=== PATIENT | female | born 1995 | race Caucasian/White ===

== ENCOUNTER 2021-12-09 22:00 | Outpatient (CLI) | payer BC, SELFPAY ==
[2021-12-11 10:03] LABS: Estradiol Premenol Female 36 pg/mL
[2021-12-11 13:35] LABS: Follicle Stimulating Hormone 6.6 IU/L
[2021-12-13 10:10] LABS: Progesterone, HPLC-MS/MS < 0.10 ng/mL
== END 2021-12-09 22:01 | disposition home or self-care (01) ==
PROVIDERS: Visit Provider Registered Nurse
DX: Z31.41 Encounter for fertility testing (principal)
CPT/HCPCS: 82670; 83001; 84144

== ENCOUNTER 2021-12-16 10:04 | Outpatient (CLI) | payer BC, SELFPAY ==
--- NOTE | 2021-12-16 10:15 | CRLHL7_ITS ---
For Patients: As a result of the Century Cures Act, medical imaging exams and procedure reports are released immediately into your electronic medical record. You may view this report before your referring provider. If you have questions, please contact your health care provider. Indication: INFERTILITY Technique: Routine hysterosalpingogram performed. Fluoroscopy time 29 seconds. IMPRESSION: Normal appearance of the endometrial canal. Normal opacification of the fallopian tubes with normal spillage into the peritoneal cavity. Dictated by Castillo Figueroa MD @ 12/16/2021 11:19:11 AM (Electronically Signed)
--- NOTE | 2021-12-16 10:42 | P.PCN_ITS ---
Procedure Note Time Seen by Provider: 10:25 Date Seen: 12/16/21 Date of procedure: 12/16/21 Will [facility] bill your pro fee for this procedure?: Yes Procedure Description: DATE: 12/16/2021 PREPROCEDURE DIAGNOSIS: Infertility POSTPROCEDURE DIAGNOSIS: 1. Infertility NAME OF PROCEDURE: Hysterosalpingogram, catheter placement. ANESTHESIA: None. COMPLICATIONS: None. PROCEDURE: After obtaining verbal consent, the patient was placed in the dorsal lithotomy position on the x-ray table. An open-sided bivalve speculum was introduced into the vagina and the cervix easily visualized. The cervix and vagina were then prepped with Betadine. Os binder/cervical dilator used: No. A balloon tipped double-lumen catheter was then gently inserted through the cervical opening into the uterine cavity to the level of the fundus. The ba lloon was insufflated with 3 mL of air. The speculum was removed. The patient was repositioned in the supine position, covered, and the radiologist was called to the room. A hysterosalpingogram was then performed. A total of 5 cc of Optiray 300 water soluble contrast dye was injected through the double-lumen catheter under moderate pressure. There was immediate fill of the uterine cavity to the cornua and immediate fill of both fallopian tubes with spill of the contrast I into pelvis. The balloon was deflated. The catheter was removed. The patient tolerated the procedure well, though she did have moderate cramping discomfort during and just after the procedure. She was discharged to home in stable condition and make an appointment with her physician to review all of her lab results and procedure results. Normal hysterosalpingogram results were reviewed with the patient prior to her leaving the radiology suite. Surgeon: Kelsie Fernandez MD Pathology: none sent Condition: stable
== END 2021-12-16 10:05 | disposition home or self-care (01) ==
LOC: RAD 10:05
PROVIDERS: Visit Provider Registered Nurse
DX: Z31.41 Encounter for fertility testing (principal)
CPT/HCPCS: 58340; 74740; A4649; Q9967

== ENCOUNTER 2021-12-26 15:45 | Outpatient (CLI) | payer SELFPAY | END 2021-12-26 15:46 | disposition home or self-care (01) | PROVIDERS: Visit Provider Registered Nurse | DX: Z31.9 Encounter for procreative management, unspecified (principal) | CPT/HCPCS: 84144 ==

== ENCOUNTER 2022-01-24 13:10 | Outpatient (CLI) | payer BC, SELFPAY ==
--- OUTSIDE RECORDS SUMMARY | 2022-01-24 14:08 | XMS_ITS | Encounter Summary ---
:1995 Author Organization [facility] [place] [address] Care Team Providers Name Role Phone Zaynab Roberts M.D. Primary Care Provider [phone] Encounter Details Date Type Department Care Team Description 09/07/2017 Nurse Only Department of Family Rabia Null, Medicine, [facility]. in [facility] [address] [place] [address] [place] [address] Social History Tobacco Use Types Packs/Day Years Used Date Smoking Tobacco: Never Smokeless Tobacco: Never Alcohol Use Standard Drinks/Week Comments Yes 0 (1 standard drink = 0.6 oz pure alcoho l) occasional Alcohol Habits Answer Date Recorded How often do you have a drink containing alcohol? Not asked How many drinks containing alcohol do you have on a typical Not asked day when you are drinking? How often do you have six or more drinks on one occasion? No t asked Comment: occasional 06/05/2017 Sex Assigned at Date Recorded Female 07/27/2019 2:28 PM CDT documented as of this encounter Plan of Treatment Not on filedocumented as of this encounter Procedures Procedure Name Priority Date/Time Associated Diagnosis Comme nts TB SKIN TEST - Routine 09/09/2017 9:08 AM Preplacement Exam Re sults for this NURSING CDT procedure are i n the results section. documented in this encounter Results TB Skin Test - Nursing (09/09/2017 9:08 AM CDT) P athologist Signature TB Skin Test 0 [facility] Induration 0 mm [facility] Specimen (Source) Anatomical Collection Method Collection Time Re ceived Time Location / / Volume Laterality Other, Specify in 09/09/2017 9:08 AM Comments CDT Zaynab Roberts M.D. IMMUNIZATION ORDERABLE S Performing Organization Address City/State/ZIP Code Phon e Number [facility] [address] [place] [address] documented in this encounter Visit Diagnoses Diagnosis Preplacement Exam documented in this encounter Care Teams Punch Hand Relationship Specialty Start Date End Date Zaynab Roberts M.D. PCP - General 10/16/16 06/13/[address], [place] [address] documented as of this encounter
--- OUTSIDE RECORDS SUMMARY | 2022-01-24 14:08 | XMS_ITS | Encounter Summary ---
:1995 Author Organization [facility] [place] [address] Care Team Providers Name Role Phone Zaynab Roberts M.D. Primary Care Provider [phone] Encounter Details Date Type Department Care Team Description 04/09/2018 Orders Only Department of Family Norma barraza Epigastric Medicine, Zaynab Kulkarni, (Primary Dx) Clinic, in [place] [address] [address] [phone] Social History Tobacco Use Types Packs/Day Years [...] Not on filedocumented as of this encounter Visit Diagnoses Diagnosis Pain Epigastric - Primary documented in this encounter Care Teams Water Taxi Operator Relationship Specialty Start Date End Date Zaynab Roberts M.D. PCP - General 10/16/16 06/13/202199 [place] [address] documented as of this encounter
--- OUTSIDE RECORDS SUMMARY | 2022-01-24 14:08 | XMS_ITS | Encounter Summary ---
:1995 Author Organization [facility] [place] [address] Care Team Providers Name Role Phone Jake Villegas M.D. Primary Care Provider Reason for Referral Specialty Diagnoses / Procedures Referred By Contact Refer red To Contact Jake Villegas M.D . [facility] [address] [place] [address] Referral ID Status Reason Start Date Expiration Date Visits Requ ested Visits Authorized ALK [id number] Encounter Details Date Type Department Care Team Description 03/30/2021 Orders Only [facility] PCP TH ANASTASIAT Shalini Villegas M.D. [address] [place] [phone] (Wo rk) Social History Tobacco Use Types Packs/Day Years [...] as of this encounter Plan of Treatment Scheduled Referrals Name Type Priority Associated Order Schedule Diagnoses Covid immunization Outpatient Referral Routine Ex pected: office visit Booster 021 (Approximate), Expires: 03/30/2022 documented as of this encounter Visit Diagnoses Not on filedocumented in this encounter Care Teams Neck Skewer Relationship Specialty Start Date End Date Jake Villegas M.D. PCP - General 06/14/[address] [place] [address] [place] [address] documented as of this encounter
--- OUTSIDE RECORDS SUMMARY | 2022-01-24 14:08 | XMS_ITS | Encounter Summary ---
:1995 Author Organization [facility] [place] [address] Care Team Providers Name Role Phone Zaynab Roberts M.D. Primary Care Provider [phone] Reason for Visit Reason Comments Other Stomach issues- pain, loose stools. Passed out the other day in the bath room, vomited Appointment Request (Routine) - Closed Specialty Diagnoses / Procedures Referred By Contact Refer red To Contact Family Medicine Referral ID Status Reason Start Date Expiration Date Visits Requ ested Visits Authorized [id number] Closed 03/19/2018 03/19/2019 1 1 Encounter Details Date Type Department Care Team Description 03/29/2018 Office Visit Department of [facility] Norma barraza [facility], Zaynab Kulkarni Abdomina l (Primary Dx) Clinic, in [place] [address] [address] Social History Tobacco Use Types Packs/Day Years [...] PM CDT documented as of this encounter Last Filed Vital Signs Vital Sign Reading Time Taken Comments Blood Pressure 118/60 03/29/2018 2:00 PM DEPUTY CLERK OF [address]PERIOR [address] Pulse 76 03/29/2018 2:00 PM DEPUTY CLERK OF SUPERIOR [facility] Temperature 37 ??C (98.6 ??F) 03/29/2018 2:00 PM DEPUTY CLERK OF SUPERIOR [facility] Respiratory Rate 16 03/29/2018 2:00 PM DEPUTY CLERK OF SUPERIOR COURT Oxygen Saturation - - Inhaled Oxygen Concentration - - Weight 79.1 kg (174 lb 6.1 oz) 03/29/2018 2:00 PM DEPUTY CLERK OF SUPERIOR [facility] Height 171 cm (5' 7.32) 03/29/2018 2:00 PM DEPUTY CLERK OF SUPERIOR [facility] Body Mass Index 27.05 03/29/2018 2:00 PM DEPUTY CLERK OF SUPERIOR [facility] documented in this encounter Progress Notes Zaynab Roberts M.D. - 03/29/2018 2:00 PM CST CHIEF COMPLAINT/ REASON FOR VISIT Stomach issues. HISTORY OF PRESENT ILLNESS Chandrika Esqueda is a 23 y.o. female who presents to the clinic today for stomach issues. She states that for the last 2 months, after she eats, and then immediately would experience some abdominal cramping and pain and then she needs to have a bowel movement immediately. Then two weeks ago, shefelt like she needed to have a bowel movement, but then for the next 30 minutes, she did not recall what had happen. When she came to she was dripping in sweat and she had vomited at least twice. When she does have an urgent bowel movement, it is still formed stool and very rarely watery. She also notes that for the last two weeks, she does not experience the sensation that she is hungry. She will instead get a pit in her stomach and once she eats, this will go away. Her cramps have been more in her upper abdomen as well. When she had all of these issues in high school, she had numerous testing done, including endoscopies, which did not reveal any colitis The patient denies any additional questions or concerns at this time. SYSTEMS REVIEW Please see HPI for pertinent positives, otherwise rest of ROS negative. MEDICATIONS Current Outpatient Prescriptions Medication Sig Dispense Refill ??? desogestrel-ethinyl estradiol (for_APRI) 0.15-0.03 mg per tablet Take 1 tablet by mouth daily. 84 tablet 3 ??? triamcinolone (for_KENALOG) 0.1 % ointment Apply 1 application topically 2 (two) times a day as needed for irritation or rash. 80 g 1 No current facility-administered medications for this visit. ALLERGIES Allergies Allergen Reactions ??? Amoxicillin Rash PAST MEDICAL / SURGICAL HISTORY Past Medical History: Diagnosis Date ??? Other Intestinal Malabsorption (HCC) Past Surgical History: Procedure Laterality Date ??? TONSILLECTOMY AND ADENOIDECTOMY N/A ??? UPPER GASTROINTESTINAL ENDOSCOPY N/A 01/21/2012 with colonoscopy PREVENTIVE SERVICES Social History Substance Use Topics ??? Smoking status: Never Smoker ??? Smokeless tobacco: Never Used ??? Alcohol use Yes Comment: occasional VITAL SIGNS Vitals: 03/29/18 1400 BP: 118/60 Patient Position: Sitting Pulse: 76 Temp: 37 ??C Resp: 16 Height: 171 cm Weight: 79.1 kg Body mass index is 27.05 kg/m??. PHYSICAL EXAMINATION General: Patient is alert and oriented times three, in no acute distress, good hygiene and is dressed appropriately. HEENT: Tympanic membranes are normal bilaterally. Oropharynx is without erythema or exudate. Nasal mucosa is without injection. Neck is without adenopathy. Lymph nodes: Not palpably enlarged and no nodules are palpated. Heart: Regular rate and rhythm without murmur. Lungs: Clear to auscultation. Abdomen: Soft and nontender with no masses. Extremities: Within normal limits. Skin: No rashes or suspicious lesions noted on exposed skin. ASSESSMENT / PLAN #1 Pain Generalized Abdominal, episodic with nausea PLAN: She will schedule an abdominal ultrasound at her convenience. Further recommendations pending these results. Follow up The patient will contact the clinic with any new or worsening symptoms. This document serves as a record of services personally performed by Zaynab Sanchez MD. It was created on their behalf by Hyacinth Moreno, a trained medical asst. The creation of this record is based on the scribe's personal observations and the provider's statements to them. This document has been ch ecked and approved by the attending provider. TY CLERK OF SUPERIOR COURT documented in this encounter Plan of Treatment Not on filedocumented as of this encounter Results US Abdomen Complete (04/05/2018 8:20 AM DEPUTY CLERK OF SUPERIOR COURT) Anatomical Region Laterality Modality Abdomen, Ultrasound RST LOS, Ultrasound ARZ LOS, Ultrasound FLA N/A Ultrasound LOS Specimen (Source) Anatomical Collection Method Collection Time Re ceived Time Location / / Volume Laterality 04/05/2018 8:21 AM DEPUTY CLERK OF SUPERIOR COURT Impressions 04/05/2018 8:24 AM DEPUTY CLERK OF SUPERIOR COURT IMPRESSION: Negative. Narrative 04/05/2018 8:24 AM DEPUTY CLERK OF SUPERIOR COURT EXAM: US ABDOMEN COMPLETE COMPARISON: CT 04/11/11. Ultrasound . FINDINGS: Liver: Normal. Gallbladder: Normal. Intrahepatic ducts: Not dilated. Common duct: Not dilated. Pancreas: Normal where seen. Right kidney: ?? Length: 10.2 cm. Normal echogenicity. No hydronephrosis. Left kidney: ?? Length: 10.2 cm. Normal echogenicity. No hydronephrosis. Spleen: Normal. ??Spleen length: 11.2 cm Aorta: Normal caliber. IVC: Normal where seen. Ascites: ??None. Procedure Note Castillo Valiente M.D. - 04/05/2018 EXAM: US ABDOMEN COMPLETE COMPARISON: CT 04/11/11. Ultrasound . FINDINGS: Liver: Normal. Gallbladder: Normal. Intrahepatic ducts: Not dilated. Common duct: Not dilated. Pancreas: Normal where seen. Right kidney: Length: 10.2 cm. Normal echogenicity. No hydronephrosis. Left kidney: Length: 10.2 cm. Normal echogenicity. No hydronephrosis. Spleen: Normal. Spleen length: 11.2 cm Aorta: Normal caliber. IVC: Normal where seen. Ascites: None. IMPRESSION: Negative. Zaynab Roberts M.D. IMG US PROCEDURES documented in this encounter Visit Diagnoses Diagnosis Pain Generalized Abdominal - Primary Pain Generalized Abdominal documented in this encounter Care Teams Tile Designer Relationship Specialty Start Date End Date Zaynab Roberts M.D. PCP - General 10/16/16 06/13/[address] [address] documented as of this encounter
--- OUTSIDE RECORDS SUMMARY | 2022-01-24 14:08 | XMS_ITS | Encounter Summary ---
:1995 Author Organization [facility] [place] [address] Care Team Providers Name Role Phone Zaynab Roberts M.D. Primary Care Provider Encounter Details Date Type Department Care Team Description 03/03/2017 Orders Only Department of Family Norma Scr eening Examination Diabetes Mellitus; Medicine in [place], León pandya Medical Examination Adult [facility].DJoshua [address] [facility] [address] [place] [address] [place], [place] [phone] Social History Tobacco Use Types Packs/Day Years Used Date Smoking Tobacco: Never Sex Assigned at Date Recorded Female 07/27/2019 2:28 PM CDT documented as of this encounter Plan of Treatment Not on filedocumented as of this encounter Visit Diagnoses Diagnosis Screening Examination Diabetes Mellitus General Medical Examination Adult documented in this encounter Care Teams Black Leather Buffer Relationship Specialty Start Date End Date Zaynab Roberts M.D. PCP - General 10/16/16 06/13/20 [address] [place] [address] documented as of this encounter
--- OUTSIDE RECORDS SUMMARY | 2022-01-24 14:08 | XMS_ITS | Encounter Summary ---
:1995 Author Organization [facility] [place] [address] Care Team Providers Name Role Phone Zaynab Roberts M.D. Primary Care Provider Reason for Visit Reason Onset Date Comments Testing For Upper Respiratory Virus Symptoms 04/11/2020 Encounter Details Date Type Department Care Team Description 04/11/2020 External Outreach Department of [facility] Wily Driver [facility], [facility] Carine Steve Respiratory (Primary Building, in [address]) [place], [place] [address] [facility] [address] [place], [place] [phone] [address] (Work) [phone] Social History Tobacco Use Types Packs/Day Years [...] PM CDT documented as of this encounter Progress Notes Cassi Lei R.N. - 04/11/2020 8:28 AM CST Encounter created for symptomatic infectious disease screening with possible COVID, Influenza, and RSV testing. ASS POWER PLANT MANAGER documented in this encounter Plan of Treatment Not on filedocumented as of this encounter Procedures Procedure Name Priority Date/Time Associated Comments Diagnosis SARS CORONAVIRUS 2 Routine 04/11/2020 12:10 Resul ts for this PCR DETECT, V PM BIOMASS POWER PLANT MANAGER procedure are in the results section. documented in this encounter Results SARS Coronavirus 2 RNA Detection (04/11/2020 12:10 PM BIOMASS POWER PLANT MANAGER) [facility] Method Time Signature SARS-CoV-2 Nasopharynx 04/12/2020 [facility] Specimen 4:04 AM BIOMASS POWER PLANT MANAGER Source SARS-CoV-2 Undetected Undetected 04/12/2020 [facility] RNA by PCR 4:04 AM BIOMASS POWER PLANT MANAGER Comment: SARS-CoV-2 RNA absent. This result does not rule out COVID-19 in the patient, as the sensitivity of the test depends o n the timing of the specimen collection and the quality of the specim en. Result should be correlated with patient's history and clinical presentat ion. ----ADDITIONAL INFORMATION---- This PCR test was performed using the Graspr SARS-CoV-2 assay ([employer] on the ban 6800 System under emergency use authorization (EUA) by the U.S. Food and Drug Administ ration. Fact sheets for this assay can be found at the following links: For Healthcare Providers: https://www.fd a.gov/media/550272/download For Patients: https://www.fda.gov/media/ 311010/download Specimen Anatomical Collection Method Collection Time Receive d Time (Source) Location / / Volume Laterality Varies 04/11/2020 12:10 04/11/2020 PM BIOMASS POWER PLANT MANAGER 10:48 PM BIOMASS POWER PLANT MANAGER Wily Driver D.O. LAB MICROBIOLOGY - GENERAL O RDERABLES Performing Organization Address City/State/ZIP Code Phon e Number [facility] [address] [place], [place] [address] [place] [address] [facility] [place] [address] Laboratory Medicine and Pathology [address] [place] documented in this encounter Visit Diagnoses Diagnosis Infection Upper Respiratory - Primary documented in this encounter Additional Health Concerns Infection Onset Date Last Indicated Resolved Time COVID19 Pending 04/11/2020 04/11/2020 04/11/2020 2:39 PM BIOMASS POWER PLANT MANAGER documented as of this encounter Care Teams Group Marketing Vp Relationship Specialty Start Date End Date Zaynab Roberts M.D. PCP - General 10/16/16 06/13/[address] [address] documented as of this encounter
--- OUTSIDE RECORDS SUMMARY | 2022-01-24 14:08 | XMS_ITS | Encounter Summary ---
:1995 Author Organization [facility] [place] [address] Care Team Providers Name Role Phone Zaynab Roberts M.D. Primary Care Provider Reason for Visit Reason Onset Date Comments Med Refill 05/07/2017 Encounter Details Date Type Department Care Team Description 05/07/2017 Clinical Communication Department of [facility] Laura Chang Med Refill Medicine, [facility], in [place] [address] [place] [address] [phone] Social History Tobacco Use Types Packs/Day Years Used Date Smoking Tobacco: Never Sex Assigned at Date Recorded Female 07/27/2019 2:28 PM CDT documented as of this encounter Miscellaneous Notes Telephone Encounter - Berna Wang, RJoshuaNJoshua - 05/07/2017 2:04 PM CST Notified Rx sent to pharmacy. GENERATION MARKETING MANAGER Telephone Encounter - Zaynab Roberts M.D. - 05/07/2017 2:00 PM LEAD GENERATION MARKETING MANAGER done GENERATION MARKETING MANAGER Telephone Encounter - Joann Fay - 05/07/2017 10:41 AM CST Pts mom Oralia calling regarding refill, pharmacy faxed yesterday, pt is out. Please call back GENERATION MARKETING MANAGER documented in this encounter Plan of Treatment Not on filedocumented as of this encounter Visit Diagnoses Not on filedocumented in this encounter Care Teams Muskrat Trapper Relationship Specialty Start Date End Date Zaynab Roberts M.D. PCP - General 10/16/16 06/13/20 [address] [place] [address] documented as of this encounter
--- OUTSIDE RECORDS SUMMARY | 2022-01-24 14:08 | XMS_ITS | Encounter Summary ---
:1995 Author Organization [facility] [place] [address] Care Team Providers Name Role Phone Zaynab Roberts M.D. Primary Care Provider [phone] Reason for Visit Reason Comments Eye Exam Outpatient (Routine) - Closed Specialty Diagnoses / Procedures Referred By Contact Refer red To Contact Ophthalmology Stephen Jimneez Jr., M.D. [facility] [address] [place] [address] Referral ID Status Reason Start Date Expiration Date Visits Requ ested Visits Authorized [id number] Closed 10/08/2017 10/08/2018 1 1 Encounter Details Date Type Department Care Team Description 12/06/2018 Comprehensive Visit Department of Stephen Jimenez Vision Examination Ophthalmology brayan Chamberlain Jr., M.D. Normal (Primary Dx) [place], [place] [address] [phone] Social History Tobacco Use Types Packs/Day Years [...] documented as of this encounter Progress Notes Stephen Jimenez M.D. - 12/06/2018 3:45 PM CDT Chandrika Esqueda was seen today for Eye Exam #1 Vision Examination Normal #1 RTO 3-5 years documented in this encounter Plan of Treatment Not on filedocumented as of this encounter Visit Diagnoses Diagnosis Vision Examination Normal - Primary documented in this encounter Care Teams Horticultural Farmer Relationship Specialty Start Date End Date Zaynab Roberts M.D. PCP - General 10/16/16 06/13/20 [address], [place] [phone] documented as of this encounter
--- OUTSIDE RECORDS SUMMARY | 2022-01-24 14:08 | XMS_ITS | Encounter Summary ---
:1995 Author Organization [facility] [place] [address] Care Team Providers Name Role Phone Jake Villegas M.D. Primary Care Provider Encounter Details Date Type Department Care Team Description 07/24/2020 Admin Visit Department of Family Medicine, [address] [address] [facility] [phone] Social History Tobacco Use Types Packs/Day Years [...] Diagnoses Not on filedocumented in this encounter Additional Health Concerns Infection Onset Date Last Indicated Resolved Time COVID19 Pending 07/24/2020 07/24/2020 07/25/2020 4:38 AM CDT documented as of this encounter Care Teams Rocket Assembly Operator Relationship Specialty Start Date End Date Jake Villegas M.D. PCP - General 06/14/[address] [place], [place] [address] [address] documented as of this encounter
--- OUTSIDE RECORDS SUMMARY | 2022-01-24 14:08 | XMS_ITS | Encounter Summary ---
:[address] [place] [place] [address] Care Team Providers Name Role Phone Margarita Roberts M.D. Primary Care Provider [phone] Encounter Details Date Type Department Care Team Description 02/25/2017 Hospital Encounter HX [facility] Margarita Peterson M.D. [address] [place], [place] [phone] (Wo rk) Social History Tobacco Use Types Packs/Day Years Used Date Smoking Tobacco: Never Sex Assigned at Date Recorded Female 07/27/2019 2:28 PM CDT documented as of this encounter Last Filed Vital Signs Vital Sign Reading Time Taken Comments Blood Pressure - - Pulse - - Temperature - - Respiratory Rate - - Oxygen Saturation - - Inhaled Oxygen Concentration - - Weight - - Height 169 cm (5' 6.54) 02/25/2017 9:28 AM CDT Body Mass Index - - documented in this encounter Medications at Time of Discharge Medication Sig Dispensed Refills Start Date End Date desogestrel-ethinyl Take 1 tablet by 0 04/15/2016 05/07/2017 estradiol (for_APRI) mouth daily. 0.15-0.03 mg per tablet documented as of this encounter Miscellaneous Notes Miscellaneous - Margarita Roberts M.D. - 02/26/2017 11:31 PM CDT Custom Result Letter February 26, 2017 CHANDRIKA ESQUEDA [address] [facility] [id number] Dear Beatriz LICONA, Your thyroid test is normal. Result Name Current Result Normal Range TSH, Sensitive-Higgins (mIU/L) 1.9 02/25/2017 0.3-4.2 - Sincerely, MARGARITA TRUJILLO [address] [place] [address] Electronic Signature Electronically Signed By: MARGARITA PALAFOX MD On: February 26, 2017 This document has images extracted. Source: [facility] POWERCHART Document Id: [id number] Miscellaneous - Margarita Roberts M.D. - 02/25/2017 8:12 PM CDT Custom Result Letter February 25, 2017 CHANDRIKA ESQUEDA [address] [facility] [id number] Dear Beatriz LICONA, Your blood counts are normal, chemistries including sugar are good, and cholesterol is excellent. Result Name Current Result Normal Range Sodium Lvl (mmol/L) 139 02/25/2017 135 - 145 Potassium Lvl (mmol/L) 4.7 02/25/2017 3.6 - 5.2 Glucose Fasting (mg/dL) 91 02/25/2017 70 - 99 Creatinine (mg/dL) 0.77 02/25/2017 0.60 - 1.10 EGFR (MDRD) (mL/min/1.73m2) >60 02/25/2017 >=60 - BUN (mg/dL) 10 02/25/2017 6 - 21 Calcium Lvl (mg/dL) 9.3 02/25/2017 8.0 - 10.3 Cholesterol (mg/dL) 168 02/25/2017 - <=199 Trig (mg/dL) 110 02/25/2017 - <=149 HDL (mg/dL) 57 02/25/2017 >=50 - LDL Calculated (mg/dL) 89 02/25/2017 - <=129 Chol/HDL Ratio 3.00 02/25/2017 080 LDL/HDL 2 02/25/2017 Hgb (g/dL) 12.9 02/25/2017 12.0 - 15.5 WBC (x10(9)/L) 5.8 02/25/2017 3.4 - 10.5 MCV (fL) 87.1 02/25/2017 82.0 - 98.0 Platelet (x10(9)/L) 191 02/25/2017 150 - 450 Sincerely, MARGARITA TRUJILLO [address] [place] [address] Electronic Signature Electronically Signed By: MARGARITA PALAFOX MD On: February 25, 2017 This document has images extracted. Source: [facility] POWERCHART Document Id: [id number] documented in this encounter Plan of Treatment Not on filedocumented as of this encounter Procedures Procedure Name Priority Date/Time Associated Diagnosis Comme nts LIPID PANEL, S Routine 02/25/2017 9:44 AM Results for this CDT procedure are i n the results section. THYROID FUNCTION Routine 02/25/2017 9:44 AM Resul ts for this CASCADE, S CDT procedure are i n the results section. CBC WITHOUT Routine 02/25/2017 9:44 AM Results f or this DIFFERENTIAL, B CDT procedure ar e in the results section. BASIC METABOLIC Routine 02/25/2017 9:44 AM Result s for this PANEL, S/P CDT procedure are i n the results section. documented in this encounter Results CBC without Differential (02/25/2017 9:44 AM CDT) P athologist Signature Leukocytes 5.8 3.4 - 10.5 POWERCHART X109L Erythrocytes 4.41 3.90 - 5.03 POWERCHART [id number] Hemoglobin 12.9 12.0 - 15.5 POWERCHART GDL Hematocrit 38.4 34.9 - 44.5 POWERCHART MCV 87.1 82.0 - 98.0 POWERCHART FL HX RDW 12.2 11.9 - 15.5 POWERCHART Platelet Count 191 150 - 450 POWERCHART X109L Specimen (Source) Anatomical Collection Method Collection Time Re ceived Time Location / / Volume Laterality Blood 02/25/2017 9:44 AM CDT Margarita Roberts M.D. LAB BLOOD ADD-ON Performing Organization Address City/State/ZIP Code Phon e Number POWERCHART POWERCHART NA Thyroid Function [place] (02/25/2017 9:44 AM CDT) P athologist Signature TSH, Sensitive 1.9 0.3 - 4.2 POWERCHART JENELLE Comment: Test Performed by: [address] [address] Specimen (Source) Anatomical Collection Method Collection Time Re ceived Time Location / / Volume Laterality Blood 02/25/2017 9:44 AM CDT Margarita Roberts M.D. LAB BLOOD ADD-ON Performing Organization Address City/State/ZIP Code Phon e Number POWERCHART POWERCHART NA Lipid Panel (02/25/2017 9:44 AM CDT) P athologist Signature Cholesterol, 168 <=199 MGDL POWERCHART Total Comment: 2014 National Lipid Association recommen dations for Total Cholesterol in adults ages 18 and up: Desirable <200 mg/dL Borderline high 200-239 mg/dL High 240 mg/dL 2014 National Lipid Association recommen dations for Total Cholesterol in children ages 2 to 17. Acceptable <170 mg/dL Borderline High 170-199 mg/dL High 200 mg/dL HX HDL 57 >=50 MGDL POWERCHART Comment: 2014 National Lipid Association recommen dations for HDL-C in adults ages 18 and up: Low <40 mg/dL (Men) Low <50 mg/dL (Women) 2014 National Lipid Association recommen dations for HDL-C in children ages 2 to 17. Low <40 mg/dL Borderline Low 40-45 mg/dL Acceptable >45 mg/dL Triglycerides 110 <=149 MGDL POWERCHART Comment: 2014 National Lipid Association recommen dations for Triglycerides in adults ages 18 and up: Normal <150 mg/dL Borderline High 150-199 mg/dL High 200-499 mg/dL Very High 500 mg/dL 2014 National Lipid Association recommen dations for Triglycerides in children ages 2 to 9. Acceptable <75 mg/dL Borderline High 75-99 mg/dL High 100 mg/dL 2014 National Lipid Association recommen dations for Triglycerides in children ages 10 to 17. Acceptable <90 mg/dL Borderline High 90-129 mg/dL High 130 mg/dL Trigs >400mg/dL: Triglycerides >400 mg/ dL. Calculated LDL cholesterol is not valid. Non-HDL cholesterol may be used for risk assessment when triglycerides are >400mg/dL. Calculated LDL 89 <=129 MGDL POWERCHART Comment: 2013 National Lipid Association recommen dations for LDL-C in adults ages 18 and up: Desirable <100 mg/dL Above desirable 100-129 mg/dL Borderline high 130-159 mg/dL High 160-189 mg/dL Very High 190 mg/dL 2014 National Lipid Association recommen dations for LDL-C in children ages 2 to 17. Acceptable <110 mg/dL Borderline High 110-129mg/dL High 130 mg/dL LDL-C >190mg/dL: The markedly elevated LDL level is suggestive of a genetic condition such as familial hypercholesterolemia(FH) or familial defective apolipoprotein B-100 (FDB). Molecular genetic t esting for FH and FDB is available adonisu [facility]: FH/ADH Genetic Reflex Almazan el (test ADHP). Acquired (non-genetic) causes of markedly increased LDL cholesterol include cholestatic liver disease due to the presence of LpX. If a genetic form of hypercholesterolemia is suspected, family studies including biochemical testing fo r lipids (total cholesterol,triglycerides, LDL cholesterol and HDL cholesterol) are recommended. ??Please contact the laboratory at or the on-line test catalog at [employer] for information about how to order these timmy ts or to speak with a genetic counselor. Further interpretation would require clinical information. Total Cholesterol/HDL Ratio 3.00 PO WERCHART HXLDL/HDL 2 POWERCHART Specimen (Source) Anatomical Collection Method Collection Time Re ceived Time Location / / Volume Laterality Blood 02/25/2017 9:44 AM CDT Margarita Roberts M.D. LAB BLOOD ADD-ON Performing Organization Address City/State/ZIP Code Phon e Number POWERCHART POWERCHART NA BMP (Basic Metabolic Panel) (02/25/2017 9:44 AM CDT) P athologist Signature Sodium, S 139 135 - 145 POWERCHART MMOLL Potassium, S 4.7 3.6 - 5.2 POWERCHART MMOLL Chloride, S 105 98 - 107 POWERCHART MMOLL CO2 Total 25 22 - 29 POWERCHART MMOLL Comment: Reference ranges have not been established for patients that are <12 months of age. Glucose, Fasting, S 91 70 - 99 MGDL POWERCH ART BUN (Blood Urea Nitrogen), S 10 6 - 21 MGDL POWERCHART Creatinine 0.77 0.60 - 1.10 MGDL POWERCHART Calcium, Total, S 9.3 8.0 - 10.3 MGDL POWERC JARA Anion Gap 9 7 - 15 MMOLL POWERCHART HXeGFR (MDRD) >60 >=60 [id number] POWERCHART eGFR Black/ >60 >=60 [id number] POWERCHART Specimen (Source) Anatomical Collection Method Collection Time Re ceived Time Location / / Volume Laterality Blood 02/25/2017 9:44 AM CDT Margarita Roberts M.D. LAB BLOOD ADD-ON Performing Organization Address City/State/ZIP Code Phon e Number POWERCHART POWERCHART NA documented in this encounter Visit Diagnoses Not on filedocumented in this encounter Care Teams Welder Journeyman Relationship Specialty Start Date End Date Margarita Roberts M.D. PCP - General 10/16/16 06/13/[address] [address] documented as of this encounter
--- OUTSIDE RECORDS SUMMARY | 2022-01-24 14:08 | XMS_ITS | Encounter Summary ---
:1995 Author Organization [facility] [place] [address] Care Team Providers Name Role Phone Jake Villegas M.D. Primary Care Provider Reason for Referral Specialty Diagnoses / Procedures Referred By Contact Refer red To Contact Jake Villegas M.D . [facility] [address] [place] [address] Referral ID Status Reason Start Date Expiration Date Visits Requ ested Visits Authorized Encounter Details Date Type Department Care Team Description 01/20/2022 Orders Only [facility] PCP [facility] Shalini Villegas M.D. [address] [place] [phone] (Wo rk) Social History Tobacco [...] Outpatient Referral Routine Ex pected: office visit 01/20/2022 Immuno/Booster (Approximate) , Expires: 01/20/2023 documented as of this encounter Visit Diagnoses Not on filedocumented in this encounter Care Teams Sports Marketing Internship Relationship Specialty Start Date End Date Jake Villegas M.D. PCP - General 06/14/[address] [place] [phone] documented as of this encounter
--- OUTSIDE RECORDS SUMMARY | 2022-01-24 14:08 | XMS_ITS | Encounter Summary ---
:1994 Author Organization [facility] [place] [address] Care Team Providers Name Role Phone Zaynab Roberts M.D. Primary Care Provider Reason for Referral Outpatient (Routine) - Closed Specialty Diagnoses / Procedures Referred By Contact Refer red To Contact Ophthalmology Stephen Jimenez Jr., M.D. [facility] [address] [place] [address] Referral ID Status Reason Start Date Expiration Date Visits Requ ested Visits Authorized [id number] Closed 10/08/2017 10/08/2018 1 1 Reason for Visit Reason Comments Eye Exam Appointment Request (Routine) - Closed Specialty Diagnoses / Procedures Referred By Contact Refer red To Contact Ophthalmology Referral ID Status Reason Start Date Expiration Date Visits Requ ested Visits Authorized [id number] Closed 09/21/2017 03/20/2018 1 1 Encounter Details Date Type Department Care Team Description 10/08/2017 Comprehensive Visit Department of Stephen Jimenez Vitreous Ophthalmology brayan Chamberlain Jr., M.D. Bilateral (Primary [place], [place] [address]) [address] [place] [phone] Social History Tobacco Use Types Packs/Day Years [...] encounter Progress Notes Stephen Jimenez M.D. - 10/08/2017 8:40 AM CDT Chandrika Esqueda was seen today for Eye Exam #1 Floater Vitreous Bilateral #1 reassured, explained floaters RTO 1 year documented in this encounter Plan of Treatment Scheduled Referrals Name Type Priority Associated Order Schedule Diagnoses Ophthalmology office Outpatient Referral Routine Expected: visit (clinic) 10/08/2018 (Approximate), Expires: 10/08/2020 documented as of this encounter Visit Diagnoses Diagnosis Floater Vitreous Bilateral - Primary documented in this encounter Care Teams Labor Utilization Superintendent Relationship Specialty Start Date End Date Zaynab Roberts M.D. PCP - General 10/16/16 06/13/[address] [phone] documented as of this encounter
--- OUTSIDE RECORDS SUMMARY | 2022-01-24 14:08 | XMS_ITS | Encounter Summary ---
:1994 Author Organization [facility] [place] [address] Care Team Providers Name Role Phone Zaynab Roberts M.D. Primary Care Provider [phone] Reason for Visit Reason Comments Med Refill Encounter Details Date Type Department Care Team Description 05/31/2018 Refill Department of Family Medicine, Kike Villafana Refill [facility], in Zaynab Madrigal M.D. [place] [address] [address] [place] [address] [phone] Social History Tobacco Use Types Packs/Day Years [...] on filedocumented in this encounter Care Teams Broodmare Barn Groom Relationship Specialty Start Date End Date Zaynab Roberts M.D. PCP - General 10/16/16 06/13/[address] [place] [phone] documented as of this encounter
--- OUTSIDE RECORDS SUMMARY | 2022-01-24 14:08 | XMS_ITS | Encounter Summary ---
:[address] [facility] Address [address] [place] [address] Care Team Providers Name Role Phone Zaynab Roberts M.D. Primary Care Provider Encounter Details Date Type Department Care Team Description 06/05/2017 Nurse Triage Department of [facility] Radha Arellano , Medicine, [facility], R.N in [place], [place] [address] [facility] [address] [place] [address] [place] [address] [phone] Social History Tobacco Use Types Packs/Day Years [...] on filedocumented in this encounter Care Teams Perfume Maker Relationship Specialty Start Date End Date Zaynab Roberts M.D. PCP - General 10/16/16 06/13/20 [address] [place] [address] documented as of this encounter
--- OUTSIDE RECORDS SUMMARY | 2022-01-24 14:08 | XMS_ITS | Encounter Summary ---
:1994 Author Organization [facility] [place] [address] Care Team Providers Name Role Phone Zaynab Roberts M.D. Primary Care Provider [phone] Encounter Details Date Type Department Care Team Description 07/20/2019 Refill Department of Family Medicine, Rohan Villafana [facility], in Zaynab Madrigal M.D. [place] [address] [place] [address] [place] [address] [phone] Social History Tobacco Use Types Packs/Day Years [...] on filedocumented in this encounter Care Teams Construction Safety Consultant Relationship Specialty Start Date End Date Zaynab Roberts M.D. PCP - General 10/16/16 06/13/20[facility] [place] [address] documented as of this encounter
--- OUTSIDE RECORDS SUMMARY | 2022-01-24 14:08 | XMS_ITS | Encounter Summary ---
:1994 Author Organization [facility] [place] [address] Care Team Providers Name Role Phone Jake Villegas M.D. Primary Care Provider Encounter Details Date Type Department Care Team Description 11/20/2020 Orders Only [facility] PCP [facility] Shalini Villegas M.D. [address] [place], [place] [phone] (Wo rk) Social History Tobacco [...] on filedocumented in this encounter Care Teams Logistics Loss Prevention Manager Relationship Specialty Start Date End Date Jake Villegas M.D. PCP - General 06/14/20 [address] [place] [address] documented as of this encounter
--- OUTSIDE RECORDS SUMMARY | 2022-01-24 14:08 | XMS_ITS | Encounter Summary ---
:1994 Author Organization [facility] [address] Care Team Providers Name Role Phone Zaynab Roberts M.D. Primary Care Provider [phone] Encounter Details Date Type Department Care Team Description 04/06/2018 Clinical Communication Department of [facility] Noah Neumann, Medicine, [place] L.P.NJoshua [facility] [address] [place] [address] [place], [place] [phone] [address] (Work) [phone] Social History Tobacco Use Types Packs/Day Years [...] this encounter Miscellaneous Notes Telephone Encounter - Kelli Neumann L.P.N. - 04/09/2018 11:59 AM ASSOCIATE MATERIAL HANDLER Patient requesting upper gi endoscopy be completed at [facility] with patient returning call to clinic to schedule pre op appointment CIATE MATERIAL HANDLER Telephone Encounter - Toyin Pierre L.P.N. - 04/08/2018 8:52 AM ASSOCIATE MATERIAL HANDLER Left msg to return my call CIATE MATERIAL HANDLER Telephone Encounter - Zaynab Roberts M.D. - 04/07/2018 6:22 PM ASSOCIATE MATERIAL HANDLER . CIATE MATERIAL HANDLER Telephone Encounter - Zaynab Roberts M.D. - 04/06/2018 12:22 PM CST Inform Chandrika that the next step is to use daily omeprazole 20 mg once daily, upper GI endoscopy,consider GI consult. Please arrange for upper GI endoscopy CIATE MATERIAL HANDLER Telephone Encounter - Kelli Neumann L.PJoshuaNJoshua - 04/06/2018 11:43 AM ASSOCIATE MATERIAL HANDLER Call received from patients mom oralia asking what the next step is or plan of care for patient due toabdominal pain continuing CIATE MATERIAL HANDLER documented in this encounter Plan of Treatment Not on filedocumented as of this encounter Visit Diagnoses Not on filedocumented in this encounter Care Teams Napper Grinder Relationship Specialty Start Date End Date Zaynab Roberts M.D. PCP - General 10/16/16 06/13/20 [address] [place] [address] documented as of this encounter
--- OUTSIDE RECORDS SUMMARY | 2022-01-24 14:08 | XMS_ITS | Encounter Summary ---
:1995 Author Organization [facility] [place] [address] Care Team Providers Name Role Phone Zaynab Roberts M.D. Primary Care Provider [phone] Reason for Visit Reason Comments Med Refill Encounter Details Date Type Department Care Team Description 06/03/2017 Refill Department of Family Medicine, Kike Villafana [facility], in Zaynab Madrigal M.D. [place] [address] [address] [facility] [place] [place] [address] [phone] Social History Tobacco Use Types Packs/Day Years Used Date Smoking Tobacco: Never Sex Assigned at Date Recorded Female 07/27/2019 2:28 PM CDT documented as of this encounter Plan of Treatment Not on filedocumented as of this encounter Visit Diagnoses Not on filedocumented in this encounter Care Teams Nursing Instructor Relationship Specialty Start Date End Date Zaynab Roberts M.D. PCP - General 10/16/16 06/13/20 [address] [address] documented as of this encounter
--- OUTSIDE RECORDS SUMMARY | 2022-01-24 14:08 | XMS_ITS | Encounter Summary ---
:1994 Author Organization [facility] Address [address] [place] [address] Care Team Providers Name Role Phone Zaynab Roberts M.D. Primary Care Provider [phone] Encounter Details Date Type Department Care Team Description 09/24/2018 Nurse Triage Department of [facility] Trinidad Nelson R.N. Medicine, [facility], in [address] [place], [place] [address] [place] [address] [place] [address] [phone] Social History Tobacco Use Types Packs/Day Years [...] this encounter Miscellaneous Notes Telephone Encounter - Aletha Nelson RTaurus - 09/24/2018 11:33 AM CDT Patient notified of negative Strep Group A throat testing result. Home cares for sore throat reviewed with patient. Telephone Encounter - Aletha Nelson R.N. - 09/24/2018 9:38 AM CDT Patient was provided aftercare instructions. documented in this encounter Plan of Treatment Not on filedocumented as of this encounter Results Strep Group A, PCR, Point of Care (09/24/2018 10:47 AM CDT) Analysis Performed At Patho logist Time Signature Strep Group A, Collected DEFAULT 09/24/2018 [facility] PCR, POCT 10:48 AM CDT [facility] Specimen Anatomical Collection Method Collection Time Receive d Time (Source) Location / / Volume Laterality Varies (Throat) 09/24/2018 10:47 09/25/19 19 AM CDT 10:48 AM CDT Zaynab Roberts M.D. LAB POCT ORDERABLES - DEVICE Performing Organization Address City/State/ZIP Code Phon e Number [facility] [address] [place] [address] LAB documented in this encounter Visit Diagnoses Diagnosis Sore Throat - Primary documented in this encounter Care Teams Sewage Disposal Worker Relationship Specialty Start Date End Date Zaynab Roberts M.D. PCP - General 10/16/16 06/13/20 [address] [place] [address] documented as of this encounter
--- OUTSIDE RECORDS SUMMARY | 2022-01-24 14:08 | XMS_ITS | Encounter Summary ---
:1994 Author Organization [facility] [place] [address] Care Team Providers Name Role Phone Zaynab Roberts M.D. Primary Care Provider [phone] Reason for Referral Outpatient (Routine) - Closed Specialty Diagnoses / Procedures Referred By Contact Refer red To Contact Family Medicine YURY Roberts SE, M.D. [address] [address] Referral ID Status Reason Start Date Expiration Date Visits Requ ested Visits Authorized [id number] Closed 03/21/2019 03/20/2020 1 1 ERENCE CONCIERGE Encounter Details Date Type Department Care Team Description 03/21/2019 [facility] Only [facility] Zaynab Peterson M.D. [address] [phone] (Wo rk) Social History Tobacco [...] Treatment Scheduled Referrals Name Type Priority Associated Diagnoses Order S [facility] Family Medicine Outpatient Referral Routine Expec kayla: office visit 04/04/2019, (clinic) Expires: 03/21/2022 documented as of this encounter Visit Diagnoses Not on filedocumented in this encounter Care Teams Services Host Relationship Specialty Start Date End Date Zaynab Roberts M.D. PCP - General 10/16/16 06/13/[address] [address] documented as of this encounter
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
--- OUTSIDE RECORDS SUMMARY | 2022-01-24 14:08 | XMS_ITS | Encounter Summary ---
:1994 Author Organization [facility] Address [address] [place] [address] Care Team Providers Name Role Phone Zaynab Roberts M.D. Primary Care Provider [phone] Encounter Details Date Type Department Care Team Description 04/11/2020 Admin Visit Department of Family Medicine, [address] [address] [facility] [phone] Social History Tobacco Use Types Packs/Day Years [...] COVID19 Pending 04/11/2020 04/11/2020 04/11/2020 2:39 PM WIRELESS MANAGER documented as of this encounter Care Teams Automotive Internet Sales Consultant Relationship Specialty Start Date End Date Zaynab Roberts M.D. PCP - General 10/16/16 06/13/20 [address] [place] [address] documented as of this encounter
--- OUTSIDE RECORDS SUMMARY | 2022-01-24 14:08 | XMS_ITS | Encounter Summary ---
:1995 Author Organization [facility] [place] [address] Care Team Providers Name Role Phone Zaynab Roberts M.D. Primary Care Provider [phone] Encounter Details Date Type Department Care Team Description 08/31/2017 Orders Only Department of Family Norma Pre placement Exam Medicine, Zaynab Kulkarni, (Primary Dx) Clinic, in [place] [address] [phone] Social History Tobacco Use Types Packs/Day Years [...] on filedocumented as of this encounter Results TB Skin Test - Nursing (09/09/2017 9:08 AM CDT) P athologist Signature TB Skin Test 0 [facility] Induration 0 mm [facility] Specimen (Source) Anatomical Collection Method Collection Time Re ceived Time Location / / Volume Laterality Other, Specify in 09/09/2017 9:08 AM Comments CDT Zaynab Roberts M.D. IMMUNIZATION ORDERABLE S Performing Organization Address City/State/ZIP Code Phon e Number [facility] [address] [place] [address] documented in this encounter Visit Diagnoses Diagnosis Preplacement Exam - Primary documented in this encounter Care Teams Operations Officer Relationship Specialty Start Date End Date Zaynab Roberts M.D. PCP - General 10/16/16 06/13/[address] [place] [address] documented as of this encounter
--- OUTSIDE RECORDS SUMMARY | 2022-01-24 14:08 | XMS_ITS | Encounter Summary ---
:1995 Author Organization [facility] [place] [address] Care Team Providers Name Role Phone Zaynab Roberts M.D. Primary Care Provider [phone] Encounter Details Date Type Department Care Team Description 09/24/2018 Hospital Encounter Department of Laboratory Laura Montanez Sore Throat Medicine in maria fernanda Madrigal Judy, M.D. [place] [address] [place] [phone] Social History Tobacco Use Types Packs/Day Years [...] PM CDT documented as of this encounter Medications at Time of Discharge Medication Sig Dispensed Refills Start Date End Date desogestrel-ethinyl Take 1 tablet by 84 tablet 4 05/31/2018 07/20/2019 estradiol (APRI) mouth daily. 0.15-0.03 mg per tablet documented as of this encounter Plan of Treatment Not on filedocumented as of this encounter Procedures Procedure Name Priority Date/Time Associated Diagnosis Comme nts STREP GROUP A, PCR, Routine 09/24/2018 11:04 AM R esults for this POCT CDT procedure are i n the results section. STREP GROUP A, PCR, Routine 09/24/2018 10:47 AM Sore Throat R esults for this POCT CDT procedure are i n the results section. documented in this encounter Results Strep Group A, PCR, Point of Care (09/24/2018 11:04 AM CDT) P athologist Signature Strep Group A, Negative Negative 09/24/2018 [facility] PCR, POCT 11:04 AM CDT [facility] Specimen Anatomical Collection Method Collection Time Receive d Time (Source) Location / / Volume Laterality Varies 09/24/2018 11:04 09/24/2018 AM CDT 11:07 AM CDT Generic [facility] LAB POCT ORDERABLES - DEVICE Performing Organization Address [facility]/ZIP Code Phon e Number [facility] [address] [facility] [place] [address] LAB Strep Group A, PCR, Point of Care (09/24/2018 10:47 AM CDT) Analysis Performed At Patho logist Time Signature Strep Group A, Collected DEFAULT 09/24/2018 [facility] PCR, POCT 10:48 AM CDT [facility] Specimen Anatomical Collection Method Collection Time Receive d Time (Source) Location / / Volume Laterality Varies (Throat) 09/24/2018 10:47 09/25/19 19 AM CDT 10:48 AM CDT Zaynab Roberts M.D. LAB POCT ORDERABLES - DEVICE Performing Organization Address City/[facility]/ZIP Code Phon e Number [facility] [address] [place] [place] [address] LAB documented in this encounter Visit Diagnoses Diagnosis Sore Throat documented in this encounter Care Teams Account Representative Relationship Specialty Start Date End Date Zaynab Roberts M.D. PCP - General 10/16/16 06/13/[address] [place] [phone] documented as of this encounter
--- OUTSIDE RECORDS SUMMARY | 2022-01-24 14:08 | XMS_ITS | Encounter Summary ---
:1995 Author Organization [facility] Address [address] [place] [address] Care Team Providers Name Role Phone Jake Villegas M.D. Primary Care Provider Reason for Visit Reason Onset Date Comments Outpatient COVID-19 Testing 07/24/2020 Encounter Details Date Type Department Care Team Description 07/24/2020 External Outreach Department of Family [place] Contact With And Medicine, [facility] Fazal Steve D.O. (Suspected) Exposure Building, in [address] To COVID-19 (Primary [place], [place] Dx) [address] [facility] [address] [place], [place] [phone] [address] (Work) [phone] Social History Tobacco Use Types Packs/Day Years [...] encounter Progress Notes Cassi Lei R.N. - 07/24/2020 8:24 AM CDT Encounter created for COVID-19 screening. documented in this encounter Miscellaneous Notes Result Encounter Note - Hodan Finley P.A.-C., M.S. - 07/25/2020 9:22 AM CDT The patient has been notified and provided guidance by letter, which has been sent by portal or by mail. They have been instructed to follow up with their primary care provider as needed, unless they were enrolled with Remote Patient Monitoring due to high risk health conditions. If the PCP has questions about managing the patient, they may call the [place] Covid Care Team Doc of the Day, send an inbasket to P T[facility] COVID-19 POSITIVE, or place a Covid Care e-consult. documented in this encounter Plan of Treatment Not on filedocumented as of this encounter Procedures Procedure Name Priority Date/Time Associated Diagnosis Comme nts SARS CORONAVIRUS-2 Routine 07/24/2020 11:20 AM Contact With An d Results for this RNA, V CDT (Suspected) Exposure procedu re are in To COVID-19 the results section. documented in this encounter Results (ABNORMAL) SARS Coronavirus-2 RNA, V Asymptomatic (07/24/2020 11:20 AM CDT) [facility] Method Time Signature SARS-CoV-2 Swab, 07/25/2020 [facility] Specimen Nasopharynx 4:38 AM CDT Source SARS CoV-2 Detected (A) Undetected 07/25/2020 [facility] RNA, TMA 4:38 AM CDT Comment: SARS-CoV-2 RNA present. ----ADDITIONAL INFORMATION---- This molecular amplification test was pe rformed using the Aptima SARS-CoV-2 assay ([employer] on the Message Systemss tem under emergency use authorization (EUA) by the U.S. Food and Drug Administ ration. Fact sheets for this EUA assay can be fo und at the following links: For Healthcare Providers: https://www.StartWire a.gov/media/798945/download For Patients: https://www.fda.gov/media/ 666061/download Specimen Anatomical Collection Method Collection Time Receive d Time (Source) Location / / Volume Laterality Varies 07/24/2020 11:20 07/24/2020 7:00 (Nasopharynx) AM CDT PM CDT Wily Driver D.O. LAB MICROBIOLOGY - GENERAL O RDERABLES Performing Organization Address City/State/ZIP Code Phon e Number [facility] [address] [place] [address] [place] [address] System in [place] [address] [place] [address] documented in this encounter Visit Diagnoses Diagnosis Contact With And (Suspected) Exposure To COVID-19 - Primary documented in this encounter Additional Health Concerns Infection Onset Date Last Indicated Resolved Time COVID19 Pending 07/24/2020 07/24/2020 07/25/2020 4:38 AM CDT documented as of this encounter Care Teams Delicatessen Department Manager Relationship Specialty Start Date End Date Jake Villegas M.D. PCP - General 06/14/[address] [place] [phone] documented as of this encounter
--- OUTSIDE RECORDS SUMMARY | 2022-01-24 14:08 | XMS_ITS | Encounter Summary ---
:1995 Author Organization [facility] [place] [address] Care Team Providers Name Role Phone Jake Villegas M.D. Primary Care Provider Reason for Visit Reason Comments Finger Laceration Laceration on left thumb Encounter Details Date Type Department Care Team Description 01/04/2022 Emergency [place] [facility] Donovan Pires La ceration Without Department P.A.-C. 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 - 01/04/2022 7:09 PM CDT 3 sutures placed, recommend removal in 14 days Apply small amount of bacitracin or Vaseline to 3 times daily with Q-tip If you notice evidence of infection such as fusiform swelling of finger, purulent drainage, redness,fever, red streaking up hand, uncontrolled pain please return immediately for re-evaluation. If he noticed any loss of function of your finger as discussed please return immediately for re-evaluation. AttachmentsThe following attachments cannot be sent through Care Everywhere. Laceration Care Adult [id number] (Nepalese)documented in this encounter Medications at Time of Discharge Medication Sig Dispensed Refills Start Date End Date drospirenone-ethinyl TAKE ONE TABLET BY 84 tablet 3 021 estradioL (ASHLEY,OCELLA) MOUTH EVERY DAY 3-0.03 mg per tablet documented as of this encounter Procedure Notes Donovan Pires P.A.-C. - 01/04/2022 7:10 PM CDTAssociated Order(s): Laceration Repair Procedure Laceration Repair Date/Time: 01/06/2022 2:43 PM Performed by: Donovan Pires P.A.-C. Authorized by: Donovan Pires P.A.-C. PROCEDURE DETAILS Repair type: Simple Limited defect created (wound extended): no Contaminated: no Wound exploration: wound explored through full range of motion and entire depth of wound probed and visualized Repair method: Sutures Suture size: 4-0 Suture material: Nylon Suture technique: Simple interrupted Number of sutures: 3 Approximation: Close CONSENT Consent obtained: verbal Consent given by: patient The benefits, risks and alternatives to the procedure and the potential need for sedation or anesthesia as well as the names, roles, and responsibilities of healthcare team members performing significant interventional tasks were discussed with the patient and/or decision maker. UNIVERSAL PROTOCOL All relevant documentation and testing were reviewed and available. All required blood products, implants, devices and or special equipment were made available as applicable. Pre-procedure verificationwas conducted and the correct site was marked if required. A fire risk assessment was done as applicable. The procedural time-out to verify correct patient, correct side/site, and procedure was conducted prior to performing the procedure and confirmed in a procedural pause. SEDATION / ANESTHESIA Anesthesia method: local infiltration Local infiltrate type: lidocaine (3 mL) PRE PROCEDURE DETAILS Indication: laceration Location: Finger Finger location: Left thumb Length (cm): 1.5 Depth (mm): 3 Circulation distal to injury: capillary refill < 2 sec, warm and pink Movement distal to injury: normal Sensation distal to injury: normal Area cleansed with: Saline and povidone/iodine Amount of cleaning: Extensive Irrigation volume (mL): 500 Irrigation method: Syringe Foreign body imaging: None Appropriate hand hygiene, gown, cap, mask, protective eyewear, sterile gloves, skin preparation, sterile drape, and strict aseptic technique were utilized as applicable for the procedure.: Yes POST PROCEDURE DETAILS Procedure completed successfully: yes Tetanus status up to date: Up to date Circulation distal to injury: capillary refill < 2 sec, warm and pink Movement distal to injury: normal Sensation distal to injury: normal Complications: no immediate complications Donovan Pires P.A.-C. 01/06/22 1445 documented in this encounter ED Notes Donovan Pires P.A.-C. - 01/04/2022 7:10 PM CDT SUBJECTIVE CHIEF COMPLAINT/REASON FOR VISIT Finger Laceration (Laceration on left thumb) HISTORY OF PRESENT ILLNESS Chandrika Mosquera is a 26 y.o. female presents to [place] [facility] requesting evaluation for laceration. No significant past medical history. Last tetanus greater than 5 years ago. Just prior to arrival patient cut non dominant left thumb on a pot. Wound hemostatic upon arrival. No loss of range of motion or function. No anticoagulants. No crush mechanism. No other acute complaints or concerns. 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 Respiratory: Negative for shortness of breath. Cardiovascular: Negative for chest pain. Gastrointestinal: Negative for abdominal pain and vomiting. Musculoskeletal: Positive for extremity pain. Patient denies any new or worsening joint/muscle pain Skin: Positive for wound. Neurological: Negative for headaches. OBJECTIVE Initial Vitals Temp Pulse Rate Heart Rate Resp Blood Pressure SpO2 -- 01/04/221835 -- -- 01/04/22 1842 01/04/22 183 90 144/90 100 % Pain Score 01/04/221836 4 PHYSICAL EXAMINATION Constitutional: Nursing note and vitals reviewed. She appears not lethargic. No distress. HENT: Head: Normocephalic and atraumatic. No signs of injury. Nose: Nose normal. Mouth/Throat: Mucous membranes are moist. Eyes: Conjunctivae and EOM are normal. Pupils are equal, round, and reactive to light. Cardiovascular: Normal rate. Capillary refill: takes less than 3 seconds Pulmonary/Chest: Effort normal. No tachypnea. No respiratory distress. Musculoskeletal: General: No deformity. Normal range of motion. Comments: 1.5 cm laceration along ulnar aspect of left thumb in between MCP and interphalangeal joint. Wound hemostatic. Full range of motion to movements of abduction, adduction, extension, flexion, opposition, reposition when compared to contralateral thumb Full active and passive range of motion to flexion and extension of MCP, PIP and DIP joints. No deficits in sensory or motor innervation from bilateral ulnar, median and radial nerves. Neurological: Alert and oriented to person, place, and time. She is not disoriented. She exhibits normal muscle tone. Coordination normal. Skin: Skin is warm, dry and normal color. She is not diaphoretic. Psychiatric: She has a normal mood and affect. Behavior is normal. ED Medication Administration from 01/04/2022 1830 to 01/04/20221909 Date/Time Order Dose Route Action Action by 01/04/2022 1906 CDT lidocaine 10 mg/mL (1 %) injection 20 mL (XYLOCAINE) 20 mL injection Given Lyric Peace 01/04/2022 1904 CDT Tdap: Gvrkiap-absppfetgy-llbldymrp pertussis (PF) vaccine 0.5 mL 0.5 mL intramuscular Given Dahl, O ASSESSMENT / PLAN ASSESSMENT/PLAN IMPRESSION AND PLAN The patient presents to the ED for evaluation of finger laceration. DISPOSITION: Patient is awake, alert, oriented and appropriate to questions who is nontoxic or ill-appearing. Initial presentation to ED notable for an afebrile 26-year-old female with vital signs within normal limits. Tetanus updated. Secondary to laceration to left thumb a shared decision making discussion was had proceeding with laceration repair, see procedure note for details. 3 sutures placed. Recommend removal in 10-14 days. I encourage follow up with their primary care provider as indicated. I also encourage to return emergency department for worsening symptoms or any other concerns that they feels requires further evaluation. This plan of discharge and follow-up including all test results was discussed in detail with opportunity to ask questions during discharge process. At this time there no further questions regarding this plan and discussion. I will discharge them home in stable condition. DIFFERENTIAL DIAGNOSIS Laceration, abrasion, puncture wound, tendon injury I reviewed previous medical records including documentation from previous visits. Final Diagnoses: as of 01/06/22 1443 Laceration Without Foreign Body Left Thumb Without Damage To Nail Initial Donovan Pires P.A.-C. 01/06/22 1443 documented in this encounter Plan of Treatment Not on filedocumented as of this encounter Procedures Procedure Name Priority Date/Time Associated Diagnosis Comme nts LACERATION REPAIR Routine 01/06/2022 2:43 PM Resu lts for this CDT procedure are i n the results section. documented in this encounter Results Laceration Repair (01/06/2022 2:43 PM CDT) Narrative Donovan Pires P.A.-C. - 01/06/2022 2:4 3 PM CDT Donovan Pires P.A.-C. ? 01/06/2022 ??2:45 PM Laceration Repair Date/Time: 01/06/2022 2:43 PM Performed by: Donovan Pires P.A.-C. Authorized by: Kriett, Donovan J, P.A.-C. PROCEDURE DETAILS Repair type: ??Simple Limited defect created (wound extended): no ?? Contaminated: no ?? Wound exploration: wound explored throug h full range of motion and entire depth of wound probed and visualized ?? Repair method: ??Sutures Suture size: ??4-0 Suture material: ??Nylon Suture technique: ??Simple interrupted Number of sutures: ??3 Approximation: ??Close CONSENT Consent obtained: verbal Consent given by: patient The benefits, risks and alternatives to the procedure and the potential need for sedation or anesthesia as well as the names, roles, and responsibilities of healthcare team memb ers performing significant interventional tasks were discussed with the patient and/or decision maker. UNIVERSAL PROTOCOL All relevant documentation and testing w ere reviewed and available. All required blood products, implants, devic es and or special equipment were made available as applicable. Pre-proced ure verification was conducted and the correct site was marked if required. A fire risk assessment was done as applicable. The procedural time-out t o verify correct patient, correct side/site, and procedure was conducted p rior to performing the procedure and confirmed in a procedural pause. SEDATION / ANESTHESIA Anesthesia method: local infiltration Local infiltrate type: lidocaine (3 mL) PRE PROCEDURE DETAILS Indication: laceration ?? Location: ??Finger Finger location: ??Left thumb Length (cm): ??1.5 Depth (mm): ??3 Circulation distal to injury: capillary refill < 2 sec, warm and pink ?? Movement distal to injury: normal ?? Sensation distal to injury: normal ?? Area cleansed with: ??Saline and povidon e/iodine Amount of cleaning: ??Extensive Irrigation volume (mL): ??500 Irrigation method: ??Syringe Foreign body imaging: ??None Appropriate hand hygiene, gown, cap, mas k, protective eyewear, sterile gloves, skin preparation, sterile drape, and strict aseptic technique were utilized as applicable for the procedure .: Yes ?? POST PROCEDURE DETAILS Procedure completed successfully: yes ?? Tetanus status up to date: ??Up to date Circulation distal to injury: capillary refill < 2 sec, warm and pink ?? Movement distal to injury: normal ?? Sensation distal to injury: normal ?? Complications: no immediate complication s ?? Donovan Pires P.A.-C. PROCEDURE/MINOR SURGICAL ORD ERABLES documented in this encounter Visit Diagnoses Diagnosis Laceration Without Foreign Body Left Tiesha mb Without Damage To Nail Initial - Primary documented in this encounter Administered Medications Inactive Administered Medications - up to 3 most recent administrations Medication Order MAR Action Action Date Dose Rate Site lidocaine 10 mg/mL (1 %) injection Given 01/04/2022 7:06 PM CDT 20 mL 20 mL (XYLOCAINE) 20 mL, injection, Once, On 01/04/22 at 1842, For 1 dose documented in this encounter Active and Recently Administered Medications Times are shown in CDT. Scheduled Medication Order 01/02/2022 01/03/2022 01/04/2022 lidocaine 10 mg/mL (1 %) injection 20 mL (XYLOCAINE) (COMPLETED) 1906 (Given - Provider: Deb Peace R.N.) 20 mL, injection, Once, On 01/04/22 at 1842, For 1 dose documented in this encounter Care Teams Trolley Car Operator Relationship Specialty Start Date End Date Jake Villegas M.D. PCP - General 06/14/[address] [place] [address] [place] [phone] documented as of this encounter
--- OUTSIDE RECORDS SUMMARY | 2022-01-24 14:08 | XMS_ITS | Encounter Summary ---
:1995 Author Organization [facility] [address] Care Team Providers Name Role Phone Jake Villegas M.D. Primary Care Provider Encounter Details Date Type Department Care Team Description 07/25/2020 Virtual Visit Department of Family Minh Siddiqui, COVID -19 Infection Medicine, [facility] [place] (Prima ry Dx) [facility] [place] in [address] [place] [address] Social History Tobacco Use Types Packs/Day Years [...] documented as of this encounter Progress Notes Minh Siddiqui M.D. - 07/25/2020 3:34 PM CDT Images from the original note were not included. PORTAL COMMUNICATION NOTE This was a portal notification to Ms. Esqueda to notify them that their PCR test for SARS-CoV-2 (the virus that causes COVID-19) has returned positive. Currently Ms. Esqueda has the following symptoms: Patient never had symptoms Ms. Esqueda has the following risk factors for severe infection: None Additional household members: ; MASS Score: 0 RESULTS Microbiology Results (last 10 days) Procedure Component Value - Date/Time SARS Coronavirus-2 RNA, V Asymptomatic [[id number]] (Abnormal) Collected: 07/24/20 1120 Lab Status: Final result Specimen: Varies from Nasopharynx Updated: 07/25/20 0438 SARS-CoV-2 Specimen Source Swab, Nasopharynx SARS CoV-2 RNA, TMA Detected Comment: SARS-CoV-2 RNA present. ----ADDITIONAL INFORMATION---- This molecular amplification test was performed using the Aptima SARS-CoV-2 assay ([employer] on the Sj[employer] System under emergency use authorization (EUA) by the U.S. Food and Drug Administration. Fact sheets for this EUA assay can be found at the following links: For Healthcare Providers: https://www.fda.gov/media/908752/download For Patients: https://www.fda.gov/media/529654/download ASSESSMENT/PLAN #1 COVID-19 disease Duration of Isolation Beginning of isolation (day 0) is: Since patient did not have symptoms day 0 is the date of First Positive COVID Result noted below: Labs Last refreshed: 07/25/2020 10:14 AM: First Positive or Reinfection COVID Result Date 07/24/2020 Current as of: 07/25/2020 10:14 AM The patient should self- isolate at home for at least 10 days from day zero. The patient may end home isolation when they meet the following criteria: ??? It has been at least 10 days from symptom onset ??? They have been afebrile at least 24 hours without the use of fever reducing medications ??? Their symptoms are improving Symptom Assessment Ms. Esqueda currently has no symptoms. Risk Assessment & Follow Up Recommendations Ms. Esqueda is at low risk for severe complications of Covid-19 and should follow up as needed with their primary care provider. While severe complications of Covid-19 can develop at any time, they can manifest suddenly between days 7 to 14 from symptom onset. Severe complications of COVID-19 can include viral pneumonia, Acute Respiratory Distress Syndrome, pulmonary embolism, myocardial infarction, myocarditis, acute kidney injury and concomitant viral and bacterial infections. Features of severe disease include ? ? Respiratory frequency > 30 breaths per minute ? ? SpO2 < 94% on room air with signs of lower respiratory tract infection (for patients with chronic hypoxemia, a decrease from baseline of >3%) ? ? Ratio of arterial partial pressure of oxygen to fraction of inspired oxygen (PaO2/FiO2) <300 mm Hg ??? Lung infiltrates covering over 50% of the lungs Symptoms of severe COVID-19 warrants evaluation in the Emergency Department and may include chest pain, fast heart rate, trouble breathing, hemoptysis, pain with breathing, and severe lightheadedness that interferes with activity. These symptoms raise concerns for complications of COVID-19 such as myocardial infarction, myocarditis, pulmonary embolism, pneumonia, acute respiratory distress syndrome and severe dehydration. Symptoms of moderate COVID-19 warrant evaluation in clinic for symptom management and for assessmentfor features of severe disease. Symptoms may include moderate shortness of breath, difficult to control cough, vomiting and diarrhea, weakness and severe fatigue. Symptoms of mild COVID-19 that can be managed at home include fever, chills, cough, fatigue, myalgias, sore throat, runny nose, headache, mild shortness of breath and mild chest pain. Vaccination Guidance If they already received the first of a two shot vaccine series, they may obtain the second dose once they end home isolation. Upcoming Appointments If any clinic appointments are scheduled in the next 20 days, the patient should contact their care teams for guidance on whether these appointments should be rescheduled. COVID Infection Flag The COVID infection flag in the Deport Chart will 20 days from the date of the Sars-CoV-2 PCR. Patients with ongoing symptoms beyond 20 days should remain in isolation and follow up with their care teams regarding the need to reschedule any appointments. If a provider assesses the patient and determines that they may end home isolation prior to the 20 days, they may resolve the COVID infection flag, at which time the patient may return to [facility] for onsite appointments. [email or web address] Quarantine of household members/close contacts [facility] continues to recommend 14 days quarantine for close contacts. Individuals who have been told by public health officials that they are eligible for a shorter quarantine of 7-10 days may choose to follow Public Health recommendations. If a close contact has been fully vaccinated, defer to public health recommendations for quarantine. Return to Work or School We have provided a general work/school excuse letter that the patient may share with a school or employer as documentation of the positive test result and initial isolation recommendations. The patientwill follow up with their primary care provider for evaluation and return to work assessment if theycontinue to have symptoms that interfere with work or school or if they do not meet criteria to end home isolation. Minh Siddiqui M.D. [place] COVID Care Team [facility] and [facility] This was a virtual visit. The patient was not seen face to face because of COVID-19. Total time spent in counselin minutes documented in this encounter Plan of Treatment Not on filedocumented as of this encounter Visit Diagnoses Diagnosis COVID-19 Infection - Primary documented in this encounter Additional Health Concerns Infection Onset Date Last Indicated Resolved Time COVID19 Pending 07/24/2020 07/24/2020 07/25/2020 4:38 AM CDT COVID19 07/24/2020 07/24/2020 08/13/2020 4:46 AM CDT documented as of this encounter Care Teams Banking Specialist Relationship Specialty Start Date End Date Jake Villegas M.D. PCP - General 06/14/[address] [place] [address] [place] [address] documented as of this encounter
--- OUTSIDE RECORDS SUMMARY | 2022-01-24 14:08 | XMS_ITS | Encounter Summary ---
:1995 Author Organization [facility] [place] [address] Care Team Providers Name Role Phone Zaynab Roberts M.D. Primary Care Provider [phone] Reason for Visit Appointment Request (Routine) - Closed Specialty Diagnoses / Procedures Referred By Contact Refer red To Contact Family Medicine Referral ID Status Reason Start Date Expiration Date Visits Requ ested Visits Authorized [id number] Closed 09/07/2017 03/06/2018 1 1 Encounter Details Date Type Department Care Team Description 09/09/2017 Nurse Only Department of Family Rabia Null, Medicine, [facility] in [facility] [address] [place] [address] [place] [address] Social History Tobacco Use Types Packs/Day [...] as of this encounter Visit Diagnoses Diagnosis Health Instruction Exam documented in this encounter Care Teams Incinerator Attendant Relationship Specialty Start Date End Date Zaynab Roberts M.D. PCP - General 10/16/16 06/13/20 [address] [place] [address] documented as of this encounter
--- OUTSIDE RECORDS SUMMARY | 2022-01-24 14:08 | XMS_ITS | Encounter Summary ---
:1995 Author Organization [facility] [place] [address] Care Team Providers Name Role Phone Jake Villegas M.D. Primary Care Provider Reason for Referral Outpatient (Routine) - Authorized Specialty Diagnoses / Procedures Referred By Contact Refer red To Contact Family Medicine Jake Villegas M.D . [facility] [address] [place] [address] Referral ID Status Reason Start Date Expiration Date Visits V isits Requested Authorized [id number] Authorized 08/06/2021 08/06/2022 1 1 Encounter Details Date Type Department Care Team Description 08/06/2021 Orders Only [facility] Shalini Villegas M.D. [address] [place] [phone] (Wo rk) Social History Tobacco [...] Name Type Priority Associated Diagnoses Order S amira Family Medicine Outpatient Referral Routine Expec kayla: office visit 08/20/2021, (clinic) Expires: 02/02/2022 documented as of this encounter Visit Diagnoses Not on filedocumented in this encounter Care Teams Business Banking Officer Relationship Specialty Start Date End Date Jake Villegas M.D. PCP - General 06/14/[address] [place] [phone] documented as of this encounter
--- OUTSIDE RECORDS SUMMARY | 2022-01-24 14:08 | XMS_ITS | Encounter Summary ---
:1995 Author Organization [facility] [place] [address] Care Team Providers Name Role Phone Zaynab Roberts M.D. Primary Care Provider [phone] Reason for Visit Reason Comments Rash Noted for two and half weeks . States rash does look different based on area of body. Recently started swimm ing. Not sure if cause. Appointment Request (Routine) - Closed Specialty Diagnoses / Procedures Referred By Contact Refer red To Contact Family Medicine Referral ID Status Reason Start Date Expiration Date Visits Requ ested Visits Authorized [id number] Closed 06/09/2017 12/06/2017 1 1 Encounter Details Date Type Department Care Team Description 06/10/2017 Office Visit Department of Family Isaiah Dunlap atitis (Primary Dx); Medicine, Zaynab [facility], in [place] [address] [address] [phone] Social History Tobacco Use Types Packs/Day Years [...] Sign Reading Time Taken Comments Blood Pressure 110/68 06/10/2017 11:38 AM TREATING MACHINE OPERATOR Pulse 101 06/10/2017 11:38 AM TREATING MACHINE OPERATOR Temperature 36.4 ??C (97.5 ??F) 06/10/2017 11:38 AM TREATING MACHINE OPERATOR Respiratory Rate 16 06/10/2017 11:38 AM TREATING MACHINE OPERATOR Oxygen Saturation 99% 06/10/2017 11:38 AM TREATING MACHINE OPERATOR Inhaled Oxygen Concentration - - Weight 77.2 kg (170 lb 1.4 oz) 06/10/2017 11:38 AM TREATING MACHINE OPERATOR Height 171 cm (5' 7.32) 06/10/2017 11:38 AM TREATING MACHINE OPERATOR Body Mass Index 26.38 06/10/2017 11:38 AM TREATING MACHINE OPERATOR documented in this encounter Progress Notes Zaynab Roberts M.D. - 06/10/2017 11:45 AM CST CHIEF COMPLAINT/ REASON FOR VISIT Rash. HISTORY OF PRESENT ILLNESS Chandrika Esqueda is a 22 y.o. female who presents to the clinic today for rash. Just over 2 weeks ago her back and abdomen started to itch with no visible skin rash. She tried putting coconut oilto treat possible dry skin with no improvement in the itching. She started to get clear bumps on herhands that became red Then she started to get clear bumps on her hands that started to get red. After she showers the bumps become raised. She recently started swimming and has been in chlorine recently. After she swims sheshowers. She is requesting a refill on her OCP and would like in a 3 month supply. The patient denies any additional questions or [...] Laterality Date ??? TONSILLECTOMY AND ADENOIDECTOMY N/A Tonsillectomy and adenoidectomy PREVENTIVE SERVICES Social History Substance Use Topics ??? Smoking status: Never Smoker ??? Smokeless tobacco: Never Used ??? Alcohol use Yes Comment: occasional VITAL SIGNS BP 110/68 (BP Location: Left arm, Patient Position: Sitting, Cuff Size: Small) Pulse 101 Temp 36.4 ??C (Temporal) Resp 16 Ht 171 cm Wt 77.2 kg LMP 06/02/2017 (Approximate) SpO2 99% BMI 26.38 kg/m?? PHYSICAL EXAMINATION General: Patient is alert and oriented times three, in no acute distress, good hygiene and is dressed appropriately. Skin: There is no rash on her back or abdomen. On bilateral lower legs there are tiny erythematous papules, somewhat excoriated, some of which are associated with hair follicles. On the dorsum of the hands are tiny salmon colored papules. On the upper arms, just proximal to the axilla, sparing the axilla but again on the upper chest are confluences of erythematous papules. ASSESSMENT / PLAN #1 Dermatitis. I suspect she is reacting to the chlorine. Prescription was given today for Triamcinolone 0.1% ointment. Symptomatic cares were recommended. #2 Contraception management. Prescription was renewed for Apri. Follow up The patient will contact the clinic with any new or worsening symptoms. This document serves as a record of services personally performed by Zaynab Sanchez MD. It was created on their behalf by Frida Espinosa, a trained medical lab technician. The creation of this record is based on the scribe's personal observations and the provider's statements to them. This document has been chalo cked and approved by the attending provider. TING MACHINE OPERATOR documented in this encounter Plan of Treatment Not on filedocumented as of this encounter Visit Diagnoses Diagnosis Dermatitis - Primary Management Contraceptive documented in this encounter Care Teams Emissions Technician Relationship Specialty Start Date End Date Zaynab Roberts M.D. PCP - General 10/16/16 06/13/[address] [address] documented as of this encounter
--- OUTSIDE RECORDS SUMMARY | 2022-01-24 14:08 | XMS_ITS | Encounter Summary ---
:1995 Author Organization [facility] [place] [address] Care Team Providers Name Role Phone Zaynab Roberts M.D. Primary Care Provider [phone] Encounter Details Date Type Department Care Team Description 05/07/2020 [facility] Only [facility] M.[facility] [address] [place] [address] (Wo rk) Social History [...] on filedocumented in this encounter Care Teams Nitrogen Operator Relationship Specialty Start Date End Date Zaynab Roberts M.D. PCP - General 10/16/16 06/13/[address] [address] documented as of this encounter
--- OUTSIDE RECORDS SUMMARY | 2022-01-24 14:08 | XMS_ITS | Encounter Summary ---
:1995 Author Organization [facility] [place] [address] Care Team Providers Name Role Phone Zaynab Roberts M.D. Primary Care Provider [phone] Encounter Details Date Type Department Care Team Description 10/06/2017 Clinical Communication [facility] in [place] [address] [address] [phone] Social History Tobacco Use Types Packs/Day Years [...] this encounter Miscellaneous Notes Telephone Encounter - Zaynab Roberts M.D. - 10/06/2017 10:51 PM CDT New prescription is sent Telephone Encounter - Kelli Neumann L.P.N. - 10/06/2017 4:37 PM CDT . Telephone Encounter - Cindy Dodson - 10/06/2017 4:02 PM CDT Oralia Esqueda, mother of Chandrika Esqueda, called and was requesting a different RX. The RX that was prescribed this morning was too expensive. Is there something else that can be prescribed that will work just as well and is cheaper? Please give her a call. documented in this encounter Plan of Treatment Not on filedocumented as of this encounter Visit Diagnoses Not on filedocumented in this encounter Care Teams Gravity Prospecting Operator Helper Relationship Specialty Start Date End Date Zaynab Roberts M.D. PCP - General 10/16/16 06/13/[address] [address] documented as of this encounter
--- OUTSIDE RECORDS SUMMARY | 2022-01-24 14:08 | XMS_ITS | Encounter Summary ---
:1995 Author Organization [facility] [place] [address] Care Team Providers Name Role Phone Zaynab Roberts M.D. Primary Care Provider [phone] Reason for Visit Reason Comments Communication Encounter Details Date Type Department Care Team Description 08/31/2017 Clinical Communication Department of [facility] Laura Oliveros [facility] in [place] [address] [place] [phone] Social History Tobacco Use Types Packs/Day Years [...] Telephone Encounter - Zaynab Roberts M.D. 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 Please enter order and call when ready to schedule. documented in this encounter Plan of Treatment Not on filedocumented as of this encounter Visit Diagnoses Not on filedocumented in this encounter Care Teams Radiation Therapy Technician Relationship Specialty Start Date End Date Zaynab Roberts M.D. PCP - General 10/16/16 06/13/[address] [phone] documented as of this encounter
--- OUTSIDE RECORDS SUMMARY | 2022-01-24 14:08 | XMS_ITS | Encounter Summary ---
:1995 Author Organization [facility] [place] [address] Care Team Providers Name Role Phone Zaynab Roberts M.D. Primary Care Provider [phone] Encounter Details Date Type Department Care Team Description 05/07/2017 Abstract Department of Family Medicine, Provider, [facility], in [address] [address] Social History Tobacco Use Types Packs/Day Years Used Date Smoking Tobacco: Never Sex Assigned at Date Recorded Female 07/27/2019 2:28 PM CDT documented as of this encounter Plan of Treatment Not on filedocumented as of this encounter Visit Diagnoses Not on filedocumented in this encounter Care Teams Auto Headlight Mechanic Relationship Specialty Start Date End Date Zaynab Roberts M.D. PCP - General 10/16/16 06/13/20 [address] [place] [address] documented as of this encounter
--- OUTSIDE RECORDS SUMMARY | 2022-01-24 14:08 | XMS_ITS | Encounter Summary ---
:1995 Author Organization [facility] Address [address] [place] [address] Care Team Providers Name Role Phone Jake Villegas M.D. Primary Care Provider Reason for Visit Reason Comments Cough Encounter Details Date Type Department Care Team Description 04/08/2021 Nurse Triage Department of [facility] Caitie Chaves R.N. Cough Medicine, [facility], [facility] [address] [facility] [place] [place] [address] [place] [address] [place] [address] [phone] (work) [phone] Social History Tobacco Use Types Packs/Day Years [...] this encounter Miscellaneous Notes Telephone Encounter - Deya Chaves R.N. - 04/08/2021 2:10 PM CST Chief Complaint / Reason for Call Patient is a 26 y.o. female calling regarding Cough. Assessment Concern: Patient has had a runny nose, stuffy nose, pressure around her eyes and nose, drainage downback of throat, cough and throat irritation. Cough is productive at times with green phlegm. Nasal discharge is also green. Denies fever, difficulty breathing or chest pain. She thinks she may have either a cold or sinus infection Present for: 3 days Home cares tried: Fluids. Calling to request: Appointment. The recommended disposition is Home Care. COVID screening not completed as patient had a 2 negative COVID home test that were authorized by the FDA under emergency use Authorization in the past 3 days.. Reason for Disposition ??? Cough with cold symptoms (e.g., runny nose, postnasal drip, throat clearing) Protocols used: COUGH - ACUTE NUYVISBVOF-FHKLY-SV Care Advice Patient/Caregiver understands and will follow care advice?: Yes, able to teach back HOME CARE: * You should be able to treat this at home. REASSURANCE AND EDUCATION - COUGH WITH COMMON COLD SYMPTOMS: * It sounds like an uncomplicated cold that we can treat at home. * Colds are very common and may make you feel uncomfortable. * Colds are caused by viruses, and no medicine or 'shot' will cure an uncomplicated cold. Colds are usually not serious. * Coughing up mucus is very important for protecting the lungs from pneumonia. * Here is some care advice that should help. COUGH MEDICINES: * OTC COUGH SYRUPS: The most common cough suppressant in OTC cough medications is dextromethorphan. Often the letters 'DM' appear in the name. * OTC COUGH DROPS: Cough drops can help a lot, especially for mild coughs. They reduce coughing by soothing your irritated throat and removing that tickle sensation in the back of the throat. Cough drops also have the advantage of portability - you can carry them with you. * HOME REMEDY - HARD CANDY: Hard candy works just as well as medicine-flavored OTC cough drops. People who have diabetes should use sugar-free candy. * HOME REMEDY - HONEY: This old home remedy has been shown to help decrease coughing at night. The adult dosage is 2 teaspoons (10 ml) at bedtime. Honey should not be given to infants under one year ofage. FOR A RUNNY NOSE - BLOW YOUR NOSE: * Nasal mucus and discharge help wash viruses and bacteria out of the nose and sinuses. * Blowing your nose helps clean out your nose. Use a handkerchief or a paper tissue. * If the skin around your nostrils gets irritated, apply a tiny amount of petroleum ointment to the nasal openings once or twice a day. NASAL WASHES FOR A STUFFY NOSE: * Introduction: Saline (salt water) nasal irrigation (nasal wash) is an effective and simple home remedy for treating stuffy nose and sinus congestion. The nose can be irrigated by pouring, spraying, or squirting salt water into the nose and then letting it run back out. * How it Helps: The salt water rinses out excess mucus and washes out any irritants (dust, allergens) that might be present. It also moistens the nasal cavity. * Methods: There are several ways to irrigate the nose. You can use a saline nasal spray bottle (available khwx-zfu-kglnedo), a rubber ear syringe, a medical syringe without the needle, or a NETI POT. NASAL DECONGESTANTS FOR A VERY STUFFY NOSE: * MOST PEOPLE DO NOT NEED TO USE THESE MEDICINES. * If your nose feels blocked, you should try using nasal washes first. * If you have a very stuffy nose, nasal decongestant medicines can shrink the swollen nasal mucosa and allow for easier breathing. If you have a very runny nose, these medicines can reduce the amount of drainage. They may be taken as pills by mouth or as a nasal spray. * Pseudoephedrine (Sudafed): Available lycq-mcr-tjotqwb in pill form. Typical adult dosage is two 30mg tablets every 6 hours. * Oxymetazoline Nasal Drops (Afrin): Available drnv-aeg-shabqyt. Clean out the nose before using. [place] each nostril once, wait one minute for absorption, and then spray a second time. * Phenylephrine Nasal Drops (Jimmy-Synephrine): Available whjv-bji-jeedpfa. Clean out the nose before using. [place] each nostril once, wait one minute for absorption, and then spray a second time. * Read the package instructions on all medicines that you take. FEVER MEDICINES: * For fevers above 101 F (38.3 C) take either acetaminophen or ibuprofen. * They are qqnk-fmj-mkhjwfi (OTC) drugs that help treat both fever and pain. [facility] * The goal of fever therapy is to bring the fever down to a comfortable level. Remember that fever medicine usually lowers fever 2 degrees F (1 - 1 1/2 degrees C). * ACETAMINOPHEN REGULAR STRENGTH TYLENOL: Take 650 mg (two 325 mg pills) by mouth every 4-6 hours asneeded. Each Regular Strength Tylenol pill has 325 mg of acetaminophen. The most you should take each day is 3,250 mg (10 pills a day). * ACETAMINOPHEN - EXTRA STRENGTH TYLENOL: Take 1,000 mg (two 500 mg pills) every 8 hours as needed. Each Extra Strength Tylenol pill has 500 mg of acetaminophen. The most you should take each day is 3,000 mg (6 pills a day). * IBUPROFEN (E.G., MOTRIN, ADVIL): Take 400 mg (two 200 mg pills) by mouth every 6 hours. The most you should take each day is 1,200 mg (six 200 mg pills), unless your doctor has told you to take more. CONTAGIOUSNESS: * The cold virus is present in your nasal secretions. * Cover your nose and mouth with a tissue when you sneeze or cough. Wash your hands frequently. * You can return to work or school after the fever is gone and you feel well enough to participate in normal activities. CALL BACK IF: * Fever lasts over 3 days * Nasal discharge lasts over 10 days * Earache or facial pain develops * You become worse. CARE ADVICE given per Cough - Acute Productive (Adult) guideline. VISITOR HOME BASE HEAD START documented in this encounter Plan of Treatment Not on filedocumented as of this encounter Visit Diagnoses Not on filedocumented in this encounter Care Teams Conservation Engineer Relationship Specialty Start Date End Date Jake Villegas M.D. PCP - General 06/14/[address] [place] [address] A[place]AS[place] Madrigal [phone] documented as of this encounter
--- OUTSIDE RECORDS SUMMARY | 2022-01-24 14:08 | XMS_ITS | Encounter Summary ---
:1995 Author Organization [facility] [place] [address] Care Team Providers Name Role Phone Zaynab Roberts M.D. Primary Care Provider [phone] Encounter Details Date Type Department Care Team Description 07/27/2019 Orders Only Department of [facility] [address] [place] [phone] (Wo rk) Social History Tobacco Use Types [...] on filedocumented in this encounter Care Teams Network Security Officer Relationship Specialty Start Date End Date Zaynab Roberts M.D. PCP - General 10/16/16 06/13/20 [address] [place] [phone] documented as of this encounter
--- OUTSIDE RECORDS SUMMARY | 2022-01-24 14:08 | XMS_ITS | Encounter Summary ---
:1995 Author Organization [facility] [place] [address] Care Team Providers Name Role Phone Zaynab Roberts M.D. Primary Care Provider [phone] Encounter Details Date Type Department Care Team Description 04/05/2018 Hospital Encounter Department of [facility] eneralized Radiology in Zaynab maya [facility] [place] M.[facility] [address] [facility] [address] [place], [place] [phone] [address] Social History Tobacco Use Types Packs/Day [...] desogestrel-ethinyl Take 1 tablet by 84 tablet 3 06/10/2017 05/31/2018 estradiol (for_APRI) mouth daily. 0.15-0.03 mg per tablet triamcinolone Apply 1 application 80 g 1 06/10/2017 (for_KENALOG) 0.1 % topically 2 (two) ointment times a day as needed for irritation or rash. documented as of this encounter Progress Notes Zaynab Roberts M.D. - 04/05/2018 6:10 PM CST Please inform Beatriz of normal ultrasound results. IAL LIBRARIAN documented in this encounter Plan of Treatment Not on filedocumented as of this encounter Procedures Procedure Name Priority Date/Time Associated Comments Diagnosis US ABDOMEN RAD - Routine 04/05/2018 8:20 Pain Generalized Results for this COMPLETE (most inpatients AM SPECIAL LIBRARIAN Abdominal procedure a re in and all the results outpatients) section. documented in this encounter Results US Abdomen Complete (04/05/2018 8:20 AM SPECIAL LIBRARIAN) Anatomical Region Laterality Modality Abdomen, Ultrasound RST LOS, Ultrasound ARZ LOS, Ultrasound FLA N/A Ultrasound LOS Specimen (Source) Anatomical Collection Method Collection Time Re ceived Time Location / / Volume Laterality 04/05/2018 8:21 AM SPECIAL LIBRARIAN Impressions 04/05/2018 8:24 AM SPECIAL LIBRARIAN IMPRESSION: Negative. Narrative 04/05/2018 8:24 AM SPECIAL LIBRARIAN EXAM: US ABDOMEN COMPLETE COMPARISON: CT 04/11/11. [...] encounter Visit Diagnoses Diagnosis Pain Generalized Abdominal documented in this encounter Care Teams Bench Shear Operator Relationship Specialty Start Date End Date Zaynab Roberts M.D. PCP - General 10/16/16 06/13/[address] [address] documented as of this encounter
--- OUTSIDE RECORDS SUMMARY | 2022-01-24 14:08 | XMS_ITS | Encounter Summary ---
:1995 Author Organization [facility] Address [address] [place] [address] Care Team Providers Name Role Phone Jake Villegas M.D. Primary Care Provider Reason for Visit Reason Comments COVID Inquiry Encounter Details Date Type Department Care Team Description 07/24/2020 Clinical Communication Central Appointment MARTHA Brown Office in [address] [address] Social History Tobacco Use Types Packs/Day Years [...] this encounter Miscellaneous Notes Telephone Encounter - Bryan Arce - 07/24/2020 8:20 AM CDT What is the purpose of the call?: Requesting Testing Only Request Testing In the past 14 days are any of the following symptoms new to you and not related to an existing health condition?: No symptoms noted In the past 14 days have you had close contact* with a person who has a LABORATORY CONFIRMED case ofCOVID-19?: Yes exposure noted. [place] patient, instruct to quarantine, testing indicated (End Screening) Testing Recommendation Endpoint Is testing recommended? : Recommended to test Plan: Endpoint recommendation: Testing indicated, advised to be swabbed for COVID-19 Only , sent to [facility] located at [address] [place] [address]. The entrance is on the north side of the building. You must call [phone] during the hours of 7am to 6 pm (M-F) or 8 am to 4 pm (Sat and Sun) for an appointment time.You can also schedule via your Patient Online Services account. Testing hours are 8 am to 12 noon every day. When you arrive at the testing site: Remain in your vehicle and check-in by calling the number listed on the signage at the testing site or provided to you at the time you schedule your testingappointment. and Please avoid using public transportation per CDC recommendation. If you do not have personal transportation please self-quarantine until a personal transportation option is available. *Reminder if sending patient for testing in [facility], route encounter to the correct testing pool. documented in this encounter Plan of Treatment Not on filedocumented as of this encounter Visit Diagnoses Not on filedocumented in this encounter Care Teams Riprap Man Relationship Specialty Start Date End Date Jake Villegas M.D. PCP - General 06/14/[address] [place] [address] ANASTASIA Rice [phone] documented as of this encounter
--- OUTSIDE RECORDS SUMMARY | 2022-01-24 14:08 | XMS_ITS | Encounter Summary ---
:1995 Author Organization [facility] [place] [address] Care Team Providers Name Role Phone Zaynab Rboerts M.D. Primary Care Provider [phone] Reason for Visit Reason Comments Earache left ear pain x 48 hours Appointment Request (Routine) - Closed Specialty Diagnoses / Procedures Referred By Contact Refer red To Contact Community Pediatric and Adolescent Medicine Referral ID Status Reason Start Date Expiration Date Visits Requ ested Visits Authorized [id number] Closed 10/05/2017 10/05/2018 1 1 Encounter Details Date Type Department Care Team Description 10/06/2017 Office Visit Department of [facility] Norma Kay tis Externa Acute Medicine, Zaynab Kulkarni [facility] (Primary Dx) Clinic, in [place]rig[place] [address] [place] [phone] Social History Tobacco Use Types Packs/Day Years [...] Sign Reading Time Taken Comments Blood Pressure 100/62 10/06/2017 7:57 AM CDT Pulse 60 10/06/2017 7:57 AM CDT Temperature 36.3 ??C (97.3 ??F) 10/06/2017 7:57 AM CDT Respiratory Rate 20 10/06/2017 7:57 AM CDT Oxygen Saturation - - Inhaled Oxygen Concentration - - Weight 76.5 kg (168 lb 10.4 oz) 10/06/2017 7:57 AM CDT Height 171 cm (5' 7.32) 10/06/2017 7:57 AM CDT Body Mass Index 26.16 10/06/2017 7:57 AM CDT documented in this encounter Patient Instructions Patient InstructionsFrZaynab Jordan M.D. - 10/06/2017 8:00 AM CDT Make up a solution of half alcohol and half white vinegar and fill up your ear canal after each timeyou swim. documented in this encounter Progress Notes Zaynab Roberts M.D. - 10/06/2017 8:00 AM CDT CHIEF COMPLAINT/ REASON FOR VISIT Left ear pain. HISTORY OF PRESENT ILLNESS Chandrika Esqueda is a 22 y.o. female who presents to the clinic today for left ear pain. She states that both of her ears have been irritated and they felt like they were draining. She kept trying to itch at it. Then over the weekend, she developed left ear pain. She has also had some soreness in her upper throat. No pain with belching or swallowing. The patient denies any additional questions or [...] use Yes Comment: occasional VITAL SIGNS Vitals: 10/06/17 0757 BP: 100/62 Pulse: 60 Temp: 36.3 ??C Resp: 20 Height: 171 cm Weight: 76.5 kg TempSrc: Temporal Body mass index is 26.16 kg/m??. PHYSICAL EXAMINATION General: Patient is alert and oriented times three, in no acute distress, good hygiene and is dressed appropriately. HEENT: Tympanic membranes are normal bilaterally. Pain with insertion of the ear speculum on the left. Subtle swelling of the left ear canal. Mild tragal tenderness. Oropharynx is without erythema or exudate. Nasal mucosa is without injection. Neck is without adenopathy. Lymph nodes: Not palpably enlarged and no nodules are palpated. Heart: Regular rate and rhythm without murmur. Lungs: Clear to auscultation. Extremities: Within normal limits. Skin: No rashes or suspicious lesions noted on exposed skin. ASSESSMENT / PLAN #1 Otitis Externa Acute Bilateral Will treat with Cortisporin otic drops four times a day for 7 days. Also recommended using a mixtureof rubbing alcohol and white vinegar after swimming. Follow up The patient will contact the clinic with any new or worsening symptoms. This document serves as a record of services personally performed by Zaynab Sanchez MD. It was created on their behalf by Hyacinth Moreno, a trained medical social consultant. The creation of this record is based on the scribe's personal observations and the provider's statements to them. This document has been ch ecked and approved by the attending provider. documented in this encounter Plan of Treatment Not on filedocumented as of this encounter Visit Diagnoses Diagnosis Otitis Externa Acute Bilateral - Primary documented in this encounter Care Teams Sheeting Puller Relationship Specialty Start Date End Date Zaynab Roberts M.D. PCP - General 10/16/16 06/13/[address] [phone] documented as of this encounter
--- OUTSIDE RECORDS SUMMARY | 2022-01-24 14:08 | XMS_ITS | Encounter Summary ---
:1995 Author Organization [facility] Address [address] [place] [address] Care Team Providers Name Role Phone Zaynab Roberts M.D. Primary Care Provider Reason for Visit Reason Comments Other itching everywhere, for past 2 weeks Encounter Details Date Type Department Care Team Description 06/05/2017 Office Visit Department of Family Nury Greene Exanth em Viral Medicine, Rohan [facility] (Primary Dx) Clinic, in [address] [address] [place], [place] [phone] [address] (Work) [phone] Social History Tobacco Use Types Packs/Day Years [...] Sign Reading Time Taken Comments Blood Pressure 114/68 06/05/2017 4:21 PM FARM MACHINE OPERATOR Pulse 68 06/05/2017 4:21 PM FARM MACHINE OPERATOR Temperature 36.5 ??C (97.7 ??F) 06/05/2017 4:21 PM FARM MACHINE OPERATOR Respiratory Rate 16 06/05/2017 4:21 PM FARM MACHINE OPERATOR Oxygen Saturation - - Inhaled Oxygen Concentration - - Weight 77.2 kg (170 lb 3.1 oz) 06/05/2017 4:21 PM FARM MACHINE OPERATOR Height - - Body Mass Index 27.03 02/25/2017 9:28 AM CDT documented in this encounter Patient Instructions Patient InstructionsNury Greene M.D. - 06/05/2017 4:15 PM CST 1. Exanthem Viral .Discussed etiology and expected prognosis. -Encouraged to eat fruits and vegetables every 4-6 hours to help with immune system. -Use benadryl as needed for itching. -Follow up if not improving or worsening. MACHINE OPERATOR documented in this encounter Progress Notes Nury Greene M.D. - 06/05/2017 4:15 PM CST [facility] [place] Chief Complaint Chief Complaint Patient presents with ??? Other itching everywhere, for past 2 weeks HPI HPI Rash/Lesion Onset: For the past 2 weeks Description: Location: All over-legs, hands and arm Color: red Character: papular Itching?: yes Pain?: no Progression of Symptoms: worsening Accompanying Signs & Symptoms: Fever: no Body aches or joint pain: no Sore throat symptoms:: no Recent cold symptoms: no History: Previous similar rash: no Precipitating factors: Exposure to similar rash: no New exposures: no Recent travel: no New Medication: no Exacerbating factors: nothing What makes it better?: Scratching Therapies Tried and outcome:Lotions The following portions of the patient's history were reviewed and updated as appropriate in the EMR:allergies on 06/05/17 REVIEW OF SYSTEMS Negative review of major organ systems apart from that noted in the HPI PHSYCIAL EXAM Temperature: 36.5 ??C Resp Rate: 16 Blood Pressure: 114/68 Weight: 77.2 kg Constitutional: She appears well-developed and well-nourished. No distress. Cardiovascular: Normal rate, regular rhythm and normal heart sounds. No murmur heard. Pulmonary/Chest: Effort normal and breath sounds normal. No respiratory distress. She has no wheezes. Skin: Rash noted. Rash is maculopapular (on her arms and back ). LABS/IMAGING No results found for this or any previous visit (from the past 24 hour(s)). ASSESSMENT AND PLAN Patient Instructions 1. Exanthem Viral -Patient education and reassurance provided. .Discussed etiology and expected prognosis. -Encouraged to eat fruits and vegetables every 4-6 hours to help with immune system. -Use benadryl as needed for itching. -Follow up if not improving or worsening of symptoms. Options for treatment and follow-up care were reviewed with the patient . Chandrika Esqueda and/or guardian engaged in the decision making process and verbalized understanding of the options discussed and agreed with the final plan. Nury Greene M.D. MACHINE OPERATOR documented in this encounter Plan of Treatment Not on filedocumented as of this encounter Visit Diagnoses Diagnosis Exanthem Viral - Primary documented in this encounter Care Teams Tube Builder Airplane Relationship Specialty Start Date End Date Zaynab Roberts M.D. PCP - General 10/16/16 06/13/[address] [phone] documented as of this encounter
--- OUTSIDE RECORDS SUMMARY | 2022-01-24 14:08 | XMS_ITS | Clinical Summary ---
:1995 Author Organization [facility] [place] [address] Care Team Providers Name Role Phone Jake Villegas M.D. Primary Care Provider Source Comments Patient records contain information from all sites at [facility]. For routine questions regarding patient records, call [phone] during business hours, M-F 8:00 AM - 5:00 PM Central Time. 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 01/04/2022 Emergency Emergency Medicine Donovan Pires, Ankit day Without P.A.-C. Foreign Body Le ft Thumb Without Damage To Nail Initial (Primar y Dx) from Last 3 Months Immunizations Name Administration Dates Next Due 4vHPV (discontinued) 04/04/2016, 12/01/2012 DTaP (Infanrix, Tripedia) 02/01/1999, 07/02/1995 HepA Pediatric/Adolescent 04/19/2007, 07/09/2006 HepB, Unspecified 1994, 1994, 1994 Hib, Unspecified 07/02/1995 IPV 02/01/1999 Influenza TIV (IM) 04/09/2012 Influenza, Injectable, Mdck, 02/01/2019 Preservative Free, Quadrivalent Influenza, Injectable, Quadrivalent 04/07/2017 Influenza, Unspecified 04/04/2016, 02/15/2015, 04/09/2012 MCV4 (Menactra) 12/01/2012, 12/10/2009 MMR 02/01/1999, 07/02/1995 PPD Test 09/07/2017 Tdap 01/04/2022, 04/04/2016, 07/09/2006, 11/12/2005 MARILU 12/10/2009, 04/28/1996 Family History Medical History Relation Name Comments MVA - Motor vehicle accident Brother 1 Castillo Depression Brother 2 Zeyad COPD Father Diabetes Father Osteoarthritis Father No Known Problems Mother Blood clot Sister Genesis Leukemia Sister Genesis Obesity Sister Genesis Prediabetes Sister Genesis Relation Name Status Comments Brother 1 Castillo Alive Brother 2 Zeyad Alive Father Alive Mother Alive Sister Genesis Alive Social History Tobacco Use Types Packs/Day Years [...] Date Recorded Female 07/27/2019 2:28 PM CDT Last Filed Vital Signs Vital Sign Reading Time Taken Comments Blood Pressure 144/90 01/04/2022 6:42 PM CDT Pulse 90 01/04/2022 6:36 PM CDT Temperature 37 ??C (98.6 ??F) 03/29/2018 2:00 PM CAPTURE MANAGER Respiratory Rate 16 03/29/2018 2:00 PM CAPTURE MANAGER Oxygen Saturation 100% 01/04/2022 6:36 PM CDT Inhaled Oxygen Concentration - - Weight 91 kg (200 lb 9.9 oz) 01/04/2022 6:44 PM CDT Height 171 cm (5' 7.32) 03/29/2018 2:00 PM CAPTURE MANAGER Body Mass Index 31.12 03/29/2018 2:00 PM CAPTURE MANAGER Plan of Treatment Health Maintenance Due Date Last Done Comments HIV Screening 1995 Hepatitis C Screening 1995 Cervical Cancer Screening 04/04/2019 04/04/2016 Depression Screening 05/04/2021 (Annual PHQ-2) COVID-19 Vaccine (4 - 06/27/2021 05/02/2021, 08/15/2020, Booster for Moderna series) 07/04/2020 Influenza Vaccine (#1) 2022 02/01/2019, 04/07/2017, 04/04/2016, Additional history exists DTaP,Tdap,and Td Vaccines 01/05/2032 01/04/2022, 04/04/2016 , (7 - Td or Tdap) 07/09/2006, Additional history exists Hepatitis B Vaccines Completed 1995, 1995, 1994 Pneumococcal vaccine (0-64 Aged Out No lo nger eligible years) based on patient 's age to complete this topic Procedures Procedure Name Priority Date/Time Associated Diagnosis Comme nts LACERATION REPAIR Routine 01/06/2022 2:43 PM Resu lts for this CDT procedure are i n the results section. from Last 3 Months Results Laceration Repair (01/06/2022 2:43 PM CDT) Narrative Donovan Pires P.A.-C. - 01/06/2022 2:4 3 PM CDT Donovan Pires P.A.-C. ? 01/06/2022 ??2:45 PM Laceration Repair Date/Time: 01/06/2022 2:43 PM Performed by: Donovan Pires P.A.-Jean Carlos Authorized by: Donovan Pires P.A.-Jean Carlos PROCEDURE DETAILS Repair type: ??Simple Limited defect [...] Donovan Pires P.A.-C. PROCEDURE/MINOR SURGICAL ORD ERABLES from Last 3 Months Insurance Payer Benefit Plan / Subscriber ID Effective Dates Phone Addre ss Type Group [employer] [place] [id number] 2021-[place] [phone] [id number] [facility] t [address] [place] [address] 2012 [address] [facility] ([address]) [place] [phone] Care Teams Garment Looper Relationship Specialty Start Date End Date Jake Villegas M.D. PCP - General 06/14/[address] [place] [address] Ave [place] [phone]
--- OUTSIDE RECORDS SUMMARY | 2022-01-24 14:08 | XMS_ITS | Encounter Summary ---
:1995 Author Organization [facility] [place] [address] Care Team Providers Name Role Phone Jake Villegas M.D. Primary Care Provider Reason for Visit Reason Comments Med Refill Encounter Details Date Type Department Care Team Description 08/25/2020 Refill Department of Family Medicine, Laura Christa Med Refill [facility], in Zaynab Madrigal M.D. [place] [address] [place] [address] [place] [address] [phone] Social History Tobacco Use Types Packs/Day Years [...] on filedocumented in this encounter Care Teams Button Breaker Relationship Specialty Start Date End Date Jake Villegas M.D. PCP - General 06/14/[address] [place], [place] [address] [place] [phone] documented as of this encounter
--- OUTSIDE RECORDS SUMMARY | 2022-01-24 14:08 | XMS_ITS | Encounter Summary ---
:1995 Author Organization [facility] [place] [address] Care Team Providers Name Role Phone Zaynab Roberts M.D. Primary Care Provider [phone] Encounter Details Date Type Department Care Team Description 04/09/2020 Patient Self-Triage [facility] Symptom Orthopaedic General, Provider Social History Tobacco Use Types Packs/Day Years [...] on filedocumented in this encounter Care Teams Load Mixer Relationship Specialty Start Date End Date Zaynab Roberts M.D. PCP - General 10/16/16 06/13/20 [address] [place] [address] documented as of this encounter
--- OUTSIDE RECORDS SUMMARY | 2022-01-24 14:09 | XMS_ITS | Encounter Summary ---
:1995 Author Organization [facility] [place] [address] Care Team Providers Name Role Phone Unavailable Primary Care Provider Unavailable Encounter Details Date Type Department Care Team Description 11/10/2014 Hospital Encounter HX NO MAPPING Zaynab Roberts M.D. [address] [place], [place] [phone] (Wo rk) Social History Tobacco Use Types Packs/Day Years Used Date Smoking Tobacco: Never Assessed Sex Assigned at Date Recorded Female 07/27/2019 2:28 PM CDT documented as of this encounter Miscellaneous Notes Miscellaneous - Conversion, Historical Provider Ser - 11/10/2014 11:59 PM CDT Coding Summary-Paper Based CODING DATE: 11/16/2014 FINAL [facility] STATUS: * Discharged to Home or Self Care PAYOR: [employer] ADMIT DX: REASON FOR VISIT DX: FINAL DX: PRINCIPAL: 462 Sore throat (viral) NOS SECONDARY: PROCEDURES DOCTOR NAME DATE NOTE: The code number assigned matches the documented diagnosis and / or procedure in the patient's chart. However, the narrative phrase printed from the coding software may appear abbreviated, or result in slightly different terminology. Coded By: TORIN FREDERICK Date Saved: 11/16/2014 06:40 pm [facility] Document Id: [id number] documented in this encounter Plan of Treatment Not on filedocumented as of this encounter Visit Diagnoses Not on filedocumented in this encounter
--- OUTSIDE RECORDS SUMMARY | 2022-01-24 14:09 | XMS_ITS | Encounter Summary ---
:1995 Author Organization [facility] [place] [address] Care Team Providers Name Role Phone Unavailable Primary Care Provider Unavailable Encounter Details Date Type Department Care Team Description 03/27/2015 Hospital Encounter HX [facility] FB INTERNMED Jaycob Sood M.D. [address] [place] [address] [phone] (Wo rk) Social History Tobacco Use Types Packs/Day Years Used Date Smoking Tobacco: Never Assessed Sex Assigned at Date Recorded Female 07/27/2019 2:28 PM CDT documented as of this encounter Last Filed Vital Signs Vital Sign Reading Time Taken Comments Blood Pressure 128/75 03/27/2015 9:56 AM BUSGIRL Pulse 72 03/27/2015 9:56 AM BUS[facility] Temperature - - Respiratory Rate - - Oxygen Saturation - - Inhaled Oxygen Concentration - - Weight 71 kg (156 lb 8.4 oz) 03/27/2015 9:56 AM [facility] Height 173 cm (5' 8.11) 03/27/2015 9:56 AM BUSGIRL Body Mass Index 23.72 03/27/2015 9:56 AM [facility] documented in this encounter Progress Notes Frankie Sood M.D. - 03/27/2015 9:49 AM CST [id number] CHIEF COMPLAINT/REASON FOR VISIT Vomiting, diarrhea. HISTORY OF PRESENT ILLNESS This is a new patient to my practice. She has seen other providers at the clinic before. She is 20 years of age. 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 She has, by modifying her diet, been able to stay largely symptom-free. In the last 3 to 4 weeks she has developed cramping in the lower quadrants of the abdomen and fecal urgency with diarrhea at least qualifying as more than 3 stools a day. Sometimes it is directly after eating. Sometimes it is not. The cramping makes her nauseous and on 1 occasion she has vomited. She does not feel this is her fructose mal absorption as she has learned to recognize the symptoms of that. First of all the stools are semi-formed and more solid whereas with her fructose malabsorption would just be typically watery diarrhea. The patient does not have any blood or mucus. She has not had any foreign travel. She has not recently taken any antibiotics. She has not change her water drinking supply and no one else at home is sick. I think there is very little likelihood of an infectious component to her diarrhea. She herself is wondering about celiac disease and, interestingly enough, the diet for fructose malabsorption is similar to the diet for celiac disease. She is not compliant on the diet however with regard to wheat products in general. MEDICATIONS See medicine list in EHR. ALLERGIES See EHR allergy list. SYSTEMS REVIEW Review of systems in all areas except as mentioned above is negative. PREVENTIVE SERVICES Per the Preventive Service component of the EMR. Handwashing done prior to patient contact. PAST MEDICAL/SURGICAL HISTORY Per the diagnosis and problem section of the EHR. VITAL SIGNS Per the nurses' documentation form for this visit. PHYSICAL EXAMINATION GENERAL: She is a healthy appearing young female, 20 years of age. ABDOMEN: Soft, scaphoid, nondistended. There is no organomegaly. No focal mass. There is tenderness in the lower quadrants in the region of the ascending and the descending colon without peritoneal signs. The bowel sounds are normal. IMPRESSION/REPORT/PLAN Her abdominal examination is reassuring as is her history. There is no evidence of Crohn disease or ulcerative colitis although these things remain distant possibilities. I suspect she has some component of malabsorption. I recommended to her that she tighten up her fructose diet, that she avoids dietary fats and that she also avoid lactose for the next week. She will try colon antispasmodic. Dicyclomine or Bentyl 1/2 hour before meals and at bedtime and will check complete laboratories today including celiac cascade and have her come back in a week and see how she is doing. She was comfortable with that approach. She did not want to proceed with colonoscopies or anything like that at the moment. Her labs today: She had a BMP, a CBC with differential, a celiac disease serology profile, hepatic function panel, sedimentation rate, and a thyroid function cascade. Will call her with test results James will also review them with her when she returns. Frankie Sood M.D./colin Electronically Signed By: FRANKIE SOOD MD On: 03/28/2015 09:11 AM Source: [facility] MHSDOLBEYNONRADSYS Document Id: [id number] IRL documented in this encounter Miscellaneous Notes Suricellshannon - Frankie Sood M.D. - 04/02/2015 8:01 AM CST Results Notification Document Contains Addenda Addendum by SHAHIDA BELLAMY LPN on 02 April 2015 13:23:29 BUSGIRL called with results From: FRANKIE SOOD MD To: STEPHANI Sood Nurse; Sent: 04/02/2015 08:01:03 BUSGIRL ! Show up: 04/02/2015 08:01:03 BUSGIRL Subject: Results Notification Actions: Notify patient of results Reminder Comments: OK and specifically celiac serologies are negative Results: Date Result Name Value Ref Range 03/27/2015 10:38 TSH, Sensitive-Higgins 2.8 mIU/L (0.3-4.2 - ) 03/27/2015 10:38 IgA-Higgins 161 mg/dL (61 - 356 - ) 03/27/2015 10:38 Celiac Dis Interp-[place] See Comment Source: [facility] POWERCHART Document Id: [id number] Electronically signed by Taryn [facility] Practitioner [id number] at 09/29/2016 6:10 AM CDT Miscellaneous - Frankie Sood M.D. - 03/27/2015 2:42 PM CST Results Notification Document Contains Addenda Addendum by SHAHIDA BELLAMY LPN on 28 March 2015 14:16:52 BUSGIRL called with results From: FRANKIE SOOD MD To: STEPHANI Sood Nurse; Sent: 03/27/2015 14:42:34 BUSGIRL ! Show up: 03/27/2015 14:42:34 BUSGIRL Subject: Results Notification Actions: Notify patient of results Reminder Comments: ok Results: Date Result Name Ind Value Ref Range 03/27/2015 10:38 Sodium Lvl 139 mmol/L (135 - 145) 03/27/2015 10:38 Potassium Lvl 3.9 mmol/L (3.6 - 5.2) 03/27/2015 10:38 Chloride 104 mmol/L (98 - 107) 03/27/2015 10:38 CO2 23 mmol/L (22 - 29) 03/27/2015 10:38 Alkaline Phosphatase (L) 45 unit/L (52 - 144) 03/27/2015 10:38 Glucose Lvl 88 mg/dL (70 - 139) 03/27/2015 10:38 Creatinine 0.8 mg/dL (0.6 - 1.1) 03/27/2015 10:38 EGFR (MDRD) >60 mL/min/1.73m2 (>=60 - ) 03/27/2015 10:38 EGFR (MDRD) >60 mL/min/1.73m2 (>=60 - ) 03/27/2015 10:38 BUN 9 mg/dL (6 - 21) 03/27/2015 10:38 Calcium Lvl 9.6 mg/dL (8.0 - 10.3) 03/27/2015 10:38 Protein Total 6.9 G/DL (6.3 - 7.9) 03/27/2015 10:38 Albumin Lvl 4.2 G/DL (3.2 - 5.2) 03/27/2015 10:38 Globulin 3 03/27/2015 10:38 AST 20 unit/L (8 - 43) 03/27/2015 10:38 ALT 19 unit/L (7 - 45) 03/27/2015 10:38 Bili Total 0.2 mg/dL (0.1 - 1.0) 03/27/2015 10:38 Bili Direct <0.20 mg/dL ( - <=0.30) Source: [facility] POWERCHART Document Id: [id number] Electronically signed by Conversion, [facility] Adult Nurse Practitioner [id number] at 09/29/2016 6:10 AM CDT Miscellaneous - Frankie Sood M.D. - 03/27/2015 1:43 PM CST Results Notification Document Contains Addenda Addendum by SHAHIDA BELLAMY LPN on 28 March 2015 14:16:25 BUSGIRL called with results From: FRANKIE SOOD MD To: STEPHANI Sood Nurse; Sent: 03/27/2015 13:43:39 BUSGIRL ! Show up: 03/27/2015 13:43:39 BUSGIRL Subject: Results Notification Actions: Notify patient of results Reminder Comments: ok Results: Date Result Name Ind Value Ref Range 03/27/2015 10:38 Hgb 12.4 g/dL (12.0 - 15.5) 03/27/2015 10:38 Hct 37.7 % (34.9 - 44.5) 03/27/2015 10:38 WBC 4.4 x10(9)/L (3.4 - 10.5) 03/27/2015 10:38 RBC 4.33 x10(12)/L (3.90 - 5.03) 03/27/2015 10:38 MCV 87.1 fL (82.0 - 98.0) 03/27/2015 10:38 RDW 12.1 % (11.9 - 15.5) 03/27/2015 10:38 Platelet 183 x10(9)/L (150 - 450) 03/27/2015 10:38 Neutro Absolute 2.41 10(9)/L (1.70 - 7.00) 03/27/2015 10:38 Lymph Absolute 1.59 x10(9)/L (0.90 - 2.90) 03/27/2015 10:38 Miller Absolute 0.31 x10(9)/L (0.30 - 0.90) 03/27/2015 10:38 Eos Absolute (L) 0.04 x10(9)/L (0.05 - 0.50) 03/27/2015 10:38 Baso Absolute 0.01 x10(9)/L (0.00 - 0.30) [facility]ern[facility] Document Id: [id number] Electronically signed by Conversion, [employer] Adult Nurse Practitioner [id number] at 09/29/2016 6:10 AM CDT Frankie Pichardo M.D. - 03/27/2015 12:37 PM CST Results Notification Document Contains Addenda Addendum by SHAHIDA BELLAMY LPN on 28 March 2015 14:16:34 [facility] called with results From: FRANKIE SOOD MD To: STEPHANI Sood Nurse; Sent: 03/27/2015 12:37:05 BUSGIRL ! Show up: 03/27/2015 12:37:05 BUSGIRL Subject: Results Notification Actions: Notify patient of results Reminder Comments: ok Results: Date Result Name Value Ref Range 03/27/2015 10:38 Sed Rate 12 mm/hr (0 - 29) Source[facility] Document Id: [id number] Electronically signed by Conversion, [facility] Adult Nurse Practitioner [id number] at 09/29/2016 6:10 AM CDT Frankie Pichardo M.D. - 03/27/2015 10:19 AM CST Ambulatory Patient Summary [address] [id number] Visit Information Name: CHANDRIKA ESQUEDA [facility] Number: [id number] Current Date: 03/27/2015 10:19:15 Physicians Attending Provider: FRANKIE SOOD MD Primary Care Provider: MARGARITA PALAFOX MD CHANDRIKA ESQUEDA has been given the following list of follow-up instructions, medication list, and patient education materials: Follow-up Instructions Your Medications Here is a list of your medications. It is important to take your medications as directed. Use a pillbox or chart to help remind you to take your medications. Please let your doctor or nurse know if you have problems taking your medications. Medication/Strength How to Take Indications/Special Instructions/Comments/Notes for Patient Medication Changes/Routing adapalene topical (Differin 0.1% topical gel) 1 david, Topical, once a day (at bedtime) desogestrel-ethinyl estradiol (Desogen 0.15 mg-0.03 mg oral tablet) 1 Tablet(s), Oral, once a day dicyclomine (Bentyl 10 mg oral capsule) 1 cap, Oral, four times a day 30 minutes before meals and atbedtime New Routed to [address] [address] Stop Taking the Following Medications: Medication list as of 03-27-15 10:19 Attention: If you have any medications at home that are not on this list, DO NOT take them until youcontact your provider for clarification. Give a copy of your medication list to your primary care provider. Update your medication list any time medications or doses are changed and carry your medication list at all times in case of emergency. Electronically Signed By: FRANKIE SOOD MD Signed On:27-MAR-2015 10:18:44 Your Allergies & Intolerances Substance Reaction Symptoms Category Comments amoxicillin rash Drug Your Problem List Problem Status Onset Comments Malabsorption Active 02/15/2011 06/02/11 fructose / per [facility] Allergic reaction to drug, not elsewhere classified Active 06/03/2011 06/03/11 amoxicillin Your Upcoming Appointments Date Time Location Provider 04/04/2015 09:15 [facility] Frankie Sood MD Attention: Contact your local Clinic if further appointment detail needed. Diet For Vomiting/Diarrhea (Child) Vomiting and diarrhea are common problems in children. Continued vomiting or diarrhea causes the body to lose water. The water contains salt and minerals (known as electrolytes). Electrolytes are important for the body to function. Children can easily lose water and become dehydrated. During vomiting and diarrhea, it is important to replace body fluids. Some children may tolerate regular food if the vomiting and diarrhea is infrequent. Other children may require a modified diet before returning to a regular diet. There is no need to follow a BRAT diet (bananas, rice, applesauce, and toast). These foods are sometimes recommended to decrease diarrhea. But they do not contain enough nutrients for a child. If your child shows signs of dehydration or has difficulty keeping fluids down, the doctor may recommend an oral rehydration solution (known as ORS). ORS replaces lost electrolytes. ORS may reduce vomiting and decrease diarrhea. Pedialyte, Rehydralyte, and Enfalyte are common brand names. They are available from grocery stores and pharmacies without a prescription. Use only prepared ORS. Do not try to make your own. Treatment ?? If desired and tolerated, your child may continue to eat regular food. ?? If unable to eat regular food, encourage your child to suck on or drink a variety of clear liquids such as water, ice cubes, or broth. Avoid high-sugar fluids. Offer small, frequent feedings. ?? If clear liquids are tolerated, gradually increase the amount. Alternate these fluids with ORS, as recommended by your doctor. ?? Once the child is able to eat, reintroduce solid foods from the list below. Recommended Foods Carbohydrates: Rice, wheat, potatoes, bread Meats: Lean meats such as turkey or chicken with skin removed Fruits and vegetables: As tolerated Yogurt: May help digestion Avoid the following: High-fat or spicy foods; they may be difficult to digest. Follow Up as advised by the doctor or our staff. Get Prompt Medical Attention if any of the following occur: ?? Fever of 100.4?F (38.0?C) oral, or 101.4?F (38.5?C) rectal or higher, or as directed by your healthcare provider ?? Vomiting worsens ?? Diarrhea that contains mucus, pus, or blood (may be black or tarry in color), or has a bad odor ?? Abdominal pain ?? Signs of dehydration, such as a dry mouth, dark urine, reduced urine output, lack of tears when crying, or sunken eyes ?? Behavioral changes, such as lethargy, decreased activity, or decreased responsiveness ?? Cant keep food or drinks down; no interest in eating or drinking ?? [id number] [facility], [address] [place] [address], [place] [address]. All rights reserved. This information is not intended as a substitute for professional medical care. Always follow your healthcare professional's instructions. Consider Using Patient Online Services Patient Online Services is a secure online and Mobile application that lets you: ?? View lab and test results ?? View portions of your medical record including clinical notes, immunizations and discharge summaries ?? Request an appointment or medication refill ?? Review your appointment schedule ?? Send secure messages to your care team Its easy to create an account if you dont have one. Go to [email or web address] and click on Create Your Account. Then, follow the directions to complete the online form. Youll be asked for your [facility] number which you can find at the top of this document. Your Goals/Additional instructions: Source: [facility] POWERCHART Document Id: [id number] IRL Miscellaneous - Frankie Sood M.D. - 03/27/2015 10:19 AM CST Ambulatory Discharge Medication List [address] [id number] Visit Information Name: CHANDRIKA ESQUEDA [facility] Number: [id number] Visit Date: 03/27/2015 10:19:14 Attending Provider: FRANKIE SOOD MD Primary Care Provider: MARGARITA PALAFOX MD CHANDRIKA ESQUEDA has been given the following list of medications: Your Medications It is important to take your medications as directed. Use a pill box or chart to help remind you to take your medications. Please let your doctor or nurse know if you have problems taking your medications. Medication/Strength How to Take Indications/Special Instructions/Comments/Notes for Patient Medication Changes/Routing adapalene topical (Differin 0.1% topical gel) 1 david, Topical, once a day (at bedtime) desogestrel-ethinyl estradiol (Desogen 0.15 mg-0.03 mg oral tablet) 1 Tablet(s), Oral, once a day dicyclomine (Bentyl 10 mg oral capsule) 1 cap, Oral, four times a day 30 minutes before meals and atbedtime New Routed to [facility] [address] [place] [address] Stop Taking the Following Medications: Medication list as of 03-27-15 10:19 Attention: If you have any medications at home that are not on this list, DO NOT take them until youcontact your provider for clarification. Give a copy of your medication list to your primary care provider. Update your medication list any time medications or doses are changed and carry your medication list at all times in case of emergency. Electronically Signed By: FRANKIE SOOD MD Signed On:27-MAR-2015 10:18:44 Additional Information: Source: [facility] POWERCHART Document Id: [id number] IRL Miscellaneous - Emelina Aleman C.MZay - 03/27/2015 9:56 AM CST Adult Self Contained Behavior Unit Teacher Intake/History Adult Self Contained Behavior Unit Teacher Intake/History Entered On: 03/27/2015 9:59 BUSGIRL Performed On: 03/27/2015 9:56 BUSGIRL by EMELINA ALEMAN [facility] Intake Chief Complaint : vomiting and diareha and sever stomach cramps. Onset of Symptoms : vomiting a week and diareha x 3 weeks Temperature Core : 36.5 DegC(Converted to: 97.7 DegF) Peripheral Pulse Rate : 72 /min Heart Rhythm : Regular Systolic Blood Pressure : 128 mmHg Diastolic Blood Pressure : 75 mmHg NIBP Mean : 93 mmHg BP Location : Right upper extremity Blood Pressure Cuff Size : Regular Height : 173 cm(Converted to: 5 ft 8 inch(es), 68 inch(es)) Actual Weight : 71 kg(Converted to: 156 lb 8 oz) Weight Source : Standing scale Dosing Weight Clinic : 71 kg Clinic BSA : 1.85 Body Mass Index : 23.72 kg/m2 EMELINA ALEMAN [facility] - 03/27/2015 9:56 BUSGIRL General Info Information Given By : Patient Languages : Malaysian Is Patient Female and 13-50 no hysterectomy : Yes Status : Patient denies Are you ? : No EMELINA ALEMAN [facility] - 03/27/2015 9:56 BUSGIRL Subjective Pain Symptoms : Yes EMELINA ALEMAN CMA - 03/27/2015 9:56 BUSGIRL Pain Scale Pain Scale Verbal 0-10 : Open EMELINA ALEMAN [facility] - 03/27/2015 9:56 BUSGIRL Pain Pain Assessment Grid Pain 1 Location : Abdomen (Comment: Lower near waist line [EMELINA ALEMAN [facility] - 03/27/2015 9:56 BUSGIRL] ) Laterality : Bilateral Intensity : 2 EMELINA ALEMAN [facility] - 03/27/2015 9:56 BUSGIRL Dependent Habits Tobacco Use/Currently Using : No Exposure to Tobacco Smoke : Other: Never Smoking Status : Never smoker Alcohol Use : Yes EMELINA ALEMAN [facility] - 03/27/2015 9:56 BUSGIRL Caffeine Use Grid Caffeine Use : Current Type : Chocolate, Soft drinks Frequency : Occasionally EMELINA ALEMAN [facility] - 03/27/2015 9:56 BUSGIRL Recreational Drug Use Grid Drug Use : None EMELINA ALEMAN [facility] - 03/27/2015 9:56 BUSGIRL Source: [employer] Document Id: [id number] IRL documented in this encounter Plan of Treatment Not on filedocumented as of this encounter Procedures Procedure Name Priority Date/Time Associated Comments Diagnosis HEPATIC FUNCTION PANEL, Routine 03/27/2015 10:38 Results for this S AM BUSGIRL procedure are i n the results section. THYROID FUNCTION Routine 03/27/2015 10:38 Results for this CASCADE, S AM BUSGIRL procedure are i n the results section. CELIAC DISEASE SEROLOGY Routine 03/27/2015 10:38 Results for this CASCADE, S AM [facility] procedure are i n the results section. AUTOMATED DIFFERENTIAL, Routine 03/27/2015 10:38 Results for this B AM [facility] procedure are i n the results section. TISSUE TRANSGLUTAMINASE Routine 03/27/2015 10:38 Results for this (TTG) AB, IGA, S AM BUSGIRL procedure a re in the results section. SEDIMENTATION RATE, B Routine 03/27/2015 10:38 Re sults for this AM BUSGIRL procedure are i n the results section. CBC WITH DIFFERENTIAL, B Routine 03/27/2015 10:38 Results for this AM [facility] procedure are i n the results section. BASIC METABOLIC PANEL, Routine 03/27/2015 10:38 R esults for this S/P AM BUSGIRL procedure are i n the results section. documented in this encounter Results (ABNORMAL) Automated Differential (03/27/2015 10:38 AM BUSGIRL) [facility] Method Time Signature Absolute 2.41 1.70 - POWERCHART Neutrophils 7.00 109L Lymphocytes 1.59 0.90 - POWERCHART 2.90 X109L Monocytes 0.31 0.30 - POWERCHART 0.90 X109L Eosinophils 0.04 (L) 0.05 - POWERCHART 0.50 X109L Absolute 0.01 0.00 - POWERCHART Basophil 0.30 X109L Specimen Anatomical Collection Method Collection Time Receive d Time (Source) Location / / Volume Laterality Blood 03/27/2015 10:38 03/27/2015 AM BUSGIRL 10:38 AM BUSGIRL Frankie Sood M.D. LAB BLOOD ADD-ON Performing Organization Address City/[facility] Code Phon e Number POWERCHART Sedimentation Rate (03/27/2015 10:38 AM BUSGIRL) Analysis Performed At Patho logist Time Signature Sedimentation 12 0 - 29 POWERCHART Rate, B MMHR Specimen (Source) Anatomical Collection Method Collection Time Re ceived Time Location / / Volume Laterality Blood 03/27/2015 10:38 AM BUSGIRL Frankie Sood M.D. LAB BLOOD ADD-ON Performing Organization Address City/[facility] Phon e Number POWERCHART CBC with Differential (03/27/2015 10:38 AM BUSGIRL) P athologist Signature Leukocytes 4.4 3.4 - 10.5 POWERCHART X109L Erythrocytes 4.33 3.90 - 5.03 POWERCHART [id number] Hemoglobin 12.4 12.0 - 15.5 POWERCHART GDL Hematocrit 37.7 34.9 - 44.5 POWERCHART MCV 87.1 82.0 - 98.0 POWERCHART FL HX RDW 12.1 11.9 - 15.5 POWERCHART Platelet Count 183 150 - 450 POWERCHART X109L Specimen (Source) Anatomical Collection Method Collection Time Re ceived Time Location / / Volume Laterality Blood 03/27/2015 10:38 AM BUSGIRL Frankie Sood M.D. LAB BLOOD ADD-ON Performing Organization Address City/[facility] Code Phon e Number POWERCHART tTG (Tissue Transglutaminase), Antibody, IgA (03/27/2015 10:38 AM BUSGIRL) Patholo gist Method Time Signature Tissue <1.2 <4.0 POWERCHART Transglutaminase Ab, (Negative) IgA, S UNITML Comment: Test Performed by: [facility] [place] [address] Log Chain Feeder: Rishi Gauthier II, M.D., Ph.D. Specimen Anatomical Collection Method Collection Time Receive d Time (Source) Location / / Volume Laterality Blood 03/27/2015 10:38 03/28/2015 7:51 AM BUSGIRL AM BUSGIRL Historical Provider LAB BLOOD ADD-ON Performing Organization Address [facility] Phon e Number POWERCHART Celiac Disease Serology [place] (03/27/2015 10:38 AM BUSGIRL) [facility] Method Time Signature HX IgA 161 61 - 356 POWERCHART MGDL Interpretation See Comment POWERCHART Comment: Negative serology. Celiac disease unlike ly. However, approximately 10% of patients with dmitriy c disease are seronegative. Also, patients who are alr kerry adhering to a gluten-free diet may be seronegative. If celiac disease is highly clinically suspected, consider HL A-DQ typing. Test Performed by: [facility] [place] [address] Log Chain Feeder: Rishi Gauthier II, M.D., Ph.D. Specimen (Source) Anatomical Collection Method Collection Time Re ceived Time Location / / Volume Laterality Blood 03/27/2015 10:38 AM BUSGIRL Frankie Sood M.D. LAB BLOOD ADD-ON Performing Organization Address [facility] Phon e Number POWERCHART (ABNORMAL) Hepatic Function Panel (03/27/2015 10:38 AM BUSGIRL) [facility] Method Time Signature Alkaline 45 (L) 52 - 144 POWERCHART Phosphatase, S UNITL Alanine 19 7 - 45 POWERCHART Amniotransferase, LD UNITL Aspartate 20 8 - 43 POWERCHART Aminotransferase UNITL (AST), S Bilirubin, Direct, S <0.20 <=0.30 POWERCHAR T MGDL Bilirubin, Total, S 0.2 0.1 - 1.0 POWERCHART MGDL Total Protein, S 6.9 6.3 - 7.9 POWERCHART GDL Albumin, S 4.2 3.2 - 5.2 POWERCHART GDL HXGlobulin 3 POWERCHART Specimen (Source) Anatomical Collection Method Collection Time Re ceived Time Location / / Volume Laterality Blood 03/27/2015 10:38 AM BUSGIRL Frankie Sood M.D. LAB BLOOD ADD-ON Performing Organization Address City/State/ZIP Code Phon e Number POWERCHART BMP (Basic Metabolic Panel) (03/27/2015 10:38 AM BUSGIRL) P athologist Signature BUN (Blood Urea 9 6 - 21 POWERCHART Nitrogen), S MGDL Chloride, S 104 98 - 107 POWERCHART MMOLL CO2 Total 23 22 - 29 POWERCHART MMOLL Creatinine 0.8 0.6 - 1.1 POWERCHART MGDL Glucose 88 70 - 139 POWERCHART MGDL Calcium, Total, 9.6 8.0 - 10.3 POWERCHART S MGDL Sodium, S 139 135 - 145 POWERCHART MMOLL Potassium, S 3.9 3.6 - 5.2 POWERCHART MMOLL HXeGFR (MDRD) >60 >=60 POWERCHART [id number] eGFR >60 >=60 POWERCHART Black/ [id number] Dominican Specimen (Source) Anatomical Collection Method Collection Time Re ceived Time Location / / Volume Laterality Blood 03/27/2015 10:38 AM BUSGIRL Frankie Sood M.D. LAB BLOOD ADD-ON Performing Organization Address City/[facility]/ZIP Code Phon e Number POWERCHART Thyroid Function [place] (03/27/2015 10:38 AM BUSGIRL) athologist Signature TSH, Sensitive 2.8 0.3 - 4.2 POWERCHART MIUL Comment: Test Performed by: [place] [address] Log Chain Feeder: Rishi Gauthier II, M.D., Ph.D. Specimen (Source) Anatomical Collection Method Collection Time Re ceived Time Location / / Volume Laterality Blood 03/27/2015 10:38 AM BUSGIRL Frnakie Sood M.D. LAB BLOOD ADD-ON Performing Organization Address City/State/ZIP Code Phon e Number POWERCHART documented in this encounter Visit Diagnoses Not on filedocumented in this encounter
--- OUTSIDE RECORDS SUMMARY | 2022-01-24 14:09 | XMS_ITS | Encounter Summary ---
:1995 Author Organization [facility] [place] [address] Care Team Providers Name Role Phone Unavailable Primary Care Provider Unavailable Encounter Details Date Type Department Care Team Description 09/05/2016 Hospital Encounter [facility]X [facility] OWOC DERM Ishan Moore M.D. [address] [facility], [address] [place], [place] [address] (Wo rk) Social History Tobacco Use Types [...] - - Height 169 cm (5' 6.54) 09/05/2016 2:44 PM CDT Body Mass Index - - documented in this encounter Medications at Time of Discharge Medication Sig Dispensed Refills Start Date End Date desogestrel-ethinyl Take 1 tablet by 0 04/15/2016 05/07/2017 estradiol (for_APRI) mouth daily. 0.15-0.03 mg per tablet documented as of this encounter Progress Notes Jane Moore M.D. - 09/05/2016 2:51 PM CDT Clinic Full Note CHIEF COMPLAINT/REASON FOR VISIT check some moles on the scalp and some on the abdomen HISTORY OF PRESENT ILLNESS She is here because she has several moles on her scalp she would like me to look at , and a mole onher left upper abdomen she has had since . She also has a mole that is darker on her right leg.She would like to do full skin check if she could. MEDICATIONS Desogen 0.15 mg-0.03 mg oral tablet, 1 tab(s), PO, Daily, 3 refills ALLERGIES amoxicillin (rash) PAST MEDICAL HISTORY Chronic Other intestinal malabsorption Historical No historical problems PROCEDURES/SURGICAL HISTORY Tonsillectomy and adenoidectomy. SOCIAL HISTORY Date Time: 09/05/2016 14:44 Tobacco: Smoking Status: Never smoker Exposure: Other: Never Alcohol: Use: No Results Found Recreational Drugs: Use: None Type: No Results Found FAMILY HISTORY Mother: Negative:;;;;;;;;;;;;;;;;;;;;;; SYSTEMS REVIEW See HPI for pertinent positives- VITAL SIGNS HT: 169 cm PHYSICAL EXAMINATION General: No acute distress Skin: Verbal consent given for photos and dermatoscope used for exam Full skin check today of the scalp and body hair, face, neck, chest, breasts, abdomen, back, buttocks, upper extremities, lower extremities, groin, and inspection and palpation of the digits and nails. Right retroauricular mole 7.5 mm x 7.5 mm no concerning dermatoscoping features Right hairline 6 x 6 mm no concerning dermatoscoping features Left retroauricularmole 7 x 7 mm no concerning dermatoscoping features Left posterior scalp 6 x 5 mm sebaceous nevus , no concerning dermatoscoping features 7 mmx 6.5 mm pigmented lesion on the left upper abdomen that is raised , no concerning dermatoscoping features Right chest- dark spot eccentrically with regression- 2.5 mm x 3mm mole prepped with alcohol, and injected with lidocaine with epinephrine. Lesion then prepped with Hibiclens, sterilely draped, and lesion was removed with a DermaBlade Drysol used for hemostasis. Vaseline and a bandaid applied. Estimated blood loss less than 1 milliliter Skin: 2 mmx 2.5 mm pigmented lesion on the right anterior thigh prepped with alcohol, and injected with lidocaine with epinephrine. Lesion then prepped with Hibiclens, sterilely draped, and lesion was removed with a DermaBlade Drysol used for hemostasis. Vaseline and a bandaid applied. Estimated blood loss less than 1 milliliter IMPRESSION/REPORT/PLAN Nevi Multiple Sunblock spf 30 every 2 hours to skin while in the sun. Yearly full skin checks recommended, soonerif you notice any pink, thick scaled lesions or changing moles. Recheck the moles on the scalp in a year Tumor Skin Uncertain Behavior Brochure given to patient for biopsy after-care. Wash daily with unscented soap, pat dry, apply vaseline and band-aid until healed. Should be notified of results within 2 weeks, or was advised to please call us If biopsy shows an atypical mole or skin cancer, then we will do a full skin check in 6 months, if benign in 1 year Ordered: Dermatopathology Consult, Wet Tissue-[place] 4339 Electronically Signed By: JANE MOORE MD On: 09/05/2016 04:00 PM Source: [employer] Document Id: [id number] documented in this encounter Miscellaneous Notes Miscellaneous - Margarita Skelton M.D. - 09/14/2016 8:30 PM CDT Addendum by HARIS GARZA LPN on September 15, 2016 14:24:35 CDT patient notified Addendum by DIVINA RIGGS on September 15, 2016 13:24:29 CDT pt called, please call back Addendum by HARIS GARZA LPN on September 15, 2016 08:15:40 CDT message left for patient to return phone call and [facility] Addendum by HARIS GARZA LPN on September 15, 2016 08:14:44 CDT From: HARIS GARZA LPN (STEPHANI Sanchez Nurse) To: CHANDRIKA ESQUEDA Sent: 09/15/2016 08:14:44 CDT Subject: FW: From: MARGARITA SKELTON MD To: STEPHANI Sanchez Nurse; Sent: 09/14/2016 20:30:18 CDT Please inform Chandrika that the skin lesions were not worrisome. Source: [facility] POWERCHART Document Id: [id number] Miscellaneous - Jane Moore M.D. - 09/05/2016 4:00 PM CDT Ambulatory Patient Summary [facility] [address] [place] [id number] Visit Information Name: CHANDRIKA ESQUEDA [facility] Number: [id number] Current Date: 09/05/2016 16:00:33 Physicians Attending Provider: JANE MOORE MD Primary Care Provider: MARGARITA SKELTON MD LILLY CHANDRIKA PACHECO has been given the following list of [...] Take Indications/Special Instructions/Comments/Notes for Patient Medication Changes/Routing desogestrel-ethinyl estradiol (Desogen 0.15 mg-0.03 mg oral tablet) 1 Tablet(s), Oral, once a day Stop Taking the Following Medications: Medication list as of 09-05-16 16:00 Attention: If you have any medications at home that are not on this list, DO NOT take them until youcontact your provider for clarification. Give a copy of your medication list to your primary care provider. Update your medication list any time medications or doses are changed and carry your medication list at all times in case of emergency. Electronically Signed By: JANE MOORE MD Signed On:05-SEP-2016 16:00:30 Your Allergies & Intolerances Substance Reaction Symptoms Category Comments amoxicillin rash Drug Your Problem List Problem Status Onset Comments Allergic reaction to drug, not elsewhere classified Active 06/03/2011 06/03/11 amoxicillin Other intestinal malabsorption Active 2010 11/01/15 does not tolerate fructose Nevi Multiple Active Your Upcoming Appointments Date Time Location Provider No Appointments found Attention: Contact your local Clinic if further appointment detail needed. Consider Using Patient Online Services Patient Online [...] if you dont have one. Go to [email or web address] and click on Create Your Account. Then, follow the directions to complete the online form. Youll be asked for your [facility] number which you can find at the top of this document. Your Goals/Additional instructions: Source: [facility] POWERCHART Document Id: [id number] Miscellaneous - Jane Moore M.D. - 09/05/2016 4:00 PM CDT Ambulatory Discharge Medication List [address] [id number] Visit Information Name: CHANDRIKA ESQUEDA [facility] Number: [id number] Current Date: 09/05/2016 16:00:32 Attending Provider: JANE MOORE MD Primary Care Provider: MARGARITA SKELTON MD CHANDRIKA ESQUEDA JUNIOR has been given the following list of medications: Your Medications It is important to take your medications as directed. Use a pill box or chart to help remind you to take your medications. Please let your doctor or nurse know if you have problems taking your medications. Medication/Strength How to Take Indications/Special Instructions/Comments/Notes for Patient Medication Changes/Routing desogestrel-ethinyl estradiol (Desogen 0.15 mg-0.03 mg oral tablet) 1 Tablet(s), Oral, once a day Stop Taking the Following Medications: Medication list as of 09-05-16 16:00 Attention: If you have any medications at home that are not on this list, DO NOT take them until youcontact your provider for clarification. Give a copy of your medication list to your primary care provider. Update your medication list any time medications or doses are changed and carry your medication list at all times in case of emergency. Electronically Signed By: JANE MOORE MD Signed On:05-SEP-2016 16:00:30 Additional Information: Source: [facility] [employer] Document Id: [id number] Miscellaneous - Hollie Álvarez L.P.N. - 09/05/2016 2:44 PM CDT Adult Urgent Care Intake/History Adult Urgent Care Intake/History Entered On: 09/05/2016 14:45 CDT Performed On: 09/05/2016 14:44 CDT by HOLLIE ÁLVAREZ LPN Intake Chief Complaint : check some moles on the scalp and some on the abdomen Height : 169 cm(Converted to: 5 ft 7 inch(es), 67 inch(es)) HOLLIE ÁLVAREZ LPN - 09/05/2016 14:44 CDT General Info Languages : Vietnamese Is Patient Female and 13-50 no hysterectomy : Yes Status : Patient denies Are you ? : No HOLLIE ÁLVAREZ LPN - 09/05/2016 14:44 CDT Subjective Pain Symptoms : No HOLLIE ÁLVAREZ LPN - 09/05/2016 14:44 CDT Dependent Habits Exposure to Tobacco Smoke : Other: Never Smoking Status : Never smoker Tobacco 2A : No Tobacco Use/Currently Using : No Tobacco Use/Last 30 Days : No Tobacco Use/Last 12 months : No HOLLIE ÁLVAREZ LPN - 09/05/2016 14:44 CDT Caffeine Use Grid Caffeine Use : Current Type : Chocolate, Soft drinks Frequency : Occasionally HOLLIE ÁLVAREZ LPN - 09/05/2016 14:44 CDT Recreational Drug Use Grid Drug Use : None HOLLIE ÁLVAREZ LPN - 09/05/2016 14:44 CDT Source: [facility] [employer] Document Id: [id number] CDT!26 documented in this encounter Plan of Treatment Not on filedocumented as of this encounter Procedures Procedure Name Priority Date/Time Associated Comments Diagnosis DERMATOPATHOLOGY CONSULT Routine 09/05/2016 4:46 Results for this PM CDT procedure are i n the results section. LAB SURG PATH,LEVEL IV Routine 09/05/2016 4:46 Re sults for this PRO AND TECH PM CDT procedure are i n the results section. documented in this encounter Results LAB SURG PATH,LEVEL IV PRO AND TECH (09/05/2016 4:46 PM CDT) [facility] Time Signature HXLvl IV Surg Performed [facility]: Test Performed by: [facility] [address] [place] [address] Specimen Anatomical Collection Method Collection Time Receive d Time (Source) Location / / Volume Laterality Tissue 09/05/2016 4:46 PM 7 1:33 CDT PM CDT Historical Provider [facility] Performing Organization Address City/State/ZIP Code Phon e Number POWERCHART PATHOLOGY DERMPATH CONSULT, WET TISSUE (09/05/2016 4:46 PM CDT) [facility] Method Time Signature HXDrm Exam [id number] POWERCHART [facility] HXDrm Exam See Comment POWERCHART [facility] Comment: RESULT: Jane Moore M.D. HXDrm Exam [facility] See Comment POWERCH ART Comment: [facility] [address] [place] [id number] HXDrm Exam [facility] See Comment POWERCH ART Comment: A. ??DermPath Consultation, Wet Tissue; right chest: B. ??DermPath Consultation, Wet Tissue; right thigh: HXDrm Exam [facility] See Comment POWERCH ART Comment: A. ??Received in formalin labeled with t he patient's name and and lab eled as right chest is a 0.8 x 0.6 x 0.1 cm skin shave biopsy. ?? There is a 0.3 x 0.2 cm henry-brown pigmented lesion with irregula r borders eccentrically located on the skin surface. ??Eccentric ally located within this lesion is a minute brown pigmented lesio n. ??The specimen is bisected longitudinally and submitted entirely in cassette A1. B. ??Received in formalin labeled with t he patient's name and and labeled as right thigh is a 1.0 x 0.6 x 0.1 cm skin shave biopsy. ??There is a 0.2 x 0.2 cm brown pigmented lesion eccentrically located on the skin surface, abutting the periphery. ??The specimen is bisected lo ngitudinally and submitted entirely in cassette B1. HXDrm Exam [facility] See Comment POWERCH ART Comment: A. ??DermPath Consultation, Wet Tissue; right chest: ??Lentiginous junctional nevus B. ??DermPath Consultation, Wet Tissue; right thigh: ??Lentiginous compound nevus HXDrm Exam [facility] See Comment POWERCH ART Comment: RESULT: 09/10/2016 14:24 ??Interpreted by : Veronica Rios M.D Report electronically signed by Veronica Rios M.D. Transcribed by: [email or web address] 09/10/2016 14:04:16 Test Performed by: [address] [address] Specimen (Source) Anatomical Collection Method Collection Time Re ceived Time Location / / Volume Laterality Tissue 09/05/2016 4:46 PM CDT Jane Moore M.D. LAB PATH DERM ORDERABLES Performing Organization Address City/State/[facility] Code Phon e Number POWERCHART documented in this encounter Visit Diagnoses Not on filedocumented in this encounter
--- OUTSIDE RECORDS SUMMARY | 2022-01-24 14:09 | XMS_ITS | Encounter Summary ---
:1995 Author Organization [facility] [place] [address] Care Team Providers Name Role Phone Unavailable Primary Care Provider Unavailable Encounter Details Date Type Department Care Team Description 09/17/2015 Hospital Encounter HX [facility] FBEX XPRESSCAR Nuria Gastelum, P.A.-C. [address], [address] [place], [place] [address] (Wo rk) Social History Tobacco Use Types Packs/Day Years Used Date Smoking Tobacco: Never Assessed Sex Assigned at Date Recorded Female 07/27/2019 2:28 PM CDT documented as of this encounter Last Filed Vital Signs Vital Sign Reading Time Taken Comments Blood Pressure 110/52 09/17/2015 1:19 PM CDT Pulse 80 09/17/2015 1:19 PM CDT Temperature - - Respiratory Rate 16 09/17/2015 1:19 PM CDT Oxygen Saturation - - Inhaled Oxygen Concentration - - Weight - - Height 173 cm (5' 8.11) 09/17/2015 1:11 PM CDT Body Mass Index - - documented in this encounter Progress Notes Broderick Gastelum, P.A.-C. - 09/17/2015 1:05 PM CDT [id number] PATIENT NAME: Chandrika Esqueda CHIEF COMPLAINT/REASON FOR VISIT Insect bite HISTORY OF PRESENT ILLNESS Chandrika is a 20-year-old female who presents with a possible insect bite in the last 24 hours. 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 Her cousin does have ringworm, but she denies recent close contact. There are two areas, 1 over the thyroid cartilage and the other on the right shoulder. Both areas are red, warm, itching, and getting larger. She denies ilxt-nof-yqcspyc treatments. Otherwise, she is asymptomatic. CURRENT MEDICATIONS Reviewed, see EMR for details ALLERGIES Amoxicillin - see EMR for reaction history MEDICAL HISTORY Reviewed, see chronic conditions in EMR for details SURGICAL HISTORY Reviewed, see procedure history EMR for details SOCIAL HISTORY Reviewed, denies tobacco use FAMILY HISTORY Not pertinent to today's visit SYSTEMS REVIEW Positives above, otherwise comprehensive review of systems is negative VITAL SIGNS Temperature 36.8 degrees Celsius. Heart rate 80 beats per minute. Respiratory rate 16 breaths per minute. Blood pressure 110/52. SpO2 98% on room air. PHYSICAL EXAMINATION CONSTITUTIONAL: Patient is alert and oriented x3. No acute distress. Sitting comfortably at bedside.Average body habitus. HEENT: Atraumatic. Conjunctivae clear. PERRL. EMOI. Outer ears without lesions or other abnormality. SKIN: There are to symmetrical there is of skin irritation, 1 over the thyroid cartilage and the second over the right shoulder near the AC joint. The areas are erythematous, warm, and inflamed. No drainage, tenderness, or fluctuance. This does not appear to be ringworm. IMPRESSION/REPORT/PLAN DIAGNOSIS: Bug bite The 2 areas should significantly improve with topical Benadryl cream or 1% hydrocortisone [id number]-vjciyhl as directed. I also recommend she take an oral antihistamine such as Zyrtec until complete resolution or until itching stops. Follow up with primary care provider in the next 1-2 his symptoms persist unchanged or worsen. Martin Martinez/shefali Electronically Signed By: BRODERICK GASTELUM PA-C On: 09/17/2015 04:17 PM Source: [facility] MHSDOLBEYNONRADSYS Document Id: [id number] documented in this encounter Miscellaneous Notes Miscellaneous - Broderick Gastelum P.A.-C. - 09/17/2015 1:41 PM CDT Ambulatory Patient Summary [facility] [address] [place] [id number] Visit Information Name: CHANDRIKA ESQUEDA [facility] Number: [id number] Current Date: 09/17/2015 13:41:22 Physicians Attending Provider: BRODERICK GASTELUM PA-C Primary Care Provider: MARGARITA PALAFOX MD CHANDRIKA [...] day 30 minutes before meals and atbedtime Stop Taking the Following Medications: Medication list as of 09-17-15 13:41 Attention: If you have any medications at home that are not on this list, DO NOT take them until youcontact your provider for clarification. Give a copy of your medication list to your primary care provider. Update your medication list any time medications or doses are changed and carry your medication list at all times in case of emergency. Electronically Signed By: BRODERICK GASTELUM PA-C Signed On:17-SEP-2015 13:40:58 Your Allergies & Intolerances Substance Reaction Symptoms Category Comments amoxicillin rash Drug Your Problem List Problem Status Onset Comments Allergic reaction to drug, not elsewhere classified Active 06/03/2011 06/03/11 amoxicillin Other intestinal malabsorption Active Your Upcoming Appointments Date Time Location [...] if you dont have one. Go to [email or web address] and click on Create Your Account. Then, follow the directions to complete the online form. Youll be asked for your [facility] number which you can find at the top of this document. Your Goals/Additional instructions: Source: [facility] POWERCHART Document Id: [id number] Miscellaneous - Broderick Gastelum P.A.-C. - 09/17/2015 1:41 PM CDT Ambulatory Discharge Medication List [address] [id number] Visit Information Name: CHANDRIKA ESQUEDA [facility] Number: [id number] Visit Date: 09/17/2015 13:41:21 Attending Provider: BRODERICK GASTELUM PA-C Primary Care Provider: MARGARITA PALAFOX MD CHANDRIKA ESQUEDAS has been given the following list of [...] day 30 minutes before meals and atbedtime Stop Taking the Following Medications: Medication list as of 09-17-15 13:41 Attention: If you have any medications at home that are not on this list, DO NOT take them until youcontact your provider for clarification. Give a copy of your medication list to your primary care provider. Update your medication list any time medications or doses are changed and carry your medication list at all times in case of emergency. Electronically Signed By: BRODERICK GASTELUM PA-C Signed On:17-SEP-2015 13:40:58 Additional Information: Source: [facility] POWERCHART Document Id: [id number] Miscellaneous - Mag Richmond C.M.A. - 09/17/2015 1:19 PM CDT Adult Healthcare Liaison Intake/History Adult Healthcare Liaison Intake/History Entered On: 09/17/2015 13:25 CDT Performed On: 09/17/2015 13:19 CDT by MAG RICHMOND [facility] Intake Chief Complaint : red, itchy bump on neck and on right shoulder Onset of Symptoms : last night Temperature Core : 36.8 DegC(Converted to: 98.2 DegF) Peripheral Pulse Rate : 80 /min Respiratory Rate : 16 /min Heart Rhythm : Regular Systolic Blood Pressure : 110 mmHg Diastolic Blood Pressure : 52 mmHg NIBP Mean : 71 mmHg BP Location : Left upper extremity Blood Pressure Cuff Size : Regular SpO2 : 98 % Oxygen Therapy : Room air MGA RICHMOND [facility] - 09/17/2015 13:19 CDT General Info Information Given By : Patient Languages : Urdu Is Patient Female and 13-50 no hysterectomy : Yes Status : Patient denies Are you ? : No MAG RICHMOND [facility] - 09/17/2015 13:19 CDT Subjective Pain Symptoms : No MAG RICHMOND CMA 09/17/2015 13:19 CDT Dependent Habits Exposure to Tobacco Smoke : Other: Never Smoking Status : Never smoker Tobacco 2A : No Tobacco Use/Currently Using : No Tobacco Use/Last 30 Days : No Tobacco Use/Last 12 months : No MAG RICHMOND [employer] - 09/17/2015 13:19 CDT Caffeine Use Grid Caffeine Use : Current Type : Chocolate, Soft drinks Frequency : Occasionally MAG RICHMOND CMA 09/17/2015 13:19 CDT Recreational Drug Use Grid Drug Use : None MAG RICHMOND CMA 09/17/2015 13:19 CDT Source: [facility] [employer] Document Id: [id number] CDT!38 documented in this encounter Plan of Treatment Not on filedocumented as of this encounter Visit Diagnoses Not on filedocumented in this encounter
--- OUTSIDE RECORDS SUMMARY | 2022-01-24 14:09 | XMS_ITS | Encounter Summary ---
:1995 Author Organization [facility] [place] [address] Care Team Providers Name Role Phone Unavailable Primary Care Provider Unavailable Encounter Details Date Type Department Care Team Description 11/01/2015 Hospital Encounter HX [facility] Natalie Bedolla APRN, C.N.P. [address] [place] [phone] (Wo rk) Social History Tobacco Use Types Packs/Day Years Used Date Smoking Tobacco: Never Assessed Sex Assigned at Date Recorded Female 07/27/2019 2:28 PM CDT documented as of this encounter Last Filed Vital Signs Vital Sign Reading Time Taken Comments Blood Pressure 110/62 11/01/2015 9:36 AM CDT Pulse 68 11/01/2015 9:36 AM CDT Temperature - - Respiratory Rate 16 11/01/2015 9:36 AM CDT Oxygen Saturation - - Inhaled Oxygen Concentration - - Weight 73 kg (160 lb 15 oz) 11/01/2015 9:36 AM CDT Height 173 cm (5' 8.11) 11/01/2015 9:36 AM CDT Body Mass Index 24.39 11/01/2015 9:36 AM CDT documented in this encounter Progress Notes Pricila Bedolla APRN, C.N.P. - 11/01/2015 10:02 AM CDT Clinic Full Note CHIEF COMPLAINT/REASON FOR VISIT C[place] from [place] on [place] Lots of mosiquto bites. Became very swollen from these. Has had headache , dizzy, stomach pains. Diarrhea started today and dry heaves. Appetite poor. Very tired. Slight cough. HISTORY OF PRESENT ILLNESS Chandrika sates she has had nausea and diarrhea for the past 24 hours. No vomiting or fever. Appetitie is decreased. She is taking fluids. No one else at home is ill. MEDICATIONS Desogen 0.15 mg-0.03 mg oral tablet, 1 tab(s), PO, Daily, 11 refills ALLERGIES amoxicillin (rash) PAST MEDICAL HISTORY Chronic Other intestinal malabsorption Historical No historical problems PROCEDURES/SURGICAL HISTORY Tonsillectomy and adenoidectomy. SOCIAL HISTORY Date Time: 11/01/2015 09:36 Tobacco: Smoking Status: Never smoker Exposure: Other: Never Alcohol: Use: No Results Found Recreational Drugs: Use: None Type: No Results Found FAMILY HISTORY Mother: Negative:;;;;;;;;;;;;;;;;;;;;;; HEALTH MAINTENANCE HPV #2 declined. SYSTEMS REVIEW Positive for that mentioned in the History of Present Illness and Past Medical History. All other systems were reviewed and were negative. VITAL SIGNS T: 36.8 ??C (Core) HR: 68 RR: 16 BP: 110 / 62 SpO2: 100% HT: 173 cm WT: 73 kg BMI: 24.39 PHYSICAL EXAMINATION GENERAL: Well-developed, well-nourished, in no acute distress. SKIN: Warm and dry. HEENT: TMs clear. Throat clear. NECK: Supple. No lymphadenopathy or thyromegaly. HEART: Regular rate and rhythm. S1, S2. No murmur. LUNGS: Clear to auscultation. No wheezes or rales. ABDOMEN: Soft nontender, no distention, no focal mass, no hepatosplenomegaly. Bowel sounds present. EXTREMITIES: Warm, dry. No peripheral edema. IMPRESSION/REPORT/PLAN Gastroenteritis Viral Or Presumed Viral Reassurance, symptoms should continue to improve over the next 24 hours. Can use Pepto Bismol as needed for nausea and diarrhea. [place] diet as tolerated, continue adequate fluid intake. Recheck if symptoms do not improve. Ordered: OV Est Pt Level 3 - 24048 - 15 min Electronically Signed By: PRICILA BEDOLLA APRN, CNP On: 11/01/2015 10:04 AM Source: [facility] POWERCHART Document Id: [id number] documented in this encounter Nursing Notes Pricila Bedolla APRN, C.NFaustino. - 11/01/2015 9:57 AM CDT Ambulatory Patient Education The following Patient Education Materials have been given to the patient: Patient Education Materials: Ambulatory GASTROENTERITIS, Viral [6y-Adult] Ambulatory Viral Gastroenteritis (6Yr-Adult) Gastroenteritis is another name for the stomach flu. It is most often caused by a virus that affectsthe stomach and intestinal tract. Symptoms include stomach cramping and fever, vomiting and/or diarrhea, and can last from 2 to 7 days. The danger from repeated vomiting or diarrhea is dehydration. This is the loss of too much water andminerals from the body. When this occurs, body fluids must be replaced. Antibiotics are not effective for this illness, but simple home treatment will be helpful. Home Care ?? If symptoms are severe, rest at home for the next 24 hours. ?? Avoid tobacco, caffeine, and alcohol use, which can worsen symptoms. ?? Acetaminophen (Tylenol) or ibuprofen (Motrin, Advil) may be used for fever or pain unless anothermedication was prescribed. NOTE: If you have chronic liver or kidney disease or ever had a stomach ulcer or GI bleeding, talk with your doctor before using these medicines. Aspirin should never be usedin anyone under 18 years of age who is ill with a fever. It may cause severe liver damage. ?? If medicines for diarrhea or vomiting were prescribed, be sure they are taken only as directed. ?? If vomiting, drink small amounts of clear fluids (such as water, sports drinks, clear sodas) at frequent intervals to prevent dehydration. Start with 1 to 2 tablespoons every 10 minutes. Once vomiting stops, follow these guidelines: During The First 12 To 24 Hours follow the diet below: ?? Beverages: Sport drinks like Gatorade, soft drinks without caffeine; janett torey, mineral water (plain or flavored), decaffeinated tea and coffee. ?? Soups: Clear broth, consomm?? and bouillon ?? Desserts: Plain gelatin (Jell-O), Popsicles and fruit juice bars. During The Next 24 Hours you may add the following to the above: ?? Hot cereal, plain toast, bread, rolls, crackers ?? Plain noodles, rice, mashed potatoes, chicken noodle or rice soup ?? Unsweetened canned fruit (avoid pineapple), bananas ?? Limit fat intake to less than 15 grams per day by avoiding margarine, butter, oils, mayonnaise, sauces, gravies, fried foods, peanut butter, meat, poultry, and fish. ?? Limit fiber; avoid raw or cooked vegetables, fresh fruits (except bananas), and bran cereals. ?? Limit caffeine and chocolate. Do not use spices or seasonings except salt. During The Next 24 Hours The patient can gradually resume a normal diet as symptoms lessen. Preventing Spread ?? Hand washing with soap and water is the best way to prevent the spread of viruses. Caregivers should wash their hands before and after touching the sick person. ?? The sick person, as well as everyone in the family, should wash their hands after using the toilet and before meals. ?? Clean the toilet after each use. ?? People with diarrhea should not prepare food for others. If you are preparing your own foods, wash your hands before and after. Follow Up with your doctor as advised. Call your doctor if you are not improving over the next 2 to 3 days. Ifa stool (diarrhea) sample was taken, you may call in 2 days (or as directed) for the results. parGetPrompt Medical Attention if any of the following occur: ?? Increasing abdominal pain ?? Continued vomiting (unable to keep liquids down) ?? Frequent diarrhea (more than 5 times a day) ?? Blood in vomit or stool (black or red color) ?? Dark urine, reduced urine output, or extreme thirst ?? Weakness, dizziness, fainting ?? Drowsiness, confusion, stiff neck, or seizure ?? Fever of 100.4??F (38??C) oral or higher, not better with fever medication ?? New rash ?? [id number] Issa Nixon, [address] [place] [address], [place] [address]. All rights reserved. This information is not intended as a substitute for professional medical care. Always follow your healthcare professional's instructions. This document has images extracted. Please consider using [employer] for all your patient education needs. Source: [facility] POWERCHART Document Id: [id number] documented in this encounter Miscellaneous Notes Miscellaneous - Pricila Bedolla APRN, C.N.P. - 11/01/2015 9:57 AM CDT Ambulatory Patient Summary [address] [id number] Visit Information Name: CHANDRIKA ESQUEDA [facility] Number: [id number] Current Date: 11/01/2015 09:57:52 Physicians Attending Provider: PRICILA BEDOLLA APRN, CNP Primary Care Provider: MARGARITA PALAFOX MD CHANDRIKA [...] a day Stop Taking the Following Medications: adapalene topical (Differin 0.1% topical gel) dicyclomine (Bentyl 10 mg oral capsule) Medication list as of 11-01-15 09:57 Attention: If you have any medications at home that are not on this list, DO NOT take them until youcontact your provider for clarification. Give a copy of your medication list to your primary care provider. Update your medication list any time medications or doses are changed and carry your medication list at all times in case of emergency. 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 Viral Gastroenteritis (6Yr-Adult) Gastroenteritis is another name for the stomach flu. It is most often caused by a virus that affectsthe stomach and intestinal tract. Symptoms include stomach cramping and fever, vomiting and/or diarrhea, and can last from 2 to 7 days. The danger from repeated vomiting or diarrhea is dehydration. This is the loss of too much water andminerals from the body. When this occurs, body fluids must be replaced. Antibiotics are not effective for this illness, but simple home treatment will be helpful. Home Care ?? If symptoms are severe, rest at home for the next 24 hours. ?? Avoid tobacco, caffeine, and alcohol use, which can worsen symptoms. ?? Acetaminophen (Tylenol) or ibuprofen (Motrin, Advil) may be used for fever or pain unless anothermedication was prescribed. NOTE: If you have chronic liver or kidney disease or ever had a stomach ulcer or GI bleeding, talk with your doctor before using these medicines. Aspirin should never be usedin anyone under 18 years of age who is ill with a fever. It may cause severe liver damage. ?? If medicines for diarrhea or vomiting were prescribed, be sure they are taken only as directed. ?? If vomiting, drink small amounts of clear fluids (such as water, sports drinks, clear sodas) at frequent intervals to prevent dehydration. Start with 1 to 2 tablespoons every 10 minutes. Once vomiting stops, follow these guidelines: During The First 12 To 24 Hours follow the diet below: ?? Beverages: Sport drinks like Gatorade, soft drinks without caffeine; janett torey, mineral water (plain or flavored), decaffeinated tea and coffee. ?? Soups: Clear broth, consomm? and bouillon ?? Desserts: Plain gelatin (Jell-O), Popsicles and fruit juice bars. During The Next 24 Hours you may add the following to the above: ?? Hot cereal, plain toast, bread, rolls, crackers ?? Plain noodles, rice, mashed potatoes, chicken noodle or rice soup ?? Unsweetened canned fruit (avoid pineapple), bananas ?? Limit fat intake to less than 15 grams per day by avoiding margarine, butter, oils, mayonnaise, sauces, gravies, fried foods, peanut butter, meat, poultry, and fish. ?? Limit fiber; avoid raw or cooked vegetables, fresh fruits (except bananas), and bran cereals. ?? Limit caffeine and chocolate. Do not use spices or seasonings except salt. During The Next 24 Hours The patient can gradually resume a normal diet as symptoms lessen. Preventing Spread ?? Hand washing with soap and water is the best way to prevent the spread of viruses. Caregivers should wash their hands before and after touching the sick person. ?? The sick person, as well as everyone in the family, should wash their hands after using the toilet and before meals. ?? Clean the toilet after each use. ?? People with diarrhea should not prepare food for others. If you are preparing your own foods, wash your hands before and after. Follow Up with your doctor as advised. Call your doctor if you are not improving over the next 2 to 3 days. Ifa stool (diarrhea) sample was taken, you may call in 2 days (or as directed) for the results. Get Prompt Medical Attention if any of the following occur: ?? Increasing abdominal pain ?? Continued vomiting (unable to keep liquids down) ?? Frequent diarrhea (more than 5 times a day) ?? Blood in vomit or stool (black or red color) ?? Dark urine, reduced urine output, or extreme thirst ?? Weakness, dizziness, fainting ?? Drowsiness, confusion, stiff neck, or seizure ?? Fever of 100.4?F (38?C) oral or higher, not better with fever medication ?? New rash ?? [id number] Issa Nixon, [address] [place] [address], [place] [address]. All rights reserved. This information is not [...] if you dont have one. Go to [email or web address] and click on Create Your Account. Then, follow the directions to complete the online form. Youll be asked for your [facility] number which you can find at the top of this document. Your Goals/Additional instructions: This document has images extracted. Please consider using [employer] for all your patient education needs. Source: [facility] POWERCHART Document Id: [id number] Miscellaneous - Pricila Bedolla APRN, C.N.P. - 11/01/2015 9:57 AM CDT Ambulatory Discharge Medication List [address] [id number] Visit Information Name: CHANDRIKA ESQUEDAS [facility] Number: [id number] Visit Date: 11/01/2015 09:57:52 Attending Provider: PRICILA BEDOLLA APRN [facility] Primary Care Provider: MARGARITA PALAFOX MD LILLYCHANDRIKA JUNIOR has been given the following list [...] a day Stop Taking the Following Medications: adapalene topical (Differin 0.1% topical gel) dicyclomine (Bentyl 10 mg oral capsule) Medication list as of 11-01-15 09:57 Attention: If you have any medications at home that are not on this list, DO NOT take them until youcontact your provider for clarification. Give a copy of your medication list to your primary care provider. Update your medication list any time medications or doses are changed and carry your medication list at all times in case of emergency. Electronically Signed By: PRICILA BEDOLLA APRN WIRE TAPER Signed On:01-NOV-2015 09:57:35 Additional Information: Source: [facility] POWERCHART Document Id: [id number] Miscellaneous - Shalom Kamara L.P.N. - 11/01/2015 9:36 AM CDT Adult Director Supply Intake/History Adult Director Supply Intake/History Entered On: 11/01/2015 9:41 CDT Performed On: 11/01/2015 9:36 CDT by SHALOM KAMARA LPN Intake Chief Complaint : Came home from [place] on Thursday from [facility]. Lots of mosiquto bites. Became very swollen from these. Has had headache , dizzy, stomach pains. Diarrhea started today and dry heaves. Appetite poor. Very tired. Slight cough. Temperature Core : 36.8 DegC(Converted to: 98.2 DegF) Peripheral Pulse Rate : 68 /min Respiratory Rate : 16 /min Heart Rhythm : Regular Systolic Blood Pressure : 110 mmHg Diastolic Blood Pressure : 62 mmHg NIBP Mean : 78 mmHg BP Location : Left upper extremity Blood Pressure Cuff Size : Regular SpO2 : 100 % Oxygen Therapy : Room air Height : 173 cm(Converted to: 5 ft 8 inch(es), 68 inch(es)) Actual Weight : 73 kg(Converted to: 160 lb 15 oz) Weight Source : Standing scale Dosing Weight Clinic : 73 kg Clinic BSA : 1.87 Body Mass Index : 24.39 kg/m2 SHALOM KAMARA LPN - 11/01/2015 9:36 CDT General Info Information Given By : Patient Preferred Communication Mode : Verbal Languages : Greenlandic Is Patient Female and 13-50 no hysterectomy : Yes Status : Patient denies Are you ? : No SHALOM KAMARA LPN - 11/01/2015 9:36 CDT Subjective Pain Symptoms : Yes SHALOM KAMARA [facility] - 11/01/2015 9:36 CDT Pain Scale Pain Scale Verbal 0-10 : Open SHALOM KAMARA [facility] - 11/01/2015 9:36 CDT Pain Pain Assessment Grid Pain 1 Pain 2 Location : Abdomen Head Intensity : 3 5 Time Pattern : Intermittent Constant SHALOM KAMARA [facility] - 11/01/2015 9:36 CDT SHALOM KAMARA [facility] - 11/01/2015 9:36 CDT Dependent Habits Exposure to Tobacco Smoke : Other: Never Smoking Status : Never smoker Tobacco 2A : No Tobacco Use/Currently Using : No Tobacco Use/Last 30 Days : No Tobacco Use/Last 12 months : No SHALOM KAMARA [facility] - 11/01/2015 9:36 CDT Caffeine Use Grid Caffeine Use : Current Type : Chocolate, Soft drinks Frequency : Occasionally SHALOM KAMARA [facility] - 11/01/2015 9:36 CDT Recreational Drug Use Grid Drug Use : None SHALOM KAMARA [facility] - 11/01/2015 9:36 CDT [facility] Document Id: [id number] CDT!56 documented in this encounter Plan of Treatment Not on filedocumented as of this encounter Visit Diagnoses Not on filedocumented in this encounter
--- OUTSIDE RECORDS SUMMARY | 2022-01-24 14:09 | XMS_ITS | Encounter Summary ---
:1995 Author Organization [facility] Address [address] [place] [address] Care Team Providers Name Role Phone Margarita Roberts M.D. Primary Care Provider [phone] Encounter Details Date Type Department Care Team Description 11/11/2016 Hospital Encounter HX [facility] Margarita Eli M.D. [address] [place], [place] [phone] (Wo rk) Social History Tobacco Use Types Packs/Day Years Used Date Smoking Tobacco: Never Sex Assigned at Date Recorded Female 07/27/2019 2:28 PM CDT documented as of this encounter Last Filed Vital Signs Vital Sign Reading Time Taken Comments Blood Pressure 112/62 11/11/2016 4:58 PM CDT Pulse 72 11/11/2016 4:58 PM CDT Temperature - - Respiratory Rate 20 11/11/2016 4:58 PM CDT Oxygen Saturation - - Inhaled Oxygen Concentration - - Weight 75.8 kg (167 lb 1.7 oz) 11/11/2016 4:58 PM CDT Height 169 cm (5' 6.54) 11/11/2016 4:58 PM CDT Body Mass Index 26.54 11/11/2016 4:58 PM CDT documented in this encounter Medications at Time of Discharge Medication Sig Dispensed Refills Start Date End Date desogestrel-ethinyl Take 1 tablet by 0 04/15/2016 05/07/2017 estradiol (for_APRI) mouth daily. 0.15-0.03 mg per tablet documented as of this encounter Progress Notes Margarita Skelton M.D. - 11/11/2016 8:12 AM CDT Clinic Full Note CHIEF COMPLAINT/REASON FOR VISIT right ear pain x 2 days HISTORY OF PRESENT ILLNESS Beatriz noticed the right ear to be slightly painful and bothering for the past several days . It became more painful and now today she has muffled hearing and feels like there is a foreign body that is getting larger. She cannot lay on her right side due to pain in the side of the head and ear.She has not had fevers but is beginning to feel somewhat unwell. She can't tell however if she is just gettingworked up her situation. MEDICATIONS Desogen 0.15 mg-0.03 mg oral tablet, 1 tab(s), PO, Daily, 3 refills ALLERGIES amoxicillin (rash) PAST MEDICAL HISTORY Chronic Nevi Multiple Other intestinal malabsorption Historical No historical problems PROCEDURES/SURGICAL HISTORY Tonsillectomy and adenoidectomy. SOCIAL HISTORY Date Time: 11/11/2016 16:58 Tobacco: Smoking Status: Never smoker Exposure: Other: Never Alcohol: Use: No Results Found Recreational Drugs: Use: None Type: No Results Found FAMILY HISTORY Mother: Negative:;;;;;;;;;;;;;;;;; SYSTEMS REVIEW She otherwise has no concerns. VITAL SIGNS T: 36.5 ??C (Core) HR: 72 RR: 20 BP: 112 / 62 HT: 169 cm WT: 75.80 kg BMI: 26.54 PHYSICAL EXAMINATION GENERAL: Patient is alert and oriented, well groomed and appropriately dressed. HEENT: There is no visible abnormality to the right outer ear but there is tragal tenderness and tenderness to insertion of the ear speculum. No drainag is seen and there is no swelling of the ear canal. There is a small amount of wax in the canal which is not obstructive. NECK: Without adenopathy, thyromegaly or carotid bruits. HEART: Regular rate and rhythm without murmur. LUNGS: Clear without wheeze crackle or rhonchus. IMPRESSION/REPORT/PLAN Otitis External R Prescription is given for cortisporin otic solution 2 drops 4 times daily for 10 days. Other symptomatic measures are recommended. If this becomes a recurrent problem will discuss instilling a drying agent after swimming or showers. Ordered: OV Est Pt Level 3 - 10495 - 15 min Orders: neomycin/polymyxin B/hydrocortisone otic, 2 drop(s), Ear(Right), 4xDay, x 10 day(s), # 10 mL, 0 Refill(s), Acute, Pharmacy: [facility], [place], [place] Electronically Signed By: MARGARITA SKELTON MD On: 11/12/2016 08:15 AM Source: [facility] POWERCHART Document Id: [id number] documented in this encounter Miscellaneous Notes Miscellaneous - Haris Neumann, L.P.N. - 11/11/2016 4:58 PM CDT Adult [facility] Intake/History Adult [facility] Intake/History Entered On: 11/11/2016 17:00 CDT Performed On: 11/11/2016 16:58 CDT by HARIS NEUMANN LPN Intake Chief Complaint : right ear pain x 2 days LMP Date : 10/2016 Temperature Core : 36.5 DegC(Converted to: 97.7 DegF) Peripheral Pulse Rate : 72 /min Respiratory Rate : 20 /min Systolic Blood Pressure : 112 mmHg Diastolic Blood Pressure : 62 mmHg NIBP Mean : 79 mmHg BP Location : Left upper extremity Blood Pressure Cuff Size : Regular Height : 169 cm(Converted to: 5 ft 7 inch(es), 67 inch(es)) Actual Weight : 75.80 kg(Converted to: 167 lb 2 oz) Weight Source : Standing scale Dosing Weight Clinic : 75.8 kg Prosthetic device on during patient weight : No Clinic BSA : 1.89 Body Mass Index : 26.54 kg/m2 HARIS NEUMANN LPN - 11/11/2016 16:58 CDT General Info Information Given By : Patient Preferred Communication Mode : Verbal Languages : [place] Is Patient Female and 13-50 no hysterectomy : Yes Status : Patient denies Are you ? : No HARIS NEUMANN LPN - 11/11/2016 16:58 CDT Subjective Pain Symptoms : Yes HARIS NEUMANN LPN - 11/11/2016 16:58 CDT Pain Scale Pain Scale Verbal 0-10 : Open HARIS NEUMANN [facility] - 11/11/2016 16:58 CDT Pain Pain Assessment Grid Pain 1 Location : Ear Laterality : Right Intensity : 6 HARIS NEUMANN [facility] - 11/11/2016 16:58 CDT Dependent Habits Exposure to Tobacco Smoke : Other: Never Smoking Status : Never smoker Tobacco 2A : No Tobacco Use/Currently Using : No Tobacco Use/Last 30 Days : No Tobacco Use/Last 12 months : No HARIS NEUMANN [facility] - 11/11/2016 16:58 CDT Caffeine Use Grid Caffeine Use : Current Type : Chocolate, Soft drinks Frequency : Occasionally HARIS NEUMANN [facility] - 11/11/2016 16:58 CDT Recreational Drug Use Grid Drug Use : None HARIS NEUMANN [facility] - 11/11/2016 16:58 CDT Source: [employer] Document Id: [id number] CDT!51 documented in this encounter Plan of Treatment Not on filedocumented as of this encounter Visit Diagnoses Not on filedocumented in this encounter Care Teams Wood Casket Assembler Relationship Specialty Start Date End Date Margarita Roberts M.D. PCP - General 10/16/16 06/13/[address], [place] [phone] documented as of this encounter
--- OUTSIDE RECORDS SUMMARY | 2022-01-24 14:09 | XMS_ITS | Encounter Summary ---
:1995 Author Organization [facility] [place] [address] Care Team Providers Name Role Phone Unavailable Primary Care Provider Unavailable Encounter Details Date Type Department Care Team Description 02/18/2016 Hospital Encounter HX [facility] Brandin Menezes P.A.-C. [address] [place] [phone] (Wo rk) Social History Tobacco Use Types Packs/Day Years Used Date Smoking Tobacco: Never Assessed Sex Assigned at Date Recorded Female 07/27/2019 2:28 PM CDT documented as of this encounter Last Filed Vital Signs Vital Sign Reading Time Taken Comments Blood Pressure 98/60 02/18/2016 2:06 PM CDT Pulse 80 02/18/2016 2:06 PM CDT Temperature - - Respiratory Rate 16 02/18/2016 2:06 PM CDT Oxygen Saturation - - Inhaled Oxygen Concentration - - Weight 74 kg (163 lb 2.3 oz) 02/18/2016 2:06 PM CDT Height 173 cm (5' 8.11) 02/18/2016 2:06 PM CDT Body Mass Index 24.73 02/18/2016 2:06 PM CDT documented in this encounter Progress Notes Rupert Menezes P.A.-C. - 02/18/2016 1:45 PM CDT [id number] CHIEF COMPLAINT/REASON FOR VISIT Sinus congestion and ear pain. HISTORY OF PRESENT ILLNESS Chandrika is a very pleasant 20-year-old female who has had some sinus congestion for the last week.She has also had some ear pain associated with this. VITAL SIGNS Noted in the EMR. PHYSICAL EXAMINATION GENERAL: She appears in no acute distress. ENT: TMs no erythema. Throat no erythema. She has tenderness to percussion over her maxillary sinuses bilaterally. HEART: Regular rate and rhythm. No murmurs. LUNGS: Clear to auscultation. IMPRESSION/REPORT/PLAN Sinusitis. She is allergic to amoxicillin. I am going to treat with cefdinir 1 tablet 2 times daily for 10 days. I want her to push fluids. Use a nasal saline spray as a decongestant and if her symptoms worsen or not completely resolved within the next 7 to 10 days, she will let us know, otherwise follow up as needed. Rupert Menezes PA-C/colin Electronically Signed By: RUPERT MENEZES PA-C On: 02/20/2016 08:56 AM Source: [facility] MHSDOLBEYNONRADSYS Document Id: [id number] documented in this encounter Miscellaneous Notes Miscellaneous - Shreya Post R.N. - 02/21/2016 10:22 AM CDT refill request - Reclipsen Document Contains Addenda Addendum by MARGARITA PALAFOX MD on February 21, 2016 17:14:29 CDT From: MARGARITA PALAFOX MD Sent: 02/21/2016 17:14:29 CDT Subject: RE:refill request - Reclipsen Approved Order:desogestrel-ethinyl estradiol (Desogen 0.15 mg-0.03 mg oral tablet) 1 tab(s) PO Daily Due for Annual Visit with Primary Care Provider. Qty: 28 tab(s) Refills: 0 Substitutions Allowed Route To Pharmacy - [facility], [place], [place] Signed by MARGARITA PALAFOX MD 02/21/2016 17:14:24 From: SHREYA POST RN To: MARGARITA PALAFOX MD; Sent: 02/21/2016 10:22:20 CDT Subject: refill request - Reclipsen On hold pending signature Order:desogestrel-ethinyl estradiol (Desogen 0.15 mg-0.03 mg oral tablet) 1 tab(s) PO Daily Due for Annual Visit with Primary Care Provider. Qty: 28 tab(s) Refills: 0 Substitutions Allowed Route To Pharmacy - [facility] [place] Caller is: ( ) Patient ( ) Mother ( ) Father ( ) Spouse ( ) Daughter ( ) Son ( x ) Pharmacy ( ) Other: Provider: Laura Pharmacy: [facility] Name of Medications Needing Refill: Reclipsen Last Refill Date: 12/12/15 (84 tabs) Additional Information: Due for Annual Physical; Last Med check for this was 05/09/14 Last / Future Appointment: 02/17/16 (acute visit with Rupert) Disposition: ( x ) Send to Pharmacy ( ) Call to Pharmacy ( ) Patient will orange picker Script ( ) Mail Rxto Patient Source: [facility] POWERCHART Document Id: [id number] Electronically signed by Taryn [facility] Making Machine Operator [id number] at 09/28/2016 10:28 AM CDT Miscellaneous - Rupert Menezes PJoshuaATyrone. - 02/18/2016 2:28 PM CDT Ambulatory Patient Summary [place] [id number] [facility] [place] [id number] Visit Information Name: CHANDRIKA ESQUEDA [facility] Number: [id number] Current Date: 02/18/2016 14:28:40 Physicians Attending Provider: RUPERT MENEZES PA-C Primary Care Provider: MARGARITA PALAFOX MD [...] Take Indications/Special Instructions/Comments/Notes for Patient Medication Changes/Routing cefdinir (Omnicef 300 mg oral capsule) 1 cap, Oral, two times a day x 10 day(s) New Routed to [address] [address] desogestrel-ethinyl estradiol (Desogen 0.15 mg-0.03 mg oral tablet) 1 Tablet(s), Oral, once a day Stop Taking the Following Medications: Medication list as of 02-18-16 14:28 Attention: If you have any medications at home that are not on this list, DO NOT take them until youcontact your provider for clarification. Give a copy of your medication list to your primary care provider. Update your medication list any time medications or doses are changed and carry your medication list at all times in case of emergency. Electronically Signed By: RUPERT MENEZES PA-C Signed On:18-FEB-2016 14:28:35 Your Allergies & Intolerances Substance Reaction Symptoms [...] you dont have one. Go to [email or web address] and click on Create Your Account. Then, follow the directions to complete the online form. Youll be asked for your [facility] number which you can find at the top of this document. Your Goals/Additional instructions: Source: [facility] POWERCHART Document Id: [id number] Miscellaneous - Rupert Menezes P.A.-C. - 02/18/2016 2:28 PM CDT Ambulatory Discharge Medication List [address] [place], [place] [id number] Visit Information Name: LILLY CHANDRIKA PACHECO [facility] Number: [id number] Current Date: 02/18/2016 14:28:40 Attending Provider: RUPERT MENEZES PA-C Primary Care Provider: MARGARITA PALAFOX MD LILLYALEJANDRINACHANDRIKACORNELL PACHECO has been given the following list of medications: Your Medications It is important to take your medications as directed. Use a pill box or chart to help remind you to take your medications. Please let your doctor or nurse know if you have problems taking your medications. Medication/Strength How to Take Indications/Special Instructions/Comments/Notes for Patient Medication Changes/Routing cefdinir (Omnicef 300 mg oral capsule) 1 cap, Oral, two times a day x 10 day(s) New Routed to [facility] [address] [place], [place] [id number] desogestrel-ethinyl estradiol (Desogen 0.15 mg-0.03 mg oral tablet) 1 Tablet(s), Oral, once a day Stop Taking the Following Medications: Medication list as of 02-18-16 14:28 Attention: If you have any medications at home that are not on this list, DO NOT take them until youcontact your provider for clarification. Give a copy of your medication list to your primary care provider. Update your medication list any time medications or doses are changed and carry your medication list at all times in case of emergency. Electronically Signed By: RUPERT MENEZES PA-C Signed On:18-FEB-2016 14:28:35 Additional Information: Source: [facility] POWERCHART Document Id: [id number] Miscellaneous - Irma Duran L.P.N. 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 Entered On: 02/18/2016 14:09 CDT Performed On: 02/18/2016 14:06 CDT by IRMA DURAN LPN Intake Chief Complaint : sinus issue, ear pain Temperature Core : 36.6 DegC(Converted to: 97.9 DegF) Peripheral Pulse Rate : 80 /min Respiratory Rate : 16 /min Systolic Blood Pressure : 98 mmHg Diastolic Blood Pressure : 60 mmHg NIBP Mean : 73 mmHg BP Location : Right upper extremity Blood Pressure Cuff Size : Large Height : 173 cm(Converted to: 5 ft 8 inch(es), 68 inch(es)) Actual Weight : 74 kg(Converted to: 163 lb 2 oz) Weight Source : Standing scale Dosing Weight Clinic : 74 kg Clinic BSA : 1.89 Body Mass Index : 24.73 kg/m2 IRMA DURAN LPN - 02/18/2016 14:06 CDT General Info Information Given By : Patient Languages : Liberian Is Patient Female and 13-50 no hysterectomy : Yes Status : Patient denies Are you ? : No IRMA DURAN LPN - 02/18/2016 14:06 CDT Subjective Pain Symptoms : Yes IRMA DURAN LPN - 02/18/2016 14:06 CDT Pain Scale Pain Scale Verbal 0-10 : Open IRMA DURAN LPN - 02/18/2016 14:06 CDT Pain Pain Assessment Grid Pain 1 Location : Ear IRMA DURAN LPN - 02/18/2016 14:06 CDT Dependent Habits Exposure to Tobacco Smoke : Other: Never Smoking Status : Never smoker Tobacco 2A : No Tobacco Use/Currently Using : No Tobacco Use/Last 30 Days : No Tobacco Use/Last 12 months : No IRMA DURAN LPN - 02/18/2016 14:06 CDT Caffeine Use Grid Caffeine Use : Current Type : Chocolate, Soft drinks Frequency : Occasionally IRMA DURAN LPN - 02/18/2016 14:06 CDT Recreational Drug Use Grid Drug Use : None IRMA DURAN LPN - 02/18/2016 14:06 CDT Source: [facility] [employer] Document Id: [id number] CDT!46 documented in this encounter Plan of Treatment Not on filedocumented as of this encounter Visit Diagnoses Not on filedocumented in this encounter
--- OUTSIDE RECORDS SUMMARY | 2022-01-24 14:09 | XMS_ITS | Encounter Summary ---
:1995 Author Organization [facility] [place] [address] Care Team Providers Name Role Phone Unavailable Primary Care Provider Unavailable Encounter Details Date Type Department Care Team Description 04/04/2016 Hospital Encounter HX NO MAPPING Zaynab Roberts M.D. 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 However, the narrative phrase printed from the coding software may appear abbreviated, or result in slightly different terminology. Coded By: HERMAN HALL Date Saved: 04/16/2016 10:13 am Source: [employer] Document Id: [id number] documented in this encounter Plan of Treatment Not on filedocumented as of this encounter Visit Diagnoses Not on filedocumented in this encounter
--- OUTSIDE RECORDS SUMMARY | 2022-01-24 14:09 | XMS_ITS | Encounter Summary ---
:1995 Author Organization [facility] [place] [address] Care Team Providers Name Role Phone Unavailable Primary Care Provider Unavailable Encounter Details Date Type Department Care Team Description 02/15/2015 Hospital Encounter HX [facility] Margarita Barr i, M.D. [address] [place] [phone] (Wo rk) Social History Tobacco Use Types Packs/Day Years Used Date Smoking Tobacco: Never Assessed Sex Assigned at Date Recorded Female 07/27/2019 2:28 PM CDT documented as of this encounter Last Filed Vital Signs Vital Sign Reading Time Taken Comments Blood Pressure 92/62 02/15/2015 2:25 PM CDT Pulse 80 02/15/2015 2:25 PM CDT Temperature - - Respiratory Rate 16 02/15/2015 2:25 PM CDT Oxygen Saturation - - Inhaled Oxygen Concentration - - Weight 72 kg (158 lb 11.7 oz) 02/15/2015 2:25 PM CDT Height 173 cm (5' 8.11) 02/15/2015 2:25 PM CDT Body Mass Index 24.06 02/15/2015 2:25 PM CDT documented in this encounter Progress Notes Margarita Skelton M.D. - 02/15/2015 2:11 PM CDT [id number] CHIEF COMPLAINT/ REASON FOR VISIT Lump behind right ear. HISTORY OF PRESENT ILLNESS Chandrika is a 19 year old female who presents to the clinic today for lump behind right ear. In thelast couple days the lump has gotten larger and her mother believes that it may be a cyst. She believes that this has come and gone, but has never been a lump. It has previously just gotten hard in this area. Her mother also does believe that she got a couple insect bites. The patient denies any additional questions or concerns at this time. MEDICATIONS Post-visit Medication Reconciliation Reviewed and are as outlined in the EMR dated 02/15/2015. Adapalene gel 0.1% 1 david daily (prescribed today). ALLERGIES Amoxicillin. SYSTEMS REVIEW Please see HPI for pertinent positives, otherwise rest of ROS negative. PAST MEDICAL/SURGICAL HISTORY 1. Malabsorption. 2. Dysmenorrhea. 3. Tonsillectomy and adenoidectomy. PREVENTIVE SERVICES Tobacco use: none. VITAL SIGNS HEIGHT: 173 cm. WEIGHT: 72 kg. BMI: 24.06 kg/m2. TEMP: 37.0 Deg C. PULSE: 80 /min. RESP: 16 /min. SYSTOLIC: 92 mmHg. DIASTOLIC: 62 mmHg. PHYSICAL EXAMINATION GENERAL: Patient is alert and oriented times three, in no acute distress, good hygiene and is dressed appropriately. ENT: Tympanic membranes are normal bilaterally. Oropharynx is without erythema or exudate. Nasal mucosa is without injection. Neck is without adenopathy. There is a soft tissue nodule in the subcutaneous tissues, just inferior to the right ear lobe and just superior to the angle of the mandible. Approximately 1 cm in diameter. There is mild acne lesions on the right face, including 1 small papule immediately caudal to the nodule. LYMPH NODES: Not palpably enlarged and no nodules are palpated. HEART: Regular rate and rhythm without murmur. LUNGS: Clear to auscultation. IMPRESSION/REPORT/PLAN 1. Isolated enlarged lymph node: I assured her that this is nothing to worry about and it should resolve on its own. 2. Acne: I did represcribe Differin gel. I discussed the she should wash her face twice a day with antibacterial soap and apply Benzoyl peroxide in the morning and the Differin gel at night. We did discuss the possible use of an oral antibiotic, but this could cause a potential risk for by in terfering with her control. 3. Healthcare maintenance: Influenza vaccination was administered today. 4. Follow up: The patient will contact the clinic with any new or worsening symptoms. This document serves as a record of services personally performed by Margarita Sanchez MD. It was created on their behalf by Hyacinth Moreno, a trained medical receptionist. The creation of this record is based on the scribe's personal observations and the provider's statements to them. This document has been ch ecked and approved by the attending provider. Margarita Goodwin M.D./ Electronically Signed By: MARGARITA SKELTON MD On: 02/16/2015 10:59 PM Source: [facility] MHSDOLBEYNONRADSYS Document Id: [id number] documented in this encounter Miscellaneous Notes Miscellaneous - Irma Duran, L.P.N. 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 bite??? Temperature Core : 37.0 DegC(Converted to: 98.6 DegF) Peripheral Pulse Rate : 80 /min Respiratory Rate : 16 /min Systolic Blood Pressure : 92 mmHg Diastolic Blood Pressure : 62 mmHg NIBP Mean : 72 mmHg BP Location : Left upper extremity Blood Pressure Cuff Size : Regular Height : 173 cm(Converted to: 5 ft 8 inch(es), 68 inch(es)) Actual Weight : 72 kg(Converted to: 158 lb 12 oz) Weight Source : Standing scale Dosing Weight Clinic : 72 kg Clinic BSA : 1.86 Body Mass Index : 24.06 kg/m2 IRMA DURAN LPN - 02/15/2015 14:25 CDT General Info Information Given By : Patient Languages : Russian Is Patient Female and 13-50 no hysterectomy : Yes Status : Patient denies Are you ? : No IRMA DURAN LPN - 02/15/2015 14:25 CDT Subjective Pain Symptoms : Yes IRMA DURAN LPN - 02/15/2015 14:25 CDT Pain Scale Pain Scale Verbal 0-10 : Open IRMA DURAN [facility] - 02/15/2015 14:25 CDT Pain Pain Assessment Grid Pain 1 Location : Other: bump behind R ear IRMA DURAN LPN - 02/15/2015 14:25 CDT Dependent Habits Tobacco Use/Currently Using : No Exposure to Tobacco Smoke : Other: Never Smoking Status : Never smoker IRMA DURAN LPN - 02/15/2015 14:25 CDT Caffeine Use Grid Caffeine Use : Current Type : Chocolate, Soft drinks Frequency : Occasionally IRMA DURAN LPN - 02/15/2015 14:25 CDT Recreational Drug Use Grid Drug Use : None IRMA DURAN [facility] 02/15/2015 14:25 CDT [facility] Document Id: [id number] CDT!43 documented in this encounter Plan of Treatment Not on filedocumented as of this encounter Visit Diagnoses Not on filedocumented in this encounter
--- OUTSIDE RECORDS SUMMARY | 2022-01-24 14:09 | XMS_ITS | Encounter Summary ---
:1995 Author Organization [facility] [place] [address] Care Team Providers Name Role Phone Unavailable Primary Care Provider Unavailable Encounter Details Date Type Department Care Team Description 04/04/2016 Hospital Encounter HX NO MAPPING Zaynab Roberts M.D. [address] [place], [place] [phone] (Wo rk) Social History Tobacco Use Types Packs/Day Years Used Date Smoking Tobacco: Never Assessed Sex Assigned at Date Recorded Female 07/27/2019 2:28 PM CDT documented as of this encounter Plan of Treatment Not on filedocumented as of this encounter Visit Diagnoses Not on filedocumented in this encounter
--- OUTSIDE RECORDS SUMMARY | 2022-01-24 14:09 | XMS_ITS | Encounter Summary ---
:1995 Author Organization [facility] [place] [address] Care Team Providers Name Role Phone Unavailable Primary Care Provider Unavailable Encounter Details Date Type Department Care Team Description 04/04/2016 Hospital Encounter HX [facility] Laura-Margarita Brooke M.D. [address] [place], [place] [phone] (Wo rk) Social History Tobacco Use Types Packs/Day Years Used Date Smoking Tobacco: Never Assessed Sex Assigned at Date Recorded Female 07/27/2019 2:28 PM CDT documented as of this encounter Last Filed Vital Signs Vital Sign Reading Time Taken Comments Blood Pressure 106/56 04/04/2016 1:12 PM [facility] ARCHITECT Pulse 84 04/04/2016 1:12 PM [facility] ARCHITECT Temperature - - Respiratory Rate 16 04/04/2016 1:12 PM [facility] ARCHITECT Oxygen Saturation - - Inhaled Oxygen Concentration - - Weight 74.9 kg (165 lb 0.2 oz) 04/04/2016 1:12 PM [facility] ARCHITECT Height 169 cm (5' 6.54) 04/04/2016 1:12 PM [facility] ARCHITECT Body Mass Index 26.21 04/04/2016 1:12 PM [facility] ARCHITECT documented in this encounter Miscellaneous Notes Miscellaneous - Margarita Skelton M.D. - 04/10/2016 5:28 PM [facility] ARCHITECT Custom Result Letter April 10, 2016 CHANDRIKA ESQUEDA [id number] [facility] [id number] Dear CHANDRIKA ESQUEDA, Your pap is normal. Result Name Current Result [facility]A [employer] Cytology. 04/04/2016 Chlamydia by Nucleic Acid Amplification 04/04/2016 Sincerely, MARGARITA TRUJILLO [address] [place] [address] Electronic Signature Electronically Signed By: MARGARITA SKELTON MD On: April 10, 2016 This document has images extracted. Source: [facility] [employer] Document Id: [id number] Electronically signed by Taryn [facility] [employer] Conservationist [id number] at 09/28/2016 6:53 AM CDT Miscellaneous - Kelli Neumann, L.P.N. - 04/07/2016 11:49 AM CST PHQ-9 PHQ-9 Entered On: 04/07/2016 11:49 [facility] ARCHITECT Performed On: 04/07/2016 11:49 [facility] ARCHITECT by KELLI NEUMANN LPN PHQ-9 Little interest or pleasure in doing things : Not at all Feeling down, depressed, or hopeless : Not at all Trouble falling or staying asleep, or sleeping too much : Not at all Feeling tired or having little energy : Not at all Poor appetite or overeating : Not at all Feeling bad about yourself or that you are a failure : Not at all Trouble concentrating on things : Not at all Moving or speaking slowly; restless or fidgety : Not at all Thoughts that you would be better off /hurting self : Not at all PHQ-9 Calculated Score : 0 KELLI NEUMANN LPN - 04/07/2016 11:49 [facility] ARCHITECT Source: [facility] [employer] Document Id: [id number] SAAS ARCHITECT!12 ARCHITECT Suricellshannon - Margarita Skelton M.D. - 04/05/2016 1:10 PM SAAS ARCHITECT Ambulatory Discharge Medication List [address] [id number] Visit Information Name: LILLY CHANDRIKA PACHECO [facility] Number: [id number] Current Date: 04/05/2016 13:10:53 Attending Provider: MARGARITA SKELTON MD Primary Care Provider: MARGARITA SKELTON MD CHANDRIKA ESQUEDA has been given the [...] tablet) 1 Tablet(s), Oral, once a day Due for Annual Visit with Primary Care Provider. Routed to [address] [address] Stop Taking the Following Medications: Medication list as of 04-05-16 13:10 Attention: If you have any medications at home that are not on this list, DO NOT take them until youcontact your provider for clarification. Give a copy of your medication list to your primary care provider. Update your medication list any time medications or doses are changed and carry your medication list at all times in case of emergency. Electronically Signed By: MARGARITA SKELTON MD Signed On:05-APR-2016 13:10:51 Additional Information: Source: [facility] [employer] Document Id: [id number] ARCHITECT Miscellaneous - Margarita Skelton M.D. - 04/05/2016 1:10 PM [facility] ARCHITECT Ambulatory Patient Summary [address] [id number] Visit Information Name: CHANDRIKA ESQUEDA JUNIOR [facility] Number: [id number] Current Date: 04/05/2016 13:10:53 Physicians Attending Provider: MARGARITA SKELTON MD Primary Care Provider: MARGARITA SKELTON MD [...] tablet) 1 Tablet(s), Oral, once a day Due for Annual Visit with Primary Care Provider. [facility] [address] Stop Taking the Following Medications: Medication list as of 04-05-16 13:10 Attention: If you have any medications at home that are not on this list, DO NOT take them until youcontact your provider for clarification. Give a copy of your medication list to your primary care provider. Update your medication list any time medications or doses are changed and carry your medication list at all times in case of emergency. Electronically Signed By: MARGARITA SKELTON MD Signed On:05-APR-2016 13:10:51 Your Allergies & Intolerances Substance Reaction Symptoms [...] if you dont have one. Go to [email or web address] and click on Create Your Account. Then, follow the directions to complete the online form. Youll be asked for your [facility] number which you can find at the top of this document. Your Goals/Additional instructions: Source: [facility] [employer] Document Id: [id number] ARCHITECT Miscellaneous - Hortensia Schmitz L.PJoshuaN. - 04/04/2016 1:12 PM CST Adult Hand Violin Maker Intake/History Adult Hand Violin Maker Intake/History Entered On: 04/04/2016 13:15 [facility] ARCHITECT Performed On: 04/04/2016 13:12 [facility] ARCHITECT by HORTENSIA SCHMITZ LPN Intake Chief Complaint : physical LMP Date : 03/11/2016 Temperature Core : 36.6 DegC(Converted to: 97.9 DegF) Peripheral Pulse Rate : 84 /min Respiratory Rate : 16 /min Systolic Blood Pressure : 106 mmHg Diastolic Blood Pressure : 56 mmHg NIBP Mean : 73 mmHg Height : 169 cm(Converted to: 5 ft 7 inch(es), 67 inch(es)) Actual Weight : 74.85 kg(Converted to: 165 lb 0 oz) Weight Source : Standing scale Dosing Weight Clinic : 74.85 kg Clinic BSA : 1.87 Body Mass Index : 26.21 kg/m2 HORTENSIA SCHMITZ LPN - 04/04/2016 13:12 SAAS ARCHITECT General Info Information Given By : Patient Preferred Communication Mode : Verbal, Written Languages : Haitian Is Patient Female and 13-50 no hysterectomy : Yes Status : Patient denies Are you ? : No HORTENSIA SCHMITZ LPN - 04/04/2016 13:12 [facility] ARCHITECT Subjective Pain Symptoms : No HORTENSIA SCHMITZ LPN - 04/04/2016 13:12 SAAS ARCHITECT Dependent Habits Exposure to Tobacco Smoke : Other: Never Smoking Status : Never smoker Tobacco 2A : No Tobacco Use/Currently Using : No Tobacco Use/Last 30 Days : No Tobacco Use/Last 12 months : No HORTENSIA SCHMITZ LPN - 04/04/2016 13:12 [facility]AS ARCHITECT Caffeine Use Grid Caffeine Use : Current Type : Chocolate, Soft drinks Frequency : Occasionally HORTENSIA SCHMITZ LPN - 04/04/2016 13:12 SAAS ARCHITECT Recreational Drug Use Grid Drug Use : None HORTENSIA SCHMITZ LPN - 04/04/2016 13:12 SAAS ARCHITECT Source: [facility] [employer] Document Id: [id number] SAAS ARCHITECT!40 ARCHITECT documented in this encounter Plan of Treatment Not on filedocumented as of this encounter Procedures Procedure Name Priority Date/Time Associated Comments Diagnosis CHLAMYDIA TRACHOMATIS Routine 04/04/2016 1:58 PM Results for this AMPLIFIED RNA [facility] ARCHITECT procedure are in the results section. PATHOLOGY [facility]IC Routine 04/04/2016 12:00 Results fo r this CYTOLOGY AM [facility] ARCHITECT procedure are i n the results section. documented in this encounter Results Chlamydia Trachomatis Amplified RNA (04/04/2016 1:58 PM SAAS ARCHITECT) Component Value Ref Test Analysis Performed At [facility] gist Range Method Time Signature HXChlamydia by POWERCHART Nucleic Acid Amplification HXFinal There is no POWERCHART standard reference or commercial method for obtaining sensitivity results for this organism. HXAmend Negative for POWERCHART Chlamydia trachomatis by RNA amlifiaction HXAmend Reference: POWERCHART Negative Specimen (Source) Anatomical Collection Method Collection Time Re ceived Time Location / / Volume Laterality Cervix/Endocervix 04/04/2016 1:58 PM [facility] ARCHITECT Margarita Roberts M.D. LAB MICROBIOLOGY - GEN ERAL ORDERABLES Performing Organization Address City/[facility]/ZIP Code Phon e Number POWERCHART Pathology [facility]A [employer] Cytology (04/04/2016 12:00 AM SAAS ARCHITECT) Specimen (Source) Anatomical Location Collection Method / Collectio n Time Received Time / Laterality Volume 04/04/2016 Narrative [facility] - 04/09/2016 12:26 PM SAAS ARCHITECT [facility] [place] [address] [facility] [address] [place], [place] ??[address] Patient Name: CHANDRIKA ESQUEDA Patient ID #: [id number] Collected: 04/04/2016 Address: [facility]/State/Zip: [address] [place], [place] ??[phone] Received: Reported: 04/07/2016 04/09/2016 Soc. Sec. #: ?/Age/Sex 1995 (Age: 21) ??F Physician(s): CORIN TRUJILLO MD Copy To: ? [facility] ??[id number] [address] [facility], ??[place] ??[id number] CYTOPATHOLOGY CUPOLA MECH[employer]IC REPORT FINAL CYTOLOGIC DIAGNOSIS Pap Smear VCE - ThinPrep: NEGATIVE FOR INTRAEPITHELIAL LESION OR MALIGNANCY SPARSE TO NO ENDOCERVICAL COMPONENT PRES ENT. SATISFACTORY SPECIMEN FOR EVALUATION. Electronically Signed Out By 04/09/[address](ASCP) NIMISHA Moore CT(ASCP) The Pap test is a screening procedure an d, as such, is subject to both false positive and false negative results as evidenced by published data. ??It is not a diagnostic test and results should be inter preted in the context of the patient's h istory and other clinical findings. ??Obtaining per iodic Pap tests may help to minimize the consequences of any false negatives that may occur. SPECIMEN(S) RECEIVED: Pap Smear VCE - ThinPrep CLINICAL HISTORY: CONTROL Date of Last Menstrual Period: EARLY MARCH Hormonal History: No hormonal therapy Other Clinical Conditions: HPV TYPING REQUESTED: IF ASCUS Margarita Roberts M.D. LAB PAP COPATH ORDERAB LES Performing Organization Address City/State/ZIP Code Phon e Number [facility] documented in this encounter Visit Diagnoses Not on filedocumented in this encounter
--- OUTSIDE RECORDS SUMMARY | 2022-01-24 14:09 | XMS_ITS | Encounter Summary ---
:1995 Author Organization [facility] [place] [address] Care Team Providers Name Role Phone Unavailable Primary Care Provider Unavailable Encounter Details Date Type Department Care Team Description 04/05/2015 Hospital Encounter HX [facility] FB INTERNMED Jaycob Sood M.D. [address] [place] [address] [phone] (Wo rk) Social History Tobacco Use Types Packs/Day Years Used Date Smoking Tobacco: Never Assessed Sex Assigned at Date Recorded Female 07/27/2019 2:28 PM CDT documented as of this encounter Last Filed Vital Signs Vital Sign Reading Time Taken Comments Blood Pressure 118/72 04/05/2015 3:58 PM CONTINUOUS STILL OPERATOR Pulse 100 04/05/2015 3:58 PM CONTINUOUS STILL OPERATOR Temperature - - Respiratory Rate - - Oxygen Saturation - - Inhaled Oxygen Concentration - - Weight 71 kg (156 lb 8.4 oz) 04/05/2015 3:58 PM CONTINUOUS STILL OPERATOR Height 173 cm (5' 8.11) 04/05/2015 3:58 PM CONTINUOUS STILL OPERATOR Body Mass Index 23.72 04/05/2015 3:58 PM CONTINUOUS STILL OPERATOR documented in this encounter Progress Notes Frankie Sood M.D. - 04/05/2015 3:50 PM CST [id number] Chandrika was here yesterday. CHIEF COMPLAINT/REASON FOR VISIT Epigastric pain. HISTORY OF PRESENT ILLNESS Chandrika was feeling pretty good yesterday morning but then started to feel queasy. She went home and ate a simple lunch. Began to get steady pain in the epigastrium that got bad at work in the afternoon and ultimately caused her to have lots of loose watery stools and pretty steady, boring pain epigastrically and in the right upper quadrant. She did vomit once and anything she ate just came up. She has not had fever, chills or sweats. She has today, not had any vomiting but continues to have pain epigastrically. There has been no blood in the stool. The stool was described as loose and watery. MEDICATIONS See medicine list in EHR. ALLERGIES [...] documentation form for this visit. PHYSICAL EXAMINATION ABDOMEN: Soft, scaphoid, nondistended. There is no organomegaly. There is tenderness in the epigastrium and into the right upper quadrant. The left quadrant is not tender. When I percuss over the rightand left upper quadrant, it is tender preferentially to the right. IMPRESSION/REPORT/PLAN It is possible that this is gallbladder disease. The history is not bad and she is tender in the right place. Having said that, the examination is completely nonspecific in general and we are going to have to do an ultrasound to confirm this. I would also do some laboratories. I will try to get the ultrasound as soon as possible. She is instructed to eat no fats if possible until we can get testing done. The patient was agreeable with that. She had today a BMP and a hepatic panel and we are going toschedule for an ultrasound today at latest tomorrow. We may have to look at options here in the [facility] or in the [facility] or at [facility] to get that done with a priority. Frankie Sood M.D./colin Electronically Signed By: FRANKIE SOOD MD On: 04/08/2015 04:41 PM Source: [facility] MHSDOLBEYNONRADSYS Document Id: [id number] INUOUS STILL OPERATOR documented in this encounter Nursing Notes Shahida Arreola L.PJoshuaN. - 04/05/2015 4:37 PM CST ultrasound Patient sheduled for RUQU at [facility] 04/07/15 at 1:30pm Electronically Signed By: SHAHIDA ARREOLA LPN On: 04/05/2015 04:39 PM Source: [facility] POWERCHART Document Id: [id number] INUOUS STILL OPERATOR documented in this encounter Miscellaneous Notes Miscellaneous - Frankie Sood M.D. - 04/08/2015 4:44 PM CST Results Notification From: FRANKIE SOOD MD To: STEPHANI Sood Nurse; Sent: 04/08/2015 16:44:47 CONTINUOUS STILL OPERATOR ! Show up: 04/08/2015 16:44:47 CONTINUOUS STILL OPERATOR Subject: Results Notification Actions: Notify patient of results Reminder Comments: all ok Results: Date Result Name Ind Value Ref Range 04/05/2015 16:32 Sodium Lvl 139 mmol/L (135 - 145) 04/05/2015 16:32 Potassium Lvl 3.8 mmol/L (3.6 - 5.2) 04/05/2015 16:32 Chloride 103 mmol/L (98 - 107) 04/05/2015 16:32 CO2 26 mmol/L (22 - 29) 04/05/2015 16:32 Alkaline Phosphatase (L) 47 unit/L (52 - 144) 04/05/2015 16:32 Glucose Lvl 118 mg/dL (70 - 139) 04/05/2015 16:32 Creatinine 0.8 mg/dL (0.6 - 1.1) 04/05/2015 16:32 EGFR (MDRD) >60 mL/min/1.73m2 (>=60 - ) 04/05/2015 16:32 EGFR (MDRD) >60 mL/min/1.73m2 (>=60 - ) 04/05/2015 16:32 BUN 10 mg/dL (6 - 21) 04/05/2015 16:32 Calcium Lvl 9.8 mg/dL (8.0 - 10.3) 04/05/2015 16:32 Protein Total 6.8 G/DL (6.3 - 7.9) 04/05/2015 16:32 Albumin Lvl 4.2 G/DL (3.2 - 5.2) 04/05/2015 16:32 Globulin 3 04/05/2015 16:32 AST 16 unit/L (8 - 43) 04/05/2015 16:32 ALT 14 unit/L (7 - 45) 04/05/2015 16:32 Bili Total 0.3 mg/dL (0.1 - 1.0) 04/05/2015 16:32 Bili Direct <0.20 mg/dL ( - <=0.30) Source: [facility] POWERCHART Document Id: [id number] Miscellaneous - Flores Muñiz M.D. - 04/06/2015 3:17 PM CST Test result from 04/05/2015 & RUQ ultrasound 04/06/2015 Document Contains Addenda Addendum by EDITH HAGAN LPN on 06 April 2015 15:33:28 CONTINUOUS STILL OPERATOR Patient notified. From: FLORES MUÑIZ MD To: STEPHANI Muñiz Nurse; Cc: FRANKIE SOOD MD; Sent: 04/06/2015 15:17:12 CONTINUOUS STILL OPERATOR Subject: Test result from 04/05/2015 & RUQ ultrasound 04/06/2015 Actions: Notify patient of results, Notify patient of Future Order Please call her. Blood tests from yesterday showed normal electrolytes, kidney function and liver function. Today RUQ ultrasound showed no gallstones. Please see below for details. She needs to follow with her PCP. Findings: Liver: The visualized portion is grossly unremarkable. Pancreas: The visualized portion is grossly unremarkable. Gallbladder: Partially decompressed. No definite gallstones, wall thickening or pericholecystic fluid. Bile ducts and CBD: Grossly unremarkable with the visualized CBD measuring up to 1-2 mm in diameter. Right Kidney: No hydronephrosis. The right kidney measures 10.7 cm in length. Miscellaneous: No free fluid. Normal visualized IVC and aorta. Impression: Unremarkable RUQ ultrasound. Source: [facility] POWERCHART Document Id: [id number] Miscellaneous - Frankie Sood M.D. - 04/05/2015 4:14 PM CST Ambulatory Patient Summary [address] [id number] Visit Information Name: CHANDRIKA ESQUEDA [facility] Number: [id number] Current Date: 04/05/2015 16:14:21 Physicians Attending Provider: FRANKIE SOOD MD Primary [...] david, Topical, once a day (at bedtime) azithromycin (Zithromax TRI-MAYA 500 mg oral tablet) 1 Tablet(s), Oral, once a day x 3 day(s) desogestrel-ethinyl estradiol (Desogen 0.15 mg-0.03 mg oral tablet) 1 Tablet(s), Oral, once a day dicyclomine (Bentyl 10 mg oral capsule) 1 cap, Oral, four times a day 30 minutes before meals and atbedtime Stop Taking the Following Medications: Medication list as of 04-05-15 16:14 Attention: If you have any medications at [...] Electronically Signed By: FRANKIE SOOD MD Signed On:05-APR-2015 16:13:42 Your Allergies & Intolerances Substance Reaction Symptoms Category Comments amoxicillin rash Drug Your Problem List Problem Status Onset Comments Malabsorption Active 02/15/2011 06/02/11 fructose / per [facility] Allergic reaction to drug, not elsewhere classified Active 06/03/2011 06/03/11 amoxicillin Your Upcoming Appointments Date Time Location Provider No Appointments found Attention: Contact your local Clinic if further appointment detail needed. Abdominal Pain,Uncertain Cause [Male] Based on your visit today, the exact cause of your abdominal pain is not clear. Your exam and tests do not indicate a dangerous cause at this time. However, the signs of a serious problem may take moretime to appear. Although your evaluation was reassuring today, sometimes early in the course of many conditions, exam and lab tests can appear normal. Therefore, it is important for you to watch for any new symptoms or worsening of your condition. Causes It may not be obvious what caused your symptoms. Pay attention to things that do seem to make your symptoms worse or better and discuss this with your doctor when you follow up. Diagnosis The evaluation of abdominal pain in the emergency department may only require an exam by the doctor or it may include blood, urine or imaging studies, depending on many factors. Sometimes exams and tests can identify a cause but in many cases, a clear cause is not found. Further testing at follow up visits may help to suggest a clear diagnosis. Home Care ?? Rest as much as possible until your next exam. ?? Try to avoid any medications (unless otherwise directed by your doctor), foods, activities, or other factors that you may have contributed to your symptoms. ?? Try to eat foods that you know that you have tolerated well in the past. Certain diets may be recommended for some conditions that cause abdominal pain. However, since the cause of your symptoms maynot be clear, discuss your diet more with your primary care provider or specialist for further recommendations. ?? Eating several small meals per day as opposed to 2 or 3 larger meals may help. ?? Monitor closely for anything that may make your symptoms worse or better. Pay close attention to symptoms below that may indicate worsening of your condition. Follow Up and Precautions See your doctor as instructed or sooner or if your symptoms are not improving. In some cases, you may need more testing. When to Seek Medical Attention Contact your doctor or see medical attention if any of the following occur: ?? Pain is becoming worse ?? You are unable to take your medications due to excessive vomiting ?? Swelling of the abdomen ?? Fever of 100.4?F (38?C) or higher, or as directed by your health care provider ?? Blood in vomit or bowel movements (dark red or black color) ?? Jaundice (yellow color of eyes and skin) ?? New onset of weakness, dizziness or fainting ?? New onset of chest, arm, back, neck or jaw pain ?? [id number], [place] [address]. All rights reserved. This information is not [...] if you dont have one. Go to [email or web address] and click on Create Your Account. Then, follow the directions to complete the online form. Youll be asked for your [facility] number which you can find at the top of this document. Your Goals/Additional instructions: Source: [facility] POWERCHART Document Id: [id number] INUOUS STILL OPERATOR Miscellaneous - Frankie Sood M.D. - 04/05/2015 4:14 PM CST Ambulatory Discharge Medication List [address] [id number] Visit Information Name: CHANDRIKA ESQUEDA [facility] Number: [id number] Visit Date: 04/05/2015 16:14:20 Attending Provider: FRANKIE SOOD MD Primary Care [...] david, Topical, once a day (at bedtime) azithromycin (Zithromax TRI-MAYA 500 mg oral tablet) 1 Tablet(s), Oral, once a day x 3 day(s) desogestrel-ethinyl estradiol (Desogen 0.15 mg-0.03 mg oral tablet) 1 Tablet(s), Oral, once a day dicyclomine (Bentyl 10 mg oral capsule) 1 cap, Oral, four times a day 30 minutes before meals and atbedtime Stop Taking the Following Medications: Medication list as of 04-05-15 16:14 Attention: If you have any medications at [...] Electronically Signed By: FRANKIE SOOD MD Signed On:05-APR-2015 16:13:42 Additional Information: Source: [facility] POWERCHART Document Id: [id number] INUOUS STILL OPERATOR Miscellaneous - Shahida Arreola LJoshuaPJoshuaN. 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 Entered On: 04/05/2015 16:01 CONTINUOUS STILL OPERATOR Performed On: 04/05/2015 15:58 CONTINUOUS STILL OPERATOR by SHAHIDA ARREOLA LPN Intake Chief Complaint : abd pain last night vomiting and loose stools Temperature Core : 36.3 DegC(Converted to: 97.3 DegF) (LOW) Peripheral Pulse Rate : 100 /min Systolic Blood Pressure : 118 mmHg Diastolic Blood Pressure : 72 mmHg NIBP Mean : 87 mmHg BP Location : Left upper extremity Blood Pressure Cuff Size : Regular Height : 173 cm(Converted to: 5 ft 8 inch(es), 68 inch(es)) Actual Weight : 71 kg(Converted to: 156 lb 8 oz) Weight Source : Standing scale Dosing Weight Clinic : 71 kg Clinic BSA : 1.85 Body Mass Index : 23.72 kg/m2 ARREOLAURIEL ARCHIBALDMALLORY BAKER [facility] - 04/05/2015 15:58 CONTINUOUS STILL OPERATOR General Info Information Given By : Patient Languages : [place] Is Patient Female and 13-50 no hysterectomy : Yes Status : Patient denies Are you ? : No JOSESITO SHAHIDA OLIVIA ACCELERATOR SYSTEMS DIRECTOR - 04/05/2015 15:58 CONTINUOUS STILL OPERATOR Subjective Pain Symptoms : No JOSESITO SHAHIDAMALLORY BAKER ACCELERATOR SYSTEMS DIRECTOR - 04/05/2015 15:58 CONTINUOUS STILL OPERATOR Dependent Habits Exposure to Tobacco Smoke : Other: Never Smoking Status : Never smoker Tobacco 2A : No JOSESITO SHAHIDAMALLORY BAKER ACCELERATOR SYSTEMS DIRECTOR - 04/05/2015 15:58 CONTINUOUS STILL OPERATOR Caffeine Use Grid Caffeine Use : Current Type : Chocolate, Soft drinks Frequency : Occasionally SHAHIDA ARREOLA ACCELERATOR SYSTEMS DIRECTOR - 04/05/2015 15:58 CONTINUOUS STILL OPERATOR Recreational Drug Use Grid Drug Use : None JOSESITO SHAHIDAMALLORY BAKER [facility] 04/05/2015 15:58 CONTINUOUS STILL OPERATOR Source: [facility] NearDeskCHART Document Id: [id number] CONTINUOUS STILL OPERATOR!36 INUOUS STILL OPERATOR documented in this encounter Plan of Treatment Not on filedocumented as of this encounter Procedures Procedure Name Priority Date/Time Associated Diagnosis Comme nts HEPATIC FUNCTION Routine 04/05/2015 4:32 PM Resul ts for this PANEL, S CONTINUOUS STILL OPERATOR procedure are i n the results section. BASIC METABOLIC Routine 04/05/2015 4:32 PM Result s for this PANEL, S/P CONTINUOUS STILL OPERATOR procedure are i n the results section. documented in this encounter Results (ABNORMAL) Hepatic Function Panel (04/05/2015 4:32 PM CONTINUOUS STILL OPERATOR) [employer] Method Time Signature Alkaline 47 (L) 52 - 144 POWERCHART Phosphatase, S UNITL Alanine 14 7 - 45 POWERCHART Amniotransferase, LD UNITL Aspartate 16 8 - 43 POWERCHART Aminotransferase UNITL (AST), S Bilirubin, Direct, S <0.20 <=0.30 POWERCHAR T MGDL Bilirubin, Total, S 0.3 0.1 - 1.0 POWERCHART MGDL Total Protein, S 6.8 6.3 - 7.9 POWERCHART GDL Albumin, S 4.2 3.2 - 5.2 POWERCHART GDL HXGlobulin 3 POWERCHART Specimen (Source) Anatomical Collection Method Collection Time Re ceived Time Location / / Volume Laterality Blood 04/05/2015 4:32 PM CONTINUOUS STILL OPERATOR Frankie Sood M.D. LAB BLOOD ADD-ON Performing Organization Address City/State/ZIP Code Phon e Number POWERCHART BMP (Basic Metabolic Panel) (04/05/2015 4:32 PM CONTINUOUS STILL OPERATOR) P athologist Signature BUN (Blood Urea 10 6 - 21 POWERCHART Nitrogen), S MGDL Chloride, S 103 98 - 107 POWERCHART MMOLL CO2 Total 26 22 - 29 POWERCHART MMOLL Creatinine 0.8 0.6 - 1.1 POWERCHART MGDL Glucose 118 70 - 139 POWERCHART MGDL Calcium, Total, 9.8 8.0 - 10.3 POWERCHART S MGDL Sodium, S 139 135 - 145 POWERCHART MMOLL Potassium, S 3.8 3.6 - 5.2 POWERCHART MMOLL HXeGFR (MDRD) >60 >=60 POWERCHART [id number] eGFR >60 >=60 POWERCHART Black/ [id number] [place] Specimen (Source) Anatomical Collection Method Collection Time Re ceived Time Location / / Volume Laterality Blood 04/05/2015 4:32 PM CONTINUOUS STILL OPERATOR Frankie Sood M.D. LAB BLOOD ADD-ON Performing Organization Address City/State/ZIP Code Phon e Number POWERCHART documented in this encounter Visit Diagnoses Not on filedocumented in this encounter
--- OUTSIDE RECORDS SUMMARY | 2022-01-24 14:09 | XMS_ITS | Encounter Summary ---
:1995 Author Organization [facility] [place] [address] Care Team Providers Name Role Phone Unavailable Primary Care Provider Unavailable Encounter Details Date Type Department Care Team Description 04/11/2015 Hospital Encounter HX [facility]HB INTERNMED Jaycob Sood M.D. [address] [place] [address] [phone] (Wo rk) Social History Tobacco Use Types Packs/Day Years Used Date Smoking Tobacco: Never Assessed Sex Assigned at Date Recorded Female 07/27/2019 2:28 PM CDT documented as of this encounter Last Filed Vital Signs Vital Sign Reading Time Taken Comments Blood Pressure 112/61 04/11/2015 1:41 PM MERRY GO ROUND ATTENDANT Pulse 86 04/11/2015 1:41 PM MERRY GO ROUND ATTENDANT Temperature - - Respiratory Rate 14 04/11/2015 1:41 PM MERRY GO ROUND ATTENDANT Oxygen Saturation - - Inhaled Oxygen Concentration - - Weight 69.5 kg (153 lb 3.5 oz) 04/11/2015 1:41 PM MERRY GO ROUND ATTENDANT Height 173 cm (5' 8.11) 04/11/2015 1:41 PM MERRY GO ROUND ATTENDANT Body Mass Index 23.22 04/11/2015 1:41 PM MERRY GO ROUND ATTENDANT documented in this encounter Progress Notes Frankie Sood M.D. - 04/11/2015 1:31 PM CST [id number] Chandrika presents today with the results for ultrasound, which was negative. We talked for a while and she would really like to have her gallbladder out and see what that would do for her. I do not think the surgeon would go near this without abnormalities on the gallbladder scan which she had. What the surgeon would order is a HIDA scan and check the ejection fraction of the gallbladder, so that will be our next step. I will schedule a HIDA scan. Then what I told her is that if that does not show anything significant I will have her just see the surgeon and see which he says. He can look over thetotality of her problems. She was comfortable with that approach. MEDICATIONS See medicine list in EHR. ALLERGIES [...] documentation form for this visit. PHYSICAL EXAMINATION Not performed. IMPRESSION/REPORT/PLAN She has difficult abdominal pain, etiology unclear, but she is getting better today she does admit, and so will order a HIDA scan, see what that shows and then a consult with the surgeon either positive or negative as the next step. I offered her to go to [place] and she does not want to do that yetat this point. Frankie Sood M.D./colin Electronically Signed By: FRANKIE SOOD MD On: 04/12/2015 07:46 AM Source: [facility] MHSDOLBEYNONRADSYS Document Id: [id number] Y GO ROUND ATTENDANT documented in this encounter Nursing Notes Shahida Arreola L.PJoshuaNJoshua - 04/11/2015 2:04 PM CST HIDA order for HIDA scan faxed to [facility] Electronically Signed By: SHAHIDA ARREOLA LPN On: 04/11/2015 02:04 PM Source: [facility] POWERCHART Document Id: [id number] Y GO ROUND ATTENDANT documented in this encounter Miscellaneous Notes Telephone Encounter - Conversion, Historical Provider Ser - 04/17/2015 1:01 PM CST *Phone Message Document Contains Addenda Addendum by SHAHIDA ARREOLA LPN on 17 April 2015 14:10:41 MERRY GO ROUND ATTENDANT called with results Addendum by PRICILA BEDOLLA CNP on 17 April 2015 14:08:53 MERRY GO ROUND ATTENDANT From: PRICILA BEDOLLA CNP To: SHAHIDA ARREOLA LPN; Sent: 04/17/2015 14:08:53 MERRY GO ROUND ATTENDANT Subject: RE: *Phone Message HIDA scan is normal. Addendum by SHAHIDA ARREOLA LPN on 17 April 2015 14:05:49 MERRY GO ROUND ATTENDANT From: SHAHIDA ARREOLA LPN ( [facility] Nurse) To: PRICILA BEDOLLA CNP; Sent: 04/17/2015 14:05:49 MERRY GO ROUND ATTENDANT Subject: FW: *Phone Message called for results From: FAVIAN THEODORE ( [facility] [place] [facility] Test Director) To: [place] Nurse; Sent: 04/17/2015 13:01:43 MERRY GO ROUND ATTENDANT Subject: *Phone Message Caller is: ( x ) Patient ( ) Mother ( ) Father ( ) Spouse ( ) Daughter ( ) Son ( ) Pharmacy ( ) Other: Physician: Patient Reason for Call: Message: Patient called to leave message with her provider's nurse (Indigo) Patient would like theresults of her tests she had done on Thursday. Call patient at [phone] Advice/Action: Source used: ( ) Verbalizes understanding of instructions ( ) Instructed to call back if symptoms worsen or do not resolve ( ) Refused to see provider ( ) Appointment Scheduled ( ) OK to leave message on voice mail ( ) Patient told to expect return call: ( ) today ( ) tomorrow ( ) next work day ( ) Patient's email ( ) Patient told physician out of office, will call upon return call on ( ) ( ) Patient told physician out of office, routed to other physician ( ) Other ( ) Call back telephone number ( ) Call back cell phone number ( ) Source: [facility] POWERCHART Document Id: [id number] Miscellaneous - Frankie Sood M.D. - 04/11/2015 2:03 PM CST Ambulatory Patient Summary [address] [place] [id number] Visit Information Name: CHANDRIKA ESQUEDA [facility] Number: [id number] Current Date: 04/11/2015 14:03:29 Physicians Attending Provider: FRANKIE SOOD MD Primary [...] the Following Medications: Medication list as of 04-11-15 14:03 Attention: If you have any medications at [...] Electronically Signed By: FRANKIE SOOD MD Signed On:11-APR-2015 14:01:51 Your Allergies & Intolerances Substance Reaction Symptoms Category Comments amoxicillin rash Drug Your Problem List Problem Status Onset Comments Allergic reaction to drug, not elsewhere classified Active 06/03/2011 06/03/11 amoxicillin Other intestinal malabsorption Active Your Upcoming Appointments Date Time Location Provider No Appointments found Attention: Contact your local Clinic if further appointment detail needed. Deciding About Artificial Feeding When you have a serious illness, your doctor will review treatment options with you as your illness progresses. Some of these treatments help support or sustain life if your body can no longer perform certain functions on its own. Artificial feeding is one such treatment. It supplies artificial nutrition to your body if you can no longer take in food by mouth. This sheet tells you more about artificial feeding and what you need to know when deciding about this treatment. You and your loved ones can meet with the doctor and health care team to learn more about artificialfeeding and what it means for you. How Is Artificial Feeding Given? Artificial feeding can be given in a number of ways. Each way involves the use of a tube to send liquid food to the body. Some types of tubes include: ?? Nasogastric (NG) tube. This tube is placed through the nose and down into the stomach. It sends liquid food directly to the stomach. ?? Gastrostomy tube (G-tube) or percutaneous endoscopic gastrostomy tube (PEG tube). This tube is placed through a small hole in the abdomen. It sends liquid food directly into the stomach. ?? IV tube. This tube is placed into a vein. It sends liquid food directly into the blood vessels. What Are the Risks of Artificial Feeding? Risks can include bleeding or infection at the tube site and problems with the tube. Aspiration pneumonia is also a risk. This is a life-threatening problem that occurs if artificial nutrition goes into the lungs instead of the stomach. What Happens If I Choose to Have Artificial Feeding? You will receive artificial nutrition to help your body function. This may help you feel better and improve your quality of life for a time. If you are near the end of your life, you may find it hard to tolerate the problems that can occur with the treatment. In this case, your doctor may recommend against artificial feeding if it is too much of a burden on your body, or if it will not prolong life or provide symptom relief. What Happens If I Choose Not to Have Artificial Feeding? You will continue to receive comfort care. This includes measures to relieve pain and other symptoms. If you can still chew or swallow, you may be offered food for pleasure. This is done by spoon feeding or careful hand feeding. If you cannot take in any food by mouth and choose not to have artificialfeeding, your body will slowly shut down. will likely occur within a few days or weeks. You may find it reassuring to know that most patients near the end of do not typically feel hunger orthirst. Dry mouth is a more common problem, which can be relieved by keeping the lips and mouth moist. Ice chips and small sips of water can also be given, if desired. How Do I Decide If I Want Artificial Feeding? Your doctor and other members of your health care team can tell you more about artificial feeding and what it means for you. If you want, you may include family and friends in these discussions. As youmake your decision, here are some things to think about or ask your health care team: ?? Will my illness improve? Or will it worsen? How likely is a cure? ?? How will artificial feeding affect my health? Will having the treatment change the outcome of my illness? ?? What are the risks and benefits of artifi cial feeding? And what problems can it cause? Will I beable to live with these problems? ?? How will artificial feeding affect my comfort and quality of life? Consider your own values or kelley. Also ask for advice from those who share your values. Note: If youre having trouble deciding about artificial feeding, ask your doctor if you can try it for a short time to see if it helps you feel better. When the trial is done, you may then choose whether to continue or stop the treatment. How Do I State My Decision About Artificial Feeding? You can make your decision known by telling your doctor directly. It is best to also put your treatment wishes in writing with advance directives. These are legal forms related to health care decisions. Laws about advance directives vary from state to state. Ask your doctor about what forms are neededto make sure your wishes will be followed. Some common forms include: ?? A durable power of deputy commonwealth's attorney for health care or health care proxy form. This form allows you to name a person to make treatment decisions on your behalf when you cant. This person is often called a health care proxy, medical or health care power of deputy commonwealth's attorney, surrogate decision maker, or agent. ?? A living will. This form tells others the kinds of treatment you want or dont want when you become too ill or injured to speak for yourself. Keep in mind that you can change or cancel an advance directive at any time. Make it a practice to review your decisions each time there is a change in your health or goals of care. Also be sure to tell your health care proxy and loved ones of any changes in your decisions. Deciding About Artificial Feeding for a Loved One Ideally, the decision about artificial feeding is made with the patients consent. But in some cases, the decision may fall to the patients health care proxy or other adult. If you need to decide about artificial feeding for a loved one, start by talking to his or her doctor. Discuss the goals of care and the benefits and burdens of the treatment on your loved ones health. Also think about your loved ones wishes and values. If needed, seek advice fromother health care team members, such as a social sciences professor or financial solutions advisor. ?? 5062-2438 [facility], [address] [place] [address]. All rights reserved. This information is not [...] if you dont have one. Go to [email or web address] and click on Create Your Account. Then, follow the directions to complete the online form. Youll be asked for your [facility] number which you can find at the top of this document. Your Goals/Additional instructions: This document has images extracted. Please consider using [employer] for all your patient education needs. Source: [facility] POWERCHART Document Id: [id number] Y GO ROUND ATTENDANT Miscellaneous - Frankie Sood M.D. - 04/11/2015 2:03 PM CST Ambulatory Discharge Medication List [address] [id number] Visit Information Name: CHANDRIKA ESQUEDA [facility] Number: [id number] Visit Date: 04/11/2015 14:03:28 Attending Provider: FRANKIE SOOD MD Primary Care [...] the Following Medications: Medication list as of 04-11-15 14:03 Attention: If you have any medications at [...] Electronically Signed By: FRANKIE SOOD MD Signed On:11-APR-2015 14:01:51 Additional Information: Source: [facility] POWERCHART Document Id: [id number] Y GO ROUND ATTENDANT Miscellaneous - Emelina Aleman, C.M.A. - 04/11/2015 1:41 PM CST Adult Military Technician Intake/History Adult Military Technician Intake/History Entered On: 04/11/2015 13:42 MERRY GO ROUND ATTENDANT Performed On: 04/11/2015 13:41 MERRY GO ROUND ATTENDANT by EMELINA ALEMAN SHIPPING PROCESSOR Intake Chief Complaint : ER f/u Temperature Core : 36.8 DegC(Converted to: 98.2 DegF) Peripheral Pulse Rate : 86 /min Respiratory Rate : 14 /min Systolic Blood Pressure : 112 mmHg Diastolic Blood Pressure : 61 mmHg NIBP Mean : 78 mmHg BP Location : Left upper extremity Blood Pressure Cuff Size : Regular Height : 173 cm(Converted to: 5 ft 8 inch(es), 68 inch(es)) Actual Weight : 69.5 kg(Converted to: 153 lb 4 oz) Weight Source : Standing scale Dosing Weight Clinic : 69.5 kg Clinic BSA : 1.83 Body Mass Index : 23.22 kg/m2 EMELINA ALEMAN [facility] - 04/11/2015 13:41 MERRY GO ROUND ATTENDANT General Info Information Given By : Patient Languages : Portuguese Is Patient Female and 13-50 no hysterectomy : Yes Status : Patient denies Are you ? : No EMELINA ALEMAN [facility] - 04/11/2015 13:41 MERRY GO ROUND ATTENDANT Subjective Pain Symptoms : No EMELINA ALEMAN [facility] - 04/11/2015 13:41 MERRY GO ROUND ATTENDANT Dependent Habits Exposure to Tobacco Smoke : Other: Never Smoking Status : Never smoker Tobacco 2A : No EMELINA ALEMAN [facility] - 04/11/2015 13:41 MERRY GO ROUND ATTENDANT Caffeine Use Grid Caffeine Use : Current Type : Chocolate, Soft drinks Frequency : Occasionally EMELINA ALEMAN [facility] - 04/11/2015 13:41 MERRY GO ROUND ATTENDANT Recreational Drug Use Grid Drug Use : None EMELINA ALEMAN [facility] - 04/11/2015 13:41 MERRY GO ROUND ATTENDANT Source: [facility] POWERCHART Document Id: [id number] MERRY GO ROUND ATTENDANT!37 Y GO ROUND ATTENDANT documented in this encounter Plan of Treatment Not on filedocumented as of this encounter Visit Diagnoses Not on filedocumented in this encounter
--- OUTSIDE RECORDS SUMMARY | 2022-01-24 14:09 | XMS_ITS | Encounter Summary ---
:1995 Author Organization [facility] [place] [address] Care Team Providers Name Role Phone Unavailable Primary Care Provider Unavailable Encounter Details Date Type Department Care Team Description 05/31/2015 Hospital Encounter HX [facility] FB[facility] FAMILYPRA Zaynab Barr i, M.D. [address] [place] [phone] (Wo rk) Social History Tobacco Use Types Packs/Day Years Used Date Smoking Tobacco: Never Assessed Sex Assigned at Date Recorded Female 07/27/2019 2:28 PM CDT documented as of this encounter Last Filed Vital Signs Vital Sign Reading Time Taken Comments Blood Pressure 102/60 05/31/2015 10:10 AM LIGHT TRUCK DRIVER Pulse 84 05/31/2015 10:10 AM LIGHT TRUCK DRIVER Temperature - - Respiratory Rate 12 05/31/2015 10:10 AM LIGHT TRUCK DRIVER Oxygen Saturation - - Inhaled Oxygen Concentration - - Weight 70 kg (154 lb 5.2 oz) 05/31/2015 10:10 AM LIGHT TRUCK DRIVER Height 173 cm (5' 8.11) 05/31/2015 9:47 AM LIGHT TRUCK DRIVER Body Mass Index 23.39 05/31/2015 9:47 AM LIGHT TRUCK DRIVER documented in this encounter Progress Notes Zaynab Skelton M.D. - 05/31/2015 9:45 AM CST [id number] CHIEF COMPLAINT/ REASON FOR VISIT Cold symptoms. HISTORY OF PRESENT ILLNESS Chandrika is a 20 year old female who presents to the clinic today for cold symptoms. Eliabebabeluis felipe ears have been bothering her for the past couple days. Her throat is sore and it is painful to swallow and the pain shoots up to her ears. Her sinuses are tender. Chandrika vomited last night and it was mostly mucous. She mentions that she has had a lot of post nasal drip. The patient denies any additional questions or concerns at this time. MEDICATIONS Post-visit Medication Reconciliation Reviewed and are as outlined in the EMR includin. Ceftin 500 mg, 1 tablet, PO, b.i.d. for 10 days. ALLERGIES Amoxicillin - rash on her legs. SYSTEMS REVIEW Please see HPI for pertinent positives, otherwise rest of ROS negative. PAST MEDICAL/SURGICAL HISTORY 1. Malabsorption. 2. Dysmenorrhea. 3. Tonsillectomy and adenoidectomy. PREVENTIVE SERVICES Tobacco use: none. VITAL SIGNS WEIGHT: 70 kg. TEMP: 36.7 Deg C. PULSE: 84 /min. RESP: 12 /min. SYSTOLIC: 102 mmHg. DIASTOLIC: 60 mmHg. PHYSICAL EXAMINATION GENERAL: Patient is alert and oriented times three, in no acute distress, good hygiene and is dressed appropriately. ENT: Tympanic membranes are normal bilaterally. Tonsils are 3+, injected without exudate. Nasal mucosa is without injection. Neck is without adenopathy. LYMPH NODES: Not palpably enlarged and no nodules are palpated. HEART: Regular rate and rhythm without murmur. LUNGS: Clear to auscultation. IMPRESSION/REPORT/PLAN 1. Tonsillitis. Prescription was given for Ceftin 500 mg twice daily for 10 days. Symptomatic care measures were encouraged including rest, fluids and throat lozenges. 2. Follow up. The patient will contact the clinic with any new or worsening symptoms. This document serves as a record of services personally performed by Zaynab Sanchez MD. It was created on their behalf by Frida Espinosa, a trained internist medical doctor md. The creation of this record is based on the scribe's personal observations and the provider's statements to them. This document has been chalo cked and approved by the attending provider. Zaynab Goodwin M.D./devon Electronically Signed By: ZAYNAB SKELTON MD On: 06/02/2015 09:09 PM Source: [facility] CORINNESDOLJUMARADSYS Document Id: [id number] T TRUCK DRIVER documented in this encounter Miscellaneous Notes Miscellaneous - Rabia Schaeffer L.P.N. - 05/31/2015 10:13 AM CST Health Assessment Health Assessment Entered On: 05/31/2015 10:14 LIGHT TRUCK DRIVER Performed On: 05/31/2015 10:13 LIGHT TRUCK DRIVER by RABIA SCHAEFFER LPN Health Assessment Complete Health Assessment Complete or Modified : Annual Health Assessment Annual Health Assessment Completed : Yes RABIA SCHAEFFER LPN - 05/31/2015 10:13 LIGHT TRUCK DRIVER Nutrition Nutrition Risk Factors by History Adult : None RABIA SCHAEFFER LPN - 05/31/2015 10:13 LIGHT TRUCK DRIVER Functional Current Daily Living Assistance : None RABIA SCHAEFFER LPN - 05/31/2015 10:13 LIGHT TRUCK DRIVER Dependent Habits Exposure to Tobacco Smoke : Other: Never Smoking Status : Never smoker Tobacco 2A : No Tobacco Use/Currently Using : No Tobacco Use/Last 30 Days : No Tobacco Use/Last 12 months : No RABIA SCHAEFFER LPN - 05/31/2015 10:13 LIGHT TRUCK DRIVER Caffeine Use Grid Caffeine Use : Current Type : Chocolate, Soft drinks Frequency : Occasionally RABIA SCHAEFFER LPN - 05/31/2015 10:13 LIGHT TRUCK DRIVER Alcohol Use : No RABIA SCHAEFFER LPN - 05/31/2015 10:13 LIGHT TRUCK DRIVER Recreational Drug Use Grid Drug Use : None RABIA SCHAEFFER LPN - 05/31/2015 10:13 LIGHT TRUCK DRIVER Psychosocial Domestic Abuse Concerns : None Behavioral Health Screen/Safety Assmt : No Episcopalian Preference : Unknown RABIA SCHAEFFER LPN - 05/31/2015 10:13 LIGHT TRUCK DRIVER Advance Directive Advanced Directives : No Advance Directive Additional Information : No RABIA SCHAEFFER LPN - 05/31/2015 10:13 LIGHT TRUCK DRIVER Educ Needs Learning Style Preference Adult Grid Patient : Demonstration, Printed materials, Verbal explanation Family : Demonstration, Printed materials, Verbal explanation RABIA SCHAEFFER LPN - 05/31/2015 10:13 LIGHT TRUCK DRIVER Source: [facility] POWERCHART Document Id: [id number] LIGHT TRUCK DRIVER!35 T TRUCK DRIVER Miscellaneous - Rabia Schaeffer L.P.N. - 05/31/2015 10:10 AM CST Adult Assistant Professor Of Education Intake/History Adult Assistant Professor Of Education Intake/History Entered On: 05/31/2015 10:13 LIGHT TRUCK DRIVER Performed On: 05/31/2015 10:10 LIGHT TRUCK DRIVER by RABIA SCHAEFFER LPN Intake Chief Complaint : sinus, sore throat, ears, congestion Temperature Core : 36.7 DegC(Converted to: 98.1 DegF) Peripheral Pulse Rate : 84 /min Respiratory Rate : 12 /min (LOW) Heart Rhythm : Regular Systolic Blood Pressure : 102 mmHg Diastolic Blood Pressure : 60 mmHg NIBP Mean : 74 mmHg BP Location : Left upper extremity Blood Pressure Cuff Size : Regular Actual Weight : 70 kg(Converted to: 154 lb 5 oz) Weight Source : Standing scale Dosing Weight Clinic : 70 kg RABIA SCHAEFFER LPN - 05/31/2015 10:10 LIGHT TRUCK DRIVER General Info Information Given By : Patient Languages : Macedonian Is Patient Female and 13-50 no hysterectomy : Yes Status : Patient denies Are you ? : No RABIA SCHAEFFER LPN - 05/31/2015 10:10 LIGHT TRUCK DRIVER Subjective Pain Symptoms : Yes RABIA SCHAEFFER LPN - 05/31/2015 10:10 LIGHT TRUCK DRIVER Pain Scale Pain Scale Verbal 0-10 : Open RABIA SCHAEFFER LPN - 05/31/2015 10:10 LIGHT TRUCK DRIVER Pain Pain Assessment Grid Pain 1 Location : Sinus RABIA SCHAEFFER LPN - 05/31/2015 10:10 LIGHT TRUCK DRIVER Dependent Habits Exposure to Tobacco Smoke : Other: Never Smoking Status : Never smoker Tobacco 2A : No Tobacco Use/Currently Using : No Tobacco Use/Last 30 Days : No Tobacco Use/Last 12 months : No RABIA SCHAEFFER LPN - 05/31/2015 10:10 LIGHT TRUCK DRIVER Caffeine Use Grid Caffeine Use : Current Type : Chocolate, Soft drinks Frequency : Occasionally RABIA SCHAEFFER LPN - 05/31/2015 10:10 LIGHT TRUCK DRIVER Recreational Drug Use Grid Drug Use : None RABIA SCHAEFFER LPN - 05/31/2015 10:10 LIGHT TRUCK DRIVER Source: [facility] POWERCHART Document Id: [id number] LIGHT TRUCK DRIVER!44 T TRUCK DRIVER documented in this encounter Plan of Treatment Not on filedocumented as of this encounter Visit Diagnoses Not on filedocumented in this encounter
--- OUTSIDE RECORDS SUMMARY | 2022-01-24 14:09 | XMS_ITS | Encounter Summary ---
:1995 Author Organization [facility] [address] Care Team Providers Name Role Phone Unavailable Primary Care Provider Unavailable Encounter Details Date Type Department Care Team Description 04/04/2015 Hospital Encounter HX [facility] FB INTERNMED Jaycob Sood M.D. [address] [place] [address] [phone] (Wo rk) Social History Tobacco Use Types Packs/Day Years Used Date Smoking Tobacco: Never Assessed Sex Assigned at Date Recorded Female 07/27/2019 2:28 PM CDT documented as of this encounter Last Filed Vital Signs Vital Sign Reading Time Taken Comments Blood Pressure 108/62 04/04/2015 9:[address] Pulse 108 04/04/2015 9:[address]ER Temperature - - Respiratory Rate 14 04/04/2015 9:[address]ER Oxygen Saturation - - Inhaled Oxygen Concentration - - Weight 71.5 kg (157 lb 10.1 oz) 04/04/2015 9:[address]ER Height 173 cm (5' 8.11) 04/04/2015 9:[address]ER Body Mass Index 23.89 04/04/2015 9:[address]ER documented in this encounter Progress Notes Frankie Sood M.D. - 04/04/2015 9:11 AM CST [id number] Chandrika comes today much improved. She feels she is doing a lot better. She still has some symptoms but does not want to undergo any further testing and I think that is agreeable because to do further testing we would have to do endoscopies which would be uncomfortable and unpleasant. She thinks the dicyclomine (Bentyl) does help her and it is safe to take. She can use it indefinitely as I think there is a component of irritable bowel syndrome as well. 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 She has aching in her left ear and wants me to have a look at that and I can do that. She does not have fever, chills, or sweats. MEDICATIONS See medicine list in EHR. ALLERGIES [...] documentation form for this visit. PHYSICAL EXAMINATION ENT: Her left ear has otitis media. The right does not. IMPRESSION/REPORT/PLAN 1. Irritable bowel syndrome with malabsorption of fructose. Follow the diet and use the dicyclomine.Probably an associated component of irritable bowel syndrome. 2. Otitis media on the left. We will use Zithromax. She is allergic to penicillins but Zithromax rarely causes diarrhea. She will take 500 mg once a day on an empty stomach, 1 hour before or 2 hours after eating, for 3 days. She was comfortable with this approach. She will recheck as needed. Frankie Sood M.D./colin Electronically Signed By: FRANKIE SOOD MD On: 04/04/2015 03:07 PM Source: [facility] MHSDOLBEYNONRADSYS Document Id: [id number] T [address] BUYER documented in this encounter Miscellaneous Notes Miscellaneous - Frankie Sood M.D. - 04/04/2015 9:30 AM CST Ambulatory Patient Summary [address] [id number] Visit Information Name: CHANDRIKA ESQUEDA [facility] Number: [id number] Current Date: 04/04/2015 09:30:15 Physicians Attending Provider: FRANKIE SOOD MD Primary Care Provider: MARGARITA PALAFOX MD CHANDRIKA ESQUEDA JUNIOR has been given [...] Oral, once a day x 3 day(s) New Routed to [facility] [address] [place] [address] desogestrel-ethinyl estradiol (Desogen 0.15 mg-0.03 mg oral tablet) 1 Tablet(s), Oral, once a day dicyclomine (Bentyl 10 mg oral capsule) 1 cap, Oral, four times a day 30 minutes before meals and atbedtime Routed to [facility] [address] [place] [address] Stop Taking the Following Medications: Medication list as of 04-04-15 09:30 Attention: If you have any medications at [...] Electronically Signed By: FRANKIE SOOD MD Signed On:04-APR-2015 09:27:59 Your Allergies & Intolerances Substance Reaction Symptoms Category Comments amoxicillin rash Drug Your Problem List Problem Status Onset Comments Malabsorption Active 02/15/2011 06/02/11 fructose / per [facility] Allergic reaction to drug, not elsewhere classified Active 06/03/2011 06/03/11 amoxicillin Your Upcoming Appointments Date Time Location Provider No Appointments found Attention: Contact your local Clinic if further appointment detail needed. Acute Otitis Media With Infection [Infant/Toddler] The middle ear is the space behind the eardrum. The eustachian tubes connect the ears to the nasal passage. They help drain normal fluids and equalize pressure in the ear. The tubes are shorter and more horizontal in children, so they are more likely to become blocked. As a result of a blockage, fluidand pressure build up in the middle ear. If bacteria or fungi grow in the fluid, an ear infection results. This is called acute otitis media. It is more commonly known as an earache. Symptoms of an earache include fussiness, increased crying, pulling at the ear, or shaking the head.If the child can talk, he or she may complain of ear pain. The ear infection may be preceded by a respiratory infection. After an ear infection is treated and has cleared, the middle ear may still contain fluid buildup. This fluid may take weeks or months to go away. During that time, your child may have temporary reduced hearing. But all other symptoms of the earache should be gone. Home Care: Medications: The doctor will likely prescribe medications for pain, such as acetaminophen. The doctor may also prescribe medications for infection (antibiotics or antifungals). Because ear infections can clear up on their own, the doctor may suggest a waiting period of a few days before giving the child medications for infection. Medications may be in liquid form to give orally or as eardrops. Followthe doctors instructions for using medications. To Apply Eardrops: If the eardrop medication is refrigerated, put the bottle in warm water before using. Cold drops in the ear are uncomfortable. Have your child lie down on a flat surface. Gently hold the head to one side. Remove any drainage from the ear with a clean tissue or cotton swab. Clean only the outer ear. Do not insert the swab into the ear canal. Straighten the ear canal: Pull the earlobe down and back. Keep the dropper ? inch above the ear canal to avoid contamination. Apply the drops against the side of the ear canal. Have your child stay lying down for 2 to 3 minutes. This gives time for the medication to enter the ear canal. If your child does not have pain, gently massage the outer ear near the opening.Wipe away excess medication from the outer ear with a clean cotton ball. General Care: To reduce pain, have your child rest in an upright position. Use hot or cold compresses. Keep the ear dry. Have your child wear a shower cap when bathing. Avoid smoking near your child. Smoking has been shown to increase the incidence of ear infections inchildren. Follow Up as advised by the doctor or our staff. Special Notes To Parents: If your child continues to get earaches, your stephon doctor may talk to you about inserting small tubes in the stephon eardrum to help prevent fluid buildup. This is a simple and effective surgical procedure. Get Prompt Medical Attention if any of the following occur: ?? Fever greater than 100.4?F (38?C) oral/rectal ?? New symptoms, especially swelling around the ear or weakness of face muscles ?? Severe pain ?? Infection that seems to get worse, not better ?? [id number] [place] [address]. All rights reserved. This information is not [...] if you dont have one. Go to [email or web address] and click on Create Your Account. Then, follow the directions to complete the online form. Youll be asked for your [facility] number which you can find at the top of this document. Your Goals/Additional instructions: Source: [facility] POWERCHART Document Id: [id number] [address] BUYER Miscellaneous - Frankie Sood M.D. - 04/04/2015 9:30 AM CST Ambulatory Discharge Medication List [address] [id number] Visit Information Name: CHANDRIKA ESQUEDA [facility] Number: [id number] Visit Date: 04/04/2015 09:30:14 Attending Provider: FRANKIE SOOD MD Primary Care [...] Oral, once a day x 3 day(s) New Routed to [facility] [address] [place] [address] desogestrel-ethinyl estradiol (Desogen 0.15 mg-0.03 mg oral tablet) 1 Tablet(s), Oral, once a day dicyclomine (Bentyl 10 mg oral capsule) 1 cap, Oral, four times a day 30 minutes before meals and atbedtime Routed to [facility] [address] [place] [address] Stop Taking the Following Medications: Medication list as of 04-04-15 09:30 Attention: If you have any medications at [...] Electronically Signed By: FRANKIE SOOD MD Signed On:04-APR-2015 09:27:59 Additional Information: Source: 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 Intake/History Entered On: 04/04/2015 9:[address] Performed On: 04/04/2015 9:[address] BUYER by KALEB ALEMAN [facility] Intake Chief Complaint : Fu/ from previous Temperature Core : 36.4 DegC(Converted to: 97.5 DegF) (LOW) Peripheral Pulse Rate : 108 /min (HI) Respiratory Rate : 14 /min Heart Rhythm : Regular Systolic Blood Pressure : 108 mmHg Diastolic Blood Pressure : 62 mmHg NIBP Mean : 77 mmHg BP Location : Right upper extremity Blood Pressure Cuff Size : Regular SpO2 : 96 % Oxygen Therapy : Room air Height : 173 cm(Converted to: 5 ft 8 inch(es), 68 inch(es)) Actual Weight : 71.5 kg(Converted to: 157 lb 10 oz) Weight Source : Standing scale Dosing Weight Clinic : 71.5 kg Clinic BSA : 1.85 Body Mass Index : 23.89 kg/m2 KALEB ALEMAN [facility] - 04/04/2015 9:[address] General Info Information Given By : Patient Languages : [place] Is Patient Female and 13-50 no hysterectomy : Yes Status : Patient denies Are you ? : No KALEB ALEMAN CMA - 04/04/2015 9:[address] Subjective Pain Symptoms : No KALEB ALEMAN CMA - 04/04/2015 9:[address] BUYER Dependent Habits Exposure to Tobacco Smoke : Other: Never Smoking Status : Never smoker Tobacco 2A : No KALEB ALEMAN CMA - 04/04/2015 9:[address]ER Caffeine Use Grid Caffeine Use : Current Type : Chocolate, Soft drinks Frequency : Occasionally KALEB ALEMAN CMA - 04/04/2015 9:[address] BUYER Recreational Drug Use Grid Drug Use : None KALEB ALEMAN CMA - 04/04/2015 9:[address] BUYER Source: [facility] POWERCHART Document Id: [id number] [address] OF [address] BUYER![address] BU[address]ER documented in this encounter Plan of Treatment Not on filedocumented as of this encounter Visit Diagnoses Not on filedocumented in this encounter
--- OUTSIDE RECORDS SUMMARY | 2022-01-24 14:09 | XMS_ITS | Encounter Summary ---
:1995 Author Organization [facility] [place] [address] Care Team Providers Name Role Phone Unavailable Primary Care Provider Unavailable Encounter Details Date Type Department Care Team Description 08/04/2016 Hospital Encounter HX [facility] INTERNMED Flores Muñiz M.D. [address] [facility] [address] [place] [phone] Social History Tobacco Use Types Packs/Day Years Used Date Smoking Tobacco: Never Sex Assigned at Date Recorded Female 07/27/2019 2:28 PM CDT documented as of this encounter Last Filed Vital Signs Vital Sign Reading Time Taken Comments Blood Pressure 110/60 08/04/2016 4:41 PM CDT Pulse 66 08/04/2016 4:41 PM CDT Temperature - - Respiratory Rate 16 08/04/2016 4:41 PM CDT Oxygen Saturation - - Inhaled Oxygen Concentration - - Weight 74.5 kg (164 lb 3.9 oz) 08/04/2016 4:41 PM CDT Height 169 cm (5' 6.54) 08/04/2016 4:41 PM CDT Body Mass Index 26.08 08/04/2016 4:41 PM CDT documented in this encounter Medications at Time of Discharge Medication Sig Dispensed Refills Start Date End Date desogestrel-ethinyl Take 1 tablet by 0 04/15/2016 05/07/2017 estradiol (for_APRI) mouth daily. 0.15-0.03 mg per tablet documented as of this encounter Progress Notes Flores Muñiz M.D. - 08/04/2016 4:31 PM CDT [id number] CHIEF COMPLAINT/REASON FOR VISIT Sinus infection. HISTORY OF PRESENT ILLNESS Chandrika is a 21-year-old female who presents to the clinic today for sinus infection. Her primary care provider is Dr. Margarita Sanchez, Family Medicine. Last week Thursday, she thought she was developing the flu. She had abdominal discomfort but no nausea or vomiting. She then developed a cough yesterday. She has clear nasal discharge. She denies history of frequent sinusitis. She denies tobacco use. She has head pressure and headache. She also has ear discomfort. She had sore throat intermittently last week but this has been improving. She took Cold & Flu over the week and has been taking Tylenol as needed. 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 Some of her clients have been sick with cold and flu. She denies history of hay fever. Patient saw Raghavendra Menezes PA-C in February 2016 for sinus congestion and ear pain and given Cefdinir for sinusitis. She denies any side effects to that medication. I reviewed and updated her medication list. We discussed potential side effects. There are no additional questions, concerns, or complaints. MEDICATIONS Omnicef 300 mg by mouth twice a day for 10 days. Desogen 0.15 mg-0.03 mg 1 tablet by mouth daily. ALLERGIES Amoxicillin causing rash. SYSTEMS REVIEW Please see HPI for pertinent positives, otherwise rest of ROS negative. PAST MEDICAL/SURGICAL HISTORY Malabsorption. Dysmenorrhea. Status post tonsillectomy and adenoidectomy, 07/14/2006. PREVENTIVE SERVICES Tetanus booster: 04/04/2016. Influenza: 04/04/2016. SOCIAL HISTORY She denies tobacco or drug use. FAMILY HISTORY Reviewed and updated as per the EHR on 08/04/2016. VITAL SIGNS HEIGHT: 169 cm. WEIGHT: 74.5 kg. BMI: 26.08 kg/m2. TEMP: 36.8 Deg C. PULSE: 66 /min. RESP: 16 /min. O2SAT: 97 %. SYSTOLIC: 110 mmHg. DIASTOLIC: 60 mmHg. PHYSICAL EXAMINATION GENERAL: Patient is sitting. No distress. Able to talk without interruption. HEAD: No facial rash or asymmetry. She has bilateral maxillary and frontal sinus tenderness. EYES: PERRLA. EOMI. No pallor, icterus, or conjunctivitis. ENT: No nasal congestion, discharge, or bleeding. There is no ear infection or discharge. No mastoidtenderness. Tongue is moist and midline. No oral lesions. LYMPH NODES: No cervical or supraclavicular lymphadenopathy. HEART: No carotid bruit. No JVD. Regular rhythm. There is no S3, gallop, murmur, or thrill. LUNGS: Normal respiratory effort. Clear to auscultation. Normal percussion. EXTREMITIES: No clubbing, cyanosis, edema, infection, or calf tenderness. IMPRESSION/REPORT/PLAN Sinus congestion due to acute bilateral maxillary and frontal sinusitis. She has allergy to Amoxicillin. It was decided to treat with Omnicef 300 mg twice a day for 10 days, which she tolerated before.Patient was advised to drink plenty of fluids. She can take over the counter antihistamine either Zyrtec or Cristina or Claritin daily. She should contact the clinic if there is no improvement or worsening of symptoms or develops side effects to new prescription medication. This document serves as a record of services personally performed by Dr. Flores Muñiz. It was created on their behalf by Silviano Laguerre, a trained medical laboratory technician. The creation of this record is based on the scribe's personal observations and the provider's statements to them. This document has been checked and approved by the attending provider. Flores Muñiz M.D./mariela Electronically Signed By: FLORES MUÑIZ MD On: 08/07/2016 12:42 PM Modified by and Electronically Signed by: FLORES MUÑIZ MD On: 08/07/2016 12:42 PM Source: [facility] MHSDOLBEYNONRADSYS Document Id: [id number] documented in this encounter Miscellaneous Notes Miscellaneous - Flores Muñiz M.D. - 08/04/2016 4:56 PM CDT Ambulatory Patient Summary [address] [id number] Visit Information Name: LILLYRITESHISABEL PACHECO [facility] Number: [id number] Current Date: 08/04/2016 16:56:51 Physicians Attending Provider: FLORES MUÑIZ MD Primary Care Provider: MARGARITA PALAFOX MD [...] day x 10 day(s) New Routed to [address] [address] desogestrel-ethinyl estradiol (Desogen 0.15 mg-0.03 mg oral tablet) 1 Tablet(s), Oral, once a day Stop Taking the Following Medications: Medication list as of 08-04-16 16:56 Attention: If you have any medications at home that are not on this list, DO NOT take them until youcontact your provider for clarification. Give a copy of your medication list to your primary care provider. Update your medication list any time medications or doses are changed and carry your medication list at all times in case of emergency. Electronically Signed By: FLORES MUÑIZ MD Signed On:04-AUG-2016 16:56:44 Your Allergies & Intolerances Substance Reaction Symptoms [...] form. Youll be asked for your [facility] number which you can find at the top of this document. Your Goals/Additional instructions: Source: [facility] POWERCHART Document Id: [id number] Miscellaneous - Flores Muñiz M.D. - 08/04/2016 4:56 PM CDT Ambulatory Discharge Medication List [address] [id number] Visit Information Name: CHANDRIKA ESQUEDA [facility] Number: [id number] Current Date: 08/04/2016 16:56:51 Attending Provider: FLORES MUÑIZ MD Primary Care Provider: MARGARITA PALAFOX MD [...] day x 10 day(s) New Routed to [address] [id number] desogestrel-ethinyl estradiol (Desogen 0.15 mg-0.03 mg oral tablet) 1 Tablet(s), Oral, once a day Stop Taking the Following Medications: Medication list as of 08-04-16 16:56 Attention: If you have any medications at home that are not on this list, DO NOT take them until youcontact your provider for clarification. Give a copy of your medication list to your primary care provider. Update your medication list any time medications or doses are changed and carry your medication list at all times in case of emergency. Electronically Signed By: FLORES MUÑIZ MD Signed On:04-AUG-2016 16:56:44 Additional Information: Source: [facility] POWERCHART Document Id: [id number] Miscellaneous - Shraddha Machado C.M.A. - 08/04/2016 4:41 PM CDT Adult Twisthand Intake/History Adult Twisthand Intake/History Entered On: 08/04/2016 16:42 CDT Performed On: 08/04/2016 16:41 CDT by SHRADDHA MACHADO [facility] Intake Chief Complaint : 1: sinus infection Temperature Core : 36.8 DegC(Converted to: 98.2 DegF) Peripheral Pulse Rate : 66 /min Respiratory Rate : 16 /min Systolic Blood Pressure : 110 mmHg Diastolic Blood Pressure : 60 mmHg NIBP Mean : 77 mmHg BP Location : Left upper extremity Blood Pressure Cuff Size : Regular SpO2 : 97 % Oxygen Therapy : Room air Height : 169 cm(Converted to: 5 ft 7 inch(es), 67 inch(es)) Actual Weight : 74.5 kg(Converted to: 164 lb 4 oz) Weight Source : Standing scale Dosing Weight Clinic : 74.5 kg Prosthetic device on during patient weight : No Clinic BSA : 1.87 Body Mass Index : 26.08 kg/m2 SHRADDHA MACHADO CMA - 08/04/2016 16:41 CDT General Info Information Given By : Patient Languages : [place] Is Patient Female and 13-50 no hysterectomy : Yes Status : Patient denies Are you ? : No SHRADDHA MACHADO CMA - 08/04/2016 16:41 CDT Subjective Pain Symptoms : No SHRADDHA MACHADO CMA - 08/04/2016 16:41 CDT Dependent Habits Exposure to Tobacco Smoke : Other: Never Smoking Status : Never smoker Tobacco 2A : No Tobacco Use/Currently Using : No Tobacco Use/Last 30 Days : No Tobacco Use/Last 12 months : No Alcohol Use : No SHRADDHA MACHADO CMA - 08/04/2016 16:41 CDT Caffeine Use Grid Caffeine Use : Current Type : Chocolate, Soft drinks Frequency : Occasionally SHRADDHA MACHADO CMA - 08/04/2016 16:41 CDT Recreational Drug Use Grid Drug Use : None SHRADDHA MACHADO [facility] - 08/04/2016 16:41 CDT Source: [facility] [employer] Document Id: [id number] CDT!44 Miscellaneous - Shraddha Machado C.M.AJoshua - 08/04/2016 4:40 PM CDT Health Assessment Health Assessment Entered On: 08/04/2016 16:40 CDT Performed On: 08/04/2016 16:40 CDT by SHRADDHA MACHADO [facility] Health Assessment Complete Health Assessment Complete or Modified : Annual Health Assessment Annual Health Assessment Completed : Yes SHRADDHA MACHADO [facility] - 08/04/2016 16:40 CDT Nutrition Nutrition Risk Factors by History Adult : None SHRADDHA MACHADO [facility] - 08/04/2016 16:40 CDT Functional Current Daily Living Assistance : None SHRADDHA MACHADO [facility] - 08/04/2016 16:40 CDT Dependent Habits Exposure to Tobacco Smoke : Other: Never Smoking Status : Never smoker Tobacco 2A : No Tobacco Use/Currently Using : No Tobacco Use/Last 30 Days : No Tobacco Use/Last 12 months : No Alcohol Use : No SHRADDHA MACHADO [facility] 08/04/2016 16:40 CDT Caffeine Use Grid Caffeine Use : Current Type : Chocolate, Soft drinks Frequency : Occasionally SHRADDHA MACHADO [facility] - 08/04/2016 16:40 CDT Recreational Drug Use Grid Drug Use : None SHRADDHA MACHADO [facility] 08/04/2016 16:40 CDT Psychosocial Domestic Abuse Concerns : None Behavioral Health Screen/Safety Assmt : Unable to obtain Latter Day Preference : Unknown SHRADDHA MACHADO [facility] 08/04/2016 16:40 CDT Advance Directive Advanced Directives : No Advance Directive Additional Information : No SHRADDHA MACHADO [facility] 08/04/2016 16:40 CDT Educ Needs Learning Style Preference Adult Grid Patient : None, Demonstration, Printed materials, Verbal explanation Family : None, Demonstration, Printed materials, Verbal explanation SHRADDHA MACHADO [facility] - 08/04/2016 16:40 CDT Source: [facility] [employer] Document Id: [id number] CDT!35 documented in this encounter Plan of Treatment Not on filedocumented as of this encounter Visit Diagnoses Not on filedocumented in this encounter
--- OUTSIDE RECORDS SUMMARY | 2022-01-24 14:10 | XMS_ITS | Encounter Summary ---
:1995 Author Organization [facility] Address [address] [place] [address] Care Team Providers Name Role Phone Unavailable Primary Care Provider Unavailable Encounter Details Date Type Department Care Team Description 05/11/2012 Hospital Encounter HX [facility] FAMILY[facility] Margarita Barr i, M.D. [address] [place] [phone] (Wo rk) Social History Tobacco Use Types Packs/Day Years Used Date Smoking Tobacco: Never Assessed Sex Assigned at Date Recorded Female 07/27/2019 2:28 PM CDT documented as of this encounter Last Filed Vital Signs Vital Sign Reading Time Taken Comments Blood Pressure 100/60 05/11/2012 10:02 AM GREASE MAKER Pulse 52 05/11/2012 10:02 AM GREASE MAKER Temperature - - Respiratory Rate 16 05/11/2012 10:02 AM GREASE MAKER Oxygen Saturation - - Inhaled Oxygen Concentration - - Weight 62 kg (136 lb 11 oz) 05/11/2012 10:02 AM GREASE MAKER Height 173 cm (5' 8.11) 05/11/2012 10:02 AM GREASE MAKER Body Mass Index 20.72 05/11/2012 10:02 AM GREASE MAKER Body Mass Index Percentile 42.11 % 05/11/2012 10:[address] Growth Chart: CDC (Girls, 2-20 Years) documented in this encounter Progress Notes Margarita Skelton M.D. - 05/11/2012 9:56 AM CST [id number] CHIEF COMPLAINT/REASON FOR VISIT Rash HISTORY OF PRESENT ILLNESS Chandrika has developed some itching on her extremities. She has not recently been ill although did have influenza last month. She has been playing varsity basketball. She has noticed that she has somebruising over her sternum. She is unsure of how that would have occurred. CURRENT MEDICATIONS Reviewed and are as outlined in the EMR VITAL SIGNS HEIGHT is 173 cm WEIGHT is 62 kg TEMPERATURE 36.2 RESPIRATIONS 16 PULSE 52 BLOOD PRESSURE 100/60. PHYSICAL EXAMINATION GENERAL: She appears well and in no distress. ENT: TMs are normal. Oropharynx is without erythema or exudate. NECK: Without adenopathy. LUNGS: Clear. HEART: Regular rate and rhythm. EXTREMITIES: She has some salmon colored small macules. No vesicles or ulcerations are noted. SKIN: She does have a small amount of bruising over the xiphoid process. No other areas of bruising are noted on the chest, abdomen or extremities. IMPRESSION/REPORT/PLAN 1. Nonspecific skin rash, probably viral process. I would treat symptomatically. 2. Small area of bruising over the xiphoid. This is most likely secondary to occult trauma. Would continue to monitor Margarita Morrow M.D./mali DOCID: [id number] Electronically Signed By: MARGARITA MORROW MD On: 07/16/2012 06:24 PM [facility] Document Id: [id number] documented in this encounter Miscellaneous Notes Miscellaneous - Margarita Skelton M.D. - 05/11/2012 10:30 PM GREASE MAKER Ambulatory Patient Summary [address] [address] Visit Information Name: CHANDRIKA ESQUEDA [facility] Number: [id number] Current Date: 05/11/2012 22:30:26 Physicians Attending Provider: MARGARITA MORROW MD Primary Care Provider: MARGARITA MORROW MD Your Medications Here is a list of your medications. It is important to take your medications as directed. Use a pillbox or chart to help remind you to take your medications. Please let your doctor or nurse know if you have problems taking your medications. Medication/Strength Dose Route Frequency Indications/Special Instructions/Comments norgestimate-ethinyl estradiol (Mononessa 0.25 mg-35 mcg oral tablet) 1 tab(s) Oral once a day Pt requesting 90 days Attention: If you have any medications at home that are not on this list, DO NOT take them until youcontact your provider for clarification. Your Allergies & Intolerances Substance Reaction Symptoms Category Comments amoxicillin rash Drug Your Problem List Problem Status Onset Comments Malabsorption Active 02/15/2011 06/02/11 fructose / per [facility] Allergic reaction to drug, not elsewhere classified Active 06/03/2011 06/03/11 amoxicillin Your Upcoming Appointments Date Time Location Reason Provider No Appointments found Your Goals/Additional instructions: Source: [facility] POWERCHART Document Id: [id number] SE MAKER Miscellaneous - Margarita Skelton M.D. - 05/11/2012 10:30 PM GREASE MAKER Ambulatory Depart Summary [address] [address] Visit Information Name: CHANDRIKA ESQUEDA JUNIOR [facility] Number: [id number] Visit Date: 05/11/2012 22:30:25 Attending Provider: MARGARITA MORROW MD Primary Care Provider: MARGARITA MORROW MD LILLYCHANDRIKA JUNIOR has been given the following list of medications: Your Medications It is important to take your medications as directed. Use a pill box or chart to help remind you to take your medications. Please let your doctor or nurse know if you have problems taking your medications. Medication/Strength Dose Route Frequency Indications/Special Instructions/Comments norgestimate-ethinyl estradiol (Mononessa 0.25 mg-35 mcg oral tablet) 1 tab(s) Oral once a day Pt requesting 90 days Attention: If you have any medications at home that are not on this list, DO NOT take them until youcontact your provider for clarification. Additional Information: Source: [facility] POWERCHART Document Id: [id number] SE MAKER Miscellaneous - Conversion, Historical Provider Ser - 05/11/2012 10:02 AM GREASE MAKER Adult Management Intern Intake/History Adult Management Intern Intake/History Entered On: 05/11/2012 10:04 GREASE MAKER Performed On: 05/11/2012 10:02 GREASE MAKER by LOIS CASAS LPN Intake Chief Complaint : rash and itching Temperature Core : 36.2C(Converted to: 97.2DegF) (LOW) Peripheral Pulse Rate : 52/min (LOW) Respiratory Rate : 16/min Systolic Blood Pressure : 100mmHg Diastolic Blood Pressure : 60mmHg NIBP Mean : 73mmHg BP Location : Right upper extremity Blood Pressure Cuff Size : Regular Height : 173cm(Converted to: 5ft 8inch(es), 68.11inch(es)) Actual Weight : 62kg(Converted to: 136lb 11oz) Dosing Weight Clinic : 62.00kg Clinic BSA : 1.73 Body Mass Index : 20.72kg/m2 LOIS CASAS LPN - 05/11/2012 10:02 GREASE MAKER Subjective Pain Symptoms : No LOIS CASAS LPN - 05/11/2012 10:02 GREASE MAKER Dependent Habits Tobacco Use/Currently Using : No Exposure to Tobacco Smoke : Other: Never Smoking Status : Never smoker LOIS CASAS LPN - 05/11/2012 10:02 GREASE MAKER Tobacco Use Grid Last Use : never LOIS CASAS LPN - 05/11/2012 10:02 GREASE MAKER Caffeine Use Grid Caffeine Use : Current Type : Chocolate, Soft drinks Frequency : Occasionally LOIS CASAS LPN - 05/11/2012 10:02 GREASE MAKER Allergy Allergies (Active) amoxicillin Estimated Onset Date: <not entered> 06/03/2011 ; Reactions: rash ; Created By: PRICILA BEDOLLA CNP; Reaction Status: Active ; Category: Drug ; Substance: amoxicillin ; Type: Allergy ;Updated By: PRICILA BEDOLLA CNP; Reviewed Date: 05/11/2012 10:01 GREASE MAKER Source: [facility] NextSpace Document Id: [id number] documented in this encounter Plan of Treatment Not on filedocumented as of this encounter Visit Diagnoses Not on filedocumented in this encounter
--- OUTSIDE RECORDS SUMMARY | 2022-01-24 14:10 | XMS_ITS | Encounter Summary ---
:1995 Author Organization [facility] Address [address] [place] [address] Care Team Providers Name Role Phone Unavailable Primary Care Provider Unavailable Encounter Details Date Type Department Care Team Description 12/23/2012 Hospital Encounter HX [facility] Margarita Barr i, M.D. [address] [place] [phone] (Wo rk) Social History Tobacco Use Types Packs/Day Years Used Date Smoking Tobacco: Never Assessed Sex Assigned at Date Recorded Female 07/27/2019 2:28 PM CDT documented as of this encounter Last Filed Vital Signs Vital Sign Reading Time Taken Comments Blood Pressure 90/50 12/23/2012 11:16 AM CDT Pulse 100 12/23/2012 11:16 AM CDT Temperature - - Respiratory Rate 20 12/23/2012 11:16 AM CDT Oxygen Saturation - - Inhaled Oxygen Concentration - - Weight 59 kg (130 lb 1.1 oz) 12/23/2012 11:16 AM CDT Height 169 cm (5' 6.54) 12/23/2012 11:16 AM CDT Body Mass Index 20.66 12/23/2012 11:16 AM CDT Body Mass Index Percentile 39.02 % 12/23/2012 11:16 AM C DT Growth Chart: CDC (Girls, 2-20 Years) documented in this encounter Progress Notes Margarita Skelton M.D. - 12/23/2012 11:00 AM CDT [id number] CHIEF COMPLAINT/ REASON FOR VISIT Ear pain, sore throat. HISTORY OF PRESENT ILLNESS Chandrika is an 17 year old female who presents to the clinic with ear pain and a sore throat. She was recently diagnosed with mononucleosis on 12/13. She reports that she feels like there is a sore lump in her throat. She has some hearing loss her right ear. The patient denies any additional questionsor concerns at this time. CURRENT MEDICATIONS Post-visit Medication Reconciliation Reviewed and are as outlined in the EMR ALLERGIES Amoxicillin. SYSTEMS REVIEW See HPI. PAST MEDICAL/SURGICAL HISTORY MEDICAL HISTORY 1. Malabsorption SURGICAL HISTORY 1. Tonsillectomy and adenoidectomy. PREVENTIVE SERVICES: Tobacco use: None. VITAL SIGNS HEIGHT: 169 cm WEIGHT: 59 kg BMI: 20.66 kg/m2 TEMPERATURE: 36.6 DegC PULSE: 100 /min RESPIRATORY RATE: 20 /min BLOOD PRESSURE: 90 mmHg/50 mmHg PHYSICAL EXAM GENERAL: Patient is alert and oriented times three, in no acute distress, good hygiene and is dressed appropriately. ENT: Tympanic membranes are normal bilaterally. No fluid or infection noted. Oropharynx is without erythema or exudate. Inferior nasal turbinates are without injection. There appears to be some residual tonsillar tissue bilaterally. No exudate or erythema is noted. LYMPH NODES: Not palpably enlarged and no nodules are palpated. Enlarged lymph node high in the anterior cervical chain on the right. HEART: Regular rate and rhythm without murmur. LUNGS: Clear to auscultation. ABDOMEN: Soft and nontender with no masses. EXTREMITIES: Within normal limits. IMPRESSION/REPORT/PLAN 1. Recent mononucleosis: I think all of her symptoms today of ear fullness, sore throat, and fullness in her throat when swallowing are due to swollen lymphatic tissue from the mono. There is no airway compromise.This should resolve over time. Overall, she has improved significantly over the past week. 2. Follow up: The patient will contact the clinic with any new or worsening symptoms. This document serves as a record of services personally performed by Margarita Morrow MD. It was created on their behalf by Maria Luisa Rosales, a trained medical technologist prn. The creation of this record is based on the scribe's personal observations and the provider's statements to them. This document has been chalo cked and approved by the attending provider. Margarita Morrow M.D./burt Electronically Signed By: MARGARITA MORROW MD On: 12/26/2012 09:04 PM Modified by and Electronically Signed by: MARGARITA MORROW MD On: 12/26/2012 09:04 PM Source: [facility] MHSDOLBEYNONRADSYS Document Id: [id number] documented in this encounter Miscellaneous Notes Telephone Encounter - Conversion, Historical Provider Ser - 02/22/2014 8:51 AM CDT *Phone Message- Dr. Morrow Document Contains Addenda Addendum by DAYNA GARCIA on 22 February 2014 17:28:40 CDT patient's mother informed. Addendum by MARGARITA MORROW MD on 22 February 2014 17:19:54 CDT From: MARGARITA MORROW MD To: Laura Nurse; Sent: 02/22/2014 17:19:54 CDT Subject: RE: *Phone Message- Dr. Morrow done today. Addendum by SIRISHA GANNON on 22 February 2014 11:16:45 CDT From: SIRISHA GANNON ( Laura Nurse) To: MARGARITA MORROW MD; Sent: 02/22/2014 11:16:45 CDT Subject: FW: *Phone Message- Dr. Morrow Needs refill of TriSprintec. She is going to be home from college over the weekend and would like topick up. Since she goes to school in [place], she is unable to come in for an annual exam until she is on break. Please send rx to [facility]. From: BRENDEN LACEY To: STEPHANI Morrow Nurse; Sent: 02/22/2014 08:51:12 CDT Subject: *Phone Message- Dr. Morrow Caller is: ( ) Patient ( Oralia) Mother ( ) Father ( ) Spouse ( ) Daughter ( ) Son ( ) Pharmacy ( ) Other: Physician: Dr. Morrow Patient MRN #: Reason for Call: Message: S: Pt mom Oralia called clinic to talk to nurse B: has questions about med refill A: R: Please call Oralia at [phone] Advice/Action: Source used: ( ) Verbalizes understanding [...] back cell phone number ( ) Source: [facility] POWERCHART Document Id: [id number] Miscellaneous - Eloina Hyman, R.N. - 12/30/2012 8:51 AM CDT General Message-med refill Document Contains Addenda Addendum by MARGARITA MORROW MD on 30 December 2012 14:07:45 CDT From: MARGARITA MORROW MD To: ELOINA HYMAN; Sent: 12/30/2012 14:07:45 CDT Subject: RE: General Message-med refill new rx sent From: ELOINA HYMAN To: MARGARITA MORROW MD; Cc: LOIS CASAS LPN; Sent: 12/30/2012 08:51:53 CDT Subject: General Message-med refill Patient is going to college late this afternoon. She will not be back x 6 weeks. She can take every 8 hrs but has been typically taking one tab per day. This is working well for her. Can they get enough Zofran to last the 6 weeks? Source: [facility] POWERCHART Document Id: [id number] Electronically signed by Taryn [facility] Motion Study Analyst [id number] at 10/01/2016 3:12 AM CDT Saskia - Margarita Skelton M.D. - 12/23/2012 5:40 PM CDT Ambulatory Patient Summary [address] [address] Visit Information Name: CHANDRIKA ESQUEDA [facility] Number: [id number] Current Date: 12/23/2012 17:40:12 Physicians Attending Provider: MARGARITA MORROW MD Primary Care Provider: MARGARITA MORROW MD Your Medications Here is a list of your medications. It is important to take your medications as directed. Use a pillbox or chart to help remind you to take your medications. Please let your doctor or nurse know if you have problems taking your medications. Medication/Strength Dose Route Frequency Indications/Special Instructions/Comments/Notes norgestimate-ethinyl estradiol (Tri-Sprintec oral tablet) 1 tab(s) Oral once a day Attention: If you have any medications at home that are not on this list, DO NOT take them until youcontact your provider for clarification. Your Allergies & Intolerances Substance Reaction Symptoms Category Comments amoxicillin rash Drug Your Problem List Problem Status Onset Comments Malabsorption Active 02/15/2011 06/02/11 fructose / per [facility] Allergic reaction to drug, not elsewhere classified Active 06/03/2011 06/03/11 amoxicillin Your Upcoming Appointments Date Time Location Reason Provider No Appointments found Your Goals/Additional instructions: Source: [facility] POWERCHART Document Id: [id number] Saskai - Margarita Skelton M.D. - 12/23/2012 5:40 PM CDT Ambulatory Depart Summary [id number] [place] [address] Visit Information Name: CHANDRIKA ESQUEDA [facility] Number: [id number] Visit Date: 12/23/2012 17:40:11 Attending Provider: MARGARITA MORROW MD Primary Care Provider: MARGARITA MORROW MD CHANDRIKA ESQUEDA has been given the following list of medications: Your Medications It is important to take your medications as directed. Use a pill box or chart to help remind you to take your medications. Please let your doctor or nurse know if you have problems taking your medications. Medication/Strength Dose Route Frequency Indications/Special Instructions/Comments/Notes norgestimate-ethinyl estradiol (Tri-Sprintec oral tablet) 1 tab(s) Oral once a day Attention: If you have any medications at home that are not on this list, DO NOT take them until youcontact your provider for clarification. Additional Information: Source: [facility] POWERCHART Document Id: [id number] Miscellaneous - Conversion, Historical Provider Ser - 12/23/2012 11:16 AM CDT Adult Instrument Shop Supervisor Intake/History Adult Instrument Shop Supervisor Intake/History Entered On: 12/23/2012 11:20 CDT Performed On: 12/23/2012 11:16 CDT by LOIS CASAS LPN Intake Chief Complaint : recheck Temperature Core : 36.6 DegC(Converted to: 97.9 DegF) Peripheral Pulse Rate : 100 /min Respiratory Rate : 20 /min Systolic Blood Pressure : 90 mmHg (LOW) Diastolic Blood Pressure : 50 mmHg (LOW) NIBP Mean : 63 mmHg BP Location : Left upper extremity Blood Pressure Cuff Size : Regular Height : 169 cm(Converted to: 5 ft 7 inch(es), 66.54 inch(es)) Actual Weight : 59 kg(Converted to: 130 lb 1 oz) Dosing Weight Clinic : 59 kg Clinic BSA : 1.66 Body Mass Index : 20.66 kg/m2 LOIS CASAS [facility] - 12/23/2012 11:16 CDT General Info Information Given By : Patient Languages : Azerbaijani LOIS CASAS [facility] - 12/23/2012 11:16 CDT Subjective Pain Symptoms : Yes LOIS CASAS [facility] - 12/23/2012 11:16 CDT Pain Pain Assessment Grid Pain 1 Location : Ear Laterality : Right LOIS CASAS [facility] - 12/23/2012 11:16 CDT Dependent Habits Tobacco Use/Currently Using : No Exposure to Tobacco Smoke : Other: Never Smoking Status : Never smoker LOIS CASAS [facility] - 12/23/2012 11:16 CDT Tobacco Use Grid Last Use : never LOIS CASAS [facility] - 12/23/2012 11:16 CDT Caffeine Use Grid Caffeine Use : Current Type : Chocolate, Soft drinks Frequency : Occasionally LOIS CASAS [facility] - 12/23/2012 11:16 CDT Source: [facility] TrevenaCHART Document Id: [id number]!38 documented in this encounter Plan of Treatment Not on filedocumented as of this encounter Visit Diagnoses Not on filedocumented in this encounter
--- OUTSIDE RECORDS SUMMARY | 2022-01-24 14:10 | XMS_ITS | Encounter Summary ---
:1995 Author Organization [facility] [place] [address] Care Team Providers Name Role Phone Unavailable Primary Care Provider Unavailable Encounter Details Date Type Department Care Team Description 12/23/2011 Hospital Encounter [facility]X [facility] Zaynab Peterson M.D. [address] [place], [place] [phone] (Wo rk) Social History Tobacco Use Types Packs/Day Years Used Date Smoking Tobacco: Never Assessed Sex Assigned at Date Recorded Female 07/27/2019 2:28 PM CDT documented as of this encounter Plan of Treatment Not on filedocumented as of this encounter Visit Diagnoses Not on filedocumented in this encounter
--- OUTSIDE RECORDS SUMMARY | 2022-01-24 14:10 | XMS_ITS | Encounter Summary ---
:1995 Author Organization [facility] [place] [address] Care Team Providers Name Role Phone Unavailable Primary Care Provider Unavailable Encounter Details Date Type Department Care Team Description 12/23/2011 Hospital Encounter HX [facility] Zaynab Peterson M.D. [address] [place], [place] [phone] (Wo rk) Social History Tobacco Use Types Packs/Day Years Used Date Smoking Tobacco: Never Assessed Sex Assigned at Date Recorded Female 07/27/2019 2:28 PM CDT documented as of this encounter Plan of Treatment Not on filedocumented as of this encounter Procedures Procedure Name Priority Date/Time Associated Diagnosis Comme nts ENTERIC PATH RSLT Routine 12/23/2011 9:02 AM Resu lts for this CDT procedure are i n the results section. C DIFF SRCE Routine 12/23/2011 9:02 AM Results f or this CDT procedure are i n the results section. C. DIFFICILE TOXIN, Routine 12/23/2011 9:02 AM Re sults for this F CDT procedure are i n the results section. documented in this encounter Results HX-Enteric Path Rslt (12/23/2011 9:02 AM CDT) Patholo gist Method Time Signature Enteric See Comment POWERCHART Pathogens Culture, Stool Specimen (Source) Anatomical Collection Method Collection Time Re ceived Time Location / / Volume Laterality 12/23/2011 9:02 AM CDT Narrative POWERCHART - 12/27/2011 7:40 AM CDT SOURCE: STOOL ENTERIC PATHOGENS CULTURE, STOOL ? FINAL No growth of Salmonella, Shigella, Yersi amparo, Campylobacter, or Aeromonas. Test Performed by: [facility] [place] [address] Stick Puller: Ayad sow III, M.D. Historical Provider LAB HISTORICAL ORDERS Performing Organization Address [facility] Phon e Number POWERCHART C. difficile Toxin, F (12/23/2011 9:02 AM CDT) athologist Signature C. difficile Negative POWERCHART Toxin, F Specimen (Source) Anatomical Collection Method Collection Time Re ceived Time Location / / Volume Laterality 12/23/2011 9:02 AM CDT Narrative POWERCHART - 12/27/2011 7:40 AM CDT Laboratory developed test. Test Performed by: [facility] [place] [address] Stick Puller: Ayad sow III, M.D. Alicja Olivares M.D. LAB MICROBIOLOGY - GENERAL O RDERABLES Performing Organization Address [facility] Phon e Number POWERCHART HX-C diff Srce (12/23/2011 9:02 AM CDT) athologist Signature HXC diff Stool POWERCHART [facility]ce[place] Specimen (Source) Anatomical Collection Method Collection Time Re ceived Time Location / / Volume Laterality 12/23/2011 9:02 AM CDT Alicja Olivares M.D. LAB HISTORICAL ORDERS Performing Organization Address [facility] Phon e Number POWERCHART documented in this encounter Visit Diagnoses Not on filedocumented in this encounter
--- OUTSIDE RECORDS SUMMARY | 2022-01-24 14:10 | XMS_ITS | Encounter Summary ---
:[address] [facility] [place] [address] Care Team Providers Name Role Phone Unavailable Primary Care Provider Unavailable Encounter Details Date Type Department Care Team Description 12/23/[address] [facility] Zaynab Eli M.D. [address] [place], [place] [phone] (Wo rk) Social History Tobacco Use Types Packs/Day Years Used Date Smoking Tobacco: Never Assessed Sex Assigned at Date Recorded Female 07/27/2019 2:28 PM CDT documented as of this encounter Plan of Treatment Not on filedocumented as of this encounter Procedures Procedure Name Priority Date/Time Associated Diagnosis Comme nts DX ABDOMEN 1 VIEW Routine 12/23/2011 2:52 PM Resu lts for this CDT procedure are i n the results section. documented in this encounter Results DX Abdomen 1 View (12/23/2011 2:52 PM CDT) Anatomical Region Laterality Modality Abdomen N/A Radiographic Imaging Specimen (Source) Anatomical Collection Method Collection Time Re ceived Time Location / / Volume Laterality 12/23/2011 2:52 PM CDT Addenda Addendum by ProviderBro M.D. o n 12/23/2011 2:52 PM CDT RAD^^^OW XR Abdomen 1 View 12/23/2011 14:52:00 Addendum by ProviderBro M.D. o n 12/23/2011 2:52 PM CDT RAD^^^MA XR ABDOMEN 1 VIEW 12/23/2011 14:52:00 Impressions 12/23/2011 3:40 PM CDT Negative one view abdomen Narrative 12/23/2011 3:40 PM CDT EXAM: XR Abdomen 1 View INDICATION: Constipation NOS COMPARISON: None. FINDINGS: The visualized lung bases are clear. Unremarkable bowel gas pattern. No masses or calcifications. Bony structures are intact Procedure Note Duncan Camilo D.O. / Provider, Trino cavazos M.D. - 09/24/2016 EXAM: XR Abdomen 1 View INDICATION: Constipation NOS COMPARISON: None. FINDINGS: The visualized lung bases are clear. Unremarkable bowel gas pattern. No masses or calcifications. Bony structures are intact IMPRESSION: Negative one view abdomen Antonio Hammer(R)(M) IMG DIAGNOSTIC IMAGING PROCE DURKARLEE documented in this encounter Visit Diagnoses Not on filedocumented in this encounter
--- OUTSIDE RECORDS SUMMARY | 2022-01-24 14:10 | XMS_ITS | Encounter Summary ---
:1995 Author Organization [facility] [place] [address] Care Team Providers Name Role Phone Unavailable Primary Care Provider Unavailable Encounter Details Date Type Department Care Team Description 06/03/2011 Hospital Encounter HX [facility] Natalie Bedolla APRN, C.N.P. [address] [place] [id number] (Wo rk) Social History Tobacco Use Types Packs/Day Years Used Date Smoking Tobacco: Never Assessed Sex Assigned at Date Recorded Female 07/27/2019 2:28 PM CDT documented as of this encounter Last Filed Vital Signs Vital Sign Reading Time Taken Comments Blood Pressure 96/60 06/03/2011 1:52 PM [employer] Pulse 64 06/03/2011 1:52 PM [employer] Temperature - - Respiratory Rate 16 06/03/2011 1:52 PM [employer] Oxygen Saturation - - Inhaled Oxygen Concentration - - Weight - - Height - - Body Mass Index - - documented in this encounter Progress Notes Pricila Bedolla APRN, C.N.P. - 06/03/2011 12:00 AM CST [id number] CHIEF COMPLAINT/ REASON FOR VISIT Rash after two doses of amoxicillin HISTORY OF PRESENT ILLNESS Chandrika was seen yesterday with acute sinusitis. She had taken amoxicillin many times in the past. After dose last night and again one this morning she developed a pruritic rash on her trunk. Dad brought her back in today to check for mono that was negative CURRENT MEDICATIONS See depart summary from today ALLERGIES Amoxicillin. VITAL SIGNS See EMR PHYSICAL EXAM Well developed well nourished female in no acute distress. SKIN: Erythematous maculopapular rash on trunk rash is pruritic no vesicles or pustules or sign of infection. IMPRESSION/REPORT/PLAN Acute sinusitis with allergic reaction to amoxicillin. Discontinue amoxicillin. Start Zithromax Z Alfred continue to encourage fluids, take Tylenol for fever and discomfort may use Benadryl for the rash and recheck if symptoms do not improve SJM/clf Signed Pricila Bedolla, MSN, [employer], CDE Family Nurse Practitioner Electronically Signed By: PRICILA BEDOLLA CNP On: 06/04/2011 09:10 AM Source: [facility] MHSDOLBEYNONRADSYS Document Id: [id number] [employer] documented in this encounter Miscellaneous Notes Miscellaneous - Pricila Bedolla APRN, C.N.P. - 06/03/2011 2:16 PM CST Ambulatory Patient Summary [address] [address] Visit Information Name: CHANDRIKA ESQUEDA Current Date: 06/03/2011 14:16:56 Primary Care Provider: MARGARITA MORROW MD Your Medications Here is a list of your medications. It is important to take your medications as directed. Use a pillbox or chart to help remind you to take your medications. Please let your doctor or nurse know if you have problems taking your medications. 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 Here is a customized list of recommendations, based on information we have in your medical record. Your doctor may have additional recommendations for you, based on your personal medical history and risk factors. You can help us by calling us to make an appointment when you are due for your tests. Additional information regarding recommendations: Test/Treatment Last Done Next Due Additional Information Screening Chlamydia every 1 year Females Age 16-24 06/03/2011 Your Upcoming Appointments Date Time Location Reason Provider No Appointments found Your Goals/Additional instructions: Source: [facility] [employer] Document Id: [id number] [employer] Miscellaneous - Pricila Bedolla APRN, C.N.P. - 06/03/2011 2:16 PM CST Ambulatory Depart Summary [address] [address] Visit Information Name: CHANDRIKA ESQUEDA Current Date: 06/03/2011 14:16:55 Attending Provider: PRICILA BEDOLLA [facility] Primary Care Provider: MARGARITA MORROW MD CHANDRIKA ESQUEDA has been given the following list of medications: Your Medications It is important to take your medications as directed. Use a pill box or chart to help remind you to take your medications. Please let your doctor or nurse know if you have problems taking your medications. 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 Entered On: 06/03/2011 13:53 [employer] Performed On: 06/03/2011 13:52 [employer] by GEO CHAVIS Intake Chief Complaint : mono test Temperature Core : 36.8C(Converted to: 98.2DegF) Peripheral Pulse Rate : 64/min Respiratory Rate : 16/min Heart Rhythm : Regular Systolic Blood Pressure : 96mmHg Diastolic Blood Pressure : 60mmHg NIBP Mean : 72mmHg BP Location : Left upper extremity Blood Pressure Cuff Size : Regular GEO CHAVIS 06/03/2011 13:52 [employer] Subjective Pain Symptoms : No GEO CHAVIS 06/03/2011 13:52 [employer] Dependent Habits Tobacco Use/Currently Using : No Exposure to Tobacco Smoke : Other: Never Smoking Status : Never smoker GEO CHAVIS 06/03/2011 13:52 [employer] Allergy Allergies (Active) NKA Estimated Onset Date: Unspecified ; Created By: LORE ALEGRIA RN; Reaction Status: Active; Category: Drug ; Substance: NKA ; Type: Allergy ; Updated By: LORE ALEGRIA RN; Reviewed Date: 06/02/2011 15:25 [employer] Source: [facility] [employer] Document Id: [id number] [employer]!18 documented in this encounter Plan of Treatment Not on filedocumented as of this encounter Visit Diagnoses Not on filedocumented in this encounter
--- OUTSIDE RECORDS SUMMARY | 2022-01-24 14:10 | XMS_ITS | Encounter Summary ---
:1995 Author Organization [facility] [place] [address] Care Team Providers Name Role Phone Unavailable Primary Care Provider Unavailable Encounter Details Date Type Department Care Team Description 04/13/2012 Hospital Encounter HX [facility] Kaitlynn Gonzales M.D. Social History Tobacco Use Types Packs/Day Years Used Date Smoking Tobacco: Never Assessed Sex Assigned at Date Recorded Female 07/27/2019 2:28 PM CDT documented as of this encounter Last Filed Vital Signs Vital Sign Reading Time Taken Comments Blood Pressure 110/58 04/13/2012 3:51 PM [employer] Pulse 72 04/13/2012 3:51 PM [employer] Temperature - - Respiratory Rate 16 04/13/2012 3:51 PM [employer] Oxygen Saturation - - Inhaled Oxygen Concentration - - Weight 60 kg (132 lb 4.4 oz) 04/13/2012 3:51 PM [employer] Height 173 cm (5' 8.11) 04/13/2012 3:51 PM [employer] Body Mass Index 20.05 04/13/2012 3:51 PM [employer] Body Mass Index Percentile 33.08 % 04/13/2012 3:51 PM CS T Growth Chart: CDC (Girls, 2-20 Years) documented in this encounter Progress Notes Robert Gonzales M.D. - 04/13/2012 3:46 PM CST [id number] CHIEF COMPLAINT/REASON FOR VISIT Been sick for last 3 days. HISTORY OF PRESENT ILLNESS This 17-year-old girl had a flu shot 4 days ago. She felt somewhat sick the day afterwards. There has been influenza and whooping cough in her school. She developed fever 2 days ago sore throat both ears hurt left greater than right. She states the whole school is sick 61 out of 200 kids were out of school the other day. Influenza B prevalent in the community along with whooping cough pertussis. EMR record reviewed and updated. SYSTEMS REVIEW RESPIRATORY: As above. CARDIOVASCULAR: No palpitation of the heart, no chest pain. GI: No nausea, vomiting, diarrhea, constipation or recent change in weight. : No dysuria, no hematuria. All other systems reviewed and negative, except as mentioned above. PHYSICAL EXAMINATION SKIN: Clear. EYES: Pupils equal, round, react to light and accommodation; EOMs full; lids normal. ENT: Ears: TMs clear; external auditory canals clear. Throat mild erythema pearly appearance suggestive of influenza. LYMPH NODES: Neck: no lymphadenopathy. THYROID: Normal size, symmetric. HEART: No murmur, gallop or rub; normal size; PMI arteries normal. LUNGS: Clear to percussion and auscultation, normal to inspection, no retractions, no dyspnea. ABDOMEN: No masses, no organomegaly, nontender; normal to inspection, percussion and palpation; no distention. EXTREMITIES: Legs: no edema. IMPRESSION/REPORT/PLAN Feel the patient has influenza. Influenza test was done and influenza B test was positive. Will place her on Tamiflu 75 mg twice for 5 days. Stay home from school do not taking aspirin rest and return to activities as tolerated. Recheck with me as needed Robert Gonzales M.D./mali Electronically Signed By: ROBERT GONZALES MD On: 04/14/2012 12:20 PM Source: [facility] MHSDOLBEYNONRADSYS Document Id: [id number] [employer] documented in this encounter Miscellaneous Notes Miscellaneous - Robert Gonzales M.D. - 04/13/2012 4:54 PM CST Ambulatory Patient Summary [address] [address] Visit Information Name: CHANDRIKA ESQUEDA [facility] Number: [id number] Current Date: 04/13/2012 16:54:44 Physicians Attending Provider: ROBERT GONZALES MD Primary Care Provider: MARGARITA MORROW MD Your Medications Here is a list of your medications. It is important to take your medications as directed. Use a pillbox or chart to help remind you to take your medications. Please let your doctor or nurse know if you have problems taking your medications. Medication/Strength Dose Route Frequency Indications/Special Instructions/Comments oseltamivir (Tamiflu 75 mg oral capsule) 75 mg Oral two times a day for 5 Days norgestimate-ethinyl estradiol (Mononessa 0.25 mg-35 mcg oral [...] Malabsorption Active 02/15/2011 06/02/11 fructose / per [facility] Allergic reaction to drug, not elsewhere classified Active 06/03/2011 06/03/11 amoxicillin Your Upcoming Appointments Date Time Location Reason Provider 04/22/2012 08:00 [facility] Ophth check up Barbara RAMIREZ, Stephen Chamberlain Your Goals/Additional instructions: Source: [facility] POWERCHART Document Id: [id number] [employer] Miscellaneous - Robert Gonzales M.D. - 04/13/2012 4:54 PM CST Ambulatory Depart Summary [address] [address] Visit Information Name: CHANDRIKA ESQUEDA [facility] Number: [id number] Visit Date: 04/13/2012 16:54:43 Attending Provider: ROBERT GONZALES MD Primary Care Provider: MARGARITA MORROW MD LILLYCHANDRIKA has been given the following list of medications: Your Medications It is important to take your medications as directed. Use a pill box or chart to help remind you to take your medications. Please let your doctor or nurse know if you have problems taking your medications. Medication/Strength Dose Route Frequency Indications/Special Instructions/Comments oseltamivir (Tamiflu 75 mg oral capsule) 75 mg Oral two times a day for 5 Days norgestimate-ethinyl estradiol (Mononessa 0.25 mg-35 mcg oral tablet) 1 tab(s) Oral once a day Pt requesting 90 days Attention: If you have any medications at home that are not on this list, DO NOT take them until youcontact your provider for clarification. 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 Entered On: 04/13/2012 15:54 [employer] Performed On: 04/13/2012 15:51 [employer] by RAMILA VIVAR Intake Chief Complaint : Check throat, ears Temperature Core : 36.7C(Converted to: 98.1DegF) Peripheral Pulse Rate : 72/min Respiratory Rate : 16/min Systolic Blood Pressure : 110mmHg Diastolic Blood Pressure : 58mmHg NIBP Mean : 75mmHg BP Location : Left upper extremity Blood Pressure Cuff Size : Regular Height : 173cm(Converted to: 5ft 8inch(es), 68.11inch(es)) Actual Weight : 60kg(Converted to: 132lb 4oz) Dosing Weight Clinic : 60.00kg Clinic BSA : 1.70 Body Mass Index : 20.05kg/m2 GHAZALA, RAMILA Cleve - 04/13/2012 15:51 [employer] Subjective Pain Symptoms : Yes RAMILA VIVAR - 04/13/2012 15:51 [employer] Pain Pain Assessment Grid Pain 1 Location : Throat RAMILA VIVAR - 04/13/2012 15:51 [employer] Dependent Habits Tobacco Use/Currently Using : No Exposure to Tobacco Smoke : Other: Never Smoking Status : Never smoker GHAZALA RAMILA Cleve - 04/13/2012 15:51 [employer] Tobacco Use Grid Last Use : never RAMILA VIVAR - 04/13/2012 15:51 [employer] Caffeine Use Grid Caffeine Use : Current Type : Chocolate, Soft drinks Frequency : Occasionally RAMILA VIVAR - 04/13/2012 15:51 [employer] Allergy Allergies (Active) amoxicillin Estimated Onset Date: <not entered> 06/03/2011 ; Reactions: rash ; Created By: PRICILA BEDOLLA CNP; Reaction Status: Active ; Category: Drug ; Substance: amoxicillin ; Type: Allergy ;Updated By: PRICILA BEDOLLA CNP; Reviewed Date: 04/13/2012 15:50 [employer] Source: [facility] POWERCHART Document Id: [id number] documented in this encounter Plan of Treatment Not on filedocumented as of this encounter Procedures Procedure Name Priority Date/Time Associated Diagnosis Comme nts INFLUENZA A/B Routine 04/13/2012 4:37 PM Results for this [employer] procedure are i n the results section . documented in this encounter Results (ABNORMAL) Influenza A/B (04/13/2012 4:37 PM [employer]) [facility] Method Time Signature HXInfluenza A (POSITIVE POWERCHART and B AG ) Comment: If result is negative: The sensitivity/specificity of the Influ lorri A screening test is 80% and 93% respectively. The sensitivity/specificity of the Influ lorri B screening test is 65% and 97% respectively. If further testing is indicated, please call the laboratory to order the referred MML PCR test. HXFinal Positive for Influenzae B protein antigen. POWERCHART HXFinal This result does not identify any specific Influenzae B POWERCHART virus subtype. HXFinal Negative for Influenzae A protein antigen. POWERCHART HXFinal Reference: Negative for Influenzae A and Influenzae B POWERCHART protein antigens. Specimen (Source) Anatomical Collection Method Collection Time Re ceived Time Location / / Volume Laterality Nasal 04/13/2012 4:37 PM [employer] Robert Gonzales M.D. LAB MICROBIOLOGY - GENERAL O RDERABLES Performing Organization Address City/State/ZIP Code Phon e Number POWERCHART documented in this encounter Visit Diagnoses Not on filedocumented in this encounter
--- OUTSIDE RECORDS SUMMARY | 2022-01-24 14:10 | XMS_ITS | Encounter Summary ---
:1995 Author Organization [facility] [place] [address] Care Team Providers Name Role Phone Unavailable Primary Care Provider Unavailable Encounter Details Date Type Department Care Team Description 01/08/2012 Hospital Encounter HX RST EMERGENCY Provider, Historic al TRAUMA UNI Social History Tobacco Use Types Packs/Day Years Used Date Smoking Tobacco: Never Assessed Sex Assigned at Date Recorded Female 07/27/2019 2:28 PM CDT documented as of this encounter Last Filed Vital Signs Vital Sign Reading Time Taken Comments Blood Pressure - - Pulse - - Temperature - - Respiratory Rate - - Oxygen Saturation - - Inhaled Oxygen Concentration - - Weight 59.2 kg (130 lb 8.2 oz) 01/08/2012 6:24 PM CDT Height 172 cm (5' 7.72) 01/08/2012 6:24 PM CDT Body Mass Index 20.55 01/21/2012 9:17 AM CDT Body Mass Index Percentile 41.03 % 01/26/2012 10:19 AM C DT Growth Chart: [facility] (Girls, 2-20 Years) documented in this encounter Plan of Treatment Not on filedocumented as of this encounter Procedures Procedure Name Priority Date/Time Associated Comments Diagnosis NM GASTRIC EMPTYING Routine 02/23/2012 1:18 Resul ts for this SOLID PM CDT procedure are i n the results section. US ABDOMEN COMPLETE Routine 01/27/2012 11:24 Resu lts for this AM CDT procedure are i n the results section. CT HEAD WITHOUT IV Routine 01/26/2012 12:21 Resul ts for this CONTRAST PM CDT procedure are i n the results section. CBC WITH DIFFERENTIAL, B Routine 01/26/2012 11:52 Results for this AM CDT procedure are i n the results section. GLUCOSE, FASTING, S/P Routine 01/26/2012 11:52 Re sults for this AM CDT procedure are i n the results section. SEDIMENTATION RATE, B Routine 01/26/2012 11:51 Re sults for this AM CDT procedure are i n the results section. C-REACTIVE PROTEIN Routine 01/26/2012 11:51 Resul ts for this (CRP), S/P AM CDT procedure are i n the results section. BUN (BLOOD UREA Routine 01/26/2012 11:51 Results for this NITROGEN), S/P AM CDT procedure are in the results section. ALANINE AMINOTRANSFERASE Routine 01/26/2012 11:51 Results for this (ALT), S/P AM CDT procedure are i n the results section. ASPARTATE Routine 01/26/2012 11:51 Results for this AMINOTRANSFERASE (AST), AM CDT proc edure are in S/P the results section. THYROID-STIMULATING Routine 01/26/2012 11:51 Resu lts for this HORMONE-SENSITIVE AM CDT procedure are in (S-TSH) the results section. T4 (THYROXINE), FREE, S Routine 01/26/2012 11:51 Results for this AM CDT procedure are i n the results section. SODIUM, S/P Routine 01/26/2012 11:51 Results for this AM CDT procedure are i n the results section. POTASSIUM, S/P Routine 01/26/2012 11:51 Results f or this AM CDT procedure are i n the results section. ALKALINE PHOSPHATASE, Routine 01/26/2012 11:51 Re sults for this S/P AM CDT procedure are i n the results section. LIPASE, S/P Routine 01/26/2012 11:51 Results for this AM CDT procedure are i n the results section. GAMMA-GLUTAMYLTRANSFERAS Routine 01/26/2012 11:51 Results for this E (GGT), S/P AM CDT procedure are i n the results section. CREATININE WITH EGFR, Routine 01/26/2012 11:51 Re sults for this S/P AM CDT procedure are i n the results section. CHLORIDE, S/P Routine 01/26/2012 11:51 Results fo r this AM CDT procedure are i n the results section. BICARBONATE, B/S/P Routine 01/26/2012 11:51 Resul ts for this AM CDT procedure are i n the results section. BILIRUBIN DIRECT, S/P Routine 01/26/2012 11:51 Re sults for this AM CDT procedure are i n the results section. BILIRUBIN, TOT, S/P Routine 01/26/2012 11:51 Resu lts for this AM CDT procedure are i n the results section. AMYLASE, TOT, S Routine 01/26/2012 11:51 Results for this AM CDT procedure are i n the results section. AMMONIA Routine 01/26/2012 11:51 Results for this AM CDT procedure are i n the results section. HXGENERAL PATHOLOGY Routine 01/21/2012 11:34 Resu lts for this REPORT AM CDT procedure are i n the results section. HXGENERAL PATHOLOGY Routine 01/21/2012 11:32 Resu lts for this REPORT AM CDT procedure are i n the results section. SEDIMENTATION RATE, B Routine 01/21/2012 10:28 Re sults for this AM CDT procedure are i n the results section. CBC WITH DIFFERENTIAL, B Routine 01/21/2012 10:28 Results for this AM CDT procedure are i n the results section. C-REACTIVE PROTEIN Routine 01/21/2012 10:28 Resul ts for this (CRP), S/P AM CDT procedure are i n the results section. ALANINE AMINOTRANSFERASE Routine 01/21/2012 10:28 Results for this (ALT), S/P AM CDT procedure are i n the results section. ASPARTATE Routine 01/21/2012 10:28 Results for this AMINOTRANSFERASE (AST), AM CDT proc edure are in S/P the results section. IMMUNOGLOBULIN A (IGA), Routine 01/21/2012 10:28 Results for this S AM CDT procedure are i n the results section. BILIRUBIN, TOT, S/P Routine 01/21/2012 10:28 Resu lts for this AM CDT procedure are i n the results section. documented in this encounter Results NM Gastric Emptying Solid (02/23/2012 1:18 PM CDT) Anatomical Region Laterality Modality Abdomen N/A Nuclear Medicine Specimen (Source) Anatomical Collection Method Collection Time Re ceived Time Location / / Volume Laterality 02/23/2012 1:18 PM CDT Impressions 02/23/2012 2:37 PM CDT Normal gastric emptying. ?? FINDINGS: ?? Percent emptied from the stomach followi ng a technetium labeled meal was: 1 hr ??21% (normal 11-39%) 2 hr ??65%(normal 40-76%) 4 hr ??94%(normal 84-98%) SR999 Route: Oral RadNuc 99MTC-Sulf Col, 0.5 millicurie Electronically signed by: ?? Anmol Whitley MD [phone] 23-Feb-2012 14:37 ?Harris Stevens MD [phone] 23-Feb-2012 14:37 Narrative 02/23/2012 2:37 PM CDT 23-Feb-2012 13:18:00 ??Exam: NM Gastric Emptying Aviva or Liq Indications: Bloating Abdominal;Pain Abd ominal NOS ORIGINAL REPORT - 23-Feb-2012 14:37:00 EXAM: Nuclear medicine gastric emptying study INDICATION: Abdominal pain; bloating COMPARISON: None Procedure Note Anmol Whitley M.D. - 08/01/2017Form atting of this note might be different from the original. 23-Feb-2012 13:18:00 Exam: NM Gastric Em ptying Aviva or Liq Indications: Bloating Abdominal;Pain Abd ominal NOS ORIGINAL REPORT - 23-Feb-2012 14:37:00 EXAM: Nuclear medicine gastric emptying study INDICATION: Abdominal pain; bloating COMPARISON: None IMPRESSION: Normal gastric emptying. FINDINGS: Percent emptied from the stomach followi ng a technetium labeled meal was: 1 hr 21% (normal 11-39%) 2 hr 65%(normal 40-76%) 4 hr 94%(normal 84-98%) SR999 Route: Oral RadNuc 99MTC-Sulf Col, 0.5 millicurie Electronically signed by: Anmol Whitley MD [phone] 23-Feb-2012 14:37 Harris Stevens MD [phone] 23-Feb-2012 14:37 Alicja Olivares M.D. IMG NM PROCEDURES US Abdomen Complete (01/27/2012 11:24 AM CDT) Anatomical Region Laterality Modality Abdomen N/A Ultrasound Specimen (Source) Anatomical Collection Method Collection Time Re ceived Time Location / / Volume Laterality 01/27/2012 11:24 AM CDT Narrative 01/27/2012 11:49 AM CDT 27-Jan-2012 11:24:00 ??Exam: US Abdomen Complete Indications: nausea;pain abdominal ORIGINAL REPORT - 27-Jan-2012 11:49:00 Abdominal Ultrasound: ?? Liver:...............Normal. Spleen:..............Normal. Gallbladder:.........Normal. Intrahepatic ducts...Not dilated. Common Duct:........ Not dilated. Pancreas:............Normal where seen. ?? Right Kidney:........Normal 10 cm Left Kidney:.........Normal 10 cm Aorta:...............Normal caliber. ?? IVC..................Normal where seen. Electronically signed by: ?? Purnima Cerda MD [phone] 27-Jan-2012 11:49 ?Jean Carlos Fine MD. ??27-Jan-2012 11:49 Procedure Note Migue Fine M.D. - 08/01/2017Format ting of this note might be different from the original. 27-Jan-2012 11:24:00 Exam: US Abdomen Co mplete Indications: nausea;pain abdominal ORIGINAL REPORT - 27-Jan-2012 11:49:00 Abdominal Ultrasound: Liver:...............Normal. Spleen:..............Normal. Gallbladder:.........Normal. Intrahepatic ducts...Not dilated. Common Duct:........ Not dilated. Pancreas:............Normal where seen. Right Kidney:........Normal 10 cm Left Kidney:.........Normal 10 cm Aorta:...............Normal caliber. IVC..................Normal where seen. Electronically signed by: Purnima Cerda MD [phone] 27-Jan-2012 11:49 Jean Carlos Fine MD. [id number] 27-Jan-2012 11:49 Alicja Olivares M.D. IMG US PROCEDURES CT Head without IV Contrast (01/26/2012 12:21 PM CDT) Anatomical Region Laterality Modality Head N/A Computed Tomography Specimen (Source) Anatomical Collection Method Collection Time Re ceived Time Location / / Volume Laterality 01/26/2012 12:21 PM CDT Narrative 01/26/2012 12:38 PM CDT 26-Jan-2012 12:21:00 ??Exam: CT Head wo Indications: nausea;pain abdominal ORIGINAL REPORT - 26-Jan-2012 12:38:00 EXAM: CT scan of the Head without IV con trast: COMPARISON: None FINDINGS: No evidence of acute infarctio n or hemorrhage. Patent basilar cisterns. Mild inferior right maxillary sinus polypoid mucosal thickening. [id number] Electronically signed by: ?? Joan Sanchez MD [phone] 26-Jan-2012 12:38 Procedure Note Castillo Sanchez M.D. - 08/01/2017Formatt ing of this note might be different from the original. 26-Jan-2012 12:21:00 Exam: CT Head wo Indications: nausea;pain abdominal ORIGINAL REPORT - 26-Jan-2012 12:38:00 EXAM: CT scan of the Head without IV con trast: COMPARISON: None FINDINGS: No evidence of acute infarctio n or hemorrhage. Patent basilar cisterns. Mild inferior right maxillary sinus polypoid mucosal thickening. [id number] Electronically signed by: Joan Sanchez MD [phone] 26-Jan-2012 12:38 Alicja Olivares M.D. IMG CT PROCEDURES (ABNORMAL) CBC with Differential (01/26/2012 11:52 AM CDT) [facility] Method Time Signature Hemoglobin 13.0 12.0 - [facility] 15.5 G/DL LABORATORIES - [facility] Hematocrit 39.4 34.9 - [facility] 44.5 % LABORATORIES - [facility] RBC Distrib 12.4 11.9 - [facility] Width 15.5 % [facility] Platelet Count 219 150 - 450 [facility] X10(9)/L LABORATORIES [facility] Leukocytes 5.6 3.5 - [facility] 10.5 LABORATORIES - X10(9)/L [facility] Neutrophils 3.69 1.70 - [facility] 7.00 LABORATORIES - X10(9)/L [facility] Lymphocytes 1.55 0.90 - [facility] 2.90 LABORATORIES - X10(9)/L [facility] Monocytes 0.23 (L) 0.30 - [facility] 0.90 LABORATORIES - X10(9)/L [facility] Erythrocytes 4.39 3.90 - [facility] 5.03 LABORATORIES - X10(12)/L [facility] MCV 89.7 81.6 - [facility] 98.3 FL LABORATORIES - [facility] Eosinophils 0.08 0.05 - [facility] 0.50 LABORATORIES - X10(9)/L [facility] Basophils 0.01 0.00 - [facility] 0.30 LABORATORIES - X10(9)/L [facility] Specimen Anatomical Collection Method Collection Time Receive d Time (Source) Location / / Volume Laterality 01/26/2012 11:52 01/26/2012 AM CDT 11:52 AM CDT Alicja Olivares M.D. LAB BLOOD ADD-ON Performing Organization Address City/State/ZIP Code Phon e Number [facility] LABORATORIES - [address] [address] [facility] Glucose, Fasting (01/26/2012 11:52 AM CDT) P athologist Signature Last Intake [address] [facility] Glucose, P 87 70 - 100 [facility] MG/DL [facility] - [facility] Specimen Anatomical Collection Method Collection Time Receive d Time (Source) Location / / Volume Laterality 01/26/2012 11:52 01/26/2012 AM CDT 11:52 AM CDT Alicja Olivares M.D. LAB BLOOD NON ADD-ON Performing Organization Address City/State/[facility] Code Phon e Number [facility] LABORATORIES - [address] [place] [address] [facility] GGT (Gamma-Glutamyltransferase) (01/26/2012 11:51 AM CDT) Component Value Ref Test Analysis Performed At Patholo gist Range Method Time Signature Gamma 12 6 - 29 [facility] Glutamyltransferase U/L LABORATORI ES - (GGT), S [facility] Specimen Anatomical Collection Method Collection Time Receive d Time (Source) Location / / Volume Laterality 01/26/2012 11:51 01/26/2012 AM CDT 11:51 AM CDT Alicja Olivares M.D. LAB BLOOD ADD-ON Performing Organization Address City/State/ZIP Code Phon e Number [facility] LABORATORIES - [address] [address] [facility] Bilirubin, Total (01/26/2012 11:51 AM CDT) athologist Signature Bilirubin, 0.3 0.1 - 1.0 [facility] Total, S MG/DL [facility] Specimen Anatomical Collection Method Collection Time Receive d Time (Source) Location / / Volume Laterality 01/26/2012 11:51 01/26/2012 AM CDT 11:51 AM CDT Alicja Olivares M.D. LAB BLOOD ADD-ON Performing Organization Address City/[facility]/ZIP Code Phon e Number [facility] - [address] [address] [facility] Amylase, Total (01/26/2012 11:51 AM CDT) athologist Signature Amylase, 63 21 - 110 [facility] Total, S U/L [facility] Specimen Anatomical Collection Method Collection Time Receive d Time (Source) Location / / Volume Laterality 01/26/2012 11:51 01/26/2012 AM CDT 11:51 AM CDT Alicja Olivares M.D. LAB BLOOD ADD-ON Performing Organization Address City/[facility]/ZIP Code Phon e Number [facility] - [address] [address] [facility] Chloride (01/26/2012 11:51 AM CDT) athologist Signature Chloride, S 105 102 - 112 [facility] MMOL/L [facility] Specimen Anatomical Collection Method Collection Time Receive d Time (Source) Location / / Volume Laterality 01/26/2012 11:51 01/26/2012 AM CDT 11:51 AM CDT Alicja Olivares M.D. LAB BLOOD ADD-ON Performing Organization Address City/[facility]/ZIP Code Phon e Number [facility] - [address] [address] [facility] Lipase (01/26/2012 11:51 AM CDT) athologist Signature Lipase, S 29 10 - 73 U/L [facility] Specimen Anatomical Collection Method Collection Time Receive d Time (Source) Location / / Volume Laterality 01/26/2012 11:51 01/26/2012 AM CDT 11:51 AM CDT Alicja Olivares M.D. LAB BLOOD ADD-ON Performing Organization Address City/[facility]/ZIP Code Phon e Number [facility] LABORATORIES - [address] [address] [facility] ALT (Alanine Aminotransferase) (01/26/2012 11:51 AM CDT) [facility] gist Method Time Signature Alanine 11 7 - 45 [facility] Aminotransferase U/L LABORATORIES - (ALT), [facility] Specimen Anatomical Collection Method Collection Time Receive d Time (Source) Location / / Volume Laterality 01/26/2012 11:51 01/26/2012 AM CDT 11:51 AM CDT Alicja Olivares M.D. LAB BLOOD ADD-ON Performing Organization Address City/[facility]/ZIP Code Phon e Number [facility]ATORIES - [address] [address] [facility] Ammonia Level, Plasma (01/26/2012 11:51 AM CDT) P athologist Signature Ammonia, B <10 <50 MCG [facility] N/DL [facility]ATORIES - [facility] Specimen Anatomical Collection Method Collection Time Receive d Time (Source) Location / / Volume Laterality 01/26/2012 11:51 01/26/2012 AM CDT 11:51 AM CDT Alicja Olivares M.D. LAB BLOOD NON ADD-ON Performing Organization Address City/[facility]/ZIP Code Phon e Number [facility]IES - [address] [address] [facility] T4 (Thyroxine), Free (01/26/2012 11:51 AM CDT) [facility] gist Method Time Signature T4 1.3 SeeComment [facility] (Thyroxine), NG/DL LABORATORIES - Free, [facility] Comment: Reference Range: ? 0.8-1.8 ? Elevated values are seen in ? patients on thyroxine therapy. ? Specimen Anatomical Collection Method Collection Time Receive d Time (Source) Location / / Volume Laterality 01/26/2012 11:51 01/26/2012 AM CDT 11:51 AM CDT Alicja Olivares M.D. LAB BLOOD ADD-ON Performing Organization Address City/State/ZIP Code Phon e Number [facility] LAB[facility]ATORIES - [address] [address] [facility] Potassium (01/26/2012 11:51 AM CDT) P athologist Signature Potassium, S 4.7 3.6 - 5.2 [facility] MMOL/L [facility] Specimen Anatomical Collection Method Collection Time Receive d Time (Source) Location / / Volume Laterality 01/26/2012 11:51 01/26/2012 AM CDT 11:51 AM CDT Alicja Olivares M.D. LAB BLOOD ADD-ON Performing Organization Address City/[facility]/ZIP Code Phon e Number [facility]IES - [address] [address] [facility] Sodium (01/26/2012 11:51 AM CDT) P athologist Signature Sodium, S 141 135 - 145 [facility] MMOL/L [facility] Specimen Anatomical Collection Method Collection Time Receive d Time (Source) Location / / Volume Laterality 01/26/2012 11:51 01/26/2012 AM CDT 11:51 AM CDT Alicja Olivares M.D. LAB BLOOD ADD-ON Performing Organization Address City/State/ZIP Code Phon e Number [facility]IES - [address] [address] [facility] Creatinine with Estimated GFR (MDRD) (01/26/2012 11:51 AM CDT) P athologist Signature Creatinine 0.8 0.6 - 1.1 [facility] MG/DL [facility] Specimen Anatomical Collection Method Collection Time Receive d Time (Source) Location / / Volume Laterality 01/26/2012 11:51 01/26/2012 AM CDT 11:51 AM CDT Alicja Olivares M.D. LAB BLOOD ADD-ON Performing Organization Address City/[facility]/ZIP Code Phon e Number [facility]IES - [address] [address] [facility] Sedimentation Rate (01/26/2012 11:51 AM CDT) Patholo gist Method Time Signature Sedimentation 6 0 - 29 [facility] Rate, B MM/[address] [facility] Specimen Anatomical Collection Method Collection Time Receive d Time (Source) Location / / Volume Laterality 01/26/2012 11:51 01/26/2012 AM CDT 11:51 AM CDT Alicja Olivares M.D. LAB BLOOD ADD-ON Performing Organization Address City/State/ZIP Code Phon e Number [facility]IES - [address] [address] [facility] AST (Aspartate Aminotransferase) (01/26/2012 11:51 AM CDT) athologist Signature AST, Total, S 16 8 - 43 U/L [facility] Specimen Anatomical Collection Method Collection Time Receive d Time (Source) Location / / Volume Laterality 01/26/2012 11:51 01/26/2012 AM CDT 11:51 AM CDT Alicja Olivares M.D. LAB BLOOD ADD-ON Performing Organization Address City/State/ZIP Code Phon e Number [facility]IES - [address] [address] [facility] BUN (Blood Urea Nitrogen) (01/26/2012 11:51 AM CDT) P athologist Signature BUN (Blood 12 7 - 20 [facility] Urea MG/DL LABORATORIES - Nitrogen), S [facility] Specimen Anatomical Collection Method Collection Time Receive d Time (Source) Location / / Volume Laterality 01/26/2012 11:51 01/26/2012 AM CDT 11:51 AM CDT Alicja Olivares M.D. LAB BLOOD ADD-ON Performing Organization Address City/State/ZIP Code Phon e Number [facility] - [address] [address] [facility] S-TSH (Thyroid-Stimulating Hormone - Sensitive) (01/26/2012 11:51 AM CDT) P athologist Signature TSH, Sensitive 1.0 0.3 - 5.0 [facility] MIU/L [facility] Specimen Anatomical Collection Method Collection Time Receive d Time (Source) Location / / Volume Laterality 01/26/2012 11:51 01/26/2012 AM CDT 11:51 AM CDT Alicja Olivares M.D. LAB BLOOD ADD-ON Performing Organization Address City/State/ZIP Code Phon e Number [facility]IES - [address] [place], [place] [address] [facility] CRP (C-Reactive Protein) (01/26/2012 11:51 AM CDT) P athologist Signature C-Reactive <3.0 <=8.0 MG/L [facility] Protein (CRP), LABORATORIES - S [facility] Specimen Anatomical Collection Method Collection Time Receive d Time (Source) Location / / Volume Laterality 01/26/2012 11:51 01/26/2012 AM CDT 11:51 AM CDT Alicja Olivares M.D. LAB BLOOD ADD-ON Performing Organization Address City/[facility]/ZIP Code Phon e Number [facility]IES - [address] [address] [facility] Bicarbonate (01/26/2012 11:51 AM CDT) P athologist Signature HX 27 22 - 29 [facility] Bicarbonate, MMOL/L LABORATORIES - P/S [facility] Specimen Anatomical Collection Method Collection Time Receive d Time (Source) Location / / Volume Laterality 01/26/2012 11:51 01/26/2012 AM CDT 11:51 AM CDT Alicja Olivares M.D. LAB BLOOD ADD-ON Performing Organization Address City/State/ZIP Code Phon e Number [facility]ATORIES - [address] [address] [facility] Bilirubin, Direct (01/26/2012 11:51 AM CDT) P athologist Signature Bilirubin, 0.1 0.0 - 0.3 [facility] Direct, S MG/DL [facility]ATORIES - [facility] Specimen Anatomical Collection Method Collection Time Receive d Time (Source) Location / / Volume Laterality 01/26/2012 11:51 01/26/2012 AM CDT 11:51 AM CDT Alicja Olivares M.D. LAB BLOOD ADD-ON Performing Organization Address City/State/ZIP Code Phon e Number [facility] LABORATORIES - [address] [place], [place] [address] [facility] (ABNORMAL) Alkaline Phosphatase (01/26/2012 11:51 AM CDT) Analysis Performed At Patho logist Time Signature Alkaline 50 (L) 52 - 144 [facility] Phosphatase, S U/L [facility]ATORIES - [facility] Specimen Anatomical Collection Method Collection Time Receive d Time (Source) Location / / Volume Laterality 01/26/2012 11:51 01/26/2012 AM CDT 11:51 AM CDT Alicja Olivares M.D. LAB BLOOD ADD-ON Performing Organization Address City/State/ZIP Code Phon e Number [facility] LAB[facility]IES - [address] [place] [address] [facility] Hx general Pathology Report (01/21/2012 11:34 AM CDT) Specimen Anatomical Collection Method Collection Time Receive d Time (Source) Location / / Volume Laterality 01/21/2012 11:34 01/21/2012 AM CDT 11:34 AM CDT Narrative [facility] - 01/21/2012 11:34 AM CDT ??01/21/2012 General Biopsy ? ([id number]) ? Requested By: Alicja Olivares M.D. ? ?[phone] ? Additional Physician: ??Rafaela Hughes [id number] ? SLIDE DISPOSITION: ? DIAGNOSIS: ?? A. ??Duodenum, 2nd part, endoscopic bio psy: ??Small bowel mucosa without diagnostic abnormality. ??Villi and plasma cells are present. ??No evidence of Whipple's disease, harley iac sprue, or Giardia. ?? B. ??Stomach, antrum, endoscopic biopsy : ??Antral mucosa without diagnostic abnormality. ??No Helicobact er pylori. ?? C. ??Esophagus, lower third, endoscopic biopsy: ??Normal squamous esophageal mucosa. No intraepithelial e osinophils identified. ? 01/22/2012 15:24 Interpreted by: Dinorah Corral.B.S. [id number] Report electronically signed by Bruna CorralB.S. Transcribed by: valerie 01/22/2012 14:16:11 ? TISSUE DESCRIPTION: [id number] A. Received in formalin labeled with th e patient's name and medical record number as [id number] and is label ed as duodenum-second part are two pink-henry irregular soft tissues , each at 0.3 cm in greatest dimension. Specimens are submitted en t jesús in cassette A1. ?? B. Received in formalin labeled with th e patient's name and medical record number as [id number] and is label ed as stomach-antrum is a 0.5 x 0.2 x 0.1 cm pale henry irregular s oft tissue. Specimen is submitted en toto in cassette B1. ?? C. Received in formalin labeled with th e patient's name and medical record number as [id number] and is label ed as esophagus-lower third are four pale henry-translucent irregular ranging from 0.1-0.5 cm in greatest dimension. Specimens are submi tted en toto in cassette C1. ?? Part A: ??Duodenum, 2nd part, endoscopi c biopsy ?1 2nd pt ?? Part B: ??Stomach, Antrum, endoscopic b iopsy ?1 Antrum ?? Part C: ??Esophagus, Lower third, endos copic biopsy ?1 Low 1/3 ?? GI Path ? Procedure Note 07/25/2017 01/21/2012 General Biopsy ([id number]) Requested By: Alicja Olivares M.D. [phone] Additional Physician: Faustina Dee M.D. [id number] SLIDE DISPOSITION: DIAGNOSIS: A. Duodenum, 2nd part, endoscopic biops y: Small bowel mucosa without diagnostic abnormality. Villi a nd plasma cells are present. No evidence of Whipple's disease, dmitriy c sprue, or Giardia. B. Stomach, antrum, endoscopic biopsy: Antral mucosa without diagnostic abnormality. No Helicobacter pylori. C. Esophagus, lower third, endoscopic b iopsy: Normal squamous esophageal mucosa. No intraepithelial e osinophils identified. 01/22/2012 15:24 Interpreted by: Dinorah Corral.B.S. [id number] Report electronically signed by Bruna CorralB.S. Transcribed by: valerie 01/22/2012 14:16:11 TISSUE DESCRIPTION: [id number] A1B1C1 A. Received in formalin labeled with th e patient's name and medical record number as [id number] and is label ed as duodenum-second part are two pink-henry irregular soft tissues , each at 0.3 cm in greatest dimension. Specimens are submitted en t jesús in cassette A1. B. Received in formalin labeled with th e patient's name and medical record number as [id number] and is label ed as stomach-antrum is a 0.5 x 0.2 x 0.1 cm pale henry irregular s oft tissue. Specimen is submitted en toto in cassette B1. C. Received in formalin labeled with th e patient's name and medical record number as [id number] and is label ed as esophagus-lower third are four pale henry-translucent irregular ranging from 0.1-0.5 cm in greatest dimension. Specimens are submi tted en toto in cassette C1. Part A: Duodenum, 2nd part, endoscopic biopsy 1 2nd pt Part B: Stomach, Antrum, endoscopic bio psy 1 Antrum Part C: Esophagus, Lower third, endosco pic biopsy 1 Low 1/3 GI Path Alicja Olivares M.D. LAB PATHOLOGY/CYTOLOGY ORDER KENYA Performing Organization Address City/State/ZIP Code Phon e Number [facility] - [address] Hx general Pathology Report (01/21/2012 11:32 AM CDT) Specimen Anatomical Collection Method Collection Time Receive d Time (Source) Location / / Volume Laterality 01/21/2012 11:32 01/21/2012 AM CDT 11:32 AM CDT Narrative [facility] - [facility] - 01/21/2012 11:32 AM CDT ??01/21/2012 General Biopsy ? ([id number]) ? Requested By: Alicja Olivares M.D. ? ?[phone] ? Additional Physician: ??Rafaela Hughes [id number] ? SLIDE DISPOSITION: ? DIAGNOSIS: ?? A. ??Ileum, terminal ileum, endoscopic biopsy: ??Normal ileal mucosa. ?? B. ??Colon, random, endoscopic biopsy: ??Normal colonic mucosa. ??No evidence of collagenous or lymphocytic colitis. ? 01/22/2012 11:09 Interpreted by: Bruna CorralB.S. [id number] Report electronically signed by Bruna CorralB.S. Transcribed by: valerie 01/22/2012 10:21:22 ? TISSUE DESCRIPTION: [id number] A1B1 A. Received in formalin labeled with th e patient's name and medical record number as [id number] and is label ed as ileum-terminal ileum are two pale henry irregular soft tissues , ranging from 0.3-0.4 cm in greatest dimension. Specimens are submi tted en toto in cassette A1. ?? B. Received in formalin labeled with th e patient's name and medical record number as [id number] and is label ed as colon-random are five pink-henry irregular soft tissues, rangin g from 0.2-0.4 cm in greatest dimension. ??Specimens are submitted en toto in cassette B1. ?? Part A: ??Ileum, Terminal Ileum, endosc opic biopsy ?1 Term Ileum ?? Part B: ??Colon, Random, endoscopic bio psy ?1 Random ?? GI Path ? Procedure Note 07/25/2017 01/21/2012 General Biopsy ([id number]) Requested By: Alicja Olivares M.D. [phone] Additional Physician: Faustina Dee M.D. [id number] SLIDE DISPOSITION: DIAGNOSIS: A. Ileum, terminal ileum, endoscopic bi opsy: Normal ileal mucosa. B. Colon, random, endoscopic biopsy: No rmal colonic mucosa. No evidence of collagenous or lymphocytic colitis. 01/22/2012 11:09 Interpreted by: Bruna CorralB.S. [id number] Report electronically signed by Bruna CorralB.S. Transcribed by: valerie 01/22/2012 10:21:22 TISSUE DESCRIPTION: [id number] A1B1 A. Received in formalin labeled with th e patient's name and medical record number as [id number] and is label ed as ileum-terminal ileum are two pale henry irregular soft tissues , ranging from 0.3-0.4 cm in greatest dimension. Specimens are submi tted en toto in cassette A1. B. Received in formalin labeled with th e patient's name and medical record number as [id number] and is label ed as colon-random are five pink-henry irregular soft tissues, rangin g from 0.2-0.4 cm in greatest dimension. Specimens are submitted en t jesús in cassette B1. Part A: Ileum, Terminal Ileum, endoscop ic biopsy 1 Term Ileum Part B: Colon, Random, endoscopic biops y 1 Random GI Path Alicja Olivares M.D. LAB PATHOLOGY/CYTOLOGY ORDER KENYA Performing Organization Address City/[facility] Phon e Number [facility] - [address] ALT (Alanine Aminotransferase) (01/21/2012 10:28 AM CDT) Patholo gist Method Time Signature Alanine 12 7 - 45 [facility] Aminotransferase U/L LABORATORIES - (ALT), S [facility] Specimen Anatomical Collection Method Collection Time Receive d Time (Source) Location / / Volume Laterality 01/21/2012 10:28 01/21/2012 AM CDT 10:28 AM CDT Faustina Dee M.D. LAB BLOOD ADD-ON Performing Organization Address City/[facility] Phon e Number [facility] - [address] CRP (C-Reactive Protein) (01/21/2012 10:28 AM CDT) P athologist Signature C-Reactive <3.0 <=8.0 MG/L [facility] Protein (CRP), LABORATORIES - S [facility] Specimen Anatomical Collection Method Collection Time Receive d Time (Source) Location / / Volume Laterality 01/21/2012 10:28 01/21/2012 AM CDT 10:28 AM CDT Faustina Dee M.D. LAB BLOOD ADD-ON Performing Organization Address City/[facility] Phon e Number [facility] - [address] (ABNORMAL) CBC with Differential (01/21/2012 10:28 AM CDT) [facility] Method Time Signature Hemoglobin 13.1 12.0 - [facility] 15.5 G/DL LABORATORIES - [facility] Hematocrit 39.9 34.9 - [facility] 44.5 % LABORATORIES - [facility] RBC Distrib 12.6 11.9 - [facility] Width 15.5 % LABORATORIES - [facility] Platelet Count 197 150 - 450 [facility] X10(9)/L LABORATORIES - [facility] Lymphocytes 1.33 0.90 - [facility] 2.90 LABORATORIES - X10(9)/L [facility] Monocytes 0.22 (L) 0.30 - [facility] 0.90 LABORATORIES - X10(9)/L [facility] Erythrocytes 4.48 3.90 - [facility] 5.03 LABORATORIES - X10(12)/L [facility] MCV 89.1 81.6 - [facility] 98.3 FL LABORATORIES - [facility] Leukocytes 4.8 3.5 - [facility] 10.5 LABORATORIES - X10(9)/L [facility] Neutrophils 3.22 1.70 - [facility] 7.00 LABORATORIES - X10(9)/L [facility] Eosinophils 0.04 (L) 0.05 - [facility] 0.50 LABORATORIES - X10(9)/L [facility] Basophils 0.00 0.00 - [facility] 0.30 LABORATORIES - X10(9)/L [facility] Specimen Anatomical Collection Method Collection Time Receive d Time (Source) Location / / Volume Laterality 01/21/2012 10:28 01/21/2012 AM CDT 10:28 AM CDT Faustina Dee M.D. LAB BLOOD ADD-ON Performing Organization Address City/State/ZIP Code Phon e Number [facility] - [address] [place], [place] [address] [facility] Immunoglobulin A (IgA) (01/21/2012 10:28 AM CDT) [facility] Method Time Signature Immunoglobulin A 186 60 - 337 [facility] (IgA), S MG/DL LABORATORIES - [facility] Specimen Anatomical Collection Method Collection Time Receive d Time (Source) Location / / Volume Laterality 01/21/2012 10:28 01/21/2012 AM CDT 10:28 AM CDT Faustina Dee M.D. LAB BLOOD ADD-ON Performing Organization Address City/[facility] Code Phon e Number [facility] - [address] [place] [phone] [facility] Sedimentation Rate (01/21/2012 10:28 AM CDT) Patholo gist Method Time Signature Sedimentation 6 0 - 29 [facility] Rate, B MM/[address] [facility] Specimen Anatomical Collection Method Collection Time Receive d Time (Source) Location / / Volume Laterality 01/21/2012 10:28 01/21/2012 AM CDT 10:28 AM CDT Faustina Dee M.D. LAB BLOOD ADD-ON Performing Organization Address City/State/ZIP Code Phon e Number [facility] - [address] [place] [address] [facility] AST (Aspartate Aminotransferase) (01/21/2012 10:28 AM CDT) P athologist Signature AST, Total, S 21 8 - 43 U/L [facility] Specimen Anatomical Collection Method Collection Time Receive d Time (Source) Location / / Volume Laterality 01/21/2012 10:28 01/21/2012 AM CDT 10:28 AM CDT Faustina Dee M.D. LAB BLOOD ADD-ON Performing Organization Address City/State/ZIP Code Phon e Number [facility] - [address] [place] [phone] [facility] Bilirubin, Total (01/21/2012 10:28 AM CDT) P athologist Signature Bilirubin, 0.5 0.1 - 1.0 [facility] Total, S MG/DL [facility] Specimen Anatomical Collection Method Collection Time Receive d Time (Source) Location / / Volume Laterality 01/21/2012 10:28 01/21/2012 AM CDT 10:28 AM CDT Faustina Dee M.D. LAB BLOOD ADD-ON Performing Organization Address City/State/ZIP Code Phon e Number [facility] - [address] documented in this encounter Visit Diagnoses Not on filedocumented in this encounter
--- OUTSIDE RECORDS SUMMARY | 2022-01-24 14:10 | XMS_ITS | Encounter Summary ---
:1995 Author Organization [facility] [place] [address] Care Team Providers Name Role Phone Unavailable Primary Care Provider Unavailable Encounter Details Date Type Department Care Team Description 08/24/2014 Hospital Encounter [facility] Stephen Figueroa Jr., M.D. [address] [place], [place] [phone] (Wo rk) Social History [...] - - Height 173 cm (5' 8.11) 08/24/2014 8:41 AM CDT Body Mass Index - - documented in this encounter Progress Notes Stephen Figueroa M.D. - 08/24/2014 8:40 AM CDT [id number] The documentation for this visit is available in [employer] IMPRESSION/REPORT/PLAN A) Myopia, unchanged P) glasses at night only if desired. RTO 1-2 year Stephen Figueroa M.D./sissy Electronically Signed By: STEPHEN FIGUEROA MD On: 08/30/2014 09:01 AM Source: [facility] MHSDOLBEYNONRADSYS Document Id: [id number] documented in this encounter Miscellaneous Notes Miscellaneous - Stephen Figueroa M.D. - 08/24/2014 9:20 AM CDT Ambulatory Patient Summary [address] [id number] Visit Information Name: ADEBAYO ESQUEDAZACORNELL PACHECO [facility] Number: [id number] Current Date: 08/24/2014 09:20:55 Physicians Attending Provider: STEPHEN FIGUEROA MD Primary Care Provider: MARGARITA PALAFOX MD LILLYRITESHISABEL PACHECO has been given the following list [...] tablet) 1 Tablet(s), Oral, once a day norgestimate-ethinyl estradiol (Tri-Sprintec oral tablet) 1 Tablet(s), Oral, once a day Stop Taking the Following Medications: Medication list as of 08-24-14 09:20 Attention: If you have any medications at home that are not on this list, DO NOT take them until youcontact your provider for clarification. Give a copy of your medication list to your primary care provider. Update your medication list any time medications or doses are changed and carry your medication list at all times in case of emergency. Electronically Signed By: STEPHEN FIGUEROA MD Signed On:24-AUG-2014 09:20:50 Your Allergies & Intolerances Substance Reaction Symptoms Category Comments amoxicillin rash Drug Your Problem List Problem Status Onset Comments Malabsorption Active 02/15/2011 06/02/11 fructose / per [facility] Allergic reaction to drug, not elsewhere classified Active 06/03/2011 06/03/11 amoxicillin Your Upcoming Appointments Date Time Location Provider No Appointments found Attention: Contact your local Clinic if further appointment detail needed. Your Goals/Additional instructions: [facility] Document Id: [id number] Miscellaneous - Stephen Figueroa M.D. - 08/24/2014 9:20 AM CDT Ambulatory Discharge Medication List [address] [id number] Visit Information Name: LILLYALEJANDRINACHANDRIKACORNELL PACHECO [facility] Number: [id number] Visit Date: 08/24/2014 09:20:54 Attending Provider: STEPHEN FIGUEROA MD Primary Care Provider: MARGARITA PALAFOX MD LILLYCHANDRIKA [...] tablet) 1 Tablet(s), Oral, once a day norgestimate-ethinyl estradiol (Tri-Sprintec oral tablet) 1 Tablet(s), Oral, once a day Stop Taking the Following Medications: Medication list as of 08-24-14 09:20 Attention: If you have any medications at home that are not on this list, DO NOT take them until youcontact your provider for clarification. Give a copy of your medication list to your primary care provider. Update your medication list any time medications or doses are changed and carry your medication list at all times in case of emergency. Electronically Signed By: STEPHEN FIGUEROA MD Signed On:24-AUG-2014 09:20:50 Additional Information: Source: [facility] [employer].CHART Document Id: [id number] documented in this encounter Plan of Treatment Not on filedocumented as of this encounter Visit Diagnoses Not on filedocumented in this encounter
--- OUTSIDE RECORDS SUMMARY | 2022-01-24 14:10 | XMS_ITS | Encounter Summary ---
:1995 Author Organization [facility] [place] [address] Care Team Providers Name Role Phone Unavailable Primary Care Provider Unavailable Encounter Details Date Type Department Care Team Description 12/01/2012 Hospital Encounter [facility] Zaynab Barr i, M.D. [address] [place] [phone] (Wo rk) Social History Tobacco Use Types Packs/Day Years Used Date Smoking Tobacco: Never Assessed Sex Assigned at Date Recorded Female 07/27/2019 2:28 PM CDT documented as of this encounter Last Filed Vital Signs Vital Sign Reading Time Taken Comments Blood Pressure 110/52 12/01/2012 1:24 PM CDT Pulse 68 12/01/2012 1:24 PM CDT Temperature - - Respiratory Rate 16 12/01/2012 1:24 PM CDT Oxygen Saturation - - Inhaled Oxygen Concentration - - Weight 61.5 kg (135 lb 9.3 oz) 12/01/2012 1:24 PM CDT Height 171 cm (5' 7.32) 12/01/2012 1:24 PM CDT Body Mass Index 21.03 12/01/2012 1:24 PM CDT Body Mass Index Percentile 44.23 % 12/01/2012 1:24 PM CD T Growth Chart: CDC (Girls, 2-20 Years) documented in this encounter H&P Notes Zaynab Skelton M.D. - 12/01/2012 1:05 PM CDT [id number] CHIEF COMPLAINT/ REASON FOR VISIT Review medications, review medical concerns, update preventive services. HISTORY OF PRESENT ILLNESS Chandrika is a healthy 17 year old female who presents to the clinic for an annual physical. She is going to college at [employer] in the fall. She has a history of vomiting and diarrhea and has followed up with [facility]. Chandrika is uncertain of a final diagnosis. On her last period, she reports gastrointestinal symptoms of intestinal cramping, which she has had previously and improved with theinitiation of oral contraceptive. The patient denies any additional questions or concerns at this time. CURRENT MEDICATIONS Post-visit Medication Reconciliation Reviewed and are as outlined in the EMR 1. MonoNessa, 1 tab, PO, daily, discontinued today. 2. Tri-Sprintec, 1 tab, PO, daily, prescribed today. ALLERGIES Amoxicillin SYSTEMS REVIEW She otherwise has no complaints. No headaches, numbness or tingling. No changes in vision or hearing. No sore throat, runny nose, earache or cough. No shortness of breath or chest pain. No abdominal pain or change in bowel habits. No hematuria or dysuria. No vaginal discharge or dyspareunia. No musculoskeletal aches or pains. No lymph node swelling. No easy bruising or bleeding. No excessive thirst or hunger. No mood or behavioral difficulties. PAST MEDICAL/SURGICAL HISTORY MEDICAL HISTORY 1. Malabsorption. SURGICAL HISTORY 1. Tonsillectomy and adenoidectomy PREVENTIVE SERVICES: Tobacco use: negative. SOCIAL HISTORY She will be attending [employer] in the fall. FAMILY HISTORY Sister is well after being treated for Leukemia. Grandparents have diabetes. VITAL SIGNS HEIGHT: 171 cm WEIGHT: 61.5 kg BMI: 21.03 kg/m2 TEMPERATURE: 36.0 DegC PULSE: 68 /min RESPIRATORY RATE: 16 /min BLOOD PRESSURE: 110 mmHg/52 mmHg PHYSICAL EXAM GENERAL: Patient is alert and oriented times three, in no acute distress, good hygiene and is dressed appropriately. ENT: Tympanic membranes are normal bilaterally. Oropharynx is without erythema or exudate. Inferior nasal turbinates are without injection. Neck is without adenopathy. LYMPH NODES: Not palpably enlarged and no nodules are palpated. HEART: Regular rate and rhythm without murmur. LUNGS: Clear to auscultation. ABDOMEN: Soft and nontender with no masses. EXTREMITIES: Within normal limits. IMPRESSION/REPORT/PLAN 1. Health care maintenance. She is encouraged to achieve and maintain healthy body weight through diet and exercise. She is reminded of the need for monthly self breast exam, yearly eye and regular dental visits. Meningitis vaccine and first Gardasil given today. Forms for college are filled out for her. 2. Menstrual symptoms: She will be changed from MonoNessa to Tri-Sprintec and will notify me if symptoms improve. 3. Follow up: The patient will contact the clinic with any new or worsening symptoms. This document serves as a record of services personally performed by Zaynab Morrow MD. It was created on their behalf by Maria Luisa Rosales, a trained medical collections representative. The creation of this record is based on the scribe's personal observations and the provider's statements to them. This document has been chalo cked and approved by the attending provider. Zaynab Morrow M.D./burt Electronically Signed By: ZAYNAB MORROW MD On: 12/01/2012 09:47 PM Modified by and Electronically Signed by: ZAYNAB MORROW MD On: 12/01/2012 09:47 PM Source: [facility] MHSDOLBEYNONRADSYS Document Id: [id number] documented in this encounter Miscellaneous Notes Miscellaneous - Zaynab Skelton M.D. - 12/01/2012 1:48 PM CDT Ambulatory Patient Summary [address] [id number] Visit Information Name: CHANDRIKA ESQUEDA [facility] Number: [id number] Current Date: 12/01/2012 13:48:40 Physicians Attending Provider: ZAYNAB MORROW MD Primary Care Provider: ZAYNAB MORROW MD Your Medications Here is a [...] Malabsorption Active 02/15/2011 06/02/11 fructose / per [facility] Allergic reaction to drug, not elsewhere classified Active 06/03/2011 06/03/11 amoxicillin Your Upcoming Appointments Date Time Location Reason Provider No Appointments found Your Goals/Additional instructions: Source: [facility] POWERCHART Document Id: [id number] Miscellaneous - Zaynab Skelton M.D. - 12/01/2012 1:48 PM CDT Ambulatory Depart Summary [address] [phone] Visit Information Name: CHANDRIKA ESQUEDA JUNIOR [facility] Number: [id number] Visit Date: 12/01/2012 13:48:39 Attending Provider: ZAYNAB MORROW MD Primary Care Provider: ZAYNAB MORROW MD LILLYCHANDRIKA JUNIOR has been given [...] your provider for clarification. Additional Information: Source: [facility] LagotekCHART Document Id: [id number] Miscellaneous - Conversion, Historical Provider Ser - 12/01/2012 1:24 PM CDT Adult Director Of Rooms Intake/History Adult Director Of Rooms Intake/History Entered On: 12/01/2012 13:26 CDT Performed On: 12/01/2012 13:24 CDT by LOIS CASAS LPN Intake Chief Complaint : college physical Temperature Core : 36.0 DegC(Converted to: 96.8 DegF) (LOW) Peripheral Pulse Rate : 68 /min Respiratory Rate : 16 /min Systolic Blood Pressure : 110 mmHg Diastolic Blood Pressure : 52 mmHg NIBP Mean : 71 mmHg BP Location : Left upper extremity Height : 171 cm(Converted to: 5 ft 7 inch(es), 67.32 inch(es)) Actual Weight : 61.5 kg(Converted to: 135 lb 9 oz) Dosing Weight Clinic : 61.5 kg Clinic BSA : 1.71 Body Mass Index : 21.03 kg/m2 LOIS CASAS [facility] - 12/01/2012 13:24 CDT General Info Information Given By : Patient Languages : Urdu LOIS CASAS [facility] - 12/01/2012 13:24 CDT Subjective Pain Symptoms : No LOIS CASAS [facility] - 12/01/2012 13:24 CDT Dependent Habits Tobacco Use/Currently Using : No Exposure to Tobacco Smoke : Other: Never Smoking Status : Never smoker ANTONY ZEFERINO, LOIS CAROL [facility] - 12/01/2012 13:24 CDT Tobacco Use Grid Last Use : never ANTONY ZEFERINO, LOIS CAROL [employer] [employer] - 12/01/2012 13:24 CDT Caffeine Use Grid Caffeine Use : Current Type : Chocolate, Soft drinks Frequency : Occasionally ANTONY ZEFERINO, LOIS CAROL [employer] - 12/01/2012 13:24 CDT Source: [facility] LagotekCHART Document Id: [id number] CDT!32 documented in this encounter Plan of Treatment Not on filedocumented as of this encounter Visit Diagnoses Not on filedocumented in this encounter
--- OUTSIDE RECORDS SUMMARY | 2022-01-24 14:10 | XMS_ITS | Encounter Summary ---
:1995 Author Organization [facility] [place] [address] Care Team Providers Name Role Phone Unavailable Primary Care Provider Unavailable Encounter Details Date Type Department Care Team Description 08/25/2011 Hospital Encounter HX [facility] Margarita Barr i, M.D. [address] [place] [phone] (Wo rk) Social History Tobacco Use Types Packs/Day Years Used Date Smoking Tobacco: Never Assessed Sex Assigned at Date Recorded Female 07/27/2019 2:28 PM CDT documented as of this encounter Last Filed Vital Signs Vital Sign Reading Time Taken Comments Blood Pressure 100/50 08/25/2011 2:10 PM CDT Pulse 72 08/25/2011 2:10 PM CDT Temperature - - Respiratory Rate 16 08/25/2011 2:10 PM CDT Oxygen Saturation - - Inhaled Oxygen Concentration - - Weight 64.5 kg (142 lb 3.2 oz) 08/25/2011 2:10 PM CDT Height 172 cm (5' 7.72) 08/25/2011 2:10 PM CDT Body Mass Index 21.8 08/25/2011 2:10 PM CDT Body Mass Index Percentile 58.79 % 08/25/2011 2:10 PM CD T Growth Chart: CDC (Girls, 2-20 Years) documented in this encounter Progress Notes Margarita Skelton M.D. - 08/25/2011 12:00 AM CDT [id number] CHIEF COMPLAINT/ REASON FOR VISIT Dysmenorrhea. HISTORY OF PRESENT ILLNESS Chandrika has had very difficult periods over the past several months. They have been coming somewhat irregularly. She develops significant abdominal pain, nausea, vomiting and diarrhea associated with her menstrual flow. Her periods are heavy and this combination of symptoms prevents her from going to school at least 1 day per cycle. She has not been sexually active and does not plan to in the near future. Mother also has a concern about Chandrika's vulva. At one point in the past she had some pain in the area and mother was able to take a look and found a long hair wrapped around a piece of tissue. She thinks this might be extra redundant tissue. CURRENT MEDICATIONS Reviewed and are as outlined in the EMR VITAL SIGNS TEMPERATURE 37.0 PULSE 72 RESPIRATIONS 16 BLOOD PRESSURE 100/50 HEIGHT 172 cm WEIGHT is 64 kg. PHYSICAL EXAMINATION LUNGS: Clear. HEART: Regular rate and rhythm. GENITALIA: External genitalia appears normal. She does have some elongated minor labia tissue. On speculum exam the vaginal mucosa appears normal. On bimanual exam no masses are palpated. IMPRESSION/REPORT/PLAN Dysmenorrhea. We discussed using Naproxen or ibuprofen on a regular basis 3 days prior to menstrual flow. I am also starting her on MonoNessa oral contraceptives as an agent to control the amount of regularity and pain associated with her menses. She will update me in 3 months JLF/clf Signed Margarita Morrow M.D. Family Medicine Electronically Signed By: MARGARITA MORROW MD On: 09/26/2011 01:39 PM Source: [facility] MHSDOLBEYNONRADSYS Document Id: [id number] documented in this encounter Miscellaneous Notes Miscellaneous - Margarita Skelton M.D. - 08/25/2011 9:06 PM CDT Ambulatory Depart Summary [address] [address] Visit Information Name: CHANDRIKA ESQUEDA Visit Date: 08/25/2011 21:06:00 Attending Provider: MARGARITA MORROW MD Primary Care [...] your provider for clarification. Additional Information: Source: [facility] POWERCHART Document Id: [id number] Miscellaneous - Margarita Skelton M.D. - 08/25/2011 9:06 PM CDT Ambulatory Patient Summary [address] [address] Visit Information Name: CHANDRIKA ESQUEDA Current Date: 08/25/2011 21:06:00 Physicians Attending Provider: MARGARITA MORROW MD Primary [...] Comments Malabsorption Active 02/15/2011 fructose / per [facility] Allergic reaction to drug, not elsewhere classified Active 06/03/2011 amoxicillin Your Upcoming Appointments Date Time Location Reason Provider No Appointments found Your Goals/Additional instructions: Source: [place] Document Id: [id number] Miscellaneous - Conversion, Historical Provider Ser - 08/25/2011 2:10 PM CDT Pediatric Electronic Development Technician Intake/History Pediatric Electronic Development Technician Intake/History Entered On: 08/25/2011 14:14 CDT Performed On: 08/25/2011 14:10 CDT by LOIS CASAS LPN Intake Chief Complaint : iregular menses Temperature Core : 37.0C(Converted to: 98.6DegF) Peripheral Pulse Rate : 72/min Respiratory Rate : 16/min Systolic Blood Pressure : 100mmHg Diastolic Blood Pressure : 50mmHg (LOW) NIBP Mean : 67mmHg BP Location : Right upper extremity Blood Pressure Cuff Size : Regular Height : 172cm(Converted to: 5ft 8inch(es), 67.72inch(es)) Actual Weight : 64.5kg(Converted to: 142lb 3oz) Dosing Weight Clinic : 64.50kg Clinic BSA : 1.76 Body Mass Index : 21.80kg/m2 LOIS CASAS LPN - 08/25/2011 14:10 CDT Subjective Pain Symptoms : No LOIS CASAS LPN - 08/25/2011 14:10 CDT Dependent Habits Tobacco Use/Currently Using : No Exposure to Tobacco Smoke : Other: Never Smoking Status : Never smoker LOIS CASAS LPN - 08/25/2011 14:10 CDT Allergy Allergies (Active) amoxicillin Estimated Onset Date: <not entered> 06/03/2011 ; Reactions: rash ; Created By: PRICILA BEDOLLA CNP; Reaction Status: Active ; Category: Drug ; Substance: amoxicillin ; Type: Allergy ;Updated By: PRICILA BEDOLLA CNP; Reviewed Date: 06/03/2011 14:15 FIELD AGENT Source: [facility] POWERCHART Document Id: [id number] [id number]!22 documented in this encounter Plan of Treatment Not on filedocumented as of this encounter Visit Diagnoses Not on filedocumented in this encounter
--- OUTSIDE RECORDS SUMMARY | 2022-01-24 14:10 | XMS_ITS | Encounter Summary ---
:1995 Author Organization [facility] [place] [address] Care Team Providers Name Role Phone Unavailable Primary Care Provider Unavailable Encounter Details Date Type Department Care Team Description 12/01/2011 Hospital Encounter HX [facility] Margarita Barr i, M.D. [address] [place] [phone] (Wo rk) Social History Tobacco Use Types Packs/Day Years Used Date Smoking Tobacco: Never Assessed Sex Assigned at Date Recorded Female 07/27/2019 2:28 PM CDT documented as of this encounter Last Filed Vital Signs Vital Sign Reading Time Taken Comments Blood Pressure 100/66 12/01/2011 2:51 PM CDT Pulse 64 12/01/2011 2:51 PM CDT Temperature - - Respiratory Rate 20 12/01/2011 2:51 PM CDT Oxygen Saturation - - Inhaled Oxygen Concentration - - Weight 64 kg (141 lb 1.5 oz) 12/01/2011 2:51 PM CDT Height 172 cm (5' 7.72) 12/01/2011 2:51 PM CDT Body Mass Index 21.63 12/01/2011 2:51 PM CDT Body Mass Index Percentile 55.68 % 12/01/2011 2:51 PM CD T Growth Chart: CDC (Girls, 2-20 Years) documented in this encounter Progress Notes Margarita Skelton M.D. - 12/01/2011 2:26 PM CDT [id number] CHIEF COMPLAINT/REASON FOR VISIT Not feeling well. HISTORY OF PRESENT ILLNESS About 2 weeks ago Chandrika had an episode of nausea and diarrhea which lasted a couple of days and then resolved completely. She has felt normally until 2 days ago when she developed an earache and sinus pressure. She has since developed sore throat, nausea, occasional vomiting and lightheadedness. She has no abdominal pain but does have continued nausea. She does feel somewhat better today. She hasnot had fevers that she knows of and has not had chills. CURRENT MEDICATIONS Reviewed and are as outlined in the EMR VITAL SIGNS HEIGHT 172 cm WEIGHT 60 kg TEMPERATURE 36.8 RESPIRATIONS 20 PULSE 64 BLOOD PRESSURE 100/66. PHYSICAL EXAMINATION GENERAL: She appears mildly ill. ENT: Tympanic membranes are normal. Nasal mucosa is pink and moist without purulent discharge. Oropharynx is without erythema exudate or tonsillar enlargement. NECK: Without adenopathy. LUNGS: Clear. HEART: Regular rate and rhythm. ABDOMEN: Soft with no tenderness or masses. Bowel sounds are normal. Rapid strep is negative. IMPRESSION/REPORT/PLAN Constellation of symptoms consistent with a viral illness. She is not having significant right lowerquadrant tenderness but I would continue to monitor for increased pain in this area. Symptomatic measures are recommended including clear liquids until the nausea resolved. Benadryl can sometimes be helpful in this regard. Rest and Tylenol may also be helpful. Alert me to any new or worsening symptoms Margarita Morrow M.D./mali Electronically Signed By: MARGARITA MORROW MD On: 12/29/2011 11:08 AM Source: [facility] MHSDOLBEYNONRADSYS Document Id: [id number] documented in this encounter Miscellaneous Notes Miscellaneous - Margarita Skelton M.D. - 12/01/2011 5:16 PM CDT Ambulatory Depart Summary [address] [address] Visit Information Name: CHANDRIKA ESQUEDA Visit Date: 12/01/2011 17:16:03 Attending Provider: MARGARITA MORROW MD Primary Care [...] your provider for clarification. Additional Information: Source: [facility] POWERCHART Document Id: [id number] Miscellaneous - Margarita Skelton M.D. - 12/01/2011 5:16 PM CDT Ambulatory Patient Summary [address] [address] Visit Information Name: CHANDRIKA ESQUEDA Current Date: 12/01/2011 17:16:04 Physicians Attending Provider: MARGARITA MORROW MD Primary [...] Malabsorption Active 02/15/2011 06/02/11 fructose / per [facility] Allergic reaction to drug, not elsewhere classified Active 06/03/2011 06/03/11 amoxicillin Your Upcoming Appointments Date Time Location Reason Provider No Appointments found Your Goals/Additional instructions: Source: [facility] POWERCHART Document Id: [id number] Miscellaneous - Conversion, Historical Provider Ser - 12/01/2011 2:51 PM CDT 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 Entered On: 12/01/2011 14:52 CDT Performed On: 12/01/2011 14:51 CDT by LOIS CASAS LPN Intake Chief Complaint : cold symptoms Temperature Core : 36.8C(Converted to: 98.2DegF) Peripheral Pulse Rate : 64/min Respiratory Rate : 20/min Systolic Blood Pressure : 100mmHg Diastolic Blood Pressure : 66mmHg NIBP Mean : 77mmHg BP Location : Right upper extremity Blood Pressure Cuff Size : Regular Height : 172cm(Converted to: 5ft 8inch(es), 67.72inch(es)) Actual Weight : 64kg(Converted to: 141lb 2oz) Dosing Weight Clinic : 64.00kg Clinic BSA : 1.75 Body Mass Index : 21.63kg/m2 LOIS CASAS LPN - 12/01/2011 14:51 CDT Subjective Pain Symptoms : Yes LOIS CASAS LPN - 12/01/2011 14:51 CDT Pain Pain Assessment Grid Pain 1 Pain 2 Location : Throat Ear LOIS CASAS LPN - 12/01/2011 14:51 CDT LOIS CASAS LPN - 12/01/2011 14:51 CDT Dependent Habits Tobacco Use/Currently Using : No Exposure to Tobacco Smoke : Other: Never Smoking Status : Never smoker LOIS CASAS LPN - 12/01/2011 14:51 CDT Tobacco Use Grid Last Use : never LOIS CASAS LPN - 12/01/2011 14:51 CDT Allergy Allergies (Active) amoxicillin Estimated Onset Date: <not entered> 06/03/2011 ; Reactions: rash ; Created By: PRICILA BEDOLLA CNP; Reaction Status: Active ; Category: Drug ; Substance: amoxicillin ; Type: Allergy ;Updated By: PRICILA BEDOLLA CNP; Reviewed Date: 12/01/2011 14:50 CDT Source: [facility] POWERCHART Document Id: [id number] documented in this encounter Plan of Treatment Not on filedocumented as of this encounter Procedures Procedure Name Priority Date/Time Associated Diagnosis Comme nts RAPID STREP A Routine 12/01/2011 3:24 PM Results for this SCREEN CDT procedure are i n the results section. RAPID STREP A Routine 12/01/2011 3:24 PM Results for this SCREEN CDT procedure are i n the results section. documented in this encounter Results Rapid Strep A Screen (12/01/2011 3:24 PM CDT) [facility] [place] Method Time Signature HXRapid Strep POWERCHART Confirmation HXFinal Negative POWERCHART Specimen Anatomical Collection Method Collection Time Receive d Time (Source) Location / / Volume Laterality Throat 12/01/2011 3:24 PM 2 3:24 CDT PM CDT Margarita Roberts M.D. LAB MICROBIOLOGY - GEN ERAL ORDERABLES Performing Organization Address City/State/ZIP Code Phon e Number POWERCHART Rapid Strep A Screen (12/01/2011 3:24 PM CDT) [facility] Method Time Signature HXStrep A POWERCHART Screen Rapid HXFinal Negative for POWERCHART Strep Group A by rapid screen. HXFinal Culture POWERCHART confirmation to follow. Specimen (Source) Anatomical Collection Method Collection Time Re ceived Time Location / / Volume Laterality Throat 12/01/2011 3:24 PM CDT Margarita Roberts M.D. LAB MICROBIOLOGY - GEN ERAL ORDERABLES Performing Organization Address City/State/ZIP Code Phon e Number POWERCHART documented in this encounter Visit Diagnoses Not on filedocumented in this encounter
--- OUTSIDE RECORDS SUMMARY | 2022-01-24 14:10 | XMS_ITS | Encounter Summary ---
:[address] [facility] [place] [address] Care Team Providers Name Role Phone Unavailable Primary Care Provider Unavailable Encounter Details Date Type Department Care Team Description 11/10/2014 Hospital Encounter HX [facility] FAMILY[facility] Zaynab Barr i, M.D. [address] [place] [phone] (Wo rk) Social History Tobacco Use Types Packs/Day Years Used Date Smoking Tobacco: Never Assessed Sex Assigned at Date Recorded Female 07/27/2019 2:28 PM CDT documented as of this encounter Last Filed Vital Signs Vital Sign Reading Time Taken Comments Blood Pressure 108/62 11/10/2014 10:13 AM CDT Pulse 72 11/10/2014 10:13 AM CDT Temperature - - Respiratory Rate 16 11/10/2014 10:13 AM CDT Oxygen Saturation - - Inhaled Oxygen Concentration - - Weight 69.2 kg (152 lb 8.9 oz) 11/10/2014 10:13 AM CDT Height 173 cm (5' 8.11) 11/10/2014 10:13 AM CDT Body Mass Index 23.12 11/10/2014 10:13 AM CDT documented in this encounter Progress Notes Zaynab Skelton M.D. - 11/10/2014 9:41 AM CDT [id number] CHIEF COMPLAINT/ REASON FOR VISIT Cold symptoms. HISTORY OF PRESENT ILLNESS Chandrika is a 19 year old female who presents to the clinic today for cold symptoms. Chandrika states that she feels cruddy. She has ear pain, a sore throat, had a fever last week and nasal congestion. Chandrika also has facial pain and fullness. She has had these symptoms for the past two weeks. Chandrika reports that she has a history of having frequent sinus infections. The patient denies any additional questions or concerns at this time. MEDICATIONS Post-visit Medication Reconciliation Reviewed and are as outlined in the EMR includin. Bactrim DS 800 mg - 160 mg, 1 tablet, PO, b.i.d. for 10 days, prescribed today. ALLERGIES Amoxicillin causes a rash. SYSTEMS REVIEW See HPI. PAST MEDICAL/SURGICAL HISTORY 1. Malabsorption. 2. Dysmenorrhea. 3. Tonsillectomy and adenoidectomy. PREVENTIVE SERVICES Tobacco use: none. VITAL SIGNS HEIGHT: 173 cm. WEIGHT: 69.2 kg. BMI: 23.12 kg/m2. TEMP: 36.4 Deg C. PULSE: 72 /min. RESP: 16 /min. SYSTOLIC: 108 mmHg. DIASTOLIC: 62 mmHg. PHYSICAL EXAMINATION GENERAL: Patient is alert and oriented times three, in no acute distress, good hygiene and is dressed appropriately. ENT: Tympanic membranes are normal bilaterally. Oropharynx is without erythema or exudate. Nasal mucosa is erythematous and congested. Neck is without adenopathy. LYMPH NODES: Not palpably enlarged and no nodules are palpated. HEART: Regular rate and rhythm without murmur. LUNGS: Clear to auscultation. DIAGNOSTICS: Rapid strep screening results: negative; culture is pending. IMPRESSION/REPORT/PLAN 1. Acute sinusitis. I have prescribed Bactrim, as above. I recommended symptomatic care measures such as using Afrin nasal spray. 2. Follow up: The patient will contact the clinic with any new or worsening symptoms. This document serves as a record of services personally performed by Zaynab Sanchez MD. It was created on their behalf by Frida Espinosa, a trained medical records specialist. The creation of this record is based on the scribe's personal observations and the provider's statements to them. This document has been chalo cked and approved by the attending provider. Zaynab Goodwin M.D./[place]on Electronically Signed By: ZAYNAB SKELTON MD On: 01/22/2015 10:12 AM Source: [facility] MHSDOLNAI Document Id: [id number] documented in this encounter Miscellaneous Notes Miscellaneous - Zaynab Skelton M.D. - 11/10/2014 12:55 PM CDT Ambulatory Patient Summary [id number] [place], [place] [phone] Visit Information Name: CHANDRIKA ESQUEDA [facility] Number: [id number] Current Date: 11/10/2014 12:55:31 Physicians Attending Provider: ZAYNAB SKELTON MD Primary Care Provider: ZAYNAB SKELTON MD LILLYCHANDRIKA JUNIOR has been given the [...] tablet) 1 Tablet(s), Oral, once a day sulfamethoxazole-trimethoprim (Bactrim DS 800 mg-160 mg oral tablet) 1 Tablet(s), Oral, two times a day x 10 day(s) [facility] [address] [place] [address] Stop Taking the Following Medications: Medication list as of 11-10-14 12:55 Attention: If you have any medications at home that are not on this list, DO NOT take them until youcontact your provider for clarification. Give a copy of your medication list to your primary care provider. Update your medication list any time medications or doses are changed and carry your medication list at all times in case of emergency. Electronically Signed By: ZAYNAB SKELTON MD Signed On:10-NOV-2014 12:55:24 Your Allergies & Intolerances Substance Reaction Symptoms Category Comments amoxicillin rash Drug Your Problem List Problem Status Onset Comments Malabsorption Active 02/15/2011 06/02/11 fructose / per [facility] Allergic reaction to drug, not elsewhere classified [...] if you dont have one. Go to [email or web address] and click on Create Your Account. Then, follow the directions to complete the online form. Youll be asked for your [facility] number which you can find at the top of this document. Your Goals/Additional instructions: Source: [facility] POWERCHART Document Id: [id number] Miscellaneous - Zaynab Skelton M.D. - 11/10/2014 12:55 PM CDT Ambulatory Discharge Medication List [address] [id number] Visit Information Name: LILLYCHANDRIKA Nevarez JUNIOR [facility] Number: [id number] Visit Date: 11/10/2014 12:55:30 Attending Provider: ZAYNAB SKELTON MD Primary Care Provider: ZAYNAB SKELTON MD CHANDRIKA ESQUEDA JUNIOR has been [...] tablet) 1 Tablet(s), Oral, once a day sulfamethoxazole-trimethoprim (Bactrim DS 800 mg-160 mg oral tablet) 1 Tablet(s), Oral, two times a day x 10 day(s) New Routed to [address] [address] Stop Taking the Following Medications: Medication list as of 11-10-14 12:55 Attention: If you have any medications at home that are not on this list, DO NOT take them until youcontact your provider for clarification. Give a copy of your medication list to your primary care provider. Update your medication list any time medications or doses are changed and carry your medication list at all times in case of emergency. Electronically Signed By: ZAYNAB SKELTON MD Signed On:10-NOV-2014 12:55:24 Additional Information: Source: [facility] POWERCHART Document Id: [id number] Miscellaneous - Hollie Álvarez, L.P.N. 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 Temperature Core : 36.4 DegC(Converted to: 97.5 DegF) (LOW) Peripheral Pulse Rate : 72 /min Respiratory Rate : 16 /min Systolic Blood Pressure : 108 mmHg Diastolic Blood Pressure : 62 mmHg NIBP Mean : 77 mmHg BP Location : Right upper extremity Blood Pressure Cuff Size : Regular Height : 173 cm(Converted to: 5 ft 8 inch(es), 68 inch(es)) Actual Weight : 69.2 kg(Converted to: 152 lb 9 oz) Weight Source : Standing scale Dosing Weight Clinic : 69.2 kg Clinic BSA : 1.82 Body Mass Index : 23.12 kg/m2 HOLLIE ÁLVAREZ - 11/10/2014 10:13 CDT General Info Languages : Sinhala Is Patient Female and 13-50 no hysterectomy : Yes Status : Possible unconfirmed Are you ? : No HOLLIE ÁLVAREZ - 11/10/2014 10:13 CDT Subjective Pain Symptoms : Yes HOLLIE ÁLVAREZ 11/10/2014 10:13 CDT Pain Scale Pain Scale Verbal 0-10 : Open HOLLIE ÁLVAREZ - 11/10/2014 10:13 CDT Pain Pain Assessment Grid Pain 1 Location : Throat HOLLIE ÁLVAREZ 11/10/2014 10:13 CDT Dependent Habits Tobacco Use/Currently Using : No Exposure to Tobacco Smoke : Other: Never Smoking Status : Never smoker HOLLIE ÁLVAREZ - 11/10/2014 10:13 CDT Caffeine Use Grid Caffeine Use : Current Type : Chocolate, Soft drinks Frequency : Occasionally HOLLIE ÁLVAREZ - 11/10/2014 10:13 CDT Recreational Drug Use Grid Drug Use : None HOLLIE ÁLVAREZ 11/10/2014 10:13 CDT Source: [employer] Document Id: [id number]!42 documented in this encounter Plan of Treatment Not on filedocumented as of this encounter Procedures Procedure Name Priority Date/Time Associated Diagnosis Comme nts RAPID STREP A Routine 11/10/2014 10:20 AM Results for this SCREEN CDT procedure are i n the results section. RAPID STREP A Routine 11/10/2014 10:20 AM Results for this SCREEN CDT procedure are i n the results section. documented in this encounter Results Rapid Strep A Screen (11/10/2014 10:20 AM CDT) [facility] Method Time Signature HXRapid Strep POWERCHART Confirmation HXPre Negative for POWERCHART Group A Strep by culture. HXFinal Negative for POWERCHART Group A Strep by culture. Specimen Anatomical Collection Method Collection Time Receive d Time (Source) Location / / Volume Laterality Throat 11/10/2014 10:20 11/10/2014 AM CDT 10:20 AM CDT Zaynab Roberts M.D. LAB MICROBIOLOGY - GEN ERAL ORDERABLES Performing Organization Address City/[facility] Phon e Number POWERCHART Rapid Strep A Screen (11/10/2014 10:20 AM CDT) [facility] Method Time Signature HXStrep A POWERCHART Screen Rapid HXFinal Negative for POWERCHART Strep Group A by rapid screen. HXFinal Culture POWERCHART confirmation to follow. Specimen (Source) Anatomical Collection Method Collection Time Re ceived Time Location / / Volume Laterality Throat 11/10/2014 10:20 AM CDT Zaynab Roberts M.D. LAB MICROBIOLOGY - GEN ERAL ORDERABLES Performing Organization Address City/State/[facility] Code Phon e Number POWERCHART documented in this encounter Visit Diagnoses Not on filedocumented in this encounter
--- OUTSIDE RECORDS SUMMARY | 2022-01-24 14:10 | XMS_ITS | Encounter Summary ---
:1995 Author Organization [facility] Address [address] [place] [address] Care Team Providers Name Role Phone Unavailable Primary Care Provider Unavailable Encounter Details Date Type Department Care Team Description 06/30/2012 Hospital Encounter HX [facility] Margarita Barr i, M.D. [address] [place] [phone] (Wo rk) Social History Tobacco Use Types Packs/Day Years Used Date Smoking Tobacco: Never Assessed Sex Assigned at Date Recorded Female 07/27/2019 2:28 PM CDT documented as of this encounter Last Filed Vital Signs Vital Sign Reading Time Taken Comments Blood Pressure 92/58 06/30/2012 10:01 AM FINANCIAL COMPLIANCE EXAMINER Pulse 56 06/30/2012 10:01 AM FINANCIAL COMPLIANCE EXAMINER Temperature - - Respiratory Rate 16 06/30/2012 10:01 AM FINANCIAL COMPLIANCE EXAMINER Oxygen Saturation - - Inhaled Oxygen Concentration - - Weight 62 kg (136 lb 11 oz) 06/30/2012 10:01 AM FINANCIAL COMPLIANCE EXAMINER Height 171 cm (5' 7.32) 06/30/2012 10:01 AM FINANCIAL COMPLIANCE EXAMINER Body Mass Index 21.2 06/30/2012 10:01 AM FINANCIAL COMPLIANCE EXAMINER Body Mass Index Percentile 47.97 % 06/30/2012 10:[address] Growth Chart: CDC (Girls, 2-20 Years) documented in this encounter Progress Notes Margarita Skelton M.D. - 06/30/2012 9:53 AM CST [id number] CHIEF COMPLAINT/REASON FOR VISIT Not feeling well. HISTORY OF PRESENT ILLNESS Chandrika has two concerns. She has had pain and pressure behind her ears over the past couple of days. She has also developed nausea without diarrhea. She was able to go to school today. She however was very distracted in math class by the nausea. No one else at home has a similar illness, although friends on the basketball team have not been feeling well. She and her teammates just won the [employer] game last night and plan to go to the [facility] on July 03. She hopes to feel much better by then. She has had no fevers, although has felt warm to the touch. CURRENT MEDICATIONS Medications are reviewed and are as outlined in the EMR including the addition of ondansetron. VITAL SIGNS HEIGHT: 171 cm WEIGHT: 62 kg TEMPERATURE: 36.3 RESPIRATIONS: 16 PULSE: 56 BLOOD PRESSURE: 92/58 PHYSICAL EXAM GENERAL: She has does not appear ill. ENT: Her tympanic membranes are both normal. Nasal mucosa is pink and moist without purulent discharge. Oropharynx is without erythema or exudate. Mucous membranes are moist. NECK: Without adenopathy. LUNGS: Clear. HEART: Regular rate and rhythm. ABDOMEN: Soft with no tenderness or masses. Bowel sounds are normal. IMPRESSION / REPORT / PLAN 1. Eustachian tube dysfunction. I have recommended Afrin nasal spray two sprays each nostril twice daily for four days. 2. Nausea. Likely a variation of gastroenteritis. Symptomatic measures are recommended including small sips of clear liquids. I did call a prescription for ondansetron to the pharmacy for her comfort. She will alert me to any new or worsening symptoms. Margarita Morrow M.D./mark anthony DOCID: [id number] Electronically Signed By: MARGARITA MORROW MD On: 07/01/2012 01:59 PM Source: [facility] MHSDOLBEYNONRADSYS Document Id: [id number] NCIAL COMPLIANCE EXAMINER documented in this encounter Miscellaneous Notes Miscellaneous - Margarita Skelton M.D. - 06/30/2012 10:30 PM FINANCIAL COMPLIANCE EXAMINER Ambulatory Patient Summary [address] [facility] [place] [address] Visit Information Name: CHANDRIKA ESQUEDA [facility] Number: [id number] Current Date: 06/30/2012 22:30:50 Physicians Attending Provider: MARGARITA MORROW MD Primary Care Provider: MARGARITA MORROW MD Your Medications Here is a list of your medications. It is important to take your medications as directed. Use a pillbox or chart to help remind you to take your medications. Please let your doctor or nurse know if you have problems taking your medications. Medication/Strength Dose Route Frequency Indications/Special Instructions/Comments ondansetron (ondansetron 4 mg oral tablet) 4 mg Oral three times a day norgestimate-ethinyl estradiol (Mononessa 0.25 mg-35 mcg oral [...] Malabsorption Active 02/15/2011 06/02/11 fructose / per [facility] Allergic reaction to drug, not elsewhere classified Active 06/03/2011 06/03/11 amoxicillin Your Upcoming Appointments Date Time Location Reason Provider No Appointments found Your Goals/Additional instructions: Source: [facility] POWERCHART Document Id: [id number] NCIAL COMPLIANCE EXAMINER Miscellaneous - Margarita Skelton M.D. - 06/30/2012 10:30 PM FINANCIAL COMPLIANCE EXAMINER Ambulatory Depart Summary [address] [place] [address] Visit Information Name: CHANDRIKA ESQUEDA [facility] Number: [id number] Visit Date: 06/30/2012 22:30:49 Attending Provider: MARGARITA MORROW MD Primary Care Provider: MARGARITA MORROW MD LILLY CHANDRIKA PACHECO has been given the following list of medications: Your Medications It is important to take your medications as directed. Use a pill box or chart to help remind you to take your medications. Please let your doctor or nurse know if you have problems taking your medications. Medication/Strength Dose Route Frequency Indications/Special Instructions/Comments ondansetron (ondansetron 4 mg oral tablet) 4 mg Oral three times a day norgestimate-ethinyl estradiol (Mononessa 0.25 mg-35 mcg oral tablet) 1 tab(s) Oral once a day Pt requesting 90 days Attention: If you have any medications at home that are not on this list, DO NOT take them until youcontact your provider for clarification. Additional Information: Source: [facility] POWERCHART Document Id: [id number] NCIAL COMPLIANCE EXAMINER Miscellaneous - Conversion, Historical Provider Ser - 06/30/2012 10:01 AM FINANCIAL COMPLIANCE EXAMINER Adult Mail Teller Intake/History Adult Mail Teller Intake/History Entered On: 06/30/2012 10:04 FINANCIAL COMPLIANCE EXAMINER Performed On: 06/30/2012 10:01 FINANCIAL COMPLIANCE EXAMINER by LOIS CASAS LPN Intake Chief Complaint : not feeling well, ears bothering Temperature Core : 36.3C(Converted to: 97.3DegF) (LOW) Peripheral Pulse Rate : 56/min (LOW) Respiratory Rate : 16/min Systolic Blood Pressure : 92mmHg Diastolic Blood Pressure : 58mmHg NIBP Mean : 69mmHg BP Location : Left upper extremity Blood Pressure Cuff Size : Regular Height : 171cm(Converted to: 5ft 7inch(es), 67.32inch(es)) Actual Weight : 62kg(Converted to: 136lb 11oz) Dosing Weight Clinic : 62.00kg Clinic BSA : 1.72 Body Mass Index : 21.20kg/m2 LOIS CASAS LPN - 06/30/2012 10:01 FINANCIAL COMPLIANCE EXAMINER General Info Information Given By : Patient Languages : Kyrgyz LOIS CASAS LPN - 06/30/2012 10:01 FINANCIAL COMPLIANCE EXAMINER Subjective Pain Symptoms : Yes LOIS CASAS [facility] - 06/30/2012 10:01 FINANCIAL COMPLIANCE EXAMINER Pain Pain Assessment Grid Pain 1 Location : Ear Laterality : Bilateral LOIS CASAS [facility] - 06/30/2012 10:01 FINANCIAL COMPLIANCE EXAMINER Dependent Habits Tobacco Use/Currently Using : No Exposure to Tobacco Smoke : Other: Never Smoking Status : Never smoker LOIS CASAS [facility] - 06/30/2012 10:01 FINANCIAL COMPLIANCE EXAMINER Tobacco Use Grid Last Use : never LOIS CASAS [facility] - 06/30/2012 10:01 FINANCIAL COMPLIANCE EXAMINER Caffeine Use Grid Caffeine Use : Current Type : Chocolate, Soft drinks Frequency : Occasionally LOIS CASAS [facility] - 06/30/2012 10:01 FINANCIAL COMPLIANCE EXAMINER Allergy Allergies (Active) amoxicillin Estimated Onset Date: <not entered> 06/03/2011 ; Reactions: rash ; Created By: PRICILA BEDOLLA CNP; Reaction Status: Active ; Category: Drug ; Substance: amoxicillin ; Type: Allergy ;Updated By: PRICILA BEDOLLA CNP; Reviewed Date: 06/30/2012 10:01 FINANCIAL COMPLIANCE EXAMINER Source: [facility] POWERCHART Document Id: [id number] documented in this encounter Plan of Treatment Not on filedocumented as of this encounter Visit Diagnoses Not on filedocumented in this encounter
--- OUTSIDE RECORDS SUMMARY | 2022-01-24 14:10 | XMS_ITS | Encounter Summary ---
:1995 Author Organization [facility] [place] [address] Care Team Providers Name Role Phone Unavailable Primary Care Provider Unavailable Encounter Details Date Type Department Care Team Description 12/23/2011 Hospital Encounter HX [facility] Zaynab Peterson M.D. [address] [place], [place] [phone] (Wo rk) Social History Tobacco Use Types Packs/Day Years Used Date Smoking Tobacco: Never Assessed Sex Assigned at Date Recorded Female 07/27/2019 2:28 PM CDT documented as of this encounter Plan of Treatment Not on filedocumented as of this encounter Visit Diagnoses Not on filedocumented in this encounter
--- OUTSIDE RECORDS SUMMARY | 2022-01-24 14:10 | XMS_ITS | Encounter Summary ---
:1995 Author Organization [facility] [place] [address] Care Team Providers Name Role Phone Unavailable Primary Care Provider Unavailable Encounter Details Date Type Department Care Team Description 12/22/2011 Hospital Encounter HX [facility] Zaynab Peterson M.D. [address] [place], [place] [phone] (Wo rk) Social History Tobacco Use Types Packs/Day Years Used Date Smoking Tobacco: Never Assessed Sex Assigned at Date Recorded Female 07/27/2019 2:28 PM CDT documented as of this encounter Plan of Treatment Not on filedocumented as of this encounter Visit Diagnoses Not on filedocumented in this encounter
--- OUTSIDE RECORDS SUMMARY | 2022-01-24 14:10 | XMS_ITS | Encounter Summary ---
:1995 Author Organization [facility] [place] [address] Care Team Providers Name Role Phone Unavailable Primary Care Provider Unavailable Encounter Details Date Type Department Care Team Description 05/09/2014 Hospital Encounter HX [facility] Margarita Barr i, M.D. [address] [place] [phone] (Wo rk) Social History Tobacco Use Types Packs/Day Years Used Date Smoking Tobacco: Never Assessed Sex Assigned at Date Recorded Female 07/27/2019 2:28 PM CDT documented as of this encounter Last Filed Vital Signs Vital Sign Reading Time Taken Comments Blood Pressure 102/60 05/09/2014 9:43 AM FREIGHT FORWARDER Pulse 72 05/09/2014 9:43 AM FREIGHT FORWARDER Temperature - - Respiratory Rate 16 05/09/2014 9:43 AM FREIGHT FORWARDER Oxygen Saturation - - Inhaled Oxygen Concentration - - Weight 68 kg (149 lb 14.6 oz) 05/09/2014 9:43 AM FREIGHT FORWARDER Height 173 cm (5' 8.11) 05/09/2014 9:43 AM FREIGHT FORWARDER Body Mass Index 22.72 05/09/2014 9:43 AM FREIGHT FORWARDER documented in this encounter Progress Notes Margarita Skelton M.D. - 05/09/2014 9:23 AM CST [id number] CHIEF COMPLAINT/ REASON FOR VISIT Medication refill HISTORY OF PRESENT ILLNESS Chandrika is a 19 year old female who presents to the clinic today for a refill of her controlmedication. She is on an oral contraceptive to control dysmenorrhea. She is doing well on her current dose with no problems. Chandrika also has some moles that she would like checked today. She has not noticed any changes or anything concerning, but just wants to make sure they are normal. She is complaining of some itching of her ears. The patient denies any additional questions or concerns at this time. MEDICATIONS Post-visit Medication Reconciliation Reviewed and are as outlined in the EMR including 1. Tri-Sprintec 1 oral tablet daily, renewed today. ALLERGIES Amoxicillin caused rash. SYSTEMS REVIEW See HPI. PAST MEDICAL/SURGICAL HISTORY MEDICAL HISTORY 1. Malabsorption SURGICAL HISTORY 1. Tonsillectomy and adenoidectomy. PREVENTIVE SERVICES: Tobacco use: None. VITAL SIGNS HEIGHT: 173 cm WEIGHT: 68 kg BMI: 22.72 kg/m2 TEMP: 36.2 Deg C PULSE: 72 /min RESP: 16 /min SYSTOLIC: 102 mmHg DIASTOLIC: 60 mmHg PHYSICAL EXAMINATION GENERAL: Patient is alert and oriented times three, in no acute distress, good hygiene and is dressed appropriately. ENT: Tympanic membranes are normal bilaterally. Oropharynx is without erythema or exudate. Nasal mucosa is without injection. Neck is without adenopathy. HEART: Regular rate and rhythm without murmur. LUNGS: Clear to auscultation. SKIN: She has a soft, raised moderately pigmented nevus on the left mid-back. Just inside the hairline on the left forehead and nape of the neck, there is a henry-colored macule approximately 1 cm in diameter. All of these appear benign. IMPRESSION/REPORT/PLAN 1. Dysmenorrhea, well-controlled on oral contraceptive preparation. This is renewed for the next year. 2. Skin lesions. These are benign, and she will continue to monitor. 3. Follow up: The patient will contact the clinic with any new or worsening symptoms. This document serves as a record of services personally performed by Margarita Morrow MD. It was created on their behalf by Christie Johnson, a trained medical officer. The creation of this record is basedon the scribe's personal observations and the provider's statements to them. This document has been c hecked and approved by the attending provider. Margarita Morrow M.D./narinder Electronically Signed By: MARGARITA SKELTON MD On: 06/18/2014 09:07 PM Source: [facility] MHSDOLBEYNONRADSYS Document Id: [id number] GHT FORWARDER documented in this encounter Miscellaneous Notes Miscellaneous - Margarita Skelton M.D. - 05/09/2014 8:34 PM FREIGHT FORWARDER Ambulatory Patient Summary [address] [id number] Visit Information Name: CHANDRIKA ESQUEDA [facility] Number: [id number] Current Date: 05/09/2014 20:34:56 Physicians Attending Provider: MARGARITA MORROW MD Primary [...] Take Indications/Special Instructions/Comments/Notes for Patient Medication Changes/Routing clindamycin topical (clindamycin 1% topical gel) 1 david, Topical, two times a day [facility] norgestimate-ethinyl estradiol (Tri-Sprintec oral tablet) 1 Tablet(s), Oral, once a day ondansetron (ondansetron 4 mg oral tablet) 1 Tablet(s), Oral, three times a day Stop Taking the Following Medications: Medication list as of 05-09-14 20:34 Attention: If you have any medications at home that are not on this list, DO NOT take them until youcontact your provider for clarification. Give a copy of your medication list to your primary care provider. Update your medication list any time medications or doses are changed and carry your medication list at all times in case of emergency. Electronically Signed By: MARGARITA MORROW MD Signed On:09-MAY-2014 20:34:40 Your Allergies & Intolerances Substance Reaction Symptoms Category Comments amoxicillin rash Drug Your Problem List Problem Status Onset Comments Malabsorption Active 02/15/2011 06/02/11 fructose / per [facility] Allergic reaction to drug, not elsewhere classified Active 06/03/2011 06/03/11 amoxicillin Your Upcoming Appointments Date Time Location Provider No Appointments found Attention: Contact your local Clinic if further appointment detail needed. Your Goals/Additional instructions: Source: [facility] POWERCHART Document Id: [id number] GHT FORWARDER Miscellaneous - Margarita Skelton M.D. - 05/09/2014 8:34 PM FREIGHT FORWARDER Ambulatory Discharge Medication List [address] [id number] Visit Information Name: CHANDRIKA ESQUEDA JUNIOR [facility] Number: [id number] Visit Date: 05/09/2014 20:34:55 Attending Provider: MARGARITA MORROW MD Primary Care [...] Take Indications/Special Instructions/Comments/Notes for Patient Medication Changes/Routing clindamycin topical (clindamycin 1% topical gel) 1 david, Topical, two times a day [facility] norgestimate-ethinyl estradiol (Tri-Sprintec oral tablet) 1 Tablet(s), Oral, once a day ondansetron (ondansetron 4 mg oral tablet) 1 Tablet(s), Oral, three times a day Stop Taking the Following Medications: Medication list as of 05-09-14 20:34 Attention: If you have any medications at home that are not on this list, DO NOT take them until youcontact your provider for clarification. Give a copy of your medication list to your primary care provider. Update your medication list any time medications or doses are changed and carry your medication list at all times in case of emergency. Electronically Signed By: MARGARITA MORROW MD Signed On:09-MAY-2014 20:34:40 Additional Information: Source: [facility] POWERCHART Document Id: [id number] GHT FORWARDER Miscellaneous - Conversion, Historical Provider Ser - 05/09/2014 9:43 AM FREIGHT FORWARDER Adult Portable Track Line Marker Intake/History Adult Portable Track Line Marker Intake/History Entered On: 05/09/2014 9:44 FREIGHT FORWARDER Performed On: 05/09/2014 9:43 FREIGHT FORWARDER by LOIS CASAS LPN Intake LMP Date : 04/11/14 LOIS CASAS LPN - 05/09/2014 9:45 FREIGHT FORWARDER Chief Complaint : control refill Temperature Core : 36.2 DegC(Converted to: 97.2 DegF) (LOW) Peripheral Pulse Rate : 72 /min Respiratory Rate : 16 /min Systolic Blood Pressure : 102 mmHg Diastolic Blood Pressure : 60 mmHg NIBP Mean : 74 mmHg BP Location : Right upper extremity Blood Pressure Cuff Size : Regular Height : 173 cm(Converted to: 5 ft 8 inch(es), 68 inch(es)) Actual Weight : 68 kg(Converted to: 149 lb 15 oz) Dosing Weight Clinic : 68 kg Clinic BSA : 1.81 Body Mass Index : 22.72 kg/m2 LOIS CASAS LPN - 05/09/2014 9:43 FREIGHT FORWARDER General Info Information Given By : Patient Languages : Japanese Is Patient Female and 13-50 no hysterectomy : Yes Status : Patient denies Are you ? : No LOIS CASAS LPN - 05/09/2014 9:43 FREIGHT FORWARDER Subjective Pain Symptoms : No LOIS CASAS LPN - 05/09/2014 9:43 FREIGHT FORWARDER Dependent Habits Tobacco Use/Currently Using : No Exposure to Tobacco Smoke : Other: Never Smoking Status : Never smoker LOIS CASAS [facility] - 05/09/2014 9:43 FREIGHT FORWARDER Tobacco Use Grid Last Use : never LOIS CASAS [employer] - 05/09/2014 9:43 FREIGHT FORWARDER Caffeine Use Grid Caffeine Use : Current Type : Chocolate, Soft drinks Frequency : Occasionally LOIS CASAS [employer] - 05/09/2014 9:43 FREIGHT FORWARDER Recreational Drug Use Grid Drug Use : None LOIS CASAS [employer] - 05/09/2014 9:43 FREIGHT FORWARDER ID Screen Travel Within Last 21 Days : No LOIS CASAS [employer] - 05/09/2014 9:43 FREIGHT FORWARDER Source: Own Products Document Id: [id number] FREIGHT FORWARDER!3 Miscellaneous - Conversion, Historical Provider Ser - 05/09/2014 9:43 AM FREIGHT FORWARDER Health Assessment Health Assessment Entered On: 05/09/2014 9:45 FREIGHT FORWARDER Performed On: 05/09/2014 9:43 FREIGHT FORWARDER by LOIS CASAS LPN Health Assessment Complete Health Assessment Complete or Modified : Annual Health Assessment Annual Health Assessment Completed : Yes ANTONY ZEFERINO, LOIS CAROL [employer] - 05/09/2014 9:43 FREIGHT FORWARDER Nutrition Nutrition Risk Factors by History Adult : None LOIS CASAS [facility] - 05/09/2014 9:43 FREIGHT FORWARDER Functional Current Daily Living Assistance : None ANTONY ZEFERINOLOIS [employer]ANE [employer] - 05/09/2014 9:43 FREIGHT FORWARDER Dependent Habits Tobacco Use/Currently Using : No Exposure to Tobacco Smoke : Other: Never Smoking Status : Never smoker LOIS CASAS [facility] - 05/09/2014 9:43 FREIGHT FORWARDER Tobacco Use Grid Last Use : never LOIS CASAS [facility] - 05/09/2014 9:43 FREIGHT FORWARDER Caffeine Use Grid Caffeine Use : Current Type : Chocolate, Soft drinks Frequency : Occasionally ANTONY GILFREDY LOISDIDIER VELA LPN - 05/09/2014 9:43 FREIGHT FORWARDER Recreational Drug Use Grid Drug Use : None ANTONY ZEFERINO, LOIS CAROL [employer] - 05/09/2014 9:43 FREIGHT FORWARDER Psychosocial Domestic Abuse Concerns : None Hoahaoism Preference : Unknown LOIS CASAS [employer] - 05/09/2014 9:43 FREIGHT FORWARDER Advance Directive Advanced Directives : No Advance Directive Additional Information : No LOIS CASAS [employer] - 05/09/2014 9:43 FREIGHT FORWARDER Educ Needs Learning Style Preference Adult Grid Patient : Printed materials Family : Printed materials LOIS CASAS [employer] - 05/09/2014 9:43 FREIGHT FORWARDER Source: [facility] POWERCHART Document Id: [id number] FREIGHT FORWARDER!33 documented in this encounter Plan of Treatment Not on filedocumented as of this encounter Visit Diagnoses Not on filedocumented in this encounter
--- OUTSIDE RECORDS SUMMARY | 2022-01-24 14:10 | XMS_ITS | Encounter Summary ---
:1995 Author Organization [facility] [place] [address] Care Team Providers Name Role Phone Unavailable Primary Care Provider Unavailable Encounter Details Date Type Department Care Team Description 07/25/2014 Hospital Encounter HX [facility] Fabi Kam M.D. [address] [place], [place] [address] (Wo rk) Social History Tobacco Use Types Packs/Day Years Used Date Smoking Tobacco: Never Assessed Sex Assigned at Date Recorded Female 07/27/2019 2:28 PM CDT documented as of this encounter Last Filed Vital Signs Vital Sign Reading Time Taken Comments Blood Pressure 110/60 07/25/2014 10:00 AM CDT Pulse 80 07/25/2014 10:00 AM CDT Temperature - - Respiratory Rate 16 07/25/2014 10:00 AM CDT Oxygen Saturation - - Inhaled Oxygen Concentration - - Weight 70.8 kg (156 lb 1.4 oz) 07/25/2014 10:00 AM CDT Height 173 cm (5' 8.11) 07/25/2014 9:57 AM CDT Body Mass Index 23.66 07/25/2014 9:57 AM CDT documented in this encounter Progress Notes Kylah Kam M.D. - 07/25/2014 9:56 AM CDT [id number] CHIEF COMPLAINT/REASON FOR VISIT Vaginal discharge. HISTORY OF PRESENT ILLNESS A 19-year-old female presents to clinic secondary to vaginal discharge which has been going on for some time. She was initially on MonoNessa OCPs both for dysmenorrhea and these symptoms. Was changed to Sprintec with a generic formulation. While her cramps are better her skin is a bit worse on this product and the discharge is a become very aggravating. She did discuss it with her regular health careprovider. She did see provider up at but her college in [place] and had complete STD evaluation and empiric treatment for bacterial vaginosis. She has only been with 1 partner and he has only been with 1 partner. He is having no symptoms. She is frustrated with the discharge as it is staining her clothing and can be odiferous. EMR reviewed. MEDICATIONS Desogen OCP to begin with her next pill pack. ALLERGIES Amoxicillin led to a rash. SYSTEMS REVIEW CONSTITUTIONAL: As noted above. HEENT: No acute concerns. CARDIOVASCULAR: No chest pain. RESPIRATORY: No shortness of breath. GI: Does have a malabsorption syndrome and is quite sensitive to sugars. Avoids fruits and vegetables and does eat a somewhat limited diet. : See HPI and past medical/surgical history. MUSCULOSKELETAL: No acute concerns. INTEGUMENTARY: No rashes at the present time. NEUROLOGIC: No seizures or syncopal events. PSYCHIATRIC: No acute concerns. ENDOCRINE: No history of diabetesor thyroid problems. HEMATOLOGIC/LYMPHATIC: See no history of anemia. ALLERGIC/IMMUNOLOGIC: See above . PAST MEDICAL/SURGICAL HISTORY Tonsillectomy with adenoidectomy. OTHER HEALTH PROBLEMS: 1. Dysmenorrhea currently stable. 2. Malabsorption. Dietary controlled. PREVENTIVE SERVICES Tobacco: None. Pap smear: Not applicable secondary to stated age. Chlamydia: 07/25/2014. Colon screen: Not applicable secondary to stated age. Depression: No. Asthma: No. Lipids: Not applicable secondary to body habitus. Tetanus: 07/09/2006. Pneumovax: Not applicable secondary to stated age. Influenza declines this year. SOCIAL HISTORY Alcohol a few times per year, a soda each day. FAMILY HISTORY Sister treated for leukemia. Grandparents have diabetes. VITAL Weight 70.8 kg. Temperature 36.6, respiratory rate 16, pulse 80, systolic 110, diastolic 60. PHYSICAL EXAMINATION GENERAL: Neatly dressed, well groomed. GENITOURINARY: Pubic hair distribution appropriate for patient's body habitus, stated age. Supple vaginal vault. A thin, yellowish, odiferous vaginal discharge. No cervical motion tenderness with wet prep collection. Chlamydia collected. DIAGNOSTICS Unremarkable wet prep, chlamydia pending. IMPRESSION/REPORT/PLAN 1. Vaginitis, suspect an overgrowth syndrome. 2. Contraception discussion. 3. Dysmenorrhea, currently stable. 4. Malabsorption. PLAN: Supportive measures discussed in detail. Will recommend changing to a different OCP formulation to see if we could find one that her results in a shorter menstrual cycle and less secretions. Follow up the Chlamydia accordingly. Discussed other dietary supportive measures in detail. Signs and symptoms leading to emergent evaluation are reviewed. She is comfortable with this plan. Spent 15 of the25 minute visit in discussion. Kylah Kam M.D./colin Electronically Signed By: KYLAH KAM MD On: 07/26/2014 02:08 PM Modified by and Electronically Signed by: KYLAH KAM MD On: 07/26/2014 02:08 PM Source: [facility] MHSDOLBEYNONRADSYS Document Id: [id number] documented in this encounter Nursing Notes Leandra Davenport L.PJoshuaNJoshua - 07/27/2014 11:56 AM CDT Labs 07-25-14 Result card sent. Electronically Signed By: LEANDRA DAVENPORT LPN On: 07/27/2014 11:56 AM Source: [facility] POWERCHART Document Id: [id number] documented in this encounter Miscellaneous Notes Miscellaneous - Kylah Kam M.D. - 07/25/2014 12:20 PM CDT Ambulatory Patient Summary [address] [phone] Visit Information Name: CHANDRIKA ESQUEDA [facility] Number: [id number] Current Date: 07/25/2014 12:20:52 Physicians Attending Provider: KYLAH KAM MD Primary Care Provider: MARGARITA PALAFOX MD [...] tablet) 1 Tablet(s), Oral, once a day New Routed to [address] [phone] norgestimate-ethinyl estradiol (Tri-Sprintec oral tablet) 1 Tablet(s), Oral, once a day Stop Taking the Following Medications: Medication list as of 07-25-14 12:20 Attention: If you have any medications at home that are not on this list, DO NOT take them until youcontact your provider for clarification. Give a copy of your medication list to your primary care provider. Update your medication list any time medications or doses are changed and carry your medication list at all times in case of emergency. Electronically Signed By: KYLAH KAM MD Signed On:25-JUL-2014 12:20:43 Your Allergies & Intolerances Substance Reaction Symptoms Category Comments amoxicillin rash Drug Your Problem List Problem Status Onset Comments Malabsorption Active 02/15/2011 06/02/11 fructose / per [facility] Allergic reaction to drug, not elsewhere classified Active 06/03/2011 06/03/11 amoxicillin Your Upcoming Appointments Date Time Location Provider No Appointments found Attention: Contact your local Clinic if further appointment detail needed. Your Goals/Additional instructions: Source: [facility] POWERCHART Document Id: [id number] Miscellaneous - Kylah Kam M.D. - 07/25/2014 12:20 PM CDT Ambulatory Discharge Medication List [place] [id number] [facility] [id number] Visit Information Name: CHANDRIKA ESQUEDA [facility] Number: [id number] Visit Date: 07/25/2014 12:20:51 Attending Provider: KYLAH KAM MD Primary Care Provider: MARGARITA PALAFOX MD [...] tablet) 1 Tablet(s), Oral, once a day New Routed to [address] [place] [phone] norgestimate-ethinyl estradiol (Tri-Sprintec oral tablet) 1 Tablet(s), Oral, once a day Stop Taking the Following Medications: Medication list as of 07-25-14 12:20 Attention: If you have any medications at home that are not on this list, DO NOT take them until youcontact your provider for clarification. Give a copy of your medication list to your primary care provider. Update your medication list any time medications or doses are changed and carry your medication list at all times in case of emergency. 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 discharge Temperature Core : 36.6 DegC(Converted to: 97.9 DegF) Peripheral Pulse Rate : 80 /min Respiratory Rate : 16 /min Systolic Blood Pressure : 110 mmHg Diastolic Blood Pressure : 60 mmHg NIBP Mean : 77 mmHg BP Location : Left upper extremity Blood Pressure Cuff Size : Regular Actual Weight : 70.8 kg(Converted to: 156 lb 1 oz) Dosing Weight Clinic : 70.8 kg LEANDRA DAVENPORT LPN - 07/25/2014 10:00 CDT General Info Languages : Syriac Is Patient Female and 13-50 no hysterectomy : Yes Status : Patient denies Are you ? : No LEANDRA DAVENPORT LPN - 07/25/2014 10:00 CDT Subjective Pain Symptoms : No LEANDRA DAVENPORT LPN - 07/25/2014 10:00 CDT Dependent Habits Tobacco Use/Currently Using : No Tobacco Use/Last 12 months : No Exposure to Tobacco Smoke : Other: Never Smoking Status : Never smoker LEANDRA DAVENPORT LPN - 07/25/2014 10:00 CDT Tobacco Use Grid Last Use : never LEANDRA DAVENPORT LPN - 07/25/2014 10:00 CDT Caffeine Use Grid Caffeine Use : Current Type : Chocolate, Soft drinks Frequency : Occasionally LEANDRA DAVENPORT LPN - 07/25/2014 10:00 CDT Recreational Drug Use Grid Drug Use : None LEANDRA DAVENPORT LPN - 07/25/2014 10:00 CDT ID Screen Travel Within Last 21 Days : No Contact with someone with Ebola : No LEANDRA DAVENPORT LPN - 07/25/2014 10:00 CDT Source: [facility] Document Id: [id number] CDT!39 documented in this encounter Plan of Treatment Not on filedocumented as of this encounter Procedures Procedure Name Priority Date/Time Associated Comments Diagnosis WET PREP EXAM, Routine 07/25/2014 10:30 AM Result s for this UROGENITAL CDT procedure are i n the results section. C TRACH AMP SRC Routine 07/25/2014 10:28 AM Resul ts for this CDT procedure are i n the results section. C TRACH AMP RNA Routine 07/25/2014 10:28 AM Resul ts for this CDT procedure are i n the results section. documented in this encounter Results Wet Prep Exam, Urogenital (07/25/2014 10:30 AM CDT) [facility] gist Method Time Signature HXWet Prep POWERCHART HXFinal No yeast, POWERCHART Trichomonas, clue cells, or sperm seen. HXFinal large amt. of POWERCHART bacterial rods and lge amt of wbc's Specimen (Source) Anatomical Collection Method Collection Time Re ceived Time Location / / Volume Laterality Vagina 07/25/2014 10:30 AM CDT Kylah Kam M.D. LAB MICROBIOLOGY - GENERAL O RDERABLES Performing Organization Address City/[facility] Phon e Number POWERCHART HX-C trach Amp RNA (07/25/2014 10:28 AM CDT) [facility] gist Method Time Signature Chlamydia Negative POWERCHART trachomatis amplified RNA Specimen (Source) Anatomical Collection Method Collection Time Re ceived Time Location / / Volume Laterality 07/25/2014 10:28 AM CDT Narrative POWERCHART - 07/26/2014 7:41 PM CDT Test Performed by: [place] [address] Screen Printing Loader Unloader: Rishi Gauthier II, M.D., Ph.D. Kylah Kam M.D. LAB HISTORICAL ORDERS Performing Organization Address City/[facility]/ZIP Code Phon e Number POWERCHART HX-C trach Amp Src (07/25/2014 10:28 AM CDT) [facility] Method Time Signature HXC trach Amp Endocervical POWERCHART Src-[place] Specimen (Source) Anatomical Collection Method Collection Time Re ceived Time Location / / Volume Laterality 07/25/2014 10:28 AM CDT Kylah Kam M.D. LAB HISTORICAL ORDERS Performing Organization Address City/[facility] Code Phon e Number POWERCHART documented in this encounter Visit Diagnoses Not on filedocumented in this encounter
--- OUTSIDE RECORDS SUMMARY | 2022-01-24 14:10 | XMS_ITS | Encounter Summary ---
:1995 Author Organization [facility] [place] [address] Care Team Providers Name Role Phone Unavailable Primary Care Provider Unavailable Encounter Details Date Type Department Care Team Description 08/17/2012 Hospital Encounter [facility]X [facility] Sa chalino Sood M.D. 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 - 08/17/2012 10:49 AM CDT [id number] CHIEF COMPLAINT/REASON FOR VISIT Nasal congestion, cough, dizziness. HISTORY OF PRESENT ILLNESS Five days ago, while shopping, she felt dizzy, as though she might pass out. She had to sit down repeatedly until the feeling passed. She had prominent nasal congestion which remains. Intermittent bifrontal headache. Now she has developed a sore throat and chest congestion. She coughs, but feels it isonly minimally effective. She stayed home from school yesterday, exhausted with her symptoms. She slept well last night, but awoke today feeling no better. No measured fever, shakes or chills. At times she feels warm and sweaty. CURRENT MEDICATIONS See EMR. ALLERGIES See EMR. VITAL SIGNS See EMR. PHYSICAL EXAMINATION GENERAL: Hyponasal voice. Breathing primarily through her mouth. HEART: Normal S1 and S2 without murmurs. LUNGS: Clear to auscultation. Good air exchange. EYES: No scleral injection or icterus. ENT: Normal tympanic membranes. Nasal mucosa erythematous with swollen inferior turbinates. Pharynx nonerythematous. Tonsils absent. LYMPH NODES: No anterior or posterior cervical lymph node enlargement. IMPRESSION/REPORT/PLAN Sinusitis. She is treated with azithromycin because of an amoxicillin allergy. Frida Sood M.D./ashlie Electronically Signed By: FRIDA SOOD MD On: 08/18/2012 02:24 PM Source: [facility] MHSDOLBEYNONRADSYS Document Id: [id number] documented in this encounter Miscellaneous Notes Miscellaneous - Frida Sood M.D. - 08/17/2012 11:08 AM CDT Ambulatory Patient Summary [address] [address] Visit Information Name: CHANDRIKA ESQUEDA [facility] Number: [id number] Current Date: 08/17/2012 11:08:00 Physicians Attending Provider: FRIDA SOOD MD Primary Care Provider: MARGARITA MORROW MD Your Medications Here is a list of your medications. It is important to take your medications as directed. Use a pillbox or chart to help remind you to take your medications. Please let your doctor or nurse know if you have problems taking your medications. Medication/Strength Dose Route Frequency Indications/Special Instructions/Comments azithromycin (Zithromax Z-Alfred 250 mg oral tablet) 2 tabls today then 1 tablet daily for next four days Oral once a day norgestimate-ethinyl estradiol (Mononessa 0.25 mg-35 [...] No Appointments found Your Goals/Additional instructions: Source: [facility] POWERCHART Document Id: [id number] Miscellaneous - Frida Sood M.D. - 08/17/2012 11:08 AM CDT Ambulatory Depart Summary [address] [address] Visit Information Name: LILLYCHANDRIKA JUNIOR [facility] Number: [id number] Visit Date: 08/17/2012 11:08:00 Attending Provider: FRIDA SOOD MD Primary Care Provider: MARGARITA MORROW MD LILLYRITESHISABEL PACHECO has been given the following list of medications: Your Medications It is important to take your medications as directed. Use a pill box or chart to help remind you to take your medications. Please let your doctor or nurse know if you have problems taking your medications. Medication/Strength Dose Route Frequency Indications/Special Instructions/Comments azithromycin (Zithromax Z-Alfred 250 mg oral tablet) 2 tabls today then 1 tablet daily for next four days Oral once a day norgestimate-ethinyl estradiol (Mononessa 0.25 mg-35 mcg oral tablet) 1 tab(s) Oral once a day Pt requesting 90 days Attention: If you have any medications at home that are not on this list, DO NOT take them until youcontact your provider for clarification. Additional Information: Source: [facility] [email or web address] Document Id: [id number] Miscellaneous - Conversion, Historical Provider Ser - 08/17/2012 10:55 AM CDT Pediatric Nurse Prn Intake/History Pediatric Nurse Prn Intake/History Entered On: 08/17/2012 10:57 CDT Performed On: 08/17/2012 10:55 CDT by LUCIE NICHOLS LPN Intake Chief Complaint : cold since thursday night, throat started hurting last night with a cough present this am Temperature Core : 37 DegC(Converted to: 98.6 DegF) Peripheral Pulse Rate : 70 /min Respiratory Rate : 16 /min Systolic Blood Pressure : 110 mmHg Diastolic Blood Pressure : 62 mmHg NIBP Mean : 78 mmHg BP Location : Left upper extremity Blood Pressure Cuff Size : Regular Actual Weight : 62.5 kg(Converted to: 137 lb 13 oz) Weight Source : Standing scale Dosing Weight Clinic : 62.5 kg LUCIE NICHOLS LPN - 08/17/2012 10:55 CDT General Info Preferred Name : Chandrika Languages : Nigerian LUCIE NICHOLS LPN - 08/17/2012 10:55 CDT Subjective Pain Symptoms : No LUCIE NICHOLS LPN - 08/17/2012 10:55 CDT Dependent Habits Tobacco Use/Currently Using : No Exposure to Tobacco Smoke : Other: Never Smoking Status : Never smoker LUCIE NICHOLS LPN - 08/17/2012 10:55 CDT Tobacco Use Grid Last Use : never LUCIE NICHOLS LPN - 08/17/2012 10:55 CDT Caffeine Use Grid Caffeine Use : Current Type : Chocolate, Soft drinks Frequency : Occasionally LUCIE NICHOLS LPN - 08/17/2012 10:55 CDT [facility] Document Id: [id number] CDT!31 Miscellaneous - Conversion, Historical Provider Ser - 08/17/2012 10:53 AM CDT Health Assessment Health Assessment Entered On: 08/17/2012 10:54 CDT Performed On: 08/17/2012 10:53 CDT by LUCIE NICHOLS LPN Health Assessment Complete Health Assessment Complete or Modified : Annual Health Assessment Annual Health Assessment Completed : Yes LUCIE NICHOLS LPN - 08/17/2012 10:53 CDT Nutrition Nutrition Risk Factors by History Adult : None Home Diet : Regular Eating Difficulties : None LUCIE NICHOLS LPN 08/17/2012 10:53 CDT Functional Current Daily Living Assistance : None LUCIE NICHOLS LPN 08/17/2012 10:53 CDT Dependent Habits Tobacco Use/Currently Using : No Exposure to Tobacco Smoke : Other: Never Smoking Status : Never smoker LUCIE NICHOLS LPN 08/17/2012 10:53 CDT Tobacco Use Grid Last Use : never LUCIE NICHOLS LPN 08/17/2012 10:53 CDT Alcohol Use : No LUCIE NICHOLS LPN 08/17/2012 10:53 CDT Caffeine Use Grid Caffeine Use : Current Type : Chocolate, Soft drinks Frequency : Occasionally LUCIE NICHOLS LPN - 08/17/2012 10:53 CDT Psychosocial Domestic Abuse Concerns : None LUCIE NICHOLS LPN 08/17/2012 10:53 CDT Advance Directive Advanced Directives : No LUCIE NICHOLS LPN 08/17/2012 10:53 CDT Educ Needs Learning Style Preference Adult Grid Patient : Demonstration, Printed materials, Verbal explanation, Video/Educational TV Family : Demonstration, Printed materials, Verbal explanation, Video/Educational TV LUCIE NICHOLS LPN - 08/17/2012 10:53 CDT Source: [facility] [email or web address] Document Id: [id number] CDT!31 documented in this encounter Plan of Treatment Not on filedocumented as of this encounter Visit Diagnoses Not on filedocumented in this encounter
--- OUTSIDE RECORDS SUMMARY | 2022-01-24 14:10 | XMS_ITS | Encounter Summary ---
:1995 Author Organization [facility] [place] [address] Care Team Providers Name Role Phone Unavailable Primary Care Provider Unavailable Encounter Details Date Type Department Care Team Description 06/03/2011 Hospital Encounter HX [facility] LAB Jessy Starks A PRN, C.N.P. [address] [place], [place] [phone] (Wo rk) Social History Tobacco Use Types Packs/Day Years Used Date Smoking Tobacco: Never Assessed Sex Assigned at Date Recorded Female 07/27/2019 2:28 PM CDT documented as of this encounter Plan of Treatment Not on filedocumented as of this encounter Procedures Procedure Name Priority Date/Time Associated Comments Diagnosis POCT MONONUCLEOSIS Routine 06/03/2011 1:46 PM Res ults for this SCREEN KITCHENWHERE MAKER procedure are i n the results section. documented in this encounter Results Mononucleosis Screen, POCT (06/03/2011 1:46 PM KITCHENWHERE MAKER) [facility] Method Time Signature Infectious POWERCHART [place] Test, S HXFinal Negative POWERCHART HXFinal Reference: POWERCHART Negative Specimen (Source) Anatomical Collection Method Collection Time Re ceived Time Location / / Volume Laterality Blood 06/03/2011 1:46 PM KITCHENWHERE MAKER Jessy Starks APRN, C.N.P. LAB POCT ORDERABLES-MANUAL Performing Organization Address City/State/ZIP Code Phon e Number POWERCHART documented in this encounter Visit Diagnoses Not on filedocumented in this encounter
--- OUTSIDE RECORDS SUMMARY | 2022-01-24 14:10 | XMS_ITS | Encounter Summary ---
:1995 Author Organization [facility] [place] [address] Care Team Providers Name Role Phone Unavailable Primary Care Provider Unavailable Encounter Details Date Type Department Care Team Description 04/09/2012 Hospital [facility] NURSE Zaynab Nunn i, M.D. [address] [place] [phone] (Wo rk) Social History Tobacco Use Types Packs/Day Years Used Date Smoking Tobacco: Never Assessed Sex Assigned at Date Recorded Female 07/27/2019 2:28 PM CDT documented as of this encounter Plan of Treatment Not on filedocumented as of this encounter Visit Diagnoses Not on filedocumented in this encounter
--- OUTSIDE RECORDS SUMMARY | 2022-01-24 14:10 | XMS_ITS | Encounter Summary ---
:1995 Author Organization [facility] Address [address] [place] [address] Care Team Providers Name Role Phone Unavailable Primary Care Provider Unavailable Encounter Details Date Type Department Care Team Description 04/29/2013 Hospital Encounter HX [facility] Stephen Sarabia Jr., M.D. [address] [place], [place] [phone] (Wo rk) Social History Tobacco Use Types Packs/Day Years Used Date Smoking Tobacco: Never Assessed Sex Assigned at Date Recorded Female 07/27/2019 2:28 PM CDT documented as of this encounter Progress Notes Delicia Treviño, C.O.T. - 04/29/2013 11:20 AM CST [facility] Exam [facility] Exam Entered On: 04/29/2013 11:27 SAMPLE SEWER Performed On: 04/29/2013 11:20 SAMPLE SEWER by DELICIA TREVIÑO Chief Complaint and History Pain Symptoms : No Smoking Status : Never smoker Comment : Pt here for complete eye exam No [facility] co's Family History Reviewed : 04/29/2013 SAMPLE SEWER DELICIA TREVIÑO - 04/29/2013 11:20 SAMPLE SEWER Optometry Exam Familty History Grid Cancer : Sibling Diabetes : Grandparents DELICIA TREVIÑO - 04/29/2013 11:20 SAMPLE SEWER Vision Testing Right Eye Vision Testing : Without correction, 20/20, -1 Left Eye Vision Testing : Without correction, 20/20, -1 Both Eyes Vision Testing : Without correction, 20/20, -1 DELICIA TREVIÑO - 04/29/2013 11:20 SAMPLE SEWER Refraction Right Eye Manifest Grid Date : 04/22/2012 SAMPLE SEWER 04/29/2013 SAMPLE SEWER Performed by : Tech Tech Sphere : 0 -0.25 Visual Acuity Distance : 20/20 20/20 DELICIA TREVIÑO - 04/29/2013 11:20 SAMPLE SEWER DELICIA TREVIÑO - 04/29/2013 11:20 SAMPLE SEWER Left Eye Manifest Grid Date : 04/22/2012 SAMPLE SEWER 04/29/2013 SAMPLE SEWER Performed by : Tech Tech Sphere : 0 -0.25 Visual Acuity Distance : 20/20 20/20 DELICIA TREVIÑO - 04/29/2013 11:20 SAMPLE SEWER DELICIA TREVIÑO - 04/29/2013 11:20 SAMPLE SEWER Ocular Testing EOMS : Normal Pupils : PERRLA Cover Test : Normal Comment : méndez full DELICIA TREVIÑO - 04/29/2013 11:20 SAMPLE SEWER Intraoccular Pressures Intraoccular Pressures Grid Date : 04/22/2012 SAMPLE SEWER 04/22/2012 SAMPLE SEWER 04/29/2013 SAMPLE SEWER 04/29/2013 SAMPLE SEWER Eye : RE LE RE LE Applanation : 15 15 15 15 Eye Drops : Fluress Fluress Fluress Fluress DELICIA TREVIÑO - 04/29/2013 11:20 SAMPLE SEWER DELICIA TREVIÑO - 04/29/2013 11:20 SAMPLE SEWER DELICIA TREVIÑO - 04/29/2013 11:20 SAMPLE SEWER DELICIA TREVIÑO - 04/29/2013 11:20 SAMPLE SEWER Eye Drops Exam Date of Last Eye Exam : 04/29/2013 SAMPLE SEWER Phenylephrine 2.5% Eye Drops Eye : Both eyes Phenylephrine 2.5% Eye Drops Amount : One drop Phenylephrine 2.5% Eye Drops Time : 11:26 SAMPLE SEWER Tropicamide 1% Eye Drops Eye : Both eyes Tropicamide 1% Eye Drops Amount : One drop Tropicamide 1% Eye Drops Time : 11:26 SAMPLE SEWER DELICIA TREVIÑO - 04/29/2013 11:20 SAMPLE SEWER Ocular Health Ocular Health Ext Rt Eye Grid Ext Rt Eye - Lids/Lashes : Normal Ext Rt Eye - Conjunctiva : Normal Ext Rt Eye - Cornea : Normal Ext Rt Eye - A/C : Normal Ext Rt Eye - Iris : Normal Ext Rt Eye - Lens : Normal STEPHEN FIGUEROA MD - 04/29/2013 11:43 SAMPLE SEWER Ocular Health Ext Lt Eye Grid Ext Lt Eye - Lids/Lashes : Normal Ext Lt Eye - Conjunctiva : Normal Ext Lt Eye - Cornea : Normal Ext Lt Eye - A/C : Normal Ext Lt Eye - Iris : Normal Ext Lt Eye - Lens : Normal STEPHEN FIGUEROA MD - 04/29/2013 11:43 SAMPLE SEWER Ocular Health Int Rt Eye Grid Int Rt Eye - Vitreous : Normal Int Rt Eye - C/D : Normal Int Rt Eye - Margins : Normal Int Rt Eye - Color : Normal Int Rt Eye - Macula : Normal Int Rt Eye - Posterior Pole : Normal Int Rt Eye - Periphery : Normal Int Rt Eye - Vessels : Normal STEPHEN FIGUEROA MD - 04/29/2013 11:43 SAMPLE SEWER Ocular Health Int Lt Eye Grid Int Lt Eye - Vitreous : Normal Int Lt Eye - C/D : Normal Int Lt Eye - Margins : Normal Int Lt Eye - Color : Normal Int Lt Eye - Macula : Normal Int Lt Eye - Posterior Pole : Normal Int Lt Eye - Periphery : Normal Int Lt Eye - Vessels : Normal STEPHEN FIGUEROA MD - 04/29/2013 11:43 SAMPLE SEWER Assessment Findings : Myopia Plan : Return for complete exam in one year or PRN STEPHEN FIGUEROA MD - 04/29/2013 11:43 SAMPLE SEWER Source: [facility] POWERCHART Document Id: [id number] SAMPLE SEWER!36 LE SEWER documented in this encounter Miscellaneous Notes Miscellaneous - Stephen Figueroa M.D. - 04/29/2013 5:24 PM CST Ambulatory Patient Summary [address] [address] Visit Information Name: CHANDRIKA ESQUEDA [facility] Number: [id number] Current Date: 04/29/2013 17:24:08 Physicians Attending Provider: STEPHEN FIGUEROA MD Primary Care Provider: MARGARITA MORROW MD [...] Take Indications/Special Instructions/Comments/Notes for Patient Medication Changes/Routing norgestimate-ethinyl estradiol (Tri-Sprintec oral tablet) 1 Tablet(s), Oral, once a day ondansetron (ondansetron 4 mg oral tablet) 1 Tablet(s), Oral, three times a day Stop Taking the Following Medications: Medication list as of 04-29-13 17:24 Attention: If you have any medications at home that are not on this list, DO NOT take them until youcontact your provider for clarification. Give a copy of your medication list to your primary care provider. Update your medication list any time medications or doses are changed and carry your medication list at all times in case of emergency. Your Allergies & Intolerances Substance Reaction Symptoms Category Comments amoxicillin rash Drug Your Problem List Problem Status Onset Comments Malabsorption Active 02/15/2011 06/02/11 fructose / per [facility] Allergic reaction to drug, not elsewhere classified Active 06/03/2011 06/03/11 amoxicillin Your Upcoming Appointments Date Time Location Reason Provider No Appointments found Attention: Contact your local Clinic if further appointment detail needed. Your Goals/Additional instructions: Source: [facility] POWERCHART Document Id: [id number] LE SEWER Miscellaneous - Stephen Figueroa M.D. - 04/29/2013 5:24 PM CST Ambulatory Depart Summary [address] [address] Visit Information Name: CHANDRIKA ESQUEDA [facility] Number: [id number] Visit Date: 04/29/2013 17:24:06 Attending Provider: STEPHEN FIGUEROA MD Primary Care Provider: MARGARITA MORROW MD [...] Take Indications/Special Instructions/Comments/Notes for Patient Medication Changes/Routing norgestimate-ethinyl estradiol (Tri-Sprintec oral tablet) 1 Tablet(s), Oral, once a day ondansetron (ondansetron 4 mg oral tablet) 1 Tablet(s), Oral, three times a day Stop Taking the Following Medications: Medication list as of 04-29-13 17:24 Attention: If you have any medications at home that are not on this list, DO NOT take them until youcontact your provider for clarification. Give a copy of your medication list to your primary care provider. Update your medication list any time medications or doses are changed and carry your medication list at all times in case of emergency. Additional Information: Source: [facility] POWERCHART Document Id: [id number] LE SEWER documented in this encounter Plan of Treatment Not on filedocumented as of this encounter Visit Diagnoses Not on filedocumented in this encounter
--- OUTSIDE RECORDS SUMMARY | 2022-01-24 14:10 | XMS_ITS | Encounter Summary ---
:1995 Author Organization [facility] [place] [address] Care Team Providers Name Role Phone Unavailable Primary Care Provider Unavailable Encounter Details Date Type Department Care Team Description 01/21/2012 Hospital Encounter HX NO MAPPING Social History Tobacco Use Types Packs/Day Years Used Date Smoking Tobacco: Never Assessed Sex Assigned at Date Recorded Female 07/27/2019 2:28 PM CDT documented as of this encounter Plan of Treatment Not on filedocumented as of this encounter Visit Diagnoses Not on filedocumented in this encounter
--- OUTSIDE RECORDS SUMMARY | 2022-01-24 14:10 | XMS_ITS | Encounter Summary ---
:1995 Author Organization [facility] [place] [address] Care Team Providers Name Role Phone Unavailable Primary Care Provider Unavailable Encounter Details Date Type Department Care Team Description 08/10/2014 Hospital Encounter HX [facility] Margarita Barr i, M.D. [address] [place] [phone] (Wo rk) Social History Tobacco Use Types Packs/Day Years Used Date Smoking Tobacco: Never Assessed Sex Assigned at Date Recorded Female 07/27/2019 2:28 PM CDT documented as of this encounter Last Filed Vital Signs Vital Sign Reading Time Taken Comments Blood Pressure 100/60 08/10/2014 3:03 PM CDT Pulse 88 08/10/2014 3:03 PM CDT Temperature - - Respiratory Rate 16 08/10/2014 3:03 PM CDT Oxygen Saturation - - Inhaled Oxygen Concentration - - Weight 69 kg (152 lb 1.9 oz) 08/10/2014 3:03 PM CDT Height 173 cm (5' 8.11) 08/10/2014 3:03 PM CDT Body Mass Index 23.05 08/10/2014 3:03 PM CDT documented in this encounter Progress Notes Margarita Palafox M.D. - 08/10/2014 2:23 PM CDT [id number] CHIEF COMPLAINT/ REASON FOR VISIT Sinus infection. HISTORY OF PRESENT ILLNESS Chandrika is a 19 year old female who presents to the clinic today for a sinus infection. She statesthat her throat and ears are more irritated rather than hurt. She does states that her head feels very heavy and her neck is sore. Chandrika is has also been nauseous lately, most from the post nasal drip. She has had a slight cough, but this is more related to her congestion. These symptoms have beenoccurring for about a week. Chandrika also mentions that she has had a nagi on her abdomen for about a week. Her mother thought it was dry skin. The patient denies any additional questions or concerns at this time. MEDICATIONS Post-visit Medication Reconciliation Reviewed and are as outlined in the EMR dated 08/10/14. 1. Azithromycin 250 mg 2 tabs on day 1 and 1 tab on days 2-5. ALLERGIES Amoxicillin causes a rash. SYSTEMS REVIEW See HPI. PAST MEDICAL/SURGICAL HISTORY 1. Malabsorption. 2. Dysmenorrhea. 3. Tonsillectomy and adenoidectomy. PREVENTIVE SERVICES Tobacco use: none. VITAL SIGNS HEIGHT: 173 cm. WEIGHT: 69 kg. BMI: 23.05 kg/m2. TEMP: 36.6 Deg C. PULSE: 88 /min. RESP: 16 /min. SYSTOLIC: 100 mmHg. DIASTOLIC: 60 mmHg. PHYSICAL EXAMINATION GENERAL: Patient is alert and oriented times three, in no acute distress, good hygiene and is dressed appropriately. ENT: Tympanic membranes are normal bilaterally. Oropharynx is without erythema or exudate. Nasal mucosa is without injection. Neck is without adenopathy. Mild sinus tenderness to palpation. LYMPH NODES: Not palpably enlarged and no nodules are palpated. HEART: Regular rate and rhythm without murmur. LUNGS: Clear to auscultation. ABDOMEN: Soft and nontender with no masses. IMPRESSION/REPORT/PLAN 1. Acute sinusitis: We will treat this with Azithromycin 250 mg 2 tabs on day 1 and 1 tab days 2-5. Also recommended Afrin nasal spray to help with congestion. 2. Follow up: The patient will contact the clinic with any new or worsening symptoms. This document serves as a record of services personally performed by Margarita Sanchez MD. It was created on their behalf by Hyacinth Grant, a trained medical technologist generalist. The creation of this record is based on the scribe's personal observations and the provider's statements to them. This document has been checked and approved by the attending provider. Margarita Grantnzinski, M.D./ Electronically Signed By: MARGARITA PALAFOX MD On: 08/29/2014 06:24 PM Source: [facility] [email or web address] Document Id: [id number] documented in this encounter Miscellaneous Notes Telephone Encounter - Haydee Philip - 10/25/2014 4:07 PM CDT *Phone Message Document Contains Addenda Addendum by MARGARITA PALAFOX MD on 26 October 2014 21:35:52 CDT From: MARGARITA PALAFOX MD To: STEPHANI Tarrant Medication Refill; Sent: 10/26/2014 21:35:52 CDT Subject: RE: *Phone Message done From: HAYDEE PHILIP LPN (FB Tarrant Medication Refill) To: MARGARITA PALAFOX MD; Sent: 10/25/2014 16:07:18 CDT Subject: *Phone Message Caller is: ( ) Patient ( x ) Mother ( ) Father ( ) Spouse ( ) Daughter ( ) Son ( ) Pharmacy ( ) Other: Physician: Patient MRN #: Reason for Call: Pts mother calling on behalf of daughter. Needs refill of Desogen 0.15mg-0.03 mg tabs. Message: Is now going through [facility] and previous pharmacy sent over the Rx for the old one.Indicates has doses only until Thursday. Advice/Action: Please send to [id number] [phone] Source used: ( ) Verbalizes understanding of [...] back cell phone number ( ) Source: [facility] POWERCHART Document Id: [id number] Electronically signed by Conversion, [facility] Precision Lens Grinder [id number] at 09/28/2016 3:08 PM CDT Telephone Encounter - Conversion, Historical Provider Ser - 10/25/2014 12:28 PM CDT *Phone Message Document Contains Addenda Addendum by LOIS CASAS LPN on 25 October 2014 14:34:55 CDT From: LOIS CASAS LPN ([facility] Nurse) To: Rohan Medication Refill; Sent: 10/25/2014 14:34:55 CDT Subject: FW: *Phone Message From: INGE WOODY ([facility] Nurse) To: [facility] Nurse; Sent: 10/25/2014 12:28:24 CDT Subject: *Phone Message Caller is: ( ) Patient ( x ) Mother ( ) Father ( ) Spouse ( ) Daughter ( ) Son ( ) Pharmacy ( ) Other: Physician: Patient MRN #: Reason for Call: Message: S: patient's mom Oralia calling to speak with nurse B: needs doctors ok to refill a medication- they have switched to [facility] in [place]: [phone] Advice/Action: Source used: ( ) Verbalizes understanding [...] back cell phone number ( ) Source: [facility] WedWuCHART Document Id: [id number] Miscellaneous - Margarita Palafox M.D. - 08/10/2014 5:40 PM CDT Ambulatory Patient Summary [address] [id number] Visit Information Name: CHANDRIKA ESQUEDA [facility] Number: [id number] Current Date: 08/10/2014 17:40:11 Physicians Attending Provider: MARGARITA PALAFOX MD Primary Care Provider: MARGARITA PALAFOX MD [...] Take Indications/Special Instructions/Comments/Notes for Patient Medication Changes/Routing azithromycin (azithromycin 250 mg oral tablet) 2 tablets on day 1, then 1 tablet on days 2-5, Oral, as directed x 5 day(s) New Routed to [facility] [address] [place] [address] desogestrel-ethinyl estradiol (Desogen 0.15 mg-0.03 mg oral tablet) 1 Tablet(s), Oral, once a day *norgestimate-ethinyl estradiol (Tri-Sprintec oral tablet) 1 Tablet(s), Oral, once a day * You have let us know that you are not taking this medication as listed. Please talk with your primary care provider or the health care provider who prescribed the medication as soon as possible. Stop Taking the Following Medications: Medication list as of 08-10-14 17:40 Attention: If you have any medications at home that are not on this list, DO NOT take them until youcontact your provider for clarification. Give a copy of your medication list to your primary care provider. Update your medication list any time medications or doses are changed and carry your medication list at all times in case of emergency. Electronically Signed By: MARGARITA PALAFOX MD Signed On:10-AUG-2014 17:40:06 Your Allergies & Intolerances Substance Reaction Symptoms Category Comments amoxicillin rash Drug Your Problem List Problem Status Onset Comments Malabsorption Active 02/15/2011 06/02/11 fructose / per [facility] Allergic reaction to drug, not elsewhere classified Active 06/03/2011 06/03/11 amoxicillin Your Upcoming Appointments Date Time Location Provider 08/24/2014 08:40 [facility] Marissa Jimenez MD, Stephen Chamberlain Attention: Contact your local Clinic if further appointment detail needed. Your Goals/Additional instructions: Source: [facility] POWERCHART Document Id: [id number] Miscellaneous - Margarita Palafox M.D. - 08/10/2014 5:40 PM CDT Ambulatory Discharge Medication List [address] [phone] Visit Information Name: CHANDRIKA ESQUEDA [facility] Number: [id number] Visit Date: 08/10/2014 17:40:10 Attending Provider: MARGARITA PALAFOX MD Primary Care Provider: MARGARITA PALAFOX MD [...] Take Indications/Special Instructions/Comments/Notes for Patient Medication Changes/Routing azithromycin (azithromycin 250 mg oral tablet) 2 tablets on day 1, then 1 tablet on days 2-5, Oral, as directed x 5 day(s) New Routed to [facility] [address] [place] [address] desogestrel-ethinyl estradiol (Desogen 0.15 mg-0.03 mg oral tablet) 1 Tablet(s), Oral, once a day *norgestimate-ethinyl estradiol (Tri-Sprintec oral tablet) 1 Tablet(s), Oral, once a day * You have let us know that you are not taking this medication as listed. Please talk with your primary care provider or the health care provider who prescribed the medication as soon as possible. Stop Taking the Following Medications: Medication list as of 08-10-14 17:40 Attention: If you have any medications at home that are not on this list, DO NOT take them until youcontact your provider for clarification. Give a copy of your medication list to your primary care provider. Update your medication list any time medications or doses are changed and carry your medication list at all times in case of emergency. Electronically Signed By: MARGARITA PALAFOX MD Signed On:10-AUG-2014 17:40:06 Additional Information: Source: [facility] POWERCHART Document Id: [id number] Miscellaneous - Irma Bhatt, L.P.N. 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/History Entered On: 08/10/2014 15:07 CDT Performed On: 08/10/2014 15:03 CDT by IRMA BHATT Intake Chief Complaint : sinus drippage for past week and body aches Temperature Core : 36.6 DegC(Converted to: 97.9 DegF) Peripheral Pulse Rate : 88 /min Respiratory Rate : 16 /min Systolic Blood Pressure : 100 mmHg Diastolic Blood Pressure : 60 mmHg NIBP Mean : 73 mmHg BP Location : Left upper extremity Blood Pressure Cuff Size : Regular Height : 173 cm(Converted to: 5 ft 8 inch(es), 68 inch(es)) Actual Weight : 69 kg(Converted to: 152 lb 2 oz) Weight Source : Standing scale Dosing Weight Clinic : 69 kg Clinic BSA : 1.82 Body Mass Index : 23.05 kg/m2 IRMA BHATT 08/10/2014 15:03 CDT General Info Languages : Wallisian Is Patient Female and 13-50 no hysterectomy : Yes Status : Patient denies Are you ? : No IRMA BHATT 08/10/2014 15:03 CDT Subjective Pain Symptoms : Yes IRMA BHATT 08/10/2014 15:03 CDT Pain Scale Pain Scale Verbal 0-10 : Open IRMA BHATT 08/10/2014 15:03 CDT Pain Pain Assessment Grid Pain 1 Location : Other: body aches IRMA BHATT 08/10/2014 15:03 CDT Dependent Habits Tobacco Use/Currently Using : No Exposure to Tobacco Smoke : Other: Never Smoking Status : Never smoker IRMA BHATT 08/10/2014 15:03 CDT Tobacco Use Grid Last Use : never IRMA BHATT 08/10/2014 15:03 CDT Caffeine Use Grid Caffeine Use : Current Type : Chocolate, Soft drinks Frequency : Occasionally IRMA BHATT 08/10/2014 15:03 CDT Recreational Drug Use Grid Drug Use : None IRMA BHATT 08/10/2014 15:03 CDT ID Screen Travel Within Last 21 Days : No Contact with someone with Ebola : No IRMA BHATT 08/10/2014 15:03 CDT [facility] P[facility] Document Id: [id number] CDT!48 documented in this encounter Plan of Treatment Not on filedocumented as of this encounter Visit Diagnoses Not on filedocumented in this encounter
--- OUTSIDE RECORDS SUMMARY | 2022-01-24 14:10 | XMS_ITS | Encounter Summary ---
:1995 Author Organization [facility] [place] [address] Care Team Providers Name Role Phone Unavailable Primary Care Provider Unavailable Encounter Details Date Type Department Care Team Description 10/04/2013 [facility] Margarita Barr i, M.D. [address] [place] [phone] (Wo rk) Social History Tobacco Use Types Packs/Day Years Used Date Smoking Tobacco: Never Assessed Sex Assigned at Date Recorded Female 07/27/2019 2:28 PM CDT documented as of this encounter Last Filed Vital Signs Vital Sign Reading Time Taken Comments Blood Pressure 82/48 10/04/2013 2:09 PM CDT Pulse 72 10/04/2013 2:09 PM CDT Temperature - - Respiratory Rate 16 10/04/2013 2:09 PM CDT Oxygen Saturation - - Inhaled Oxygen Concentration - - Weight 64.5 kg (142 lb 3.2 oz) 10/04/2013 2:09 PM CDT Height 172 cm (5' 7.72) 10/04/2013 2:09 PM CDT Body Mass Index 21.8 10/04/2013 2:09 PM CDT documented in this encounter Progress Notes Margarita Skelton M.D. - 10/04/2013 1:49 PM CDT FM-LE CHIEF COMPLAINT/REASON FOR VISIT Sore throat. Chandrika has had a sore throat over the past 2 days. When she swallows, it radiates into both of her ears. She has not felt well but has not had fevers. She did have a sore throat in late September which was treated with Zmax. MEDICATIONS Reviewed and are as outlined in the EMR. VITAL SIGNS Height is 172 cm, weight is 64.5 kg. Temperature 36.8, respirations 16, pulse 72, blood pressure 82/48. PHYSICAL EXAMINATION GENERAL: She does not appear ill. ENT: Tympanic membranes are both normal. Oropharynx shows a small ulceration on the uvula and posterior oropharynx on the right of midline. NECK: Without adenopathy. LUNGS: Clear. HEART: Regular rate and rhythm. IMPRESSION/REPORT/PLAN Oral ulceration, consistent with virus, possibly a coxsackievirus. Symptomatic measures are recommended including Chloraseptic, saltwater gargles, Tylenol, ibuprofen, etc. She will follow up if no improvement or with worsening symptoms. Margarita Morrow M.D./colin Electronically Signed By: MARGARITA MORROW MD On: 10/24/2013 10:57 PM Source: [facility] MHSDOLBEYNONRADSYS Document Id: [id number] documented in this encounter Miscellaneous Notes Miscellaneous - Angela Strange R.N. - 05/08/2014 5:09 PM CST BCP... From: ANGELA STRANGE ([facility] Medication Refill) To: MARGARITA MORROW MD; Sent: 05/08/2014 17:09:52 PATIENT CASE MANAGER Subject: BCP... Caller is: ( ) Patient ( ) Mother ( ) Father ( ) Spouse ( ) Daughter ( ) Son ( truong/nicole ) Pharmacy ( ) Other: Provider: laura Pharmacy: Name of Medications Needing Refill: trinessa Last Refill Date: Additional Information:has appt with you on 05/09/14...Please fill at appt. Last / Future Appointment: 05/09/14 Disposition: ( ) Send to Pharmacy ( ) Call to Pharmacy ( ) Patient will grain picker Script ( ) Mail Rx to Patient Source: [facility] POWERCHART Document Id: [id number] Electronically signed by Conversion, [facility] Hydrographic Surveyor [id number] at 09/30/2016 8:48 PM CDT Telephone Encounter - Conversion, Historical Provider Ser - 03/03/2014 11:34 AM CDT *Phone Message Document Contains Addenda Addendum by ELSIE MCGRATH LPN on 03 March 2014 17:52:35 CDT mom notified Addendum by MARGARITA MORROW MD on 03 March 2014 17:47:21 CDT From: MARGARITA MORROW MD To: Laura Nurse; Sent: 03/03/2014 17:47:21 CDT Subject: RE: *Phone Message Ok rx sent for clindamycin gel Addendum by ELSIE MCGRATH LPN on 03 March 2014 17:40:49 CDT From: ELSIE MCGRATH LPN ( Laura Nurse) To: MARGARITA MORROW MD; Sent: 03/03/2014 17:40:49 CDT Subject: RE: *Phone Message The differin is not working per mom. Ok to send to local pharmacy and they will transfer it to [place]. Addendum by MARGARITA MORROW MD on 03 March 2014 17:29:31 CDT From: MARGARITA MORROW MD To: Laura Nurse; Sent: 03/03/2014 17:29:31 CDT Subject: FW: *Phone Message Please find out what meds and I can send a new rx to the pharmacy Addendum by HENRY CRUMP on 03 March 2014 11:36:03 CDT From: HENRY CRUMP ( ehmckay Nurse) To: MARGARITA MORROW MD; Sent: 03/03/2014 11:36:03 CDT Subject: FW: *Phone Message From: LEONARDO VALDERRAMA ([facility] Nurse) To: STEPHANI Morrow Nurse; Sent: 03/03/2014 11:34:49 CDT ! Subject: *Phone Message Caller is: ( ) Patient ( Oralia ) Mother ( ) Father ( ) Spouse ( ) Daughter ( ) Son ( ) Pharmacy ( ) Other: Physician: Patient MRN #: Reason for Call: Message: s: Mom called to talk to nurse regarding Chandrika b: the meds she is on are not working - wondering if you will give her something different a: wants to get this taken care of as soon as possible so she can get the new meds to Chandrika up in [place] this weekend r: Oralia wants call back as soon as possible at [phone] Advice/Action: Source used: ( ) Verbalizes understanding [...] back cell phone number ( ) Source: [facility] POWERCHART Document Id: [id number] Miscellaneous - Angela Strange, RJoshuaN. - 02/22/2014 11:53 AM CDT BCP Document Contains Addenda Addendum by MARGARITA MORROW MD on 22 February 2014 12:37:45 CDT From: MARGARITA MORROW MD Sent: 02/22/2014 12:37:45 CDT Subject: RE:BCP Approved Order:norgestimate-ethinyl estradiol (Tri-Sprintec oral tablet) 1 tab(s) PO Daily Qty: 84 tab(s) Refills: 0 Substitutions Allowed Route To Pharmacy - [facility] [id number] Signed by MARGARITA MORROW MD 02/22/2014 12:13:07 From: ANGELA STRANGE To: MARGARITA MORROW MD; Sent: 02/22/2014 11:53:30 CDT Subject: BCP On hold pending signature Order:norgestimate-ethinyl estradiol (Tri-Sprintec oral tablet) 1 tab(s) PO Daily Qty: 84 tab(s) Refills: 0 Substitutions Allowed Route To Pharmacy - [facility] [id number] Caller is: ( ) Patient ( ) Mother ( ) Father ( ) Spouse ( ) Daughter ( ) Son ( Truong/Nicole ) Pharmacy ( ) Other: Provider: Laura Pharmacy: Name of Medications Needing Refill: Trinessa Last Refill Date: Additional Information: Pt looking for 90 day refill... Last / Future Appointment: 10/04/13 Disposition: ( x ) Send to Pharmacy ( ) Call to Pharmacy ( ) Patient will grain picker Script ( ) Mail Rxto Patient Source: [facility] POWERCHART Document Id: [id number] Miscellaneous - Margarita Skelton M.D. - 10/04/2013 10:56 PM CDT Ambulatory Patient Summary [address] [id number] Visit Information Name: CHANDRIKA ESQUEDA [facility] Number: [id number] Current Date: 10/04/2013 22:56:12 Physicians Attending Provider: MARGARITA MORROW MD Primary Care Provider: MARGARITA MORROW MD CHANDRIKA ESQUEDA JUNIOR has been given [...] the Following Medications: Medication list as of 10-04-13 22:56 Attention: If you have any medications at [...] Electronically Signed By: MARGARITA MORROW MD Signed On:04-OCT-2013 22:56:02 Your Allergies & Intolerances Substance Reaction Symptoms Category Comments amoxicillin rash Drug Your Problem List Problem Status Onset Comments Malabsorption Active 02/15/2011 06/02/11 fructose / per [facility] Allergic reaction to drug, not elsewhere classified Active 06/03/2011 06/03/11 amoxicillin Your Upcoming Appointments Date Time Location Reason Provider No Appointments found Attention: Contact your local Clinic if further appointment detail needed. Your Goals/Additional instructions: Source: [facility] POWERCHART Document Id: [id number] Miscellaneous - Margarita Skelton M.D. - 10/04/2013 10:56 PM CDT Ambulatory Discharge Medication List [address] [id number] Visit Information Name: CHANDRIKA ESQUEDA [facility] Number: [id number] Visit Date: 10/04/2013 22:56:10 Attending Provider: MARGARITA MORROW MD Primary Care [...] the Following Medications: Medication list as of 10-04-13 22:56 Attention: If you have any medications at [...] Electronically Signed By: MARGARITA MORROW MD Signed On:04-OCT-2013 22:56:02 Additional Information: Source: [facility] POWERCHART Document Id: [id number] Miscellaneous - Conversion, Historical Provider Ser - 10/04/2013 2:09 PM CDT Adult Academic Services Professional Intake/History Adult Academic Services Professional Intake/History Entered On: 10/04/2013 14:11 CDT Performed On: 10/04/2013 14:09 CDT by LOIS CASAS LPN Intake Chief Complaint : sore throat, bilateral Temperature Core : 36.8 DegC(Converted to: 98.2 DegF) Peripheral Pulse Rate : 72 /min Respiratory Rate : 16 /min Systolic Blood Pressure : 82 mmHg (<LLOW) Diastolic Blood Pressure : 48 mmHg (<LLOW) NIBP Mean : 59 mmHg BP Location : Left upper extremity Blood Pressure Cuff Size : Regular Height : 172 cm(Converted to: 5 ft 8 inch(es), 68 inch(es)) Actual Weight : 64.5 kg(Converted to: 142 lb 3 oz) Dosing Weight Clinic : 64.5 kg Clinic BSA : 1.76 Body Mass Index : 21.8 kg/m2 LOIS CASAS [facility] 10/04/2013 14:09 CDT General Info Information Given By : Patient Languages : Turkmen LOIS CASAS [facility] - 10/04/2013 14:09 CDT Subjective Pain Symptoms : Yes LOIS CASAS [facility] 10/04/2013 14:09 CDT Pain Pain Assessment Grid Pain 1 Location : Throat LOIS CASAS [facility] - 10/04/2013 14:09 CDT Dependent Habits Tobacco Use/Currently Using : No Exposure to Tobacco Smoke : Other: Never Smoking Status : Never smoker LOIS CASAS [facility] - 10/04/2013 14:09 CDT Tobacco Use Grid Last Use : never LOIS CASAS [facility] 10/04/2013 14:09 CDT Caffeine Use Grid Caffeine Use : Current Type : Chocolate, Soft drinks Frequency : Occasionally LOIS CASAS [facility] - 10/04/2013 14:09 CDT Recreational Drug Use Grid Drug Use : None LOIS CASAS [facility] 10/04/2013 14:09 CDT [facility]: [facility] Group[facility] Document Id: [id number] CDT!40 documented in this encounter Plan of Treatment Not on filedocumented as of this encounter Visit Diagnoses Not on filedocumented in this encounter
--- OUTSIDE RECORDS SUMMARY | 2022-01-24 14:10 | XMS_ITS | Encounter Summary ---
:1995 Author Organization [facility] [place] [address] Care Team Providers Name Role Phone Unavailable Primary Care Provider Unavailable Encounter Details Date Type Department Care Team Description 06/20/2014 Hospital Encounter HX [facility] Zaynab Brar i, M.D. [address] [place] [phone] (Wo rk) Social History Tobacco Use Types Packs/Day Years Used Date Smoking Tobacco: Never Assessed Sex Assigned at Date Recorded Female 07/27/2019 2:28 PM CDT documented as of this encounter Last Filed Vital Signs Vital Sign Reading Time Taken Comments Blood Pressure 98/58 06/20/2014 10:26 AM BOILERMAKER Pulse 76 06/20/2014 10:26 AM BOILERMAKER Temperature - - Respiratory Rate 16 06/20/2014 10:26 AM BOILERMAKER Oxygen Saturation - - Inhaled Oxygen Concentration - - Weight 68 kg (149 lb 14.6 oz) 06/20/2014 10:26 AM BOILERMAKER Height 173 cm (5' 8.11) 06/20/2014 10:26 AM BOILERMAKER Body Mass Index 22.72 06/20/2014 10:26 AM BOILERMAKER documented in this encounter Progress Notes Zaynab Skelton M.D. - 06/20/2014 10:14 AM CST [id number] CHIEF COMPLAINT/ REASON FOR VISIT Ear pain HISTORY OF PRESENT ILLNESS Chandrika is a 19-year-old female who presents to the clinic today for ear pain. Her ears have been painful for about a week, more so in her left ear. She also has nasal congestion and a runny nose. The patient denies any additional questions or concerns at this time. MEDICATIONS Post-visit Medication Reconciliation Reviewed and are as outlined in the EMR including 1. Bactrim DS 800mg-160mg oral tablet 1 tablet by mouth, twice daily, for ten days ALLERGIES Amoxicillin-rash SYSTEMS REVIEW See HPI. PAST MEDICAL/SURGICAL HISTORY MEDICAL HISTORY 1. Malabsorption 2. Dysmenorrhea SURGICAL HISTORY 1. Tonsillectomy and adenoidectomy. PREVENTIVE SERVICES Tobacco use: None VITAL SIGNS HEIGHT: 173 cm. WEIGHT: 68 kg. BMI: 22.72 kg/m2. TEMP: 36.3 Deg C. PULSE: 76 /min. RESP: 16 /min. SYSTOLIC: 98 mmHg. DIASTOLIC: 58 mmHg. PHYSICAL EXAMINATION GENERAL: Patient is alert and oriented times three, in no acute distress, good hygiene and is dressed appropriately. ENT: Tympanic membranes are normal bilaterally. Oropharynx is without erythema or exudate. Inferior nasal turbinates are without injection. Neck is without adenopathy. Tenderness over the right maxillary sinus and tenderness to ear speculum in the left. LYMPH NODES: Not palpably enlarged and no nodules are palpated. HEART: Regular rate and rhythm without murmur. LUNGS: Clear to auscultation. IMPRESSION/REPORT/PLAN 1. Sinusitis. I have prescribed Bactrim as above. I have recommended Afrin nasal spray. 2. Follow up: The patient will contact the clinic with any new or worsening symptoms. This document serves as a record of services personally performed by Zaynab Sanchez MD. It was created on their behalf by Dianne Penaloza, a trained paramedical aide. The creation of this record is based on the scribe's personal observations and the provider's statements to them. This document has been chalo cked and approved by the attending provider. Zaynab Goodwin M.D./mery Electronically Signed By: ZAYNAB SKELTON MD On: 07/07/2014 08:39 AM Source: [facility] Document Id: [id number] ERMAKER documented in this encounter Miscellaneous Notes Miscellaneous - Zaynab Skelton M.D. - 06/20/2014 5:10 PM BOILERMAKER Ambulatory Patient Summary [place] [address] [id number] Visit Information Name: CHANDRIKA ESQUEDA [facility] Number: [id number] Current Date: 06/20/2014 17:10:09 Physicians Attending Provider: ZAYNAB SKELTON MD Primary Care Provider: ZAYNAB SKELTON MD LILLYADEBAYOCHANDRIKALUKE PACHECO has been given the following list [...] 1 david, Topical, two times a [facility] norgestimate-ethinyl estradiol (Tri-Sprintec oral tablet) 1 Tablet(s), Oral, once a day ondansetron (ondansetron 4 mg oral tablet) 1 Tablet(s), Oral, three times a day sulfamethoxazole-trimethoprim (Bactrim DS 800 mg-160 mg oral tablet) 1 Tablet(s), Oral, two times a day x 10 day(s) New Routed to [facility] [address] [facility] A[place] [id number] Stop Taking the Following Medications: Medication list as of 06-20-14 17:10 Attention: If you have any medications at [...] Electronically Signed By: ZAYNAB SKELTON MD Signed On:20-JUN-2014 17:10:04 Your Allergies & Intolerances Substance Reaction Symptoms Category Comments amoxicillin rash Drug Your Problem List Problem Status Onset Comments Malabsorption Active 02/15/2011 06/02/11 fructose / per [facility] Allergic reaction to drug, not elsewhere classified Active 06/03/2011 06/03/11 amoxicillin Your Upcoming Appointments Date Time Location Provider No Appointments found Attention: Contact your local Clinic if further appointment detail needed. Your Goals/Additional instructions: Source: [facility] POWERCHART Document Id: [id number] ERMAKER Miscellaneous - Zaynab Skelton M.D. - 06/20/2014 5:10 PM BOILERMAKER Ambulatory Discharge Medication List [address] [id number] Visit Information Name: CHANDRIKA ESQUEDA [facility] Number: [id number] Visit Date: 06/20/2014 17:10:07 Attending Provider: ZAYNAB SKELTON MD Primary Care [...] 1 Tablet(s), Oral, three times a day sulfamethoxazole-trimethoprim (Bactrim DS 800 mg-160 mg oral tablet) 1 Tablet(s), Oral, two times a day x 10 day(s) New Routed to [place] [address] [place], [place] [id number] Stop Taking the Following Medications: Medication list as of 06-20-14 17:10 Attention: If you have any medications at [...] Electronically Signed By: ZAYNAB SKELTON MD Signed On:20-JUN-2014 17:10:04 Additional Information: Source: [facility] POWERCHART Document Id: [id number] ERMAKER Miscellaneous - Conversion, Historical Provider Ser - 06/20/2014 10:26 AM BOILERMAKER Adult It Network Architect Intake/History Adult It Network Architect Intake/History Entered On: 06/20/2014 10:29 BOILERMAKER Performed On: 06/20/2014 10:26 BOILERMAKER by LOIS CASAS LPN Intake Chief Complaint : earache Temperature Core : 36.3 DegC(Converted to: 97.3 DegF) (LOW) Peripheral Pulse Rate : 76 /min Respiratory Rate : 16 /min Systolic Blood Pressure : 98 mmHg Diastolic Blood Pressure : 58 mmHg NIBP Mean : 71 mmHg BP Location : Left upper extremity Blood Pressure Cuff Size : Regular Height : 173 cm(Converted to: 5 ft 8 inch(es), 68 inch(es)) Actual Weight : 68 kg(Converted to: 149 lb 15 oz) Dosing Weight Clinic : 68 kg Clinic BSA : 1.81 Body Mass Index : 22.72 kg/m2 LOIS CASAS LPN - 06/20/2014 10:26 BOILERMAKER General Info Information Given By : Patient Languages : Nicaraguan Is Patient Female and 13-50 no hysterectomy : Yes Status : Patient denies Are you ? : No LOIS CASAS [facility] - 06/20/2014 10:26 BOILERMAKER Subjective Pain Symptoms : Yes LOIS CASAS [facility] - 06/20/2014 10:26 BOILERMAKER Pain Scale Pain Scale Verbal 0-10 : Open LOIS CASAS [facility] - 06/20/2014 10:26 BOILERMAKER Pain Pain Assessment Grid Pain 1 Location : Ear LOIS CASAS [facility] - 06/20/2014 10:26 BOILERMAKER Dependent Habits Tobacco Use/Currently Using : No Exposure to Tobacco Smoke : Other: Never Smoking Status : Never smoker LOIS CASAS [facility] - 06/20/2014 10:26 BOILERMAKER Tobacco Use Grid Last Use : never LOIS CASAS [facility] - 06/20/2014 10:26 BOILERMAKER Caffeine Use Grid Caffeine Use : Current Type : Chocolate, Soft drinks Frequency : Occasionally LOIS CASAS [facility] - 06/20/2014 10:26 BOILERMAKER Recreational Drug Use Grid Drug Use : None LOIS CASAS [facility] - 06/20/2014 10:26 BOILERMAKER ID Screen Travel Within Last 21 Days : No LOIS CASAS [facility] - 06/20/2014 10:26 BOILERMAKER [facility] Document Id: [id number] BOILERMAKER!47 documented in this encounter Plan of Treatment Not on filedocumented as of this encounter Visit Diagnoses Not on filedocumented in this encounter
--- OUTSIDE RECORDS SUMMARY | 2022-01-24 14:10 | XMS_ITS | Encounter Summary ---
:1995 Author Organization [facility] Address [address] [place] [address] Care Team Providers Name Role Phone Unavailable Primary Care Provider Unavailable Encounter Details Date Type Department Care Team Description 12/23/2011 Hospital Encounter HX [facility] Zaynab Peterson M.D. [address] [place], [place] [phone] (Wo rk) Social History Tobacco Use Types Packs/Day Years Used Date Smoking Tobacco: Never Assessed Sex Assigned at Date Recorded Female 07/27/2019 2:28 PM CDT documented as of this encounter Plan of Treatment Not on filedocumented as of this encounter Procedures Procedure Name Priority Date/Time Associated Comments Diagnosis GIARDIA AG STL Routine 12/24/2011 12:00 Results f or this PM CDT procedure are i n the results section. CRYPTOSPORIDIUM AG, F Routine 12/24/2011 12:00 Re sults for this PM CDT procedure are i n the results section. OVA AND PARASITE, Routine 12/24/2011 12:00 Result s for this CONCENTRATE AND PM CDT procedure ar e in PERMANENT SMEAR, the results MICROSCOPY, FECES section. documented in this encounter Results HX-Giardia Ag Stl (12/24/2011 12:00 PM CDT) athologist Signature Giardia Ag, F Negative POWERCHART Specimen (Source) Anatomical Collection Method Collection Time Re ceived Time Location / / Volume Laterality 12/24/2011 12:00 PM CDT Narrative POWERCHART - 12/25/2011 8:49 PM CDT Test Performed by: [facility] [address] [place] [address] Senior Ecologist: Ayad sow III, M.D. Alicja Olivares M.D. LAB HISTORICAL ORDERS Performing Organization Address [facility] Phon e Number POWERCHART Parasitic Examination (12/24/2011 12:00 PM CDT) [facility] Method Time Signature Ova and See Comment POWERCHART Parasite, Microscopy, F Comment: SOURCE: STOOL PARASITIC EXAMINATION ?FINAL No parasites seen. Cryptosporidium, Cyclospora, and microsp oridia are not readily detected by this method. Test Performed by: [facility] [place] [address] Senior Ecologist: Ayad sow III, M.D. Specimen (Source) Anatomical Collection Method Collection Time Re ceived Time Location / / Volume Laterality Stool 12/24/2011 12:00 PM CDT Alicja Olivares M.D. LAB MICROBIOLOGY - GENERAL O RDERABLES Performing Organization Address [facility] Phon e Number POWERCHART Cryptosporidium Ag, F (12/24/2011 12:00 PM CDT) [facility] Method Time Signature Cryptosporidium Ag, Negative Negative POWERCHART F Comment: Test Performed by: [place] [address] Senior Ecologist: Ayad osw III, M.D. Specimen (Source) Anatomical Collection Method Collection Time Re ceived Time Location / / Volume Laterality Stool 12/24/2011 12:00 PM CDT Alicja Olivares M.D. LAB MICROBIOLOGY - GENERAL O RDERABLES Performing Organization Address [facility] Code Phon e Number POWERCHART documented in this encounter Visit Diagnoses Not on filedocumented in this encounter
--- OUTSIDE RECORDS SUMMARY | 2022-01-24 14:10 | XMS_ITS | Encounter Summary ---
:1995 Author Organization [facility] Address [address] [place] [address] Care Team Providers Name Role Phone Unavailable Primary Care Provider Unavailable Encounter Details Date Type Department Care Team Description 12/13/2012 Hospital Encounter HX [facility] Zaynab Barr i, M.D. [address] [place] [phone] (Wo rk) Social History Tobacco Use Types Packs/Day Years Used Date Smoking Tobacco: Never Assessed Sex Assigned at Date Recorded Female 07/27/2019 2:28 PM CDT documented as of this encounter Last Filed Vital Signs Vital Sign Reading Time Taken Comments Blood Pressure 116/60 12/13/2012 10:08 AM CDT Pulse 76 12/13/2012 10:08 AM CDT Temperature - - Respiratory Rate 16 12/13/2012 10:08 AM CDT Oxygen Saturation - - Inhaled Oxygen Concentration - - Weight 61 kg (134 lb 7.7 oz) 12/13/2012 10:08 AM CDT Height 172 cm (5' 7.72) 12/13/2012 10:08 AM CDT Body Mass Index 20.62 12/13/2012 10:08 AM CDT Body Mass Index Percentile 38.55 % 12/13/2012 10:08 AM C DT Growth Chart: CDC (Girls, 2-20 Years) documented in this encounter Progress Notes Zaynab Skelton M.D. - 12/13/2012 10:04 AM CDT [id number] CHIEF COMPLAINT/ REASON FOR VISIT Sore throat. HISTORY OF PRESENT ILLNESS Chandrika is an 17 year old female who presents to the clinic with a sore throat. She reports pain in her ears and throat. She has been sleeping more often and reports waking up during the night with pain. Her symptoms began while at a concert last week, where she stayed in a tent for a few days. She believes she may have had a fever last night. She reports a tender lump in her neck. The patient denies any additional questions or concerns at this time. CURRENT MEDICATIONS Post-visit Medication Reconciliation Reviewed and are as outlined in the EMR ALLERGIES Amoxicillin SYSTEMS REVIEW See HPI. PAST MEDICAL/SURGICAL HISTORY MEDICAL HISTORY 1. Malabsorption. SURGICAL HISTORY 1. Tonsillectomy and adenoidectomy VITAL SIGNS HEIGHT: 172 cm WEIGHT: 61 kg BMI: 20.62 kg/m2 TEMPERATURE: 36.8 DegC PULSE: 76 /min RESPIRATORY RATE: 16 /min BLOOD PRESSURE: 116 mmHg/60 mmHg PHYSICAL EXAM GENERAL: Patient is alert and oriented times three, in no acute distress, good hygiene and is dressed appropriately. ENT: Tympanic membranes are normal bilaterally. Oropharynx shows tonsils to be 2+ with mild erythema. Inferior nasal turbinates are without injection. LYMPH NODES: Bilateral anterior cervical adenopathy and mild posterior adenopathy. HEART: Regular rate and rhythm without murmur. LUNGS: Clear to auscultation. EXTREMITIES: Within normal limits. IMPRESSION/REPORT/PLAN 1. Mononucleosis: Storey test is positive. The patient is given information sheets and symptomatic treatment is discussed. She is advised to rest and avoid contact sports for 6 weeks. 2. Follow up: The patient will contact the clinic with any new or worsening symptoms. This document serves as a record of services personally performed by Zaynab Morrow MD. It was created on their behalf by Maria Luisa Rosales, a trained medical office asst. The creation of this record is based on the scribe's personal observations and the provider's statements to them. This document has been chalo cked and approved by the attending provider. Zaynab Morrow M.D./burt Electronically Signed By: ZAYNAB MORROW MD On: 12/15/2012 10:35 PM Modified by and Electronically Signed by: ZAYNAB MORROW MD On: 12/15/2012 10:35 PM Source: [facility] MHSDOLBEYNONRADSYS Document Id: [id number] documented in this encounter Miscellaneous Notes Miscellaneous - Zaynab Skelton M.D. - 12/13/2012 9:47 PM CDT Ambulatory Patient Summary [address] [id number] Visit Information Name: CHANDRIKA ESQUEDA [facility] Number: [id number] Current Date: 12/13/2012 21:47:18 Physicians Attending Provider: ZAYNAB MORROW MD Primary [...] Malabsorption Active 02/15/2011 06/02/11 fructose / per [facility] Allergic reaction to drug, not elsewhere classified Active 06/03/2011 06/03/11 amoxicillin Your Upcoming Appointments Date Time Location Reason Provider No Appointments found Your Goals/Additional instructions: Source: [facility] POWERCHART Document Id: [id number] Miscellaneous - Zaynab Skelton M.D. - 12/13/2012 9:47 PM CDT Ambulatory Depart Summary [address] [address] Visit Information Name: CHANDRIKA ESQUEDA [facility] Number: [id number] Visit Date: 12/13/2012 21:47:17 Attending Provider: ZAYNAB MORROW MD Primary Care Provider: ZAYNAB MORROW MD CHANDRIKA ESQUEDA has been given [...] your provider for clarification. 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62 kg/m2 LOIS CASAS [facility] - 12/13/2012 10:08 CDT General Info Information Given By : Patient Languages : Lao LOIS CASAS [facility] - 12/13/2012 10:08 CDT Subjective Pain Symptoms : Yes LOIS CASAS [facility] - 12/13/2012 10:08 CDT Pain Pain Assessment Grid Pain 1 Location : Generalized LOIS CASAS [facility] - 12/13/2012 10:08 CDT Dependent Habits Tobacco Use/Currently Using : No Exposure to Tobacco Smoke : Other: Never Smoking Status : Never smoker LOIS CASAS [facility] - 12/13/2012 10:08 CDT Tobacco Use Grid Last Use : never LOIS CASAS [facility] - 12/13/2012 10:08 CDT Caffeine Use Grid Caffeine Use : Current Type : Chocolate, Soft drinks Frequency : Occasionally LOIS CASAS [facility] - 12/13/2012 10:08 CDT Source: [employer] Document Id: [id number] CDT!37 documented in this encounter Plan of Treatment Not on filedocumented as of this encounter Procedures Procedure Name Priority Date/Time Associated Comments Diagnosis HXPERIPH SMEAR EXAM Routine 12/13/2012 10:36 Resu lts for this AM CDT procedure are i n the results section. POCT MONONUCLEOSIS Routine 12/13/2012 10:36 Resul ts for this SCREEN AM CDT procedure are i n the results section. AUTOMATED Routine 12/13/2012 10:36 Results for this DIFFERENTIAL, B AM CDT procedure ar e in the results section. CBC WITH DIFFERENTIAL, Routine 12/13/2012 10:36 R esults for this B AM CDT procedure are i n the results section. RAPID STREP A SCREEN Routine 12/13/2012 10:18 Res ults for this AM CDT procedure are i n the results section. RAPID STREP A SCREEN Routine 12/13/2012 10:18 Res ults for this AM CDT procedure are i n the results section. documented in this encounter Results HXPERIPH SMEAR EXAM (12/13/2012 10:36 AM CDT) [facility] Time Signature HXWBC Est. agree agree POWERCHART PLT Estimate adequate POWERCHART HXPeriph Morph appears POWERCHART normal Specimen (Source) Anatomical Collection Method Collection Time Re ceived Time Location / / Volume Laterality Blood 12/13/2012 10:36 AM CDT Zaynab Roberts M.D. LAB HISTORICAL ORDERS Performing Organization Address City/[facility] Phon e Number POWERCHART (ABNORMAL) Automated Differential (12/13/2012 10:36 AM CDT) Patholo gist Method Time Signature Neutro % 59.3 34.0 - POWERCHART 71.1 Lymphocytes % 27.1 19.3 - POWERCHART 51.7 HX Storey % 12.1 4.7 - 12.5 POWERCHART HX Eos % 1.0 0.7 - 5.8 POWERCHART HX Baso % 0.5 0.1 - 1.2 POWERCHART Absolute 2.30 1.70 - POWERCHART Neutrophils 7.00 109L Lymphocytes 1.05 0.90 - POWERCHART 2.90 X109L Monocytes 0.47 0.30 - POWERCHART 0.90 X109L Eosinophils 0.04 (L) 0.05 - POWERCHART 0.50 X109L Absolute 0.02 0.00 - POWERCHART Basophil 0.30 X109L Specimen Anatomical Collection Method Collection Time Receive d Time (Source) Location / / Volume Laterality Blood 12/13/2012 10:36 12/13/2012 AM CDT 10:36 AM CDT Zaynab Roberts M.D. LAB BLOOD ADD-ON Performing Organization Address City/[facility] Phon e Number POWERCHART (ABNORMAL) CBC with Differential (12/13/2012 10:36 AM CDT) Analysis Performed At Patho logist Time Signature Leukocytes 3.9 3.4 - 10.5 POWERCHART X109L Erythrocytes 4.28 3.90 - POWERCHART 5.03 [id number] Hemoglobin 12.8 12.0 - POWERCHART 15.5 GDL Hematocrit 37.2 34.9 - POWERCHART 44.5 MCV 86.9 82.0 - POWERCHART 98.0 FL Platelet Count 114 (L) 150 - 450 POWERCHART X109L HX RDW 12.7 11.9 - POWERCHART 15.5 HXDifferential? Auto POWERCHART Specimen (Source) Anatomical Collection Method Collection Time Re ceived Time Location / / Volume Laterality Blood 12/13/2012 10:36 AM CDT Zaynab Roberts M.D. LAB BLOOD ADD-ON Performing Organization Address City/[facility] Code Phon e Number POWERCHART (ABNORMAL) Mononucleosis Screen, POCT (12/13/2012 10:36 AM CDT) [facility] Method Time Signature Infectious (POSITIVE) POWERCHART Storey Test, S HXFinal Positive POWERCHART HXFinal Reference: POWERCHART Negative Specimen (Source) Anatomical Collection Method Collection Time Re ceived Time Location / / Volume Laterality Blood 12/13/2012 10:36 AM CDT Zaynab Roberts M.D. LAB POCT ORDERABLES-MA NUAL Performing Organization Address City/[facility] Phon e Number POWERCHART Rapid Strep A Screen (12/13/2012 10:18 AM CDT) [facility] Method Time Signature HXRapid Strep POWERCHART Confirmation HXFinal Negative POWERCHART Specimen Anatomical Collection Method Collection Time Receive d Time (Source) Location / / Volume Laterality Throat 12/13/2012 10:18 12/13/2012 AM CDT 10:18 AM CDT Zaynab Roberts M.D. LAB MICROBIOLOGY - GEN ERAL ORDERABLES Performing Organization Address City/[facility] Phon e Number POWERCHART Rapid Strep A Screen (12/13/2012 10:18 AM CDT) [facility] Method Time Signature HXStrep A POWERCHART Screen Rapid HXFinal Negative for POWERCHART Strep Group A by rapid screen. HXFinal Culture POWERCHART confirmation to follow. Specimen (Source) Anatomical Collection Method Collection Time Re ceived Time Location / / Volume Laterality Throat 12/13/2012 10:18 AM CDT Zaynab Roberts M.D. LAB MICROBIOLOGY - GEN ERAL ORDERABLES Performing Organization Address City/[facility] Phon e Number POWERCHART documented in this encounter Visit Diagnoses Not on filedocumented in this encounter
--- OUTSIDE RECORDS SUMMARY | 2022-01-24 14:10 | XMS_ITS | Encounter Summary ---
:1995 Author Organization [facility] [place] [address] Care Team Providers Name Role Phone Unavailable Primary Care Provider Unavailable Encounter Details Date Type Department Care Team Description 09/19/2013 Hospital Encounter HX [facility] FB INTERNMED Jaycob Sood M.D. [address] [place] [phone] (Wo rk) Social History Tobacco Use Types Packs/Day Years Used Date Smoking Tobacco: Never Assessed Sex Assigned at Date Recorded Female 07/27/2019 2:28 PM CDT documented as of this encounter Last Filed Vital Signs Vital Sign Reading Time Taken Comments Blood Pressure 122/62 09/19/2013 3:24 PM CDT Pulse 80 09/19/2013 3:24 PM CDT Temperature - - Respiratory Rate - - Oxygen Saturation - - Inhaled Oxygen Concentration - - Weight 63 kg (138 lb 14.2 oz) 09/19/2013 3:24 PM CDT Height - - Body Mass Index 22.06 12/23/2012 11:16 AM CDT documented in this encounter Progress Notes Frankie Sood M.D. - 09/19/2013 3:19 PM CDT [id number] Patient presents today with a couple-day notation of increased runny nose, a little bit of itchy eyes but better today, congestion in her throat, a sore throat was swelling and adenopathy in the left neck. 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 She has not had fever, chills or sweats. She does sound congested. She is worried about going to work tomorrow sick. MEDICATIONS Per [facility] EMR. ALLERGIES Per [facility] EMR. SYSTEMS REVIEW Review of systems in all areas except as mentioned above is negative. PREVENTIVE SERVICES: Per [facility] EMR. Handwashing done prior to patient contact. PAST MEDICAL/SURGICAL HISTORY Per [facility] EMR. VITAL SIGNS Per [facility] EMR. PHYSICAL EXAMINATION She has a little bit of otitis bilaterally with redness of the ear canals. Sinuses are nontender. The throat does not have erythema or exudate, but there is some adenopathy in the left neck. IMPRESSION/REPORT/PLAN The patient is feeling sick with these issues and starts a new job tomorrow. She has been exposed tochildren who have otitis media. I will do a throat culture today for quick strep; will call with results. Will put her on empiric Zithromax 500 mg daily for 3 days. She will not be infective after the first dose of Zithromax. She should take that today, 1 hour before meals or 2 hours after. We will becalling her with the results of her throat culture. Frankie Sood M.D./colin Electronically Signed By: FRANKIE SOOD MD On: 09/20/2013 08:05 AM Source: [facility] MHSDOLBEYNONRADSYS Document Id: [id number] documented in this encounter Miscellaneous Notes Miscellaneous - Frankie Sood M.D. - 09/20/2013 10:48 AM CDT Results Notification From: FRANKIE SOOD MD Sent: 09/20/2013 10:48:06 CDT ! Show up: 09/20/2013 10:48:06 CDT Subject: Results Notification Actions: Notify patient of results Reminder Comments: negative Results: Date Result Type Ind Result Name MBO Review Rapid Strep Confirmation Source: [facility] POWERCHART Document Id: [id number] Electronically signed by Taryn [facility] [employer] [id number] at 09/29/2016 8:12 PM CDT Frankie Pichardo M.D. - 09/19/2013 3:51 PM CDT Results Notification Document Contains Addenda Addendum by SHAHIDA ARREOLA LPN on 19 Sep 2013 16:13:05 CDT called with results From: FRANKIE SOOD MD Sent: 09/19/2013 15:51:11 CDT ! Show up: 09/19/2013 15:51:11 CDT Subject: Results Notification Actions: Notify patient of results Reminder Comments: negative Results: Date Result Type Ind Result Name MBO Review Rapid Strep A Source: [facility] [employer] Document Id: [id number] Electronically signed by Conversion, [facility] [employer] [id number] at 09/29/2016 8:12 PM CDT Frankie Pichardo M.D. - 09/19/2013 3:35 PM CDT Ambulatory Patient Summary [address] [id number] Visit Information Name: CHANDRIKA ESQUEDA JUNIOR [facility] Number: [id number] Current Date: 09/19/2013 15:35:24 Physicians Attending Provider: FRANKIE SOOD MD Primary Care Provider: MARGARITA MORROW [...] Indications/Special Instructions/Comments/Notes for Patient Medication Changes/Routing azithromycin (Zithromax TRI-MAYA 500 mg oral tablet) 1 Tablet(s), Oral, once a day x 3 day(s) New Routed to [address] [place] [id number] norgestimate-ethinyl estradiol (Tri-Sprintec oral tablet) 1 Tablet(s), Oral, once a day ondansetron (ondansetron 4 mg oral tablet) 1 Tablet(s), Oral, three times a day Stop Taking the Following Medications: Medication list as of 09-19-13 15:35 Attention: If you have any medications at [...] Electronically Signed By: FRANKIE SOOD MD Signed On:19-SEP-2013 15:26:17 Your Allergies & Intolerances Substance Reaction Symptoms Category Comments amoxicillin rash Drug Your Problem List Problem Status Onset Comments Malabsorption Active 02/15/2011 06/02/11 fructose / per [facility] Allergic reaction to drug, not elsewhere classified Active 06/03/2011 06/03/11 amoxicillin Your Upcoming Appointments Date Time Location Reason Provider No Appointments found Attention: Contact your local Clinic if further appointment detail needed. Your Goals/Additional instructions: Source: [facility] POWERCHART Document Id: [id number] Miscellaneous - Frankie Sood M.D. - 09/19/2013 3:35 PM CDT Ambulatory Discharge Medication List [address] System [address] [place], [place] [address] [place] [phone] Visit Information Name: CHANDRIKA ESQUEDA JUNIOR [facility] Number: [id number] Visit Date: 09/19/2013 15:35:22 Attending Provider: FRANKIE SOOD MD Primary Care Provider: MARGARITA MORROW [...] Indications/Special Instructions/Comments/Notes for Patient Medication Changes/Routing azithromycin (Zithromax TRI-MAYA 500 mg oral tablet) 1 Tablet(s), Oral, once a day x 3 day(s) New Routed to [place] [address] [address] [place], [place] [id number] norgestimate-ethinyl estradiol (Tri-Sprintec oral tablet) 1 Tablet(s), Oral, once a day ondansetron (ondansetron 4 mg oral tablet) 1 Tablet(s), Oral, three times a day Stop Taking the Following Medications: Medication list as of 09-19-13 15:35 Attention: If you have any medications at [...] Electronically Signed By: FRANKIE SOOD MD Signed On:19-SEP-2013 15:26:17 Additional Information: Source: [facility] POWERCHART Document Id: [id number] Miscellaneous - Shahida Arreola L.P.NJoshua - 09/19/2013 3:24 PM CDT 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 Intake/History Entered On: 09/19/2013 15:26 CDT Performed On: 09/19/2013 15:24 CDT by SHAHIDA ARREOLA LPN Intake Chief Complaint : earache sorethroat Temperature Core : 36.7 DegC(Converted to: 98.1 DegF) Peripheral Pulse Rate : 80 /min Heart Rhythm : Regular Systolic Blood Pressure : 122 mmHg Diastolic Blood Pressure : 62 mmHg NIBP Mean : 82 mmHg BP Location : Left upper extremity Blood Pressure Cuff Size : Regular Actual Weight : 63 kg(Converted to: 138 lb 14 oz) Weight Source : Standing scale Dosing Weight Clinic : 63 kg SHAHIDA ARREOLA LPN - 09/19/2013 15:24 CDT General Info Information Given By : Patient Languages : Canadian SHAHIDA ARREOLA SENIOR AUDITOR - 09/19/2013 15:24 CDT Subjective Pain Symptoms : No SHAHIDA ARREOLA SENIOR AUDITOR - 09/19/2013 15:24 CDT Dependent Habits Tobacco Use/Currently Using : No Exposure to Tobacco Smoke : Other: Never Smoking Status : Never smoker SHAHIDA ARREOLA [facility] - 09/19/2013 15:24 CDT Tobacco Use Grid Last Use : never SHAHIDA ARREOLA SENIOR AUDITOR - 09/19/2013 15:24 CDT Caffeine Use Grid Caffeine Use : Current Type : Chocolate, Soft drinks Frequency : Occasionally SHAHIDA ARREOLA SENIOR AUDITOR - 09/19/2013 15:24 CDT Recreational Drug Use Grid Drug Use : None SHAHIDA ARREOLA [facility] - 09/19/2013 15:24 CDT Source: [facility] [employer]CHART Document Id: [id number] CDT!34 documented in this encounter Plan of Treatment Not on filedocumented as of this encounter Procedures Procedure Name Priority Date/Time Associated Diagnosis Comme nts RAPID STREP A Routine 09/19/2013 3:40 PM Results for this SCREEN CDT procedure are i n the results section. RAPID STREP A Routine 09/19/2013 3:40 PM Results for this SCREEN CDT procedure are i n the results section. documented in this encounter Results Rapid Strep A Screen (09/19/2013 3:40 PM CDT) [facility] gist Method Time Signature HXRapid Strep POWERCHART Confirmation HXFinal Negative POWERCHART Specimen Anatomical Collection Method Collection Time Receive d Time (Source) Location / / Volume Laterality Throat 09/19/2013 3:40 PM 4 3:40 CDT PM CDT Frankie Sood M.D. LAB MICROBIOLOGY - GENERAL O RDERABLES Performing Organization Address City/State/ZIP Code Phon e Number POWERCHART Rapid Strep A Screen (09/19/2013 3:40 PM CDT) [facility] gist Method Time Signature HXStrep A POWERCHART Screen Rapid HXFinal Negative for POWERCHART Strep Group A by rapid screen. HXFinal Culture POWERCHART confirmation to follow. Specimen (Source) Anatomical Collection Method Collection Time Re ceived Time Location / / Volume Laterality Throat 09/19/2013 3:40 PM CDT Frankie Sood M.D. LAB MICROBIOLOGY - GENERAL O RDERABLES Performing Organization Address City/State/ZIP Code Phon e Number POWERCHART documented in this encounter Visit Diagnoses Not on filedocumented in this encounter
--- OUTSIDE RECORDS SUMMARY | 2022-01-24 14:10 | XMS_ITS | Encounter Summary ---
:1995 Author Organization [facility] [place] [address] Care Team Providers Name Role Phone Jake Villegas M.D. Primary Care Provider Encounter Details Date Type Department Care Team Description 08/24/2014 Historical Ophthalmology [facility] Stephen Jimenez Jr., M.D. [address] [place], [place] [phone] (Wo rk) Social History Tobacco Use Types Packs/Day Years Used Date Smoking Tobacco: Never Assessed Sex Assigned at Date Recorded Female 07/27/2019 2:28 PM CDT documented as of this encounter Progress Notes Stephen Jimenez M.D. - 08/24/2014 8:44 AM CDT Eye General CHIEF COMPLAINT Pt here for complete eye exam HISTORY OF PRESENT ILLNESS Some trouble wtih night driving IMPRESSION / REPORT / PLAN A) Myopia, unchanged P) glasses at night only if desired. 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 PCP - General 06/14/[address] [place], [place] [address]ANASTASIA Proctor [phone] documented as of this encounter
--- OUTSIDE RECORDS SUMMARY | 2022-01-24 14:10 | XMS_ITS | Encounter Summary ---
:1995 Author Organization [facility] [place] [address] Care Team Providers Name Role Phone Unavailable Primary Care Provider Unavailable Encounter Details Date Type Department Care Team Description 04/22/2012 Hospital Encounter HX [facility] Stephen Sarabia Jr., M.D. [address] [place], [place] [phone] (Wo rk) Social History Tobacco Use Types Packs/Day Years Used Date Smoking Tobacco: Never Assessed Sex Assigned at Date Recorded Female 07/27/2019 2:28 PM CDT documented as of this encounter Progress Notes Delicia Treviño, C.O.T. - 04/22/2012 8:12 AM CST Eye Services Clinic Exam Eye Services Clinic Exam Entered On: 04/22/2012 8:19 [employer] Performed On: 04/22/2012 8:12 [employer] by DELICIA TREVIÑO Chief Complaint and History Pain Symptoms : No Smoking Status : Never smoker Comment : Pt here for complete eye exam Some trouble with night vision Family History Reviewed : 04/22/2012 [employer] DELICIA TREVIÑO - 04/22/2012 8:12 [employer] Optometry Exam Familty History Grid Cancer : Sibling Diabetes : Grandparents DELICIA TREVIÑO - 04/22/2012 8:12 [employer] Vision Testing Right Eye Vision Testing : Without correction, 20/20, -1 Left Eye Vision Testing : Without correction, 20/20, -1 Both Eyes Vision Testing : Without correction, 20/20 DELICIA TREVIÑO - 04/22/2012 8:12 [employer] Refraction Right Eye Manifest Grid Date : 04/22/2012 [employer] Performed by : Tech Sphere : 0 Visual Acuity Distance : 20/20 DELICIA TREVIÑO Cleve - 04/22/2012 8:12 [employer] Left Eye Manifest Grid Date : 04/22/2012 [employer] Performed by : Tech Sphere : 0 Visual Acuity Distance : 20/20 DELICIA TREVIÑO Cleve - 04/22/2012 8:12 [employer] Ocular Testing EOMS : Normal Pupils : PERRLA Cover Test : Normal Comment : méndez full DELICIA TREVIÑO - 04/22/2012 8:12 [employer] Intraoccular Pressures Intraoccular Pressures Grid Date : 04/22/2012 [employer]ER 04/22/2012 [employer]ER Eye : RE LE Applanation : 15 15 Eye Drops : Fluress Fluress MIGUEDELICIA BLANCAS - 04/22/2012 8:12 [employer] MIGUEDELICIA BLANCAS - 04/22/2012 8:12 [employer] Eye Drops Exam Phenylephrine 2.5% Eye Drops Eye : Both eyes Phenylephrine 2.5% Eye Drops Amount : One drop Phenylephrine 2.5% Eye Drops Time : 8:19 [employer] Tropicamide 1% Eye Drops Eye : Both eyes Tropicamide 1% Eye Drops Amount : One drop Tropicamide 1% Eye Drops Time : 8:19 [employer] MONICADELICIA - 04/22/2012 8:12 [employer] Ocular Health Ocular Health Ext Rt Eye Grid Ext Rt Eye - Lids/Lashes : Normal Ext Rt Eye - Conjunctiva : Normal Ext Rt Eye - Cornea : Normal Ext Rt Eye - A/C : Normal Ext Rt Eye - Iris : Normal Ext Rt Eye - Lens : Normal STEPHEN FIGUEROA MD - 04/22/2012 8:56 [employer] Ocular Health Ext Lt Eye Grid Ext Lt Eye - Lids/Lashes : Normal Ext Lt Eye - Conjunctiva : Normal Ext Lt Eye - Cornea : Normal Ext Lt Eye - A/C : Normal Ext Lt Eye - Iris : Normal Ext Lt Eye - Lens : Normal STEPHEN FIGUEROA MD - 04/22/2012 8:56 [employer] Ocular Health Int Rt Eye Grid Int [...] Vessels : Normal STEPHEN FIGUEROA MD - 04/22/2012 8:56 [employer] Ocular Health Int Lt Eye Grid Int [...] Vessels : Normal STEPHEN FIGUEROA MD - 04/22/2012 8:56 [employer]ER Assessment Findings : Myopia, Other: Very mild (-0.12) myopia, no need for glasses but explains sx. Plan : Return for complete exam in one year or PRN STEPHEN FIGUEROA MD - 04/22/2012 8:56 [employer] M[employer]ER Source: [facility] [employer] Document Id: [id number] T AND OATS FLAKE MILLER documented in this encounter Miscellaneous Notes Miscellaneous - Stephen Figueroa M.D. - 04/22/2012 9:01 AM CST Ambulatory Patient Summary [address] [address] Visit Information Name: CHANDRIKA ESQUEDA [facility] Number: [id number] Current Date: 04/22/2012 09:01:53 Physicians Attending Provider: STEPHEN FIGUEROA MD Primary [...] No Appointments found Your Goals/Additional instructions: Source: [facility] [employer] Document Id: [id number] T [employer] O[employer]KE M[employer]ER Miscellaneous - Stephen Figueroa M.D. - 04/22/2012 9:01 AM CST Ambulatory Depart Summary [address] [address] Visit Information Name: LILLYRITESH NevarezISABEL PACHECO [facility] Number: [id number] Visit Date: 04/22/2012 09:01:53 Attending Provider: STEPHEN FIGUEROA MD Primary Care [...] your provider for clarification. Additional Information: [facility] Document Id: [id number] T [employer] documented in this encounter Plan of Treatment Not on filedocumented as of this encounter Visit Diagnoses Not on filedocumented in this encounter
--- OUTSIDE RECORDS SUMMARY | 2022-01-24 14:11 | XMS_ITS | Encounter Summary ---
:1995 Author Organization [facility] [place] [address] Care Team Providers Name Role Phone Unavailable Primary Care Provider Unavailable Encounter Details Date Type Department Care Team Description 11/25/2002 Hospital Encounter [facility] Michi Camacho M.D. [address] [place] [phone] (Wo rk) Social History Tobacco Use Types Packs/Day Years Used Date Smoking Tobacco: Never Assessed Sex Assigned at Date Recorded Female 07/27/2019 2:28 PM CDT documented as of this encounter Plan of Treatment Not on filedocumented as of this encounter Visit Diagnoses Not on filedocumented in this encounter
--- OUTSIDE RECORDS SUMMARY | 2022-01-24 14:11 | XMS_ITS | Encounter Summary ---
:1995 Author Organization [facility] [place] [address] Care Team Providers Name Role Phone Unavailable Primary Care Provider Unavailable Encounter Details Date Type Department Care Team Description 12/24/2004 Hospital Encounter HX [facility] ProviderShane Social History Tobacco Use Types Packs/Day Years Used Date Smoking Tobacco: Never Assessed Sex Assigned at Date Recorded Female 07/27/2019 2:28 PM CDT documented as of this encounter Plan of Treatment Not on filedocumented as of this encounter Visit Diagnoses Not on filedocumented in this encounter
--- OUTSIDE RECORDS SUMMARY | 2022-01-24 14:11 | XMS_ITS | Encounter Summary ---
:1995 Author Organization [facility] [place] [address] Care Team Providers Name Role Phone Unavailable Primary Care Provider Unavailable Encounter Details Date Type Department Care Team Description 12/10/2009 Hospital En[facility] Margarita Barr i, M.D. [address] [place] [phone] (Wo rk) Social History Tobacco Use Types Packs/Day Years Used Date Smoking Tobacco: Never Assessed Sex Assigned at Date Recorded Female 07/27/2019 2:28 PM CDT documented as of this encounter Progress Notes Margarita Skelton M.D. - 12/10/2009 12:00 AM CDT [id number] IMPRESSION/REPORT/PLAN 1. Age appropriate anticipatory guidance is given. Immunizations are reviewed and updated including Varivax and Menactra. Sports physical form is filled out and she qualifies without restrictions. She will follow up in 1-2 years for next well child check and sooner as needed. CHIEF COMPLAINT/REASON FOR VISIT Well child check HISTORY OF PRESENT ILLNESS Chandrika comes in for 14 year well child check. For subjective and objective information please see the 14 year well child check form in the chart. JLF/clf Signed Margarita Morrow M.D. Family Medicine Electronically Signed By:MARGARITA MORROW MD On 12/25/2009 09:19 AM Source: [facility]SDOLBEYNYANNICK Document Id: [id number] documented in this encounter Miscellaneous Notes Miscellaneous - Conversion, Historical Provider Ser - 12/10/2009 3:04 PM CDT Pediatric Garment Form Assembler Intake/History Pediatric Garment Form Assembler Intake/History Entered On: 12/10/2009 15:08 CDT Performed On: 12/10/2009 15:04 CDT by LOIS CASAS LPN Intake Chief Complaint: sports physical Temperature Core: 37.1DegC(Converted to: 98.8DegF) Peripheral Pulse Rate: 76bpm Respiratory Rate: 20br/min Systolic Blood Pressure: 90mmHg (LOW) Diastolic Blood Pressure: 60mmHg NIBP Mean: 70mmHg BP Reading Side: Right upper extremity Height: 170.00cm(Converted to: 5ft 7in, 5.58ft, 66.93in) Actual Weight: 60.000kg(Converted to: 132lb 4oz, 132.277lb, 2,116.438oz) Clinic BSA: 1.68 Body Mass Index: 21kg/m2 Dosing Weight Clinic: 60.00kg LOIS CASAS LPN - 12/10/2009 15:04 CDT Subjective Pain Symptoms: No LOIS CASAS LPN - 12/10/2009 15:04 CDT Dependent Habits Tobacco Use/Currently Using: No LOIS CASAS LPN - 12/10/2009 15:04 CDT Allergy Allergies (Active) NKA Estimated Onset Date: Unspecified ; Created By: LORE ALEGRIA RN; Reaction Status: Active; Category: Drug ; Substance: NKA ; Type: Allergy ; Updated By: LORE ALEGRIA RN; Reviewed Date: 12/07/2009 9:03 CDT Source: [facility] [employer]CHART Document Id: [id number] CDT!19 documented in this encounter Plan of Treatment Not on filedocumented as of this encounter Visit Diagnoses Not on filedocumented in this encounter
--- OUTSIDE RECORDS SUMMARY | 2022-01-24 14:11 | XMS_ITS | Encounter Summary ---
:1995 Author Organization [facility] [place] [address] Care Team Providers Name Role Phone Unavailable Primary Care Provider Unavailable Encounter Details Date Type Department Care Team Description 04/10/2011 Hospital Encounter HX NO MAPPING Social History Tobacco Use Types Packs/Day Years Used Date Smoking Tobacco: Never Assessed Sex Assigned at Date Recorded Female 07/27/2019 2:28 PM CDT documented as of this encounter Plan of Treatment Not on filedocumented as of this encounter Visit Diagnoses Not on filedocumented in this encounter
--- OUTSIDE RECORDS SUMMARY | 2022-01-24 14:11 | XMS_ITS | Clinical Summary ---
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 Pap smear for cervical cancer screening 05/02/2021 Overview: 04/2021 NIL Plan: Pap/HPV due 04/2024 Encounters Date Type Specialty Care Team Description 12/19/2021 Transcribe Orders Hyacinth Looney, 11/25/2021 Telephone ESTER Roberts ( medical records) Zaynab Shelby MD from Last 3 Months Immunizations Name Administration Dates Next Due COVID-19 vaccine (Azubu 05/02/2021 30mcg/0.3mL) PF, MDV DTaP 02/01/1999, 07/02/1995 HPV 9 (Gardasil 9) 04/04/2016 Hepatitis A (Peds) 04/19/2007, 07/09/2006 Hepatitis B, Unspecified 1995, 1995, 1994 Hib Conjugate, Unspecified 07/02/1995 Human Papilloma Virus Vaccine 12/01/2012 Inactivated Polio Vaccine 02/01/1999 Influenza, IIV3 (Age >=3 years) 04/09/2012 Influenza, IIV4 05/02/2021, 04/04/2016 Influenza, IIV4 (=>6mos) MDV 04/07/2017, 02/15/2015 MMR 07/02/1995 Measles-Rubella 02/01/1999 Meningococcal Vaccine (Menactra) 12/01/2012, 12/10/2009 Tdap 04/04/2016, 07/09/2006 Varicella Vaccine 07/02/1995 Family History Medical History Relation Name Comments Depression Brother 1 Cancer-pancreatic Father Pulmonary embolism Maternal Grandmother after muro rgery and Melanoma Maternal Uncle Deep vein thrombosis Sister pt not sure of cause Leukemia Sister Relation Name Status Comments Brother 1 Alive Brother 2 Alive Father Maternal Grandmother Maternal Uncle Mother Alive Sister Alive Social History Tobacco Use Types Packs/Day Years Used Date Never Smoker Smokeless Tobacco: Never Used Tobacco Cessation: Counseling Given: Yes Alcohol Use Standard Drinks/Week Comments Yes 0 (1 standard drink = 0.6 oz pure alcoho l) casually Alcohol Habits Answer Date Recorded How often do you have a drink containing alcohol? Not asked How many drinks containing alcohol do you have on a typical Not asked day when you are drinking? How often do you have six or more drinks on one occasion? No t asked Comment: casually 05/02/2021 Sex Assigned at Date Recorded Not on file Obstetrics History Last Filed Vital Signs Vital Sign Reading Time Taken Comments Blood Pressure 104/69 05/02/2021 8:59 AM RN [facility] Pulse 79 05/02/2021 8:59 AM RN [facility] Temperature 36.9 ??C (98.4 ??F) 05/06/2015 12:03 AM RN [facility] Respiratory Rate 18 05/06/2015 12:03 AM RN [facility] Oxygen Saturation 100% 05/02/2021 8:59 AM RN [facility] Inhaled Oxygen Concentration - - Weight 89.1 kg (196 lb 6.4 oz) 05/02/2021 8:59 AM RN [facility] Height 171.3 cm (5' 7.44) 05/02/2021 8:59 AM RN [facility] Body Mass Index 30.36 05/02/2021 8:59 AM RN [facility] Plan of Treatment Health Maintenance Due Date Last Done Comments Hepatitis C screening for age 1103/10/2012 18-79 Influenza for age 9-49 01/02/2022 05/02/2021, 04/07/2017, 04/04/2016, Additional history exists BMI (ht and wt on same day) for 05/02/2022 05/02/2021 age 18+ Depression screening for age 12+ 05/02/2022 05/02/2021 Pap test for age 21-65 05/02/2024 05/02/2021 Tetanus booster 04/04/2026 04/04/2016, 07/09/2006 Tdap Completed 04/04/2016, 07/09/2006 COVID-19 vaccine series Completed 05/02/2021, 08/15/2020, 07/04/2020 Results Not on filefrom Last 3 Months Insurance Payer Benefit Plan / Subscriber ID Effective Dates Phone Addre ss Type Group PREFERRED ONE PREFERRED ONE [id number] 2021-Present [address] [place] [address] [birth year] 15 h F y (Home) [place] [id number] Erika MOSQUERA Personal/Famil Self 1995 17 [address] h F y (Home) [place] [id number] Oralia Esqueda Personal/Famil Mother 04/18/1962 [id number] [address] y (Home) [place] [id number] Care Teams Is Architect Relationship Specialty Start Date End Date Zaynab Roberts, PCP - General Family Practice 12/02 10/12
--- OUTSIDE RECORDS SUMMARY | 2022-01-24 14:11 | XMS_ITS | Encounter Summary ---
:1995 Author Organization [facility] [place] [address] Care Team Providers Name Role Phone Unavailable Primary Care Provider Unavailable Encounter Details Date Type Department Care Team Description 06/02/2011 Hospital Encounter HX [facility] Natalie Bedolla APRN, C.N.P. [address] [place] [phone] (Wo rk) Social History Tobacco Use Types Packs/Day Years Used Date Smoking Tobacco: Never Assessed Sex Assigned at Date Recorded Female 07/27/2019 2:28 PM CDT documented as of this encounter Last Filed Vital Signs Vital Sign Reading Time Taken Comments Blood Pressure 90/60 06/02/2011 3:26 PM AUTOMOTIVE WORKER Pulse 60 06/02/2011 3:26 PM AUTOMOTIVE WORKER Temperature - - Respiratory Rate 16 06/02/2011 3:26 PM AUTOMOTIVE WORKER Oxygen Saturation - - Inhaled Oxygen Concentration - - Weight 60.7 kg (133 lb 14.9 oz) 06/02/2011 3:26 PM AUTOMOTIVE WORKER Height - - Body Mass Index - - documented in this encounter Progress Notes Pricila Bedolla, INES, C.N.P. - 06/02/2011 12:00 AM CST [id number] CHIEF COMPLAINT/ REASON FOR VISIT Sinus congestion with sore throat, ear pain and headache. HISTORY OF PRESENT ILLNESS Chandrika states she has had sinus congestion for the past several days. She had 102 temperature couple of days ago. She has been having a lot of drainage. She has pressure right ear and her throat is sore, especially in the right side. She has had headache today. She has felt nauseated and thrown up some phlegm a few times. CURRENT MEDICATIONS See depart summary from today ALLERGIES None SYSTEMS REVIEW Positive for that mentioned in history present illness and noted in the EMR the past medical history all other systems were reviewed were negative PREVENTIVE: Due for chlamydia screen VITAL SIGNS See EMR PHYSICAL EXAM Well developed well nourished 16-year-old in no acute distress. SKIN: Warm and dry. ENT: TMs are dull. Nares congested with yellow mucus. Tenderness over maxillary sinus. Throat slightly erythematous mild anterior cervical lymphadenopathy. HEART: Regular rate and rhythm. LUNGS: Clear to auscultation. ABDOMEN: Soft, nontender, hepatosplenomegaly. IMPRESSION/REPORT/PLAN Acute sinusitis. Amoxicillin 500 milligrams two twice daily for 10 days encourage fluids, Tylenol for fever discomfort. Recheck if symptoms do not improve SJM/clf Signed Pricila Bedolla, MSN, JOINERS SUPERVISOR, CDE Family Nurse Practitioner Electronically Signed By: PRICILA BEDOLLA CNP On: 06/03/2011 09:32 AM Source: [facility]SDOLBE[facility] Document Id: [id number] MOTIVE WORKER documented in this encounter Miscellaneous Notes Miscellaneous - Pricila Bedolla APRN, C.N.P. - 06/02/2011 3:47 PM CST Ambulatory Patient Summary [address] [address] Visit Information Name: CHANDRIKA ESQUEDA Current Date: 06/02/2011 15:47:18 Primary Care Provider: MARGARITA MORROW MD Your Medications Here is a list of your medications. It is important to take your medications as directed. Use a pillbox or chart to help remind you to take your medications. Please let your doctor or nurse know if you have problems taking your medications. Medication/Strength Dose Route Frequency Indications/Special Instructions/Comments amoxicillin (amoxicillin 500 mg oral capsule) 1,000 mg Oral two times a day for 10 Days Your Allergies & Intolerances Substance Reaction Symptoms Category Comments NKA Drug Your Problem List Problem Status Onset Comments Malabsorption Active 02/15/2011 fructose / per [facility] Your Recommendations We want to make sure [...] Chlamydia every 1 year Females Age 16-24 06/02/2011 Your Upcoming Appointments Date Time Location Reason Provider No Appointments found Your Goals/Additional instructions: Source: [employer] Document Id: [id number] MOTIVE WORKER Miscellaneous - Pricila Bedolla APRN, C.N.P. - 06/02/2011 3:47 PM CST Ambulatory Depart Summary [address] [address] Visit Information Name: CHANDRIKA ESQUEDA JUNIOR Current Date: 06/02/2011 15:47:18 Attending Provider: PRICILA BEDOLLA [facility] Primary Care Provider: MARGARITA MORROW MD CHANDRIKA ESQUEDA has been given the following list of medications: Your Medications It is important to take your medications as directed. Use a pill box or chart to help remind you to take your medications. Please let your doctor or nurse know if you have problems taking your medications. Medication/Strength Dose Route Frequency Indications/Special Instructions/Comments amoxicillin (amoxicillin 500 mg oral capsule) 1,000 mg Oral two times a day for 10 Days Additional Information: Source: [employer] Document Id: [id number] MOTIVE WORKER Miscellaneous - Conversion, Historical Provider Ser - 06/02/2011 3:26 PM AUTOMOTIVE WORKER Pediatric Java Integration Developer Intake/History Pediatric Java Integration Developer Intake/History Entered On: 06/02/2011 15:28 AUTOMOTIVE WORKER Performed On: 06/02/2011 15:26 AUTOMOTIVE WORKER by GEO CHAVIS Intake Chief Complaint : ache all over Onset of Symptoms : 2 days Temperature Core : 37.2C(Converted to: 99.0DegF) Peripheral Pulse Rate : 60/min Respiratory Rate : 16/min Heart Rhythm : Regular Systolic Blood Pressure : 90mmHg (LOW) Diastolic Blood Pressure : 60mmHg NIBP Mean : 70mmHg BP Location : Left upper extremity Blood Pressure Cuff Size : Regular Actual Weight : 60.75kg(Converted to: 133lb 15oz) Weight Source : Standing scale Dosing Weight Clinic : 60.75kg GEO CHAVIS 06/02/2011 15:26 AUTOMOTIVE WORKER Subjective Pain Symptoms : Yes GEO CHAVIS 06/02/2011 15:26 AUTOMOTIVE WORKER Pain Pain Assessment Grid Pain 1 Location : Generalized GEO CHAVIS 06/02/2011 15:26 AUTOMOTIVE WORKER Dependent Habits Tobacco Use/Currently Using : No Exposure to Tobacco Smoke : Other: Never Smoking Status : Never smoker GEO CHAVIS 06/02/2011 15:26 AUTOMOTIVE WORKER Allergy Allergies (Active) NKA Estimated Onset Date: Unspecified ; Created By: LORE ALEGRIA RN; Reaction Status: Active; Category: Drug ; Substance: NKA ; Type: Allergy ; Updated By: LORE ALEGRIA RN; Reviewed Date: 06/02/2011 15:25 AUTOMOTIVE WORKER Source: [facility] Document Id: [id number] AUTOMOTIVE WORKER!26 documented in this encounter Plan of Treatment Not on filedocumented as of this encounter Visit Diagnoses Not on filedocumented in this encounter
--- OUTSIDE RECORDS SUMMARY | 2022-01-24 14:11 | XMS_ITS | Encounter Summary ---
:1995 Author Organization [facility] [place] [address] Care Team Providers Name Role Phone Unavailable Primary Care Provider Unavailable Encounter Details Date Type Department Care Team Description 12/27/2010 Hospital Encounter HX [facility] FB FAMILYPRA Margarita Barr i, M.D. [address] [place] [phone] (Wo rk) Social History Tobacco Use Types Packs/Day Years Used Date Smoking Tobacco: Never Assessed Sex Assigned at Date Recorded Female 07/27/2019 2:28 PM CDT documented as of this encounter Progress Notes Margarita Skelton M.D. - 12/27/2010 12:00 AM CDT [id number] CHIEF COMPLAINT/REASON FOR VISIT Recheck HISTORY OF PRESENT ILLNESS Chandrika comes into review of her nausea and loose stools. She underwent a colonoscopic evaluation on 11/29 and no abnormalities were noted in her colon. She has been experimenting with her diet. She did not find that of avoiding dairy was particularly helpful. She did not find that avoiding wheat products was very helpful either although it is unclear how fastidious she was about avoiding all gluten. She continues with symptoms of postprandial cramping and loose stools at. She has this on a daily basis as well as frequent if not daily nausea. CURRENT MEDICATIONS None. VITAL SIGNS Weight is 61.2 kg, temperature 36.7, respirations 20, pulse 80, blood pressure 98/40. PHYSICAL EXAMINATION She does not appear ill. Abdomen is soft with no tenderness or masses. Bowel sounds are normal. IMPRESSION/REPORT/PLAN Post prandial cramping with nausea. She has had negative colonoscopy. She has had negative stool studies and lab work. She has GI appointment pending. Will obtain ultrasound of the abdomen to evaluate for gallstones or other abnormality. JLF/clf Signed Margarita Morrow M.D. Family Medicine Electronically Signed By: MARGARITA MORROW MD On: 02/03/2011 01:19 PM Source: [facility] MHSDOLBEYNONRADSYS Document Id: [id number] documented in this encounter Miscellaneous Notes Miscellaneous - Margarita Skelton M.D. - 12/30/2010 8:34 PM CDT Results Notification Document Contains Addenda Addendum by CATA MALHOTRA on 02 January 2011 09:18:13 CDT Addendum by CATA MALHOTRA on 01 January 2011 11:03:09 CDT From: CATA MALHOTRA To: MARGARITA MORROW MD; Sent: 01/01/2011 11:03:09 CDT Subject: RE: Results Notification Mom notified of lab results. Patient is about the same. She did stop drinking milk but that didn't seem to make a difference so is back drinking it. She does have appt in [place] on Feb.03. Mom wonders if there is anything else she can do? SHARON From: MARGARITA MORROW MD To: LOIS CASAS LPN Sent: 12/30/2010 20:34:03 CDT ! Show up: 12/30/2010 20:33:00 CDT Subject: Results Notification Actions: Notify patient of results Due Date/Time: 12/30/2010 20:33:00 CDT Source: [employer] Document Id: [id number] Electronically signed by Taryn, [facility] Manager [place] [id number] at 10/05/2016 11:09 PM CDT Miscellaneous - Conversion, Historical Provider Ser - 12/27/2010 12:23 PM CDT Adult Truck Driver Instructor Intake/History Adult Truck Driver Instructor Intake/History Entered On: 12/27/2010 12:30 CDT Performed On: 12/27/2010 12:23 CDT by CONSUELO TYLER Intake Chief Complaint: recheck Temperature Core: 36.7C(Converted to: 98.1DegF) Peripheral Pulse Rate: 80/min Respiratory Rate: 20/min Systolic Blood Pressure: 90mmHg (LOW) Diastolic Blood Pressure: 40mmHg (<LLOW) NIBP Mean: 57mmHg BP Location: Left upper extremity Heart Rhythm: Regular Actual Weight: 61.200kg(Converted to: 134lb 15oz) Weight Source: Standing scale Dosing Weight Clinic: 61.20kg CONSUELO TYLER - 12/27/2010 12:23 CDT Subjective Pain Symptoms: No CONSUELO TYLER - 12/27/2010 12:23 CDT Dependent Habits Tobacco Use/Currently Using: No Alcohol Use: No CONSUELO TYLER - 12/27/2010 12:23 CDT Allergy Allergies (Active) NKA Estimated Onset Date: Unspecified ; Created By: LORE ALEGRIA RN; Reaction Status: Active; Category: Drug ; Substance: NKA ; Type: Allergy ; Updated By: LORE ALEGRIA RN; Reviewed Date: 11/18/2010 13:30 CDT Source: [employer] Document Id: [id number] CDT!19 documented in this encounter Plan of Treatment Not on filedocumented as of this encounter Visit Diagnoses Not on filedocumented in this encounter
--- OUTSIDE RECORDS SUMMARY | 2022-01-24 14:11 | XMS_ITS | Encounter Summary ---
:1995 Author Organization [facility] [place] [address] Care Team Providers Name Role Phone Unavailable Primary Care Provider Unavailable Encounter Details Date Type Department Care Team Description 11/18/2010 Hospital Encounter HX [facility] FB FAMILYPRA Margarita Barr i, M.D. [address] [place] [phone] (Wo rk) Social History Tobacco Use Types Packs/Day Years Used Date Smoking Tobacco: Never Assessed Sex Assigned at Date Recorded Female 07/27/2019 2:28 PM CDT documented as of this encounter Progress Notes Margarita Skelton M.D. - 11/18/2010 12:00 AM CDT [id number] CHIEF COMPLAINT/ REASON FOR VISIT Stomachache HISTORY OF PRESENT ILLNESS Chandrika is 15 years old. She has had stomachaches over the past year or so. She has had worsening over symptoms over the past couple of weeks. She states that after eating she developed nausea and abdominal cramps. She occasionally has significant urgency to bowel movement and needs to stop what she is doing in order to have a bowel movement. She does notice this especially after lunch when she has the urge to vomit occasionally. She wondered if she was lactose intolerant and cut out all dairy from her diet. Her symptoms seem to improve but she developed significant leg pain which she felt was due to lack of calcium. She reintroduced dairy to her diet and then developed diarrhea. She has not had bloody stools. She has not had fevers and has not otherwise been ill. She has had weight loss of 3.3 kg since April CURRENT MEDICATIONS Reviewed and are as outlined in the EMR VITAL SIGNS Height is 170 cm, weight is 60 kg, temperature 36.6, pulse 72, blood pressure 94/50. PHYSICAL EXAMINATION She appears well and in no distress. Neck is without adenopathy. Lungs are clear without wheeze crackle or rhonchus. Heart is regular rate and rhythm. Abdomen is soft with no tenderness or masses. Bowel sounds are normal. IMPRESSION/REPORT/PLAN Abdominal discomfort, especially postprandial. A have suggested that she may have irritable bowel syndrome but that this is a diagnosis of exclusion. I have recommended peds GI evaluation and this appointment will be set up for her. Labs today will be comprehensive metabolic panel TSH chemistries. Will also obtain stool studies. JLF/clf Signed Margarita Morrow M.D. Family Medicine Electronically Signed By: MARGARITA MORROW MD On: 02/03/2011 01:15 PM Source: [facility] MHSDOLBEYNONRADSYS Document Id: [id number] documented in this encounter Nursing Notes Conversion, Historical Provider Ser - 11/18/2010 3:35 PM CDT gi appt [facility] gi appt pending Electronically Signed By: LOIS CASAS LPN On: 11/18/2010 03:35 pm Source: [facility] POWERCHART Document Id: [id number] documented in this encounter Miscellaneous Notes Miscellaneous - Margarita Skelton M.D. - 11/22/2010 4:57 PM CDT Results Notification Document Contains Addenda Addendum by CATA MALHOTRA on 27 November 2010 10:44:18 CDT Patient notified. SHARON From: MARGARITA MORROW MD To: ANTONY MCGARRY LOIS Sent: 11/22/2010 16:57:00 CDT ! Show up: 11/22/2010 16:56:00 CDT Subject: Results Notification Actions: Notify patient of results Due Date/Time: 11/22/2010 16:56:00 CDT Source: [facility] [employer] Document Id: [id number] Electronically signed by Conversion, [facility] Combine Mechanic [id number] at 10/05/2016 3:46 PM CDT Suricellshannon - Margarita Skelton M.D. - 11/19/2010 9:20 AM CDT Results Notification Document Contains Addenda Addendum by GEO CHAVIS on 19 November 2010 09:58:28 CDT MAILED TO PATIENT. From: MARGARITA MORROW MD To: LOIS CASAS Sent: 11/19/2010 09:20:12 CDT ! Show up: 11/19/2010 09:19:00 CDT Subject: Results Notification Actions: Notify patient of results Due Date/Time: 11/19/2010 09:19:00 CDT Source: [facility] POWERCHART Document Id: [id number] Electronically signed by Conversion, [facility] Combine Mechanic [id number] at 10/05/2016 3:46 PM CDT SuricellMargarita Recinos M.D. - 11/18/2010 5:12 PM CDT Results Notification Document Contains Addenda Addendum by GEO CHAVIS on 19 November 2010 09:58:15 CDT MAILED TO PATIENT. From: MARGARITA MORROW MD To: LOIS CASAS Sent: 11/18/2010 17:12:56 CDT ! Show up: 11/18/2010 17:12:00 CDT Subject: Results Notification Actions: Notify patient of results Due Date/Time: 11/18/2010 17:12:00 CDT Source: [facility] [employer] Document Id: [id number] Electronically signed by Conversion, [facility] Combine Mechanic [id number] at 10/05/2016 3:46 PM CDT Miscellaneous - Conversion, Historical Provider Ser - 11/18/2010 1:31 PM CDT Pediatric Embossing Machine Operator Intake/History Pediatric Embossing Machine Operator Intake/History Entered On: 11/18/2010 13:32 CDT Performed On: 11/18/2010 13:31 CDT by LOIS CASAS LPN Intake Chief Complaint: stomach Temperature Core: 36.6C(Converted to: 97.9DegF) Peripheral Pulse Rate: 72/min Systolic Blood Pressure: 94mmHg Diastolic Blood Pressure: 50mmHg (LOW) NIBP Mean: 65mmHg BP Location: Left upper extremity Height: 170.00cm(Converted to: 5ft 7in, 66.93in) Actual Weight: 60.000kg(Converted to: 132lb 4oz) Dosing Weight Clinic: 60.00kg Clinic BSA: 1.68 Body Mass Index: 20.76kg/m2 LOIS CASAS LPN - 11/18/2010 13:31 CDT Subjective Pain Symptoms: Yes LOIS CASAS LPN - 11/18/2010 13:31 CDT Pain Pain Assessment Grid Pain 1 Location: Abdomen LOIS CASAS LPN - 11/18/2010 13:31 CDT Dependent Habits Tobacco Use/Currently Using: No LOIS CASAS LPN - 11/18/2010 13:31 CDT Allergy Allergies (Active) NKA Estimated Onset Date: Unspecified ; Created By: LORE ALEGRIA RN; Reaction Status: Active; Category: Drug ; Substance: NKA ; Type: Allergy ; Updated By: LORE ALEGRIA RN; Reviewed Date: 11/18/2010 13:30 CDT Source: [facility] [employer] Document Id: [id number] CDT!22 documented in this encounter Plan of Treatment Not on filedocumented as of this encounter Visit Diagnoses Not on filedocumented in this encounter
--- OUTSIDE RECORDS SUMMARY | 2022-01-24 14:11 | XMS_ITS | Encounter Summary ---
:1995 Author Organization [facility] [place] [address] Care Team Providers Name Role Phone Unavailable Primary Care Provider Unavailable Encounter Details Date Type Department Care Team Description 04/11/[address] [facility] FBHB FAMILYPRA Brandin Christian P.A.-C. [address] [place] [phone] (Wo rk) Social History Tobacco Use Types Packs/Day Years Used Date Smoking Tobacco: Never Assessed Sex Assigned at Date Recorded Female 07/27/2019 2:28 PM CDT documented as of this encounter Progress Notes Rupert Christian P.A.-C. - 04/11/2011 12:00 AM CST [id number] CHIEF COMPLAINT/ REASON FOR VISIT His abdominal pain. HISTORY OF PRESENT ILLNESS Chandrika is a pleasant 16-year-old female who over the last year has been experiencing abdominal pain off and on. She has had colonoscopy for evaluation. She has been evaluated by pediatric GI as recently as yesterday and yesterday was admitted to the fructose breath test where she has ingestion of a fairly large amount of fructose. She did have delayed absorption of this which means the test was positive. She felt some cramping her abdomen yesterday but today went to school and got her period and in addition to that felt cramping in her abdomen so she went in the bathroom and spent about 45 minutes having a very large bowel movement. After the large bowel movement she became quite lightheaded and dizzy and was unable to actually get off the toilet. She eventually was able to get enough strength to get a hold of someone and was brought into the clinic. She says that the abdominal pain has persisted. She did feel nauseated but did not vomit. She says that she has never been sexually active. She has vaginal discharge from her period otherwise no other abnormal vaginal discharge was noted VITAL SIGNS Noted in the electronic medical record. PHYSICAL EXAM GENERAL: She appears uncomfortable. She appears pale in appearance and does not feel well. HEART: Regular rate and rhythm with no murmurs. LUNGS: Clear to auscultation. ABDOMEN: Positive bowel sounds and is soft with tenderness to palpation in the suprapubic area. She did just urinate prior to coming in the office today and had no discomfort with urination. There is some guarding with palpation of her abdomen but no rebound tenderness was noted. IMPRESSION/REPORT/PLAN Abdominal pain. I reviewed her labs that were done yesterday in [place] and other than the abnormal fructose absorption test there were no other abnormalities including stool cultures that were normal. Today likely this may have just been her passing the fructose from her test and she may have had a vasovagal reaction which causes her to continue to be quite pale but she does have ongoing abdominal discomfort so I think it is worthwhile to further evaluate this will get a CT scan of her abdomen today as well as a CBC and electrolyte panel. I will obtain these tests today and I will notify her when I get the results. She is in agreement with this plan. I will also attempt to contact Dr. Lagos who is a pediatric closed circuit screen watcher who saw her yesterday TLR/clf Signed [facility] Electronically Signed By: RUPERT CHRISTIAN PA-C On: 04/11/2011 03:31 PM Source: [facility] MHSDOLBEYNONRADSYS Document Id: [id number] KOL OPERATOR Rupert Christian P.A.-C. - 04/11/2011 12:00 AM CST [id number] CHIEF COMPLAINT / REASON FOR VISIT I got Chandrika's CT scan back today which did show some swelling around the portal vein per the radiologist report. She had liver function tests drawn yesterday that were normal. This may have just been an incidental finding. I called and discussed this with Chandrika's mother and she said that this afternoon she is feeling much better. She did have an abnormal fructose absorption test yesterday at [place] and I spoke with Dr. Olivares, who is the pediatric closed circuit screen watcher who had seen her for this. She will be setting up a follow up for Chandrika to be seen again down in [place] for further evaluation and treatment of this problem. At this time I think Chandrika is continuing to improve and likely her symptoms today were from expelling the large amount of fructose from the test that she had done yesterday. Her mother was reassured with this and will have him follow up as scheduled in [place]. If there are any questions or problems or worsening of symptoms in the meantime they will let us know. TLR/kln Signed [facility] Electronically Signed By: RUPERT CHRISTIAN PA-C On: 04/14/2011 05:45 PM Source: [facility] MHSDOLBEYNONRADSYS Document Id: [id number] KOL OPERATOR documented in this encounter Miscellaneous Notes Miscellaneous - Rupert Christian P.A.-C. - 04/11/2011 12:42 PM CST Ambulatory Patient Summary [address] [id number] Visit Information Name: CHANDRIKA ESQUEDA Current Date: 04/11/2011 12:42:18 Primary Care Provider: MARGARITA MORROW MD Your Medications Here is a list of your medications. It is important to take your medications as directed. Use a pillbox or chart to help remind you to take your medications. Please let your doctor or nurse know if you have problems taking your medications. Medication/Strength Dose Route Frequency Indications/Special Instructions/Comments No Medications found Your Allergies & Intolerances Substance Reaction Symptoms Category Comments NKA Drug Your Problem List Problem Status Onset Comments No Problems found Your Recommendations We want to make sure [...] Chlamydia every 1 year Females Age 16-24 04/11/2011 Your Upcoming Appointments Date Time Location Reason Provider No Appointments found Your Goals/Additional instructions: Source: [facility] POWERCHART Document Id: [id number] KOL OPERATOR Miscellaneous - Rupert Christian P.A.-C. - 04/11/2011 12:42 PM CST Ambulatory Depart Summary [address] [address] Visit Information Name: CHANDRIKA ESQUEDA Visit Date: 04/11/2011 10:53 AM Physicians Attending Physician: RUPERT CHRISTIAN PA-C Primary Care Provider: MARGARITA MORROW MD LILLYCHANDRIKA JUNIOR has been given the following list of medications: Your Medications It is important to take your medications as directed. Use a pill box or chart to help remind you to take your medications. Please let your doctor or nurse know if you have problems taking your medications. Medication/Strength Dose Route Frequency Indications/Special Instructions/Comments No Medications found Additional Information: Source: [facility] POWERCHART Document Id: [id number] KOL OPERATOR Miscellaneous - Conversion, Historical Provider Ser - 04/11/2011 11:45 AM THIOKOL OPERATOR Pediatric Railroad Passenger Agent Intake/History Pediatric Railroad Passenger Agent Intake/History Entered On: 04/11/2011 11:48 THIOKOL OPERATOR Performed On: 04/11/2011 11:45 THIOKOL OPERATOR by CATA MALHOTRA Chief Complaint : Abd. pain. Has been doing different test since summer. Today, sharp cramps and thought she was going to faint in school. LMP Date : 04/11/2011 Temperature Core : 36.4C(Converted to: 97.5DegF) (LOW) Peripheral Pulse Rate : 52/min (LOW) Respiratory Rate : 16/min Systolic Blood Pressure : 110mmHg Diastolic Blood Pressure : 48mmHg (<LLOW) NIBP Mean : 69mmHg BP Location : Left upper extremity Heart Rhythm : Regular Actual Weight : 64kg(Converted to: 141lb 2oz) Weight Source : Standing scale Dosing Weight Clinic : 64.00kg CATA MALHOTRA - 04/11/2011 11:45 THIOKOL OPERATOR Subjective Pain Symptoms : Yes CATA MALHOTRA - 04/11/2011 11:45 THIOKOL OPERATOR Pain Pain Assessment Grid Pain 1 Location : Abdomen Laterality : Bilateral Intensity : 8 CATA MALHOTRA - 04/11/2011 11:45 THIOKOL OPERATOR Dependent Habits Tobacco Use/Currently Using : No Smoking Status : Never smoker CATA MALHOTRA - 04/11/2011 11:45 THIOKOL OPERATOR Allergy Allergies (Active) NKA Estimated Onset Date: Unspecified ; Created By: LORE ALEGRIA RN; Reaction Status: Active; Category: Drug ; Substance: NKA ; Type: Allergy ; Updated By: LORE ALEGRIA RN; Reviewed Date: 11/18/2010 13:30 CDT Source: [facility] [employer] Document Id: [id number] THIOKOL OPERATOR!26 documented in this encounter Plan of Treatment Not on filedocumented as of this encounter Visit Diagnoses Not on filedocumented in this encounter
--- OUTSIDE RECORDS SUMMARY | 2022-01-24 14:11 | XMS_ITS | Encounter Summary ---
:1995 Author Organization [facility] Address [address] [place] [address] Care Team Providers Name Role Phone Unavailable Primary Care Provider Unavailable Encounter Details Date Type Department Care Team Description 04/29/2010 Hospital Encounter HX [facility]ILY[facility] Fabi Kam M.D. [address] [place], [place] [address] (Wo rk) Social History Tobacco Use Types Packs/Day Years Used Date Smoking Tobacco: Never Assessed Sex Assigned at Date Recorded Female 07/27/2019 2:28 PM CDT documented as of this encounter Progress Notes Kylah Kam M.D. - 04/29/2010 12:00 AM CST [id number] IMPRESSION/REPORT/PLAN Viral syndrome. PLAN Recommend increasing supportive measures. Signs and symptoms to lead to a more urgent evaluation are reviewed. Mother and patient are comfortable with this plan and will follow up as noted. Influenza is negative. CHIEF COMPLAINT/REASON FOR VISIT Sore throat. HISTORY OF PRESENT ILLNESS 15 year-old female presents to the clinic secondary to URI symptoms for the last three days. Has a sore ear left greater than right. Episodic greenish nasal discharge but this is primarily in the morning. Has had a cold which began on the 24th but has gotten worse over the last 24 hours. Entire family has been ill. Daycare is in the home. Does feel achy in her total body. EMR is reviewed. Please see the chart. CURRENT MEDICATIONS Post-visit Medication Reconciliation None. PAST MEDICAL/SURGICAL HISTORY PREVENTIVE SERVICES Pediatric preventative services: Up to date. Tobacco exposure: None. Influenza was declined. VITAL SIGNS DATE/TIME 04-29-2010 WEIGHT 63.3 kg TEMPERATURE 36.8 degreesC RESP RATE 16 / min PULSE 64 SYSTOLIC 94 DIASTOLIC 52 PHYSICAL EXAM AREA EXAM TEXT GENERAL Fatigued appearing female. ENT TMs are jordan with good visualization of landmarks. Nose: Mucous membranes moist are boggy. Oral no exudates. Brace is in place. Mild pharyngeal erythema. LYMPH NODES Neck is supple. Trachea is midline. No cervical adenopathy. THYROID No masses, tenderness or enlargement. HEART Regular rate and rhythm LUNGS Clear to auscultation BJ/kmk Signed Kylah Kam M.D. Family Medicine Electronically Signed By:KYLAH KAM MD On 05/01/2010 11:05 AM Source: [facility] MHSDOLBEYNONRADSYS Document Id: [id number] ESSOR OF COMMUNICATION ARTS documented in this encounter Miscellaneous Notes Miscellaneous - Kylah Kam M.D. - 04/29/2010 4:41 PM CST [place] [address] Visit Information Name: CHANDRIKA ESQUEDA Current Date: 04/29/2010 16:41:21 Primary Care Provider: MARGARITA MORROW MD [id number] Your Medications Here is a list of [...] Screening Chlamydia every 1 year Females Age 15-24 04/29/2010 Your Upcoming Appointments Date Time Location Reason Provider No Appointments found Your Goals/Additional instructions: [facility] POWERCHART Document Id: [id number] Electronically signed by Conversion, [facility] Director Of Family Service Center [id number] at 10/06/2016 5:53 AM CDT Miscellaneous - Kylah Kam M.D. - 04/29/2010 4:41 PM CST Ambulatory Depart Summary [address] [address] Visit Information Name: CHANDRIKA ESQUEDA Current Date: 04/29/2010 16:41:21 Primary Care Provider: MARGARITA MORROW MD [id number] CHANDRIKA ESQUEDA has been given the following list of medications: Your Medications It is important to take your medications as directed. Use a pill box or chart to help remind you to take your medications. Please let your doctor or nurse know if you have problems taking your medications. Medication/Strength Dose Route Frequency Indications/Special Instructions/Comments No Medications found Additional Information: Source: [facility]Innom[facility] Security TechnologiesCHART Document Id: [id number] Electronically signed by Conversion, [facility] Director Of Family Service Center [id number] at 10/06/2016 5:53 AM CDT Miscellaneous - Leandra Davenport L.P.N. - 04/29/2010 3:57 PM CST Pediatric Patient Safety Manager Intake/History Pediatric Patient Safety Manager Intake/History Entered On: 04/29/2010 15:58 PROFESSOR OF COMMUNICATION ARTS Performed On: 04/29/2010 15:57 PROFESSOR OF COMMUNICATION ARTS by LEANDRA DAVENPORT LPN Intake Chief Complaint: sore throat ear pain Temperature Core: 36.8C(Converted to: 98.2DegF) Peripheral Pulse Rate: 64/min Respiratory Rate: 16/min Systolic Blood Pressure: 94mmHg Diastolic Blood Pressure: 52mmHg NIBP Mean: 66mmHg BP Location: Left upper extremity Actual Weight: 63.300kg(Converted to: 139lb 9oz) Dosing Weight Clinic: 63.30kg LEANDRA DAVENPORT LPN - 04/29/2010 15:57 PROFESSOR OF COMMUNICATION ARTS Subjective Pain Symptoms: Yes LEANDRA DAVENPORT LPN - 04/29/2010 15:57 PROFESSOR OF COMMUNICATION ARTS Pain Pain Assessment Grid Pain 1 Pain 2 Location: Ear Throat Laterality: Bilateral LEANDRA DAVENPORT LPN - 04/29/2010 15:57 PROFESSOR OF COMMUNICATION ARTS LEANDRA DAVENPORT LPN - 04/29/2010 15:57 PROFESSOR OF COMMUNICATION ARTS Dependent Habits Tobacco Use/Currently Using: No LEANDRA DAVENPORT LPN - 04/29/2010 15:57 PROFESSOR OF COMMUNICATION ARTS Allergy Allergies (Active) NKA Estimated Onset Date: Unspecified ; Created By: LORE ALEGRIA RN; Reaction Status: Active; Category: Drug ; Substance: NKA ; Type: Allergy ; Updated By: LORE ALEGRIA RN; Reviewed Date: 04/29/2010 15:57 PROFESSOR OF COMMUNICATION ARTS Source: [facility] [employer]il Document Id: [id number] PROFESSOR OF COMMUNICATION ARTS!23 ESSOR OF COMMUNICATION ARTS documented in this encounter Plan of Treatment Not on filedocumented as of this encounter Visit Diagnoses Not on filedocumented in this encounter
--- OUTSIDE RECORDS SUMMARY | 2022-01-24 14:11 | XMS_ITS | Encounter Summary ---
:1995 Author Organization [facility] [place] [address] Care Team Providers Name Role Phone Unavailable Primary Care Provider Unavailable Encounter Details Date Type Department Care Team Description 12/30/2010 Hospital Encounter HX [facility] B[facility] Zaynab Barr i, M.D. [address] [place] [address] (Wo rk) Social History Tobacco Use Types Packs/Day Years Used Date Smoking Tobacco: Never Assessed Sex Assigned at Date Recorded Female 07/27/2019 2:28 PM CDT documented as of this encounter Plan of Treatment Not on filedocumented as of this encounter Procedures Procedure Name Priority Date/Time Associated Diagnosis Comme nts US ABDOMEN LIMITED Routine 12/30/2010 8:43 AM Res ults for this CDT procedure are i n the results section. documented in this encounter Results US Abdomen Limited (12/30/2010 8:43 AM CDT) Anatomical Region Laterality Modality Abdomen N/A Ultrasound Specimen (Source) Anatomical Collection Method Collection Time Re ceived Time Location / / Volume Laterality 12/30/2010 8:43 AM CDT Addenda Addendum by ProviderBro M.D. o n 12/30/2010 8:43 AM CDT RAD^^^OW US Abdomen Limited 12/30/2010 08:43:00 Addendum by ProviderBro M.D. o n 12/30/2010 8:43 AM CDT RAD^^^MA US ABDOMEN LIMITED 12/30/2010 08:43:00 Impressions 12/30/2010 9:38 AM CDT Negative exam. Narrative 12/30/2010 9:38 AM CDT HISTORY: Episodic nausea and diarrhea. ?? Technique: Transabdominal grayscale and Doppler imaging of the right upper quadrant was performed. ?? COMPARISON: None. ?? FINDINGS: The liver is not enlarged and displays normal echogenicity throughout without evidence of a focal l esion. No biliary dilatation is observed as the maximum diameter of t he common bile duct is less than 3 mm. The gallbladder images normal ly without evidence of wall thickening or gallstones. No ascites is observed. The visualized portions of the pancreas are normal. The right kidney is normal in size with a length of 10.2 cm and cortic al thickness/echogenicity appear to be preserved for age 15. There is no sonographic evidence of a right renal mass, calculus, or hydrone phrosis. The proximal abdominal aorta is not dilated. The IVC and portal veins are patent with appropriate flow directionality. No definite Doppler abnormality is identified in the right upper quadran t. ?? Procedure Note Marcelo Dela Cruz M.D. / ProviderHeidi M.D. - 09/25/2016 HISTORY: Episodic nausea and diarrhea. Technique: Transabdominal grayscale and Doppler imaging of the right upper quadrant was performed. COMPARISON: None. FINDINGS: The liver is not enlarged and displays normal echogenicity throughout without evidence of a focal l esion. No biliary dilatation is observed as the maximum diameter of t he common bile duct is less than 3 mm. The gallbladder images normal ly without evidence of wall thickening or gallstones. No ascites is observed. The visualized portions of the pancreas are normal. The right kidney is normal in size with a length of 10.2 cm and cortic al thickness/echogenicity appear to be preserved for age 15. There is no sonographic evidence of a right renal mass, calculus, or hydrone phrosis. The proximal abdominal aorta is not dilated. The IVC and portal veins are patent with appropriate flow directionality. No definite Doppler abnormality is identified in the right upper quadran t. IMPRESSION: Negative exam. Kirill Juarez Jr., RSamuelM.S. IMG US PROCEDURES documented in this encounter Visit Diagnoses Not on filedocumented in this encounter
[2022-01-29 01:38] LABS: Progesterone, HPLC-MS/MS 2.19 ng/mL
== END 2022-01-24 13:11 | disposition home or self-care (01) ==
LOC: NFLDREF 14:06
PROVIDERS: Visit Provider Registered Nurse
DX: N97.9 Female infertility, unspecified (principal); Z31.9 Encounter for procreative management, unspecified
CPT/HCPCS: 84144

== ENCOUNTER 2022-02-01 11:57 | Outpatient (CLI) | payer BC, SELFPAY ==
--- OUTSIDE RECORDS SUMMARY | 2022-02-01 11:59 | XMS_ITS | Encounter Summary ---
:1994 Author Organization [facility] [place] [address] Care Team Providers Name Role Phone Jake Villegas M.D. Primary Care Provider Reason for Visit Reason Comments Med Refill Encounter Details Date Type Department Care Team Description 08/25/2020 Refill Department of Family Medicine, Laura Christa Med Refill [facility], in Zaynab Mdarigal M.D. [place] [address] [place] [address] [place] [address] [phone] Social History Tobacco Use Types Packs/Day Years [...] on filedocumented in this encounter Care Teams Lime Mixer Tender Relationship Specialty Start Date End Date Jake Villegas M.D. PCP - General 06/14/[address] [place], [place] [address] [phone] documented as of this encounter
--- OUTSIDE RECORDS SUMMARY | 2022-02-01 11:59 | XMS_ITS | Encounter Summary ---
:1994 Author Organization [facility] [place] [address] Care Team Providers Name Role Phone Jake Villegas M.D. Primary Care Provider Encounter Details Date Type Department Care Team Description 11/20/2020 Orders Only [facility] MNT Shalini Villegas M.D. [address] [place], [place] [phone] (Wo rk) Social History [...] on filedocumented in this encounter Care Teams Quality Engineer Relationship Specialty Start Date End Date Jake Villegas M.D. PCP - General 06/14/20 [address] [place] [address] documented as of this encounter
--- OUTSIDE RECORDS SUMMARY | 2022-02-01 11:59 | XMS_ITS | Encounter Summary ---
:1994 Author Organization [facility] [place] [address] Care Team Providers Name Role Phone Jake Villegas M.D. Primary Care Provider Reason for Referral Specialty Diagnoses / Procedures Referred By Contact Refer red To Contact Jake Villegas M.D . [facility] [address] [place] [address] Referral ID Status Reason Start Date Expiration Date Visits Requ ested Visits Authorized Encounter Details Date Type Department Care Team Description 01/20/2022 Orders Only [facility] ANASTASIAT Shalini Villegas M.D. [address] [place] [phone] (Wo rk) Social History Tobacco [...] on filedocumented in this encounter Care Teams Entry Level Recruiter Relationship Specialty Start Date End Date Jake Villegas M.D. PCP - General 06/14/[address] [place] [phone] documented as of this encounter
--- OUTSIDE RECORDS SUMMARY | 2022-02-01 11:59 | XMS_ITS | Clinical Summary ---
:1994 Author Organization [facility] [place] [address] Care Team Providers Name Role Phone Jake Villegas M.D. Primary Care Provider Source Comments Patient records contain information from all sites at [facility]. For routine questions regarding patient records, call [phone] during business hours, M-F 8:00 AM - 5:00 PM Central Time. Record requests for emergency care only can be directed to [phone] at any time.[facility] Allergies Active Allergy Reactions Severity Noted [...] 37 ??C (98.6 ??F) 03/29/2018 2:00 PM NETWORK ANNOUNCER Respiratory Rate 16 03/29/2018 2:00 PM NETWORK ANNOUNCER Oxygen Saturation 100% 01/04/2022 6:36 PM CDT Inhaled Oxygen Concentration - - Weight 91 kg (200 lb 9.9 oz) 01/04/2022 6:44 PM CDT Height 171 cm (5' 7.32) 03/29/2018 2:00 PM NETWORK ANNOUNCER Body Mass Index 31.12 03/29/2018 2:00 PM NETWORK ANNOUNCER Plan of Treatment Health Maintenance Due Date [...] ss Type Group [place] [id number] 2021-[place] [phone] [address] [facility] [address] [facility] [place] [address] 2012 [address] [facility] (Home) [place] [phone] Care Teams Research Assistant Professor Relationship Specialty Start Date End Date Jake Villegas M.D. PCP - General 06/14/[address] [place] [address] Ave [place] [phone]
--- OUTSIDE RECORDS SUMMARY | 2022-02-01 11:59 | XMS_ITS | Encounter Summary ---
:1994 Author Organization [facility] [place] [address] Care Team Providers Name Role Phone Jake Villegas M.D. Primary Care Provider Reason for Referral Outpatient (Routine) - Authorized Specialty Diagnoses / Procedures Referred By Contact Refer red To Contact Family Medicine Jake Villegas M.D . [facility] [address] [place] [address] Referral ID Status Reason Start Date Expiration Date Visits V isits Requested Authorized [id number] Authorized 08/06/2021 08/06/2022 1 1 Encounter Details Date Type Department Care Team Description 08/06/2021 Orders Only [facility] Shalini Villegas M.D. [address] [place] [phone] (Wo rk) Social History Tobacco [...] on filedocumented in this encounter Care Teams Printing Machine Mechanic Relationship Specialty Start Date End Date Jake Villegas M.D. PCP - General 06/14/[address] [place] [phone] documented as of this encounter
--- OUTSIDE RECORDS SUMMARY | 2022-02-01 11:59 | XMS_ITS | Encounter Summary ---
:1994 Author Organization [facility] [place] [address] Care Team Providers Name Role Phone Jake Villegas M.D. Primary Care Provider Encounter Details Date Type Department Care Team Description 07/25/2020 Virtual Visit Department of Family Minh Siddiqui, COVID -19 Infection Medicine, [facility] [place] (Prima ry Dx) [facility] in [address] [place] [address] Social History Tobacco Use Types [...] - Date/Time SARS Coronavirus-2 RNA, V Asymptomatic [[id number]] (Abnormal) Collected: 07/24/20 1120 Lab Status: Final result Specimen: Varies from Nasopharynx Updated: 07/25/20 0438 SARS-CoV-2 Specimen Source Swab, Nasopharynx SARS CoV-2 RNA, TMA Detected Comment: SARS-CoV-2 RNA present. ----ADDITIONAL INFORMATION---- This molecular amplification test was performed using the Aptima SARS-CoV-2 assay ([employer] on the [employer] System under emergency use authorization (EUA) by the U.S. Food and Drug Administration. Fact sheets for this EUA assay can be found at the following links: For Healthcare Providers: https://www.fda.gov/media/323008/download For Patients: https://www.fda.gov/media/373742/download ASSESSMENT/PLAN #1 COVID-19 disease Duration of Isolation [...] Flag The COVID infection flag in the [place] Chart will 20 days from the date [...] which time the patient may return to [facility] for onsite appointments. [email or web address] 70709 Quarantine of household members/close contacts [facility] continues to recommend 14 days quarantine for [...] to end home isolation. Minh Siddiqui M.D. [place] COVID Care Team [facility] This was a virtual visit. The patient [...] documented as of this encounter Care Teams Home Energy Consultant Supervisor Relationship Specialty Start Date End Date Jake Villgeas M.D. PCP - General 06/14/[address] [place] [address] [place] [phone] documented as of this encounter
--- OUTSIDE RECORDS SUMMARY | 2022-02-01 11:59 | XMS_ITS | Encounter Summary ---
:1994 Author Organization [facility] [place] [address] Care Team Providers Name Role Phone Jake Villegas M.D. Primary Care Provider Reason for Visit Reason Comments Finger Laceration Laceration on left thumb Encounter Details Date Type Department Care Team Description 01/04/2022 Emergency [facility] La ceration Without Department P.A.-C. Foreign Body Left [address] [place] [address] Thumb Without Damage [place], [place], [place] To Nail [place] nit[place] [phone] (Primary Dx) [phone] (Wo rk) Social History Tobacco Use Types [...] Body Mass Index 31.12 03/29/2018 2:00 PM TRAFFIC RATE COMPUTER documented in this encounter Discharge Instructions Discharge [...] sent through Care Everywhere. Laceration Care Adult Rrgy-gs-Uluz (Swiss)documented in this encounter Medications at Time of [...] is a 26 y.o. female presents to [facility] requesting evaluation for laceration. No significant past medical history. Last tetanus greater than 5 years ago. Just prior to arrival patient cut non dominant left thumb on a pot. Wound hemostatic upon arrival. No loss of range of motion or function. No anticoagulants. No crush mechanism. No other acute complaints or concerns. History provided by: Patient and medical records photofinishing laboratory worker needed/used: no REVIEW OF SYSTEMS Constitutional: Negative [...] Given Lyric Peace 01/04/2022 1904 CDT Tdap: Jjipimg-orduvchhuz-cenrwbyih pertussis (PF) vaccine 0.5 mL 0.5 mL [...] dose documented in this encounter Care Teams Deck Mechanic Relationship Specialty Start Date End Date Jake Villegas M.D. PCP - General 06/14/[address] [place] [address] [place] [phone] documented as of this encounter
--- OUTSIDE RECORDS SUMMARY | 2022-02-01 11:59 | XMS_ITS | Encounter Summary ---
:1994 Author Organization [facility] [place] [address] Care Team Providers Name Role Phone Jake Villegas M.D. Primary Care Provider Reason for Referral Specialty Diagnoses / Procedures Referred By Contact Refer red To Contact Jake Villegas M.D . [facility] [address] [place] [address] Referral ID Status Reason Start Date Expiration Date Visits Requ ested Visits Authorized ACT LENS MANUFACTURER Encounter Details Date Type Department Care Team Description 03/30/2021 Orders Only [facility] P[facility] A[facility]ST[facility]IAT Shalini Villegas M.D. [address] [place] [phone] (Wo rk) Social History Tobacco [...] on filedocumented in this encounter Care Teams Head Start Assistant Teacher Relationship Specialty Start Date End Date Jake Villegas M.D. PCP - General 06/14/[address] [place] [address] [place] [phone] documented as of this encounter
--- OUTSIDE RECORDS SUMMARY | 2022-02-01 11:59 | XMS_ITS | Encounter Summary ---
:1994 Author Organization [facility] Address [address] [place] [address] Care Team Providers Name Role Phone Jake Villegas M.D. Primary Care Provider Reason for Visit Reason Comments Cough Encounter Details Date Type Department Care Team Description 04/08/2021 Nurse Triage Department of [facility] Caitie Chaves R.N. Cough Medicine, [facility], in [address] [facility] [address] [place] [address] [place] [address] [phone] (work) [phone] Social History Tobacco Use Types Packs/Day Years [...] throat clearing) Protocols used: COUGH - ACUTE GAKGMOZYAK-WMPVU-AQ Care Advice Patient/Caregiver understands and will follow [...] use a saline nasal spray bottle (available gpln-vaq-tbmnknz), a rubber ear syringe, a medical syringe [...] a nasal spray. * Pseudoephedrine (Sudafed): Available ucau-alj-mhcirht in pill form. Typical adult dosage is two 30mg tablets every 6 hours. * Oxymetazoline Nasal Drops (Afrin): Available gukq-vqu-jvazknq. Clean out the nose before using. Mears each nostril once, wait one minute for absorption, and then spray a second time. * Phenylephrine Nasal Drops (Jimmy-Synephrine): Available pcpe-rgb-kkkqfdy. Clean out the nose before using. Mears each nostril once, wait one minute for absorption, and then spray a second time. * Read the package instructions on all medicines that you take. FEVER MEDICINES: * For fevers above 101 F (38.3 C) take either acetaminophen or ibuprofen. * They are yfuw-qnj-sifpygd (OTC) drugs that help treat both fever and pain. [facility]. * The goal of fever therapy is [...] per Cough - Acute Productive (Adult) guideline. L MAID documented in this encounter Plan of Treatment Not on filedocumented as of this encounter Visit Diagnoses Not on filedocumented in this encounter Care Teams Social Media Community Manager Relationship Specialty Start Date End Date Jake Villegas M.D. PCP - General 06/14/[address] [place] [address] [place] [phone] documented as of this encounter
--- OUTSIDE RECORDS SUMMARY | 2022-02-01 12:00 | XMS_ITS | Encounter Summary ---
:1994 Author Organization [facility] [place] [address] Care Team Providers Name Role Phone Zaynab Roberts M.D. Primary Care Provider Encounter Details Date Type Department Care Team Description 04/09/2018 Orders Only Department of Family Norma barraza Epigastric Medicine, Zaynab Kulkarni, (Primary Dx) Clinic, in [place] [address] [phone] Social History Tobacco Use Types Packs/Day Years [...] Primary documented in this encounter Care Teams Piece Dye Worker Relationship Specialty Start Date End Date Zaynab Roberts M.D. PCP - General 10/16/16 06/13/202[address] [place] [address] documented as of this encounter
--- OUTSIDE RECORDS SUMMARY | 2022-02-01 12:00 | XMS_ITS | Encounter Summary ---
:1995 Author Organization [facility] Address [address] [place] [address] Care Team Providers Name Role Phone Zaynab Roberts M.D. Primary Care Provider [phone] Reason for Visit Reason Comments Other itching everywhere, for past 2 weeks Encounter Details Date Type Department Care Team Description 06/05/2017 Office Visit Department of Family Nury Greene Exanth em Viral Medicine, Rohan Galenaa (Primary Dx) Clinic, in [address] [address] [place], [place] [phone] [address] (Work) [phone] Social History Tobacco Use Types Packs/Day Years [...] Comments Blood Pressure 114/68 06/05/2017 4:21 PM CURRICULUM WRITER Pulse 68 06/05/2017 4:21 PM CURRICULUM WRITER Temperature 36.5 ??C (97.7 ??F) 06/05/2017 4:21 PM CURRICULUM WRITER Respiratory Rate 16 06/05/2017 4:21 PM CURRICULUM WRITER Oxygen Saturation - - Inhaled Oxygen Concentration - - Weight 77.2 kg (170 lb 3.1 oz) 06/05/2017 4:21 PM CURRICULUM WRITER Height - - Body Mass Index 27.03 02/25/2017 9:28 AM CDT documented in this encounter Patient Instructions Patient InstructionsNury Greene M.D. - 06/05/2017 4:15 PM CST 1. Exanthem Viral .Discussed etiology and expected prognosis. -Encouraged to eat fruits and vegetables every 4-6 hours to help with immune system. -Use benadryl as needed for itching. -Follow up if not improving or worsening. ICULUM WRITER documented in this encounter Progress Notes Nury Greene M.D. - 06/05/2017 4:15 PM CST DEPARTMENT OF FAMILY MEDICINE IN [place] Chief Complaint Chief Complaint Patient presents [...] with the final plan. Nury Greene M.D. ICULUM WRITER documented in this encounter Plan of Treatment Not on filedocumented as of this encounter Visit Diagnoses Diagnosis Exanthem Viral - Primary documented in this encounter Care Teams Shoe Lining Fitter Relationship Specialty Start Date End Date Zaynab Roberts M.D. PCP - General 10/16/16 06/13/[address] [address] documented as of this encounter
--- OUTSIDE RECORDS SUMMARY | 2022-02-01 12:00 | XMS_ITS | Encounter Summary ---
:1994 Author Organization [facility] [place] [place] [address] Care Team Providers Name Role Phone Zaynab Roberts M.D. Primary Care Provider Encounter Details Date Type Department Care Team Description 03/03/2017 Orders Only Department of Family Norma Scr eening Examination Diabetes Mellitus; Medicine in [place] Judy, León pandya Medical Examination Adult [facility].DJoshua [address] [facility] [address] [place] [address] [place], [place] [phone] [address] Social History Tobacco Use Types Packs/Day Years Used Date Smoking Tobacco: Never Sex Assigned at Date Recorded Female 07/27/2019 2:28 PM CDT documented as of this encounter Plan of Treatment Not on filedocumented as of this encounter Visit Diagnoses Diagnosis Screening Examination Diabetes Mellitus General Medical Examination Adult documented in this encounter Care Teams Asparagus Cutter Relationship Specialty Start Date End Date Zaynab Roberts M.D. PCP - General 10/16/16 06/13/20 [address] [place] [address] documented as of this encounter
--- OUTSIDE RECORDS SUMMARY | 2022-02-01 12:00 | XMS_ITS | Encounter Summary ---
:1994 Author Organization [facility] [place] [address] Care Team Providers Name Role Phone Zaynab Roberts M.D. 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 Please enter order and call when ready to schedule. documented in this encounter Plan of Treatment Not on filedocumented as of this encounter Visit Diagnoses Not on filedocumented in this encounter Care Teams Strategic Buyer Relationship Specialty Start Date End Date Zaynab Roberts M.D. PCP - General 10/16/16 06/13/[address] [phone] documented as of this encounter
--- OUTSIDE RECORDS SUMMARY | 2022-02-01 12:00 | XMS_ITS | Encounter Summary ---
:1994 Author Organization [facility] [place] [address] Care Team Providers Name Role Phone Zaynab Roberts M.D. Primary Care Provider [phone] Reason for Visit Reason Onset Date Comments Testing For Upper Respiratory Virus Symptoms 04/11/2020 Encounter Details Date Type Department Care Team Description 04/11/2020 External Outreach Department of [facility] Wily Driver [facility], [facility] Carine Steve Respiratory (Primary Building, in [address]) [place], [place] [address] [facility] [address] [place], [place] [phone] [address] (Work) [phone] Social History Tobacco Use Types Packs/Day Years [...] with possible COVID, Influenza, and RSV testing. TLE OPERATOR documented in this encounter Plan of Treatment Not on filedocumented as of this encounter Procedures Procedure Name Priority Date/Time Associated Comments Diagnosis SARS CORONAVIRUS 2 Routine 04/11/2020 12:10 Resul ts for this PCR DETECT, V PM SHUTTLE OPERATOR procedure are in the results section. documented in this encounter Results SARS Coronavirus 2 RNA Detection (04/11/2020 12:10 PM SHUTTLE OPERATOR) [facility] Method Time Signature SARS-CoV-2 Nasopharynx 04/12/2020 [facility] Specimen 4:04 AM SHUTTLE OPERATOR Source SARS-CoV-2 Undetected Undetected 04/12/2020 [facility] RNA by PCR 4:04 AM SHUTTLE OPERATOR Comment: SARS-CoV-2 RNA absent. This result does not rule out COVID-19 in the patient, as the sensitivity of the test depends o n the timing of the specimen collection and the quality of the specim en. Result should be correlated with patient's history and clinical presentat ion. ----ADDITIONAL INFORMATION---- This PCR test was performed using the Produce Run SARS-CoV-2 assay ([employer] on the ban 6800 System under emergency use authorization (EUA) by the U.S. Food and Drug Administ ration. Fact sheets for this assay can be found at the following links: For Healthcare Providers: https://www.fd a.gov/media/527959/download For Patients: https://www.fda.gov/media/ 753108/download Specimen Anatomical Collection Method Collection Time Receive d Time (Source) Location / / Volume Laterality Varies 04/11/2020 12:10 04/11/2020 PM SHUTTLE OPERATOR 10:48 PM SHUTTLE OPERATOR Wily Driver D.O. LAB MICROBIOLOGY - GENERAL O RDERABLES Performing Organization Address City/State/ZIP Code Phon e Number [facility] [address] [place], [place] [address] [place] [address] [facility] [address] Laboratory Medicine and Pathology [address] [place] documented in this encounter Visit Diagnoses Diagnosis Infection Upper Respiratory - Primary documented in this encounter Additional Health Concerns Infection Onset Date Last Indicated Resolved Time COVID19 Pending 04/11/2020 04/11/2020 04/11/2020 2:39 PM SHUTTLE OPERATOR documented as of this encounter Care Teams Pre Sales Systems Engineer Relationship Specialty Start Date End Date Zaynab Roberts M.D. PCP - General 10/16/16 06/13/[address] [address] documented as of this encounter
--- OUTSIDE RECORDS SUMMARY | 2022-02-01 12:00 | XMS_ITS | Encounter Summary ---
:1994 Author Organization [facility] [place] [address] Care Team Providers Name Role Phone Zaynab Roberts M.D. Primary Care Provider [phone] Reason for Referral Outpatient (Routine) - Closed Specialty Diagnoses / Procedures Referred By Contact Refer red To Contact Family Medicine YURY Roberts SE, M.D. [address] [address] Referral ID Status Reason Start Date Expiration Date Visits Requ ested Visits Authorized [id number] Closed 03/21/2019 03/20/2020 1 1 R RECLAMATION SYSTEMS OPERATOR Encounter Details Date Type Department Care Team Description 03/21/2019 Orders Only [facility] Peterson M.[facility] [address] [phone] (Wo rk) Social History [...] Name Type Priority Associated Diagnoses Order S [facility] Family Medicine Outpatient Referral Routine Expec kayla: office visit 04/04/2019, (clinic) Expires: 03/21/2022 documented as of this encounter Visit Diagnoses Not on filedocumented in this encounter Care Teams Traffic Coordinator Relationship Specialty Start Date End Date Zaynab Roberts M.D. PCP - General 10/16/16 06/13/[address] [address] documented as of this encounter
--- OUTSIDE RECORDS SUMMARY | 2022-02-01 12:00 | XMS_ITS | Encounter Summary ---
:1994 Author Organization [facility] [place] [address] Care Team Providers Name Role Phone Zaynab Roberts M.D. Primary Care Provider [phone] Reason for Visit Reason Comments Med Refill Encounter Details Date Type Department Care Team Description 05/31/2018 Refill Department of Family Medicine, Kike Villafana Refill [facility], in Zaynab Madrigal M.D. [place] [address] [address] [place] [address] [phone] Social History Tobacco Use Types Packs/Day Years [...] on filedocumented in this encounter Care Teams People Greeter Relationship Specialty Start Date End Date Zaynab Roberts M.D. PCP - General 10/16/16 06/13/202199 [place] [address] documented as of this encounter
--- OUTSIDE RECORDS SUMMARY | 2022-02-01 12:00 | XMS_ITS | Encounter Summary ---
:1994 Author Organization [facility] [address] Care Team Providers Name Role Phone Margarita Roberts M.D. Primary Care Provider [phone] Encounter Details Date Type Department Care Team Description 02/25/2017 Hospital Encounter HX [facility] Margarita Peterson M.D. [address] [place], [place] [phone] (Wo rk) Social History [...] Result Letter February 26, 2017 CHANDRIKA ESQUEDA [address] [facility] [id number] Dear Beatriz LICONA, Your thyroid test is normal. Result Name Current Result Normal Range TSH, Sensitive-Higgins (mIU/L) 1.9 02/25/2017 0.3-4.2 - Sincerely, MARGARITA TRUJILLO [address] [place] [address] Electronic Signature Electronically Signed By: MARGARITA PALAFOX MD On: February 26, 2017 This document has images extracted. Source: [facility] POWERCHART Document Id: [id number] Miscellaneous - Margarita Roberts M.D. - 02/25/2017 8:12 PM CDT Custom Result Letter February 25, 2017 CHANDRIKA ESQUEDA [address] [facility] [id number] Dear Beatriz LIOCNA, Your blood counts are normal, chemistries including [...] 150 - 450 Sincerely, MARGARITA TRUJILLO [address] [place] [address] Electronic Signature Electronically Signed By: MARGARITA PALAFOX MD On: February 25, 2017 This document has images extracted. Source: [facility] POWERCHART Document Id: [id number] documented in this encounter Plan of Treatment [...] X109L Erythrocytes 4.41 3.90 - 5.03 POWERCHART Q5660T Hemoglobin 12.9 12.0 - 15.5 POWERCHART GDL [...] e Number POWERCHART POWERCHART NA Thyroid Function Geraldine (02/25/2017 9:44 AM CDT) P athologist Signature TSH, Sensitive 1.9 0.3 - 4.2 POWERCHART JENELLE Comment: Test Performed by: [address] [address] Specimen (Source) Anatomical Collection Method Collection Time [...] for FH and FDB is available adonisu [facility]: FH/ADH Genetic Reflex Almazan el (test ADHP). Acquired (non-genetic) causes of markedly increased LDL cholesterol include cholestatic liver disease due to the presence of LpX. If a genetic form of hypercholesterolemia is suspected, family studies including biochemical testing fo r lipids (total cholesterol,triglycerides, LDL cholesterol and HDL cholesterol) are recommended. ??Please contact the laboratory at or the on-line test catalog at [employer] for information about how to order these [...] 15 MMOLL POWERCHART HXeGFR (MDRD) >60 >=60 [id number] POWERCHART eGFR Black/ >60 >=60 [id number] POWERCHART Specimen (Source) Anatomical Collection Method Collection Time Re ceived Time Location / / Volume Laterality Blood 02/25/2017 9:44 AM CDT Margarita Roberts M.D. LAB BLOOD ADD-ON Performing Organization Address City/State/ZIP Code Phon e Number POWERCHART POWERCHART NA documented in this encounter Visit Diagnoses Not on filedocumented in this encounter Care Teams Manager Community Development Relationship Specialty Start Date End Date Margarita Roberts M.D. PCP - General 10/16/16 06/13/20 [address], [place] [address] documented as of this encounter
--- OUTSIDE RECORDS SUMMARY | 2022-02-01 12:00 | XMS_ITS | Encounter Summary ---
:1994 Author Organization [facility] [place] [address] Care Team Providers Name Role Phone Zaynab Roberts M.D. Primary Care Provider [phone] Encounter Details Date Type Department Care Team Description 05/07/2020 Orders Only [facility] Peterson M.[facility]. [address] [place], [place] [phone] (Wo rk) Social History [...] on filedocumented in this encounter Care Teams Client Service Representative Relationship Specialty Start Date End Date Zaynab Roberts M.D. PCP - General 10/16/16 06/13/[address] [address] documented as of this encounter
--- OUTSIDE RECORDS SUMMARY | 2022-02-01 12:00 | XMS_ITS | Encounter Summary ---
:1994 Author Organization [facility] [place] [address] Care Team Providers Name Role Phone Jake Villegas M.D. Primary Care Provider Encounter Details Date Type Department Care Team Description 07/24/2020 Admin Visit Department of Family Medicine, [address] [address] [facility] [phone] Social History Tobacco Use Types Packs/Day Years [...] documented as of this encounter Care Teams Fusion Analyst Relationship Specialty Start Date End Date Jake Villegas M.D. PCP - General 06/14/[address] [place], [place] [address] Proctor [address] documented as of this encounter
--- OUTSIDE RECORDS SUMMARY | 2022-02-01 12:00 | XMS_ITS | Encounter Summary ---
:1994 Author Organization [facility] [place] [place] [address] Care Team Providers Name Role Phone Zaynab Roberts M.D. Primary Care Provider [phone] Reason for Visit Reason Comments Med Refill Encounter Details Date Type Department Care Team Description 06/03/2017 Refill Department of Family Medicine, Kike Villafana Refmario [facility], in Zaynab Madrigal M.D. [place] [address] [address] [facility] [place] [address] [phone] Social History Tobacco Use Types Packs/Day Years Used Date Smoking Tobacco: Never Sex Assigned at Date Recorded Female 07/27/2019 2:28 PM CDT documented as of this encounter Plan of Treatment Not on filedocumented as of this encounter Visit Diagnoses Not on filedocumented in this encounter Care Teams Foam Machine Operator Relationship Specialty Start Date End Date Zaynab Roberts M.D. PCP - General 10/16/16 06/13/20 [address], [place] [address] documented as of this encounter
--- OUTSIDE RECORDS SUMMARY | 2022-02-01 12:00 | XMS_ITS | Encounter Summary ---
:[address] [facility] [place] [address] Care Team Providers Name Role Phone Zaynab Roberts M.D. Primary Care Provider Reason for Visit Reason Comments Rash Noted for two and half weeks . States rash does look different based on area of body. Recently started swimm ing. Not sure if cause. Appointment Request (Routine) - Closed Specialty Diagnoses / Procedures Referred By Contact Refer red To Contact Family Medicine Referral ID Status Reason Start Date Expiration Date Visits Requ ested Visits Authorized [id number] Closed 06/09/2017 12/06/2017 1 1 Encounter Details Date Type Department Care Team Description 06/10/2017 Office Visit Department of Family Isaiah Dunlap atitis (Primary Dx); Medicine, Zaynab Garza Managem ent [facility], in [place]ervin Madriagl [place] [address] [address] [phone] Social History Tobacco Use Types Packs/Day Years [...] Comments Blood Pressure 110/68 06/10/2017 11:38 AM SENIOR GROUP MANAGER Pulse 101 06/10/2017 11:38 AM SENIOR GROUP MANAGER Temperature 36.4 ??C (97.5 ??F) 06/10/2017 11:38 AM SENIOR GROUP MANAGER Respiratory Rate 16 06/10/2017 11:38 AM SENIOR GROUP MANAGER Oxygen Saturation 99% 06/10/2017 11:38 AM SENIOR GROUP MANAGER Inhaled Oxygen Concentration - - Weight 77.2 kg (170 lb 1.4 oz) 06/10/2017 11:38 AM SENIOR GROUP MANAGER Height 171 cm (5' 7.32) 06/10/2017 11:38 AM SENIOR GROUP MANAGER Body Mass Index 26.38 06/10/2017 11:38 AM SENIOR GROUP MANAGER documented in this encounter Progress Notes Zaynab [...] their behalf by Frida Espinosa, a trained certified medical assistant. The creation of this record is based on the scribe's personal observations and the provider's statements to them. This document has been chalo cked and approved by the attending provider. OR GROUP MANAGER documented in this encounter Plan of Treatment Not on filedocumented as of this encounter Visit Diagnoses Diagnosis Dermatitis - Primary Management Contraceptive documented in this encounter Care Teams Nutrition Consultant Relationship Specialty Start Date End Date Zaynab Roberts M.D. PCP - General 10/16/16 06/13/20 [address], [place] [address] documented as of this encounter
--- OUTSIDE RECORDS SUMMARY | 2022-02-01 12:00 | XMS_ITS | Encounter Summary ---
:1994 Author Organization [facility] [place] [address] Care Team Providers Name Role Phone Zaynab Roberts M.D. Primary Care Provider [phone] Encounter Details Date Type Department Care Team Description 04/06/2018 Clinical Communication Department of [facility] Noah Neumann, Medicine, Omak L.P.NJoshua [facility], [facility] [address] [place] [address] [place], [place] [phone] [address] (Work) [phone] Social History Tobacco Use Types Packs/Day Years [...] Kelli Neumann L.P.N. - 04/09/2018 11:59 AM HOT CAR OPERATOR Patient requesting upper gi endoscopy be completed at [facility] with patient returning call to clinic to schedule pre op appointment CAR OPERATOR Telephone Encounter - Toyin Pierre L.P.N. - 04/08/2018 8:52 AM HOT CAR OPERATOR Left msg to return my call CAR OPERATOR Telephone Encounter - Zaynab Roberts M.D. - 04/07/2018 6:22 PM HOT CAR OPERATOR . CAR OPERATOR Telephone Encounter - Zaynab Roberts M.D. - 04/06/2018 12:22 PM CST Inform Chandrika that the next step is to use daily omeprazole 20 mg once daily, upper GI endoscopy,consider GI consult. Please arrange for upper GI endoscopy CAR OPERATOR Telephone Encounter - Kelli Neumann L.PJoshuaNJoshua - 04/06/2018 11:43 AM HOT CAR OPERATOR Call received from patients mom oralia asking what the next step is or plan of care for patient due toabdominal pain continuing CAR OPERATOR documented in this encounter Plan of Treatment Not on filedocumented as of this encounter Visit Diagnoses Not on filedocumented in this encounter Care Teams Ophthalmologist Retina Specialist Relationship Specialty Start Date End Date Zaynab Roberts M.D. PCP - General 10/16/16 06/13/20 [address] [place] [address] documented as of this encounter
--- OUTSIDE RECORDS SUMMARY | 2022-02-01 12:00 | XMS_ITS | Encounter Summary ---
:1994 Author Organization [facility] [place] [address] Care Team Providers Name Role Phone Zaynab Roberts M.D. Primary Care Provider Reason for Visit Reason Onset Date Comments Med Refill 05/07/2017 Encounter Details Date Type Department Care Team Description 05/07/2017 Clinical Communication Department of [facility] Laura Chang Med [facility], [facility] in [place]erv[place] Phan [place] [address] [place] [address] [phone] Social History Tobacco Use Types Packs/Day Years Used Date Smoking Tobacco: Never Sex Assigned at Date Recorded Female 07/27/2019 2:28 PM CDT documented as of this encounter Miscellaneous Notes Telephone Encounter - Berna Wang, RJoshuaNJoshua - 05/07/2017 2:04 PM CST Notified Rx sent to pharmacy. R MAINTENANCE SUPERVISOR Telephone Encounter - Zaynab Roberts M.D. - 05/07/2017 2:00 PM WATER MAINTENANCE SUPERVISOR done R MAINTENANCE SUPERVISOR Telephone Encounter - Joann Fay - 05/07/2017 10:41 AM CST Pts mom Oralia calling regarding refill, pharmacy faxed yesterday, pt is out. Please call back R MAINTENANCE SUPERVISOR documented in this encounter Plan of Treatment Not on filedocumented as of this encounter Visit Diagnoses Not on filedocumented in this encounter Care Teams Band Maker Relationship Specialty Start Date End Date Zaynab Roberts M.D. PCP - General 10/16/16 06/13/20 [address] [place] [address] documented as of this encounter
--- OUTSIDE RECORDS SUMMARY | 2022-02-01 12:00 | XMS_ITS | Encounter Summary ---
:1994 Author Organization [facility] [place] [address] Care Team Providers Name Role Phone Unavailable Primary Care Provider Unavailable Encounter Details Date Type Department Care Team Description 04/04/2016 Hospital Encounter HX NO MAPPING Zaynab Roberts M.D. [address] [place], [place] [phone] (Wo rk) Social History Tobacco Use Types Packs/Day Years Used Date Smoking Tobacco: Never Assessed Sex Assigned at Date Recorded Female 07/27/2019 2:28 PM CDT documented as of this encounter Plan of Treatment Not on filedocumented as of this encounter Visit Diagnoses Not on filedocumented in this encounter
--- OUTSIDE RECORDS SUMMARY | 2022-02-01 12:00 | XMS_ITS | Encounter Summary ---
:1994 Author Organization [facility] [place] [address] Care Team Providers Name Role Phone Zaynab Roberts M.D. Primary Care Provider Encounter Details Date Type Department Care Team Description 05/07/2017 Abstract Department of Family Medicine, Provider, [facility], in [address] [address] Social History Tobacco Use Types Packs/Day Years Used Date Smoking Tobacco: Never Sex Assigned at Date Recorded Female 07/27/2019 2:28 PM CDT documented as of this encounter Plan of Treatment Not on filedocumented as of this encounter Visit Diagnoses Not on filedocumented in this encounter Care Teams Sliver Handler Relationship Specialty Start Date End Date Zaynab Roberts M.D. PCP - General 10/16/16 06/13/20 [address] [place] [address] documented as of this encounter
--- OUTSIDE RECORDS SUMMARY | 2022-02-01 12:00 | XMS_ITS | Encounter Summary ---
:1995 Author Organization [facility] Address [address] [place] [address] Care Team Providers Name Role Phone Margarita Roberts M.D. Primary Care Provider [phone] Encounter Details Date Type Department Care Team Description 11/11/2016 Hospital Encounter HX FBCV FAMILYPRA Margarita Eli M.D. [address] [place], [place] [phone] (Wo rk) Social History [...] Ordered: OV Est Pt Level 3 - [address]57[address] - 15 min Orders: neomycin/polymyxin B/hydrocortisone otic, 2 drop(s), Ear(Right), 4xDay, x 10 day(s), # 10 mL, 0 Refill(s), Acute, Pharmacy: [facility], [place], [place] Electronically Signed By: MARGARITA SKELTON MD On: 11/12/2016 08:15 AM Source: [facility] POWERCHART Document Id: [id number] documented in this encounter Miscellaneous Notes Miscellaneous - Haris Neumann, L.P.N. - 11/11/2016 4:58 PM CDT Adult Bosom Presser Intake/History Adult Bosom Presser Intake/History Entered On: 11/11/2016 17:00 CDT Performed [...] Preferred Communication Mode : Verbal Languages : Iranian Is Patient Female and 13-50 no hysterectomy : Yes Status : Patient denies Are you ? : No HARIS NEUMANN LPN - 11/11/2016 16:58 CDT Subjective Pain Symptoms : Yes HARIS NEUMANN LPN - 11/11/2016 16:58 CDT Pain Scale Pain Scale Verbal 0-10 : Open HARIS NEUMANN [facility] - 11/11/2016 16:58 CDT Pain Pain Assessment Grid Pain 1 Location : Ear Laterality : Right Intensity : 6 HARIS NEUMANN [facility] - 11/11/2016 16:58 CDT Dependent Habits Exposure to Tobacco Smoke : Other: Never Smoking Status : Never smoker Tobacco 2A : No Tobacco Use/Currently Using : No Tobacco Use/Last 30 Days : No Tobacco Use/Last 12 months : No HARIS NEUMANN [facility] - 11/11/2016 16:58 CDT Caffeine Use Grid Caffeine Use : Current Type : Chocolate, Soft drinks Frequency : Occasionally HARIS NEUMANN [facility] - 11/11/2016 16:58 CDT Recreational Drug Use Grid Drug Use : None HARIS NEUMANN [facility] - 11/11/2016 16:58 CDT Source: [employer] Document Id: [id number] CDT!51 documented in this encounter Plan of Treatment Not on filedocumented as of this encounter Visit Diagnoses Not on filedocumented in this encounter Care Teams Client Support Professional Relationship Specialty Start Date End Date Margarita Roberts M.D. PCP - General 10/16/16 06/13/[address] [address] documented as of this encounter
--- OUTSIDE RECORDS SUMMARY | 2022-02-01 12:00 | XMS_ITS | Encounter Summary ---
:1995 Author Organization [facility] [place] [address] Care Team Providers Name Role Phone aZynab Roberts M.D. Primary Care Provider [phone] Reason for Visit Appointment Request (Routine) - Closed Specialty Diagnoses / Procedures Referred By Contact Refer red To Contact Family Medicine Referral ID Status Reason Start Date Expiration Date Visits Requ ested Visits Authorized [id number] Closed 09/07/2017 03/06/2018 1 1 Encounter Details Date Type Department Care Team Description 09/09/2017 Nurse Only Department of Family Rabia Null, Medicine, [facility] in [facility] [address] [place] [address] [place] [address] Social History Tobacco Use Types Packs/Day [...] Exam documented in this encounter Care Teams Absorber Operator Relationship Specialty Start Date End Date Zaynab Roberts M.D. PCP - General 10/16/16 06/13/[address] [facility] [address] documented as of this encounter
--- OUTSIDE RECORDS SUMMARY | 2022-02-01 12:00 | XMS_ITS | Encounter Summary ---
:1995 Author Organization [facility] Address [address] [place] [address] Care Team Providers Name Role Phone Zaynab Roberts M.D. Primary Care Provider [phone] Encounter Details Date Type Department Care Team Description 04/11/2020 Admin Visit Department of Family Medicine, [address] [address] [facility] [phone] Social History Tobacco Use Types Packs/Day Years [...] COVID19 Pending 04/11/2020 04/11/2020 04/11/2020 2:39 PM WATER PLANT MAINTENANCE MECHANIC documented as of this encounter Care Teams Pearl Maker Relationship Specialty Start Date End Date Zaynab Roberts M.D. PCP - General 10/16/16 06/13/20 [address] [place] [address] documented as of this encounter
--- OUTSIDE RECORDS SUMMARY | 2022-02-01 12:00 | XMS_ITS | Encounter Summary ---
:1995 Author Organization [facility] [place] [address] Care Team Providers Name Role Phone Zaynab Roberts M.D. Primary Care Provider [phone] Encounter Details Date Type Department Care Team Description 09/24/2018 Hospital Encounter Department of Laboratory Laura Montanez Sore Throat Medicine in maria fernanda Madrigal Judy, M.D. [place] [address] [place] [phone] Social History Tobacco Use Types Packs/Day Years [...] Signature Strep Group A, Negative Negative 09/24/2018 [facility] PCR, POCT 11:04 AM CDT [facility] Specimen Anatomical Collection Method Collection Time Receive d Time (Source) Location / / Volume Laterality Varies 09/24/2018 11:04 09/24/2018 AM CDT 11:07 AM CDT Generic Rals LAB POCT ORDERABLES - DEVICE Performing Organization Address [facility]/ZIP Code Phon e Number [facility] [address] [facility] [place] [address] LAB Strep Group A, PCR, Point of Care (09/24/2018 10:47 AM CDT) Analysis Performed At Patho logist Time Signature Strep Group A, Collected DEFAULT 09/24/2018 [facility] PCR, POCT 10:48 AM CDT [facility] Specimen Anatomical Collection Method Collection Time Receive d Time (Source) Location / / Volume Laterality Varies (Throat) 09/24/2018 10:47 09/25/19 19 AM CDT 10:48 AM CDT Zaynab Roberts M.D. LAB POCT ORDERABLES - DEVICE Performing Organization Address City/[facility]/ZIP Code Phon e Number [facility] [address] [facility] [place] [address] LAB documented in this encounter Visit Diagnoses Diagnosis Sore Throat documented in this encounter Care Teams Company Driver Relationship Specialty Start Date End Date Zaynab Roberts M.D. PCP - General 10/16/16 06/13/[address] [place] [address] documented as of this encounter
--- OUTSIDE RECORDS SUMMARY | 2022-02-01 12:00 | XMS_ITS | Encounter Summary ---
:1995 Author Organization [facility] [place] [address] Care Team Providers Name Role Phone Unavailable Primary Care Provider Unavailable Encounter Details Date Type Department Care Team Description 02/18/2016 Hospital Encounter HX [facility] FBHB FAMILYPRA Brandin Menezes P.A.-C. [address] [place] [phone] (Wo rk) Social History Tobacco Use Types [...] Menezes P.A.-C. - 02/18/2016 1:45 PM CDT [id number] CHIEF COMPLAINT/REASON FOR VISIT Sinus congestion and [...] MENEZES PA-C On: 02/20/2016 08:56 AM Source: [facility] MHSDOLBEYNONRADSYS Document Id: [id number] documented in this encounter Miscellaneous Notes Miscellaneous [...] 0 Substitutions Allowed Route To Pharmacy - [facility], [place], [place] Signed by MARGARITA PALAFOX MD 02/21/2016 17:14:24 From: SHREYA POST RN To: MARGARITA PALAFOX MD; Sent: 02/21/2016 10:22:20 CDT Subject: refill request - Reclipsen On hold pending signature Order:desogestrel-ethinyl estradiol (Desogen 0.15 mg-0.03 mg oral tablet) 1 tab(s) PO Daily Due for Annual Visit with Primary Care Provider. Qty: 28 tab(s) Refills: 0 Substitutions Allowed Route To Pharmacy - [facility] [place] Caller is: ( ) [...] Call to Pharmacy ( ) Patient will garbage pick up worker Script ( ) Mail Rxto Patient Source: [facility] POWERCHART Document Id: [id number] Electronically signed by Taryn [facility] Senior Advisor [id number] at 09/28/2016 10:28 AM CDT Miscellaneous - Rupert Menezes PJoshuaATyrone. - 02/18/2016 2:28 PM CDT Ambulatory Patient Summary [place] [address] [place] [id number] Visit Information Name: CHANDRIKA ESQUEDA [facility] Number: [id number] Current Date: 02/18/2016 14:28:40 Physicians [...] day x 10 day(s) New Routed to [address] [address] desogestrel-ethinyl estradiol (Desogen 0.15 mg-0.03 [...] if you dont have one. Go to [email or web address] and click on Create Your Account. Then, follow the directions to complete the online form. Youll be asked for your [facility] number which you can find at the top of this document. Your Goals/Additional instructions: Source: [facility] POWERCHART Document Id: [id number] Miscellaneous - Rupert Menezes P.A.-C. - 02/18/2016 2:28 PM CDT Ambulatory Discharge Medication List [address] [place], [place] [phone] Visit Information Name: LILLY CHANDRIKA PACHECO [facility] Number: [id number] Current Date: 02/18/2016 14:28:40 Attending [...] day x 10 day(s) New Routed to [facility] [address] [place], [place] [id number] desogestrel-ethinyl estradiol (Desogen 0.15 mg-0.03 mg oral [...] PA-C Signed On:18-FEB-2016 14:28:35 Additional Information: Source: [facility] POWERCHART Document Id: [id number] Miscellaneous - Irma Duran L.P.N. - 02/18/2016 2:06 PM CDT Adult Confidential Secretary Intake/History Adult Confidential Secretary Intake/History Entered On: 02/18/2016 14:09 CDT Performed [...] Information Given By : Patient Languages : Ghanaian Is Patient Female and 13-50 no hysterectomy [...] : Chocolate, Soft drinks Frequency : Occasionally RIMA DURAN LPN - 02/18/2016 14:06 CDT Recreational Drug Use Grid Drug Use : None IRMA DURAN LPN - 02/18/2016 14:06 CDT Source: [facility] Geron Document Id: [id number] CDT!46 documented in this encounter Plan of Treatment Not on filedocumented as of this encounter Visit Diagnoses Not on filedocumented in this encounter
--- OUTSIDE RECORDS SUMMARY | 2022-02-01 12:00 | XMS_ITS | Encounter Summary ---
:1995 Author Organization [facility] [place] [address] Care Team Providers Name Role Phone Zaynab Roberts M.D. Primary Care Provider [phone] Encounter Details Date Type Department Care Team Description 04/05/2018 Hospital Encounter Department of Kelton Dotson eneralized Radiology in Zaynab maya [facility] [place]illaTiana M.D. [address] [facility] [address] [place], [place] [phone] [address] Social History Tobacco Use Types Packs/Day [...] Please inform Beatriz of normal ultrasound results. OARCHAEOLOGY PROFESSOR documented in this encounter Plan of Treatment Not on filedocumented as of this encounter Procedures Procedure Name Priority Date/Time Associated Comments Diagnosis US ABDOMEN RAD - Routine 04/05/2018 8:20 Pain Generalized Results for this COMPLETE (most inpatients AM ETHNOARCHAEOLOGY PROFESSOR Abdominal procedure a re in and all the results outpatients) section. documented in this encounter Results US Abdomen Complete (04/05/2018 8:20 AM ETHNOARCHAEOLOGY PROFESSOR) Anatomical Region Laterality Modality Abdomen, Ultrasound RST LOS, Ultrasound ARZ LOS, Ultrasound FLA N/A Ultrasound LOS Specimen (Source) Anatomical Collection Method Collection Time Re ceived Time Location / / Volume Laterality 04/05/2018 8:21 AM ETHNOARCHAEOLOGY PROFESSOR Impressions 04/05/2018 8:24 AM ETHNOARCHAEOLOGY PROFESSOR IMPRESSION: Negative. Narrative 04/05/2018 8:24 AM ETHNOARCHAEOLOGY PROFESSOR EXAM: US ABDOMEN COMPLETE COMPARISON: CT 04/11/11. [...] Abdominal documented in this encounter Care Teams Checkroom Chief Relationship Specialty Start Date End Date Zaynab Roberts M.D. PCP - General 10/16/16 06/13/[address] [address] documented as of this encounter
--- OUTSIDE RECORDS SUMMARY | 2022-02-01 12:00 | XMS_ITS | Encounter Summary ---
:1995 Author Organization [facility] [place] [address] Care Team Providers Name Role Phone Zaynab Roberts M.D. Primary Care Provider [phone] Encounter Details Date Type Department Care Team Description 08/31/2017 Orders Only Department of Family Norma Pre placement Exam Medicine, Zaynab Kulkarni, (Primary Dx) Clinic, in [place] [address] [address] [phone] Social History Tobacco Use Types Packs/Day Years [...] Organization Address City/State/ZIP Code Phon e Number [facility] [address] [place] [address] documented in this encounter Visit Diagnoses Diagnosis Preplacement Exam - Primary documented in this encounter Care Teams Bi Specialist Relationship Specialty Start Date End Date Zaynab Roberts M.D. PCP - General 10/16/16 06/13/[address] [place] [address] documented as of this encounter
--- OUTSIDE RECORDS SUMMARY | 2022-02-01 12:00 | XMS_ITS | Encounter Summary ---
:1995 Author Organization [facility] [place] [address] Care Team Providers Name Role Phone Unavailable Primary Care Provider Unavailable Encounter Details Date Type Department Care Team Description 04/04/2016 Hospital Encounter HX NO MAPPING Zaynab Roberts M.D. [address] [place], [place] [phone] (Wo rk) Social History Tobacco Use Types Packs/Day Years Used Date Smoking Tobacco: Never Assessed Sex Assigned at Date Recorded Female 07/27/2019 2:28 PM CDT documented as of this encounter Miscellaneous Notes Miscellaneous - Conversion, Historical Provider Ser - 04/04/2016 11:59 PM MEDICAL PAYMENT POSTER Coding Summary-Paper Based CODING DATE: 04/16/2016 FINAL [facility] STATUS: * Discharged to Home or Self [...] HALL Date Saved: 04/16/2016 10:13 am Source: [employer] Document Id: [id number] documented in this encounter Plan of Treatment Not on filedocumented as of this encounter Visit Diagnoses Not on filedocumented in this encounter
--- OUTSIDE RECORDS SUMMARY | 2022-02-01 12:00 | XMS_ITS | Encounter Summary ---
:1995 Author Organization [facility] [place] [address] Care Team Providers Name Role Phone Unavailable Primary Care Provider Unavailable Encounter Details Date Type Department Care Team Description 04/04/2016 Hospital Encounter HX FBCV FAMILYPRA Laura-Margarita Brooke M.D. [address] [place], [place] [phone] (Wo rk) Social History Tobacco Use Types Packs/Day Years Used Date Smoking Tobacco: Never Assessed Sex Assigned at Date Recorded Female 07/27/2019 2:28 PM CDT documented as of this encounter Last Filed Vital Signs Vital Sign Reading Time Taken Comments Blood Pressure 106/56 04/04/2016 1:12 PM ACCOUNT OFFICER Pulse 84 04/04/2016 1:12 PM ACCOUNT OFFICER Temperature - - Respiratory Rate 16 04/04/2016 1:12 PM ACCOUNT OFFICER Oxygen Saturation - - Inhaled Oxygen Concentration - - Weight 74.9 kg (165 lb 0.2 oz) 04/04/2016 1:12 PM ACCOUNT OFFICER Height 169 cm (5' 6.54) 04/04/2016 1:12 PM ACCOUNT OFFICER Body Mass Index 26.21 04/04/2016 1:12 PM ACCOUNT OFFICER documented in this encounter Miscellaneous Notes Miscellaneous - Margarita Skelton M.D. - 04/10/2016 5:28 PM ACCOUNT OFFICER Custom Result Letter April 10, 2016 CHANDRIKA ESQUEDA [address] [facility] [id number] Dear CHANDRIKA ESQUEDA, Your pap is normal. Result Name Current Result COMPONENT INSPECTOR Cytology. 04/04/2016 Chlamydia by Nucleic Acid Amplification 04/04/2016 Sincerely, MARGARITA TRUJILLO [address] [place] [address] Electronic Signature Electronically Signed By: MARGARITA SKELTON MD On: April 10, 2016 This document has images extracted. Source: [facility] [employer] Document Id: [id number] Electronically signed by Taryn [facility] Director [employer] [id number] at 09/28/2016 6:53 AM CDT Miscellaneous - Kelli Neumann, L.P.N. - 04/07/2016 11:49 AM CST PHQ-9 PHQ-9 Entered On: 04/07/2016 11:49 ACCOUNT OFFICER Performed On: 04/07/2016 11:49 ACCOUNT OFFICER by KELLI NEUMANN LPN PHQ-9 Little interest [...] 0 KELLI NEUMANN LPN - 04/07/2016 11:49 ACCOUNT OFFICER Source: [facility] [employer] Document Id: [id number] ACCOUNT OFFICER!12 UNT OFFICER Suricellshannon - Margarita Skelton M.D. - 04/05/2016 1:10 PM ACCOUNT OFFICER Ambulatory Discharge Medication List [address] [id number] Visit Information Name: LILLY CHANDRIKA PACHECO [facility] Number: [id number] Current Date: 04/05/2016 13:10:53 Attending [...] Visit with Primary Care Provider. Routed to [address] [address] Stop Taking the Following Medications: Medication list [...] MD Signed On:05-APR-2016 13:10:51 Additional Information: Source: [facility] POWERCHART Document Id: [id number] UNT OFFICER Miscellaneous - Margarita Skelton M.D. - 04/05/2016 1:10 PM ACCOUNT OFFICER Ambulatory Patient Summary [address] [id number] Visit Information Name: CHANDRIKA ESQUEDA JUNIOR [facility] Number: [id number] Current Date: 04/05/2016 13:10:53 Physicians [...] Visit with Primary Care Provider. [facility] [address] Stop Taking the Following Medications: Medication list [...] if you dont have one. Go to [email or web address] and click on Create Your Account. Then, follow the directions to complete the online form. Youll be asked for your [facility] number which you can find at the top of this document. Your Goals/Additional instructions: Source: [facility] POWERCHART Document Id: [id number] UNT OFFICER Miscellaneous - Hortensia Schmitz L.PJoshuaN. - 04/04/2016 1:12 PM CST Adult Pencil Maker Intake/History Adult Pencil Maker Intake/History Entered On: 04/04/2016 13:15 ACCOUNT OFFICER Performed On: 04/04/2016 13:12 ACCOUNT OFFICER by HORTENSIA SCHMITZ LPN Intake Chief Complaint [...] kg/m2 HORTENSIA SCHMITZ LPN - 04/04/2016 13:12 ACCOUNT OFFICER General Info Information Given By : Patient Preferred Communication Mode : Verbal, Written Languages : Bahamian Is Patient Female and 13-50 no hysterectomy : Yes Status : Patient denies Are you ? : No HORTENSIA SCHMITZ LPN - 04/04/2016 13:12 ACCOUNT OFFICER Subjective Pain Symptoms : No HORTENSIA SCHMITZ LPN - 04/04/2016 13:12 ACCOUNT OFFICER Dependent Habits Exposure to Tobacco Smoke : Other: Never Smoking Status : Never smoker Tobacco 2A : No Tobacco Use/Currently Using : No Tobacco Use/Last 30 Days : No Tobacco Use/Last 12 months : No HORTENSIA SCHMITZ LPN - 04/04/2016 13:12 ACCOUNT OFFICER Caffeine Use Grid Caffeine Use : Current Type : Chocolate, Soft drinks Frequency : Occasionally HORTENSIA SCHMITZ LPN - 04/04/2016 13:12 ACCOUNT OFFICER Recreational Drug Use Grid Drug Use : None HORTENSIA SCHMITZ LPN - 04/04/2016 13:12 ACCOUNT OFFICER Source: [facility] POWERCHART Document Id: [id number] ACCOUNT OFFICER!40 UNT OFFICER documented in this encounter Plan of Treatment Not on filedocumented as of this encounter Procedures Procedure Name Priority Date/Time Associated Comments Diagnosis CHLAMYDIA TRACHOMATIS Routine 04/04/2016 1:58 PM Results for this AMPLIFIED RNA ACCOUNT OFFICER procedure are in the results section. PATHOLOGY COMPONENT INSPECTOR Routine 04/04/2016 12:00 Results fo r this CYTOLOGY AM ACCOUNT OFFICER procedure are i n the results section. documented in this encounter Results Chlamydia Trachomatis Amplified RNA (04/04/2016 1:58 PM ACCOUNT OFFICER) Component Value Ref Test Analysis Performed At [facility] gist Range Method Time Signature HXChlamydia by POWERCHART Nucleic Acid Amplification HXFinal There is no POWERCHART standard reference or commercial method for obtaining sensitivity results for this organism. HXAmend Negative for POWERCHART Chlamydia trachomatis by RNA amlifiaction HXAmend Reference: POWERCHART Negative Specimen (Source) Anatomical Collection Method Collection Time Re ceived Time Location / / Volume Laterality Cervix/Endocervix 04/04/2016 1:58 PM ACCOUNT OFFICER Margarita Roberts M.D. LAB MICROBIOLOGY - GEN ERAL ORDERABLES Performing Organization Address City/[facility]/ZIP Code Phon e Number POWERCHART Pathology COMPONENT INSPECTOR Cytology (04/04/2016 12:00 AM ACCOUNT OFFICER) Specimen (Source) Anatomical Location Collection Method / Collectio n Time Received Time / Laterality Volume 04/04/2016 Narrative [facility] LAB - 04/09/2016 12:26 PM ACCOUNT OFFICER [facility] [address] [facility] [address] [place], [place] ??[address] Patient Name: CHANDRIKA ESQUEDA Patient ID #: [id number] Collected: 04/04/2016 Address: [facility]/State/Zip: [address] [place], [place] ??[id number] Received: Reported: 04/07/2016 04/09/2016 Soc. Sec. #: ?/Age/Sex 1995 (Age: 21) ??F Physician(s): CORIN TRUJILLO MD Copy To: ? [facility] ??[id number] [address] [facility], ??[place] ??[address] CYTOPATHOLOGY COMPONENT INSPECTOR REPORT FINAL CYTOLOGIC DIAGNOSIS Pap Smear VCE [...]
--- OUTSIDE RECORDS SUMMARY | 2022-02-01 12:00 | XMS_ITS | Encounter Summary ---
:1995 Author Organization [facility] [place] [address] Care Team Providers Name Role Phone Unavailable Primary Care Provider Unavailable Encounter Details Date Type Department Care Team Description 09/05/2016 Hospital Encounter HX [facility] OWOC DERM Ishan Moore M.D. [address] [facility], [address] [place], [place] [address] (Wo rk) Social History Tobacco Use Types [...] in 1 year Ordered: Dermatopathology Consult, Wet Tissue-[place] 4339 Electronically Signed By: JANE MOORE MD On: 09/05/2016 04:00 PM Source: [employer] Document Id: [id number] documented in this encounter Miscellaneous Notes Miscellaneous [...] return phone call and also [facility] portal Addendum by HARIS GARZA LPN on September 15, 2016 08:14:44 CDT From: HARIS GARZA LPN (STEPHANI Sanchez Nurse) To: CHANDRIKA ESQUEDA Sent: 09/15/2016 08:14:44 CDT Subject: FW: From: MARGARITA SKELTON MD To: STEPHANI Sanchez Nurse; Sent: 09/14/2016 20:30:18 CDT Please inform Chandrika that the skin lesions were not worrisome. Source: [facility] POWERCHART Document Id: [id number] Miscellaneous - Jane Moore M.D. - 09/05/2016 4:00 PM CDT Ambulatory Patient Summary [facility] [address] [place] [address] [id number] Visit Information Name: CHANDRIKA ESQUEDA [facility] Number: [id number] Current Date: 09/05/2016 16:00:33 [...] if you dont have one. Go to [email or web address] and click on Create Your Account. Then, follow the directions to complete the online form. Youll be asked for your [facility] number which you can find at the top of this document. Your Goals/Additional instructions: Source: [facility] POWERCHART Document Id: [id number] Miscellaneous - Jane Moore M.D. - 09/05/2016 4:00 PM CDT Ambulatory Discharge Medication List [address] [id number] Visit Information Name: CHANDRIKA ESQUEDA [facility] Number: [id number] Current Date: 09/05/2016 16:00:32 [...] MD Signed On:05-SEP-2016 16:00:30 Additional Information: Source: [facility] [employer] Document Id: [id number] Miscellaneous - Hollie Álvarez L.P.N. - 09/05/2016 2:44 PM CDT Adult Safety And Security Manager Intake/History Adult Safety And Security Manager Intake/History Entered On: 09/05/2016 14:45 CDT Performed On: 09/05/2016 14:44 CDT by HOLLIE ÁLVAREZ LPN Intake Chief Complaint : check some moles on the scalp and some on the abdomen Height : 169 cm(Converted to: 5 ft 7 inch(es), 67 inch(es)) HOLLIE ÁLVAREZ LPN - 09/05/2016 14:44 CDT General Info Languages : Serbian Is Patient Female and 13-50 no hysterectomy [...] ÁLVAREZ LPN - 09/05/2016 14:44 CDT Source: [facility] [employer] Document Id: [id number] CDT!26 documented in this encounter Plan of [...] (09/05/2016 4:46 PM CDT) [facility] Signature [facility]: Test Performed by: [facility] [address] [place] [address] Specimen Anatomical Collection Method Collection Time Receive d Time (Source) Location / / Volume Laterality Tissue 09/05/2016 4:46 PM 7 1:33 CDT PM CDT Historical Provider [facility] Performing Organization Address City/State/ZIP Code Phon e Number POWERCHART PATHOLOGY DERMPATH CONSULT, WET TISSUE (09/05/2016 4:46 PM CDT) [facility] Method Time Signature HXDrm Exam [id number] POWERCHART [facility] HXDrm Exam See Comment POWERCHART [facility] Comment: RESULT: Jane Moore M.D. HXDrm Exam [facility] See Comment POWERCH ART Comment: [facility] [address] [place] [phone] HXDrm Exam [facility] See Comment POWERCH ART Comment: A. ??DermPath Consultation, Wet Tissue; right chest: B. ??DermPath Consultation, Wet Tissue; right thigh: HXDrm Exam [facility] [place] See Comment POWERCH ART Comment: A. ??Received [...] submitted entirely in cassette B1. HXDrm Exam [facility] See Comment POWERCH ART Comment: A. ??DermPath Consultation, Wet Tissue; right chest: ??Lentiginous junctional nevus B. ??DermPath Consultation, Wet Tissue; right thigh: ??Lentiginous compound nevus HXDrm Exam [facility] See Comment POWERCH ART Comment: RESULT: 09/10/2016 14:24 ??Interpreted by : Veronica Rios M.D Report electronically signed by Veronica Rios M.D. Transcribed by: [email or web address] 09/10/2016 14:04:16 Test Performed by: [address] [address] Specimen (Source) Anatomical Collection Method Collection Time Re ceived Time Location / / Volume Laterality Tissue 09/05/2016 4:46 PM CDT Jane Moore M.D. LAB PATH DERM ORDERABLES Performing Organization Address City/State/[facility] Code Phon e Number POWERCHART documented in this encounter Visit Diagnoses Not on filedocumented in this encounter
--- OUTSIDE RECORDS SUMMARY | 2022-02-01 12:00 | XMS_ITS | Encounter Summary ---
:1995 Author Organization [facility] [place] [address] Care Team Providers Name Role Phone Zaynab Roberts M.D. Primary Care Provider [phone] Encounter Details Date Type Department Care Team Description 07/20/2019 Refill Department of Family Medicine, Rohan Villafana [facility], in Zaynab Madrigal M.D. [place] [address] [place] [address] [place] [address] [phone] Social History Tobacco Use Types Packs/Day Years [...] on filedocumented in this encounter Care Teams Associate Store Director Relationship Specialty Start Date End Date Zaynab Roberts M.D. PCP - General 10/16/16 06/13/20[facility] [place] [phone] documented as of this encounter
--- OUTSIDE RECORDS SUMMARY | 2022-02-01 12:00 | XMS_ITS | Encounter Summary ---
:1995 Author Organization [facility] [place] [address] Care Team Providers Name Role Phone Unavailable Primary Care Provider Unavailable Encounter Details Date Type Department Care Team Description 08/04/2016 Hospital Encounter HX [facility] FBCV INTERNMED Flores Muñiz M.D. [address] [facility] [address] [place] [address] Social History Tobacco Use Types Packs/Day [...] Muñiz M.D. - 08/04/2016 4:31 PM CDT [id number] CHIEF COMPLAINT/REASON FOR VISIT Sinus infection. HISTORY [...] behalf by Silviano Laguerre, a trained medical accountant. The creation of this record is based on the scribe's personal observations and the provider's statements to them. This document has been checked and approved by the attending provider. Flores Muñiz M.D./mariela Electronically Signed By: FLORES MUÑIZ MD On: 08/07/2016 12:42 PM Modified by and Electronically Signed by: FLORES MUÑIZ MD On: 08/07/2016 12:42 PM Source: [facility] MHSDOLBEYNONRADSYS Document Id: [id number] documented in this encounter Miscellaneous Notes Miscellaneous - Flores Muñiz M.D. - 08/04/2016 4:56 PM CDT Ambulatory Patient Summary [address] [id number] Visit Information Name: LILLYRITESHISABEL PACHECO [facility] Number: [id number] Current Date: 08/04/2016 16:56:51 Physicians [...] day x 10 day(s) New Routed to [address] [address] desogestrel-ethinyl estradiol (Desogen 0.15 mg-0.03 mg oral [...] if you dont have one. Go to [email or web address] and click on Create Your Account. Then, follow the directions to complete the online form. Youll be asked for your [facility] number which you can find at the top of this document. Your Goals/Additional instructions: Source: [facility] POWERCHART Document Id: [id number] Miscellaneous - Flores Muñiz M.D. - 08/04/2016 4:56 PM CDT Ambulatory Discharge Medication List [address] [id number] Visit Information Name: CHANDRIKA ESQUEDA [facility] Number: [id number] Current Date: 08/04/2016 16:56:51 Attending Provider: FLORES MUÑIZ MD Primary Care Provider: MARGARITA APLAFOX MD CHANDRIKA ESQUEDA has been given the [...] day x 10 day(s) New Routed to [address] [id number] desogestrel-ethinyl estradiol (Desogen 0.15 mg-0.03 mg oral [...] MD Signed On:04-AUG-2016 16:56:44 Additional Information: Source: [facility] POWERCHART Document Id: [id number] Miscellaneous - Shraddha Machado C.M.A. - 08/04/2016 4:41 PM CDT Adult Client Program Manager Intake/History Adult Client Program Manager Intake/History Entered On: 08/04/2016 16:42 CDT Performed On: 08/04/2016 16:41 CDT by SHRADDHA MACHADO [facility] Intake Chief Complaint : 1: sinus infection [...] Information Given By : Patient Languages : Montenegrin Is Patient Female and 13-50 no hysterectomy [...] Grid Drug Use : None SHRADDHA MACHADO [facility] - 08/04/2016 16:41 CDT Source: [facility] [employer] Document Id: [id number] CDT!44 Miscellaneous - Shraddha Machado C.M.AJoshua - 08/04/2016 4:40 PM CDT Health Assessment Health Assessment Entered On: 08/04/2016 16:40 CDT Performed On: 08/04/2016 16:40 CDT by SHRADDHA MACHADO [facility] Health Assessment Complete Health Assessment Complete or Modified : Annual Health Assessment Annual Health Assessment Completed : Yes SHRADDHA MACHADO [facility] - 08/04/2016 16:40 CDT Nutrition Nutrition Risk Factors by History Adult : None SHRADDHA MACHADO [facility] - 08/04/2016 16:40 CDT Functional Current Daily Living Assistance : None SHRADDHA MACHADO [facility] - 08/04/2016 16:40 CDT Dependent Habits Exposure to Tobacco Smoke : Other: Never Smoking Status : Never smoker Tobacco 2A : No Tobacco Use/Currently Using : No Tobacco Use/Last 30 Days : No Tobacco Use/Last 12 months : No Alcohol Use : No SHRADDHA MACHADO [facility] 08/04/2016 16:40 CDT Caffeine Use Grid Caffeine Use : Current Type : Chocolate, Soft drinks Frequency : Occasionally SHRADDHA MACHADO [facility] - 08/04/2016 16:40 CDT Recreational Drug Use Grid Drug Use : None SHRADDHA MACHADO [facility] 08/04/2016 16:40 CDT Psychosocial Domestic Abuse Concerns : None Behavioral Health Screen/Safety Assmt : Unable to obtain Yarsanism Preference : Unknown SHRADDHA MACHADO [facility] 08/04/2016 16:40 CDT Advance Directive Advanced Directives : No Advance Directive Additional Information : No SHRADDHA MACHADO [facility] 08/04/2016 16:40 CDT Educ Needs Learning Style Preference Adult Grid Patient : None, Demonstration, Printed materials, Verbal explanation Family : None, Demonstration, Printed materials, Verbal explanation SHRADDHA MACHADO [facility] - 08/04/2016 16:40 CDT Source: [facility] [employer] Document Id: [id number] CDT!35 documented in this encounter Plan of Treatment Not on filedocumented as of this encounter Visit Diagnoses Not on filedocumented in this encounter
--- OUTSIDE RECORDS SUMMARY | 2022-02-01 12:00 | XMS_ITS | Encounter Summary ---
:1995 Author Organization [facility] [place] [address] Care Team Providers Name Role Phone Zaynab Roberts M.D. Primary Care Provider [phone] Encounter Details Date Type Department Care Team Description 07/27/2019 Orders Only Department of [facility] William , [facility] [address] [place] [phone] (Wo rk) Social History Tobacco Use Types [...] on filedocumented in this encounter Care Teams Superintendent Power Relationship Specialty Start Date End Date Zaynab Roberts M.D. PCP - General 10/16/16 06/13/20 [address] [facility] [place] [phone] documented as of this encounter
--- OUTSIDE RECORDS SUMMARY | 2022-02-01 12:00 | XMS_ITS | Encounter Summary ---
:1995 Author Organization [facility] Address [address] [place] [address] Care Team Providers Name Role Phone Jake Villegas M.D. Primary Care Provider Reason for Visit Reason Comments COVID Inquiry Encounter Details Date Type Department Care Team Description 07/24/2020 Clinical Communication Central Appointment MARTHA Brown Office in [address] [address] Social History Tobacco Use Types Packs/Day Years [...] LABORATORY CONFIRMED case ofCOVID-19?: Yes exposure noted. [place] patient, instruct to quarantine, testing indicated (End Screening) Testing Recommendation Endpoint Is testing recommended? : Recommended to test Plan: Endpoint recommendation: Testing indicated, advised to be swabbed for COVID-19 Only , sent to [facility] located at [address] [place] [address]. The entrance is on the north side of the building. You must call [phone] during the hours of 7am to 6 [...] sending patient for testing in [facility], route encounter to the correct testing pool. documented in this encounter Plan of Treatment Not on filedocumented as of this encounter Visit Diagnoses Not on filedocumented in this encounter Care Teams Dog Walker Relationship Specialty Start Date End Date Jake Villegas M.D. PCP - General 06/14/[address] [place] [address] A[place]STASIA Rice [phone] documented as of this encounter
--- OUTSIDE RECORDS SUMMARY | 2022-02-01 12:00 | XMS_ITS | Encounter Summary ---
:1995 Author Organization [facility] [place] [address] Care Team Providers Name Role Phone Zaynab Roberts M.D. Primary Care Provider [phone] Reason for Referral Outpatient (Routine) - Closed Specialty Diagnoses / Procedures Referred By Contact Refer red To Contact Ophthalmology Stephen Jimenez Jr., M.D. [facility] [address] [place] [address] Referral ID Status Reason Start Date Expiration Date Visits Requ ested Visits Authorized [id number] Closed 10/08/2017 10/08/2018 1 1 Reason for Visit Reason Comments Eye Exam Appointment Request (Routine) - Closed Specialty Diagnoses / Procedures Referred By Contact Refer red To Contact Ophthalmology Referral ID Status Reason Start Date Expiration Date Visits Requ ested Visits Authorized [id number] Closed 09/21/2017 03/20/2018 1 1 Encounter Details Date Type Department Care Team Description 10/08/2017 Comprehensive Visit Department of Stephen Jimenez Vitreous Ophthalmology brayan Chamberlain Jr., M.D. Bilateral (Primary [place], [place] [address] Dx) [address] [place] [phone] Social History Tobacco Use Types Packs/Day Years [...] Primary documented in this encounter Care Teams Scaffolding Helper Relationship Specialty Start Date End Date Zaynab Roberts M.D. PCP - General 10/16/16 06/13/[address] [phone] documented as of this encounter
--- OUTSIDE RECORDS SUMMARY | 2022-02-01 12:00 | XMS_ITS | Encounter Summary ---
:1995 Author Organization [facility] [place] [address] Care Team Providers Name Role Phone Zaynab Roberts M.D. Primary Care Provider [phone] Reason for Visit Reason Comments Earache left ear pain x 48 hours Appointment Request (Routine) - Closed Specialty Diagnoses / Procedures Referred By Contact Refer red To Contact [facility] Referral ID Status Reason Start Date Expiration Date Visits Requ ested Visits Authorized [id number] Closed 10/05/2017 10/05/2018 1 1 Encounter Details Date Type Department Care Team Description 10/06/2017 Office Visit Department of [facility] Norma Kay tis Externa Acute Medicine, Zaynab Kulkarni Bilatera l (Primary Dx) Clinic, in Kervin Madrigal [place] [address] [place] [phone] Social History Tobacco Use Types Packs/Day Years [...] behalf by Hyacinth Moreno, a trained medical customer service representative. The creation of this record is based on the scribe's personal observations and the provider's statements to them. This document has been ch ecked and approved by the attending provider. documented in this encounter Plan of Treatment Not on filedocumented as of this encounter Visit Diagnoses Diagnosis Otitis Externa Acute Bilateral - Primary documented in this encounter Care Teams Head Men'S Tennis Coach Relationship Specialty Start Date End Date Zaynab Roberts M.D. PCP - General 10/16/16 06/13/[address] [phone] documented as of this encounter
--- OUTSIDE RECORDS SUMMARY | 2022-02-01 12:00 | XMS_ITS | Encounter Summary ---
:1995 Author Organization [facility] [place] [address] Care Team Providers Name Role Phone Zaynab Roberts M.D. Primary Care Provider [phone] Encounter Details Date Type Department Care Team Description 04/09/2020 Patient Self-Triage [facility] Symptom Orthopedic Radiologic Technologist, Provider Social History Tobacco Use Types Packs/Day [...] on filedocumented in this encounter Care Teams Signals Collection Technician Relationship Specialty Start Date End Date Zaynab Roberts M.D. PCP - General 10/16/16 06/13/20 [address] [place] [address] documented as of this encounter
--- OUTSIDE RECORDS SUMMARY | 2022-02-01 12:00 | XMS_ITS | Encounter Summary ---
:[address] [facility] [address] Care Team Providers Name Role Phone Zaynab Roberts M.D. Primary Care Provider [phone] Encounter Details Date Type Department Care Team Description 09/07/2017 Nurse Only Department of Family Rabia Null, Medicine, [facility] in [facility] ankush [address] [place] [address] [place] [address] Social History Tobacco Use Types Packs/Day [...] P athologist Signature TB Skin Test 0 [facility] Induration 0 mm [facility] Specimen (Source) Anatomical Collection Method Collection Time Re ceived Time Location / / Volume Laterality Other, Specify in 09/09/2017 9:08 AM Comments CDT Zaynab Roberts M.D. IMMUNIZATION ORDERABLE S Performing Organization Address City/State/ZIP Code Phon e Number [facility] [address] [place] [address] documented in this encounter Visit Diagnoses Diagnosis Preplacement Exam documented in this encounter Care Teams Postal Transportation Clerk Relationship Specialty Start Date End Date Zaynab Roberts M.D. PCP - General 10/16/16 06/13/20 [address], [place] [address] documented as of this encounter
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
--- OUTSIDE RECORDS SUMMARY | 2022-02-01 12:00 | XMS_ITS | Encounter Summary ---
:1995 Author Organization [facility] Address [address] [place] [address] Care Team Providers Name Role Phone Jake Villegas M.D. Primary Care Provider Reason for Visit Reason Onset Date Comments Outpatient COVID-19 Testing 07/24/2020 Encounter Details Date Type Department Care Team Description 07/24/2020 External Outreach Department of Family [place] Contact With And Medicine, [facility] Fazal Steve D.O. (Suspected) Exposure Building, in [address] To COVID-19 (Primary [place], [place] Dx) [address] [facility] [address] [place], [place] [phone] [address] (Work) [phone] Social History Tobacco Use Types Packs/Day Years [...] managing the patient, they may call the [facility] Covid Care Team Doc of the Day, send an inbasket to [facility] COVID-19 POSITIVE, or place a Covid Care [...] RNA, V Asymptomatic (07/24/2020 11:20 AM CDT) [facility] Method Time Signature SARS-CoV-2 Swab, 07/25/2020 [facility] Specimen Nasopharynx 4:38 AM CDT Source SARS CoV-2 Detected (A) Undetected 07/25/2020 [facility] RNA, TMA 4:38 AM CDT Comment: SARS-CoV-2 RNA present. ----ADDITIONAL INFORMATION---- This molecular amplification test was pe rformed using the Aptima SARS-CoV-2 assay ([employer] on the Thumbs Ups tem under emergency use authorization (EUA) by the U.S. Food and Drug Administ ration. Fact sheets for this EUA assay can be fo und at the following links: For Healthcare Providers: https://www.[employer] a.gov/media/789642/download For Patients: https://www.fda.gov/media/ 229316/download Specimen Anatomical Collection Method Collection Time Receive d Time (Source) Location / / Volume Laterality Varies 07/24/2020 11:20 07/24/2020 7:00 (Nasopharynx) AM CDT PM CDT Wily Driver D.O. LAB MICROBIOLOGY - GENERAL O RDERABLES Performing Organization Address City/State/ZIP Code Phon e Number [facility] [address] [place] [address] [facility] [place] [address] System in [place] [address] [place] [address] documented in this encounter Visit Diagnoses Diagnosis Contact With And (Suspected) Exposure To COVID-19 - Primary documented in this encounter Additional Health Concerns Infection Onset Date Last Indicated Resolved Time COVID19 Pending 07/24/2020 07/24/2020 07/25/2020 4:38 AM CDT documented as of this encounter Care Teams Pharmacy Assistant Relationship Specialty Start Date End Date Jake Villegas M.D. PCP - General 06/14/[address] [place] [phone] documented as of this encounter
--- OUTSIDE RECORDS SUMMARY | 2022-02-01 12:00 | XMS_ITS | Encounter Summary ---
:1995 Author Organization [facility] [place] [address] Care Team Providers Name Role Phone Zaynab Roberts M.D. Primary Care Provider [phone] Reason for Visit Reason Comments Other Stomach issues- pain, loose stools. Passed out the other day in the bath room, vomited Appointment Request (Routine) - Closed Specialty Diagnoses / Procedures Referred By Contact Refer red To Contact Family Medicine Referral ID Status Reason Start Date Expiration Date Visits Requ ested Visits Authorized [id number] Closed 03/19/2018 03/19/2019 1 1 Encounter Details Date Type Department Care Team Description 03/29/2018 Office Visit Department of [facility] Norma barraza [facility], Zaynab Kulkarni Abdomina l (Primary Dx) Clinic, in [place] [address] [phone] Social History Tobacco Use Types Packs/Day [...] Comments Blood Pressure 118/60 03/29/2018 2:00 PM BIOMASS POWER PLANT SUPERINTENDENT Pulse 76 03/29/2018 2:00 PM BIOMASS POWER PLANT SUPERINTENDENT Temperature 37 ??C (98.6 ??F) 03/29/2018 2:00 PM BIOMASS POWER PLANT SUPERINTENDENT Respiratory Rate 16 03/29/2018 2:00 PM BIOMASS POWER PLANT SUPERINTENDENT Oxygen Saturation - - Inhaled Oxygen Concentration - - Weight 79.1 kg (174 lb 6.1 oz) 03/29/2018 2:00 PM BIOMASS POWER PLANT SUPERINTENDENT Height 171 cm (5' 7.32) 03/29/2018 2:00 PM BIOMASS POWER PLANT SUPERINTENDENT Body Mass Index 27.05 03/29/2018 2:00 PM BIOMASS POWER PLANT SUPERINTENDENT documented in this encounter Progress Notes Zaynab [...] behalf by Hyacinth Moreno, a trained medical screener. The creation of this record is based on the scribe's personal observations and the provider's statements to them. This document has been ch ecked and approved by the attending provider. ASS POWER PLANT SUPERINTENDENT documented in this encounter Plan of Treatment Not on filedocumented as of this encounter Results US Abdomen Complete (04/05/2018 8:20 AM BIOMASS POWER PLANT SUPERINTENDENT) Anatomical Region Laterality Modality Abdomen, Ultrasound RST LOS, Ultrasound ARZ LOS, Ultrasound FLA N/A Ultrasound LOS Specimen (Source) Anatomical Collection Method Collection Time Re ceived Time Location / / Volume Laterality 04/05/2018 8:21 AM BIOMASS POWER PLANT SUPERINTENDENT Impressions 04/05/2018 8:24 AM BIOMASS POWER PLANT SUPERINTENDENT IMPRESSION: Negative. Narrative 04/05/2018 8:24 AM BIOMASS POWER PLANT SUPERINTENDENT EXAM: US ABDOMEN COMPLETE COMPARISON: CT 04/11/11. [...] Abdominal documented in this encounter Care Teams Sap Hana Developer Relationship Specialty Start Date End Date Zaynab Roberts M.D. PCP - General 10/16/16 06/13/[address] [address] documented as of this encounter
--- OUTSIDE RECORDS SUMMARY | 2022-02-01 12:00 | XMS_ITS | Encounter Summary ---
:1995 Author Organization [facility] Address [address] [place] [address] Care Team Providers Name Role Phone Zaynab Roberts M.D. Primary Care Provider [phone] Encounter Details Date Type Department Care Team Description 09/24/2018 Nurse Triage Department of [facility] Trinidad Nelson R.N. Medicine, [facility], in [address] [place], [place] [address] [place] [address] [place] [address] [phone] Social History Tobacco Use Types Packs/Day Years [...] Signature Strep Group A, Collected DEFAULT 09/24/2018 [facility] PCR, POCT 10:48 AM CDT [facility] LAB Specimen Anatomical Collection Method Collection Time Receive d Time (Source) Location / / Volume Laterality Varies (Throat) 09/24/2018 10:47 09/25/19 19 AM CDT 10:48 AM CDT Zaynab Roberts M.D. LAB POCT ORDERABLES - DEVICE Performing Organization Address City/State/ZIP Code Phon e Number [facility] [address] [place] [address] LAB documented in this encounter Visit Diagnoses Diagnosis Sore Throat - Primary documented in this encounter Care Teams Supervisor Weaving Relationship Specialty Start Date End Date Zaynab Roberts M.D. PCP - General 10/16/16 06/13/[address] [place] [address] documented as of this encounter
--- OUTSIDE RECORDS SUMMARY | 2022-02-01 12:00 | XMS_ITS | Encounter Summary ---
:1995 Author Organization [facility] [place] [address] Care Team Providers Name Role Phone Zaynab Roberts M.D. Primary Care Provider [phone] Reason for Visit Reason Comments Eye Exam Outpatient (Routine) - Closed Specialty Diagnoses / Procedures Referred By Contact Refer red To Contact Ophthalmology Stephen Jimenez Jr., M.D. [facility] [address] [place] [address] Referral ID Status Reason Start Date Expiration Date Visits Requ ested Visits Authorized [id number] Closed 10/08/2017 10/08/2018 1 1 Encounter Details Date Type Department Care Team Description 12/06/2018 Comprehensive Visit Department of Stephen Jimenez Vision Examination Ophthalmology brayan Chamberlain Jr., M.D. Normal (Primary Dx) [place], [place] [address] [phone] Social History Tobacco Use Types Packs/Day Years [...] Primary documented in this encounter Care Teams Key Entry Operator Relationship Specialty Start Date End Date Zaynab Roberts M.D. PCP - General 10/16/16 06/13/20 [address], [place] [phone] documented as of this encounter
--- OUTSIDE RECORDS SUMMARY | 2022-02-01 12:00 | XMS_ITS | Encounter Summary ---
:1995 Author Organization [facility] Address [address] [place] [address] Care Team Providers Name Role Phone Zaynab Roberts M.D. Primary Care Provider Encounter Details Date Type Department Care Team Description 06/05/2017 Nurse Triage Department of [facility] Radha Arellano , Medicine, [facility], R.N in [place], [place] [address] [facility] [address] [place] [address] [place] [address] [phone] Social History Tobacco Use Types Packs/Day Years [...] on filedocumented in this encounter Care Teams Ceo And Co Founder Relationship Specialty Start Date End Date Zaynab Roberts M.D. PCP - General 10/16/16 06/13/20 [address] [place] [phone] documented as of this encounter
--- OUTSIDE RECORDS SUMMARY | 2022-02-01 12:00 | XMS_ITS | Encounter Summary ---
:1995 Author Organization [facility] [place] [address] Care Team Providers Name Role Phone Zaynab Roberts M.D. Primary Care Provider [phone] Encounter Details Date Type Department Care Team Description 10/06/2017 Clinical [facility] [place] [address] [address] [phone] Social History Tobacco Use Types Packs/Day Years [...] filedocumented in this encounter Care Teams Associate Director Of Nursing Relationship Specialty Start Date End Date Zaynab Roberts M.D. PCP - General 10/16/16 06/13/20 [address], [place] [address] documented as of this encounter
--- OUTSIDE RECORDS SUMMARY | 2022-02-01 12:01 | XMS_ITS | Encounter Summary ---
:1995 Author Organization [facility] [place] [address] Care Team Providers Name Role Phone Unavailable Primary Care Provider Unavailable Encounter Details Date Type Department Care Team Description 04/05/2015 Hospital Encounter HX [facility] FB INTERNMED Jaycob Sood M.D. [address] [place] [address] [phone] (Wo rk) Social History Tobacco Use Types Packs/Day Years Used Date Smoking Tobacco: Never Assessed Sex Assigned at Date Recorded Female 07/27/2019 2:28 PM CDT documented as of this encounter Last Filed Vital Signs Vital Sign Reading Time Taken Comments Blood Pressure 118/72 04/05/2015 3:58 PM STEWARD/STEWARDESS SECOND CLASS Pulse 100 04/05/2015 3:58 PM STEWARD/STEWARDESS SECOND CLASS Temperature - - Respiratory Rate - - Oxygen Saturation - - Inhaled Oxygen Concentration - - Weight 71 kg (156 lb 8.4 oz) 04/05/2015 3:58 PM STEWARD/STEWARDESS SECOND CLASS Height 173 cm (5' 8.11) 04/05/2015 3:58 PM STEWARD/STEWARDESS SECOND CLASS Body Mass Index 23.72 04/05/2015 3:58 PM STEWARD/STEWARDESS SECOND CLASS documented in this encounter Progress Notes Frankie Sood M.D. - 04/05/2015 3:50 PM CST [id number] Chandrika was here yesterday. CHIEF COMPLAINT/REASON FOR [...] to look at options here in the [facility] or in the [facility] or at [facility] to get that done with a priority. Frankie Sood M.D./colin Electronically Signed By: FRANKIE SOOD MD On: 04/08/2015 04:41 PM Source: [facility] MHSDOLBEYNONRADSYS Document Id: [id number] ARD/STEWARDESS SECOND CLASS documented in this encounter Nursing Notes Shahida Arreola L.PJoshuaN. - 04/05/2015 4:37 PM CST ultrasound Patient sheduled for RUQU at [facility] 04/07/15 at 1:30pm Electronically Signed By: SHAHIDA ARREOLA LPN On: 04/05/2015 04:39 PM Source: [facility] POWERCHART Document Id: [id number] ARD/STEWARDESS SECOND CLASS documented in this encounter Miscellaneous Notes Miscellaneous - Frankie Sood M.D. - 04/08/2015 4:44 PM CST Results Notification From: FRANKIE SOOD MD To: STEPHANI Sood Nurse; Sent: 04/08/2015 16:44:47 STEWARD/STEWARDESS SECOND CLASS ! Show up: 04/08/2015 16:44:47 STEWARD/STEWARDESS SECOND CLASS Subject: Results Notification Actions: Notify patient of [...] Direct <0.20 mg/dL ( - <=0.30) Source: [facility] POWERCHART Document Id: [id number] Electronically signed by Conversion, [facility] Director Process Improvement [id number] at 09/29/2016 5:20 PM CDT Miscellaneous - Flores Muñiz M.D. - 04/06/2015 3:17 PM CST Test result from 04/05/2015 & RUQ ultrasound 04/06/2015 Document Contains Addenda Addendum by EDITH HAGAN LPN on 06 April 2015 15:33:28 STEWARD/STEWARDESS SECOND CLASS Patient notified. From: FLORES MUÑIZ MD To: STEPHANI Muñiz Nurse; Cc: FRANKIE SOOD MD; Sent: 04/06/2015 15:17:12 STEWARD/STEWARDESS SECOND CLASS Subject: Test result from 04/05/2015 & RUQ [...] and aorta. Impression: Unremarkable RUQ ultrasound. Source: [facility] POWERCHART Document Id: [id number] Electronically signed by Taryn, [facility] Director Process Improvement [id number] at 09/29/2016 5:20 PM CDT Miscellaneous - Frankie Sood M.D. - 04/05/2015 4:14 PM CST Ambulatory Patient Summary [address] [id number] Visit Information Name: CHANDRIKA ESQUEDA [facility] Number: [id number] Current Date: 04/05/2015 16:14:21 Physicians [...] Active 02/15/2011 06/02/11 fructose / per [facility] Allergic reaction to drug, not elsewhere classified [...] arm, back, neck or jaw pain ?? [phone], [place] [address]. All rights reserved. This information is not [...] if you dont have one. Go to [email or web address] and click on Create Your Account. Then, follow the directions to complete the online form. Youll be asked for your [facility] number which you can find at the top of this document. Your Goals/Additional instructions: Source: [facility] POWERCHART Document Id: [id number] ARD/STEWARDESS SECOND CLASS Miscellaneous - Frankie Sood M.D. - 04/05/2015 4:14 PM CST Ambulatory Discharge Medication List [address] [id number] Visit Information Name: CHANDRIKA ESQUEDA [facility] Number: [id number] Visit Date: 04/05/2015 16:14:20 Attending Provider: FRANKIE OSOD MD Primary Care Provider: MARGARITA PALAFOX MD [...] MD Signed On:05-APR-2015 16:13:42 Additional Information: Source: [facility] POWERCHART Document Id: [id number] ARD/STEWARDESS SECOND CLASS Miscellaneous - Shahida Arreola LJoshuaPJoshuaN. - 04/05/2015 3:58 PM CST Adult Oracle Database Consultant Intake/History Adult Oracle Database Consultant Intake/History Entered On: 04/05/2015 16:01 STEWARD/STEWARDESS SECOND CLASS Performed On: 04/05/2015 15:58 STEWARD/STEWARDESS SECOND CLASS by SHAHIDA ARREOLA LPN Intake Chief Complaint [...] Index : 23.72 kg/m2 ARREOLAURIEL ARCHIBALDMALLORY [facility]AKER [facility] - 04/05/2015 15:58 STEWARD/STEWARDESS SECOND CLASS General Info Information Given By : Patient Languages : Indian Is Patient Female and 13-50 no hysterectomy : Yes Status : Patient denies Are you ? : No JOSESITO SHAHIDA OLIVIA TREAD BOOKER - 04/05/2015 15:58 STEWARD/STEWARDESS SECOND CLASS Subjective Pain Symptoms : No JOSESITO SHAHIDAMALLORY BAKER TREAD BOOKER - 04/05/2015 15:58 STEWARD/STEWARDESS SECOND CLASS Dependent Habits Exposure to Tobacco Smoke : Other: Never Smoking Status : Never smoker Tobacco 2A : No JOSESITO SHAHIDAMALLORY BAKER TREAD BOOKER - 04/05/2015 15:58 STEWARD/STEWARDESS SECOND CLASS Caffeine Use Grid Caffeine Use : Current Type : Chocolate, Soft drinks Frequency : Occasionally SHAHIDA ARREOLA TREAD BOOKER - 04/05/2015 15:58 STEWARD/STEWARDESS SECOND CLASS Recreational Drug Use Grid Drug Use : None JOSESITO SHAHIDAMALLORY [facility] 04/05/2015 15:58 STEWARD/STEWARDESS SECOND CLASS Source: [facility] Ozura WorldCHART Document Id: [id number] STEWARD/STEWARDESS SECOND CLASS!36 ARD/STEWARDESS SECOND CLASS documented in this encounter Plan of Treatment Not on filedocumented as of this encounter Procedures Procedure Name Priority Date/Time Associated Diagnosis Comme nts HEPATIC FUNCTION Routine 04/05/2015 4:32 PM Resul ts for this PANEL, S STEWARD/STEWARDESS SECOND CLASS procedure are i n the results section. BASIC METABOLIC Routine 04/05/2015 4:32 PM Result s for this PANEL, S/P STEWARD/STEWARDESS SECOND CLASS procedure are i n the results section. documented in this encounter Results (ABNORMAL) Hepatic Function Panel (04/05/2015 4:32 PM STEWARD/STEWARDESS SECOND CLASS) [facility] Method Time Signature Alkaline 47 (L) 52 [...] / Volume Laterality Blood 04/05/2015 4:32 PM STEWARD/STEWARDESS SECOND CLASS Frankie Sood M.D. LAB BLOOD ADD-ON Performing Organization Address City/State/ZIP Code Phon e Number POWERCHART BMP (Basic Metabolic Panel) (04/05/2015 4:32 PM STEWARD/STEWARDESS SECOND CLASS) P athologist Signature BUN (Blood Urea 10 [...] POWERCHART MMOLL HXeGFR (MDRD) >60 >=60 POWERCHART [id number] eGFR >60 >=60 POWERCHART Black/ [id number] [place] Specimen (Source) Anatomical Collection Method Collection Time Re ceived Time Location / / Volume Laterality Blood 04/05/2015 4:32 PM STEWARD/STEWARDESS SECOND CLASS Frankie Sood M.D. LAB BLOOD ADD-ON Performing Organization Address City/State/ZIP Code Phon e Number POWERCHART documented in this encounter Visit Diagnoses Not on filedocumented in this encounter
--- OUTSIDE RECORDS SUMMARY | 2022-02-01 12:01 | XMS_ITS | Encounter Summary ---
:1995 Author Organization [facility] [place] [address] Care Team Providers Name Role Phone Unavailable Primary Care Provider Unavailable Encounter Details Date Type Department Care Team Description 11/10/2014 Hospital Encounter HX [facility] FBHB FAMILYPRA Zaynab Barr i, M.D. [address] [place] [phone] (Wo rk) Social History Tobacco Use Types [...] Skelton M.D. - 11/10/2014 9:41 AM CDT [id number] CHIEF COMPLAINT/ REASON FOR VISIT Cold symptoms. [...] behalf by Frida Espinosa, a trained medical and health services manager. The creation of this record is based on the scribe's personal observations and the provider's statements to them. This document has been chalo cked and approved by the attending provider. Zaynab Goodwin M.D./devon Electronically Signed By: ZAYNAB SKELTON MD On: 01/22/2015 10:12 AM Source: [facility] MHSDOLNAI Document Id: [id number] documented in this encounter Miscellaneous Notes Miscellaneous - Zaynab Skelton M.D. 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 Go to [email or web address] and click on Create Your Account. Then, follow the directions to complete the online form. Youll be asked for your [facility] number which you can find at the top of this document. Your Goals/Additional instructions: Source: [facility] POWERCHART Document Id: [id number] Miscellaneous - Zaynab Skelton M.D. - 11/10/2014 12:55 PM CDT Ambulatory Discharge Medication List [address] [id number] Visit Information Name: LILLYCHANDRIKA Nevarez JUNIOR [facility] Number: [id number] Visit Date: 11/10/2014 12:55:30 Attending [...] day x 10 day(s) New Routed to [address] [address] Stop Taking the Following Medications: [...] case of emergency. Electronically Signed By: ZAYNAB KSELTON MD Signed On:10-NOV-2014 12:55:24 Additional Information: Source: [facility] POWERCHART Document Id: [id number] Miscellaneous - Hollie Álvarez, L.P.N. - 11/10/2014 10:13 AM CDT Adult Director Emergency Intake/History Adult Director Emergency Intake/History Entered On: 11/10/2014 10:17 CDT Performed [...] 11/10/2014 10:13 CDT General Info Languages : Swedish Is Patient Female and 13-50 no hysterectomy [...] None HOLLIE ÁLVAREZ 11/10/2014 10:13 CDT Source: [employer] Document Id: [id number] CDT!42 documented in this encounter Plan of [...] Strep A Screen (11/10/2014 10:20 AM CDT) [facility] Method Time Signature HXRapid Strep POWERCHART Confirmation HXPre Negative for POWERCHART Group A Strep by culture. HXFinal Negative for POWERCHART Group A Strep by culture. Specimen Anatomical Collection Method Collection Time Receive d Time (Source) Location / / Volume Laterality Throat 11/10/2014 10:20 11/10/2014 AM CDT 10:20 AM CDT Zaynab Roberts M.D. LAB MICROBIOLOGY - GEN ERAL ORDERABLES Performing Organization Address City/[facility] Phon e Number POWERCHART Rapid Strep A Screen (11/10/2014 10:20 AM CDT) [facility] Method Time Signature HXStrep A POWERCHART Screen Rapid HXFinal Negative for POWERCHART Strep Group A by rapid screen. HXFinal Culture POWERCHART confirmation to follow. Specimen (Source) Anatomical Collection Method Collection Time Re ceived Time Location / / Volume Laterality Throat 11/10/2014 10:20 AM CDT Zaynab Roberts M.D. LAB MICROBIOLOGY - GEN ERAL ORDERABLES Performing Organization Address City/State/[facility] Code Phon e Number POWERCHART documented in this encounter Visit Diagnoses Not on filedocumented in this encounter
--- OUTSIDE RECORDS SUMMARY | 2022-02-01 12:01 | XMS_ITS | Encounter Summary ---
:1995 Author Organization [facility] [place] [address] Care Team Providers Name Role Phone Unavailable Primary Care Provider Unavailable Encounter Details Date Type Department Care Team Description 11/01/2015 Hospital Encounter HX [facility] FBHB FAMILYPRA Natalie Bedolla APRN, C.N.P. [address] [place] [phone] (Wo rk) Social History Tobacco Use Types [...] CHIEF COMPLAINT/REASON FOR VISIT Came home from [place] on Thursday from [place]. Lots of mosiquto bites. Became very swollen [...] Bismol as needed for nausea and diarrhea. [place] diet as tolerated, continue adequate fluid intake. Recheck if symptoms do not improve. Ordered: OV Est Pt Level 3 - 79991 - 15 min Electronically Signed By: PRICILA BEDOLLA APRN, CNP On: 11/01/2015 10:04 AM Source: [facility] POWERCHART Document Id: [id number] documented in this encounter Nursing Notes Pricila [...] with fever medication ?? New rash ?? [phone] Issa Nixon, [address] [place] [address], [place] [address]. All rights reserved. This information is not intended as a substitute for professional medical care. Always follow your healthcare professional's instructions. This document has images extracted. Please consider using [employer] for all your patient education needs. Source: [facility] POWERCHART Document Id: [id number] documented in this encounter Miscellaneous Notes Miscellaneous - Pricila Bedolla APRN, C.N.P. - 11/01/2015 9:57 AM CDT Ambulatory Patient Summary [address] [id number] Visit Information Name: CHANDRIKA ESQUEDA [facility] Number: [id number] Current Date: 11/01/2015 09:57:52 Physicians [...] with fever medication ?? New rash ?? [phone] Issa Nixon, [address] [place] [address], [place] [address]. All rights reserved. This information is not [...] if you dont have one. Go to [email or web address] and click on Create Your Account. Then, follow the directions to complete the online form. Youll be asked for your [facility] number which you can find at the top of this document. Your Goals/Additional instructions: This document has images extracted. Please consider using [employer] for all your patient education needs. Source: [facility] POWERCHART Document Id: [id number] Miscellaneous - Pricila Bedolla APRN, C.N.P. - 11/01/2015 9:57 AM CDT Ambulatory Discharge Medication List [address] [id number] Visit Information Name: CHANDRIKA ESQUEDAS [facility] Number: [id number] Visit Date: 11/01/2015 09:57:52 Attending Provider: PRICILA BEDOLLA APRN [employer] Primary Care Provider: MARGARITA PALAFOX MD LILLYCHANDRIKA [...] emergency. Electronically Signed By: PRICILA BEDOLLA APRN [employer] Signed On:01-NOV-2015 09:57:35 Additional Information: Source: [facility] POWERCHART Document Id: [id number] Miscellaneous - Shalom Kamara L.P.N. 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 Lots of mosiquto bites. Became very swollen [...] Preferred Communication Mode : Verbal Languages : Slovak Is Patient Female and 13-50 no hysterectomy : Yes Status : Patient denies Are you ? : No SHALOM KAMARA LPN - 11/01/2015 9:36 CDT Subjective Pain Symptoms : Yes SHALOM KAMARA [facility] - 11/01/2015 9:36 CDT Pain Scale Pain Scale Verbal 0-10 : Open SHALOM KAMARA [facility] - 11/01/2015 9:36 CDT Pain Pain Assessment Grid Pain 1 Pain 2 Location : Abdomen Head Intensity : 3 5 Time Pattern : Intermittent Constant SHALOM KAMARA [facility] - 11/01/2015 9:36 CDT SHALOM KAMARA [facility] - 11/01/2015 9:36 CDT Dependent Habits Exposure to Tobacco Smoke : Other: Never Smoking Status : Never smoker Tobacco 2A : No Tobacco Use/Currently Using : No Tobacco Use/Last 30 Days : No Tobacco Use/Last 12 months : No SHALOM KAMARA [facility] - 11/01/2015 9:36 CDT Caffeine Use Grid Caffeine Use : Current Type : Chocolate, Soft drinks Frequency : Occasionally SHALOM KAMARA [facility] - 11/01/2015 9:36 CDT Recreational Drug Use Grid Drug Use : None SHALOM KAMARA [facility] - 11/01/2015 9:36 CDT [facility] Document Id: [id number] CDT!56 documented in this encounter Plan of Treatment Not on filedocumented as of this encounter Visit Diagnoses Not on filedocumented in this encounter
--- OUTSIDE RECORDS SUMMARY | 2022-02-01 12:01 | XMS_ITS | Encounter Summary ---
:1995 Author Organization [facility] [place] [address] Care Team Providers Name Role Phone Unavailable Primary Care Provider Unavailable Encounter Details Date Type Department Care Team Description 03/27/2015 Hospital Encounter HX [facility] FB INTERNMED Jaycob Sood M.D. [address] [place] [address] [phone] (Wo rk) Social History Tobacco Use Types Packs/Day Years Used Date Smoking Tobacco: Never Assessed Sex Assigned at Date Recorded Female 07/27/2019 2:28 PM CDT documented as of this encounter Last Filed Vital Signs Vital Sign Reading Time Taken Comments Blood Pressure 128/75 03/27/2015 9:56 AM RN TRIAGE Pulse 72 03/27/2015 9:56 AM RN TRIAGE Temperature - - Respiratory Rate - - Oxygen Saturation - - Inhaled Oxygen Concentration - - Weight 71 kg (156 lb 8.4 oz) 03/27/2015 9:56 AM RN TRIAGE Height 173 cm (5' 8.11) 03/27/2015 9:56 AM RN TRIAGE Body Mass Index 23.72 03/27/2015 9:56 AM RN TRIAGE documented in this encounter Progress Notes Frankie Sood M.D. - 03/27/2015 9:49 AM CST [id number] CHIEF COMPLAINT/REASON FOR VISIT Vomiting, diarrhea. HISTORY OF PRESENT ILLNESS This is a new patient to my practice. She has seen other providers at the clinic before. She is 20 years of age. 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 - 04/02/2015 8:01 AM CST Results Notification Document Contains Addenda Addendum by SHAHIDA BELLAMY LPN on 02 April 2015 13:23:29 RN TRIAGE called with results From: FRANKIE SOOD MD To: TSEPHANI Sood Nurse; Sent: 04/02/2015 08:01:03 RN TRIAGE ! Show up: 04/02/2015 08:01:03 RN TRIAGE Subject: Results Notification Actions: Notify patient of results Reminder Comments: OK and specifically celiac serologies are negative Results: Date Result Name Value Ref Range 03/27/2015 10:38 TSH, Sensitive-[place] 2.8 mIU/L (0.3-4.2 - ) 03/27/2015 10:38 IgA-[place]iggins 161 mg/dL (61 - 356 - ) 03/27/2015 10:38 Celiac Dis Interp-[place] See Comment Source: [facility] POWERCHART Document Id: [id number] Electronically signed by Taryn [facility] Feed Mill Tender [id number] at 09/29/2016 6:10 AM CDT Miscellaneous - Frankie Sood M.D. - 03/27/2015 2:42 PM CST Results Notification Document Contains Addenda Addendum by SHAHIDA BELLAMY LPN on 28 March 2015 14:16:52 RN TRIAGE called with results From: FRANKIE SOOD MD To: STEPHANI Sood Nurse; Sent: 03/27/2015 14:42:34 RN TRIAGE ! Show up: 03/27/2015 14:42:34 RN TRIAGE Subject: Results Notification Actions: Notify patient of [...] - <=0.30) Source: [facility] POWERCHART Document Id: [id number] Miscellaneous - Frankie Sood M.D. - 03/27/2015 1:43 PM CST Results Notification Document Contains Addenda Addendum by SHAHIDA BELLAMY LPN on 28 March 2015 14:16:25 RN TRIAGE called with results From: FRANKIE SOOD MD To: STEPHANI Sood Nurse; Sent: 03/27/2015 13:43:39 RN TRIAGE ! Show up: 03/27/2015 13:43:39 RN TRIAGE Subject: Results Notification Actions: Notify patient of [...] 1.59 x10(9)/L (0.90 - 2.90) 03/27/2015 10:38 [place] Absolute 0.31 x10(9)/L (0.30 - 0.90) 03/27/2015 10:38 [place] Absolute (L) 0.04 x10(9)/L (0.05 - 0.50) 03/27/2015 10:38 Baso Absolute 0.01 x10(9)/L (0.00 - 0.30) [facility] Document Id: [id number] Frankie Pichardo M.D. - 03/27/2015 12:37 PM CST Results Notification Document Contains Addenda Addendum by SHAHIDA BELLAMY LPN on 28 March 2015 14:16:34 RN TRIAGE called with results From: FRANKIE SOOD MD To: STEPHANI Sood Nurse; Sent: 03/27/2015 12:37:05 RN TRIAGE ! Show up: 03/27/2015 12:37:05 RN TRIAGE Subject: Results Notification Actions: Notify patient of results Reminder Comments: ok Results: Date Result Name Value Ref Range 03/27/2015 10:38 Sed Rate 12 mm/hr (0 - 29) [facility] Document Id: [id number] Frankie Pichardo M.D. - 03/27/2015 10:19 AM CST Ambulatory Patient Summary [address] [id number] Visit Information Name: CHANDRIKA ESQUEDA [facility] Number: [id number] Current Date: 03/27/2015 10:19:15 Physicians [...] before meals and atbedtime New Routed to [address] [address] Stop Taking the Following Medications: [...] Malabsorption Active 02/15/2011 06/02/11 fructose / per [facility] Allergic reaction to drug, not elsewhere classified Active 06/03/2011 06/03/11 amoxicillin Your Upcoming Appointments Date Time Location Provider 04/04/2015 09:15 [facility] Frankie Sood MD Attention: Contact [...] no interest in eating or drinking ?? [phone] [facility], [address] [place] [address], [place] [address]. All rights reserved. This information is not [...] if you dont have one. Go to [email or web address] and click on Create Your Account. Then, follow the directions to complete the online form. Youll be asked for your [facility] number which you can find at the top of this document. Your Goals/Additional instructions: Source: [facility] POWERCHART Document Id: [id number] TRIAGE Miscellaneous - Frankie Sood M.D. 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 : No EMELINA ALEMAN [facility] - 03/27/2015 9:56 RN TRIAGE Subjective Pain Symptoms : Yes EMELINA ALEMAN CMA - 03/27/2015 9:56 RN TRIAGE Pain Scale Pain Scale Verbal 0-10 : Open EMELINA ALEMAN [facility] - 03/27/2015 9:56 RN TRIAGE Pain Pain Assessment Grid Pain 1 Location : Abdomen (Comment: Lower near waist line [EMELINA ALEMAN [facility] - 03/27/2015 9:56 RN TRIAGE] ) Laterality : Bilateral Intensity : 2 EMELINA ALEMAN [facility] - 03/27/2015 9:56 RN TRIAGE Dependent Habits Tobacco Use/Currently Using : No Exposure to Tobacco Smoke : Other: Never Smoking Status : Never smoker Alcohol Use : Yes EMELINA ALEMAN [facility] - 03/27/2015 9:56 RN TRIAGE Caffeine Use Grid Caffeine Use : Current Type : Chocolate, Soft drinks Frequency : Occasionally EMELINA ALEMAN [facility] - 03/27/2015 9:56 RN TRIAGE Recreational Drug Use Grid Drug Use : None EMELINA ALEMAN [facility] - 03/27/2015 9:56 RN TRIAGE Source: [facility] Document Id: [id number] RN TRIAGE!47 TRIAGE documented in this encounter Plan of Treatment Not on filedocumented as of this encounter Procedures Procedure Name Priority Date/Time Associated Comments Diagnosis HEPATIC FUNCTION PANEL, Routine 03/27/2015 10:38 Results for this S AM RN TRIAGE procedure are i n the results section. THYROID FUNCTION Routine 03/27/2015 10:38 Results for this CASCADE, S AM RN TRIAGE procedure are i n the results section. CELIAC DISEASE SEROLOGY Routine 03/27/2015 10:38 Results for this CASCADE, S AM RN TRIAGE procedure are i n the results section. AUTOMATED DIFFERENTIAL, Routine 03/27/2015 10:38 Results for this B AM RN TRIAGE procedure are i n the results section. TISSUE TRANSGLUTAMINASE Routine 03/27/2015 10:38 Results for this (TTG) AB, IGA, S AM RN TRIAGE procedure a re in the results section. SEDIMENTATION RATE, B Routine 03/27/2015 10:38 Re sults for this AM RN TRIAGE procedure are i n the results section. CBC WITH DIFFERENTIAL, B Routine 03/27/2015 10:38 Results for this AM RN TRIAGE procedure are i n the results section. BASIC METABOLIC PANEL, Routine 03/27/2015 10:38 R esults for this S/P AM RN TRIAGE procedure are i n the results section. documented in this encounter Results (ABNORMAL) Automated Differential (03/27/2015 10:38 AM RN TRIAGE) [facility] Method Time Signature Absolute 2.41 1.70 - POWERCHART Neutrophils 7.00 109L Lymphocytes 1.59 0.90 - POWERCHART 2.90 X109L Monocytes 0.31 0.30 - POWERCHART 0.90 X109L Eosinophils 0.04 (L) 0.05 - POWERCHART 0.50 X109L Absolute 0.01 0.00 - POWERCHART Basophil 0.30 X109L Specimen Anatomical Collection Method Collection Time Receive d Time (Source) Location / / Volume Laterality Blood 03/27/2015 10:38 03/27/2015 AM RN TRIAGE 10:38 AM RN TRIAGE Frankie Sood M.D. LAB BLOOD ADD-ON Performing Organization Address City/[facility] Code Phon e Number POWERCHART Sedimentation Rate (03/27/2015 10:38 AM RN TRIAGE) Analysis Performed At Patho logist Time Signature Sedimentation 12 0 - 29 POWERCHART Rate, B MMHR Specimen (Source) Anatomical Collection Method Collection Time Re ceived Time Location / / Volume Laterality Blood 03/27/2015 10:38 AM RN TRIAGE Frankie Sood M.D. LAB BLOOD ADD-ON Performing Organization Address City/[facility] Phon e Number POWERCHART CBC with Differential (03/27/2015 10:38 AM RN TRIAGE) P athologist Signature Leukocytes 4.4 3.4 - 10.5 POWERCHART X109L Erythrocytes 4.33 3.90 - 5.03 POWERCHART [id number] Hemoglobin 12.4 12.0 - 15.5 POWERCHART GDL Hematocrit 37.7 34.9 - 44.5 POWERCHART MCV 87.1 82.0 - 98.0 POWERCHART FL HX RDW 12.1 11.9 - 15.5 POWERCHART Platelet Count 183 150 - 450 POWERCHART X109L Specimen (Source) Anatomical Collection Method Collection Time Re ceived Time Location / / Volume Laterality Blood 03/27/2015 10:38 AM RN TRIAGE Frankie Sood M.D. LAB BLOOD ADD-ON Performing Organization Address City/[facility] Code Phon e Number POWERCHART tTG (Tissue Transglutaminase), Antibody, IgA (03/27/2015 10:38 AM RN TRIAGE) Patholo gist Method Time Signature Tissue <1.2 <4.0 POWERCHART Transglutaminase Ab, (Negative) IgA, S UNITML Comment: Test Performed by: [facility] [place] [address] Hand Pleater: Rishi Gauthier II, M.D., Ph.D. Specimen Anatomical Collection Method Collection Time Receive d Time (Source) Location / / Volume Laterality Blood 03/27/2015 10:38 03/28/2015 7:51 AM RN TRIAGE AM RN TRIAGE Historical Provider LAB BLOOD ADD-ON Performing Organization Address [facility] Phon e Number POWERCHART Celiac Disease Serology [place] (03/27/2015 10:38 AM RN TRIAGE) [facility] Method Time Signature HX IgA 161 61 - 356 POWERCHART MGDL Interpretation See Comment POWERCHART Comment: Negative serology. Celiac disease unlike ly. However, approximately 10% of patients with dmitriy c disease are seronegative. Also, patients who are alr ekrry adhering to a gluten-free diet may be seronegative. If celiac disease is highly clinically suspected, consider HL A-DQ typing. Test Performed by: [facility] [place] [address] Hand Pleater: Rishi Gauthier II, M.D., Ph.D. Specimen (Source) Anatomical Collection Method Collection Time Re ceived Time Location / / Volume Laterality Blood 03/27/2015 10:38 AM RN TRIAGE Frankie Sood M.D. LAB BLOOD ADD-ON Performing Organization Address [facility] Phon e Number POWERCHART (ABNORMAL) Hepatic Function Panel (03/27/2015 10:38 AM RN TRIAGE) [facility] Method Time Signature Alkaline 45 (L) [...] / Volume Laterality Blood 03/27/2015 10:38 AM RN TRIAGE Frankie Sood M.D. LAB BLOOD ADD-ON Performing Organization Address City/State/ZIP Code Phon e Number POWERCHART BMP (Basic Metabolic Panel) (03/27/2015 10:38 AM RN TRIAGE) P athologist Signature BUN (Blood Urea 9 [...] POWERCHART MMOLL HXeGFR (MDRD) >60 >=60 POWERCHART [id number] eGFR >60 >=60 POWERCHART Black/ [id number] [place] Specimen (Source) Anatomical Collection Method Collection Time Re ceived Time Location / / Volume Laterality Blood 03/27/2015 10:38 AM RN TRIAGE Frankie Sood M.D. LAB BLOOD ADD-ON Performing Organization Address City/[facility]/ZIP Code Phon e Number POWERCHART Thyroid Function [place] (03/27/2015 10:38 AM RN TRIAGE) athologist Signature TSH, Sensitive 2.8 0.3 - 4.2 POWERCHART MIUL Comment: Test Performed by: [place] [address] Hand Pleater: Rishi Gauthier II, M.D., Ph.D. Specimen (Source) Anatomical Collection Method Collection Time Re ceived Time Location / / Volume Laterality Blood 03/27/2015 10:38 AM RN TRIAGE Frankie Sood M.D. LAB BLOOD ADD-ON Performing Organization Address City/State/ZIP Code Phon e Number POWERCHART documented in this encounter Visit Diagnoses Not on filedocumented in this encounter
--- OUTSIDE RECORDS SUMMARY | 2022-02-01 12:01 | XMS_ITS | Encounter Summary ---
:1995 Author Organization [facility] [place] [address] Care Team Providers Name Role Phone Unavailable Primary Care Provider Unavailable Encounter Details Date Type Department Care Team Description 04/11/2015 Hospital Encounter HX [facility] FBHB INTERNMED Jaycob Sood M.D. [address] [place] [address] [phone] (Wo rk) Social History Tobacco Use Types Packs/Day Years Used Date Smoking Tobacco: Never Assessed Sex Assigned at Date Recorded Female 07/27/2019 2:28 PM CDT documented as of this encounter Last Filed Vital Signs Vital Sign Reading Time Taken Comments Blood Pressure 112/61 04/11/2015 1:41 PM MARGARINE CHURN OPERATOR Pulse 86 04/11/2015 1:41 PM MARGARINE CHURN OPERATOR Temperature - - Respiratory Rate 14 04/11/2015 1:41 PM MARGARINE CHURN OPERATOR Oxygen Saturation - - Inhaled Oxygen Concentration - - Weight 69.5 kg (153 lb 3.5 oz) 04/11/2015 1:41 PM MARGARINE CHURN OPERATOR Height 173 cm (5' 8.11) 04/11/2015 1:41 PM MARGARINE CHURN OPERATOR Body Mass Index 23.22 04/11/2015 1:41 PM MARGARINE CHURN OPERATOR documented in this encounter Progress Notes Frankie Sood M.D. - 04/11/2015 1:31 PM CST [id number] Chandrika presents today with the results for [...] step. I offered her to go to [place] and she does not want to do that yetat this point. Frankie Sood M.D./colin Electronically Signed By: FRANKIE SOOD MD On: 04/12/2015 07:46 AM Source: [facility] MHSDOLBEYNONRADSYS Document Id: [id number] ARINE CHURN OPERATOR documented in this encounter Nursing Notes Shahida Arreola L.PJoshuaNJoshua - 04/11/2015 2:04 PM CST HIDA order for HIDA scan faxed to [facility] Electronically Signed By: SHAHIDA ARREOLA LPN On: 04/11/2015 02:04 PM Source: [facility] POWERCHART Document Id: [id number] ARINE CHURN OPERATOR documented in this encounter Miscellaneous Notes Telephone Encounter - Conversion, Historical Provider Ser - 04/17/2015 1:01 PM CST *Phone Message Document Contains Addenda Addendum by SHAHIDA ARREOLA LPN on 17 April 2015 14:10:41 MARGARINE CHURN OPERATOR called with results Addendum by PRICILA BEDOLLA CNP on 17 April 2015 14:08:53 MARGARINE CHURN OPERATOR From: PRICILA BEDOLLA CNP To: SHAHIDA ARREOLA LPN; Sent: 04/17/2015 14:08:53 MARGARINE CHURN OPERATOR Subject: RE: *Phone Message HIDA scan is normal. Addendum by SHAHIDA ARREOLA LPN on 17 April 2015 14:05:49 MARGARINE CHURN OPERATOR From: SHAHIDA ARREOLA LPN ( [place] Nurse) To: PRICILA BEDOLLA CNP; Sent: 04/17/2015 14:05:49 MARGARINE CHURN OPERATOR Subject: FW: *Phone Message called for results From: FAV[facility]OD[facility] ( [facility] Safety Pin Assembling Machine Operator) To: [place] Nurse; Sent: 04/17/2015 13:01:43 MARGARINE CHURN OPERATOR Subject: *Phone Message Caller is: ( x ) Patient ( ) Mother ( ) Father ( ) Spouse ( ) Daughter ( ) Son ( ) Pharmacy ( ) Other: Physician: Patient Reason for Call: Message: Patient called to leave message with her provider's nurse (Indigo) Patient would like theresults of her tests she had done on Thursday. Call patient at [phone] Advice/Action: Source used: ( ) Verbalizes understanding [...] back cell phone number ( ) Source: [facility] POWERCHART Document Id: [id number] Miscellaneous - Frankie Sood M.D. - 04/11/2015 2:03 PM CST Ambulatory Patient Summary [address] [place] [id number] Visit Information Name: CHANDRIKA ESQUEDA [facility] Number: [id number] Current Date: 04/11/2015 14:03:29 Physicians [...] forms include: ?? A durable power of maintenance service technician for health care or health care proxy form. This form allows you to name a person to make treatment decisions on your behalf when you cant. This person is often called a health care proxy, medical or health care power of maintenance service technician, surrogate decision maker, or agent. ?? A [...] health care team members, such as a manager social media or compensation advisor. ?? [phone] [facility], [address] [place] [address]. All rights reserved. This information is not [...] if you dont have one. Go to [email or web address] and click on Create Your Account. Then, follow the directions to complete the online form. Youll be asked for your [facility] number which you can find at the top of this document. Your Goals/Additional instructions: This document has images extracted. Please consider using [employer] for all your patient education needs. Source: [facility] POWERCHART Document Id: [id number] ARINE CHURN OPERATOR Miscellaneous - Frankie Sood M.D. - 04/11/2015 2:03 PM CST Ambulatory Discharge Medication List [address] [id number] Visit Information Name: CHANDRIKA ESQUEDA [facility] Number: [id number] Visit Date: 04/11/2015 14:03:28 Attending [...] MD Signed On:11-APR-2015 14:01:51 Additional Information: Source: [facility] POWERCHART Document Id: [id number] ARINE CHURN OPERATOR Miscellaneous - Emelina Aleman, C.M.A. 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 : No EMELINA ALEMAN [facility] - 04/11/2015 13:41 MARGARINE CHURN OPERATOR Subjective Pain Symptoms : No EMELINA ALEMAN [facility] - 04/11/2015 13:41 MARGARINE CHURN OPERATOR Dependent Habits Exposure to Tobacco Smoke : Other: Never Smoking Status : Never smoker Tobacco 2A : No EMELINA ALEMAN [facility] - 04/11/2015 13:41 MARGARINE CHURN OPERATOR Caffeine Use Grid Caffeine Use : Current Type : Chocolate, Soft drinks Frequency : Occasionally EMELINA ALEMAN [facility] - 04/11/2015 13:41 MARGARINE CHURN OPERATOR Recreational Drug Use Grid Drug Use : None EMELINA ALEMAN [facility] - 04/11/2015 13:41 MARGARINE CHURN OPERATOR Source: [facility] POWERCHART Document Id: [id number] MARGARINE CHURN OPERATOR!37 ARINE CHURN OPERATOR documented in this encounter Plan of Treatment Not on filedocumented as of this encounter Visit Diagnoses Not on filedocumented in this encounter
--- OUTSIDE RECORDS SUMMARY | 2022-02-01 12:01 | XMS_ITS | Encounter Summary ---
:1995 Author Organization [facility] [place] [address] Care Team Providers Name Role Phone Unavailable Primary Care Provider Unavailable Encounter Details Date Type Department Care Team Description 08/24/2014 Hospital Encounter [facility] Stephen Figueroa Jr., M.D. [address], [place] [phone] (Wo rk) Social History [...] Figueroa M.D. - 08/24/2014 8:40 AM CDT [id number] The documentation for this visit is available in [employer] IMPRESSION/REPORT/PLAN A) Myopia, unchanged P) glasses at night only if desired. RTO 1-2 year Stephen Figueroa M.D./sissy Electronically Signed By: STEPHEN FIGUEROA MD On: 08/30/2014 09:01 AM Source: [facility] MHSDOLBEYNONRADSYS Document Id: [id number] documented in this encounter Miscellaneous Notes Miscellaneous - Stephen Figueroa M.D. 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 Your Goals/Additional instructions: [facility] POWERCHART Document Id: [id number] Miscellaneous - Stephen Figueroa M.D. - 08/24/2014 9:20 AM CDT Ambulatory Discharge Medication List [address] [id number] Visit Information Name: LILLYALEJANDRINACHANDRIKACORNELL PACHECO [facility] Number: [id number] Visit Date: 08/24/2014 09:20:54 Attending [...] MD Signed On:24-AUG-2014 09:20:50 Additional Information: Source: [facility] VeritractCHART Document Id: [id number] documented in this encounter Plan of Treatment Not on filedocumented as of this encounter Visit Diagnoses Not on filedocumented in this encounter
--- OUTSIDE RECORDS SUMMARY | 2022-02-01 12:01 | XMS_ITS | Encounter Summary ---
:1995 Author Organization [facility] [place] [address] Care Team Providers Name Role Phone Unavailable Primary Care Provider Unavailable Encounter Details Date Type Department Care Team Description 05/31/2015 Hospital Encounter HX [facility] FBHB FAMILYPRA Zaynab Barr i, M.D. [address] [place] [phone] (Wo rk) Social History Tobacco Use Types Packs/Day Years Used Date Smoking Tobacco: Never Assessed Sex Assigned at Date Recorded Female 07/27/2019 2:28 PM CDT documented as of this encounter Last Filed Vital Signs Vital Sign Reading Time Taken Comments Blood Pressure 102/60 05/31/2015 10:10 AM AUTOCLAVE OPERATOR Pulse 84 05/31/2015 10:10 AM AUTOCLAVE OPERATOR Temperature - - Respiratory Rate 12 05/31/2015 10:10 AM AUTOCLAVE OPERATOR Oxygen Saturation - - Inhaled Oxygen Concentration - - Weight 70 kg (154 lb 5.2 oz) 05/31/2015 10:10 AM AUTOCLAVE OPERATOR Height 173 cm (5' 8.11) 05/31/2015 9:47 AM AUTOCLAVE OPERATOR Body Mass Index 23.39 05/31/2015 9:47 AM AUTOCLAVE OPERATOR documented in this encounter Progress Notes Zaynab Skelton M.D. - 05/31/2015 9:45 AM CST [id number] CHIEF COMPLAINT/ REASON FOR VISIT Cold symptoms. [...] behalf by Frida Espinosa, a trained medical driver. The creation of this record is based on the scribe's personal observations and the provider's statements to them. This document has been chalo cked and approved by the attending provider. Zaynab Goodwin M.D./devon Electronically Signed By: ZAYNAB SKELTON MD On: 06/02/2015 09:09 PM Source: [facility] CORINNESDOLJUMARADSYS Document Id: [id number] CLAVE OPERATOR documented in this encounter Miscellaneous Notes Miscellaneous - Rabia Schaeffer L.P.N. - 05/31/2015 10:13 AM CST Health Assessment Health Assessment Entered On: 05/31/2015 10:14 AUTOCLAVE OPERATOR Performed On: 05/31/2015 10:13 AUTOCLAVE OPERATOR by RABIA SCHAEFFER LPN Health Assessment Complete Health Assessment Complete or Modified : Annual Health Assessment Annual Health Assessment Completed : Yes RABIA SCHAEFFER LPN - 05/31/2015 10:13 AUTOCLAVE OPERATOR Nutrition Nutrition Risk Factors by History Adult : None RABIA SCHAEFFER LPN - 05/31/2015 10:13 AUTOCLAVE OPERATOR Functional Current Daily Living Assistance : None RABIA SCHAEFFER LPN - 05/31/2015 10:13 AUTOCLAVE OPERATOR Dependent Habits Exposure to Tobacco Smoke : Other: Never Smoking Status : Never smoker Tobacco 2A : No Tobacco Use/Currently Using : No Tobacco Use/Last 30 Days : No Tobacco Use/Last 12 months : No RABIA SCHAEFFER LPN - 05/31/2015 10:13 AUTOCLAVE OPERATOR Caffeine Use Grid Caffeine Use : Current Type : Chocolate, Soft drinks Frequency : Occasionally RABIA SCHAEFEFR LPN - 05/31/2015 10:13 AUTOCLAVE OPERATOR Alcohol Use : No RABIA SCHAEFFER LPN - 05/31/2015 10:13 AUTOCLAVE OPERATOR Recreational Drug Use Grid Drug Use : None RABIA SCHAEFFER LPN - 05/31/2015 10:13 AUTOCLAVE OPERATOR Psychosocial Domestic Abuse Concerns : None Behavioral Health Screen/Safety Assmt : No Mormon Preference : Unknown RABIA SCHAEFFER LPN - 05/31/2015 10:13 AUTOCLAVE OPERATOR Advance Directive Advanced Directives : No Advance Directive Additional Information : No RABIA SCHAEFFER LPN - 05/31/2015 10:13 AUTOCLAVE OPERATOR Educ Needs Learning Style Preference Adult Grid Patient : Demonstration, Printed materials, Verbal explanation Family : Demonstration, Printed materials, Verbal explanation RABIA SCHAEFFER LPN - 05/31/2015 10:13 AUTOCLAVE OPERATOR Source: [facility] POWERCHART Document Id: [id number] AUTOCLAVE OPERATOR!35 CLAVE OPERATOR Miscellaneous - Rabia Schaeffer L.P.N. - 05/31/2015 10:10 AM CST Adult Light Equipment Operator Intake/History Adult Light Equipment Operator Intake/History Entered On: 05/31/2015 10:13 AUTOCLAVE OPERATOR Performed On: 05/31/2015 10:10 AUTOCLAVE OPERATOR by RABIA SCHAEFFER LPN Intake Chief Complaint [...] kg RABIA SCHAEFFER LPN - 05/31/2015 10:10 AUTOCLAVE OPERATOR General Info Information Given By : Patient Languages : British Is Patient Female and 13-50 no hysterectomy : Yes Status : Patient denies Are you ? : No RABIA SCHAEFFER LPN - 05/31/2015 10:10 AUTOCLAVE OPERATOR Subjective Pain Symptoms : Yes RABIA SCHAEFFER LPN - 05/31/2015 10:10 AUTOCLAVE OPERATOR Pain Scale Pain Scale Verbal 0-10 : Open RABIA SCHAEFFER LPN - 05/31/2015 10:10 AUTOCLAVE OPERATOR Pain Pain Assessment Grid Pain 1 Location : Sinus RABIA SCHAEFFER LPN - 05/31/2015 10:10 AUTOCLAVE OPERATOR Dependent Habits Exposure to Tobacco Smoke : Other: Never Smoking Status : Never smoker Tobacco 2A : No Tobacco Use/Currently Using : No Tobacco Use/Last 30 Days : No Tobacco Use/Last 12 months : No RABIA SCHAEFFER LPN - 05/31/2015 10:10 AUTOCLAVE OPERATOR Caffeine Use Grid Caffeine Use : Current Type : Chocolate, Soft drinks Frequency : Occasionally RABIA SCHAEFFER LPN - 05/31/2015 10:10 AUTOCLAVE OPERATOR Recreational Drug Use Grid Drug Use : None RABIA SCHAEFFER LPN - 05/31/2015 10:10 AUTOCLAVE OPERATOR Source: [facility] POWERCHART Document Id: [id number] AUTOCLAVE OPERATOR!44 CLAVE OPERATOR documented in this encounter Plan of Treatment Not on filedocumented as of this encounter Visit Diagnoses Not on filedocumented in this encounter
--- OUTSIDE RECORDS SUMMARY | 2022-02-01 12:01 | XMS_ITS | Encounter Summary ---
:1995 Author Organization [facility] [place] [address] Care Team Providers Name Role Phone Unavailable Primary Care Provider Unavailable Encounter Details Date Type Department Care Team Description 05/09/2014 Hospital Encounter HX [facility] FB FAMILYPRA Margarita Barr i, M.D. [address] [place] [phone] (Wo rk) Social History Tobacco Use Types Packs/Day Years Used Date Smoking Tobacco: Never Assessed Sex Assigned at Date Recorded Female 07/27/2019 2:28 PM CDT documented as of this encounter Last Filed Vital Signs Vital Sign Reading Time Taken Comments Blood Pressure 102/60 05/09/2014 9:43 AM BOAT HAND Pulse 72 05/09/2014 9:43 AM BOAT HAND Temperature - - Respiratory Rate 16 05/09/2014 9:43 AM BOAT HAND Oxygen Saturation - - Inhaled Oxygen Concentration - - Weight 68 kg (149 lb 14.6 oz) 05/09/2014 9:43 AM BOAT HAND Height 173 cm (5' 8.11) 05/09/2014 9:43 AM BOAT HAND Body Mass Index 22.72 05/09/2014 9:43 AM BOAT HAND documented in this encounter Progress Notes Margarita Skelton M.D. - 05/09/2014 9:23 AM CST [id number] CHIEF COMPLAINT/ REASON FOR VISIT Medication refill [...] behalf by Christie Johnson, a trained medical cash poster. The creation of this record is basedon the scribe's personal observations and the provider's statements to them. This document has been c hecked and approved by the attending provider. Margarita Morrow M.D./narinder Electronically Signed By: MARGARITA SKELTON MD On: 06/18/2014 09:07 PM Source: [facility] MHSDOLBEYNONRADSYS Document Id: [id number] HAND documented in this encounter Miscellaneous Notes Miscellaneous - Margarita Skelton M.D. - 05/09/2014 8:34 PM BOAT HAND Ambulatory Patient Summary [address] [id number] Visit Information Name: CHANDRIKA ESQUEDA [facility] Number: [id number] Current Date: 05/09/2014 20:34:56 [...] 02/15/2011 06/02/11 fructose / per [facility] Allergic reaction to drug, not elsewhere classified Active 06/03/2011 06/03/11 amoxicillin Your Upcoming Appointments Date Time Location Provider No Appointments found Attention: Contact your local Clinic if further appointment detail needed. Your Goals/Additional instructions: Source: [facility] POWERCHART Document Id: [id number] HAND Miscellaneous - Margarita Skelton M.D. - 05/09/2014 8:34 PM BOAT HAND Ambulatory Discharge Medication List [address] [id number] Visit Information Name: CHANDRIKA ESQUEDA JUNIOR [facility] Number: [id number] Visit Date: 05/09/2014 20:34:55 [...] MD Signed On:09-MAY-2014 20:34:40 Additional Information: Source: [facility] POWERCHART Document Id: [id number] HAND Miscellaneous - Conversion, Historical Provider Ser - 05/09/2014 9:43 AM BOAT HAND Adult Manager Women Intake/History Adult Manager Women Intake/History Entered On: 05/09/2014 9:44 BOAT HAND Performed On: 05/09/2014 9:43 BOAT HAND by LOIS CASAS LPN Intake LMP Date : 04/11/14 LOIS CASAS LPN - 05/09/2014 9:45 BOAT HAND Chief Complaint : control refill Temperature Core [...] kg/m2 LOIS CASAS LPN - 05/09/2014 9:43 BOAT HAND General Info Information Given By : Patient Languages : Luxembourgish Is Patient Female and 13-50 no hysterectomy : Yes Status : Patient denies Are you ? : No LOIS CASAS LPN - 05/09/2014 9:43 BOAT HAND Subjective Pain Symptoms : No LOIS CASAS LPN - 05/09/2014 9:43 BOAT HAND Dependent Habits Tobacco Use/Currently Using : No Exposure to Tobacco Smoke : Other: Never Smoking Status : Never smoker LOIS CASAS [facility] - 05/09/2014 9:43 BOAT HAND Tobacco Use Grid Last Use : never LOIS CASAS POWER ELECTRONICS RESEARCH ENGINEER - 05/09/2014 9:43 BOAT HAND Caffeine Use Grid Caffeine Use : Current Type : Chocolate, Soft drinks Frequency : Occasionally LOIS CASAS DANE POWER ELECTRONICS RESEARCH ENGINEER - 05/09/2014 9:43 BOAT HAND Recreational Drug Use Grid Drug Use : None LOIS CASAS DANE POWER ELECTRONICS RESEARCH ENGINEER - 05/09/2014 9:43 BOAT HAND ID Screen Travel Within Last 21 Days : No LOIS CASAS DANE POWER ELECTRONICS RESEARCH ENGINEER - 05/09/2014 9:43 BOAT HAND Source: [employer] Document Id: [id number] BOAT HAND!3 Miscellaneous - Conversion, Historical Provider Ser - 05/09/2014 9:43 AM BOAT HAND Health Assessment Health Assessment Entered On: 05/09/2014 9:45 BOAT HAND Performed On: 05/09/2014 9:43 BOAT HAND by LOIS CASAS LPN Health Assessment Complete Health Assessment Complete or Modified : Annual Health Assessment Annual Health Assessment Completed : Yes ANTONY ZEFERINO, LOIS CAROL POWER ELECTRONICS RESEARCH ENGINEER - 05/09/2014 9:43 BOAT HAND Nutrition Nutrition Risk Factors by History Adult : None LOIS CASAS [facility] - 05/09/2014 9:43 BOAT HAND Functional Current Daily Living Assistance : None ANTONY ZEFERINOLOIS DANE POWER ELECTRONICS RESEARCH ENGINEER - 05/09/2014 9:43 BOAT HAND Dependent Habits Tobacco Use/Currently Using : No Exposure to Tobacco Smoke : Other: Never Smoking Status : Never smoker LOIS CASAS [facility] - 05/09/2014 9:43 BOAT HAND Tobacco Use Grid Last Use : never LOIS CASAS DANE [facility] - 05/09/2014 9:43 BOAT HAND Caffeine Use Grid Caffeine Use : Current Type : Chocolate, Soft drinks Frequency : Occasionally ANTONY GILFREDY LOISDIDIER VELA LPN - 05/09/2014 9:43 BOAT HAND Recreational Drug Use Grid Drug Use : None ANTONY ZEFERINO, LOIS CAROL POWER ELECTRONICS RESEARCH ENGINEER - 05/09/2014 9:43 BOAT HAND Psychosocial Domestic Abuse Concerns : None Gnosticist Preference : Unknown LOIS CASAS POWER ELECTRONICS RESEARCH ENGINEER - 05/09/2014 9:43 BOAT HAND Advance Directive Advanced Directives : No Advance Directive Additional Information : No LOIS CASAS POWER ELECTRONICS RESEARCH ENGINEER - 05/09/2014 9:43 BOAT HAND Educ Needs Learning Style Preference Adult Grid Patient : Printed materials Family : Printed materials LOIS CASAS POWER ELECTRONICS RESEARCH ENGINEER - 05/09/2014 9:43 BOAT HAND Source: [facility] POWERCHART Document Id: [id number] BOAT HAND!33 documented in this encounter Plan of Treatment Not on filedocumented as of this encounter Visit Diagnoses Not on filedocumented in this encounter
--- OUTSIDE RECORDS SUMMARY | 2022-02-01 12:01 | XMS_ITS | Encounter Summary ---
:1995 Author Organization [facility] [place] [address] Care Team Providers Name Role Phone Unavailable Primary Care Provider Unavailable Encounter Details Date Type Department Care Team Description 11/10/2014 Hospital Encounter HX NO MAPPING Zaynab Roberts M.D. [address] [place], [place] [phone] (Wo rk) Social History Tobacco Use Types Packs/Day Years Used Date Smoking Tobacco: Never Assessed Sex Assigned at Date Recorded Female 07/27/2019 2:28 PM CDT documented as of this encounter Miscellaneous Notes Miscellaneous - Conversion, Historical Provider Ser - 11/10/2014 11:59 PM CDT Coding Summary-Paper Based CODING DATE: 11/16/2014 FINAL [facility] STATUS: * Discharged to Home or Self [...] FREDERICK Date Saved: 11/16/2014 06:40 pm [facility] Document Id: [id number] documented in this encounter Plan of Treatment Not on filedocumented as of this encounter Visit Diagnoses Not on filedocumented in this encounter
--- OUTSIDE RECORDS SUMMARY | 2022-02-01 12:01 | XMS_ITS | Encounter Summary ---
:1995 Author Organization [facility] [place] [address] Care Team Providers Name Role Phone Unavailable Primary Care Provider Unavailable Encounter Details Date Type Department Care Team Description 07/25/2014 Hospital Encounter HX [facility] FBHB FAMILYPRA Fabi Kam M.D. [address] [place], [place] [phone] (Wo rk) Social History [...] Kam M.D. - 07/25/2014 9:56 AM CDT [id number] CHIEF COMPLAINT/REASON FOR VISIT Vaginal discharge. HISTORY [...] provider up at but her college in [place] and had complete STD evaluation and empiric [...] KAM MD On: 07/26/2014 02:08 PM Source: [facility] MHSDOLBEYNONRADSYS Document Id: [id number] documented in this encounter Nursing Notes Leandra Davenport L.PJoshuaNJoshua - 07/27/2014 11:56 AM CDT Labs 07-25-14 Result card sent. Electronically Signed By: LEANDRA DAVENPORT LPN On: 07/27/2014 11:56 AM Source: [facility] POWERCHART Document Id: [id number] documented in this encounter Miscellaneous Notes Miscellaneous - Kylah Kam M.D. 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 Your Goals/Additional instructions: Source: [facility] POWERCHART Document Id: [id number] Miscellaneous - Kylah Kam M.D. - 07/25/2014 12:20 PM CDT Ambulatory Discharge Medication List [place] [id number] [facility] [place] [phone] Visit Information Name: CHANDRIKA ESQUEDA [facility] Number: [id number] Visit Date: 07/25/2014 12:20:51 Attending [...] Oral, once a day New Routed to [address] [place], [place] [phone] norgestimate-ethinyl estradiol (Tri-Sprintec oral tablet) 1 Tablet(s), [...] MD Signed On:25-JUL-2014 12:20:43 Additional Information: Source: [facility] POWERCHART Document Id: [id number] Miscellaneous - Leandra Davenport L.P.NJoshua - 07/25/2014 10:00 AM CDT Adult Window Installation Subcontractor Intake/History Adult Window Installation Subcontractor Intake/History Entered On: 07/25/2014 10:03 CDT Performed [...] 07/25/2014 10:00 CDT General Info Languages : Amharic Is Patient Female and 13-50 no hysterectomy [...] DAVENPORT LPN - 07/25/2014 10:00 CDT Source: [employer] Document Id: [id number] CDT!39 documented in this encounter Plan of [...] Prep Exam, Urogenital (07/25/2014 10:30 AM CDT) [facility] gist Method Time Signature HXWet Prep POWERCHART HXFinal No yeast, POWERCHART Trichomonas, clue cells, or sperm seen. HXFinal large amt. of POWERCHART bacterial rods and lge amt of wbc's Specimen (Source) Anatomical Collection Method Collection Time Re ceived Time Location / / Volume Laterality Vagina 07/25/2014 10:30 AM CDT Kylah Kam M.D. LAB MICROBIOLOGY - GENERAL O RDERABLES Performing Organization Address City/[facility] Phon e Number POWERCHART HX-C trach Amp RNA (07/25/2014 10:28 AM CDT) [facility] gist Method Time Signature Chlamydia Negative POWERCHART trachomatis amplified RNA Specimen (Source) Anatomical Collection Method Collection Time Re ceived Time Location / / Volume Laterality 07/25/2014 10:28 AM CDT Narrative POWERCHART - 07/26/2014 7:41 PM CDT Test Performed by: [place] [address] Mathematics Faculty Member: Rishi Gauthier II, M.D., Ph.D. Kylah Kam M.D. LAB HISTORICAL ORDERS Performing Organization Address City/[facility]/ZIP Code Phon e Number POWERCHART HX-C trach Amp Src (07/25/2014 10:28 AM CDT) [facility] Method Time Signature HXC trach Amp Endocervical POWERCHART [place] Specimen (Source) Anatomical Collection Method Collection Time Re ceived Time Location / / Volume Laterality 07/25/2014 10:28 AM CDT Kylah Kam M.D. LAB HISTORICAL ORDERS Performing Organization Address City/[facility] Code Phon e Number POWERCHART documented in this encounter Visit Diagnoses Not on filedocumented in this encounter
--- OUTSIDE RECORDS SUMMARY | 2022-02-01 12:01 | XMS_ITS | Encounter Summary ---
:1995 Author Organization [facility] [place] [address] Care Team Providers Name Role Phone Unavailable Primary Care Provider Unavailable Encounter Details Date Type Department Care Team Description 04/04/2015 Hospital Encounter HX [facility] FB INTERNMED Jaycob Sood M.D. [address] [place] [phone] (Wo rk) Social History Tobacco Use Types Packs/Day Years Used Date Smoking Tobacco: Never Assessed Sex Assigned at Date Recorded Female 07/27/2019 2:28 PM CDT documented as of this encounter Last Filed Vital Signs Vital Sign Reading Time Taken Comments Blood Pressure 108/62 04/04/2015 9:19 AM CLINICAL DOCUMENTATION CLERK Pulse 108 04/04/2015 9:19 AM CLINICAL DOCUMENTATION CLERK Temperature - - Respiratory Rate 14 04/04/2015 9:19 AM CLINICAL DOCUMENTATION CLERK Oxygen Saturation - - Inhaled Oxygen Concentration - - Weight 71.5 kg (157 lb 10.1 oz) 04/04/2015 9:19 AM CLINICAL DOCUMENTATION CLERK Height 173 cm (5' 8.11) 04/04/2015 9:19 AM CLINICAL DOCUMENTATION CLERK Body Mass Index 23.89 04/04/2015 9:19 AM CLINICAL DOCUMENTATION CLERK documented in this encounter Progress Notes Frankie Sood M.D. - 04/04/2015 9:11 AM CST [id number] Chandrika comes today much improved. She feels [...] SOOD MD On: 04/04/2015 03:07 PM Source: [facility] MHSDOLBEYNONRADSYS Document Id: [id number] ICAL DOCUMENTATION CLERK documented in this encounter Miscellaneous Notes Miscellaneous - Frankie Sood M.D. - 04/04/2015 9:30 AM CST Ambulatory Patient Summary [address] [id number] Visit Information Name: CHANDRIKA ESQUEDA [facility] Number: [id number] Current Date: 04/04/2015 09:30:15 Physicians [...] day x 3 day(s) New Routed to [facility] [address] [place] [address] desogestrel-ethinyl estradiol (Desogen 0.15 mg-0.03 mg oral tablet) 1 Tablet(s), Oral, once a day dicyclomine (Bentyl 10 mg oral capsule) 1 cap, Oral, four times a day 30 minutes before meals and atbedtime Routed to [facility] [address] [place] [address] Stop Taking the Following Medications: [...] 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 [id number] [place] [address]. All rights reserved. This information is not [...] online form. Youll be asked for your [facility] number which you can find at the top of this document. Your Goals/Additional instructions: Source: [facility] POWERCHART Document Id: [id number] ICAL DOCUMENTATION CLERK Miscellaneous - Frankie Sood M.D. - 04/04/2015 9:30 AM CST Ambulatory Discharge Medication List [address] [id number] Visit Information Name: CHANDRIKA ESQUEDA [facility] Number: [id number] Visit Date: 04/04/2015 09:30:14 Attending [...] day x 3 day(s) New Routed to [facility] [address] [place] [address] desogestrel-ethinyl estradiol (Desogen 0.15 mg-0.03 mg oral tablet) 1 Tablet(s), Oral, once a day dicyclomine (Bentyl 10 mg oral capsule) 1 cap, Oral, four times a day 30 minutes before meals and atbedtime Routed to [facility] [address] [place] [address] Stop Taking the Following Medications: [...] MD Signed On:04-APR-2015 09:27:59 Additional Information: Source: [facility] POWERCHART Document Id: [id number] ICAL DOCUMENTATION CLERK Miscellaneous - Kaleb Aleman C.MJoshuaAJoshua - 04/04/2015 9:19 AM CST Adult Benefits Specialist Intake/History Adult Benefits Specialist Intake/History Entered On: 04/04/2015 9:20 CLINICAL DOCUMENTATION CLERK Performed On: 04/04/2015 9:19 CLINICAL DOCUMENTATION CLERK by KALEB ALEMAN [facility] Intake Chief Complaint : Fu/ from previous [...] Mass Index : 23.89 kg/m2 KALEB ALEMAN [facility] - 04/04/2015 9:19 CLINICAL DOCUMENTATION CLERK General Info Information Given By : Patient Languages : Indian Is Patient Female and 13-50 no hysterectomy : Yes Status : Patient denies Are you ? : No KALEB ALEMAN CMA - 04/04/2015 9:19 CLINICAL DOCUMENTATION CLERK Subjective Pain Symptoms : No KALEB ALEMAN CMA - 04/04/2015 9:19 CLINICAL DOCUMENTATION CLERK Dependent Habits Exposure to Tobacco Smoke : Other: Never Smoking Status : Never smoker Tobacco 2A : No KALEB ALEMAN CMA - 04/04/2015 9:19 CLINICAL DOCUMENTATION CLERK Caffeine Use Grid Caffeine Use : Current Type : Chocolate, Soft drinks Frequency : Occasionally KALEB ALEMAN CMA - 04/04/2015 9:19 CLINICAL DOCUMENTATION CLERK Recreational Drug Use Grid Drug Use : None KALEB ALEMAN CMA - 04/04/2015 9:19 CLINICAL DOCUMENTATION CLERK Source: [facility] POWERCHART Document Id: [id number] CLINICAL DOCUMENTATION CLERK!40 ICAL DOCUMENTATION CLERK documented in this encounter Plan of Treatment Not on filedocumented as of this encounter Visit Diagnoses Not on filedocumented in this encounter
--- OUTSIDE RECORDS SUMMARY | 2022-02-01 12:01 | XMS_ITS | Encounter Summary ---
:1995 Author Organization [facility] [place] [address] Care Team Providers Name Role Phone Unavailable Primary Care Provider Unavailable Encounter Details Date Type Department Care Team Description 10/04/2013 Hospital Encounter HX [facility] FBHB FAMILYPRA Margarita Barr i, M.D. [address] [place] [phone] (Wo rk) Social History Tobacco Use Types [...] MORROW MD On: 10/24/2013 10:57 PM Source: [facility] MHSDOLBEYNONRADSYS Document Id: [id number] documented in this encounter Miscellaneous Notes Miscellaneous - Angela Strange R.N. - 05/08/2014 5:09 PM CST BCP... From: ANGELA STRANGE ([facility] Medication Refill) To: MARGARITA MORROW MD; Sent: 05/08/2014 17:09:52 BOX SPINNER Subject: BCP... Caller is: ( ) Patient [...] Call to Pharmacy ( ) Patient will cotton picker Script ( ) Mail Rx to Patient Source: [facility] POWERCHART Document Id: [id number] Electronically signed by Conversion, [facility] Molded Goods Inspector Trimmer [id number] at 09/30/2016 8:48 PM CDT Telephone Encounter [...] pharmacy and they will transfer it to [place]. Addendum by MARGARITA MORROW MD on 03 [...] Subject: FW: *Phone Message From: LEONARDO VALDERRAMA ([facility] Nurse) To: STEPHANI Morrow Nurse; Sent: 03/03/2014 [...] the new meds to Chandrika up in [place] this weekend r: Oralia wants call back as soon as possible at [phone] Advice/Action: Source used: ( ) Verbalizes understanding [...] back cell phone number ( ) Source: [facility] POWERCHART Document Id: [id number] Miscellaneous - Angela Strange, RJoshuaN. - 02/22/2014 11:53 AM CDT BCP Document Contains Addenda Addendum by MARGARITA MORROW MD on 22 February 2014 12:37:45 CDT From: MARGARITA MORROW MD Sent: 02/22/2014 12:37:45 CDT Subject: RE:BCP Approved Order:norgestimate-ethinyl estradiol (Tri-Sprintec oral tablet) 1 tab(s) PO Daily Qty: 84 tab(s) Refills: 0 Substitutions Allowed Route To Pharmacy - [facility] [id number] Signed by MARGARITA MORROW MD 02/22/2014 12:13:07 From: ANGELA STRANGE To: MARGARITA MORROW MD; Sent: 02/22/2014 11:53:30 CDT Subject: BCP On hold pending signature Order:norgestimate-ethinyl estradiol (Tri-Sprintec oral tablet) 1 tab(s) PO Daily Qty: 84 tab(s) Refills: 0 Substitutions Allowed Route To Pharmacy - [facility] [id number] Caller is: ( ) Patient ( ) [...] Call to Pharmacy ( ) Patient will cotton picker Script ( ) Mail Rxto Patient Source: [facility] POWERCHART Document Id: [id number] Electronically signed by Taryn, [facility] Molded Goods Inspector Trimmer [id number] at 09/30/2016 8:48 PM CDT Miscellaneous - Margarita Skelton M.D. - 10/04/2013 10:56 PM CDT Ambulatory Patient Summary [address] [id number] Visit Information Name: CHANDRIKA ESQUEDA [facility] Number: [id number] Current Date: 10/04/2013 22:56:12 [...] appointment detail needed. Your Goals/Additional instructions: Source: [facility] POWERCHART Document Id: [id number] Miscellaneous - Margarita Skelton M.D. - 10/04/2013 10:56 PM CDT Ambulatory Discharge Medication List [address] [id number] Visit Information Name: CHANDRIKA ESQUEDA [facility] Number: [id number] Visit Date: 10/04/2013 22:56:10 [...] MD Signed On:04-OCT-2013 22:56:02 Additional Information: Source: [facility] POWERCHART Document Id: [id number] Miscellaneous - Conversion, Historical Provider Ser - 10/04/2013 2:09 PM CDT Adult Machinery Erector Intake/History Adult Machinery Erector Intake/History Entered On: 10/04/2013 14:11 CDT Performed [...] Mass Index : 21.8 kg/m2 LOIS CASAS [facility] 10/04/2013 14:09 CDT General Info Information Given By : Patient Languages : Serbian LOIS CASAS [facility] - 10/04/2013 14:09 CDT Subjective Pain Symptoms : Yes LOIS CASAS [facility] 10/04/2013 14:09 CDT Pain Pain Assessment Grid Pain 1 Location : Throat LOIS CASAS [facility] - 10/04/2013 14:09 CDT Dependent Habits Tobacco Use/Currently Using : No Exposure to Tobacco Smoke : Other: Never Smoking Status : Never smoker LOIS CASAS [facility] - 10/04/2013 14:09 CDT Tobacco Use Grid Last Use : never LOIS CASAS [facility] 10/04/2013 14:09 CDT Caffeine Use Grid Caffeine Use : Current Type : Chocolate, Soft drinks Frequency : Occasionally LOIS CASAS [facility] - 10/04/2013 14:09 CDT Recreational Drug Use Grid Drug Use : None LOIS CASAS [facility] 10/04/2013 14:09 CDT [facility] Document Id: [id number] CDT!40 documented in this encounter Plan of Treatment Not on filedocumented as of this encounter Visit Diagnoses Not on filedocumented in this encounter
--- OUTSIDE RECORDS SUMMARY | 2022-02-01 12:01 | XMS_ITS | Encounter Summary ---
:1995 Author Organization [facility] [place] [address] Care Team Providers Name Role Phone Unavailable Primary Care Provider Unavailable Encounter Details Date Type Department Care Team Description 08/10/2014 Hospital Encounter HX [facility] FB FAMILYPRA Margarita Barr i, M.D. [address] [place] [phone] (Wo rk) Social History Tobacco Use Types [...] Palafox M.D. - 08/10/2014 2:23 PM CDT [id number] CHIEF COMPLAINT/ REASON FOR VISIT Sinus infection. [...] behalf by Hyacinth Grant, a trained medical delivery technician. The creation of this record is based on the scribe's personal observations and the provider's statements to them. This document has been checked and approved by the attending provider. Margarita Grantnzinski, M.D./ Electronically Signed By: MARGARITA PALAFOX MD On: 08/29/2014 06:24 PM Source: [facility] MHSDOLBEYNONRADSYS Document Id: [id number] documented in this encounter Miscellaneous Notes Telephone Encounter - Haydee Philip - 10/25/2014 4:07 PM CDT *Phone Message Document Contains Addenda Addendum by MARGARITA PALAFOX MD on 26 October 2014 21:35:52 CDT From: MARGARITA PALAFOX MD To: STEPHANI Bolivar Medication Refill; Sent: 10/26/2014 21:35:52 CDT Subject: RE: *Phone Message done From: HAYDEE PHILIP LPN ([facility] Medication Refill) To: MARGARITA PALAFOX MD; Sent: [...] mg tabs. Message: Is now going [facility] and previous pharmacy sent over the Rx for the old one.Indicates has doses only until Thursday. Advice/Action: Please send to [id number] [phone] Source used: ( ) Verbalizes understanding of [...] back cell phone number ( ) Source: [facility] POWERCHART Document Id: [id number] Electronically signed by Conversion, [facility] Wine Master [id number] at 09/28/2016 3:08 PM CDT Telephone Encounter - Conversion, Historical Provider Ser - 10/25/2014 12:28 PM CDT *Phone Message Document Contains Addenda Addendum by LOIS CASAS LPN on 25 October 2014 14:34:55 CDT From: LOIS CASAS LPN ([facility] Nurse) To: Rohan Medication Refill; Sent: 10/25/2014 14:34:55 CDT Subject: FW: *Phone Message From: INGE WOODY ([facility] Nurse) To: [facility] Nurse; Sent: 10/25/2014 12:28:24 CDT Subject: *Phone [...] have switched to [facility] in [place]: [phone] Advice/Action: Source used: ( ) Verbalizes understanding [...] back cell phone number ( ) Source: [facility] VelomedixCHART Document Id: [id number] Miscellaneous - Margarita Palafox M.D. - 08/10/2014 5:40 PM CDT Ambulatory Patient Summary [address] [id number] Visit Information Name: CHANDRIKA ESQUEDA [facility] Number: [id number] Current Date: 08/10/2014 17:40:11 [...] directed x 5 day(s) New Routed to [facility] [address] [place] [address] desogestrel-ethinyl estradiol (Desogen 0.15 mg-0.03 mg oral [...] 02/15/2011 06/02/11 fructose / per [facility] Allergic reaction to drug, not elsewhere classified Active 06/03/2011 06/03/11 amoxicillin Your Upcoming Appointments Date Time Location Provider 08/24/2014 08:40 [facility] Marissa Jimenez MD, Stephen Chamberlain Attention: Contact your local Clinic if further appointment detail needed. Your Goals/Additional instructions: Source: [facility] POWERCHART Document Id: [id number] Miscellaneous - Margarita Palafox M.D. - 08/10/2014 5:40 PM CDT Ambulatory Discharge Medication List [address] [id number] Visit Information Name: CHANDRIKA ESQUEDA [facility] Number: [id number] Visit Date: 08/10/2014 17:40:10 [...] directed x 5 day(s) New Routed to [facility] [address] [place] [address] desogestrel-ethinyl estradiol (Desogen 0.15 mg-0.03 mg oral [...] MD Signed On:10-AUG-2014 17:40:06 Additional Information: Source: [facility] POWERCHART Document Id: [id number] Miscellaneous - Irma Bhatt, L.P.N. - 08/10/2014 3:03 PM CDT Adult Ground Service Equipment Mechanic Intake/History Adult Ground Service Equipment Mechanic Intake/History Entered On: 08/10/2014 15:07 CDT Performed [...] 08/10/2014 15:03 CDT General Info Languages : Sudanese Is Patient Female and 13-50 no hysterectomy [...] No IRMA BHATT 08/10/2014 15:03 CDT [facility] POWER[facility] Document Id: [id number] CDT!48 documented in this encounter Plan of Treatment Not on filedocumented as of this encounter Visit Diagnoses Not on filedocumented in this encounter
--- OUTSIDE RECORDS SUMMARY | 2022-02-01 12:01 | XMS_ITS | Encounter Summary ---
:1995 Author Organization [facility] [place] [address] Care Team Providers Name Role Phone Jake Villegas M.D. Primary Care Provider Encounter Details Date Type Department Care Team Description 08/24/2014 Historical Ophthalmology [facility] Stephen Jimenez Jr., M.D. [address] [place], [place] [phone] (Wo rk) Social History [...] 1-2 year CDM Reports - EYEGEN Id: [id number] Status: Fnl documented in this encounter Plan of Treatment Not on filedocumented as of this encounter Visit Diagnoses Not on filedocumented in this encounter Additional Health Concerns Infection Onset Date Last Indicated Resolved Time COVID19 Pending 04/11/2020 04/11/2020 04/11/2020 2:39 PM INFORMATION ASSOC COVID19 Pending 04/11/2020 04/11/2020 04/12/2020 4:05 AM INFORMATION ASSOC COVID19 Pending 07/24/2020 07/24/2020 07/25/2020 4:38 AM CDT COVID19 07/24/2020 07/24/2020 08/13/2020 4:46 AM CDT documented as of this encounter Care Teams Vendor Analyst Relationship Specialty Start Date End Date Jake Villegas M.D. PCP - General 06/14/[address] [place], [place] [address]ANASTASIA Proctor [phone] documented as of this encounter
--- OUTSIDE RECORDS SUMMARY | 2022-02-01 12:01 | XMS_ITS | Encounter Summary ---
:1995 Author Organization [facility] [address] Care Team Providers Name Role Phone Unavailable Primary Care Provider Unavailable Encounter Details Date Type Department Care Team Description 02/15/2015 Hospital Encounter HX [facility] FBHB FAMILYPRA Margarita Barr i, M.D. [address] [place] [phone] (Wo rk) Social History Tobacco Use Types [...] Skelton M.D. - 02/15/2015 2:11 PM CDT [id number] CHIEF COMPLAINT/ REASON FOR VISIT Lump behind [...] behalf by Hyacinth Moreno, a trained medical health researcher. The creation of this record is based on the scribe's personal observations and the provider's statements to them. This document has been ch ecked and approved by the attending provider. Margarita Goodwin M.D./ Electronically Signed By: MARGARITA SKELTON MD On: 02/16/2015 10:59 PM Source: [facility] MHSDOLBEYNONRADSYS Document Id: [id number] documented in this encounter Miscellaneous Notes Miscellaneous - Irma Duran, L.P.N. - 02/15/2015 2:25 PM CDT Adult Half Sole Fitter Intake/History Adult Half Sole Fitter Intake/History Entered On: 02/15/2015 14:27 CDT Performed [...] Information Given By : Patient Languages : Syrian Is Patient Female and 13-50 no hysterectomy : Yes Status : Patient denies Are you ? : No IRMA DURAN LPN - 02/15/2015 14:25 CDT Subjective Pain Symptoms : Yes IRMA DURAN LPN - 02/15/2015 14:25 CDT Pain Scale Pain Scale Verbal 0-10 : Open IRMA DURAN [facility] - 02/15/2015 14:25 CDT Pain Pain [...] Grid Drug Use : None IRMA DURAN [facility] 02/15/2015 14:25 CDT [facility] Document Id: [id number] CDT!43 documented in this encounter Plan of Treatment Not on filedocumented as of this encounter Visit Diagnoses Not on filedocumented in this encounter
--- OUTSIDE RECORDS SUMMARY | 2022-02-01 12:01 | XMS_ITS | Encounter Summary ---
:1995 Author Organization [facility] [place] [address] Care Team Providers Name Role Phone Unavailable Primary Care Provider Unavailable Encounter Details Date Type Department Care Team Description 09/17/2015 Hospital Encounter HX [facility] XPRESSCAR Nuria Gastelum, P.A.-C. [address], [address] [place], [place] [address] (Wo rk) Social History [...] Gastelum, P.A.-C. - 09/17/2015 1:05 PM CDT [id number] [facility] PATIENT NAME: Chandrika Esqueda CHIEF [...] warm, itching, and getting larger. She denies btar-leu-azbmpzv treatments. Otherwise, she is asymptomatic. CURRENT MEDICATIONS [...] with topical Benadryl cream or 1% hydrocortisone himy-hjp-hhotdhj as directed. I also recommend she take an oral antihistamine such as Zyrtec until complete resolution or until itching stops. Follow up with primary care provider in the next 1-2 his symptoms persist unchanged or worsen. Martin Martinez/shefali Electronically Signed By: BRODERICK GASTELUM PA-C On: 09/17/2015 04:17 PM Source: [facility] MHSDOLBEYNONRADSYS Document Id: [id number] documented in this encounter Miscellaneous Notes Miscellaneous - Broderick Gastelum P.A.-C. - 09/17/2015 1:41 PM CDT Ambulatory Patient Summary [facility] [address] [place] [id number] Visit Information Name: CHANDRIKA ESQUEDA [facility] Number: [id number] Current Date: 09/17/2015 13:41:22 Physicians [...] if you dont have one. Go to [email or web address] and click on Create Your Account. Then, follow the directions to complete the online form. Youll be asked for your [facility] number which you can find at the top of this document. Your Goals/Additional instructions: Source: [facility] POWERCHART Document Id: [id number] Miscellaneous - Broderick Gastelum P.A.-C. - 09/17/2015 1:41 PM CDT Ambulatory Discharge Medication List [address] [id number] Visit Information Name: CHANDRIKA ESQUEDA [facility] Number: [id number] Visit Date: 09/17/2015 13:41:21 Attending [...] PA-C Signed On:17-SEP-2015 13:40:58 Additional Information: Source: [facility] POWERCHART Document Id: [id number] Miscellaneous - Mag Richmond C.M.A. - 09/17/2015 1:19 PM CDT Adult Sales Representative Graphic Art Intake/History Adult Sales Representative Graphic Art Intake/History Entered On: 09/17/2015 13:25 CDT Performed On: 09/17/2015 13:19 CDT by MAG RICHMOND [facility] Intake Chief Complaint : red, itchy bump [...] 98 % Oxygen Therapy : Room air MAG RICHMOND [facility] - 09/17/2015 13:19 CDT General Info Information Given By : Patient Languages : Urdu Is Patient Female and 13-50 no hysterectomy : Yes Status : Patient denies Are you ? : No MAG RICHMOND [facility] - 09/17/2015 13:19 CDT Subjective Pain Symptoms : No MAG RICHMOND CMA 09/17/2015 13:19 CDT Dependent Habits Exposure to Tobacco Smoke : Other: Never Smoking Status : Never smoker Tobacco 2A : No Tobacco Use/Currently Using : No Tobacco Use/Last 30 Days : No Tobacco Use/Last 12 months : No MAG RICHMOND [facility] - 09/17/2015 13:19 CDT Caffeine Use Grid Caffeine Use : Current Type : Chocolate, Soft drinks Frequency : Occasionally MAG RICHMOND CMA 09/17/2015 13:19 CDT Recreational Drug Use Grid Drug Use : None MAG RICHMOND CMA 09/17/2015 13:19 CDT Source: [facility] [employer] Document Id: [id number] CDT!38 documented in this encounter Plan of Treatment Not on filedocumented as of this encounter Visit Diagnoses Not on filedocumented in this encounter
--- OUTSIDE RECORDS SUMMARY | 2022-02-01 12:02 | XMS_ITS | Encounter Summary ---
:1995 Author Organization [facility] [place] [address] Care Team Providers Name Role Phone Unavailable Primary Care Provider Unavailable Encounter Details Date Type Department Care Team Description 11/18/2010 Hospital Encounter HX [facility] FB FAMILYPRA Margarita Barr i, M.D. [address] [place] [phone] (Wo rk) Social History Tobacco Use Types Packs/Day Years Used Date Smoking Tobacco: Never Assessed Sex Assigned at Date Recorded Female 07/27/2019 2:28 PM CDT documented as of this encounter Progress Notes Margarita Skelton M.D. - 11/18/2010 12:00 AM CDT [id number] CHIEF COMPLAINT/ REASON FOR VISIT Stomachache HISTORY [...] MORROW MD On: 02/03/2011 01:15 PM Source: [facility] MHSDOLBEYNONRADSYS Document Id: [id number] documented in this encounter Nursing Notes Conversion, Historical Provider Ser - 11/18/2010 3:35 PM CDT gi appt [facility] gi appt pending Electronically Signed By: LOIS CASAS LPN On: 11/18/2010 03:35 pm Source: [facility] POWERCHART Document Id: [id number] documented in this encounter Miscellaneous Notes Miscellaneous [...] results Due Date/Time: 11/22/2010 16:56:00 CDT Source: [facility] [employer] FundCHART Document Id: [id number] Electronically signed by Conversion, [facility] Transportation Planner [id number] at 10/05/2016 3:46 PM CDT Suricellshannon - [...] results Due Date/Time: 11/19/2010 09:19:00 CDT Source: [facility] POWERCHART Document Id: [id number] Electronically signed by Conversion, [facility] Transportation Planner [id number] at 10/05/2016 3:46 PM CDT SuricellMargarita Recinos M.D. - 11/18/2010 5:12 PM CDT Results Notification Document Contains Addenda Addendum by GEO CHAVIS on 19 November 2010 09:58:15 CDT MAILED TO PATIENT. From: MARGARITA MORROW MD To: LOIS CASAS Sent: 11/18/2010 17:12:56 CDT ! Show up: 11/18/2010 17:12:00 CDT Subject: Results Notification Actions: Notify patient of results Due Date/Time: 11/18/2010 17:12:00 CDT Source: [facility] [employer] Document Id: [id number] Electronically signed by Conversion, [facility] Transportation Planner [id number] at 10/05/2016 3:46 PM CDT Miscellaneous - Conversion, Historical Provider Ser - 11/18/2010 1:31 PM CDT Pediatric School Leader Intake/History Pediatric School Leader Intake/History Entered On: 11/18/2010 13:32 CDT Performed [...] RN; Reviewed Date: 11/18/2010 13:30 CDT Source: [facility] [employer] Document Id: [id number] CDT!22 documented in this encounter Plan of Treatment Not on filedocumented as of this encounter Visit Diagnoses Not on filedocumented in this encounter
--- OUTSIDE RECORDS SUMMARY | 2022-02-01 12:02 | XMS_ITS | Encounter Summary ---
:1995 Author Organization [facility] Address [address] [place] [address] Care Team Providers Name Role Phone Unavailable Primary Care Provider Unavailable Encounter Details Date Type Department Care Team Description 04/29/2013 Hospital Encounter HX [facility] Stephen Sarabia Jr., M.D. [address] [place], [place] [phone] (Wo rk) Social History Tobacco Use Types Packs/Day Years Used Date Smoking Tobacco: Never Assessed Sex Assigned at Date Recorded Female 07/27/2019 2:28 PM CDT documented as of this encounter Progress Notes Delicia Treviño, C.O.T. - 04/29/2013 11:20 AM CST [facility] Exam [facility] Exam Entered On: 04/29/2013 11:27 PRINCIPAL WEB DEVELOPER Performed On: 04/29/2013 11:20 PRINCIPAL WEB DEVELOPER by DELICIA TREVIÑO Chief Complaint and History Pain Symptoms : No Smoking Status : Never smoker Comment : Pt here for complete eye exam No [facility] co[facility] Family History Reviewed : 04/29/2013 PRINCIPAL WEB DEVELOPER DELICIA TREVIÑO - 04/29/2013 11:20 PRINCIPAL WEB DEVELOPER Optometry Exam Familty History Grid Cancer : Sibling Diabetes : Grandparents DELICIA TREVIÑO - 04/29/2013 11:20 PRINCIPAL WEB DEVELOPER Vision Testing Right Eye Vision Testing : Without correction, 20/20, -1 Left Eye Vision Testing : Without correction, 20/20, -1 Both Eyes Vision Testing : Without correction, 20/20, -1 DELICIA TREVIÑO - 04/29/2013 11:20 PRINCIPAL WEB DEVELOPER Refraction Right Eye Manifest Grid Date : 04/22/2012 PRINCIPAL WEB DEVELOPER 04/29/2013 PRINCIPAL WEB DEVELOPER Performed by : Tech Tech Sphere : 0 -0.25 Visual Acuity Distance : 20/20 20/20 DELICIA TREVIÑO - 04/29/2013 11:20 PRINCIPAL WEB DEVELOPER DELICIA TREVIÑO - 04/29/2013 11:20 PRINCIPAL WEB DEVELOPER Left Eye Manifest Grid Date : 04/22/2012 PRINCIPAL WEB DEVELOPER 04/29/2013 PRINCIPAL WEB DEVELOPER Performed by : Tech Tech Sphere : 0 -0.25 Visual Acuity Distance : 20/20 20/20 DELICIA TREVIÑO - 04/29/2013 11:20 PRINCIPAL WEB DEVELOPER DELICIA TREVIÑO - 04/29/2013 11:20 PRINCIPAL WEB DEVELOPER Ocular Testing EOMS : Normal Pupils : PERRLA Cover Test : Normal Comment : méndez full DELICIA TREVIÑO - 04/29/2013 11:20 PRINCIPAL WEB DEVELOPER Intraoccular Pressures Intraoccular Pressures Grid Date : 04/22/2012 PRINCIPAL WEB DEVELOPER 04/22/2012 PRINCIPAL WEB DEVELOPER 04/29/2013 PRINCIPAL WEB DEVELOPER 04/29/2013 PRINCIPAL WEB DEVELOPER Eye : RE LE RE LE Applanation : 15 15 15 15 Eye Drops : Fluress Fluress Fluress Fluress DELICIA TREVIÑO - 04/29/2013 11:20 PRINCIPAL WEB DEVELOPER DELICIA TREVIÑO - 04/29/2013 11:20 PRINCIPAL WEB DEVELOPER DELICIA TREVIÑO - 04/29/2013 11:20 PRINCIPAL WEB DEVELOPER DELICIA TREVIÑO - 04/29/2013 11:20 PRINCIPAL WEB DEVELOPER Eye Drops Exam Date of Last Eye Exam : 04/29/2013 PRINCIPAL WEB DEVELOPER Phenylephrine 2.5% Eye Drops Eye : Both eyes Phenylephrine 2.5% Eye Drops Amount : One drop Phenylephrine 2.5% Eye Drops Time : 11:26 PRINCIPAL WEB DEVELOPER Tropicamide 1% Eye Drops Eye : Both eyes Tropicamide 1% Eye Drops Amount : One drop Tropicamide 1% Eye Drops Time : 11:26 PRINCIPAL WEB DEVELOPER DELICIA TREVIÑO - 04/29/2013 11:20 PRINCIPAL WEB DEVELOPER Ocular Health Ocular Health Ext Rt Eye Grid Ext Rt Eye - Lids/Lashes : Normal Ext Rt Eye - Conjunctiva : Normal Ext Rt Eye - Cornea : Normal Ext Rt Eye - A/C : Normal Ext Rt Eye - Iris : Normal Ext Rt Eye - Lens : Normal STEPHEN FIGUEROA MD - 04/29/2013 11:43 PRINCIPAL WEB DEVELOPER Ocular Health Ext Lt Eye Grid Ext Lt Eye - Lids/Lashes : Normal Ext Lt Eye - Conjunctiva : Normal Ext Lt Eye - Cornea : Normal Ext Lt Eye - A/C : Normal Ext Lt Eye - Iris : Normal Ext Lt Eye - Lens : Normal STEPHEN FIGUEROA MD - 04/29/2013 11:43 PRINCIPAL WEB DEVELOPER Ocular Health Int Rt Eye Grid Int [...] Normal STEPHEN FIGUEROA MD - 04/29/2013 11:43 PRINCIPAL WEB DEVELOPER Ocular Health Int Lt Eye Grid Int [...] Normal STEPHEN FIGUEROA MD - 04/29/2013 11:43 PRINCIPAL WEB DEVELOPER Assessment Findings : Myopia Plan : Return for complete exam in one year or PRN STEPHEN FIGUEROA MD - 04/29/2013 11:43 PRINCIPAL WEB DEVELOPER Source: [facility] POWERCHART Document Id: [id number] PRINCIPAL WEB DEVELOPER!36 CIPAL WEB DEVELOPER documented in this encounter Miscellaneous Notes Miscellaneous - Stephen Figueroa M.D. - 04/29/2013 5:24 PM CST Ambulatory Patient Summary [address] [address] Visit Information Name: CHANDRIKA ESQUEDA [facility] Number: [id number] Current Date: 04/29/2013 17:24:08 Physicians [...] Active 02/15/2011 06/02/11 fructose / per [facility] Allergic reaction to drug, not elsewhere classified Active 06/03/2011 06/03/11 amoxicillin Your Upcoming Appointments Date Time Location Reason Provider No Appointments found Attention: Contact your local Clinic if further appointment detail needed. Your Goals/Additional instructions: Source: [facility] POWERCHART Document Id: [id number] CIPAL WEB DEVELOPER Miscellaneous - Stephen Figueroa M.D. - 04/29/2013 5:24 PM CST Ambulatory Depart Summary [address] [address] Visit Information Name: CHANDRIKA ESQUEDA [facility] Number: [id number] Visit Date: 04/29/2013 17:24:06 Attending [...] in case of emergency. Additional Information: Source: [facility] POWERCHART Document Id: [id number] CIPAL WEB DEVELOPER documented in this encounter Plan of Treatment Not on filedocumented as of this encounter Visit Diagnoses Not on filedocumented in this encounter
--- OUTSIDE RECORDS SUMMARY | 2022-02-01 12:02 | XMS_ITS | Encounter Summary ---
:1995 Author Organization [facility] [place] [address] Care Team Providers Name Role Phone Unavailable Primary Care Provider Unavailable Encounter Details Date Type Department Care Team Description 12/23/2011 Hospital Encounter HX [facility] Zaynab Eli M.D. [address] [place], [place] [phone] (Wo rk) Social History [...]
--- OUTSIDE RECORDS SUMMARY | 2022-02-01 12:02 | XMS_ITS | Encounter Summary ---
:1995 Author Organization [facility] [place] [address] Care Team Providers Name Role Phone Unavailable Primary Care Provider Unavailable Encounter Details Date Type Department Care Team Description 09/19/2013 Hospital Encounter HX [facility] FB INTERNMED Jaycob Sood M.D. [address] [place] [phone] (Wo rk) Social History Tobacco [...] Sood M.D. - 09/19/2013 3:19 PM CDT [id number] Patient presents today with a couple-day notation [...] she is going to work at a [employer], new, starting tomorrow. She has not had fever, chills or sweats. She does sound congested. She is worried about going to work tomorrow sick. MEDICATIONS Per [facility] EMR. ALLERGIES Per [facility] EMR. SYSTEMS REVIEW Review of systems in all areas except as mentioned above is negative. PREVENTIVE SERVICES: Per [facility] EMR. Handwashing done prior to patient contact. PAST MEDICAL/SURGICAL HISTORY Per [facility] EMR. VITAL SIGNS Per [facility] EMR. PHYSICAL EXAMINATION She has a little [...] SOOD MD On: 09/20/2013 08:05 AM Source: [facility] MHSDOLBEYNONRADSYS Document Id: [id number] documented in this encounter Miscellaneous Notes Miscellaneous - Frankie Sood M.D. - 09/20/2013 10:48 AM CDT Results Notification From: FRANKIE SOOD MD Sent: 09/20/2013 10:48:06 CDT ! Show up: 09/20/2013 10:48:06 CDT Subject: Results Notification Actions: Notify patient of results Reminder Comments: negative Results: Date Result Type Ind Result Name MBO Review Rapid Strep Confirmation Source: [facility] POWERCHART Document Id: [id number] Electronically signed by Taryn [facility] Coding File Clerk [id number] at 09/29/2016 8:12 PM CDT Frankie Pichardo [...] Name MBO Review Rapid Strep A Source: [facility] AugmentWare Document Id: [id number] Electronically signed by Conversion, [facility] Coding File Clerk [id number] at 09/29/2016 8:12 PM CDT Frankie Pichardo M.D. - 09/19/2013 3:35 PM CDT Ambulatory Patient Summary [address] [id number] Visit Information Name: CHANDRIKA ESQUEDA JUNIOR [facility] Number: [id number] Current Date: 09/19/2013 15:35:24 Physicians [...] day x 3 day(s) New Routed to [address] [place] [id number] norgestimate-ethinyl estradiol (Tri-Sprintec oral tablet) 1 Tablet(s), [...] 02/15/2011 06/02/11 fructose / per [facility] Allergic reaction to drug, not elsewhere classified Active 06/03/2011 06/03/11 amoxicillin Your Upcoming Appointments Date Time Location Reason Provider No Appointments found Attention: Contact your local Clinic if further appointment detail needed. Your Goals/Additional instructions: Source: [facility] POWERCHART Document Id: [id number] Miscellaneous - Frankie Sood M.D. - 09/19/2013 3:35 PM CDT Ambulatory Discharge Medication List [address] [place], [place] [address] [place] [id number] Visit Information Name: CHANDRIKA ESQUEDA JUNIOR [facility] Number: [id number] Visit Date: 09/19/2013 15:35:22 Attending [...] day x 3 day(s) New Routed to [place] [address] [address] [place], [place] [id number] norgestimate-ethinyl estradiol (Tri-Sprintec oral tablet) 1 Tablet(s), [...] MD Signed On:19-SEP-2013 15:26:17 Additional Information: Source: [facility] POWERCHART Document Id: [id number] Miscellaneous - Shahida Arreola L.P.NJoshua - 09/19/2013 3:24 PM CDT Adult Weight Loss Consultant Intake/History Adult Weight Loss Consultant Intake/History Entered On: 09/19/2013 15:26 CDT [...] Given By : Patient Languages : British SHAHIDA ARREOLA [address] MARKER - 09/19/2013 15:24 CDT Subjective Pain Symptoms : No [address]AHIDA [address] MARKER - 09/19/2013 15:24 CDT Dependent Habits Tobacco Use/Currently Using : No Exposure to Tobacco Smoke : Other: Never Smoking Status : Never smoker SHAHIDA ARREOLA [facility] - 09/19/2013 15:24 CDT Tobacco Use Grid Last Use : never [address]AHIDA [address] MARKER - 09/19/2013 15:24 CDT Caffeine Use Grid Caffeine Use : Current Type : Chocolate, Soft drinks Frequency : Occasionally SHAHIDA [address] MARKER - 09/19/2013 15:24 CDT Recreational Drug Use Grid Drug Use : None SHAHIDA ARREOLA [facility] - 09/19/2013 15:24 CDT Source: [facility] Space Star TechnologyCHART Document Id: [id number] CDT!34 documented in this encounter Plan of [...] Strep A Screen (09/19/2013 3:40 PM CDT) [facility] gist Method Time Signature HXRapid Strep POWERCHART Confirmation HXFinal Negative POWERCHART Specimen Anatomical Collection Method Collection Time Receive d Time (Source) Location / / Volume Laterality Throat 09/19/2013 3:40 PM 4 3:40 CDT PM CDT Frankie Sood M.D. LAB MICROBIOLOGY - GENERAL O RDERABLES Performing Organization Address City/State/ZIP Code Phon e Number POWERCHART Rapid Strep A Screen (09/19/2013 3:40 PM CDT) [facility] gist Method Time Signature HXStrep A [...]
--- OUTSIDE RECORDS SUMMARY | 2022-02-01 12:02 | XMS_ITS | Encounter Summary ---
:1995 Author Organization [facility] [place] [address] Care Team Providers Name Role Phone Unavailable Primary Care Provider Unavailable Encounter Details Date Type Department Care Team Description 12/23/2011 Hospital Encounter HX [facility] FB [facility] Zaynab Peterson M.D. [address] [place], [place] [phone] (Wo rk) Social History [...] amparo, Campylobacter, or Aeromonas. Test Performed by: [facility] [place] [address] Executive Receptionist: Ayad sow III, M.D. Historical Provider LAB HISTORICAL ORDERS Performing Organization Address [facility] Phon e Number POWERCHART C. difficile Toxin, F (12/23/2011 9:02 AM CDT) athologist Signature C. difficile Negative POWERCHART Toxin, F Specimen (Source) Anatomical Collection Method Collection Time Re ceived Time Location / / Volume Laterality 12/23/2011 9:02 AM CDT Narrative POWERCHART - 12/27/2011 7:40 AM CDT Laboratory developed test. Test Performed by: [facility] [place] [address] Executive Receptionist: Ayad sow III, M.D. Alicja Olivares M.D. LAB MICROBIOLOGY - GENERAL O RDERABLES Performing Organization Address [facility] Phon e Number POWERCHART HX-C diff Srce (12/23/2011 9:02 AM CDT) athologist Signature HXC diff Stool POWERCHART [facility] Specimen (Source) Anatomical Collection Method Collection Time Re ceived Time Location / / Volume Laterality 12/23/2011 9:02 AM CDT Alicja Olivares M.D. LAB HISTORICAL ORDERS Performing Organization Address [facility] Phon e Number POWERCHART documented in this encounter Visit Diagnoses Not on filedocumented in this encounter
--- OUTSIDE RECORDS SUMMARY | 2022-02-01 12:02 | XMS_ITS | Encounter Summary ---
:[address] [facility] [address] Care Team Providers Name Role Phone Unavailable [...] 01/26/2012 10:19 AM C DT Growth Chart: [facility] (Girls, 2-20 Years) documented in this encounter [...] Electronically signed by: ?? Anmol Whitley MD [id number] 23-Feb-2012 14:37 ?Harris Stevens MD [phone] 23-Feb-2012 14:37 Narrative 02/23/2012 2:37 PM CDT [...] millicurie Electronically signed by: Anmol Whitley MD [phone] 23-Feb-2012 14:37 Harris Stevens MD [phone] 23-Feb-2012 14:37 Alicja Olivares M.D. IMG NM [...] Electronically signed by: ?? Purnima Cerda MD [phone] 27-Jan-2012 11:49 ?Jean Carlos Fine MD. ??27-Jan-2012 [...] seen. Electronically signed by: Purnima Cerda MD [phone] 27-Jan-2012 11:49 Jean Carlos Fine MD. [id number] 27-Jan-2012 11:49 Alicja Olivares M.D. IMG US [...] CBC with Differential (01/26/2012 11:52 AM CDT) [facility] Method Time Signature Hemoglobin 13.0 12.0 - [facility] 15.5 G/DL [facility] Hematocrit 39.4 34.9 - [facility] 44.5 % LAB[facility]ATORIES - [facility] RBC Distrib 12.4 11.9 - [facility] Width 15.5 % [facility] Platelet Count 219 150 - 450 [facility] X10(9)/L LABORATORIES [facility] Leukocytes 5.6 3.5 - [facility] 10.5 LABORATORIES - X10(9)/L [facility] Neutrophils 3.69 1.70 - [facility] 7.00 LABORATORIES - X10(9)/L [facility] Lymphocytes 1.55 0.90 - [facility] 2.90 LABORATORIES - X10(9)/L [facility] Monocytes 0.23 (L) 0.30 - [facility] 0.90 LABORATORIES - X10(9)/L [facility] Erythrocytes 4.39 3.90 - [facility] 5.03 LABORATORIES - X10(12)/L [facility] MCV 89.7 81.6 - [facility] 98.3 FL LAB[facility]ATORIES - [facility] Eosinophils 0.08 0.05 - [facility] 0.50 LABORATORIES - X10(9)/L [facility] Basophils 0.01 0.00 - [facility] 0.30 LABORATORIES - X10(9)/L [facility] Specimen Anatomical Collection Method Collection Time Receive d Time (Source) Location / / Volume Laterality 01/26/2012 11:52 01/26/2012 AM CDT 11:52 AM CDT Alicja Olivares M.D. LAB BLOOD ADD-ON Performing Organization Address City/State/ZIP Code Phon e Number [facility] LABORATORIES - [address] [place] [address] 05 [facility] Glucose, Fasting (01/26/2012 11:52 AM CDT) P athologist Signature Last Intake 3 HR [facility] Glucose, P 87 70 - 100 [facility] MG/DL [facility] - [facility] Specimen Anatomical Collection Method Collection Time Receive d Time (Source) Location / / Volume Laterality 01/26/2012 11:52 01/26/2012 AM CDT 11:52 AM CDT Alicja Olivares M.D. LAB BLOOD NON ADD-ON Performing Organization Address City/State/[facility] Code Phon e Number [facility] LABORATORIES - [address] [place] [address] 05 [facility] GGT (Gamma-Glutamyltransferase) (01/26/2012 11:51 AM CDT) Component Value Ref Test Analysis Performed At Patholo gist Range Method Time Signature Gamma 12 6 - 29 [facility] Glutamyltransferase U/L LABORATORI ES - (GGT), S [facility] Specimen Anatomical Collection Method Collection Time Receive d Time (Source) Location / / Volume Laterality 01/26/2012 11:51 01/26/2012 AM CDT 11:51 AM CDT Alicja Olivares M.D. LAB BLOOD ADD-ON Performing Organization Address City/State/ZIP Code Phon e Number [facility] LABORATORIES - [address] [address] 05 [facility] Bilirubin, Total (01/26/2012 11:51 AM CDT) athologist Signature Bilirubin, 0.3 0.1 - 1.0 [facility] Total, S MG/DL [facility] Specimen Anatomical Collection Method Collection Time Receive d Time (Source) Location / / Volume Laterality 01/26/2012 11:51 01/26/2012 AM CDT 11:51 AM CDT Alicja Olivares M.D. LAB BLOOD ADD-ON Performing Organization Address City/[facility]/ZIP Code Phon e Number [facility] - [address] [address] 05 [facility] Amylase, Total (01/26/2012 11:51 AM CDT) athologist Signature Amylase, 63 21 - 110 [facility] Total, S U/L [facility] Specimen Anatomical Collection Method Collection Time Receive d Time (Source) Location / / Volume Laterality 01/26/2012 11:51 01/26/2012 AM CDT 11:51 AM CDT Alicja Olivares M.D. LAB BLOOD ADD-ON Performing Organization Address City/[facility]/ZIP Code Phon e Number [facility] - [address] [address] 05 [facility] Chloride (01/26/2012 11:51 AM CDT) athologist Signature Chloride, S 105 102 - 112 [facility] MMOL/L [facility] Specimen Anatomical Collection Method Collection Time Receive d Time (Source) Location / / Volume Laterality 01/26/2012 11:51 01/26/2012 AM CDT 11:51 AM CDT Alicja Olivares M.D. LAB BLOOD ADD-ON Performing Organization Address City/[facility]/ZIP Code Phon e Number [facility] - [address] [address] 05 [facility] Lipase (01/26/2012 11:51 AM CDT) athologist Signature Lipase, S 29 10 - 73 U/L [facility] Specimen Anatomical Collection Method Collection Time Receive d Time (Source) Location / / Volume Laterality 01/26/2012 11:51 01/26/2012 AM CDT 11:51 AM CDT Ailcja Olivares M.D. LAB BLOOD ADD-ON Performing Organization Address City/[facility]/ZIP Code Phon e Number [facility] LABORATORIES - [address] [address] 05 [facility] ALT (Alanine Aminotransferase) (01/26/2012 11:51 AM CDT) [facility] gist Method Time Signature Alanine 11 7 - 45 [facility] Aminotransferase U/L LABORATORIES - (ALT), [facility] Specimen Anatomical Collection Method Collection Time Receive d Time (Source) Location / / Volume Laterality 01/26/2012 11:51 01/26/2012 AM CDT 11:51 AM CDT Alicja Olivares M.D. LAB BLOOD ADD-ON Performing Organization Address City/[facility]/ZIP Code Phon e Number [facility] LABORATORIES - [address] [address] 05 [facility] Ammonia Level, Plasma (01/26/2012 11:51 AM CDT) P athologist Signature Ammonia, B <10 <50 MCG [facility] N/DL [facility]ATORIES - [facility] Specimen Anatomical Collection Method Collection Time Receive d Time (Source) Location / / Volume Laterality 01/26/2012 11:51 01/26/2012 AM CDT 11:51 AM CDT Alicja Olivares M.D. LAB BLOOD NON ADD-ON Performing Organization Address City/[facility]/ZIP Code Phon e Number [facility] LABORATORIES - [address] [address] 05 [facility] T4 (Thyroxine), Free (01/26/2012 11:51 AM CDT) [facility] gist Method Time Signature T4 1.3 SeeComment [facility] (Thyroxine), NG/DL LABORATORIES - Free, [facility] Comment: Reference Range: ? 0.8-1.8 ? Elevated values are seen in ? patients on thyroxine therapy. ? Specimen Anatomical Collection Method Collection Time Receive d Time (Source) Location / / Volume Laterality 01/26/2012 11:51 01/26/2012 AM CDT 11:51 AM CDT Alicja Olivares M.D. LAB BLOOD ADD-ON Performing Organization Address City/State/ZIP Code Phon e Number [facility] LABORATORIES - [address] [address] 05 [facility] Potassium (01/26/2012 11:51 AM CDT) P athologist Signature Potassium, S 4.7 3.6 - 5.2 [facility] MMOL/L [facility] Specimen Anatomical Collection Method Collection Time Receive d Time (Source) Location / / Volume Laterality 01/26/2012 11:51 01/26/2012 AM CDT 11:51 AM CDT Alicja Olivares M.D. LAB BLOOD ADD-ON Performing Organization Address City/[facility]/ZIP Code Phon e Number [facility] LABORATORIES - [address] [address] 05 [facility] Sodium (01/26/2012 11:51 AM CDT) P athologist Signature Sodium, S 141 135 - 145 [facility] MMOL/L [facility] Specimen Anatomical Collection Method Collection Time Receive d Time (Source) Location / / Volume Laterality 01/26/2012 11:51 01/26/2012 AM CDT 11:51 AM CDT Alicja Olivares M.D. LAB BLOOD ADD-ON Performing Organization Address City/State/ZIP Code Phon e Number [facility] LABORATORIES - [address] [address] [facility] Creatinine with Estimated GFR (MDRD) (01/26/2012 11:51 AM CDT) P athologist Signature Creatinine 0.8 0.6 - 1.1 [facility] MG/DL [facility] Specimen Anatomical Collection Method Collection Time Receive d Time (Source) Location / / Volume Laterality 01/26/2012 11:51 01/26/2012 AM CDT 11:51 AM CDT Alicja Olivares M.D. LAB BLOOD ADD-ON Performing Organization Address City/[facility]/ZIP Code Phon e Number [facility] LABORATORIES - [address] [address] 05 [facility] Sedimentation Rate (01/26/2012 11:51 AM CDT) Patholo gist Method Time Signature Sedimentation 6 0 - 29 [facility] Rate, B MM/1 H [facility] Specimen Anatomical Collection Method Collection Time Receive d Time (Source) Location / / Volume Laterality 01/26/2012 11:51 01/26/2012 AM CDT 11:51 AM CDT Alicja Olivares M.D. LAB BLOOD ADD-ON Performing Organization Address City/State/ZIP Code Phon e Number [facility] LABORATORIES - [address] [address] 05 [facility] AST (Aspartate Aminotransferase) (01/26/2012 11:51 AM CDT) athologist Signature AST, Total, S 16 8 - 43 U/L [facility] Specimen Anatomical Collection Method Collection Time Receive d Time (Source) Location / / Volume Laterality 01/26/2012 11:51 01/26/2012 AM CDT 11:51 AM CDT Alicja Olivares M.D. LAB BLOOD ADD-ON Performing Organization Address City/State/ZIP Code Phon e Number [facility] LABORATORIES - [address] [place] [address] 05 [facility] BUN (Blood Urea Nitrogen) (01/26/2012 11:51 AM CDT) P athologist Signature BUN (Blood 12 7 - 20 [facility] Urea MG/DL LABORATORIES - Nitrogen), S [facility] Specimen Anatomical Collection Method Collection Time Receive d Time (Source) Location / / Volume Laterality 01/26/2012 11:51 01/26/2012 AM CDT 11:51 AM CDT Alicja Olivares M.D. LAB BLOOD ADD-ON Performing Organization Address City/State/ZIP Code Phon e Number [facility] - [address] [address] [facility] S-TSH (Thyroid-Stimulating Hormone - Sensitive) (01/26/2012 11:51 AM CDT) P athologist Signature TSH, Sensitive 1.0 0.3 - 5.0 [facility] MIU/L [facility] Specimen Anatomical Collection Method Collection Time Receive d Time (Source) Location / / Volume Laterality 01/26/2012 11:51 01/26/2012 AM CDT 11:51 AM CDT Alicja Olivares M.D. LAB BLOOD ADD-ON Performing Organization Address City/State/ZIP Code Phon e Number [facility] LABORATORIES - [address] [place], [place] [address] 05 [facility] CRP (C-Reactive Protein) (01/26/2012 11:51 AM CDT) P athologist Signature C-Reactive <3.0 <=8.0 MG/L [facility] Protein (CRP), LABORATORIES - S [facility] Specimen Anatomical Collection Method Collection Time Receive d Time (Source) Location / / Volume Laterality 01/26/2012 11:51 01/26/2012 AM CDT 11:51 AM CDT Alicja Olivares M.D. LAB BLOOD ADD-ON Performing Organization Address City/[facility]/ZIP Code Phon e Number [facility] LABORATORIES - [address] [place] [address] 05 [facility] Bicarbonate (01/26/2012 11:51 AM CDT) P athologist Signature HX 27 22 - 29 [facility] Bicarbonate, MMOL/L LABORATORIES - P/S [facility] Specimen Anatomical Collection Method Collection Time Receive d Time (Source) Location / / Volume Laterality 01/26/2012 11:51 01/26/2012 AM CDT 11:51 AM CDT Alicja Olivares M.D. LAB BLOOD ADD-ON Performing Organization Address City/State/ZIP Code Phon e Number [facility] LABORATORIES - [address] [place] [address] 05 [facility] Bilirubin, Direct (01/26/2012 11:51 AM CDT) P athologist Signature Bilirubin, 0.1 0.0 - 0.3 [facility] Direct, S MG/DL [facility]ATORIES - [facility] Specimen Anatomical Collection Method Collection Time Receive d Time (Source) Location / / Volume Laterality 01/26/2012 11:51 01/26/2012 AM CDT 11:51 AM CDT Alicja Olivares M.D. LAB BLOOD ADD-ON Performing Organization Address City/State/ZIP Code Phon e Number [facility] LABORATORIES - [address] [place], [place] [address] [facility] (ABNORMAL) Alkaline Phosphatase (01/26/2012 11:51 AM CDT) Analysis Performed At Patho logist Time Signature Alkaline 50 (L) 52 - 144 [facility] Phosphatase, S U/L LABORATORIES - [facility] Specimen Anatomical Collection Method Collection Time Receive d Time (Source) Location / / Volume Laterality 01/26/2012 11:51 01/26/2012 AM CDT 11:51 AM CDT Alicja Olivares M.D. LAB BLOOD ADD-ON Performing Organization Address City/State/ZIP Code Phon e Number [facility] LABORATORIES - [address] [place] [address] 05 [facility] Hx general Pathology Report (01/21/2012 11:34 AM CDT) Specimen Anatomical Collection Method Collection Time Receive d Time (Source) Location / / Volume Laterality 01/21/2012 11:34 01/21/2012 AM CDT 11:34 AM CDT Narrative [facility] - 01/21/2012 11:34 AM CDT ??01/21/2012 General Biopsy ? ([id number]) ? Requested By: Alicja Olivares M.D. ? ?[phone] ? Additional Physician: ??Rafaela Hughes [id number] ? SLIDE DISPOSITION: ? DIAGNOSIS: ?? A. [...] ? 01/22/2012 15:24 Interpreted by: Dinorah Corral.B.S. [id number] Report electronically signed by Bruna CorralB.S. Transcribed by: valerie 01/22/2012 14:16:11 ? TISSUE DESCRIPTION: [id number] A. Received in formalin labeled with th e patient's name and medical record number as [id number] and is label ed as duodenum-second part are two pink-henry irregular soft tissues , each at 0.3 cm in greatest dimension. Specimens are submitted en t jesús in cassette A1. ?? B. Received in formalin labeled with th e patient's name and medical record number as [id number] and is label ed as stomach-antrum is a 0.5 x 0.2 x 0.1 cm pale henry irregular s oft tissue. Specimen is submitted en toto in cassette B1. ?? C. Received in formalin labeled with th e patient's name and medical record number as [id number] and is label ed as esophagus-lower third [...] ? Procedure Note 07/25/2017 01/21/2012 General Biopsy ([id number]) Requested By: Alicja Olivares M.D. [phone] Additional Physician: Faustina Dee M.D. [id number] SLIDE DISPOSITION: DIAGNOSIS: A. Duodenum, 2nd part, [...] identified. 01/22/2012 15:24 Interpreted by: Dinorah Corral.B.S. [id number] Report electronically signed by Bruna CorralB.S. Transcribed by: valerie 01/22/2012 14:16:11 TISSUE DESCRIPTION: [id number] A. Received in formalin labeled with th e patient's name and medical record number as [id number] and is label ed as duodenum-second part are two pink-henry irregular soft tissues , each at 0.3 cm in greatest dimension. Specimens are submitted en t jesús in cassette A1. B. Received in formalin labeled with th e patient's name and medical record number as [id number] and is label ed as stomach-antrum is a 0.5 x 0.2 x 0.1 cm pale henry irregular s oft tissue. Specimen is submitted en toto in cassette B1. C. Received in formalin labeled with th e patient's name and medical record number as [id number] and is label ed as esophagus-lower third [...] Organization Address City/State/ZIP Code Phon e Number [facility] - [address] Hx general Pathology Report (01/21/2012 11:32 AM CDT) Specimen Anatomical Collection Method Collection Time Receive d Time (Source) Location / / Volume Laterality 01/21/2012 11:32 01/21/2012 AM CDT 11:32 AM CDT Narrative [facility] - [facility] - 01/21/2012 11:32 AM CDT ??01/21/2012 General Biopsy ? ([id number]) ? Requested By: Alicja Olivares M.D. ? ?[phone] ? Additional Physician: ??Rafaela Hughes [id number] ? SLIDE DISPOSITION: ? DIAGNOSIS: ?? A. ??Ileum, terminal ileum, endoscopic biopsy: ??Normal ileal mucosa. ?? B. ??Colon, random, endoscopic biopsy: ??Normal colonic mucosa. ??No evidence of collagenous or lymphocytic colitis. ? 01/22/2012 11:09 Interpreted by: Bruna CorralB.S. [id number] Report electronically signed by Bruna CorarlB.S. Transcribed by: valerie 01/22/2012 10:21:22 ? TISSUE DESCRIPTION: [id number] A1B1 A. Received in formalin labeled with th e patient's name and medical record number as [id number] and is label ed as ileum-terminal ileum are two pale henry irregular soft tissues , ranging from 0.3-0.4 cm in greatest dimension. Specimens are submi tted en toto in cassette A1. ?? B. Received in formalin labeled with th e patient's name and medical record number as [id number] and is label ed as colon-random are five pink-henry irregular soft tissues, rangin g from 0.2-0.4 cm in greatest dimension. ??Specimens are submitted en toto in cassette B1. ?? Part A: ??Ileum, Terminal Ileum, endosc opic biopsy ?1 Term Ileum ?? Part B: ??Colon, Random, endoscopic bio psy ?1 Random ?? GI Path ? Procedure Note 07/25/2017 01/21/2012 General Biopsy ([id number]) Requested By: Alicja Olivares M.D. [phone] Additional Physician: Faustina Dee M.D. [id number] SLIDE DISPOSITION: DIAGNOSIS: A. Ileum, terminal ileum, endoscopic bi opsy: Normal ileal mucosa. B. Colon, random, endoscopic biopsy: No rmal colonic mucosa. No evidence of collagenous or lymphocytic colitis. 01/22/2012 11:09 Interpreted by: Bruna CorralB.S. [id number] Report electronically signed by Bruna CorralB.S. Transcribed by: valerie 01/22/2012 10:21:22 TISSUE DESCRIPTION: [id number] A1B1 A. Received in formalin labeled with th e patient's name and medical record number as [id number] and is label ed as ileum-terminal ileum are two pale henry irregular soft tissues , ranging from 0.3-0.4 cm in greatest dimension. Specimens are submi tted en toto in cassette A1. B. Received in formalin labeled with th e patient's name and medical record number as [id number] and is label ed as colon-random are five pink-henry irregular soft tissues, rangin g from 0.2-0.4 cm in greatest dimension. Specimens are submitted en t jesús in cassette B1. Part A: Ileum, Terminal Ileum, endoscop ic biopsy 1 Term Ileum Part B: Colon, Random, endoscopic biops y 1 Random GI Path Alicja Olivares M.D. LAB PATHOLOGY/CYTOLOGY ORDER KENYA Performing Organization Address City/[facility] Phon e Number [facility] LABORATORIES - [address] ALT (Alanine Aminotransferase) (01/21/2012 10:28 AM CDT) Patholo gist Method Time Signature Alanine 12 7 - 45 [facility] Aminotransferase U/L LABORATORIES - (ALT), [facility] Specimen Anatomical Collection Method Collection Time Receive d Time (Source) Location / / Volume Laterality 01/21/2012 10:28 01/21/2012 AM CDT 10:28 AM CDT Faustina Dee M.D. LAB BLOOD ADD-ON Performing Organization Address City/[facility] Phon e Number [facility] LABORATORIES - [address] CRP (C-Reactive Protein) (01/21/2012 10:28 AM CDT) P athologist Signature C-Reactive <3.0 <=8.0 MG/L [facility] Protein (CRP), LABORATORIES - [facility] Specimen Anatomical Collection Method Collection Time Receive d Time (Source) Location / / Volume Laterality 01/21/2012 10:28 01/21/2012 AM CDT 10:28 AM CDT Faustina Dee M.D. LAB BLOOD ADD-ON Performing Organization Address City/[facility] Phon e Number [facility] LABORATORIES - [address] (ABNORMAL) CBC with Differential (01/21/2012 10:28 AM CDT) [facility] Method Time Signature Hemoglobin 13.1 12.0 - [facility] 15.5 G/DL LABORATORIES - [facility] Hematocrit 39.9 34.9 - [facility] 44.5 % LABORATORIES - [facility] RBC Distrib 12.6 11.9 - [facility] Width 15.5 % LABORATORIES - [facility] Platelet Count 197 150 - 450 [facility] X10(9)/L LABORATORIES - [facility] Lymphocytes 1.33 0.90 - [facility] 2.90 LABORATORIES - X10(9)/L [facility] Monocytes 0.22 (L) 0.30 - [facility] 0.90 LABORATORIES - X10(9)/L [facility] Erythrocytes 4.48 3.90 - [facility] 5.03 LABORATORIES - X10(12)/L [facility] MCV 89.1 81.6 - [facility] 98.3 FL LABORATORIES - [facility] Leukocytes 4.8 3.5 - [facility] 10.5 LABORATORIES - X10(9)/L [facility] Neutrophils 3.22 1.70 - [facility] 7.00 LABORATORIES - X10(9)/L [facility] Eosinophils 0.04 (L) 0.05 - [facility] 0.50 LABORATORIES - X10(9)/L [facility] Basophils 0.00 0.00 - [facility] 0.30 LABORATORIES - X10(9)/L [facility] Specimen Anatomical Collection Method Collection Time Receive d Time (Source) Location / / Volume Laterality 01/21/2012 10:28 01/21/2012 AM CDT 10:28 AM CDT Faustina Dee M.D. LAB BLOOD ADD-ON Performing Organization Address City/State/ZIP Code Phon e Number [facility] LABORATORIES - [address] [place], [place] [address] [facility] Immunoglobulin A (IgA) (01/21/2012 10:28 AM CDT) [facility] Method Time Signature Immunoglobulin A 186 60 - 337 [facility] (IgA), S MG/DL LABORATORIES - [facility] Specimen Anatomical Collection Method Collection Time Receive d Time (Source) Location / / Volume Laterality 01/21/2012 10:28 01/21/2012 AM CDT 10:28 AM CDT Faustina Dee M.D. LAB BLOOD ADD-ON Performing Organization Address City/[facility] Code Phon e Number [facility] LABORATORIES - [address] [place] [address] 05 [facility] Sedimentation Rate (01/21/2012 10:28 AM CDT) Patholo gist Method Time Signature Sedimentation 6 0 - 29 [facility] [address] Rate, B MM/1 H [facility] Specimen Anatomical Collection Method Collection Time Receive d Time (Source) Location / / Volume Laterality 01/21/2012 10:28 01/21/2012 AM CDT 10:28 AM CDT Faustina Dee M.D. LAB BLOOD ADD-ON Performing Organization Address City/State/ZIP Code Phon e Number [facility] [address] [facility] - [address] [address] [facility] AST (Aspartate Aminotransferase) (01/21/2012 10:28 AM CDT) P athologist Signature AST, Total, S 21 8 - 43 U/L [facility] Specimen Anatomical Collection Method Collection Time Receive d Time (Source) Location / / Volume Laterality 01/21/2012 10:28 01/21/2012 AM CDT 10:28 AM CDT Faustina Dee M.D. LAB BLOOD ADD-ON Performing Organization Address City/State/ZIP Code Phon e Number [facility] [address] [facility] - [address] [address] [facility] Bilirubin, Total (01/21/2012 10:28 AM CDT) P athologist Signature Bilirubin, 0.5 0.1 - 1.0 [facility] [address] Total, S MG/DL [facility] Specimen Anatomical Collection Method Collection Time Receive d Time (Source) Location / / Volume Laterality 01/21/2012 10:28 01/21/2012 AM CDT 10:28 AM CDT Faustina Dee M.D. LAB BLOOD ADD-ON Performing Organization Address City/State/ZIP Code Phon e Number [facility] - [address] documented in this encounter Visit Diagnoses Not on filedocumented in this encounter
--- OUTSIDE RECORDS SUMMARY | 2022-02-01 12:02 | XMS_ITS | Encounter Summary ---
:1995 Author Organization [facility] [place] [address] Care Team Providers Name Role Phone Unavailable Primary Care Provider Unavailable Encounter Details Date Type Department Care Team Description 06/02/2011 Hospital Encounter [facility]X [facility] FAMILY[facility] Natalie Bedolla APRN, C.N.P. [address] [place] [phone] (Wo rk) Social History Tobacco Use Types Packs/Day Years Used Date Smoking Tobacco: Never Assessed Sex Assigned at Date Recorded Female 07/27/2019 2:28 PM CDT documented as of this encounter Last Filed Vital Signs Vital Sign Reading Time Taken Comments Blood Pressure 90/60 06/02/2011 3:26 PM TRUCK SAFETY INSPECTOR Pulse 60 06/02/2011 3:26 PM TRUCK SAFETY INSPECTOR Temperature - - Respiratory Rate 16 06/02/2011 3:26 PM TRUCK SAFETY INSPECTOR Oxygen Saturation - - Inhaled Oxygen Concentration - - Weight 60.7 kg (133 lb 14.9 oz) 06/02/2011 3:26 PM TRUCK SAFETY INSPECTOR Height - - Body Mass Index - - documented in this encounter Progress Notes Pricila Bedolla, INES, C.N.P. - 06/02/2011 12:00 AM CST [id number] CHIEF COMPLAINT/ REASON FOR VISIT Sinus congestion [...] not improve SJM/clf Signed Pricila Bedolla, MSN, MEDICAL INSURANCE CLERK, CDE Family Nurse Practitioner Electronically Signed By: PRICILA BEDOLLA CNP On: 06/03/2011 09:32 AM Source: [facility] MHSDOLBEYNONRADSYS Document Id: [id number] K SAFETY INSPECTOR documented in this encounter Miscellaneous Notes Miscellaneous - Pricila Bedolla APRN, C.N.P. 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 - 06/02/2011 3:47 PM CST Ambulatory Depart Summary [address] [address] Visit Information Name: CHANDRIKA ESQUEDA JUNIOR Current Date: 06/02/2011 15:47:18 Attending Provider: PRICILA BEDOLLA [facility] Primary Care Provider: MARGARITA MORROW MD [...] day for 10 Days Additional Information: Source: [employer] Document Id: [id number] K SAFETY INSPECTOR Miscellaneous - Conversion, Historical Provider Ser - 06/02/2011 3:26 PM TRUCK SAFETY INSPECTOR Pediatric Health Services Information Specialist Intake/History Pediatric Health Services Information Specialist Intake/History Entered On: 06/02/2011 15:28 TRUCK SAFETY INSPECTOR Performed On: 06/02/2011 15:26 TRUCK SAFETY INSPECTOR by GEO CHAVIS Intake Chief Complaint : [...] Clinic : 60.75kg GEO CHAVIS 06/02/2011 15:26 TRUCK SAFETY INSPECTOR Subjective Pain Symptoms : Yes GEO CHAVIS 06/02/2011 15:26 TRUCK SAFETY INSPECTOR Pain Pain Assessment Grid Pain 1 Location : Generalized GEO CHAVIS 06/02/2011 15:26 TRUCK SAFETY INSPECTOR Dependent Habits Tobacco Use/Currently Using : No Exposure to Tobacco Smoke : Other: Never Smoking Status : Never smoker GEO CHAVIS 06/02/2011 15:26 TRUCK SAFETY INSPECTOR Allergy Allergies (Active) NKA Estimated Onset Date: Unspecified ; Created By: LORE ALEGRIA RN; Reaction Status: Active; Category: Drug ; Substance: NKA ; Type: Allergy ; Updated By: LORE ALEGRIA RN; Reviewed Date: 06/02/2011 15:25 TRUCK SAFETY INSPECTOR Source: [facility] POWERCHART Document Id: [id number] TRUCK SAFETY INSPECTOR!26 documented in this encounter Plan of Treatment Not on filedocumented as of this encounter Visit Diagnoses Not on filedocumented in this encounter
--- OUTSIDE RECORDS SUMMARY | 2022-02-01 12:02 | XMS_ITS | Encounter Summary ---
:1995 Author Organization [facility] [place] [address] Care Team Providers Name Role Phone Unavailable Primary Care Provider Unavailable Encounter Details Date Type Department Care Team Description 12/01/2011 Hospital Encounter HX [facility] FAMILYPRA Margarita Barr i, M.D. [address] [place] [phone] (Wo rk) Social History Tobacco Use Types [...] Skelton M.D. - 12/01/2011 2:26 PM CDT [id number] CHIEF COMPLAINT/REASON FOR VISIT Not feeling well. [...] MORROW MD On: 12/29/2011 11:08 AM Source: [facility] MHSDOLBEYNONRADSYS Document Id: [id number] documented in this encounter Miscellaneous Notes Miscellaneous - Margarita Skelton M.D. - 12/01/2011 5:16 PM CDT Ambulatory Depart Summary [address] [address] Visit Information Name: CHANDRIKA ESQUEDA Visit Date: [...] your provider for clarification. Additional Information: Source: [facility] POWERCHART Document Id: [id number] Miscellaneous - Margarita Skelton M.D. - 12/01/2011 5:16 PM CDT Ambulatory Patient Summary [address] [address] Visit Information Name: CHANDRIKA ESQUEDA Current Date: [...] 02/15/2011 06/02/11 fructose / per [facility] Allergic reaction to drug, not elsewhere classified Active 06/03/2011 06/03/11 amoxicillin Your Upcoming Appointments Date Time Location Reason Provider No Appointments found Your Goals/Additional instructions: Source: [facility] POWERCHART Document Id: [id number] Miscellaneous - Conversion, Historical Provider Ser - 12/01/2011 2:51 PM CDT Pediatric Behavioral Health Worker Intake/History Pediatric Behavioral Health Worker Intake/History Entered On: 12/01/2011 14:52 CDT Performed [...] CNP; Reviewed Date: 12/01/2011 14:50 CDT Source: [facility] POWERCHART Document Id: [id number] documented in this encounter Plan of Treatment [...] Strep A Screen (12/01/2011 3:24 PM CDT) [facility] [employer] Method Time Signature HXRapid Strep POWERCHART Confirmation HXFinal Negative POWERCHART Specimen Anatomical Collection Method Collection Time Receive d Time (Source) Location / / Volume Laterality Throat 12/01/2011 3:24 PM 2 3:24 CDT PM CDT Margarita Roberts M.D. LAB MICROBIOLOGY - GEN ERAL ORDERABLES Performing Organization Address City/State/ZIP Code Phon e Number POWERCHART Rapid Strep A Screen (12/01/2011 3:24 PM CDT) [facility] [employer] Method Time Signature HXStrep A POWERCHART Screen [...]
--- OUTSIDE RECORDS SUMMARY | 2022-02-01 12:02 | XMS_ITS | Encounter Summary ---
:1995 Author Organization [facility] [place] [address] Care Team Providers Name Role Phone Unavailable [...]
--- OUTSIDE RECORDS SUMMARY | 2022-02-01 12:02 | XMS_ITS | Encounter Summary ---
:1995 Author Organization [facility] [place] [address] Care Team Providers Name Role Phone Unavailable Primary Care Provider Unavailable Encounter Details Date Type Department Care Team Description 04/11/2011 Hospital Encounter HX [facility] FBHB FAMILYPRA Brandin Christian P.A.-C. [address] [place] [phone] (Wo rk) Social History Tobacco Use Types Packs/Day Years Used Date Smoking Tobacco: Never Assessed Sex Assigned at Date Recorded Female 07/27/2019 2:28 PM CDT documented as of this encounter Progress Notes Rupert Christian P.A.-C. - 04/11/2011 12:00 AM CST [id number] CHIEF COMPLAINT/ REASON FOR VISIT His abdominal [...] her labs that were done yesterday in [place] and other than the abnormal fructose absorption [...] contact Dr. Lagos who is a pediatric office chair assembler who saw her yesterday TLR/clf Signed [facility] Electronically Signed By: RUPERT CHRISTIAN PA-C On: 04/11/2011 03:31 PM Source: [facility] MHSDOLBEYNONRADSYS Document Id: [id number] ARCHITECT Rupert Christian P.A.-C. - 04/11/2011 12:00 AM CST [id number] CHIEF COMPLAINT / REASON FOR VISIT I [...] an abnormal fructose absorption test yesterday at [place] and I spoke with Dr. Olivares, who is the pediatric office chair assembler who had seen her for this. She will be setting up a follow up for Chandrika to be seen again down in [place] for further evaluation and treatment of this problem. At this time I think Chandrika is continuing to improve and likely her symptoms today were from expelling the large amount of fructose from the test that she had done yesterday. Her mother was reassured with this and will have him follow up as scheduled in [place]. If there are any questions or problems or worsening of symptoms in the meantime they will let us know. TLR/kln Signed [facility] Electronically Signed By: RUPERT CHRISTIAN PA-C On: 04/14/2011 05:45 PM Source: [facility] MHSDOLBEYNONRADSYS Document Id: [id number] ARCHITECT documented in this encounter Miscellaneous Notes Miscellaneous - Rupert Christian P.A.-C. - 04/11/2011 12:42 PM CST Ambulatory Patient Summary [address] [address] Visit Information Name: CHANDRIKA ESQUEDA Current Date: [...] No Appointments found Your Goals/Additional instructions: Source: [facility] POWERCHART Document Id: [id number] ARCHITECT Miscellaneous - Rupert Christian P.A.-C. - 04/11/2011 12:42 PM CST Ambulatory Depart Summary [address] [address] Visit Information Name: CHANDRIKA ESQUEDA Visit Date: [...] Instructions/Comments No Medications found Additional Information: Source: [facility] POWERCHART Document Id: [id number] ARCHITECT Miscellaneous - Conversion, Historical Provider Ser - 04/11/2011 11:45 AM TEST ARCHITECT Pediatric Bedspread Folder Intake/History Pediatric Bedspread Folder Intake/History Entered On: 04/11/2011 11:48 TEST ARCHITECT Performed On: 04/11/2011 11:45 TEST ARCHITECT by CATA MALHOTRA Chief Complaint : Abd. [...] : 64.00kg CATA MALHOTRA - 04/11/2011 11:45 TEST ARCHITECT Subjective Pain Symptoms : Yes CATA MALHOTRA - 04/11/2011 11:45 TEST ARCHITECT Pain Pain Assessment Grid Pain 1 Location : Abdomen Laterality : Bilateral Intensity : 8 CATA MALHOTRA - 04/11/2011 11:45 TEST ARCHITECT Dependent Habits Tobacco Use/Currently Using : No Smoking Status : Never smoker CATA MALHOTRA - 04/11/2011 11:45 TEST ARCHITECT Allergy Allergies (Active) NKA Estimated Onset Date: Unspecified ; Created By: LORE ALEGRIA RN; Reaction Status: Active; Category: Drug ; Substance: NKA ; Type: Allergy ; Updated By: LORE ALEGRIA RN; Reviewed Date: 11/18/2010 13:30 CDT Source: [facility] [employer] MediaCHART Document Id: [id number] TEST ARCHITECT!26 documented in this encounter Plan of Treatment Not on filedocumented as of this encounter Visit Diagnoses Not on filedocumented in this encounter
--- OUTSIDE RECORDS SUMMARY | 2022-02-01 12:02 | XMS_ITS | Encounter Summary ---
:1995 Author Organization [facility] Address [address] [place] [address] Care Team Providers Name Role Phone Unavailable Primary Care Provider Unavailable Encounter Details Date Type Department Care Team Description 12/13/2012 Hospital Encounter HX [facility] FAMILYPRA Zaynab Barr i, M.D. [address] [place] [phone] (Wo rk) Social History Tobacco Use Types [...] Skelton M.D. - 12/13/2012 10:04 AM CDT [id number] CHIEF COMPLAINT/ REASON FOR VISIT Sore throat. [...] EXTREMITIES: Within normal limits. IMPRESSION/REPORT/PLAN 1. Mononucleosis: [place] test is positive. The patient is given [...] behalf by Maria Luisa Rosales, a trained biomedical engineering aide. The creation of this record is based on the scribe's personal observations and the provider's statements to them. This document has been chalo cked and approved by the attending provider. Zaynab Morrow M.D./burt Electronically Signed By: ZAYNAB MORROW MD On: 12/15/2012 10:35 PM Modified by and Electronically Signed by: ZAYNAB MORROW MD On: 12/15/2012 10:35 PM Source: [facility] MHSDOLBEYNONRADSYS Document Id: [id number] documented in this encounter Miscellaneous Notes Miscellaneous - Zaynab Skelton M.D. 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 - 12/13/2012 9:47 PM CDT Ambulatory Depart Summary [address] [address] Visit Information Name: CHANDRIKA ESQUEDA [facility] Number: [id number] Visit Date: 12/13/2012 21:47:17 Attending [...] for clarification. Additional Information: Source: [facility] POWERCHART Document Id: [id number] Miscellaneous - Conversion, Historical Provider Ser - 12/13/2012 10:08 AM CDT Adult Microsoft Dynamics Developer Intake/History Adult Microsoft Dynamics Developer Intake/History Entered On: 12/13/2012 10:10 CDT Performed [...] Mass Index : 20.62 kg/m2 [facility] - 12/13/2012 10:08 CDT General Info Information Given By : Patient Languages : Icelandic [facility] - 12/13/2012 10:08 CDT Subjective Pain Symptoms : Yes [facility] - 12/13/2012 10:08 CDT Pain Pain Assessment Grid Pain 1 Location : Generalized [facility] - 12/13/2012 10:08 CDT Dependent Habits Tobacco Use/Currently Using : No Exposure to Tobacco Smoke : Other: Never Smoking Status : Never smoker [facility] - 12/13/2012 10:08 CDT Tobacco Use Grid Last Use : never [facility] - 12/13/2012 10:08 CDT Caffeine Use Grid Caffeine Use : Current Type : Chocolate, Soft drinks Frequency : Occasionally [facility] - 12/13/2012 10:08 CDT Source: [employer] Document Id: [id number] CDT!37 documented in this encounter Plan of [...] HXPERIPH SMEAR EXAM (12/13/2012 10:36 AM CDT) [facility] Method Time Signature HXWBC Est. agree agree POWERCHART PLT Estimate adequate POWERCHART HXPeriph Morph appears POWERCHART normal Specimen (Source) Anatomical Collection Method Collection Time Re ceived Time Location / / Volume Laterality Blood 12/13/2012 10:36 AM CDT Zaynab Roberts M.D. LAB HISTORICAL ORDERS Performing Organization Address City/[facility] Phon e Number POWERCHART (ABNORMAL) Automated Differential (12/13/2012 10:36 AM CDT) Patholo gist Method Time Signature Neutro % 59.3 34.0 - POWERCHART 71.1 Lymphocytes % 27.1 19.3 - POWERCHART 51.7 HX Wasco % 12.1 4.7 - 12.5 POWERCHART HX [...] M.D. LAB BLOOD ADD-ON Performing Organization Address City/[facility] Phon e Number POWERCHART (ABNORMAL) CBC with Differential (12/13/2012 10:36 AM CDT) Analysis Performed At Patho logist Time Signature Leukocytes 3.9 3.4 - 10.5 POWERCHART [id number] Erythrocytes 4.28 3.90 - POWERCHART 5.03 [id number] Hemoglobin 12.8 12.0 - POWERCHART 15.5 GDL [...] M.D. LAB BLOOD ADD-ON Performing Organization Address City/[facility] Code Phon e Number POWERCHART (ABNORMAL) Mononucleosis Screen, POCT (12/13/2012 10:36 AM CDT) [facility] Method Time Signature Infectious (POSITIVE) POWERCHART Wasco Test, S HXFinal Positive POWERCHART HXFinal Reference: POWERCHART Negative Specimen (Source) Anatomical Collection Method Collection Time Re ceived Time Location / / Volume Laterality Blood 12/13/2012 10:36 AM CDT Zaynab Roberts M.D. LAB POCT ORDERABLES-MA NUAL Performing Organization Address City/[facility] Phon e Number POWERCHART Rapid Strep A Screen (12/13/2012 10:18 AM CDT) [facility] Method Time Signature HXRapid Strep POWERCHART Confirmation HXFinal Negative POWERCHART Specimen Anatomical Collection Method Collection Time Receive d Time (Source) Location / / Volume Laterality Throat 12/13/2012 10:18 12/13/2012 AM CDT 10:18 AM CDT Zaynab Roberts M.D. LAB MICROBIOLOGY - GEN ERAL ORDERABLES Performing Organization Address City/[facility] Phon e Number POWERCHART Rapid Strep A Screen (12/13/2012 10:18 AM CDT) [facility] Method Time Signature HXStrep A POWERCHART Screen Rapid HXFinal Negative for POWERCHART Strep Group A by rapid screen. HXFinal Culture POWERCHART confirmation to follow. Specimen (Source) Anatomical Collection Method Collection Time Re ceived Time Location / / Volume Laterality Throat 12/13/2012 10:18 AM CDT Zaynab Roberts M.D. LAB MICROBIOLOGY - GEN ERAL ORDERABLES Performing Organization Address City/[facility] Phon e Number POWERCHART documented in this encounter Visit Diagnoses Not on filedocumented in this encounter
--- OUTSIDE RECORDS SUMMARY | 2022-02-01 12:02 | XMS_ITS | Encounter Summary ---
:1995 Author Organization [facility] Address [address] [place] [address] Care Team Providers Name Role Phone Unavailable Primary Care Provider Unavailable Encounter Details Date Type Department Care Team Description 12/23/2012 Hospital Encounter HX [facility] FB[facility] FAMILYPRA Margarita Barr i, M.D. [address] [place] [phone] (Wo rk) Social History Tobacco Use Types [...] Skelton M.D. - 12/23/2012 11:00 AM CDT [id number] CHIEF COMPLAINT/ REASON FOR VISIT Ear pain, [...] behalf by Maria Luisa Rosales, a trained director of medical services. The creation of this record is based on the scribe's personal observations and the provider's statements to them. This document has been chalo cked and approved by the attending provider. Margarita Morrow M.D./burt Electronically Signed By: MARGARITA MORROW MD On: 12/26/2012 09:04 PM Modified by and Electronically Signed by: MARGARITA MORROW MD On: 12/26/2012 09:04 PM Source: [facility] MHSDOLBEYNONRADSYS Document Id: [id number] documented in this encounter Miscellaneous Notes Telephone [...] up. Since she goes to school in [place], she is unable to come in for [...] refill A: R: Please call Oralia at [phone] Advice/Action: Source used: ( ) Verbalizes understanding [...] back cell phone number ( ) Source: [facility] POWERCHART Document Id: [id number] Miscellaneous - Eloina Hyman, R.N. - 12/30/2012 [...] Zofran to last the 6 weeks? Source: [facility] POWERCHART Document Id: [id number] Electronically signed by Taryn [facility] Liquid Natural Gas Plant Operator [id number] at 10/01/2016 3:12 AM CDT Saskia - Margarita Skelton M.D. - 12/23/2012 5:40 PM CDT Ambulatory Patient Summary [address] [address] Visit Information Name: CHANDRIKA ESQUEDA [facility] Number: [id number] Current Date: 12/23/2012 17:40:12 Physicians [...] 02/15/2011 06/02/11 fructose / per [facility] Allergic reaction to drug, not elsewhere classified Active 06/03/2011 06/03/11 amoxicillin Your Upcoming Appointments Date Time Location Reason Provider No Appointments found Your Goals/Additional instructions: Source: [facility] POWERCHART Document Id: [id number] Saskia - Margarita Skelton M.D. - 12/23/2012 5:40 PM CDT Ambulatory Depart Summary [id number] [place] [address] Visit Information Name: CHADNRIKA ESQUEDA [facility] Number: [id number] Visit Date: 12/23/2012 17:40:11 Attending [...] your provider for clarification. Additional Information: Source: [facility] POWERCHART Document Id: [id number] Miscellaneous - Conversion, Historical Provider Ser - 12/23/2012 11:16 AM CDT Adult Brush Hand Intake/History Adult Brush Hand Intake/History Entered On: 12/23/2012 11:20 CDT Performed [...] Mass Index : 20.66 kg/m2 [facility] - 12/23/2012 11:16 CDT General Info Information Given By : Patient Languages : Citizen Of [place] [facility] - 12/23/2012 11:16 CDT Subjective Pain Symptoms : Yes [facility] - 12/23/2012 11:16 CDT Pain Pain Assessment Grid Pain 1 Location : Ear Laterality : Right [facility] - 12/23/2012 11:16 CDT Dependent Habits Tobacco Use/Currently Using : No Exposure to Tobacco Smoke : Other: Never Smoking Status : Never smoker [facility] - 12/23/2012 11:16 CDT Tobacco Use Grid Last Use : never [facility] - 12/23/2012 11:16 CDT Caffeine Use Grid Caffeine Use : Current Type : Chocolate, Soft drinks Frequency : Occasionally [facility] - 12/23/2012 11:16 CDT Source: [facility] [employer]CH[employer] Document Id: [id number] CDT!38 documented in this encounter Plan of Treatment Not on filedocumented as of this encounter Visit Diagnoses Not on filedocumented in this encounter
--- OUTSIDE RECORDS SUMMARY | 2022-02-01 12:02 | XMS_ITS | Encounter Summary ---
:1995 Author Organization [facility] [place] [address] Care Team Providers Name Role Phone Unavailable Primary Care Provider Unavailable Encounter Details Date Type Department Care Team Description 08/17/2012 Hospital Encounter HX [facility] Sa chalino Sood M.D. [phone] (Wo rk) Social History Tobacco Use Types [...] Body Mass Index 21.37 06/30/2012 10:01 AM SEMICONDUCTOR ASSEMBLER Body Mass Index Percentile 49.66 % 08/17/2012 10:55 AM CDT Growth Chart: [facility] (Girls, 2-20 Years) documented in this encounter Progress Notes Frida Sood M.D. - 08/17/2012 10:49 AM CDT [id number] CHIEF COMPLAINT/REASON FOR VISIT Nasal congestion, cough, [...] SOOD MD On: 08/18/2012 02:24 PM Source: [facility] MHSDOLBEYNONRADSYS Document Id: [id number] documented in this encounter Miscellaneous Notes Miscellaneous - Frida Sood M.D. - 08/17/2012 11:08 AM CDT Ambulatory Patient Summary [address] [address] Visit Information Name: CHANDRIKA ESQUEDA [facility] Number: [id number] Current Date: 08/17/2012 11:08:00 Physicians [...] Active 02/15/2011 06/02/11 fructose / per [facility] Allergic reaction to drug, not elsewhere classified Active 06/03/2011 06/03/11 amoxicillin Your Upcoming Appointments Date Time Location Reason Provider No Appointments found Your Goals/Additional instructions: Source: [facility] POWERCHART Document Id: [id number] Miscellaneous - Frida Sood M.D. - 08/17/2012 11:08 AM CDT Ambulatory Depart Summary [address] [address] Visit Information Name: LILLYCHANDRIKA JUNIOR [facility] Number: [id number] Visit Date: 08/17/2012 11:08:00 Attending [...] your provider for clarification. Additional Information: Source: [facility] LRNCHART Document Id: [id number] Miscellaneous - Conversion, Historical Provider Ser - 08/17/2012 10:55 AM CDT Pediatric Overhead Foreman Intake/History Pediatric Overhead Foreman Intake/History Entered On: 08/17/2012 10:57 CDT Performed [...] Info Preferred Name : Chandrika Languages : Senegalese LUCIE NICHOLS LPN - 08/17/2012 10:55 CDT [...] NICHOLS LPN - 08/17/2012 10:55 CDT [facility] Document Id: [id number] CDT!31 Miscellaneous - Conversion, Historical Provider Ser [...] 10:53 CDT Alcohol Use : No LUCIE NIHCOLS LPN 08/17/2012 10:53 CDT Caffeine Use Grid [...] NICHOLS LPN - 08/17/2012 10:53 CDT Source: [facility] LRNCHART Document Id: [id number] CDT!31 documented in this encounter Plan of Treatment Not on filedocumented as of this encounter Visit Diagnoses Not on filedocumented in this encounter
--- OUTSIDE RECORDS SUMMARY | 2022-02-01 12:02 | XMS_ITS | Encounter Summary ---
:1995 Author Organization [facility] Address [address] [place] [address] Care Team Providers Name Role Phone Unavailable Primary Care Provider Unavailable Encounter Details Date Type Department Care Team Description 12/23/2011 Hospital Encounter HX [facility] Zaynab Peterson M.D. [address] [place], [place] [phone] (Wo rk) Social History [...] 12/25/2011 8:49 PM CDT Test Performed by: [facility] [address] [place] [address] Resistance Welding Machine Operator: Ayad sow III, M.D. Alicja Olivares M.D. LAB HISTORICAL ORDERS Performing Organization Address [facility] Phon e Number POWERCHART Parasitic Examination (12/24/2011 12:00 PM CDT) [facility] Method Time Signature Ova and See Comment POWERCHART Parasite, Microscopy, F Comment: SOURCE: STOOL PARASITIC EXAMINATION ?FINAL No parasites seen. Cryptosporidium, Cyclospora, and microsp oridia are not readily detected by this method. Test Performed by: [facility] [place] [address] Resistance Welding Machine Operator: Ayad sow III, M.D. Specimen (Source) Anatomical Collection Method Collection Time Re ceived Time Location / / Volume Laterality Stool 12/24/2011 12:00 PM CDT Alicja Olivares M.D. LAB MICROBIOLOGY - GENERAL O RDERABLES Performing Organization Address [facility] Phon e Number POWERCHART Cryptosporidium Ag, F (12/24/2011 12:00 PM CDT) [facility] Method Time Signature Cryptosporidium Ag, Negative Negative POWERCHART F Comment: Test Performed by: [place] [address] Resistance Welding Machine Operator: Ayad sow III, M.D. Specimen (Source) Anatomical Collection Method Collection Time Re ceived Time Location / / Volume Laterality Stool 12/24/2011 12:00 PM CDT Alicja Olivares M.D. LAB MICROBIOLOGY - GENERAL O RDERABLES Performing Organization Address [facility] Code Phon e Number POWERCHART documented in this encounter Visit Diagnoses Not on filedocumented in this encounter
--- OUTSIDE RECORDS SUMMARY | 2022-02-01 12:02 | XMS_ITS | Encounter Summary ---
:1995 Author Organization [facility] Address [address] [place] [address] Care Team Providers Name Role Phone Unavailable Primary Care Provider Unavailable Encounter Details Date Type Department Care Team Description 05/11/2012 Hospital Encounter [facility]X [facility] FBHB FAMILYPRA Margarita Barr i, M.D. [address] [place] [phone] (Wo rk) Social History Tobacco Use Types Packs/Day Years Used Date Smoking Tobacco: Never Assessed Sex Assigned at Date Recorded Female 07/27/2019 2:28 PM CDT documented as of this encounter Last Filed Vital Signs Vital Sign Reading Time Taken Comments Blood Pressure 100/60 05/11/2012 10:02 AM LOAN FUNDER Pulse 52 05/11/2012 10:02 AM LOAN FUNDER Temperature - - Respiratory Rate 16 05/11/2012 10:02 AM LOAN FUNDER Oxygen Saturation - - Inhaled Oxygen Concentration - - Weight 62 kg (136 lb 11 oz) 05/11/2012 10:02 AM LOAN FUNDER Height 173 cm (5' 8.11) 05/11/2012 10:02 AM LOAN FUNDER Body Mass Index 20.72 05/11/2012 10:02 AM LOAN FUNDER Body Mass Index Percentile 42.11 % 05/11/2012 10:[address] Growth Chart: CDC (Girls, 2-20 Years) documented in this encounter Progress Notes Margarita Skelton M.D. - 05/11/2012 9:56 AM CST [id number] CHIEF COMPLAINT/REASON FOR VISIT Rash HISTORY OF [...] continue to monitor Margarita Morrow M.D./mali DOCID: [id number] Electronically Signed By: MARGARITA MORROW MD On: 07/16/2012 06:24 PM [facility] Document Id: [id number] documented in this encounter Miscellaneous Notes Miscellaneous - Margarita Skelton M.D. - 05/11/2012 10:30 PM LOAN FUNDER Ambulatory Patient Summary [address] [address] Visit Information Name: CHANDRIKA ESQUEDA [facility] Number: [id number] Current Date: 05/11/2012 22:30:26 Physicians [...] 02/15/2011 06/02/11 fructose / per [facility] Allergic reaction to drug, not elsewhere classified Active 06/03/2011 06/03/11 amoxicillin Your Upcoming Appointments Date Time Location Reason Provider No Appointments found Your Goals/Additional instructions: Source: [facility] POWERCHART Document Id: [id number] FUNDER Miscellaneous - Margarita Skelton M.D. - 05/11/2012 10:30 PM LOAN FUNDER Ambulatory Depart Summary [address] [address] Visit Information Name: CHANDRIKA ESQUEDA JUNIOR [facility] Number: [id number] Visit Date: 05/11/2012 22:30:25 Attending [...] your provider for clarification. Additional Information: Source: [facility] POWERCHART Document Id: [id number] FUNDER Miscellaneous - Conversion, Historical Provider Ser - 05/11/2012 10:02 AM LOAN FUNDER Adult Press Operator Helper Intake/History Adult Press Operator Helper Intake/History Entered On: 05/11/2012 10:04 LOAN FUNDER Performed On: 05/11/2012 10:02 LOAN FUNDER by LOIS CASAS LPN Intake Chief Complaint [...] 20.72kg/m2 LOIS CASAS LPN - 05/11/2012 10:02 LOAN FUNDER Subjective Pain Symptoms : No LOIS CASAS LPN - 05/11/2012 10:02 LOAN FUNDER Dependent Habits Tobacco Use/Currently Using : No Exposure to Tobacco Smoke : Other: Never Smoking Status : Never smoker LOIS CASAS LPN - 05/11/2012 10:02 LOAN FUNDER Tobacco Use Grid Last Use : never LOIS CASAS LPN - 05/11/2012 10:02 LOAN FUNDER Caffeine Use Grid Caffeine Use : Current Type : Chocolate, Soft drinks Frequency : Occasionally LOIS CASAS LPN - 05/11/2012 10:02 LOAN FUNDER Allergy Allergies (Active) amoxicillin Estimated Onset Date: <not entered> 06/03/2011 ; Reactions: rash ; Created By: PRICILA BEDOLLA CNP; Reaction Status: Active ; Category: Drug ; Substance: amoxicillin ; Type: Allergy ;Updated By: PRICILA BEDOLLA CNP; Reviewed Date: 05/11/2012 10:01 LOAN FUNDER Source: [facility] [employer]iq[employer] Document Id: [id number] documented in this encounter Plan of Treatment Not on filedocumented as of this encounter Visit Diagnoses Not on filedocumented in this encounter
--- OUTSIDE RECORDS SUMMARY | 2022-02-01 12:02 | XMS_ITS | Encounter Summary ---
:1995 Author Organization [facility] [address] Care Team Providers Name Role Phone Unavailable Primary Care Provider Unavailable Encounter Details Date Type Department Care Team Description 06/03/2011 Hospital Encounter HX [facility] FBHB FAMILYPRA Natalie Bedolla APRN, C.N.P. [address] [place] [phone] (Wo rk) Social History Tobacco Use Types Packs/Day Years Used Date Smoking Tobacco: Never Assessed Sex Assigned at Date Recorded Female 07/27/2019 2:28 PM CDT documented as of this encounter Last Filed Vital Signs Vital Sign Reading Time Taken Comments Blood Pressure 96/60 06/03/2011 1:52 PM TRANSCRIPTER Pulse 64 06/03/2011 1:52 PM TRANSCRIPTER Temperature - - Respiratory Rate 16 06/03/2011 1:52 PM TRANSCRIPTER Oxygen Saturation - - Inhaled Oxygen Concentration - - Weight - - Height - - Body Mass Index - - documented in this encounter Progress Notes Pricila Bedolla APRN, C.N.P. - 06/03/2011 12:00 AM CST [id number] CHIEF COMPLAINT/ REASON FOR VISIT Rash after [...] not improve SJM/clf Signed Pricila Bedolla, MSN, ALTERATION WORKER, CDE Family Nurse Practitioner Electronically Signed By: PRICILA BEDOLLA CNP On: 06/04/2011 09:10 AM Source: [facility] MHSDOLBEYNONRADSYS Document Id: [id number] SCRIPTER documented in this encounter Miscellaneous Notes Miscellaneous - Pricila Bedolla APRN, C.N.P. - 06/03/2011 2:16 PM CST Ambulatory Patient Summary [address] [address] Visit Information Name: CHANDRIKA ESQUEDA Current Date: [...] Comments Malabsorption Active 02/15/2011 fructose / per [facility] Allergic reaction to drug, not [...] No Appointments found Your Goals/Additional instructions: Source: [facility] E-Leather[employer] Document Id: [id number] SCRIPTER Miscellaneous - Pricila Bedolla APRN, C.N.P. - 06/03/2011 2:16 PM CST Ambulatory Depart Summary [address] [address] Visit Information Name: CHANDRIKA ESQUEDA Current Date: 06/03/2011 14:16:55 Attending Provider: PRICILA BEODLLA [facility] Primary Care Provider: MARGARITA MORROW MD [...] directed for 5 Days Additional Information: Source: [facility] E-[employer] Document Id: [id number] SCRIPTER Miscellaneous - Conversion, Historical Provider Ser - 06/03/2011 1:52 PM TRANSCRIPTER Pediatric Chemistry Teacher Intake/History Pediatric Chemistry Teacher Intake/History Entered On: 06/03/2011 13:53 TRANSCRIPTER Performed On: 06/03/2011 13:52 TRANSCRIPTER by GEO CHAVIS Intake Chief Complaint : mono test Temperature Core : 36.8C(Converted to: 98.2DegF) Peripheral Pulse Rate : 64/min Respiratory Rate : 16/min Heart Rhythm : Regular Systolic Blood Pressure : 96mmHg Diastolic Blood Pressure : 60mmHg NIBP Mean : 72mmHg BP Location : Left upper extremity Blood Pressure Cuff Size : Regular GEO CHAVIS 06/03/2011 13:52 TRANSCRIPTER Subjective Pain Symptoms : No GEO CHAVIS 06/03/2011 13:52 TRANSCRIPTER Dependent Habits Tobacco Use/Currently Using : No Exposure to Tobacco Smoke : Other: Never Smoking Status : Never smoker GEO CHAVIS 06/03/2011 13:52 TRANSCRIPTER Allergy Allergies (Active) NKA Estimated Onset Date: Unspecified ; Created By: LORE ALEGRIA RN; Reaction Status: Active; Category: Drug ; Substance: NKA ; Type: Allergy ; Updated By: LORE ALEGRIA RN; Reviewed Date: 06/02/2011 15:25 TRANSCRIPTER Source: [facility] E-[employer] Document Id: [id number] TRANSCRIPTER!18 documented in this encounter Plan of Treatment Not on filedocumented as of this encounter Visit Diagnoses Not on filedocumented in this encounter
--- OUTSIDE RECORDS SUMMARY | 2022-02-01 12:02 | XMS_ITS | Encounter Summary ---
:1995 Author Organization [facility] [place] [address] Care Team Providers Name Role Phone Unavailable Primary Care Provider Unavailable Encounter Details Date Type Department Care Team Description 04/13/2012 Hospital Encounter HX [facility] FBHB FAMILYPRA Kaitlynn Gonzales M.D. Social History Tobacco Use Types Packs/Day Years Used Date Smoking Tobacco: Never Assessed Sex Assigned at Date Recorded Female 07/27/2019 2:28 PM CDT documented as of this encounter Last Filed Vital Signs Vital Sign Reading Time Taken Comments Blood Pressure 110/58 04/13/2012 3:51 PM SOFTWARE SYSTEMS ENGINEER Pulse 72 04/13/2012 3:51 PM SOFTWARE SYSTEMS ENGINEER Temperature - - Respiratory Rate 16 04/13/2012 3:51 PM SOFTWARE SYSTEMS ENGINEER Oxygen Saturation - - Inhaled Oxygen Concentration - - Weight 60 kg (132 lb 4.4 oz) 04/13/2012 3:51 PM SOFTWARE SYSTEMS ENGINEER Height 173 cm (5' 8.11) 04/13/2012 3:51 PM SOFTWARE SYSTEMS ENGINEER Body Mass Index 20.05 04/13/2012 3:51 PM SOFTWARE SYSTEMS ENGINEER Body Mass Index Percentile 33.08 % 04/13/2012 3:51 PM CS T Growth Chart: CDC (Girls, 2-20 Years) documented in this encounter Progress Notes Robert Gonzales M.D. - 04/13/2012 3:46 PM CST [id number] CHIEF COMPLAINT/REASON FOR VISIT Been sick for [...] GONZALES MD On: 04/14/2012 12:20 PM Source: [facility] MHSDOLBEYNONRADSYS Document Id: [id number] WARE SYSTEMS ENGINEER documented in this encounter Miscellaneous Notes Miscellaneous - Robert Gonzales M.D. - 04/13/2012 4:54 PM CST Ambulatory Patient Summary [address] [address] Visit Information Name: CHANDRIKA ESQUEDA [facility] Number: [id number] Current Date: 04/13/2012 16:54:44 Physicians [...] Date Time Location Reason Provider 04/22/2012 08:00 [facility] Ophth check up Barbara RAMIREZ, Stephen Chamberlain Your Goals/Additional instructions: Source: [facility] POWERCHART Document Id: [id number] WARE SYSTEMS ENGINEER Miscellaneous - Robert Gonzales M.D. - 04/13/2012 4:54 PM CST Ambulatory Depart Summary [address] [address] Visit Information Name: CHANDRIKA ESQUEDA [facility] Number: [id number] Visit Date: 04/13/2012 16:54:43 Attending [...] your provider for clarification. Additional Information: Source: [facility] POWERCHART Document Id: [id number] WARE SYSTEMS ENGINEER Miscellaneous - Conversion, Historical Provider Ser - 04/13/2012 3:51 PM SOFTWARE SYSTEMS ENGINEER Adult Pmo Consultant Intake/History Adult Pmo Consultant Intake/History Entered On: 04/13/2012 15:54 SOFTWARE SYSTEMS ENGINEER Performed On: 04/13/2012 15:51 SOFTWARE SYSTEMS ENGINEER by RAMILA VIVAR Intake Chief Complaint : [...] 20.05kg/m2 GHAZALA, RAMILA Cleve - 04/13/2012 15:51 SOFTWARE SYSTEMS ENGINEER Subjective Pain Symptoms : Yes RAMILA VIVAR - 04/13/2012 15:51 SOFTWARE SYSTEMS ENGINEER Pain Pain Assessment Grid Pain 1 Location : Throat RAMILA VIVAR - 04/13/2012 15:51 SOFTWARE SYSTEMS ENGINEER Dependent Habits Tobacco Use/Currently Using : No Exposure to Tobacco Smoke : Other: Never Smoking Status : Never smoker GHAZALA RAMILA Cleve - 04/13/2012 15:51 SOFTWARE SYSTEMS ENGINEER Tobacco Use Grid Last Use : never RAMILA VIVAR - 04/13/2012 15:51 SOFTWARE SYSTEMS ENGINEER Caffeine Use Grid Caffeine Use : Current Type : Chocolate, Soft drinks Frequency : Occasionally RAMILA VIVAR - 04/13/2012 15:51 SOFTWARE SYSTEMS ENGINEER Allergy Allergies (Active) amoxicillin Estimated Onset Date: <not entered> 06/03/2011 ; Reactions: rash ; Created By: PRICILA BEDOLLA CNP; Reaction Status: Active ; Category: Drug ; Substance: amoxicillin ; Type: Allergy ;Updated By: PRICILA BEDOLLA CNP; Reviewed Date: 04/13/2012 15:50 SOFTWARE SYSTEMS ENGINEER Source: [facility] POWERCHART Document Id: [id number] documented in this encounter Plan of Treatment Not on filedocumented as of this encounter Procedures Procedure Name Priority Date/Time Associated Diagnosis Comme nts INFLUENZA A/B Routine 04/13/2012 4:37 PM Results for this SOFTWARE SYSTEMS ENGINEER procedure are i n the results section . documented in this encounter Results (ABNORMAL) Influenza A/B (04/13/2012 4:37 PM SOFTWARE SYSTEMS ENGINEER) [facility] Method Time Signature HXInfluenza A (POSITIVE POWERCHART [...] / Volume Laterality Nasal 04/13/2012 4:37 PM SOFTWARE SYSTEMS ENGINEER Robert Gonzales M.D. LAB MICROBIOLOGY - GENERAL O RDERABLES Performing Organization Address City/State/ZIP Code Phon e Number POWERCHART documented in this encounter Visit Diagnoses Not on filedocumented in this encounter
--- OUTSIDE RECORDS SUMMARY | 2022-02-01 12:02 | XMS_ITS | Encounter Summary ---
:1995 Author Organization [facility] Address [address] [place] [address] Care Team Providers Name Role Phone Unavailable Primary Care Provider Unavailable Encounter Details Date Type Department Care Team Description 06/30/2012 Hospital Encounter HX [facility] FB FAMILYPRA Margarita Barr i, M.D. [address] [place] [phone] (Wo rk) Social History Tobacco Use Types Packs/Day Years Used Date Smoking Tobacco: Never Assessed Sex Assigned at Date Recorded Female 07/27/2019 2:28 PM CDT documented as of this encounter Last Filed Vital Signs Vital Sign Reading Time Taken Comments Blood Pressure 92/58 06/30/2012 10:01 AM SENIOR PROJECT MANAGER Pulse 56 06/30/2012 10:01 AM SENIOR PROJECT MANAGER Temperature - - Respiratory Rate 16 06/30/2012 10:01 AM SENIOR PROJECT MANAGER Oxygen Saturation - - Inhaled Oxygen Concentration - - Weight 62 kg (136 lb 11 oz) 06/30/2012 10:01 AM SENIOR PROJECT MANAGER Height 171 cm (5' 7.32) 06/30/2012 10:01 AM SENIOR PROJECT MANAGER Body Mass Index 21.2 06/30/2012 10:01 AM SENIOR PROJECT MANAGER Body Mass Index Percentile 47.97 % 06/30/2012 10:[address] Growth Chart: CDC (Girls, 2-20 Years) documented in this encounter Progress Notes Margarita Skelton M.D. - 06/30/2012 9:53 AM CST [id number] CHIEF COMPLAINT/REASON FOR VISIT Not feeling well. [...] She and her teammates just won the [place] game last night and plan to go to the [facility] on July 03. She hopes to [...] worsening symptoms. Margarita Morrow M.D./mark anthony DOCID: [id number] Electronically Signed By: MARGARITA MORROW MD On: 07/01/2012 01:59 PM Source: [facility] MHSDOLBEYNONRADSYS Document Id: [id number] OR PROJECT MANAGER documented in this encounter Miscellaneous Notes Miscellaneous - Margarita Skelton M.D. - 06/30/2012 10:30 PM SENIOR PROJECT MANAGER Ambulatory Patient Summary [address] [facility] [place] [address] Visit Information Name: CHANDRIKA ESQUEDA [facility] Number: [id number] Current Date: 06/30/2012 22:30:50 Physicians [...] Active 02/15/2011 06/02/11 fructose / per [facility] Allergic reaction to drug, not elsewhere classified Active 06/03/2011 06/03/11 amoxicillin Your Upcoming Appointments Date Time Location Reason Provider No Appointments found Your Goals/Additional instructions: Source: [facility] POWERCHART Document Id: [id number] OR PROJECT MANAGER Miscellaneous - Margarita Skelton M.D. - 06/30/2012 10:30 PM SENIOR PROJECT MANAGER Ambulatory Depart Summary [address] [place] [address] Visit Information Name: CHANDRIKA ESQUEDA [facility] Number: [id number] Visit Date: 06/30/2012 22:30:49 Attending [...] your provider for clarification. Additional Information: Source: [facility] POWERCHART Document Id: [id number] OR PROJECT MANAGER Miscellaneous - Conversion, Historical Provider Ser - 06/30/2012 10:01 AM SENIOR PROJECT MANAGER Adult Power Regulator Intake/History Adult Power Regulator Intake/History Entered On: 06/30/2012 10:04 SENIOR PROJECT MANAGER Performed On: 06/30/2012 10:01 SENIOR PROJECT MANAGER by LOIS CASAS LPN Intake Chief Complaint [...] 21.20kg/m2 LOIS CASAS LPN - 06/30/2012 10:01 SENIOR PROJECT MANAGER General Info Information Given By : Patient Languages : Chinese LOIS CASAS LPN - 06/30/2012 10:01 SENIOR PROJECT MANAGER Subjective Pain Symptoms : Yes LOIS CASAS [facility] - 06/30/2012 10:01 SENIOR PROJECT MANAGER Pain Pain Assessment Grid Pain 1 Location : Ear Laterality : Bilateral LOIS CASAS [facility] - 06/30/2012 10:01 SENIOR PROJECT MANAGER Dependent Habits Tobacco Use/Currently Using : No Exposure to Tobacco Smoke : Other: Never Smoking Status : Never smoker LOIS CASAS [facility] - 06/30/2012 10:01 SENIOR PROJECT MANAGER Tobacco Use Grid Last Use : never LOIS CASAS [facility] - 06/30/2012 10:01 SENIOR PROJECT MANAGER Caffeine Use Grid Caffeine Use : Current Type : Chocolate, Soft drinks Frequency : Occasionally LOIS CASAS [facility] - 06/30/2012 10:01 SENIOR PROJECT MANAGER Allergy Allergies (Active) amoxicillin Estimated Onset Date: <not entered> 06/03/2011 ; Reactions: rash ; Created By: PRICILA BEDOLLA CNP; Reaction Status: Active ; Category: Drug ; Substance: amoxicillin ; Type: Allergy ;Updated By: PRICILA BEDOLLA CNP; Reviewed Date: 06/30/2012 10:01 SENIOR PROJECT MANAGER Source: [facility] POWERCHART Document Id: [id number] documented in this encounter Plan of Treatment Not on filedocumented as of this encounter Visit Diagnoses Not on filedocumented in this encounter
--- OUTSIDE RECORDS SUMMARY | 2022-02-01 12:02 | XMS_ITS | Encounter Summary ---
:1995 Author Organization [facility] [place] [address] Care Team Providers Name Role Phone Unavailable Primary Care Provider Unavailable Encounter Details Date Type Department Care Team Description 04/09/2012 Hospital Encounter HX [facility] NURSE Zaynab Nunn i, M.D. [address] [place] [phone] (Wo rk) Social History Tobacco Use Types Packs/Day Years Used Date Smoking Tobacco: Never Assessed Sex Assigned at Date Recorded Female 07/27/2019 2:28 PM CDT documented as of this encounter Plan of Treatment Not on filedocumented as of this encounter Visit Diagnoses Not on filedocumented in this encounter
--- OUTSIDE RECORDS SUMMARY | 2022-02-01 12:02 | XMS_ITS | Encounter Summary ---
:1995 Author Organization [facility] [place] [address] Care Team Providers Name Role Phone Unavailable Primary Care Provider Unavailable Encounter Details Date Type Department Care Team Description 12/10/2009 Hospital Encounter HX [facility] FAMILYPR[facility] Margarita Barr i, M.D. [address] [place] [phone] (Wo rk) Social History Tobacco Use Types Packs/Day Years Used Date Smoking Tobacco: Never Assessed Sex Assigned at Date Recorded Female 07/27/2019 2:28 PM CDT documented as of this encounter Progress Notes Margarita Skelton M.D. - 12/10/2009 12:00 AM CDT [id number] IMPRESSION/REPORT/PLAN 1. Age appropriate anticipatory guidance is [...] MORROW MD On 12/25/2009 09:19 AM Source: [facility] MHSDOLBEYNYANNICK Document Id: [id number] documented in this encounter Miscellaneous Notes Miscellaneous - Conversion, Historical Provider Ser - 12/10/2009 3:04 PM CDT [employer] Lawyer Intake/History [employer] Lawyer Intake/History Entered On: 12/10/2009 15:08 CDT Performed [...] RN; Reviewed Date: 12/07/2009 9:03 CDT [facility] Document Id: [id number] CDT!19 documented in this encounter Plan of Treatment Not on filedocumented as of this encounter Visit Diagnoses Not on filedocumented in this encounter
--- OUTSIDE RECORDS SUMMARY | 2022-02-01 12:02 | XMS_ITS | Encounter Summary ---
:1995 Author Organization [facility] [place] [address] Care Team Providers Name Role Phone Unavailable Primary Care Provider Unavailable Encounter Details Date Type Department Care Team Description 12/23/2011 Hospital Encounter HX [facility] Zaynab Peterson M.D. [address] [place], [place] [phone] (Wo rk) Social History Tobacco Use Types Packs/Day Years Used Date Smoking Tobacco: Never Assessed Sex Assigned at Date Recorded Female 07/27/2019 2:28 PM CDT documented as of this encounter Plan of Treatment Not on filedocumented as of this encounter Visit Diagnoses Not on filedocumented in this encounter
--- OUTSIDE RECORDS SUMMARY | 2022-02-01 12:02 | XMS_ITS | Encounter Summary ---
:1995 Author Organization [facility] [place] [address] Care Team Providers Name Role Phone Unavailable [...]
--- OUTSIDE RECORDS SUMMARY | 2022-02-01 12:02 | XMS_ITS | Encounter Summary ---
:1995 Author Organization [facility] [place] [address] Care Team Providers Name Role Phone Unavailable Primary Care Provider Unavailable Encounter Details Date Type Department Care Team Description 04/22/2012 Hospital Encounter HX [facility] Stephen Sarabia Jr., M.D. [address] [place], [place] [phone] (Wo rk) Social History Tobacco Use Types Packs/Day Years Used Date Smoking Tobacco: Never Assessed Sex Assigned at Date Recorded Female 07/27/2019 2:28 PM CDT documented as of this encounter Progress Notes Delicia Treviño, C.O.T. - 04/22/2012 8:12 AM CST [facility] Exam [facility] Exam Entered On: 04/22/2012 8:19 NUCLEAR PHYSICIAN Performed On: 04/22/2012 8:12 NUCLEAR PHYSICIAN by DELICIA TREVIÑO Chief Complaint and History Pain Symptoms : No Smoking Status : Never smoker Comment : Pt here for complete eye exam Some trouble with night vision Family History Reviewed : 04/22/2012 NUCLEAR PHYSICIAN DELICIA TREVIÑO - 04/22/2012 8:12 NUCLEAR PHYSICIAN Optometry Exam Familty History Grid Cancer : Sibling Diabetes : Grandparents DELICIA TREVIÑO - 04/22/2012 8:12 NUCLEAR PHYSICIAN Vision Testing Right Eye Vision Testing : Without correction, 20/20, -1 Left Eye Vision Testing : Without correction, 20/20, -1 Both Eyes Vision Testing : Without correction, 20/20 DELICIA TREVIÑO - 04/22/2012 8:12 NUCLEAR PHYSICIAN Refraction Right Eye Manifest Grid Date : 04/22/2012 NUCLEAR PHYSICIAN Performed by : Tech Sphere : 0 Visual Acuity Distance : 20/20 DELICIA TREVIÑO Cleve - 04/22/2012 8:12 NUCLEAR PHYSICIAN Left Eye Manifest Grid Date : 04/22/2012 NUCLEAR PHYSICIAN Performed by : Tech Sphere : 0 Visual Acuity Distance : 20/20 DELICIA TREVIÑO Cleve - 04/22/2012 8:12 NUCLEAR PHYSICIAN Ocular Testing EOMS : Normal Pupils : PERRLA Cover Test : Normal Comment : méndez full DELICIA TREVIÑO - 04/22/2012 8:12 NUCLEAR PHYSICIAN Intraoccular Pressures Intraoccular Pressures Grid Date : 04/22/2012 NUCLEAR PHYSICIAN 04/22/2012 NUCLEAR PHYSICIAN Eye : RE LE Applanation : 15 15 Eye Drops : Fluress Fluress MIGUEDELICIA BLANCAS - 04/22/2012 8:12 NUCLEAR PHYSICIAN MIGUEDELICIA BLANCAS - 04/22/2012 8:12 NUCLEAR PHYSICIAN Eye Drops Exam Phenylephrine 2.5% Eye Drops Eye : Both eyes Phenylephrine 2.5% Eye Drops Amount : One drop Phenylephrine 2.5% Eye Drops Time : 8:19 NUCLEAR PHYSICIAN Tropicamide 1% Eye Drops Eye : Both eyes Tropicamide 1% Eye Drops Amount : One drop Tropicamide 1% Eye Drops Time : 8:19 NUCLEAR PHYSICIAN MONICADELICIA - 04/22/2012 8:12 NUCLEAR PHYSICIAN Ocular Health Ocular Health Ext Rt Eye Grid Ext Rt Eye - Lids/Lashes : Normal Ext Rt Eye - Conjunctiva : Normal Ext Rt Eye - Cornea : Normal Ext Rt Eye - A/C : Normal Ext Rt Eye - Iris : Normal Ext Rt Eye - Lens : Normal STEPHEN FIGUEROA MD - 04/22/2012 8:56 NUCLEAR PHYSICIAN Ocular Health Ext Lt Eye Grid Ext Lt Eye - Lids/Lashes : Normal Ext Lt Eye - Conjunctiva : Normal Ext Lt Eye - Cornea : Normal Ext Lt Eye - A/C : Normal Ext Lt Eye - Iris : Normal Ext Lt Eye - Lens : Normal STEPHEN FIGUEROA MD - 04/22/2012 8:56 NUCLEAR PHYSICIAN Ocular Health Int Rt Eye Grid Int [...] Normal STEPHEN FIGUEROA MD - 04/22/2012 8:56 NUCLEAR PHYSICIAN Ocular Health Int Lt Eye Grid Int [...] Normal STEPHEN FIGUEROA MD - 04/22/2012 8:56 NUCLEAR PHYSICIAN Assessment Findings : Myopia, Other: Very mild (-0.12) myopia, no need for glasses but explains sx. Plan : Return for complete exam in one year or PRN STEPHEN FIGUEROA MD - 04/22/2012 8:56 NUCLEAR PHYSICIAN Source: [facility] [employer] Document Id: [id number] EAR PHYSICIAN documented in this encounter Miscellaneous Notes Miscellaneous - Stephen Figueroa M.D. - 04/22/2012 9:01 AM CST Ambulatory Patient Summary [address] [address] Visit Information Name: CHANDRIKA ESQUEDA [facility] Number: [id number] Current Date: 04/22/2012 09:01:53 [...] 02/15/2011 06/02/11 fructose / per [facility] Allergic reaction to drug, not elsewhere classified Active 06/03/2011 06/03/11 amoxicillin Your Upcoming Appointments Date Time Location Reason Provider No Appointments found Your Goals/Additional instructions: Source: [facility] [employer] Document Id: [id number] EAR PHYSICIAN Miscellaneous - Stephen Figueroa M.D. - 04/22/2012 9:01 AM CST Ambulatory Depart Summary [address] [address] Visit Information Name: LILLYRITESH NevarezISABEL PACHECO [facility] Number: [id number] Visit Date: 04/22/2012 09:01:53 [...] your provider for clarification. Additional Information: [facility] Document Id: [id number] EAR PHYSICIAN documented in this encounter Plan of Treatment Not on filedocumented as of this encounter Visit Diagnoses Not on filedocumented in this encounter
--- OUTSIDE RECORDS SUMMARY | 2022-02-01 12:02 | XMS_ITS | Encounter Summary ---
:1995 Author Organization [facility] Address [address] [place] [address] Care Team Providers Name Role Phone Unavailable Primary Care Provider Unavailable Encounter Details Date Type Department Care Team Description 04/29/2010 Hospital Encounter HX [facility] FAMILYPR[facility] Fabi Kam M.D. [address] [place], [place] [address] (Wo rk) Social History Tobacco Use Types Packs/Day Years Used Date Smoking Tobacco: Never Assessed Sex Assigned at Date Recorded Female 07/27/2019 2:28 PM CDT documented as of this encounter Progress Notes Kylah Kam M.D. - 04/29/2010 12:00 AM CST [id number] IMPRESSION/REPORT/PLAN Viral syndrome. PLAN Recommend increasing supportive [...] KAM MD On 05/01/2010 11:05 AM Source: [facility] MHSDOLBEYNONRADSYS Document Id: [id number] TECHNOLOGIST/HISTOTECHNOLOGIST documented in this encounter Miscellaneous Notes Miscellaneous - Kylah Kam M.D. - 04/29/2010 4:41 PM CST [place] [address] Visit Information Name: CHANDRIKA ESQUEDA Current Date: 04/29/2010 16:41:21 Primary Care Provider: MARGARITA MORROW MD [id number] Your Medications Here is a list of [...] No Appointments found Your Goals/Additional instructions: [facility] POWERCHART Document Id: [id number] Electronically signed by Conversion, [facility] Fixture Designer [id number] at 10/06/2016 5:53 AM CDT Miscellaneous - Kylah Kam M.D. - 04/29/2010 4:41 PM CST Ambulatory Depart Summary [address] [address] Visit Information Name: CHANDRIKA ESQUEDA Current Date: 04/29/2010 16:41:21 Primary Care Provider: MARGARITA MORROW MD [id number] CHANDRIKA ESQUEDA has been given the following list of medications: Your Medications It is important to take your medications as directed. Use a pill box or chart to help remind you to take your medications. Please let your doctor or nurse know if you have problems taking your medications. Medication/Strength Dose Route Frequency Indications/Special Instructions/Comments No Medications found Additional Information: Source: [facility]ITALEnvie de FraisesCHART Document Id: [id number] Electronically signed by Conversion, [facility] Fixture Designer [id number] at 10/06/2016 5:53 AM CDT Miscellaneous - Leandra Davenport L.P.N. - 04/29/2010 3:57 PM CST Pediatric Nurse Extern Intake/History Pediatric Nurse Extern Intake/History Entered On: 04/29/2010 15:58 CYTOTECHNOLOGIST/HISTOTECHNOLOGIST Performed On: 04/29/2010 15:57 CYTOTECHNOLOGIST/HISTOTECHNOLOGIST by LEANDRA DAVENPORT LPN Intake Chief Complaint: sore throat ear pain Temperature Core: 36.8C(Converted to: 98.2DegF) Peripheral Pulse Rate: 64/min Respiratory Rate: 16/min Systolic Blood Pressure: 94mmHg Diastolic Blood Pressure: 52mmHg NIBP Mean: 66mmHg BP Location: Left upper extremity Actual Weight: 63.300kg(Converted to: 139lb 9oz) Dosing Weight Clinic: 63.30kg ELANDRA DAVENPORT LPN - 04/29/2010 15:57 CYTOTECHNOLOGIST/HISTOTECHNOLOGIST Subjective Pain Symptoms: Yes LEANDRA DAVENPORT LPN - 04/29/2010 15:57 CYTOTECHNOLOGIST/HISTOTECHNOLOGIST Pain Pain Assessment Grid Pain 1 Pain 2 Location: Ear Throat Laterality: Bilateral LEANDRA DAVENPORT LPN - 04/29/2010 15:57 CYTOTECHNOLOGIST/HISTOTECHNOLOGIST LEANDRA DAVENPORT LPN - 04/29/2010 15:57 CYTOTECHNOLOGIST/HISTOTECHNOLOGIST Dependent Habits Tobacco Use/Currently Using: No LEANDRA DAVENPORT LPN - 04/29/2010 15:57 CYTOTECHNOLOGIST/HISTOTECHNOLOGIST Allergy Allergies (Active) NKA Estimated Onset Date: Unspecified ; Created By: LORE ALEGRIA RN; Reaction Status: Active; Category: Drug ; Substance: NKA ; Type: Allergy ; Updated By: LORE ALEGRIA RN; Reviewed Date: 04/29/2010 15:57 CYTOTECHNOLOGIST/HISTOTECHNOLOGIST Source: [facility] [employer] Document Id: [id number] CYTOTECHNOLOGIST/HISTOTECHNOLOGIST!23 TECHNOLOGIST/HISTOTECHNOLOGIST documented in this encounter Plan of Treatment Not on filedocumented as of this encounter Visit Diagnoses Not on filedocumented in this encounter
--- OUTSIDE RECORDS SUMMARY | 2022-02-01 12:02 | XMS_ITS | Encounter Summary ---
:1995 Author Organization [facility] [place] [address] Care Team Providers Name Role Phone Unavailable [...]
--- OUTSIDE RECORDS SUMMARY | 2022-02-01 12:02 | XMS_ITS | Encounter Summary ---
:1994 Author Organization [facility] [place] [address] Care Team Providers Name Role Phone Unavailable Primary Care Provider Unavailable Encounter Details Date Type Department Care Team Description 12/01/2012 Hospital Encounter HX [facility] FAMILYPRA Zaynab Barr i, M.D. [address] [place] [phone] (Wo rk) Social History Tobacco Use Types [...] Skelton M.D. - 12/01/2012 1:05 PM CDT [id number] CHIEF COMPLAINT/ REASON FOR VISIT Review medications, review medical concerns, update preventive services. HISTORY OF PRESENT ILLNESS Chandrika is a healthy 17 year old female who presents to the clinic for an annual physical. She is going to college at [employer] in the fall. She has a history of vomiting and diarrhea and has followed up with [facility]. Chandrika is uncertain of a final diagnosis. [...] negative. SOCIAL HISTORY She will be attending [employer] in the fall. FAMILY HISTORY Sister [...] by Maria Luisa Rosales, a trained medical education specialist. The creation of this record is based on the scribe's personal observations and the provider's statements to them. This document has been chalo cked and approved by the attending provider. Zaynab Morrow M.D./burt Electronically Signed By: ZAYNAB MORROW MD On: 12/01/2012 09:47 PM Modified by and Electronically Signed by: ZAYNAB MORROW MD On: 12/01/2012 09:47 PM Source: [facility] MHSDOLBEYNONRADSYS Document Id: [id number] documented in this encounter Miscellaneous Notes Miscellaneous - Zaynab Skelton M.D. 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 - 12/01/2012 1:48 PM CDT Ambulatory Depart Summary [address] [address] Visit Information Name: CHANDRIKA ESQUEDA JUNIOR [facility] Number: [id number] Visit Date: 12/01/2012 13:48:39 Attending [...] for clarification. Additional Information: Source: [facility] [employer]CHART Document Id: [id number] Miscellaneous - Conversion, Historical Provider Ser - 12/01/2012 1:24 PM CDT Adult Intranet Developer Intake/History Adult Intranet Developer Intake/History Entered On: 12/01/2012 13:26 CDT Performed [...] Index : 21.03 kg/m2 LOIS CASAS [facility] - 12/01/2012 13:24 CDT General Info Information Given By : Patient Languages : Italian LOIS CASAS [facility] - 12/01/2012 13:24 CDT Subjective Pain Symptoms : No LOIS CASAS [facility] - 12/01/2012 13:24 CDT Dependent Habits Tobacco Use/Currently Using : No Exposure to Tobacco Smoke : Other: Never Smoking Status : Never smoker ANTONY ZEFERINO, LOIS CAROL [facility] - 12/01/2012 13:24 CDT Tobacco Use Grid Last Use : never ANTONY ZEFERINO, LOIS CAROL [employer] - 12/01/2012 13:24 CDT Caffeine Use Grid Caffeine Use : Current Type : Chocolate, Soft drinks Frequency : Occasionally ANTONY ZEFERINO, LOIS CAROL MANA[employer]D - 12/01/2012 13:24 CDT Source: [facility] [employer]CHART Document Id: [id number] CDT!32 documented in this encounter Plan of Treatment Not on filedocumented as of this encounter Visit Diagnoses Not on filedocumented in this encounter
--- OUTSIDE RECORDS SUMMARY | 2022-02-01 12:02 | XMS_ITS | Encounter Summary ---
:1995 Author Organization [facility] [place] [address] Care Team Providers Name Role Phone Unavailable Primary Care Provider Unavailable Encounter Details Date Type Department Care Team Description 08/25/2011 Hospital Encounter HX [facility] FAMILYPR[facility] Margarita Barr i, M.D. [address] [place] [phone] (Wo rk) Social History Tobacco Use Types [...] Skelton M.D. - 08/25/2011 12:00 AM CDT [id number] CHIEF COMPLAINT/ REASON FOR VISIT Dysmenorrhea. HISTORY [...] MORROW MD On: 09/26/2011 01:39 PM Source: [facility] MHSDOLBEYNONRADSYS Document Id: [id number] documented in this encounter Miscellaneous Notes Miscellaneous - Margarita Skelton M.D. - 08/25/2011 9:06 PM CDT Ambulatory Depart Summary [address] [address] Visit Information Name: CHANDRIKA ESQUEDA Visit Date: [...] your provider for clarification. Additional Information: Source: [facility] POWERCHART Document Id: [id number] Miscellaneous - Margarita Skelton M.D. 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 / per [facility] Allergic reaction to drug, not elsewhere classified Active 06/03/2011 amoxicillin Your Upcoming Appointments Date Time Location Reason Provider No Appointments found Your Goals/Additional instructions: Source: [employer] Document Id: [id number] Miscellaneous - Conversion, Historical Provider Ser - 08/25/2011 2:10 PM CDT Pediatric Scientist Immunology Intake/History Pediatric Scientist Immunology Intake/History Entered On: 08/25/2011 14:14 CDT Performed [...] PRICILA BEDOLLA CNP; Reviewed Date: 06/03/2011 14:15 STAVE JOINTER Source: [facility] POWERCHART Document Id: [id number] CDT!22 documented in this encounter Plan of Treatment Not on filedocumented as of this encounter Visit Diagnoses Not on filedocumented in this encounter
--- OUTSIDE RECORDS SUMMARY | 2022-02-01 12:02 | XMS_ITS | Encounter Summary ---
:1995 Author Organization [facility] [place] [address] Care Team Providers Name Role Phone Unavailable Primary Care Provider Unavailable Encounter Details Date Type Department Care Team Description 12/22/2011 Hospital Encounter HX [facility] Zaynab Peterson M.D. [address] [place], [place] [phone] (Wo rk) Social History Tobacco Use Types Packs/Day Years Used Date Smoking Tobacco: Never Assessed Sex Assigned at Date Recorded Female 07/27/2019 2:28 PM CDT documented as of this encounter Plan of Treatment Not on filedocumented as of this encounter Visit Diagnoses Not on filedocumented in this encounter
--- OUTSIDE RECORDS SUMMARY | 2022-02-01 12:02 | XMS_ITS | Encounter Summary ---
:1995 Author Organization [facility] [place] [address] Care Team Providers Name Role Phone Unavailable Primary Care Provider Unavailable Encounter Details Date Type Department Care Team Description 12/30/2010 Hospital Encounter HX [facility] B[facility] Zaynab Barr i, M.D. [address] [place] [phone] (Wo rk) Social History Tobacco [...]
--- OUTSIDE RECORDS SUMMARY | 2022-02-01 12:02 | XMS_ITS | Encounter Summary ---
:1995 Author Organization [facility] [place] [address] Care Team Providers Name Role Phone Unavailable Primary Care Provider Unavailable Encounter Details Date Type Department Care Team Description 12/27/[address] [facility] FB FAMILYPRA Margarita Barr i, M.D. [address] [place] [phone] (Wo rk) Social History Tobacco Use Types Packs/Day Years Used Date Smoking Tobacco: Never Assessed Sex Assigned at Date Recorded Female 07/27/2019 2:28 PM CDT documented as of this encounter Progress Notes Margarita Skelton M.D. - 12/27/2010 12:00 AM CDT [id number] CHIEF COMPLAINT/REASON FOR VISIT Recheck HISTORY OF [...] MORROW MD On: 02/03/2011 01:19 PM Source: [facility] MHSDOLBEYNONRADSYS Document Id: [id number] documented in this encounter Miscellaneous Notes Miscellaneous [...] drinking it. She does have appt in [place] on Feb.03. Mom wonders if there is anything else she can do? SHARON From: MARGARITA MORROW MD To: LOIS CASAS LPN Sent: 12/30/2010 20:34:03 CDT ! Show up: 12/30/2010 20:33:00 CDT Subject: Results Notification Actions: Notify patient of results Due Date/Time: 12/30/2010 20:33:00 CDT Source: [employer] Document Id: [id number] Miscellaneous - Conversion, Historical Provider Ser - 12/27/2010 12:23 PM CDT Adult Fulfillment Specialist Intake/History Adult Fulfillment Specialist Intake/History Entered On: 12/27/2010 12:30 CDT Performed [...] RN; Reviewed Date: 11/18/2010 13:30 CDT Source: [employer] Document Id: [id number] CDT!19 documented in this encounter Plan of Treatment Not on filedocumented as of this encounter Visit Diagnoses Not on filedocumented in this encounter
--- OUTSIDE RECORDS SUMMARY | 2022-02-01 12:02 | XMS_ITS | Encounter Summary ---
:1995 Author Organization [facility] [place] [address] Care Team Providers Name Role Phone Unavailable Primary Care Provider Unavailable Encounter Details Date Type Department Care Team Description 11/25/2002 Hospital Encounter HX [facility] Michi Camacho M.D. [address] [place] [phone] (Wo rk) Social History Tobacco Use Types Packs/Day Years Used Date Smoking Tobacco: Never Assessed Sex Assigned at Date Recorded Female 07/27/2019 2:28 PM CDT documented as of this encounter Plan of Treatment Not on filedocumented as of this encounter Visit Diagnoses Not on filedocumented in this encounter
--- OUTSIDE RECORDS SUMMARY | 2022-02-01 12:02 | XMS_ITS | Encounter Summary ---
:1995 Author Organization [facility] [place] [address] Care Team Providers Name Role Phone Unavailable Primary Care Provider Unavailable Encounter Details Date Type Department Care Team Description 06/03/2011 Hospital Encounter HX [facility] Jessy Starks A PRN, C.N.P. [address] [place], [place] [phone] (Wo rk) Social History Tobacco Use Types Packs/Day Years Used Date Smoking Tobacco: Never Assessed Sex Assigned at Date Recorded Female 07/27/2019 2:28 PM CDT documented as of this encounter Plan of Treatment Not on filedocumented as of this encounter Procedures Procedure Name Priority Date/Time Associated Comments Diagnosis POCT MONONUCLEOSIS Routine 06/03/2011 1:46 PM Res ults for this SCREEN MOVIE SHOT CAMERAMAN procedure are i n the results section. documented in this encounter Results Mononucleosis Screen, POCT (06/03/2011 1:46 PM MOVIE SHOT CAMERAMAN) [facility] Method Time Signature Infectious POWERCHART [place] Test, S HXFinal Negative POWERCHART HXFinal Reference: POWERCHART Negative Specimen (Source) Anatomical Collection Method Collection Time Re ceived Time Location / / Volume Laterality Blood 06/03/2011 1:46 PM MOVIE SHOT CAMERAMAN Jessy Starks APRN, C.N.P. LAB POCT ORDERABLES-MANUAL Performing Organization Address City/State/ZIP Code Phon e Number POWERCHART documented in this encounter Visit Diagnoses Not on filedocumented in this encounter
--- OUTSIDE RECORDS SUMMARY | 2022-02-01 12:02 | XMS_ITS | Encounter Summary ---
:1995 Author Organization [facility] [place] [address] Care Team Providers Name Role Phone Unavailable Primary Care Provider Unavailable Encounter Details Date Type Department Care Team Description 12/23/2011 Hospital Encounter [facility] Zaynab Peterson M.D. [address] [place], [place] [phone] (Wo rk) Social History Tobacco Use Types Packs/Day Years Used Date Smoking Tobacco: Never Assessed Sex Assigned at Date Recorded Female 07/27/2019 2:28 PM CDT documented as of this encounter Plan of Treatment Not on filedocumented as of this encounter Visit Diagnoses Not on filedocumented in this encounter
--- OUTSIDE RECORDS SUMMARY | 2022-02-01 12:03 | XMS_ITS | Clinical Summary ---
:1995 Author Organization [facility] [facility] [place] [address] Care Team Providers Name Role Phone Zaynab Roberts MD Primary Care Provider [phone] Allergies Active Allergy Reactions Severity Noted Date [...] Name Administration Dates Next Due COVID-19 vaccine ([employer] 05/02/2021 30mcg/0.3mL) PF, MDV DTaP 02/01/1999, 07/02/1995 [...] Comments Blood Pressure 104/69 05/02/2021 8:59 AM HORIZONTAL RESAW OPERATOR Pulse 79 05/02/2021 8:59 AM HORIZONTAL RESAW OPERATOR Temperature 36.9 ??C (98.4 ??F) 05/06/2015 12:03 AM HORIZONTAL RESAW OPERATOR Respiratory Rate 18 05/06/2015 12:03 AM HORIZONTAL RESAW OPERATOR Oxygen Saturation 100% 05/02/2021 8:59 AM HORIZONTAL RESAW OPERATOR Inhaled Oxygen Concentration - - Weight 89.1 kg (196 lb 6.4 oz) 05/02/2021 8:59 AM HORIZONTAL RESAW OPERATOR Height 171.3 cm (5' 7.44) 05/02/2021 8:59 AM HORIZONTAL RESAW OPERATOR Body Mass Index 30.36 05/02/2021 8:59 AM HORIZONTAL RESAW OPERATOR Plan of Treatment Health Maintenance Due Date [...] ss Type Group PREFERRED ONE PREFERRED ONE [id number] 2021-Present [address] [place] [address] 20 13 16 h F y (Home) [place] [address] Eriak MOSQUERA Personal/Famil Self 1995 17 [address] h F y (Home) [place] [address] Oralia Esqueda Personal/Famil Mother 04/18/1962 [id number] A BERONICAANDER y (Home) [place] [address] Care Teams Checkroom Chief Relationship Specialty Start Date End Date Zaynab Roberts, PCP - General Family Practice 12/02 10/12
[2022-02-12 08:40] LABS: Progesterone, HPLC-MS/MS 57.59 ng/mL
== END 2022-02-01 11:58 | disposition home or self-care (01) ==
LOC: LAB 11:58
PROVIDERS: Visit Provider Registered Nurse
DX: Z31.9 Encounter for procreative management, unspecified (principal)
CPT/HCPCS: 36415; 84144

== ENCOUNTER 2022-03-07 09:51 | Outpatient (CLI) | payer SELFPAY ==
--- OUTSIDE RECORDS SUMMARY | 2022-03-07 20:12 | XMS_ITS | Clinical Summary ---
:1995 Author Organization [facility] [place] [address] Care Team Providers Name Role Phone Jake Villegas M.D. Primary Care Provider Source Comments Patient records contain information from all sites at [facility]. For routine questions regarding patient records, call [phone] during business hours, M-F 8:00 AM - 5:00 PM Central Time. Record requests for emergency care only can be directed to [phone] at any time.[facility] Allergies Active Allergy Reactions Severity Noted [...] = 0.6 oz pure alcoho l) occasional Sex Assigned at Date Recorded Female 07/27/2019 2:28 PM CDT Last Filed Vital Signs Vital Sign Reading Time Taken Comments Blood Pressure 144/90 01/04/2022 6:42 PM CDT Pulse 90 01/04/2022 6:36 PM CDT Temperature 37 ??C (98.6 ??F) 03/29/2018 2:00 PM TITLE INSURANCE AGENT Respiratory Rate 16 03/29/2018 2:00 PM TITLE INSURANCE AGENT Oxygen Saturation 100% 01/04/2022 6:36 PM CDT Inhaled Oxygen Concentration - - Weight 91 kg (200 lb 9.9 oz) 01/04/2022 6:44 PM CDT Height 171 cm (5' 7.32) 03/29/2018 2:00 PM TITLE INSURANCE AGENT Body Mass Index 31.12 03/29/2018 2:00 PM TITLE INSURANCE AGENT Plan of Treatment Health Maintenance Due Date [...] Donovan Pires P.A.-C. PROCEDURE DETAILS Repair type: ??Simple Limited [...] Addre ss Type Group BLUE CROSS BCBS [place] [id number] 2021-Presen [phone] [address] [facility] [address] [facility] [place] [address] 2012 16 [facility] (Home) [place] [address] Care Teams Multi Punch Operator Relationship Specialty Start Date End Date Jake Villegas M.D. PCP - General 06/14/[address] [place], [place] [address], [place] [address]
--- OUTSIDE RECORDS SUMMARY | 2022-03-07 20:12 | XMS_ITS | Encounter Summary ---
:1995 Author Organization [facility] [place] [address] Care Team Providers Name Role Phone Jake Villegas M.D. Primary Care Provider Reason for Referral Specialty Diagnoses / Procedures Referred By Contact Refer red To Contact Jake Villegas M.D . [facility] [address] [place] [address] Referral ID Status Reason Start Date Expiration Date Visits Requ ested Visits Authorized Encounter Details Date Type Department Care Team Description 01/20/2022 Orders Only [facility] Shalini Villegas M.D. [address] [place] [address] [phone] (Wo rk) Social History Tobacco [...] on filedocumented in this encounter Care Teams Delinquent Account Clerk Relationship Specialty Start Date End Date Jake Villegas M.D. PCP - General 2/11/[address] [place] [address] Megan [place]rig[place], [place] [phone] documented as of this encounter
--- OUTSIDE RECORDS SUMMARY | 2022-03-07 20:13 | XMS_ITS | Encounter Summary ---
:1995 Author Organization [facility] [place] [address] Care Team Providers Name Role Phone Zaynab Roberts M.D. Primary Care Provider [phone] Encounter Details Date Type Department Care Team Description 04/09/2018 Orders Only Department of Family Norma barraza Epigastric Medicine, Zaynab Kulkarni, (Primary Dx) Clinic, in [place] [address] [address] [phone] Social History Tobacco Use Types Packs/Day Years [...] Primary documented in this encounter Care Teams Whitewater Rafting Guide Relationship Specialty Start Date End Date Zaynab Roberts M.D. PCP - General 10/16/16 06/13/[address]199 [address] [phone] documented as of this encounter
--- OUTSIDE RECORDS SUMMARY | 2022-03-07 20:13 | XMS_ITS | Encounter Summary ---
:1995 Author Organization [facility] Address [address] [place] [address] Care Team Providers Name Role Phone Zaynab Roberts M.D. Primary Care Provider [phone] Encounter Details Date Type Department Care Team Description 09/24/2018 Nurse Triage Department of [facility] Trinidad Nelson R.N. Medicine, [facility], in [address] [place], [place] [address] [place] [address] [place] [address] [phone] Social History Tobacco Use Types Packs/Day Years Used Date Smoking Tobacco: Never Smokeless Tobacco: Never Alcohol Use Standard Drinks/Week Comments Yes 0 (1 standard drink = 0.6 oz pure alcoho l) occasional Sex Assigned at Date Recorded Female 07/27/2019 2:28 PM CDT documented as of this encounter Miscellaneous Notes Telephone Encounter - Aletha Nelson R.N. - 09/24/2018 11:33 AM CDT Patient notified [...] Group A, Collected DEFAULT 09/24/2018 [facility] PCR, POCT 10:48 AM CDT [facility] Specimen Anatomical Collection Method Collection Time Receive d Time (Source) Location / / Volume Laterality Varies (Throat) 09/24/2018 10:47 09/25/19 19 AM CDT 10:48 AM CDT Zaynab Roberts M.D. LAB POCT ORDERABLES - DEVICE Performing Organization Address City/State/ZIP Code Phon e Number [facility] [address] [place] [address] LAB documented in this encounter Visit Diagnoses Diagnosis Sore Throat - Primary documented in this encounter Care Teams Color Paste Mixer Relationship Specialty Start Date End Date Zaynab Roberts M.D. PCP - General 10/16/16 06/13/[address] [place] [address] documented as of this encounter
--- OUTSIDE RECORDS SUMMARY | 2022-03-07 20:13 | XMS_ITS | Encounter Summary ---
:1995 Author Organization [facility] Address [address] [place] [address] Care Team Providers Name Role Phone Jake Villegas M.D. Primary Care Provider Encounter Details Date Type Department Care Team Description 07/25/2020 Virtual Visit Department of Family Minh Siddiqui, COVID -19 Infection Medicine, [facility] [place] (Prima ry Dx) [facility], in [address] [place] [address] Social History Tobacco Use Types [...] - Date/Time SARS Coronavirus-2 RNA, V Asymptomatic [[id number]] (Abnormal) Collected: 07/24/20 1120 Lab Status: Final result Specimen: Varies from Nasopharynx Updated: 07/25/20 8998 SARS-CoV-2 Specimen Source Swab, Nasopharynx SARS CoV-2 RNA, TMA Detected Comment: SARS-CoV-2 RNA present. ----ADDITIONAL INFORMATION---- This molecular amplification test was performed using the Aptima SARS-CoV-2 assay ([employer] on the Liquid Engines System under emergency use authorization (EUA) by the U.S. Food and Drug Administration. Fact sheets for this EUA assay can be found at the following links: For Healthcare Providers: https://www.fda.gov/media/328375/download For Patients: https://www.fda.gov/media/899829/download ASSESSMENT/PLAN #1 COVID-19 disease Duration of Isolation [...] Flag The COVID infection flag in the Ernest Chart will 20 days from the date [...] which time the patient may return to [facility] for onsite appointments. [email or web address] 32913 Quarantine of household members/close contacts [facility] continues to recommend 14 days [...] to end home isolation. Minh Siddiqui M.D. [facility] COVID Care Team [facility] and [facility] This was a virtual visit. The [...] documented as of this encounter Care Teams Wood Finisher Relationship Specialty Start Date End Date Jake Villegas M.D. PCP - General 06/14/[address] [place], [place] [address] [address] documented as of this encounter
--- OUTSIDE RECORDS SUMMARY | 2022-03-07 20:13 | XMS_ITS | Encounter Summary ---
:1995 Author Organization [facility] Address [address] [place] [address] Care Team Providers Name Role Phone Zaynab Roberts M.D. Primary Care Provider [phone] Encounter Details Date Type Department Care Team Description 04/11/2020 Admin Visit Department of Family Medicine, [address] [address] [facility] [phone] Social History Tobacco Use Types Packs/Day Years [...] COVID19 Pending 04/11/2020 04/11/2020 04/11/2020 2:39 PM SALES AND SERVICE CHANGE LEADER documented as of this encounter Care Teams Carpenter Packing Relationship Specialty Start Date End Date Zaynab Roberts M.D. PCP - General 10/16/16 06/13/20 [address], [place] [address] documented as of this encounter
--- OUTSIDE RECORDS SUMMARY | 2022-03-07 20:13 | XMS_ITS | Encounter Summary ---
:1995 Author Organization [facility] [place] [address] Care Team Providers Name Role Phone Zaynab Roberts M.D. Primary Care Provider [phone] Reason for Visit Reason Comments Rash Noted for two and half weeks . States rash does look different based on area of body. Recently started swimm ing. Not sure if cause. Appointment Request (Routine) - Closed Specialty Diagnoses / Procedures Referred By Contact Refer red To Contact Family Medicine Referral ID Status Reason Start Date Expiration Date Visits Requ ested Visits Authorized [id number] Closed 06/09/2017 12/06/2017 1 1 Encounter Details Date Type Department Care Team Description 06/10/2017 Office Visit Department of Family Isaiah Dunlap atitis (Primary Dx); Medicine, Zaynab Garza [facility], in [place] [address] [phone] Social History Tobacco Use Types Packs/Day Years Used Date Smoking Tobacco: Never Smokeless Tobacco: Never Alcohol Use Standard Drinks/Week Comments Yes 0 (1 standard drink = 0.6 oz pure alcoho l) occasional Sex Assigned at Date Recorded Female 07/27/2019 2:28 PM CDT documented as of this encounter Last Filed Vital Signs Vital Sign Reading Time Taken Comments Blood Pressure 110/68 06/10/2017 11:38 AM BIOMASS FACILITATOR Pulse 101 06/10/2017 11:38 AM BIOMASS FACILITATOR Temperature 36.4 ??C (97.5 ??F) 06/10/2017 11:38 AM BIOMASS FACILITATOR Respiratory Rate 16 06/10/2017 11:38 AM BIOMASS FACILITATOR Oxygen Saturation 99% 06/10/2017 11:38 AM BIOMASS FACILITATOR Inhaled Oxygen Concentration - - Weight 77.2 kg (170 lb 1.4 oz) 06/10/2017 11:38 AM BIOMASS FACILITATOR Height 171 cm (5' 7.32) 06/10/2017 11:38 AM BIOMASS FACILITATOR Body Mass Index 26.38 06/10/2017 11:38 AM BIOMASS FACILITATOR documented in this encounter Progress Notes Zaynab [...] behalf by Frida Espinosa, a trained medical case manager. The creation of this record is based on the scribe's personal observations and the provider's statements to them. This document has been chalo cked and approved by the attending provider. ASS FACILITATOR documented in this encounter Plan of Treatment Not on filedocumented as of this encounter Visit Diagnoses Diagnosis Dermatitis - Primary Management Contraceptive documented in this encounter Care Teams Auto Overhauler Relationship Specialty Start Date End Date Zaynab Roberts M.D. PCP - General 10/16/16 06/13/20 [address] [place] [address] documented as of this encounter
--- OUTSIDE RECORDS SUMMARY | 2022-03-07 20:13 | XMS_ITS | Encounter Summary ---
:1995 Author Organization [facility] [place] [address] Care Team Providers Name Role Phone Zaynab Roberts M.D. Primary Care Provider [phone] Encounter Details Date Type Department Care Team Description 10/06/2017 Clinical Communication [facility] in [place] [address] [address] [phone] Social History Tobacco Use Types Packs/Day Years [...] is sent Telephone Encounter - Kelli Neumann LJoshuaP.NJoshua - 10/06/2017 4:37 PM CDT . Telephone Encounter - Cindy Dodson Jo - 10/06/2017 4:02 PM CDT Oralia Esqueda, [...] on filedocumented in this encounter Care Teams Correctional Cook Relationship Specialty Start Date End Date Zaynab Roberts M.D. PCP - General 10/16/16 06/13/20 [address] [place] [address] documented as of this encounter
--- OUTSIDE RECORDS SUMMARY | 2022-03-07 20:13 | XMS_ITS | Encounter Summary ---
:1995 Author Organization [facility] [place] [address] Care Team Providers Name Role Phone Jake Villegas M.D. Primary Care Provider Reason for Visit Reason Comments Finger Laceration Laceration on left thumb Encounter Details Date Type Department Care Team Description 01/04/2022 Emergency [facility] Donovan Pires La ceration Without Department P.A.-C. Foreign Body Left [address] [place] [address] Thumb Without Damage [place], [place], [place] To [place] I nitial [phone] (Primary Dx) [phone] (Wo rk) Social History Tobacco Use Types [...] Body Mass Index 31.12 03/29/2018 2:00 PM BATCH ROOM TECHNICIAN documented in this encounter Discharge Instructions Discharge InstructionsDonovan Pires, P.A.-C. - 01/04/2022 7:09 PM CDT 3 [...] sent through Care Everywhere. Laceration Care Adult Kxms-ml-Ntau (Uzbek)documented in this encounter Medications at Time of Discharge Medication Sig Dispensed Refills Start Date End Date drospirenone-ethinyl TAKE ONE TABLET BY 84 tablet 3 021 estradioL (AHSLEY,OCELLA) MOUTH EVERY DAY 3-0.03 mg per tablet [...] is a 26 y.o. female presents to [facility] requesting evaluation for laceration. No significant past medical history. Last tetanus greater than 5 years ago. Just prior to arrival patient cut non dominant left thumb on a pot. Wound hemostatic upon arrival. No loss of range of motion or function. No anticoagulants. No crush mechanism. No other acute complaints or concerns. 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 needed/used: no REVIEW OF SYSTEMS Constitutional: Negative [...] -- 01/04/221835 -- -- 01/04/22 1842 01/04/22 1836 90 144/90 100 % Pain Score 01/04/227 4 PHYSICAL EXAMINATION Constitutional: Nursing note and [...] ED Medication Administration from 01/04/2022 1830 to 01/04/2022 1910 Date/Time Order Dose Route Action Action by 01/04/2022 1906 CDT lidocaine 10 mg/mL (1 %) injection 20 mL (XYLOCAINE) 20 mL injection Given Nata O 01/04/2022 1904 CDT Tdap: Qodqsuq-mklcpentmk-dxhaxzjdj pertussis (PF) vaccine 0.5 mL 0.5 mL [...] dose documented in this encounter Care Teams Tile Layer Helper Relationship Specialty Start Date End Date Jake Villegas M.D. PCP - General 06/14/[address] [place] [address] [place] [phone] documented as of this encounter
--- OUTSIDE RECORDS SUMMARY | 2022-03-07 20:13 | XMS_ITS | Encounter Summary ---
:1995 Author Organization [facility] [place] [address] Care Team Providers Name Role Phone Zaynab Roberts M.D. Primary Care Provider Reason for Visit Reason Comments Med Refill Encounter Details Date Type Department Care Team Description 05/31/2018 Refill Department of Family Medicine, Kike Villafana Refill [facility], in Zaynab Madrigal M.D. [place] [address] [address] [place] [address] [phone] Social History Tobacco Use Types Packs/Day Years [...] on filedocumented in this encounter Care Teams Audiometric Technician Relationship Specialty Start Date End Date Zaynab Roberts M.D. PCP - General 10/16/16 06/13/[address] [phone] documented as of this encounter
--- OUTSIDE RECORDS SUMMARY | 2022-03-07 20:13 | XMS_ITS | Encounter Summary ---
:1995 Author Organization [facility] [place] [address] Care Team Providers Name Role Phone Zaynab Roberts M.D. Primary Care Provider [phone] Reason for Visit Appointment Request (Routine) - Closed Specialty Diagnoses / Procedures Referred By Contact Refer red To Contact Family Medicine Referral ID Status Reason Start Date Expiration Date Visits Requ ested Visits Authorized [id number] Closed 09/07/2017 03/06/2018 1 1 Encounter Details Date Type Department Care Team Description 09/09/2017 Nurse Only Department of Family Rabia Null, Medicine, [facility] in [facility] [address] [place], [place] [address], [place] [address] [place] [address] Social History Tobacco Use Types Packs/Day [...] Exam documented in this encounter Care Teams Stucco Applicator Relationship Specialty Start Date End Date Zaynab Roberts M.D. PCP - General 10/16/16 06/13/20 [address] [place] [address] documented as of this encounter
--- OUTSIDE RECORDS SUMMARY | 2022-03-07 20:13 | XMS_ITS | Encounter Summary ---
:[address] [facility] [place] [address] Care Team Providers Name Role Phone Zaynab Roberts M.D. Primary Care Provider [phone] Encounter Details Date Type Department Care Team Description 07/27/2019 Orders Only Department of Family William , [facility] [address] [place] [phone] (Wo rk) Social History Tobacco Use Types [...] on filedocumented in this encounter Care Teams Distance Education Coordinator Relationship Specialty Start Date End Date Zaynab Roberts M.D. PCP - General 10/16/16 06/13/[address] [address] documented as of this encounter
--- OUTSIDE RECORDS SUMMARY | 2022-03-07 20:13 | XMS_ITS | Encounter Summary ---
:1995 Author Organization [facility] [place] [address] Care Team Providers Name Role Phone Zaynab Roberts M.D. Primary Care Provider [phone] Encounter Details Date Type Department Care Team Description 04/05/2018 Hospital Encounter Department of Kelton Dotson eneralized Radiology in Zaynab maya [place], [place] [address] [facility] [address] [place], [place] [phone] Social History Tobacco Use Types Packs/Day [...] Please inform Beatriz of normal ultrasound results. ING PILOT documented in this encounter Plan of Treatment Not on filedocumented as of this encounter Procedures Procedure Name Priority Date/Time Associated Comments Diagnosis US ABDOMEN RAD - Routine 04/05/2018 8:20 Pain Generalized Results for this COMPLETE (most inpatients AM MAPPING PILOT Abdominal procedure a re in and all the results outpatients) section. documented in this encounter Results US Abdomen Complete (04/05/2018 8:20 AM MAPPING PILOT) Anatomical Region Laterality Modality Abdomen, Ultrasound RST LOS, Ultrasound ARZ LOS, Ultrasound FLA N/A Ultrasound LOS Specimen (Source) Anatomical Collection Method Collection Time Re ceived Time Location / / Volume Laterality 04/05/2018 8:21 AM MAPPING PILOT Impressions 04/05/2018 8:24 AM MAPPING PILOT IMPRESSION: Negative. Narrative 04/05/2018 8:24 AM MAPPING PILOT EXAM: US ABDOMEN COMPLETE COMPARISON: CT 04/11/11. [...] Abdominal documented in this encounter Care Teams Latex Spooler Relationship Specialty Start Date End Date Zaynab Roberts M.D. PCP - General 10/16/16 06/13/[address] [phone] documented as of this encounter
--- OUTSIDE RECORDS SUMMARY | 2022-03-07 20:13 | XMS_ITS | Encounter Summary ---
:1995 Author Organization [facility] [place] [address] Care Team Providers Name Role Phone Zaynab Roberts M.D. Primary Care Provider [phone] Reason for Visit Reason Comments Earache left ear pain x 48 hours Appointment Request (Routine) - Closed Specialty Diagnoses / Procedures Referred By Contact Refer red To Contact Community [facility] Referral ID Status Reason Start Date Expiration Date Visits Requ ested Visits Authorized [id number] Closed 10/05/2017 10/05/2018 1 1 Encounter Details Date Type Department Care Team Description 10/06/2017 Office Visit Department of [facility] Norma Kay tis Externa Acute Medicine, Zaynab Kulkarni Bilatera l (Primary Dx) Clinic, in [place] [address] [place] [phone] Social History Tobacco Use Types Packs/Day Years [...] behalf by Hyacinth Moreno, a trained medical assistant per diem. The creation of this record is based on the scribe's personal observations and the provider's statements to them. This document has been ch ecked and approved by the attending provider. documented in this encounter Plan of Treatment Not on filedocumented as of this encounter Visit Diagnoses Diagnosis Otitis Externa Acute Bilateral - Primary documented in this encounter Care Teams Corporate Development Manager Relationship Specialty Start Date End Date Zaynab Roberts M.D. PCP - General 10/16/16 06/13/20 [address] [place] [address] documented as of this encounter
--- OUTSIDE RECORDS SUMMARY | 2022-03-07 20:13 | XMS_ITS | Encounter Summary ---
:1995 Author Organization [facility] [place] [address] Care Team Providers Name Role Phone Zaynab Roberst M.D. Primary Care Provider Reason for Visit Reason Onset Date Comments Testing For Upper Respiratory Virus Symptoms 04/11/2020 Encounter Details Date Type Department Care Team Description 04/11/2020 External Outreach Department of [facility] Wily Driver [facility], [facility] Carine Steve Respiratory (Primary Building, in [address]) [place], [place] [address] [facility] [address] [place], [place] [phone] [address] (Work) [phone] Social History Tobacco Use Types Packs/Day Years [...] with possible COVID, Influenza, and RSV testing. GER COMMODITIES documented in this encounter Plan of Treatment Not on filedocumented as of this encounter Procedures Procedure Name Priority Date/Time Associated Comments Diagnosis SARS CORONAVIRUS 2 Routine 04/11/2020 12:10 Resul ts for this PCR DETECT, V PM MANAGER COMMODITIES procedure are in the results section. documented in this encounter Results SARS Coronavirus 2 RNA Detection (04/11/2020 12:10 PM MANAGER COMMODITIES) [facility] Method Time Signature SARS-CoV-2 Nasopharynx 04/12/2020 [facility] Specimen 4:04 AM MANAGER COMMODITIES Source SARS-CoV-2 Undetected Undetected 04/12/2020 [facility] RNA by PCR 4:04 AM MANAGER COMMODITIES Comment: SARS-CoV-2 RNA absent. This result does not rule out COVID-19 in the patient, as the sensitivity of the test depends o n the timing of the specimen collection and the quality of the specim en. Result should be correlated with patient's history and clinical presentat ion. ----ADDITIONAL INFORMATION---- This PCR test was performed using the Beacon Endoscopic SARS-CoV-2 assay ([employer] on the ban 6800 System under emergency use authorization (EUA) by the U.S. Food and Drug Administ ration. Fact sheets for this assay can be found at the following links: For Healthcare Providers: https://www.Jaypore a.gov/media/191480/download For Patients: https://www.fda.gov/media/ 558178/download Specimen Anatomical Collection Method Collection Time Receive d Time (Source) Location / / Volume Laterality Varies 04/11/2020 12:10 04/11/2020 PM MANAGER COMMODITIES 10:48 PM MANAGER COMMODITIES Wily Driver D.O. LAB MICROBIOLOGY - GENERAL O RDERABLES Performing Organization Address City/State/ZIP Code Phon e Number [facility] [address] [place] [address] SUPPORT CENTER [facility] [place] [address] Laboratory Medicine and Pathology [address] [place] [address] Dr. PRIEST documented in this encounter Visit Diagnoses Diagnosis Infection Upper Respiratory - Primary documented in this encounter Additional Health Concerns Infection Onset Date Last Indicated Resolved Time COVID19 Pending 04/11/2020 04/11/2020 04/11/2020 2:39 PM MANAGER COMMODITIES documented as of this encounter Care Teams Sheriff'S Detective Relationship Specialty Start Date End Date Zaynab Roberts M.D. PCP - General 10/16/16 06/13/[address] [address] documented as of this encounter
--- OUTSIDE RECORDS SUMMARY | 2022-03-07 20:13 | XMS_ITS | Encounter Summary ---
:1995 Author Organization [facility] [place] [place] [address] Care Team Providers Name Role Phone Zaynab Roberts M.D. Primary Care Provider [phone] Reason for Visit Reason Comments Other Stomach issues- pain, loose stools. Passed out the other day in the bath room, vomited Appointment Request (Routine) - Closed Specialty Diagnoses / Procedures Referred By Contact Refer red To Contact Family Medicine Referral ID Status Reason Start Date Expiration Date Visits Requ ested Visits Authorized [id number] Closed 03/19/2018 03/19/2019 1 1 Encounter Details Date Type Department Care Team Description 03/29/2018 Office Visit Department of [facility] Norma barraza [facility], Zaynab Kulkarni Abdomina l (Primary Dx) Clinic, in Kervin Madrigal [place] [address] [address] Social History Tobacco Use Types Packs/Day [...] Comments Blood Pressure 118/60 03/29/2018 2:00 PM GRASS CUTTER Pulse 76 03/29/2018 2:00 PM GRASS CUTTER Temperature 37 ??C (98.6 ??F) 03/29/2018 2:00 PM GRASS CUTTER Respiratory Rate 16 03/29/2018 2:00 PM GRASS CUTTER Oxygen Saturation - - Inhaled Oxygen Concentration - - Weight 79.1 kg (174 lb 6.1 oz) 03/29/2018 2:00 PM GRASS CUTTER Height 171 cm (5' 7.32) 03/29/2018 2:00 PM GRASS CUTTER Body Mass Index 27.05 03/29/2018 2:00 PM GRASS CUTTER documented in this encounter Progress Notes Zaynab [...] by Hyacinth Moreno, a trained medical assistant float. The creation of this record is based on the scribe's personal observations and the provider's statements to them. This document has been ch ecked and approved by the attending provider. S CUTTER documented in this encounter Plan of Treatment Not on filedocumented as of this encounter Results US Abdomen Complete (04/05/2018 8:20 AM GRASS CUTTER) Anatomical Region Laterality Modality Abdomen, Ultrasound RST LOS, Ultrasound ARZ LOS, Ultrasound FLA N/A Ultrasound LOS Specimen (Source) Anatomical Collection Method Collection Time Re ceived Time Location / / Volume Laterality 04/05/2018 8:21 AM GRASS CUTTER Impressions 04/05/2018 8:24 AM GRASS CUTTER IMPRESSION: Negative. Narrative 04/05/2018 8:24 AM GRASS CUTTER EXAM: US ABDOMEN COMPLETE COMPARISON: CT 04/11/11. [...] Abdominal documented in this encounter Care Teams Label Fuser Tender Relationship Specialty Start Date End Date Zaynab Roberts M.D. PCP - General 10/16/16 06/13/[address] [place] [address] documented as of this encounter
--- OUTSIDE RECORDS SUMMARY | 2022-03-07 20:13 | XMS_ITS | Encounter Summary ---
:1995 Author Organization [facility] [place] [address] Care Team Providers Name Role Phone Jake Villegas M.D. Primary Care Provider Encounter Details Date Type Department Care Team Description 07/24/2020 Admin Visit Department of Family Medicine, [address] [address] Social History Tobacco Use Types Packs/Day Years [...] documented as of this encounter Care Teams Icing And Glaze Maker Relationship Specialty Start Date End Date Jake Villegas M.D. PCP - General 06/14/[address] [place] [address] [place] [phone] documented as of this encounter
--- OUTSIDE RECORDS SUMMARY | 2022-03-07 20:13 | XMS_ITS | Encounter Summary ---
:1995 Author Organization [facility] [place] [address] Care Team Providers Name Role Phone Zaynab Roberts M.D. Primary Care Provider Reason for Visit Reason Comments Eye Exam Outpatient (Routine) - Closed Specialty Diagnoses / Procedures Referred By Contact Refer red To Contact Ophthalmology Stephen Jimenez Jr., M.D. [facility] [address] [place] [address] Referral ID Status Reason Start Date Expiration Date Visits Requ ested Visits Authorized [id number] Closed 10/08/2017 10/08/2018 1 1 Encounter Details Date Type Department Care Team Description 12/06/2018 Comprehensive Visit Department of Stephen Jimenez Vision Examination Ophthalmology brayan Chamberlain Jr., M.D. Normal (Primary Dx) [place], [place] [address] [phone] Social History Tobacco Use Types Packs/Day Years [...] Primary documented in this encounter Care Teams Impregnator Relationship Specialty Start Date End Date Zaynab Roberts M.D. PCP - General 10/16/16 06/13/[address] [address] documented as of this encounter
--- OUTSIDE RECORDS SUMMARY | 2022-03-07 20:13 | XMS_ITS | Encounter Summary ---
:1995 Author Organization [facility] Address [address] [place] [address] Care Team Providers Name Role Phone Jake Villegas M.D. Primary Care Provider Reason for Visit Reason Comments Cough Encounter Details Date Type Department Care Team Description 04/08/2021 [facility], [facility], in [address] [facility] [place] [address] [place] [address] [place] [address] [phone] Social History Tobacco Use Types Packs/Day Years Used Date Smoking Tobacco: Never Smokeless Tobacco: Never Alcohol Use Standard Drinks/Week Comments Yes 0 (1 standard drink = 0.6 oz pure alcoho l) occasional Sex Assigned at Date Recorded Female 07/27/2019 2:28 PM CDT documented as of this encounter Miscellaneous Notes Telephone Encounter - Deya Chaves, RJoshuaNJoshua - 04/08/2021 2:10 PM CST Chief Complaint [...] throat clearing) Protocols used: COUGH - ACUTE EHEYYISHWM-GRJVP-ER Care Advice Patient/Caregiver understands and will follow [...] use a saline nasal spray bottle (available tdmd-nwj-uclrcfm), a rubber ear syringe, a medical syringe [...] a nasal spray. * Pseudoephedrine (Sudafed): Available qqdn-uzb-whkxqkx in pill form. Typical adult dosage is two 30mg tablets every 6 hours. * Oxymetazoline Nasal Drops (Afrin): Available logp-cfw-bgnvywf. Clean out the nose before using. [place] each nostril once, wait one minute for absorption, and then spray a second time. * Phenylephrine Nasal Drops (Jimmy-Synephrine): Available lisj-qyz-dghbpww. Clean out the nose before using. [place] each nostril once, wait one minute for absorption, and then spray a second time. * Read the package instructions on all medicines that you take. FEVER MEDICINES: * For fevers above 101 F (38.3 C) take either acetaminophen or ibuprofen. * They are suym-voz-vnjkesl (OTC) drugs that help treat both fever and pain. [facility] at [facility]. * The goal of fever therapy is [...] per Cough - Acute Productive (Adult) guideline. VIORAL HEALTH TECHNICIAN documented in this encounter Plan of Treatment Not on filedocumented as of this encounter Visit Diagnoses Not on filedocumented in this encounter Care Teams Inspector Chief Relationship Specialty Start Date End Date Jake Villegas M.D. PCP - General 06/14/[address] [place] [address] [place] [address] documented as of this encounter
--- OUTSIDE RECORDS SUMMARY | 2022-03-07 20:13 | XMS_ITS | Encounter Summary ---
:1995 Author Organization [facility] [place] [address] Care Team Providers Name Role Phone Jake Villegas M.D. Primary Care Provider Encounter Details Date Type Department Care Team Description 08/06/2021 Orders Only [facility] Shal[facility] M[facility] [address] [place], [place] [phone] (Wo rk) Social History [...] on filedocumented in this encounter Care Teams Varnishing Machine Operator Relationship Specialty Start Date End Date Jake Villegas M.D. PCP - General 06/14/20 [address] [place] [address] documented as of this encounter
--- OUTSIDE RECORDS SUMMARY | 2022-03-07 20:13 | XMS_ITS | Encounter Summary ---
:1995 Author Organization [facility] [place] [address] Care Team Providers Name Role Phone Zaynab Roberts M.D. Primary Care Provider [phone] Encounter Details Date Type Department Care Team Description 07/20/2019 Refill Department of Family Medicine, Rohan Villafana [facility], in Zaynab Madrigal M.D. [place] [address] [address] [place] [address] [phone] Social History Tobacco Use Types Packs/Day Years [...] filedocumented in this encounter Care Teams Manager Shell Relationship Specialty Start Date End Date Zaynab Roberts M.D. PCP - General 10/16/16 06/13/[address] [phone] documented as of this encounter
--- OUTSIDE RECORDS SUMMARY | 2022-03-07 20:13 | XMS_ITS | Encounter Summary ---
:1995 Author Organization [facility] [place] [address] Care Team Providers Name Role Phone Jake Villegas M.D. Primary Care Provider Reason for Visit Reason Onset Date Comments Outpatient COVID-19 Testing 07/24/2020 Encounter Details Date Type Department Care Team Description 07/24/2020 External Outreach Department of Family [facility] Contact With And Medicine, Caleb Steve D.O. (Suspected) Exposure Building, in [address] To COVID-19 (Primary [place], [place] Dx) [address] [facility] [address] [place], [place] [phone] [address] (Work) [phone] Social History Tobacco Use Types Packs/Day Years [...] managing the patient, they may call the [facility] Covid Care Team Doc of the Day, send an inbasket to P [facility] COVID-19 POSITIVE, or place a Covid Care [...] RNA, V Asymptomatic (07/24/2020 11:20 AM CDT) [facility] Method Time Signature SARS-CoV-2 Swab, 07/25/2020 [facility] Specimen Nasopharynx 4:38 AM CDT Source SARS CoV-2 Detected (A) Undetected 07/25/2020 [facility] RNA, TMA 4:38 AM CDT Comment: SARS-CoV-2 RNA present. ----ADDITIONAL INFORMATION---- This molecular amplification test was pe rformed using the Aptima SARS-CoV-2 assay ([employer].) on the MedAptuss tem under emergency use authorization (EUA) by the U.S. Food and Drug Administ ration. Fact sheets for this EUA assay can be fo und at the following links: For Healthcare Providers: https://www.fd a.gov/media/513312/download For Patients: https://www.fda.gov/media/ 745725/download Specimen Anatomical Collection Method Collection Time Receive d Time (Source) Location / / Volume Laterality Varies 07/24/2020 11:20 07/24/2020 7:00 (Nasopharynx) AM CDT PM CDT Wily Driver D.O. LAB MICROBIOLOGY - GENERAL O [place]ELSON Performing Organization Address City/State/ZIP Code Phon e Number [facility] [address] [place] [address] [place] [address] System in [place] [address] [place] [address] documented in this encounter Visit Diagnoses Diagnosis Contact With And (Suspected) Exposure To COVID-19 - Primary documented in this encounter Additional Health Concerns Infection Onset Date Last Indicated Resolved Time COVID19 Pending 07/24/2020 07/24/2020 07/25/2020 4:38 AM CDT documented as of this encounter Care Teams Director Day Care Center Relationship Specialty Start Date End Date Jake Villegas M.D. PCP - General 06/14/[address] [place] [address] documented as of this encounter
--- OUTSIDE RECORDS SUMMARY | 2022-03-07 20:13 | XMS_ITS | Encounter Summary ---
:1994 Author Organization [facility] [place] [address] Care Team Providers Name Role Phone Jake Villegas M.D. Primary Care Provider Encounter Details Date Type Department Care Team Description 11/20/2020 Orders Only [facility] Shalini [facility]leg[facility] M.D. [address] [place], [place] [phone] (Wo rk) Social History [...] on filedocumented in this encounter Care Teams Government Services Professional Relationship Specialty Start Date End Date Jake Villegas M.D. PCP - General 06/14/20 [address] [place] [address] documented as of this encounter
--- OUTSIDE RECORDS SUMMARY | 2022-03-07 20:13 | XMS_ITS | Encounter Summary ---
:1994 Author Organization [facility] Address [address] [place] [address] Care Team Providers Name Role Phone Zaynab Roberts M.D. Primary Care Provider [phone] Encounter Details Date Type Department Care Team Description 05/07/2020 Orders Only [facility] Zaynab Peterson M.D. [address] [place], [place] [address] (Wo rk) Social History [...] on filedocumented in this encounter Care Teams Vacuum Repairer Relationship Specialty Start Date End Date Zaynab Roberts M.D. PCP - General 10/16/16 06/13/[address] [address] documented as of this encounter
--- OUTSIDE RECORDS SUMMARY | 2022-03-07 20:13 | XMS_ITS | Encounter Summary ---
:1994 Author Organization [facility] [place] [address] Care Team Providers Name Role Phone Zaynab Roberts M.D. Primary Care Provider [phone] Encounter Details Date Type Department Care Team Description 09/07/2017 Nurse Only Department of Family Rabia Null, Medicine, [facility] in [facility] [address] [address] [place] [address] Social History Tobacco Use Types Packs/Day [...] athologist Signature TB Skin Test 0 [facility] Induration 0 mm [facility] Specimen (Source) Anatomical Collection Method Collection Time Re ceived Time Location / / Volume Laterality Other, Specify in 09/09/2017 9:08 AM Comments CDT Zaynab Roberts M.D. IMMUNIZATION ORDERABLE S Performing Organization Address City/State/ZIP Code Phon e Number [facility] OCCUPATIONAL MEDICINE [address] [place] [address] documented in this encounter Visit Diagnoses Diagnosis Preplacement Exam documented in this encounter Care Teams Heel Compressor Relationship Specialty Start Date End Date Zaynab Roberts M.D. PCP - General 10/16/16 06/13/20 [address] [place] [address] documented as of this encounter
--- OUTSIDE RECORDS SUMMARY | 2022-03-07 20:13 | XMS_ITS | Encounter Summary ---
:1995 Author Organization [facility] [place] [address] Care Team Providers Name Role Phone Zaynab Roberts M.D. Primary Care Provider [phone] Reason for Visit Reason Comments Communication Encounter Details Date Type Department Care Team Description 08/31/2017 Clinical Communication Department of 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 Please enter order and call when ready to schedule. documented in this encounter Plan of Treatment Not on filedocumented as of this encounter Visit Diagnoses Not on filedocumented in this encounter Care Teams Gear Hobber Set Up Operator Relationship Specialty Start Date End Date Zaynab Roberts M.D. PCP - General 10/16/16 06/13/20 [address] [place] [address] documented as of this encounter
--- OUTSIDE RECORDS SUMMARY | 2022-03-07 20:13 | XMS_ITS | Encounter Summary ---
:1994 Author Organization [facility] [place] [address] Care Team Providers Name Role Phone Zaynab Roberts M.D. Primary Care Provider [phone] Encounter Details Date Type Department Care Team Description 09/24/2018 Hospital Encounter Department of Laboratory Laura Montanez Sore Throat Medicine in maria fernanda Madrigal Judy, M.D. [place] [address] [place] [phone] Social History Tobacco Use Types Packs/Day Years [...] Signature Strep Group A, Negative Negative 09/24/2018 [facility] PCR, POCT 11:04 AM CDT [facility] LAB Specimen Anatomical Collection Method Collection Time Receive d Time (Source) Location / / Volume Laterality Varies 09/24/2018 11:04 09/24/2018 AM CDT 11:07 AM CDT Generic [facility] LAB POCT ORDERABLES - DEVICE Performing Organization Address City/[facility]/ZIP Code Phon e Number [facility] [address] [place] [address] LAB Strep Group A, PCR, Point of Care (09/24/2018 10:47 AM CDT) Analysis Performed At Patho logist Time Signature Strep Group A, Collected DEFAULT 09/24/2018 [facility] PCR, POCT 10:48 AM CDT [facility] LAB Specimen Anatomical Collection Method Collection Time Receive d Time (Source) Location / / Volume Laterality Varies (Throat) 09/24/2018 10:47 09/25/19 19 AM CDT 10:48 AM CDT Zaynab Roberts M.D. LAB POCT ORDERABLES - DEVICE Performing Organization Address City/[facility]/ZIP Code Phon e Number [facility] [address] [place] [address] LAB documented in this encounter Visit Diagnoses Diagnosis Sore Throat documented in this encounter Care Teams Analytics Consultant Relationship Specialty Start Date End Date Zaynab Roberts M.D. PCP - General 10/16/16 06/13/20 [address] [place] [address] documented as of this encounter
--- OUTSIDE RECORDS SUMMARY | 2022-03-07 20:13 | XMS_ITS | Encounter Summary ---
:1995 Author Organization [facility] [place] [address] Care Team Providers Name Role Phone Zaynab Roberts M.D. Primary Care Provider [phone] Reason for Referral Outpatient (Routine) - Closed Specialty Diagnoses / Procedures Referred By Contact Refer red To Contact Family Medicine YURY Roberts SE, M.D. [address] [address] Referral ID Status Reason Start Date Expiration Date Visits Requ ested Visits Authorized [id number] Closed 03/21/2019 03/20/2020 1 1 GER INVENTORY MANAGEMENT Encounter Details Date Type Department Care Team Description 03/21/2019 Orders Only [facility] PCP [facility] Zaynab Peterson M.D. [address] [phone] (Wo rk) Social History [...] Name Type Priority Associated Diagnoses [facility] Outpatient Referral Routine Expec kayla: office visit 04/04/2019, (clinic) Expires: 03/21/2022 documented as of this encounter Visit Diagnoses Not on filedocumented in this encounter Care Teams Home Care Physical Therapist Relationship Specialty Start Date End Date Zaynab Roberts M.D. PCP - General 10/16/16 06/13/[address] [phone] documented as of this encounter
--- OUTSIDE RECORDS SUMMARY | 2022-03-07 20:13 | XMS_ITS | Encounter Summary ---
:1995 Author Organization [facility] [place] [address] Care Team Providers Name Role Phone Zaynab Roberts M.D. Primary Care Provider [phone] Encounter Details Date Type Department Care Team Description 08/31/2017 Orders Only Department of Family Norma Pre placement Exam Medicine, Zaynab Kulkarni, (Primary Dx) Clinic, in [place] Madrigal [place] [address] [address] [phone] Social History Tobacco Use Types Packs/Day Years [...] P athologist Signature TB Skin Test 0 [facility] Induration 0 mm [facility] Specimen (Source) Anatomical Collection Method Collection Time Re ceived Time Location / / Volume Laterality Other, Specify in 09/09/2017 9:08 AM Comments CDT Zaynab Roberts M.D. IMMUNIZATION ORDERABLE S Performing Organization Address City/State/ZIP Code Phon e Number [facility]CC[facility]ATIONAL [facility]IC[facility] [address] [place] [address] documented in this encounter Visit Diagnoses Diagnosis Preplacement Exam - Primary documented in this encounter Care Teams Accounting Practice Manager Relationship Specialty Start Date End Date Zaynab Roberts M.D. PCP - General 10/16/16 06/13/20 [address], [place] [phone] documented as of this encounter
--- OUTSIDE RECORDS SUMMARY | 2022-03-07 20:13 | XMS_ITS | Encounter Summary ---
:1995 Author Organization [facility] [place] [address] Care Team Providers Name Role Phone Zaynab Roberts M.D. Primary Care Provider [phone] Encounter Details Date Type Department Care Team Description 04/09/2020 Patient Self-Triage [facility] Symptom Business Objects Architect, Provider Social History Tobacco Use Types Packs/Day [...] on filedocumented in this encounter Care Teams Assisted Living Housekeeper Relationship Specialty Start Date End Date Zaynab Roberts M.D. PCP - General 10/16/16 06/13/20 [address] [place] [address] documented as of this encounter
--- OUTSIDE RECORDS SUMMARY | 2022-03-07 20:13 | XMS_ITS | Encounter Summary ---
:1995 Author Organization [facility] [place] [address] Care Team Providers Name Role Phone Jake Villegas M.D. Primary Care Provider Reason for Referral Specialty Diagnoses / Procedures Referred By Contact Refer red To Contact Jake Villegas M.D . [facility] Region [address] [place] [address] Referral ID Status Reason Start Date Expiration Date Visits Requ ested Visits Authorized L EQUIPMENT MAINTENANCE SUPERVISOR Encounter Details Date Type Department Care Team Description 03/30/2021 Orders Only [facility] Shalini Villegas M.D. [address] [place] [phone] (Wo rk) Social History Tobacco [...] on filedocumented in this encounter Care Teams Shellacker Relationship Specialty Start Date End Date Jake Villegas M.D. PCP - General 06/14/[address] [place] [address] Megan Ethan, [place] [address] documented as of this encounter
--- OUTSIDE RECORDS SUMMARY | 2022-03-07 20:13 | XMS_ITS | Encounter Summary ---
:1994 Author Organization [facility] [place] [address] Care Team Providers Name Role Phone Zaynab Roberts M.D. Primary Care Provider [phone] Encounter Details Date Type Department Care Team Description 04/06/2018 Clinical Communication Department of [facility] Noah Neumann, Medicine, Bowie L.P.N. [facility], in [facility] [address] [place], [place] [address] [address] [place], [place] [phone] [address] (Work) [phone] Social History Tobacco Use Types Packs/Day Years Used Date Smoking Tobacco: Never Smokeless Tobacco: Never Alcohol Use Standard Drinks/Week Comments Yes 0 (1 standard drink = 0.6 oz pure alcoho l) occasional Sex Assigned at Date Recorded Female 07/27/2019 2:28 PM CDT documented as of this encounter Miscellaneous Notes Telephone Encounter - Kelli Neumann L.P.N. - 04/09/2018 11:59 AM SUPPLY CHAIN TECHNICIAN Patient requesting upper gi endoscopy be completed at [facility] with patient returning call to clinic to schedule pre op appointment LY CHAIN TECHNICIAN Telephone Encounter - Toyin Pierre L.P.N. - 04/08/2018 8:52 AM SUPPLY CHAIN TECHNICIAN Left msg to return my call LY CHAIN TECHNICIAN Telephone Encounter - Zaynab Roberts M.D. - 04/07/2018 6:22 PM SUPPLY CHAIN TECHNICIAN . LY CHAIN TECHNICIAN Telephone Encounter - Zaynab Roberts M.D. - 04/06/2018 12:22 PM CST Inform Chandrika that the next step is to use daily omeprazole 20 mg once daily, upper GI endoscopy,consider GI consult. Please arrange for upper GI endoscopy LY CHAIN TECHNICIAN Telephone Encounter - Kelli Neumann L.P.N. - 04/06/2018 11:43 AM SUPPLY CHAIN TECHNICIAN Call received from patients mom oralia asking what the next step is or plan of care for patient due toabdominal pain continuing LY CHAIN TECHNICIAN documented in this encounter Plan of Treatment Not on filedocumented as of this encounter Visit Diagnoses Not on filedocumented in this encounter Care Teams Quiller Hand Relationship Specialty Start Date End Date Zaynab Roberts M.D. PCP - General 10/16/16 06/13/[address] [address] documented as of this encounter
--- OUTSIDE RECORDS SUMMARY | 2022-03-07 20:13 | XMS_ITS | Encounter Summary ---
:1994 Author Organization [facility] Address [address] [place] [address] Care Team Providers Name Role Phone Jake Villegas M.D. Primary Care Provider Reason for Visit Reason Comments COVID Inquiry Encounter Details Date Type Department Care Team Description 07/24/2020 Clinical Communication Central Appointment [facility]iloedMARTHA [facility] Office in [address] [phone] Social History Tobacco Use Types Packs/Day Years Used Date Smoking Tobacco: Never Smokeless Tobacco: Never Alcohol Use Standard Drinks/Week Comments Yes 0 (1 standard drink = 0.6 oz pure alcoho l) occasional Sex Assigned at Date Recorded Female 07/27/2019 2:28 PM CDT documented as of this encounter Miscellaneous Notes Telephone Encounter - Bryan Arce P - 07/24/2020 8:20 AM CDT What is [...] LABORATORY CONFIRMED case ofCOVID-19?: Yes exposure noted. [place] patient, instruct to quarantine, testing indicated (End Screening) Testing Recommendation Endpoint Is testing recommended? : Recommended to test Plan: Endpoint recommendation: Testing indicated, advised to be swabbed for COVID-19 Only , sent to [place] located at [address] [place] [address]. The entrance is on the north side of the building. You must call [phone] during the hours of 7am to 6 [...] sending patient for testing in [facility], route encounter to the correct testing pool. documented in this encounter Plan of Treatment Not on filedocumented as of this encounter Visit Diagnoses Not on filedocumented in this encounter Care Teams Sleeve Fixer Relationship Specialty Start Date End Date Jake Villegas M.D. PCP - General 06/14/[address] [place] [phone] documented as of this encounter
--- OUTSIDE RECORDS SUMMARY | 2022-03-07 20:13 | XMS_ITS | Encounter Summary ---
:1995 Author Organization [facility] [place] [address] Care Team Providers Name Role Phone Zaynab Roberts M.D. Primary Care Provider Reason for Referral Outpatient (Routine) - Closed Specialty Diagnoses / Procedures Referred By Contact Refer red To Contact Ophthalmology Stephen Jimenez Jr., M.D. [facility] Region [address] [place] [address] Referral ID Status Reason Start Date Expiration Date Visits Requ ested Visits Authorized [id number] Closed 10/08/2017 10/08/2018 1 1 Reason for Visit Reason Comments Eye Exam Appointment Request (Routine) - Closed Specialty Diagnoses / Procedures Referred By Contact Refer red To Contact Ophthalmology Referral ID Status Reason Start Date Expiration Date Visits Requ ested Visits Authorized [id number] Closed 09/21/2017 03/20/2018 1 1 Encounter Details Date Type Department Care Team Description 10/08/2017 Comprehensive Visit Department of Stephen Jimenez Vitreous Ophthalmology brayan Chamberlain Jr., M.D. Bilateral (Primary [place], [place] [address]) [address] [place] [phone] Social History Tobacco Use Types Packs/Day Years [...] Primary documented in this encounter Care Teams Refrigeration Insulator Relationship Specialty Start Date End Date Zaynab Roberts M.D. PCP - General 10/16/16 06/13/[address] [address] documented as of this encounter
--- OUTSIDE RECORDS SUMMARY | 2022-03-07 20:13 | XMS_ITS | Encounter Summary ---
:1994 Author Organization [facility] [place] [address] Care Team Providers Name Role Phone Jake Villegas M.D. Primary Care Provider Reason for Visit Reason Comments Med Refill Encounter Details Date Type Department Care Team Description 08/25/2020 Refill Department of Family Medicine, Laura Christa Med Refill [facility], in Zaynab Madrigal M.D. [place] [address] [place] [address] [place] [address] [phone] Social History Tobacco Use Types Packs/Day Years [...] on filedocumented in this encounter Care Teams Motel Keeper Relationship Specialty Start Date End Date Jake Villegas M.D. PCP - General 06/14/[address] [place] [address] [place] [phone] documented as of this encounter
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
--- OUTSIDE RECORDS SUMMARY | 2022-03-07 20:14 | XMS_ITS | Encounter Summary ---
:1995 Author Organization [facility] [place] [address] Care Team Providers Name Role Phone Zaynab Roberts M.D. Primary Care Provider Encounter Details Date Type Department Care Team Description 05/07/2017 Abstract Department of Family Medicine, Provider, [facility], in [address] [address] Social History Tobacco Use Types Packs/Day Years Used Date Smoking Tobacco: Never Sex Assigned at Date Recorded Female 07/27/2019 2:28 PM CDT documented as of this encounter Plan of Treatment Not on filedocumented as of this encounter Visit Diagnoses Not on filedocumented in this encounter Care Teams Engineering Administrator Relationship Specialty Start Date End Date Zaynab Roberts M.D. PCP - General 10/16/16 06/13/20 [address] [place] [address] documented as of this encounter
--- OUTSIDE RECORDS SUMMARY | 2022-03-07 20:14 | XMS_ITS | Encounter Summary ---
:1994 Author Organization [facility] [place] [address] Care Team Providers Name Role Phone Unavailable Primary Care Provider Unavailable Encounter Details Date Type Department Care Team Description 04/11/2015 Hospital Encounter HX [facility] INTERNMED Jaycob Sood M.D. [address] [place] [phone] (Wo rk) Social History Tobacco Use Types Packs/Day Years Used Date Smoking Tobacco: Never Assessed Sex Assigned at Date Recorded Female 07/27/2019 2:28 PM CDT documented as of this encounter Last Filed Vital Signs Vital Sign Reading Time Taken Comments Blood Pressure 112/61 04/11/2015 1:41 PM EXTERNAL RELATIONS MANAGER Pulse 86 04/11/2015 1:41 PM EXTERNAL RELATIONS MANAGER Temperature - - Respiratory Rate 14 04/11/2015 1:41 PM EXTERNAL RELATIONS MANAGER Oxygen Saturation - - Inhaled Oxygen Concentration - - Weight 69.5 kg (153 lb 3.5 oz) 04/11/2015 1:41 PM EXTERNAL RELATIONS MANAGER Height 173 cm (5' 8.11) 04/11/2015 1:41 PM EXTERNAL RELATIONS MANAGER Body Mass Index 23.22 04/11/2015 1:41 PM EXTERNAL RELATIONS MANAGER documented in this encounter Progress Notes Frankie Sood M.D. - 04/11/2015 1:31 PM CST [id number] Chandrika presents today with the results for [...] step. I offered her to go to [place] and she does not want to do that yetat this point. Frankie Sood M.D./[place] Electronically Signed By: FRANKIE SOOD MD On: 04/12/2015 07:46 AM Source: [facility] MHSDOLBEYNONRADSYS Document Id: [id number] RNAL RELATIONS MANAGER documented in this encounter Nursing Notes Shahida Arreola L.PJoshuaNJoshua - 04/11/2015 2:04 PM CST HIDA order for HIDA scan faxed to [facility] Electronically Signed By: SHAHIDA ARREOLA LPN On: 04/11/2015 02:04 PM Source: [facility] POWERCHART Document Id: [id number] RNAL RELATIONS MANAGER documented in this encounter Miscellaneous Notes Telephone Encounter - Conversion, Historical Provider Ser - 04/17/2015 1:01 PM CST *Phone Message Document Contains Addenda Addendum by SHAHIDA ARREOLA LPN on 17 April 2015 14:10:41 EXTERNAL RELATIONS MANAGER called with results Addendum by PRICILA BEDOLLA CNP on 17 April 2015 14:08:53 EXTERNAL RELATIONS MANAGER From: PRICILA BEDOLLA CNP To: SHAHIDA ARREOLA LPN; Sent: 04/17/2015 14:08:53 EXTERNAL RELATIONS MANAGER Subject: RE: *Phone Message HIDA scan is normal. Addendum by SHAHIDA ARREOLA LPN on 17 April 2015 14:05:49 EXTERNAL RELATIONS MANAGER From: SHAHIDA ARREOLA LPN ( [place] Nurse) To: PRICILA BEDOLLA CNP; Sent: 04/17/2015 14:05:49 EXTERNAL RELATIONS MANAGER Subject: FW: *Phone Message called for results From: FAVIAN THEODORE ( [facility] [employer] Worker) To: [place] Nurse; Sent: 04/17/2015 13:01:43 EXTERNAL RELATIONS MANAGER Subject: *Phone Message Caller is: ( x ) Patient ( ) Mother ( ) Father ( ) Spouse ( ) Daughter ( ) Son ( ) Pharmacy ( ) Other: Physician: Patient Reason for Call: Message: Patient called to leave message with her provider's nurse (Indigo) Patient would like theresults of her tests she had done on Thursday. Call patient at [phone] Advice/Action: Source used: ( ) Verbalizes understanding [...] back cell phone number ( ) Source: [facility] POWERCHART Document Id: [id number] Miscellaneous - Frankie Sood M.D. - 04/11/2015 2:03 PM CST Ambulatory Patient Summary [address] [place] [phone] Visit Information Name: CHANDRIKA ESQUEDA [facility] Number: [id number] Current Date: 04/11/2015 14:03:29 [...] forms include: ?? A durable power of board runner for health care or health care proxy form. This form allows you to name a person to make treatment decisions on your behalf when you cant. This person is often called a health care proxy, medical or health care power of board runner, surrogate decision maker, or agent. ?? A [...] health care team members, such as a licensed clinical social worker or digital measurement advisor. ?? 1846-8630 [facility], [address] [place] [address]. All rights reserved. This information is not [...] if you dont have one. Go to [email or web address] and click on Create Your Account. Then, follow the directions to complete the online form. Youll be asked for your [facility] number which you can find at the top of this document. Your Goals/Additional instructions: This document has images extracted. Please consider using [employer] for all your patient education needs. Source: [facility] POWERCHART Document Id: [id number] RNAL RELATIONS MANAGER Miscellaneous - Frankie Sood M.D. - 04/11/2015 2:03 PM CST Ambulatory Discharge Medication List [address] [id number] Visit Information Name: CHANDRIKA ESQUEDA [facility] Number: [id number] Visit Date: 04/11/2015 14:03:28 [...] MD Signed On:11-APR-2015 14:01:51 Additional Information: Source: [facility] POWERCHART Document Id: [id number] RNAL RELATIONS MANAGER Miscellaneous - Emelina Aleman, C.M.A. 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 : No EMELINA ALEMAN [facility] - 04/11/2015 13:41 EXTERNAL RELATIONS MANAGER Subjective Pain Symptoms : No EMELINA ALEMAN [facility] - 04/11/2015 13:41 EXTERNAL RELATIONS MANAGER Dependent Habits Exposure to Tobacco Smoke : Other: Never Smoking Status : Never smoker Tobacco 2A : No EMELINA ALEMAN [facility] - 04/11/2015 13:41 EXTERNAL RELATIONS MANAGER Caffeine Use Grid Caffeine Use : Current Type : Chocolate, Soft drinks Frequency : Occasionally EMELINA ALEMAN [facility] - 04/11/2015 13:41 EXTERNAL RELATIONS MANAGER Recreational Drug Use Grid Drug Use : None EMELINA ALEMAN [facility] - 04/11/2015 13:41 EXTERNAL RELATIONS MANAGER Source: [facility] POWERCHART Document Id: [id number] EXTERNAL RELATIONS MANAGER!37 RNAL RELATIONS MANAGER documented in this encounter Plan of Treatment Not on filedocumented as of this encounter Visit Diagnoses Not on filedocumented in this encounter
--- OUTSIDE RECORDS SUMMARY | 2022-03-07 20:14 | XMS_ITS | Encounter Summary ---
:1995 Author Organization [facility] [place] [address] Care Team Providers Name Role Phone Unavailable Primary Care Provider Unavailable Encounter Details Date Type Department Care Team Description 04/04/2016 Hospital Encounter HX NO MAPPING Zaynab Roberts M.D. [address] [place], [place] [phone] (Wo rk) Social History Tobacco Use Types Packs/Day Years Used Date Smoking Tobacco: Never Assessed Sex Assigned at Date Recorded Female 07/27/2019 2:28 PM CDT documented as of this encounter Miscellaneous Notes Miscellaneous - Conversion, Historical Provider Ser - 04/04/2016 11:59 PM CORK MIXER Coding Summary-Paper Based CODING DATE: 04/16/2016 FINAL [facility] STATUS: * Discharged to Home or Self [...] HALL Date Saved: 04/16/2016 10:13 am Source: [employer] Document Id: [id number] documented in this encounter Plan of Treatment Not on filedocumented as of this encounter Visit Diagnoses Not on filedocumented in this encounter
--- OUTSIDE RECORDS SUMMARY | 2022-03-07 20:14 | XMS_ITS | Encounter Summary ---
:1995 Author Organization [facility] [place] [address] Care Team Providers Name Role Phone Unavailable Primary Care Provider Unavailable Encounter Details Date Type Department Care Team Description 09/17/2015 Hospital Encounter HX [facility] XPRESSC[facility] Nuria Gastelum, P.A.-C. [address], [address] [place], [place] [address] (Wo rk) Social History [...] Gastelum, P.A.-C. - 09/17/2015 1:05 PM CDT [id number] [facility] PATIENT NAME: Chandrika Esqueda CHIEF [...] warm, itching, and getting larger. She denies ihia-pra-ngvdhck treatments. Otherwise, she is asymptomatic. CURRENT MEDICATIONS [...] with topical Benadryl cream or 1% hydrocortisone [id number] as directed. I also recommend she take an oral antihistamine such as Zyrtec until complete resolution or until itching stops. Follow up with primary care provider in the next 1-2 his symptoms persist unchanged or worsen. Martin Martinez/shefali Electronically Signed By: BRODERICK GASTELUM PA-C On: 09/17/2015 04:17 PM Source: [facility] MHSDOLBEYNONRADSYS Document Id: [id number] documented in this encounter Miscellaneous Notes Miscellaneous - Broderick Gastelum P.A.-C. - 09/17/2015 1:41 PM CDT Ambulatory Patient Summary [facility] [address] [place] [id number] Visit Information Name: CHANDRIKA ESQUEDA [facility] Number: [id number] Current Date: 09/17/2015 13:41:22 Physicians [...] if you dont have one. Go to [email or web address] and click on Create Your Account. Then, follow the directions to complete the online form. Youll be asked for your [facility] number which you can find at the top of this document. Your Goals/Additional instructions: Source: [facility] POWERCHART Document Id: [id number] Miscellaneous - Broderick Gastelum P.A.-C. - 09/17/2015 1:41 PM CDT Ambulatory Discharge Medication List [address] [id number] Visit Information Name: CHANDRIKA ESQUEDA [facility] Number: [id number] Visit Date: 09/17/2015 13:41:21 Attending [...] PA-C Signed On:17-SEP-2015 13:40:58 Additional Information: Source: [facility] POWERCHART Document Id: [id number] Miscellaneous - Mag Richmond C.M.A. 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 : No [facility] - 09/17/2015 13:19 CDT Subjective Pain Symptoms : No [facility] CMA 09/17/2015 13:19 CDT Dependent Habits Exposure to Tobacco Smoke : Other: Never Smoking Status : Never smoker Tobacco 2A : No Tobacco Use/Currently Using : No Tobacco Use/Last 30 Days : No Tobacco Use/Last 12 months : No [facility] BROADBAND TECHNICIAN - 09/17/2015 13:19 CDT Caffeine Use Grid Caffeine Use : Current Type : Chocolate, Soft drinks Frequency : Occasionally [facility] CMA 09/17/2015 13:19 CDT Recreational Drug Use Grid Drug Use : None [facility] CMA 09/17/2015 13:19 CDT Source: [facility] [employer] Document Id: [id number] CDT!38 documented in this encounter Plan of Treatment Not on filedocumented as of this encounter Visit Diagnoses Not on filedocumented in this encounter
--- OUTSIDE RECORDS SUMMARY | 2022-03-07 20:14 | XMS_ITS | Encounter Summary ---
:1995 Author Organization [facility] [place] [address] Care Team Providers Name Role Phone Zaynab Roberts M.D. Primary Care Provider Encounter Details Date Type Department Care Team Description 03/03/2017 Orders Only Department of Family Norma Scr eening Examination Diabetes Mellitus; Medicine in [place] Judy, León pandya Medical Examination Adult [facility].DJoshua [address] [facility] [address] [place] [address] [place], [place] [phone] [address] Social History Tobacco Use Types Packs/Day Years Used Date Smoking Tobacco: Never Sex Assigned at Date Recorded Female 07/27/2019 2:28 PM CDT documented as of this encounter Plan of Treatment Not on filedocumented as of this encounter Visit Diagnoses Diagnosis Screening Examination Diabetes Mellitus General Medical Examination Adult documented in this encounter Care Teams Die Grinder Relationship Specialty Start Date End Date Zaynab Rboerts M.D. PCP - General 10/16/16 06/13/20 [address] [place] [phone] documented as of this encounter
--- OUTSIDE RECORDS SUMMARY | 2022-03-07 20:14 | XMS_ITS | Encounter Summary ---
:1995 Author Organization [facility] [place] [address] Care Team Providers Name Role Phone Margarita Roberts M.D. Primary Care Provider [phone] Encounter Details Date Type Department Care Team Description 02/25/2017 Hospital Encounter HX [facility] Margarita Peterson M.D. [address] [place], [place] [phone] (Wo rk) Social History [...] Result Letter February 26, 2017 CHANDRIKA ESQUEDA [address] [facility] [id number] Dear Beatriz LICONA, Your thyroid test is normal. Result Name Current Result Normal Range TSH, Sensitive-Higgins (mIU/L) 1.9 02/25/2017 0.3-4.2 - Sincerely, MARGARITA TRUJILLO [address] [place] [address] Electronic Signature Electronically Signed By: MARGARITA PALAFOX MD On: February 26, 2017 This document has images extracted. Source: [facility] POWERCHART Document Id: [id number] Miscellaneous - Margarita Roberts M.D. - 02/25/2017 8:12 PM CDT Custom Result Letter February 25, 2017 CHANDRIKA ESQUEDA [address] [facility] [id number] Dear Beatriz LICONA, Your blood counts are [...] 150 - 450 Sincerely, MARGARITA TRUJILLO [address] [place] [address] Electronic Signature Electronically Signed By: MARGARITA PALAFOX MD On: February 25, 2017 This document has images extracted. Source: [facility] POWERCHART Document Id: [id number] documented in this encounter Plan of Treatment [...] X109L Erythrocytes 4.41 3.90 - 5.03 POWERCHART [id number] Hemoglobin 12.9 12.0 - 15.5 POWERCHART GDL [...] e Number POWERCHART POWERCHART NA Thyroid Function [place] (02/25/2017 9:44 AM CDT) P athologist Signature TSH, Sensitive 1.9 0.3 - 4.2 POWERCHART JENELEL Comment: Test Performed by: [address] [address] Specimen (Source) Anatomical Collection Method Collection Time [...] for FH and FDB is available adonisu [facility]: FH/ADH Genetic Reflex Almazan [...] at or the on-line test catalog at [employer] for information about how to order these [...] 15 MMOLL POWERCHART HXeGFR (MDRD) >60 >=60 [id number] POWERCHART eGFR Black/ >60 >=60 [id number] POWERCHART Specimen (Source) Anatomical Collection Method Collection Time Re ceived Time Location / / Volume Laterality Blood 02/25/2017 9:44 AM CDT Margarita Roberts M.D. LAB BLOOD ADD-ON Performing Organization Address City/State/ZIP Code Phon e Number POWERCHART POWERCHART NA documented in this encounter Visit Diagnoses Not on filedocumented in this encounter Care Teams Wind Turbine Performance Engineer Relationship Specialty Start Date End Date Margarita Roberts M.D. PCP - General 10/16/16 06/13/[address], [place] [address] documented as of this encounter
--- OUTSIDE RECORDS SUMMARY | 2022-03-07 20:14 | XMS_ITS | Encounter Summary ---
:1995 Author Organization [facility] [place] [address] Care Team Providers Name Role Phone Unavailable Primary Care Provider Unavailable Encounter Details Date Type Department Care Team Description 02/15/2015 Hospital Encounter HX [facility]HB FAMILYPRA Margarita Barr i, M.D. [address] [place] [phone] (Wo rk) Social History Tobacco Use Types [...] Skelton M.D. - 02/15/2015 2:11 PM CDT [id number] CHIEF COMPLAINT/ REASON FOR VISIT Lump behind [...] behalf by Hyacinth Moreno, a trained medical scientific officer. The creation of this record is based on the scribe's personal observations and the provider's statements to them. This document has been ch ecked and approved by the attending provider. Margarita Goodwin M.D./ Electronically Signed By: MARGARITA SKELTON MD On: 02/16/2015 10:59 PM Source: [facility] MHSDOLBEYNONRADSYS Document Id: [id number] documented in this encounter Miscellaneous Notes Miscellaneous - Irma Duran, L.P.N. 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 : No IRMA DURAN LPN - 02/15/2015 14:25 CDT Subjective Pain Symptoms : Yes IRMA DURAN LPN - 02/15/2015 14:25 CDT Pain Scale Pain Scale Verbal 0-10 : Open IRMA DURAN [facility] - 02/15/2015 14:25 CDT Pain Pain Assessment [...] Grid Drug Use : None IRMA DURAN [facility] 02/15/2015 14:25 CDT [facility] Document Id: [id number] CDT!43 documented in this encounter Plan of Treatment Not on filedocumented as of this encounter Visit Diagnoses Not on filedocumented in this encounter
--- OUTSIDE RECORDS SUMMARY | 2022-03-07 20:14 | XMS_ITS | Encounter Summary ---
:1995 Author Organization [facility] [place] [address] Care Team Providers Name Role Phone Unavailable Primary Care Provider Unavailable Encounter Details Date Type Department Care Team Description 02/18/2016 Hospital Encounter HX [facility] FBHB FAMILYPRA Brandin Menezes P.A.-C. [address] [place] [phone] (Wo rk) Social History Tobacco Use Types [...] Menezes P.A.-C. - 02/18/2016 1:45 PM CDT [id number] CHIEF COMPLAINT/REASON FOR VISIT Sinus congestion and [...] MENEZES PA-C On: 02/20/2016 08:56 AM Source: [facility] MHSDOLBEYNONRADSYS Document Id: [id number] documented in this encounter Miscellaneous Notes Miscellaneous [...] 0 Substitutions Allowed Route To Pharmacy - [facility], [place], [place] Signed by MARGARITA PALAFOX MD 02/21/2016 17:14:24 From: SHREYA POST RN To: MARGARITA PALAFOX MD; Sent: 02/21/2016 10:22:20 CDT Subject: refill request - Reclipsen On hold pending signature Order:desogestrel-ethinyl estradiol (Desogen 0.15 mg-0.03 mg oral tablet) 1 tab(s) PO Daily Due for Annual Visit with Primary Care Provider. Qty: 28 tab(s) Refills: 0 Substitutions Allowed Route To Pharmacy - [facility] [place] Caller is: ( ) [...] Call to Pharmacy ( ) Patient will lemon picker Script ( ) Mail Rxto Patient Source: [facility] POWERCHART Document Id: [id number] Electronically signed by Taryn [facility] Prawn Trawler Hand [id number] at 09/28/2016 10:28 AM CDT Miscellaneous - Rupert Menezes PJoshuaATyrone. - 02/18/2016 2:28 PM CDT Ambulatory Patient Summary [place] [address] [facility] [id number] Visit Information Name: CHANDRIKA ESQUEDA [facility] Number: [id number] Current Date: 02/18/2016 14:28:40 Physicians [...] day x 10 day(s) New Routed to [address] [address] desogestrel-ethinyl estradiol (Desogen 0.15 mg-0.03 [...] if you dont have one. Go to [email or web address] and click on Create Your Account. Then, follow the directions to complete the online form. Youll be asked for your [facility] number which you can find at the top of this document. Your Goals/Additional instructions: Source: [facility] POWERCHART Document Id: [id number] Miscellaneous - Rupert Menezes P.A.-C. - 02/18/2016 2:28 PM CDT Ambulatory Discharge Medication List [address] [place], [place] [phone] Visit Information Name: LILLY CHANDRIKA PACHECO [facility] Number: [id number] Current Date: 02/18/2016 14:28:40 Attending [...] day x 10 day(s) New Routed to [facility] [address] [place], [place] [id number] desogestrel-ethinyl estradiol (Desogen 0.15 mg-0.03 mg oral [...] PA-C Signed On:18-FEB-2016 14:28:35 Additional Information: Source: [facility] POWERCHART Document Id: [id number] Miscellaneous - Irma Duran L.P.N. 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
--- OUTSIDE RECORDS SUMMARY | 2022-03-07 20:14 | XMS_ITS | Encounter Summary ---
:[address] [facility] [place] [address] Care Team Providers Name Role Phone Unavailable Primary Care Provider Unavailable Encounter Details Date Type Department Care Team Description 04/04/2016 Hospital Encounter HX [facility] FAMILYPRA Laura-Margarita Brooke M.D. [address] [place], [place] [phone] (Wo rk) Social History Tobacco Use Types Packs/Day Years Used Date Smoking Tobacco: Never Assessed Sex Assigned at Date Recorded Female 07/27/2019 2:28 PM CDT documented as of this encounter Last Filed Vital Signs Vital Sign Reading Time Taken Comments Blood Pressure 106/56 04/04/2016 1:12 PM K [employer] Pulse 84 04/04/2016 1:12 PM K [employer] Temperature - - Respiratory Rate 16 04/04/2016 1:12 PM K [employer] Oxygen Saturation - - Inhaled Oxygen Concentration - - Weight 74.9 kg (165 lb 0.2 oz) 04/04/2016 1:12 PM K [employer] Height 169 cm (5' 6.54) 04/04/2016 1:12 PM K [employer] Body Mass Index 26.21 04/04/2016 1:12 PM K [employer] documented in this encounter Miscellaneous Notes Miscellaneous - Margarita Skelton M.D. - 04/10/2016 5:28 PM K [employer] PROFESSION[employer] Custom Result Letter April 10, 2016 CHANDRIKA ESQUEDA [address] [facility] [id number] Dear CHANDRIKA ESQUEDA, Your pap is normal. Result Name Current Result LEAD PRESSMAN ROTO GRAVURE PRINTING Cytology. 04/04/2016 Chlamydia by Nucleic Acid Amplification 04/04/2016 Sincerely, MARGARITA TRUJILLO [address] [place] [address] Electronic Signature Electronically Signed By: MARGARITA SKELTON MD On: April 10, 2016 This document has images extracted. Source: [facility] Front Desk HQ Document Id: [id number] Miscellaneous - Kelli Neumann, L.P.N. - 04/07/2016 11:49 AM CST PHQ-9 PHQ-9 Entered On: 04/07/2016 11:49 K [employer] Performed On: 04/07/2016 11:49 K [employer] PROFESSION[employer] by KELLI NEUMANN LPN PHQ-9 Little interest [...] 0 KELLI NEUMANN LPN - 04/07/2016 11:49 K [employer] PROFESSIONAL Source: [facility] Front Desk HQ Document Id: [id number] K 12 S[employer] PROFESSIONAL!12 K [employer] S[employer] PROFESSIONAL Suricellshannon - Margarita Skelton M.D. - 04/05/2016 1:10 PM K [employer]ESSION[employer] Ambulatory Discharge Medication List [address] [id number] Visit Information Name: LILLY CHANDRIKA PACHECO [facility] Number: [id number] Current Date: 04/05/2016 13:10:53 Attending [...] Visit with Primary Care Provider. Routed to [address] [address] Stop Taking the Following Medications: Medication list [...] MD Signed On:05-APR-2016 13:10:51 Additional Information: Source: [facility] POWERCHART Document Id: [id number] K [employer] Miscellaneous - Margarita Skelton M.D. - 04/05/2016 1:10 PM K [employer] Ambulatory Patient Summary [address] [id number] Visit Information Name: CHANDRIKA ESQUEDA JUNIOR [facility] Number: [id number] Current Date: 04/05/2016 13:10:53 Physicians [...] Visit with Primary Care Provider. Routed to [facility] [address] Stop Taking the Following Medications: Medication list [...] form. Youll be asked for your [facility] number which you can find at the top of this document. Your Goals/Additional instructions: Source: [facility] POWERCHART Document Id: [id number] K [employer] Miscellaneous - Hortensia Schmitz L.PJoshuaN. 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 : No HORTENSIA SCHMITZ LPN - 04/04/2016 13:12 K [employer] Subjective Pain Symptoms : No HORTENSIA SCHMITZ LPN - 04/04/2016 13:12 K [employer] Dependent Habits Exposure to Tobacco Smoke : Other: Never Smoking Status : Never smoker Tobacco 2A : No Tobacco Use/Currently Using : No Tobacco Use/Last 30 Days : No Tobacco Use/Last 12 months : No HORTENSIA SCHMITZ LPN - 04/04/2016 13:12 K [employer] Caffeine Use Grid Caffeine Use : Current Type : Chocolate, Soft drinks Frequency : Occasionally HORTENSIA SCHMITZ LPN - 04/04/2016 13:12 K [employer] Recreational Drug Use Grid Drug Use : None HORTENSIA SCHMITZ LPN - 04/04/2016 13:12 K [employer] Source: [facility] POWERCHART Document Id: [id number] K [employer]AL!40 K [employer] PROF[employer] documented in this encounter Plan of Treatment Not on filedocumented as of this encounter Procedures Procedure Name Priority Date/Time Associated Comments Diagnosis CHLAMYDIA TRACHOMATIS Routine 04/04/2016 1:58 PM Results for this AMPLIFIED RNA K [employer] procedure are in the results section. PATHOLOGY LEAD PRESSMAN ROTO GRAVURE PRINTING Routine 04/04/2016 12:00 Results fo r this CYTOLOGY AM K [employer] procedure are i n the results section. documented in this encounter Results Chlamydia Trachomatis Amplified RNA (04/04/2016 1:58 PM K [employer]) Component Value Ref Test Analysis Performed At [facility] gist Range Method Time Signature HXChlamydia by POWERCHART Nucleic Acid Amplification HXFinal There is no POWERCHART standard reference or commercial method for obtaining sensitivity results for this organism. HXAmend Negative for POWERCHART Chlamydia trachomatis by RNA amlifiaction HXAmend Reference: POWERCHART Negative Specimen (Source) Anatomical Collection Method Collection Time Re ceived Time Location / / Volume Laterality Cervix/Endocervix 04/04/2016 1:58 PM K [employer] Margarita Roberts M.D. LAB MICROBIOLOGY - GEN ERAL ORDERABLES Performing Organization Address City/[facility]/ZIP Code Phon e Number POWERCHART Pathology LEAD PRESSMAN R[employer] G[employer] PRINTING Cytology (04/04/2016 12:00 AM K [employer]) Specimen (Source) Anatomical Location Collection Method / Collectio n Time Received Time / Laterality Volume 04/04/2016 Narrative [facility] LAB - 04/09/2016 12:26 PM K [employer] [facility] in [place] [address] [facility] [address] [place], [place] ??[address] Patient Name: CHANDRIKA ESQUEDA Patient ID #: [id number] Collected: 04/04/2016 Address: [facility]/State/Zip: [address] [place], [place] ??[id number] Received: Reported: 04/07/2016 04/09/2016 Soc. Sec. #: ?/Age/Sex 1995 (Age: 21) ??F Physician(s): CORIN TRUJILLO MD Copy To: ? [facility] ??[id number] [address] [facility], ??[place] ??[address] CYTOPATHOLOGY LEAD PRESSMAN ROTO GRAVURE PRINTING REPORT FINAL CYTOLOGIC DIAGNOSIS Pap Smear VCE [...]
--- OUTSIDE RECORDS SUMMARY | 2022-03-07 20:14 | XMS_ITS | Encounter Summary ---
:1995 Author Organization [facility] [place] [address] Care Team Providers Name Role Phone Unavailable Primary Care Provider Unavailable Encounter Details Date Type Department Care Team Description 04/04/2015 Hospital Encounter HX [facility] FB INTERNMED Jaycob Sood M.D. [address] [place] [phone] (Wo rk) Social History Tobacco Use Types Packs/Day Years Used Date Smoking Tobacco: Never Assessed Sex Assigned at Date Recorded Female 07/27/2019 2:28 PM CDT documented as of this encounter Last Filed Vital Signs Vital Sign Reading Time Taken Comments Blood Pressure 108/62 04/04/2015 9:19 AM HEATING MECHANIC Pulse 108 04/04/2015 9:19 AM HEATING MECHANIC Temperature - - Respiratory Rate 14 04/04/2015 9:19 AM HEATING MECHANIC Oxygen Saturation - - Inhaled Oxygen Concentration - - Weight 71.5 kg (157 lb 10.1 oz) 04/04/2015 9:19 AM HEATING MECHANIC Height 173 cm (5' 8.11) 04/04/2015 9:19 AM HEATING MECHANIC Body Mass Index 23.89 04/04/2015 9:19 AM HEATING MECHANIC documented in this encounter Progress Notes Frankie Sood M.D. - 04/04/2015 9:11 AM CST [id number] Chandrika comes today much improved. She feels [...] SOOD MD On: 04/04/2015 03:07 PM Source: [facility] MHSDOLBEYNONRADSYS Document Id: [id number] ING MECHANIC documented in this encounter Miscellaneous Notes Miscellaneous - Frankie Sood M.D. - 04/04/2015 9:30 AM CST Ambulatory Patient Summary [address] [id number] Visit Information Name: CHANDRIKA ESQUEDA [facility] Number: [id number] Current Date: 04/04/2015 09:30:15 Physicians [...] day x 3 day(s) New Routed to [facility] [address] [place] [address] desogestrel-ethinyl estradiol (Desogen 0.15 mg-0.03 mg oral tablet) 1 Tablet(s), Oral, once a day dicyclomine (Bentyl 10 mg oral capsule) 1 cap, Oral, four times a day 30 minutes before meals and atbedtime Routed to [facility] [address] [place] [address] Stop Taking the Following Medications: [...] 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 [id number] [place] [address]. All rights reserved. This information is not [...] if you dont have one. Go to [email or web address] and click on Create Your Account. Then, follow the directions to complete the online form. Youll be asked for your [facility] number which you can find at the top of this document. Your Goals/Additional instructions: Source: [facility] POWERCHART Document Id: [id number] ING MECHANIC Miscellaneous - Frankie Sood M.D. - 04/04/2015 9:30 AM CST Ambulatory Discharge Medication List [address] [id number] Visit Information Name: CHANDRIKA ESQUEDA [facility] Number: [id number] Visit Date: 04/04/2015 09:30:14 Attending [...] day x 3 day(s) New Routed to [facility] [address] [place] [address] desogestrel-ethinyl estradiol (Desogen 0.15 mg-0.03 mg oral tablet) 1 Tablet(s), Oral, once a day dicyclomine (Bentyl 10 mg oral capsule) 1 cap, Oral, four times a day 30 minutes before meals and atbedtime Routed to [facility] [address] [place] [address] Stop Taking the Following Medications: [...] MD Signed On:04-APR-2015 09:27:59 Additional Information: Source: [facility] POWERCHART Document Id: [id number] ING MECHANIC Miscellaneous - Kaleb Aleman C.MJoshuaAJoshua - 04/04/2015 9:19 AM CST 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 : No KALEB ALEMAN CMA - 04/04/2015 9:19 HEATING MECHANIC Subjective Pain Symptoms : No KALEB ALEMAN CMA - 04/04/2015 9:19 HEATING MECHANIC Dependent Habits Exposure to Tobacco Smoke : Other: Never Smoking Status : Never smoker Tobacco 2A : No KALEB ALEMAN CMA - 04/04/2015 9:19 HEATING MECHANIC Caffeine Use Grid Caffeine Use : Current Type : Chocolate, Soft drinks Frequency : Occasionally KALEB ALEMAN CMA - 04/04/2015 9:19 HEATING MECHANIC Recreational Drug Use Grid Drug Use : None KALEB ALEMAN CMA - 04/04/2015 9:19 HEATING MECHANIC Source: [facility] POWERCHART Document Id: [id number] HEATING MECHANIC!40 ING MECHANIC documented in this encounter Plan of Treatment Not on filedocumented as of this encounter Visit Diagnoses Not on filedocumented in this encounter
--- OUTSIDE RECORDS SUMMARY | 2022-03-07 20:14 | XMS_ITS | Encounter Summary ---
:1995 Author Organization [facility] Address [address] [place] [address] Care Team Providers Name Role Phone Zaynab Roberts M.D. Primary Care Provider Encounter Details Date Type Department Care Team Description 06/05/2017 Nurse Triage Department of [facility] Radha Arellano , Medicine, [facility], R.N in [place], [place] [address] [facility] [address] [place] [address] [place] [address] [phone] Social History Tobacco Use Types Packs/Day Years [...] on filedocumented in this encounter Care Teams Nurse Office Relationship Specialty Start Date End Date Zaynab Roberts M.D. PCP - General 10/16/16 06/13/20 [address] [place] [address] documented as of this encounter
--- OUTSIDE RECORDS SUMMARY | 2022-03-07 20:14 | XMS_ITS | Encounter Summary ---
:1995 Author Organization [facility] [place] [address] Care Team Providers Name Role Phone Zaynab Roberts M.D. Primary Care Provider [phone] Reason for Visit Reason Onset Date Comments Med Refill 05/07/2017 Encounter Details Date Type Department Care Team Description 05/07/2017 Clinical Communication Department of [facility] Laura Chang Med [facility] [place] [address] [place] [address] [phone] Social History Tobacco Use Types Packs/Day Years Used Date Smoking Tobacco: Never Sex Assigned at Date Recorded Female 07/27/2019 2:28 PM CDT documented as of this encounter Miscellaneous Notes Telephone Encounter - Berna Wang, RJoshuaNJoshua - 05/07/2017 2:04 PM CST Notified Rx sent to pharmacy. [place] MARKETING MANAGER Telephone Encounter - Zaynab Roberts M.D. - 05/07/2017 2:00 PM RETAIL MARKETING MANAGER done [place] MARKETING MANAGER Telephone Encounter - Joann Fay - 05/07/2017 10:41 AM CST Pts mom Oralia calling regarding refill, pharmacy faxed yesterday, pt is out. Please call back [place] MARKETING MANAGER documented in this encounter Plan of Treatment Not on filedocumented as of this encounter Visit Diagnoses Not on filedocumented in this encounter Care Teams Dietary Services Director Relationship Specialty Start Date End Date Zyanab Roberts M.D. PCP - General 10/16/16 06/13/[address] [place] [address] documented as of this encounter
--- OUTSIDE RECORDS SUMMARY | 2022-03-07 20:14 | XMS_ITS | Encounter Summary ---
:1995 Author Organization [facility] [place] [address] Care Team Providers Name Role Phone Unavailable Primary Care Provider Unavailable Encounter Details Date Type Department Care Team Description 04/05/2015 Hospital Encounter HX [facility] FB INTERNMED Jaycob Sood M.D. [address] [place] [address] [phone] (Wo rk) Social History Tobacco Use Types Packs/Day Years Used Date Smoking Tobacco: Never Assessed Sex Assigned at Date Recorded Female 07/27/2019 2:28 PM CDT documented as of this encounter Last Filed Vital Signs Vital Sign Reading Time Taken Comments Blood Pressure 118/72 04/05/2015 3:58 PM AIRWORTHINESS SAFETY INSPECTOR Pulse 100 04/05/2015 3:58 PM AIRWORTHINESS SAFETY INSPECTOR Temperature - - Respiratory Rate - - Oxygen Saturation - - Inhaled Oxygen Concentration - - Weight 71 kg (156 lb 8.4 oz) 04/05/2015 3:58 PM AIRWORTHINESS SAFETY INSPECTOR Height 173 cm (5' 8.11) 04/05/2015 3:58 PM AIRWORTHINESS SAFETY INSPECTOR Body Mass Index 23.72 04/05/2015 3:58 PM AIRWORTHINESS SAFETY INSPECTOR documented in this encounter Progress Notes Frankie Sood M.D. - 04/05/2015 3:50 PM CST [id number] Chandrika was here yesterday. CHIEF COMPLAINT/REASON FOR [...] to look at options here in the [facility] or in the [facility] or at [facility] to get that done with a priority. Frankie Sood M.D./colin Electronically Signed By: FRANKIE SOOD MD On: 04/08/2015 04:41 PM Source: [facility] MHSDOLBEYNONRADSYS Document Id: [id number] ORTHINESS SAFETY INSPECTOR documented in this encounter Nursing Notes Shahida Arreola L.PJoshuaN. - 04/05/2015 4:37 PM CST ultrasound Patient sheduled for RUQU at [facility] 04/07/15 at 1:30pm Electronically Signed By: SHAHIDA ARREOLA LPN On: 04/05/2015 04:39 PM Source: [facility] POWERCHART Document Id: [id number] ORTHINESS SAFETY INSPECTOR documented in this encounter Miscellaneous Notes Miscellaneous - Frankie Sood M.D. - 04/08/2015 4:44 PM CST Results Notification From: FRANKIE SOOD MD To: STEPHANI Sood Nurse; Sent: 04/08/2015 16:44:47 AIRWORTHINESS SAFETY INSPECTOR ! Show up: 04/08/2015 16:44:47 AIRWORTHINESS SAFETY INSPECTOR Subject: Results Notification Actions: Notify patient of [...] Direct <0.20 mg/dL ( - <=0.30) Source: [facility] POWERCHART Document Id: [id number] Electronically signed by Conversion, [facility] Former Machine Operator [id number] at 09/29/2016 5:20 PM CDT Miscellaneous - Flores Muñiz M.D. - 04/06/2015 3:17 PM CST Test result from 04/05/2015 & RUQ ultrasound 04/06/2015 Document Contains Addenda Addendum by EDITH HAGAN LPN on 06 April 2015 15:33:28 AIRWORTHINESS SAFETY INSPECTOR Patient notified. From: FLORES MUÑIZ MD To: STEPHANI Muñiz Nurse; Cc: FRANKIE SOOD MD; Sent: 04/06/2015 15:17:12 AIRWORTHINESS SAFETY INSPECTOR Subject: Test result from 04/05/2015 & RUQ [...] and aorta. Impression: Unremarkable RUQ ultrasound. Source: [facility] POWERCHART Document Id: [id number] Electronically signed by Taryn, [facility] Former Machine Operator [id number] at 09/29/2016 5:20 PM CDT Miscellaneous - Frankie Sood M.D. 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 [id number], [place] [address]. All rights reserved. This information is not [...] you dont have one. Go to [email or web address] and click on Create Your Account. Then, follow the directions to complete the online form. Youll be asked for your [facility] number which you can find at the top of this document. Your Goals/Additional instructions: Source: [facility] POWERCHART Document Id: [id number] ORTHINESS SAFETY INSPECTOR Miscellaneous - Frankie Sood M.D. - 04/05/2015 4:14 PM CST Ambulatory Discharge Medication List [address] [id number] Visit Information Name: CHANDRIKA ESQUEDA [facility] Number: [id number] Visit Date: 04/05/2015 16:14:20 Attending [...] MD Signed On:05-APR-2015 16:13:42 Additional Information: Source: [facility] POWERCHART Document Id: [id number] ORTHINESS SAFETY INSPECTOR Miscellaneous - Shahida Arreola LJoshuaPJoshuaN. 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 : No JOSESITO SHAHIDA OLIVIA GEOSPATIAL EXTRACTOR ANALYSIS - 04/05/2015 15:58 AIRWORTHINESS SAFETY INSPECTOR Subjective Pain Symptoms : No JOSESITO SHAHIDAMALLORY BAKER GEOSPATIAL EXTRACTOR ANALYSIS - 04/05/2015 15:58 AIRWORTHINESS SAFETY INSPECTOR Dependent Habits Exposure to Tobacco Smoke : Other: Never Smoking Status : Never smoker Tobacco 2A : No JOSESITO SHAHIDAMALLORY BAKER GEOSPATIAL EXTRACTOR ANALYSIS - 04/05/2015 15:58 AIRWORTHINESS SAFETY INSPECTOR Caffeine Use Grid Caffeine Use : Current Type : Chocolate, Soft drinks Frequency : Occasionally SHAHIDA ARREOLA GEOSPATIAL EXTRACTOR ANALYSIS - 04/05/2015 15:58 AIRWORTHINESS SAFETY INSPECTOR Recreational Drug Use Grid Drug Use : None JOSESITO SHAHIDAMALLORY BAKER [facility] 04/05/2015 15:58 AIRWORTHINESS SAFETY INSPECTOR Source: [facility] DKT TechnologyCHART Document Id: [id number] AIRWORTHINESS SAFETY INSPECTOR!36 ORTHINESS SAFETY INSPECTOR documented in this encounter Plan of Treatment Not on filedocumented as of this encounter Procedures Procedure Name Priority Date/Time Associated Diagnosis Comme nts HEPATIC FUNCTION Routine 04/05/2015 4:32 PM Resul ts for this PANEL, S AIRWORTHINESS SAFETY INSPECTOR procedure are i n the results section. BASIC METABOLIC Routine 04/05/2015 4:32 PM Result s for this PANEL, S/P AIRWORTHINESS SAFETY INSPECTOR procedure are i n the results section. documented in this encounter Results (ABNORMAL) Hepatic Function Panel (04/05/2015 4:32 PM AIRWORTHINESS SAFETY INSPECTOR) [facility] Method Time Signature Alkaline 47 (L) [...] / Volume Laterality Blood 04/05/2015 4:32 PM AIRWORTHINESS SAFETY INSPECTOR Frankie Sood M.D. LAB BLOOD ADD-ON Performing Organization Address City/State/ZIP Code Phon e Number POWERCHART BMP (Basic Metabolic Panel) (04/05/2015 4:32 PM AIRWORTHINESS SAFETY INSPECTOR) P athologist Signature BUN (Blood Urea 10 [...] POWERCHART MMOLL HXeGFR (MDRD) >60 >=60 POWERCHART [id number] eGFR >60 >=60 POWERCHART Black/ [id number] [place]ican Specimen (Source) Anatomical Collection Method Collection Time Re ceived Time Location / / Volume Laterality Blood 04/05/2015 4:32 PM AIRWORTHINESS SAFETY INSPECTOR Frankie Sood M.D. LAB BLOOD ADD-ON Performing Organization Address City/State/ZIP Code Phon e Number POWERCHART documented in this encounter Visit Diagnoses Not on filedocumented in this encounter
--- OUTSIDE RECORDS SUMMARY | 2022-03-07 20:14 | XMS_ITS | Encounter Summary ---
:1995 Author Organization [facility] Address [address] [place] [address] Care Team Providers Name Role Phone Margarita Roberts M.D. Primary Care Provider [phone] Encounter Details Date Type Department Care Team Description 11/11/2016 Hospital Encounter HX [facility] FAMILYPRA Margarita Eli M.D. [address] [place], [place] [phone] (Wo rk) Social History [...] Ordered: OV Est Pt Level 3 - 30893 - 15 min Orders: neomycin/polymyxin B/hydrocortisone otic, 2 drop(s), Ear(Right), 4xDay, x 10 day(s), # 10 mL, 0 Refill(s), Acute, Pharmacy: [facility], [place], [place] Electronically Signed By: MARGARITA SKELTON MD On: 11/12/2016 08:15 AM Source: [facility] POWERCHART Document Id: [id number] documented in this encounter Miscellaneous Notes Miscellaneous - Haris Neumann, L.P.N. 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 : No HARIS NEUMANN LPN - 11/11/2016 16:58 CDT Subjective Pain Symptoms : Yes HARIS NEUMANN LPN - 11/11/2016 16:58 CDT Pain Scale Pain Scale Verbal 0-10 : Open HARIS NEUMANN [facility] - 11/11/2016 16:58 CDT Pain Pain Assessment Grid Pain 1 Location : Ear Laterality : Right Intensity : 6 HARIS NEUMANN [facility] - 11/11/2016 16:58 CDT Dependent Habits Exposure to Tobacco Smoke : Other: Never Smoking Status : Never smoker Tobacco 2A : No Tobacco Use/Currently Using : No Tobacco Use/Last 30 Days : No Tobacco Use/Last 12 months : No HARIS NEUMANN [facility] - 11/11/2016 16:58 CDT Caffeine Use Grid Caffeine Use : Current Type : Chocolate, Soft drinks Frequency : Occasionally HARIS NEUMANN [facility] - 11/11/2016 16:58 CDT Recreational Drug Use Grid Drug Use : None HARIS NEUMANN [facility] - 11/11/2016 16:58 CDT Source: [employer] Document Id: [id number] CDT!51 documented in this encounter Plan of Treatment Not on filedocumented as of this encounter Visit Diagnoses Not on filedocumented in this encounter Care Teams Optometric Technologist Relationship Specialty Start Date End Date Margarita Roberts M.D. PCP - General 10/16/16 06/13/[address] [address] documented as of this encounter
--- OUTSIDE RECORDS SUMMARY | 2022-03-07 20:14 | XMS_ITS | Encounter Summary ---
:1995 Author Organization [facility] [place] [address] Care Team Providers Name Role Phone Unavailable Primary Care Provider Unavailable Encounter Details Date Type Department Care Team Description 08/04/2016 Hospital Encounter HX [facility] FBCV INTERNMED Flores Muñiz M.D. [address] [facility] [address] [phone] Social History Tobacco Use Types Packs/Day [...] Muñiz M.D. - 08/04/2016 4:31 PM CDT [id number] CHIEF COMPLAINT/REASON FOR VISIT Sinus infection. HISTORY [...] their behalf by Silviano Laguerre, a trained associate medical director. The creation of this record is based on the scribe's personal observations and the provider's statements to them. This document has been checked and approved by the attending provider. Flores Muñiz M.D./mariela Electronically Signed By: FLORES MUÑIZ MD On: 08/07/2016 12:42 PM Modified by and Electronically Signed by: FLORES MUÑIZ MD On: 08/07/2016 12:42 PM Source: [facility] MHSDOLBEYNONRADSYS Document Id: [id number] documented in this encounter Miscellaneous Notes Miscellaneous - Flores Muñiz M.D. - 08/04/2016 4:56 PM CDT Ambulatory Patient Summary [address] [id number] Visit Information Name: LILLYRITESHISABEL PACHECO [facility] Number: [id number] Current Date: 08/04/2016 [...] day x 10 day(s) New Routed to [address] [address] desogestrel-ethinyl estradiol (Desogen 0.15 mg-0.03 mg oral [...] if you dont have one. Go to [email or web address] and click on Create Your Account. Then, follow the directions to complete the online form. Youll be asked for your [facility] number which you can find at the top of this document. Your Goals/Additional instructions: Source: [facility] POWERCHART Document Id: [id number] Miscellaneous - Flores Muñiz M.D. - 08/04/2016 4:56 PM CDT Ambulatory Discharge Medication List [address] [id number] Visit Information Name: CHANDRIKA ESQUEDA [facility] Number: [id number] Current Date: 08/04/2016 [...] day x 10 day(s) New Routed to [address] [id number] desogestrel-ethinyl estradiol (Desogen 0.15 mg-0.03 mg oral [...] MD Signed On:04-AUG-2016 16:56:44 Additional Information: Source: [facility] POWERCHART Document Id: [id number] Miscellaneous - Shraddha Machado C.M.A. 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 Entered On: 08/04/2016 16:42 CDT Performed On: 08/04/2016 16:41 CDT by SHRADDHA MACHADO [facility] Intake Chief Complaint : 1: [...] Information Given By : Patient Languages : Estonian Is Patient Female and 13-50 no hysterectomy [...] Grid Drug Use : None SHRADDHA MACHADO [facility] - 08/04/2016 16:41 CDT Source: [facility] [employer]Oz Document Id: [id number] CDT!44 Miscellaneous - Shraddha Machado C.M.AJoshua - 08/04/2016 4:40 PM CDT Health Assessment Health Assessment Entered On: 08/04/2016 16:40 CDT Performed On: 08/04/2016 16:40 CDT by SHRADDHA MACHADO [facility] Health Assessment Complete Health Assessment Complete or Modified : Annual Health Assessment Annual Health Assessment Completed : Yes SHRADDHA MACHADO [facility] - 08/04/2016 16:40 CDT Nutrition Nutrition Risk Factors by History Adult : None SHRADDHA MACHADO [facility] - 08/04/2016 16:40 CDT Functional Current Daily Living Assistance : None SHRADDHA MACHADO [facility] - 08/04/2016 16:40 CDT Dependent Habits Exposure to Tobacco Smoke : Other: Never Smoking Status : Never smoker Tobacco 2A : No Tobacco Use/Currently Using : No Tobacco Use/Last 30 Days : No Tobacco Use/Last 12 months : No Alcohol Use : No SHRADDHA MACHADO [facility] 08/04/2016 16:40 CDT Caffeine Use Grid Caffeine Use : Current Type : Chocolate, Soft drinks Frequency : Occasionally SHRADDHA MACHADO [facility] - 08/04/2016 16:40 CDT Recreational Drug Use Grid Drug Use : None SHRADDHA MACHADO [facility] 08/04/2016 16:40 CDT Psychosocial Domestic Abuse Concerns : None Behavioral Health Screen/Safety Assmt : Unable to obtain Roman Catholic Preference : Unknown SHRADDHA MACHADO [facility] 08/04/2016 16:40 CDT Advance Directive Advanced Directives : No Advance Directive Additional Information : No SHRADDHA MACHADO [facility] 08/04/2016 16:40 CDT Educ Needs Learning Style Preference Adult Grid Patient : None, Demonstration, Printed materials, Verbal explanation Family : None, Demonstration, Printed materials, Verbal explanation SHRADDHA MACHADO [facility] - 08/04/2016 16:40 CDT Source: [facility] [employer] Document Id: [id number] CDT!35 documented in this encounter Plan of Treatment Not on filedocumented as of this encounter Visit Diagnoses Not on filedocumented in this encounter
--- OUTSIDE RECORDS SUMMARY | 2022-03-07 20:14 | XMS_ITS | Encounter Summary ---
:1995 Author Organization [facility] [place] [address] Care Team Providers Name Role Phone Unavailable Primary Care Provider Unavailable Encounter Details Date Type Department Care Team Description 04/04/2016 Hospital Encounter HX NO MAPPING Zaynab Roberts M.D. [address] [place], [place] [phone] (Wo rk) Social History Tobacco Use Types Packs/Day Years Used Date Smoking Tobacco: Never Assessed Sex Assigned at Date Recorded Female 07/27/2019 2:28 PM CDT documented as of this encounter Plan of Treatment Not on filedocumented as of this encounter Visit Diagnoses Not on filedocumented in this encounter
--- OUTSIDE RECORDS SUMMARY | 2022-03-07 20:14 | XMS_ITS | Encounter Summary ---
:1995 Author Organization [facility] [place] [address] Care Team Providers Name Role Phone Zaynab Roberts M.D. Primary Care Provider Reason for Visit Reason Comments Med Refill Encounter Details Date Type Department Care Team Description 06/03/2017 Refill Department of Family Medicine, Kike Villafana Refmario [facility], in Zaynab Madrigal M.D. [place] [address] [address] [facility] [place] [address] [phone] Social History Tobacco Use Types Packs/Day Years Used Date Smoking Tobacco: Never Sex Assigned at Date Recorded Female 07/27/2019 2:28 PM CDT documented as of this encounter Plan of Treatment Not on filedocumented as of this encounter Visit Diagnoses Not on filedocumented in this encounter Care Teams Twister Frame Tender Relationship Specialty Start Date End Date Zaynab Roberts M.D. PCP - General 10/16/16 06/13/[address], [place] [phone] documented as of this encounter
--- OUTSIDE RECORDS SUMMARY | 2022-03-07 20:14 | XMS_ITS | Encounter Summary ---
:1995 Author Organization [facility] [place] [address] Care Team Providers Name Role Phone Unavailable Primary Care Provider Unavailable Encounter Details Date Type Department Care Team Description 11/10/2014 Hospital Encounter HX [facility] FBHB FAMILYPRA Zaynab Barr i, M.D. [address] [place] [phone] (Wo rk) Social History Tobacco Use Types [...] Skelton M.D. - 11/10/2014 9:41 AM CDT [id number] CHIEF COMPLAINT/ REASON FOR VISIT Cold symptoms. [...] by Frida Espinosa, a trained medical case worker. The creation of this record is based on the scribe's personal observations and the provider's statements to them. This document has been chalo cked and approved by the attending provider. Zaynab Goodwin M.D./devon Electronically Signed By: ZAYNAB SKELTON MD On: 01/22/2015 10:12 AM Source: [facility] MHSDOLNAI Document Id: [id number] documented in this encounter Miscellaneous Notes Miscellaneous - Zaynab Skelton M.D. - 11/10/2014 12:55 PM CDT Ambulatory Patient Summary [address] [place], [place] [id number] Visit Information Name: CHANDRIKA ESQUEDA [facility] Number: [id number] Current Date: 11/10/2014 12:55:31 [...] day x 10 day(s) New Routed to 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 Go to [email or web address] and click on Create Your Account. Then, follow the directions to complete the online form. Youll be asked for your [facility] number which you can find at the top of this document. Your Goals/Additional instructions: Source: [facility] POWERCHART Document Id: [id number] Miscellaneous - Zaynab Skelton M.D. - 11/10/2014 12:55 PM CDT Ambulatory Discharge Medication List [address] [id number] Visit Information Name: LILLYCHANDRIKA Nevarez JUNIOR [facility] Number: [id number] Visit Date: 11/10/2014 12:55:30 [...] day x 10 day(s) New Routed to [address] [address] Stop Taking the Following Medications: [...] MD Signed On:10-NOV-2014 12:55:24 Additional Information: Source: [facility] POWERCHART Document Id: [id number] Miscellaneous - Hollie Álvarez, L.P.N. 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 HXFinal Negative for POWERCHART Group A Strep by culture. Specimen Anatomical Collection Method Collection Time Receive d Time (Source) Location / / Volume Laterality Throat 11/10/2014 10:20 11/10/2014 AM CDT 10:20 AM CDT Zaynab Roberts M.D. LAB MICROBIOLOGY - GEN ERAL ORDERABLES Performing Organization Address City/[facility] [address]/[facility] Phon e Number POWERCHART Rapid Strep A Screen (11/10/2014 10:20 AM CDT) [facility] Method Time Signature HXStrep A POWERCHART Screen Rapid HXFinal Negative for POWERCHART Strep Group A by rapid screen. HXFinal Culture POWERCHART confirmation to follow. Specimen (Source) Anatomical Collection Method Collection Time Re ceived Time Location / / Volume Laterality Throat 11/10/2014 10:20 AM CDT Zaynab Roberts M.D. LAB MICROBIOLOGY - GEN ERAL ORDERABLES Performing Organization Address City/State/[facility] Code Phon e Number POWERCHART documented in this encounter Visit Diagnoses Not on filedocumented in this encounter
--- OUTSIDE RECORDS SUMMARY | 2022-03-07 20:14 | XMS_ITS | Encounter Summary ---
:1995 Author Organization [facility] [place] [address] Care Team Providers Name Role Phone Unavailable Primary Care Provider Unavailable Encounter Details Date Type Department Care Team Description 11/01/2015 Hospital Encounter HX [facility] Natalie Bedolla APRN, C.N.P. [address] [place] [phone] (Wo rk) Social History Tobacco Use Types [...] CHIEF COMPLAINT/REASON FOR VISIT [place] on [place] Lots of mosiquto bites. Became very swollen [...] Bismol as needed for nausea and diarrhea. Hopkins diet as tolerated, continue adequate fluid intake. Recheck if symptoms do not improve. Ordered: OV Est Pt Level 3 - 27155 - 15 min Electronically Signed By: PRICILA BEDOLLA APRN, CNP On: 11/01/2015 10:04 AM Source: [facility] POWERCHART Document Id: [id number] documented in this encounter Nursing Notes Pricila [...] with fever medication ?? New rash ?? [phone] Issa Nixon, [address] [place] [address], [place] [address]. All rights reserved. This information is not intended as a substitute for professional medical care. Always follow your healthcare professional's instructions. This document has images extracted. Please consider using [employer] for all your patient education needs. Source: [facility] POWERCHART Document Id: [id number] documented in this encounter Miscellaneous Notes Miscellaneous - rPicila Bedolla APRN, C.N.P. - 11/01/2015 9:57 AM CDT Ambulatory Patient Summary [address] [id number] Visit Information Name: CHANDRIKA ESQUEDA [facility] Number: [id number] Current Date: 11/01/2015 09:57:52 Physicians [...] with fever medication ?? New rash ?? [phone] Issa Nixon, [address] [place] [address], [place] [address]. All rights reserved. This information is not [...] if you dont have one. Go to [email or web address] and click on Create Your Account. Then, follow the directions to complete the online form. Youll be asked for your [facility] number which you can find at the top of this document. Your Goals/Additional instructions: This document has images extracted. Please consider using [employer] for all your patient education needs. Source: [facility] POWERCHART Document Id: [id number] Miscellaneous - Pricila Bedolla APRN, C.N.P. - 11/01/2015 9:57 AM CDT Ambulatory Discharge Medication List [address] [id number] Visit Information Name: CHANDRIKA ESQUEDAS [facility] Number: [id number] Visit Date: 11/01/2015 09:57:52 Attending Provider: PRICILA BEDOLLA APRN [facility] Primary Care Provider: MARGARITA PALAFOX MD LILLYCHANDRIKA [...] emergency. Electronically Signed By: PRICILA BEDOLLA APRN ASSISTANT COACH Signed On:01-NOV-2015 09:57:35 Additional Information: Source: [facility] POWERCHART Document Id: [id number] Miscellaneous - Shalom Kamara L.P.N. - 11/01/2015 9:36 AM CDT [facility] Intake/History [facility] Consultant Intake/History Entered On: 11/01/2015 9:41 CDT Performed On: 11/01/2015 9:36 CDT by SHALOM KAMARA LPN Intake Chief Complaint : Came home from [place] on Thursday from [facility]. Lots of mosiquto bites. Became very [...] Preferred Communication Mode : Verbal Languages : [place] Is Patient Female and 13-50 no hysterectomy : Yes Status : Patient denies Are you ? : No SHALOM KAMARA LPN - 11/01/2015 9:36 CDT Subjective Pain Symptoms : Yes SHALOM KAMARA [facility] - 11/01/2015 9:36 CDT Pain Scale Pain Scale Verbal 0-10 : Open SHALOM KAMARA [facility] - 11/01/2015 9:36 CDT Pain Pain Assessment Grid Pain 1 Pain 2 Location : Abdomen Head Intensity : 3 5 Time Pattern : Intermittent Constant SHALOM KAMARA [facility] - 11/01/2015 9:[address] [facility] - 11/01/2015 9:36 CDT Dependent Habits Exposure to Tobacco Smoke : Other: Never Smoking Status : Never smoker Tobacco 2A : No Tobacco Use/Currently Using : No Tobacco Use/Last 30 Days : No Tobacco Use/Last 12 months : No SHALOM KAMARA [facility] - 11/01/2015 9:36 CDT Caffeine Use Grid Caffeine Use : Current Type : Chocolate, Soft drinks Frequency : Occasionally SHALOM KAMARA [facility] - 11/01/2015 9:36 CDT Recreational Drug Use Grid Drug Use : None SHALOM KAMARA [facility] - 11/01/2015 9:36 CDT Source: [facility] Secure Document Id: [id number] CDT!56 documented in this encounter Plan of Treatment Not on filedocumented as of this encounter Visit Diagnoses Not on filedocumented in this encounter
--- OUTSIDE RECORDS SUMMARY | 2022-03-07 20:14 | XMS_ITS | Encounter Summary ---
:1995 Author Organization [facility] [place] [address] Care Team Providers Name Role Phone Unavailable Primary Care Provider Unavailable Encounter Details Date Type Department Care Team Description 03/27/2015 Hospital Encounter HX [facility] FB INTERNMED Jaycob Sood M.D. [address] [place] [address] [phone] (Wo rk) Social History Tobacco Use Types Packs/Day Years Used Date Smoking Tobacco: Never Assessed Sex Assigned at Date Recorded Female 07/27/2019 2:28 PM CDT documented as of this encounter Last Filed Vital Signs Vital Sign Reading Time Taken Comments Blood Pressure 128/75 03/27/2015 9:56 AM [employer] Pulse 72 03/27/2015 9:56 AM [employer] Temperature - - Respiratory Rate - - Oxygen Saturation - - Inhaled Oxygen Concentration - - Weight 71 kg (156 lb 8.4 oz) 03/27/2015 9:56 AM [employer] Height 173 cm (5' 8.11) 03/27/2015 9:56 AM [employer] Body Mass Index 23.72 03/27/2015 9:56 AM [employer] documented in this encounter Progress Notes Frankie Sood M.D. - 03/27/2015 9:49 AM CST [id number] CHIEF COMPLAINT/REASON FOR VISIT Vomiting, diarrhea. HISTORY OF PRESENT ILLNESS This is a new patient to my practice. She has seen other providers at the clinic before. She is 20 years of age. 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 - 04/02/2015 8:01 AM CST Results Notification Document Contains Addenda Addendum by SHAHIDA BELLAMY LPN on 02 April 2015 13:23:29 [employer] called with results From: FRANKIE SOOD MD To: STEPHANI Sood Nurse; Sent: 04/02/2015 08:01:03 [employer] ! Show up: 04/02/2015 08:01:03 [employer] Subject: Results Notification Actions: Notify patient of results Reminder Comments: OK and specifically celiac serologies are negative Results: Date Result Name Value Ref Range 03/27/2015 10:38 TSH, Sensitive-Higgins 2.8 mIU/L (0.3-4.2 - ) 03/27/2015 10:38 IgA-Higgins 161 mg/dL (61 - 356 - ) 03/27/2015 10:38 Celiac Dis Interp-[place]eton See Comment Source: [facility] POWERCHART Document Id: [id number] Miscellaneous - Frankie Sood M.D. - 03/27/2015 2:42 PM CST Results Notification Document Contains Addenda Addendum by SHAHIDA BELLAMY LPN on 28 March 2015 14:16:52 [employer] called with results From: FRANKIE SOOD MD To: STEPHANI Sood Nurse; Sent: 03/27/2015 14:42:34 [employer] ! Show up: 03/27/2015 14:42:34 [employer] Subject: Results Notification Actions: Notify patient of [...] - <=0.30) Source: [facility] POWERCHART Document Id: [id number] Electronically signed by Conversion, [facility] Writer Producer [id number] at 09/29/2016 6:10 AM CDT Miscellaneous - Frankie Sood M.D. - 03/27/2015 1:43 PM CST Results Notification Document Contains Addenda Addendum by SHAHIDA BELLAMY LPN on 28 March 2015 14:16:25 [employer] called with results From: FRANKIE SOOD MD To: STEPHANI Sood Nurse; Sent: 03/27/2015 13:43:39 [employer] ! Show up: 03/27/2015 13:43:39 [employer] Subject: Results Notification Actions: Notify patient of [...] 1.59 x10(9)/L (0.90 - 2.90) 03/27/2015 10:38 Cooper Absolute 0.31 x10(9)/L (0.30 - 0.90) 03/27/2015 10:38 Eos Absolute (L) 0.04 x10(9)/L (0.05 - 0.50) 03/27/2015 10:38 Baso Absolute 0.01 x10(9)/L (0.00 - 0.30) [facility] Document Id: [id number] Frankie Pichardo M.D. - 03/27/2015 12:37 PM CST Results Notification Document Contains Addenda Addendum by SHAHIDA BELLAMY LPN on 28 March 2015 14:16:34 [employer] called with results From: FRANKIE SOOD MD To: STEPHANI Sood Nurse; Sent: 03/27/2015 12:37:05 [employer] ! Show up: 03/27/2015 12:37:05 [employer] Subject: Results Notification Actions: Notify patient of results Reminder Comments: ok Results: Date Result Name Value Ref Range 03/27/2015 10:38 Sed Rate 12 mm/hr (0 - 29) Source[facility] Document Id: [id number] Electronically signed by Conversion, [facility] Writer Producer [id number] at 09/29/2016 6:10 AM CDT Frankie Pichardo M.D. - 03/27/2015 10:19 AM CST Ambulatory Patient Summary [address] [id number] Visit Information Name: CHANDRIKA ESQUEDA [facility] Number: [id number] Current Date: 03/27/2015 10:19:15 [...] before meals and atbedtime New Routed to [address] [address] Stop Taking the Following Medications: [...] 02/15/2011 06/02/11 fructose / per [facility] Allergic reaction to drug, not elsewhere classified Active 06/03/2011 06/03/11 amoxicillin Your Upcoming Appointments Date Time Location Provider 04/04/2015 09:15 [facility] Frankie Sood MD Attention: Contact your [...] no interest in eating or drinking ?? [phone] Issa [facility], [address] [place] [address], [place] [address]. All rights reserved. This information is not [...] if you dont have one. Go to [email or web address] and click on Create Your Account. Then, follow the directions to complete the online form. Youll be asked for your [facility] number which you can find at the top of this document. Your Goals/Additional instructions: Source: [facility] POWERCHART Document Id: [id number] [employer] Miscellaneous - Frankie Sood M.D. 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 : No EMELINA ALEMAN [facility] - 03/27/2015 9:56 [employer] Subjective Pain Symptoms : Yes EMELINA ALEMAN CMA - 03/27/2015 9:56 [employer] Pain Scale Pain Scale Verbal 0-10 : Open EMELINA ALEMAN [facility] - 03/27/2015 9:56 [employer] Pain Pain Assessment Grid Pain 1 Location : Abdomen (Comment: Lower near waist line [EMELINA ALEMAN [facility] - 03/27/2015 9:56 [employer]] ) Laterality : Bilateral Intensity : 2 EMELINA ALEMAN [facility] - 03/27/2015 9:56 [employer] Dependent Habits Tobacco Use/Currently Using : No Exposure to Tobacco Smoke : Other: Never Smoking Status : Never smoker Alcohol Use : Yes EMELINA ALEMAN [facility] - 03/27/2015 9:56 [employer] Caffeine Use Grid Caffeine Use : Current Type : Chocolate, Soft drinks Frequency : Occasionally EMELINA ALEMAN [facility] - 03/27/2015 9:56 [employer] Recreational Drug Use Grid Drug Use : None EMELINA ALEMAN [facility] - 03/27/2015 9:56 [employer] Source: [employer] Document Id: [id number] [employer]!47 [employer] documented in this encounter Plan of Treatment Not on filedocumented as of this encounter Procedures Procedure Name Priority Date/Time Associated Comments Diagnosis HEPATIC FUNCTION PANEL, Routine 03/27/2015 10:38 Results for this S AM [employer] procedure are i n the results section. THYROID FUNCTION Routine 03/27/2015 10:38 Results for this CASCADE, S AM [employer] procedure are i n the results section. CELIAC DISEASE SEROLOGY Routine 03/27/2015 10:38 Results for this CASCADE, S AM [employer] procedure are i n the results section. AUTOMATED DIFFERENTIAL, Routine 03/27/2015 10:38 Results for this B AM [employer] procedure are i n the results section. TISSUE TRANSGLUTAMINASE Routine 03/27/2015 10:38 Results for this (TTG) AB, IGA, S AM [employer] procedure a re in the results section. SEDIMENTATION RATE, B Routine 03/27/2015 10:38 Re sults for this AM [employer] procedure are i n the results section. CBC WITH DIFFERENTIAL, B Routine 03/27/2015 10:38 Results for this AM [employer] procedure are i n the results section. BASIC METABOLIC PANEL, Routine 03/27/2015 10:38 R esults for this S/P AM [employer] procedure are i n the results section. documented in this encounter Results (ABNORMAL) Automated Differential (03/27/2015 10:38 AM [employer]) [facility] Method Time Signature Absolute 2.41 1.70 - POWERCHART Neutrophils 7.00 109L Lymphocytes 1.59 0.90 - POWERCHART 2.90 X109L Monocytes 0.31 0.30 - POWERCHART 0.90 X109L Eosinophils 0.04 (L) 0.05 - POWERCHART 0.50 X109L Absolute 0.01 0.00 - POWERCHART Basophil 0.30 X109L Specimen Anatomical Collection Method Collection Time Receive d Time (Source) Location / / Volume Laterality Blood 03/27/2015 10:38 03/27/2015 AM [employer] 10:38 AM [employer] Frankie Sood M.D. LAB BLOOD ADD-ON Performing Organization Address City/[facility] Code Phon e Number POWERCHART Sedimentation Rate (03/27/2015 10:38 AM [employer]) Analysis Performed At Patho logist Time Signature Sedimentation 12 0 - 29 POWERCHART Rate, B MMHR Specimen (Source) Anatomical Collection Method Collection Time Re ceived Time Location / / Volume Laterality Blood 03/27/2015 10:38 AM [employer] Frankie Sood M.D. LAB BLOOD ADD-ON Performing Organization Address City/[facility] Phon e Number POWERCHART CBC with Differential (03/27/2015 10:38 AM [employer]) P athologist Signature Leukocytes 4.4 3.4 - 10.5 POWERCHART X109L Erythrocytes 4.33 3.90 - 5.03 POWERCHART [id number] Hemoglobin 12.4 12.0 - 15.5 POWERCHART GDL Hematocrit 37.7 34.9 - 44.5 POWERCHART MCV 87.1 82.0 - 98.0 POWERCHART FL HX RDW 12.1 11.9 - 15.5 POWERCHART Platelet Count 183 150 - 450 POWERCHART X109L Specimen (Source) Anatomical Collection Method Collection Time Re ceived Time Location / / Volume Laterality Blood 03/27/2015 10:38 AM [employer] Frankie Sood M.D. LAB BLOOD ADD-ON Performing Organization Address City/[facility] Code Phon e Number POWERCHART tTG (Tissue Transglutaminase), Antibody, IgA (03/27/2015 10:38 AM [employer]) Patholo gist Method Time Signature Tissue <1.2 <4.0 POWERCHART Transglutaminase Ab, (Negative) IgA, S UNITML Comment: Test Performed by: [facility] [place] [address] Quality System Manager: Rishi Gauthier II, M.D., Ph.D. Specimen Anatomical Collection Method Collection Time Receive d Time (Source) Location / / Volume Laterality Blood 03/27/2015 10:38 03/28/2015 7:51 AM [employer] AM [employer] Historical Provider LAB BLOOD ADD-ON Performing Organization Address [facility] Phon e Number POWERCHART Celiac Disease Serology [place] (03/27/2015 10:38 AM [employer]) [facility] Method Time Signature HX IgA 161 61 - 356 POWERCHART MGDL Interpretation See Comment POWERCHART Comment: Negative serology. Celiac disease unlike ly. However, approximately 10% of patients with dmitriy c disease are seronegative. Also, patients who are alr kerry adhering to a gluten-free diet may be seronegative. If celiac disease is highly clinically suspected, consider HL A-DQ typing. Test Performed by: [facility] [place] [address] Quality System Manager: Rishi Gauthier II, M.D., Ph.D. Specimen (Source) Anatomical Collection Method Collection Time Re ceived Time Location / / Volume Laterality Blood 03/27/2015 10:38 AM [employer] Frankie Sood M.D. LAB BLOOD ADD-ON Performing Organization Address [facility] Phon e Number POWERCHART (ABNORMAL) Hepatic Function Panel (03/27/2015 10:38 AM [employer]) [facility] Method Time Signature Alkaline 45 (L) [...] / Volume Laterality Blood 03/27/2015 10:38 AM [employer] Frankie Sood M.D. LAB BLOOD ADD-ON Performing Organization Address City/State/ZIP Code Phon e Number POWERCHART BMP (Basic Metabolic Panel) (03/27/2015 10:38 AM [employer]) P athologist Signature BUN (Blood Urea 9 [...] POWERCHART MMOLL HXeGFR (MDRD) >60 >=60 POWERCHART [id number] eGFR >60 >=60 POWERCHART Black/ [id number] Citizen Of [place] Specimen (Source) Anatomical Collection Method Collection Time Re ceived Time Location / / Volume Laterality Blood 03/27/2015 10:38 AM [employer] Frankie Sood M.D. LAB BLOOD ADD-ON Performing Organization Address City/[facility]/ZIP Code Phon e Number POWERCHART Thyroid Function [place] (03/27/2015 10:38 AM [employer]) athologist Signature TSH, Sensitive 2.8 0.3 - 4.2 POWERCHART MIUL Comment: Test Performed by: [place] [address] Quality System Manager: Rishi Gauthier II, M.D., Ph.D. Specimen (Source) Anatomical Collection Method Collection Time Re ceived Time Location / / Volume Laterality Blood 03/27/2015 10:38 AM [employer] Frankie Sood M.D. LAB BLOOD ADD-ON Performing Organization Address City/State/ZIP Code Phon e Number POWERCHART documented in this encounter Visit Diagnoses Not on filedocumented in this encounter
--- OUTSIDE RECORDS SUMMARY | 2022-03-07 20:14 | XMS_ITS | Encounter Summary ---
:1995 Author Organization [facility] [place] [address] Care Team Providers Name Role Phone Unavailable Primary Care Provider Unavailable Encounter Details Date Type Department Care Team Description 05/31/2015 Hospital Encounter HX [facility] FAMILYPRA Zaynab Barr i, M.D. [address] [place] [phone] (Wo rk) Social History Tobacco Use Types Packs/Day Years Used Date Smoking Tobacco: Never Assessed Sex Assigned at Date Recorded Female 07/27/2019 2:28 PM CDT documented as of this encounter Last Filed Vital Signs Vital Sign Reading Time Taken Comments Blood Pressure 102/60 05/31/2015 10:10 AM STRUCTURAL ARCHITECT Pulse 84 05/31/2015 10:10 AM STRUCTURAL ARCHITECT Temperature - - Respiratory Rate 12 05/31/2015 10:10 AM STRUCTURAL ARCHITECT Oxygen Saturation - - Inhaled Oxygen Concentration - - Weight 70 kg (154 lb 5.2 oz) 05/31/2015 10:10 AM STRUCTURAL ARCHITECT Height 173 cm (5' 8.11) 05/31/2015 9:47 AM STRUCTURAL ARCHITECT Body Mass Index 23.39 05/31/2015 9:47 AM STRUCTURAL ARCHITECT documented in this encounter Progress Notes Zaynab Skelton M.D. - 05/31/2015 9:45 AM CST [id number] CHIEF COMPLAINT/ REASON FOR VISIT Cold symptoms. [...] behalf by Frida Espinosa, a trained medical officer. The creation of this record is based on the scribe's personal observations and the provider's statements to them. This document has been chalo cked and approved by the attending provider. Zaynab Goodwin M.D./devon Electronically Signed By: ZAYNAB SKELTON MD On: 06/02/2015 09:09 PM Source: [facility] CORINNESDOLJUMARADSYS Document Id: [id number] CTURAL ARCHITECT documented in this encounter Miscellaneous Notes Miscellaneous - Rabia Schaeffer L.P.N. - 05/31/2015 10:13 AM CST Health Assessment Health Assessment Entered On: 05/31/2015 10:14 STRUCTURAL ARCHITECT Performed On: 05/31/2015 10:13 STRUCTURAL ARCHITECT by RABIA SCHAEFFER LPN Health Assessment Complete Health Assessment Complete or Modified : Annual Health Assessment Annual Health Assessment Completed : Yes RABIA SCHAEFFER LPN - 05/31/2015 10:13 STRUCTURAL ARCHITECT Nutrition Nutrition Risk Factors by History Adult : None RABIA SCHAEFFER LPN - 05/31/2015 10:13 STRUCTURAL ARCHITECT Functional Current Daily Living Assistance : None RABIA SCHAEFFER LPN - 05/31/2015 10:13 STRUCTURAL ARCHITECT Dependent Habits Exposure to Tobacco Smoke : Other: Never Smoking Status : Never smoker Tobacco 2A : No Tobacco Use/Currently Using : No Tobacco Use/Last 30 Days : No Tobacco Use/Last 12 months : No RABIA SCHAEFFER LPN - 05/31/2015 10:13 STRUCTURAL ARCHITECT Caffeine Use Grid Caffeine Use : Current Type : Chocolate, Soft drinks Frequency : Occasionally RABIA SCHAEFFER LPN - 05/31/2015 10:13 STRUCTURAL ARCHITECT Alcohol Use : No RABIA SCHAEFFER LPN - 05/31/2015 10:13 STRUCTURAL ARCHITECT Recreational Drug Use Grid Drug Use : None RABIA SCHAEFFER LPN - 05/31/2015 10:13 STRUCTURAL ARCHITECT Psychosocial Domestic Abuse Concerns : None Behavioral Health Screen/Safety Assmt : No Sabianist Preference : Unknown RABIA SCHAEFFER LPN - 05/31/2015 10:13 STRUCTURAL ARCHITECT Advance Directive Advanced Directives : No Advance Directive Additional Information : No RABIA SCHAEFFER LPN - 05/31/2015 10:13 STRUCTURAL ARCHITECT Educ Needs Learning Style Preference Adult Grid Patient : Demonstration, Printed materials, Verbal explanation Family : Demonstration, Printed materials, Verbal explanation RABIA SCHAEFFER LPN - 05/31/2015 10:13 STRUCTURAL ARCHITECT Source: [facility] POWERCHART Document Id: [id number] STRUCTURAL ARCHITECT!35 CTURAL ARCHITECT Miscellaneous - Rabia Schaeffer L.P.N. 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 : No RABIA SCHAEFFER LPN - 05/31/2015 10:10 STRUCTURAL ARCHITECT Subjective Pain Symptoms : Yes RABIA SCHAEFFER LPN - 05/31/2015 10:10 STRUCTURAL ARCHITECT Pain Scale Pain Scale Verbal 0-10 : Open RABIA SCHAEFFER LPN - 05/31/2015 10:10 STRUCTURAL ARCHITECT Pain Pain Assessment Grid Pain 1 Location : Sinus RABIA SCHAEFFER LPN - 05/31/2015 10:10 STRUCTURAL ARCHITECT Dependent Habits Exposure to Tobacco Smoke : Other: Never Smoking Status : Never smoker Tobacco 2A : No Tobacco Use/Currently Using : No Tobacco Use/Last 30 Days : No Tobacco Use/Last 12 months : No RABIA SCHAEFFER LPN - 05/31/2015 10:10 STRUCTURAL ARCHITECT Caffeine Use Grid Caffeine Use : Current Type : Chocolate, Soft drinks Frequency : Occasionally RABIA SCHAEFFER LPN - 05/31/2015 10:10 STRUCTURAL ARCHITECT Recreational Drug Use Grid Drug Use : None RABIA SCHAEFFER LPN - 05/31/2015 10:10 STRUCTURAL ARCHITECT Source: [facility] POWERCHART Document Id: [id number] STRUCTURAL ARCHITECT!44 CTURAL ARCHITECT documented in this encounter Plan of Treatment Not on filedocumented as of this encounter Visit Diagnoses Not on filedocumented in this encounter
--- OUTSIDE RECORDS SUMMARY | 2022-03-07 20:14 | XMS_ITS | Encounter Summary ---
:1995 Author Organization [facility] [place] [address] Care Team Providers Name Role Phone Unavailable Primary Care Provider Unavailable Encounter Details Date Type Department Care Team Description 11/10/2014 Hospital Encounter HX NO MAPPING Zaynab Roberts M.D. [address] [place], [place] [phone] (Wo rk) Social History Tobacco Use Types Packs/Day Years Used Date Smoking Tobacco: Never Assessed Sex Assigned at Date Recorded Female 07/27/2019 2:28 PM CDT documented as of this encounter Miscellaneous Notes Miscellaneous - Conversion, Historical Provider Ser - 11/10/2014 11:59 PM CDT Coding Summary-Paper Based CODING DATE: 11/16/2014 FINAL [facility] STATUS: * Discharged to Home [...] FREDERICK Date Saved: 11/16/2014 06:40 pm [facility] [employer] Document Id: [id number] documented in this encounter Plan of Treatment Not on filedocumented as of this encounter Visit Diagnoses Not on filedocumented in this encounter
--- OUTSIDE RECORDS SUMMARY | 2022-03-07 20:14 | XMS_ITS | Encounter Summary ---
:1995 Author Organization [facility] [place] [address] Care Team Providers Name Role Phone Unavailable Primary Care Provider Unavailable Encounter Details Date Type Department Care Team Description 09/05/2016 Hospital Encounter HX [facility] Ishan Moore M.D. [address] [place], [place] [address] (Wo rk) Social History Tobacco Use Types [...] in 1 year Ordered: Dermatopathology Consult, Wet Tissue-[place] [id number] Electronically Signed By: JANE MOORE MD On: 09/05/2016 04:00 PM Source: [employer] Document Id: [id number] documented in this encounter Miscellaneous Notes Miscellaneous [...] return phone call and [facility] portal Addendum by HARIS GARZA LPN on September 15, 2016 08:14:44 CDT From: HARIS GARZA LPN (STEPHANI Sanchez Nurse) To: CHANDRIKA ESQUEDA Sent: 09/15/2016 08:14:44 CDT Subject: FW: From: MARGARITA SKELTON MD To: STEPHANI Sanchez Nurse; Sent: 09/14/2016 20:30:18 CDT Please inform Chandrika that the skin lesions were not worrisome. Source: [facility] POWERCHART Document Id: [id number] Miscellaneous - Jane Moore M.D. - 09/05/2016 4:00 PM CDT Ambulatory Patient Summary [facility] [address] [place] [id number] Visit Information Name: CHANDRIKA ESQUEDA [facility] Number: [id number] Current Date: 09/05/2016 16:00:33 Physicians [...] if you dont have one. Go to [email or web address] and click on Create Your Account. Then, follow the directions to complete the online form. Youll be asked for your [facility] number which you can find at the top of this document. Your Goals/Additional instructions: Source: [facility] POWERCHART Document Id: [id number] Miscellaneous - Jane Moore M.D. - 09/05/2016 4:00 PM CDT Ambulatory Discharge Medication List [address] [id number] Visit Information Name: CHANDRIKA ESQUEDA [facility] Number: [id number] Current Date: 09/05/2016 16:00:32 Attending [...] MD Signed On:05-SEP-2016 16:00:30 Additional Information: Source: [facility] ULTRA Testing Document Id: [id number] Miscellaneous - Hollie Álvarez L.P.N. 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/History Entered On: 09/05/2016 14:45 CDT Performed On: 09/05/2016 14:44 CDT by HOLLIE ÁLVAREZ LPN Intake Chief Complaint : check some moles on the scalp and some on the abdomen Height : 169 cm(Converted to: 5 ft 7 inch(es), 67 inch(es)) HOLLIE ÁLVAREZ LPN - 09/05/2016 14:44 CDT General Info Languages : Ukrainian Is Patient Female and 13-50 no hysterectomy [...] ÁLVAREZ LPN - 09/05/2016 14:44 CDT Source: [facility] ULTRA Testing Document Id: [id number] CDT!26 documented in this encounter Plan of [...] (09/05/2016 4:46 PM CDT) [facility] Signature H[facility] IV Surg Performed [facility] Comment: Test Performed by: [facility] [address] [place] [address] Specimen Anatomical Collection Method Collection Time Receive d Time (Source) Location / / Volume Laterality Tissue 09/05/2016 4:46 PM 7 1:33 CDT PM CDT Historical Provider [facility] LABORATORY Performing Organization Address City/State/ZIP Code Phon e Number POWERCHART PATHOLOGY DERMPATH CONSULT, WET TISSUE (09/05/2016 4:46 PM CDT) [facility] Method Time Signature HXDrm Exam [id number] POWERCHART [facility] HXDrm Exam See Comment POWERCHART [facility] Comment: RESULT: Jane Moore M.D. HXDrm Exam [facility] See Comment POWERCH ART Comment: [facility] [address] [place] [id number] HXDrm Exam [facility] See Comment POWERCH ART Comment: A. ??DermPath Consultation, Wet Tissue; right chest: B. ??DermPath Consultation, Wet Tissue; right thigh: HXDrm Exam [facility] See Comment POWERCH ART Comment: A. ??Received [...] submitted entirely in cassette B1. HXDrm Exam [facility] See Comment POWERCH ART Comment: A. ??DermPath Consultation, Wet Tissue; right chest: ??Lentiginous junctional nevus B. ??DermPath Consultation, Wet Tissue; right thigh: ??Lentiginous compound nevus HXDrm Exam [facility] See Comment POWERCH ART Comment: RESULT: 09/10/2016 14:24 ??Interpreted by : Veronica Rios M.D Report electronically signed by Veronica Rios M.D. Transcribed by: [email or web address] 09/10/2016 14:04:16 Test Performed by: [address] [address] Specimen (Source) Anatomical Collection Method Collection Time Re ceived Time Location / / Volume Laterality Tissue 09/05/2016 4:46 PM CDT Jane Moore M.D. LAB PATH DERM ORDERABLES Performing Organization Address City/State/[facility] Code Phon e Number POWERCHART documented in this encounter Visit Diagnoses Not on filedocumented in this encounter
--- OUTSIDE RECORDS SUMMARY | 2022-03-07 20:15 | XMS_ITS | Encounter Summary ---
:1995 Author Organization [facility] [place] [address] Care Team Providers Name Role Phone Unavailable Primary Care Provider Unavailable Encounter Details Date Type Department Care Team Description 12/23/2011 Hospital Encounter HX [facility] Zaynab Peterson M.D. [address] [place], [place] [phone] (Wo rk) Social History Tobacco Use Types Packs/Day Years Used Date Smoking Tobacco: Never Assessed Sex Assigned at Date Recorded Female 07/27/2019 2:28 PM CDT documented as of this encounter Plan of Treatment Not on filedocumented as of this encounter Visit Diagnoses Not on filedocumented in this encounter
--- OUTSIDE RECORDS SUMMARY | 2022-03-07 20:15 | XMS_ITS | Encounter Summary ---
:1995 Author Organization [facility] Address [address] [place] [address] Care Team Providers Name Role Phone Unavailable Primary Care Provider Unavailable Encounter Details Date Type Department Care Team Description 12/23/2012 Hospital Encounter HX [facility] FAMILYPRA Margarita Barr i, M.D. [address] [place] [phone] (Wo rk) Social History Tobacco Use Types [...] Skelton M.D. - 12/23/2012 11:00 AM CDT [id number] CHIEF COMPLAINT/ REASON FOR VISIT Ear pain, [...] behalf by Maria Luisa Rosales, a trained product manager medical device. The creation of this record is based on the scribe's personal observations and the provider's statements to them. This document has been chalo cked and approved by the attending provider. Margarita Morrow M.D./burt Electronically Signed By: MARGARITA MORROW MD On: 12/26/2012 09:04 PM Modified by and Electronically Signed by: MARGARITA MORROW MD On: 12/26/2012 09:04 PM Source: [facility] MHSDOLBEYNONRADSYS Document Id: [id number] documented in this encounter Miscellaneous Notes Telephone [...] up. Since she goes to school in [place], she is unable to come in for [...] refill A: R: Please call Oralia at [phone] Advice/Action: Source used: ( ) Verbalizes understanding [...] phone number ( ) Source: [facility] POWERCHART Document Id: [id number] Miscellaneous - Eloina Hyman, R.N. - 12/30/2012 [...] last the 6 weeks? Source: [facility] POWERCHART Document Id: [id number] Saskia - Margarita Skelton M.D. - 12/23/2012 5:40 PM CDT Ambulatory Patient Summary [address] [id number] Visit Information Name: CHANDRIKA ESQUEDA [facility] Number: [id number] Current Date: 12/23/2012 17:40:12 Physicians [...] found Your Goals/Additional instructions: Source: [facility] POWERCHART Document Id: [id number] Saskia - Margarita Skelton M.D. - 12/23/2012 5:40 PM CDT Ambulatory Depart Summary [phone] [place] [address] Visit Information Name: CHANDRIKA ESQUEDA [facility] Number: [id number] Visit Date: 12/23/2012 17:40:11 Attending [...] for clarification. 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 Intake/History Adult Roller Coaster Designer Intake/History Entered On: 12/23/2012 11:20 CDT Performed [...] Mass Index : 20.66 kg/m2 LOIS CASAS [facility] - 12/23/2012 11:16 CDT General Info Information Given By : Patient Languages : Panamanian LOIS CASAS [facility] - 12/23/2012 11:16 CDT Subjective Pain Symptoms : Yes LOIS CASAS [facility] - 12/23/2012 11:16 CDT Pain Pain Assessment Grid Pain 1 Location : Ear Laterality : Right LOIS CASAS [facility] - 12/23/2012 11:16 CDT Dependent Habits Tobacco Use/Currently Using : No Exposure to Tobacco Smoke : Other: Never Smoking Status : Never smoker LOIS CASAS [facility] - 12/23/2012 11:16 CDT Tobacco Use Grid Last Use : never LOIS CASAS [facility] - 12/23/2012 11:16 CDT Caffeine Use Grid Caffeine Use : Current Type : Chocolate, Soft drinks Frequency : Occasionally LOIS CASAS [facility] - 12/23/2012 11:16 CDT Source: [facility] [employer]CH[employer] Document Id: [id number] CDT!38 documented in this encounter Plan of Treatment Not on filedocumented as of this encounter Visit Diagnoses Not on filedocumented in this encounter
--- OUTSIDE RECORDS SUMMARY | 2022-03-07 20:15 | XMS_ITS | Encounter Summary ---
:1995 Author Organization [facility] Address [address] [place] [address] Care Team Providers Name Role Phone Unavailable Primary Care Provider Unavailable Encounter Details Date Type Department Care Team Description 05/11/2012 Hospital Encounter HX [facility] FBHB FAMILYPRA Margarita Barr i, M.D. [address] [place] [phone] (Wo rk) Social History Tobacco Use Types Packs/Day Years Used Date Smoking Tobacco: Never Assessed Sex Assigned at Date Recorded Female 07/27/2019 2:28 PM CDT documented as of this encounter Last Filed Vital Signs Vital Sign Reading Time Taken Comments Blood Pressure 100/60 05/11/2012 10:02 AM HOSPITAL CLINIC ASSISTANT Pulse 52 05/11/2012 10:02 AM HOSPITAL CLINIC ASSISTANT Temperature - - Respiratory Rate 16 05/11/2012 10:02 AM HOSPITAL CLINIC ASSISTANT Oxygen Saturation - - Inhaled Oxygen Concentration - - Weight 62 kg (136 lb 11 oz) 05/11/2012 10:02 AM HOSPITAL CLINIC ASSISTANT Height 173 cm (5' 8.11) 05/11/2012 10:02 AM HOSPITAL CLINIC ASSISTANT Body Mass Index 20.72 05/11/2012 10:02 AM HOSPITAL CLINIC ASSISTANT Body Mass Index Percentile 42.11 % 05/11/2012 10:[address] Growth Chart: CDC (Girls, 2-20 Years) documented in this encounter Progress Notes Margarita Skelton M.D. - 05/11/2012 9:56 AM CST [id number] CHIEF COMPLAINT/REASON FOR VISIT Rash HISTORY OF [...] continue to monitor Margarita Morrow M.D./mali DOCID: [id number] Electronically Signed By: MARGARITA MORROW MD On: 07/16/2012 06:24 PM [facility] Document Id: [id number] documented in this encounter Miscellaneous Notes Miscellaneous - Margarita Skelton M.D. - 05/11/2012 10:30 PM HOSPITAL CLINIC ASSISTANT Ambulatory Patient Summary [address] [address] Visit Information Name: CHANDRIKA ESQUEDA [facility] Number: [id number] Current Date: 05/11/2012 [...] Active 02/15/2011 06/02/11 fructose / per [facility] Allergic reaction to drug, not elsewhere classified Active 06/03/2011 06/03/11 amoxicillin Your Upcoming Appointments Date Time Location Reason Provider No Appointments found Your Goals/Additional instructions: Source: [facility] POWERCHART Document Id: [id number] ITAL CLINIC ASSISTANT Miscellaneous - Margarita Skelton M.D. - 05/11/2012 10:30 PM HOSPITAL CLINIC ASSISTANT Ambulatory Depart Summary [address] [address] Visit Information Name: CHANDRIKA ESQUEDA JUNIOR [facility] Number: [id number] Visit Date: 05/11/2012 [...] your provider for clarification. Additional Information: Source: [facility] POWERCHART Document Id: [id number] ITAL CLINIC ASSISTANT Miscellaneous - Conversion, Historical Provider Ser - 05/11/2012 10:02 AM HOSPITAL CLINIC ASSISTANT Adult Manager Strategic Alliances Intake/History Adult Manager Strategic Alliances Intake/History Entered On: 05/11/2012 10:04 HOSPITAL CLINIC ASSISTANT Performed On: 05/11/2012 10:02 HOSPITAL CLINIC ASSISTANT by LOIS CASAS LPN Intake Chief Complaint [...] 20.72kg/m2 LOIS CASAS LPN - 05/11/2012 10:02 HOSPITAL CLINIC ASSISTANT Subjective Pain Symptoms : No LOIS CASAS LPN - 05/11/2012 10:02 HOSPITAL CLINIC ASSISTANT Dependent Habits Tobacco Use/Currently Using : No Exposure to Tobacco Smoke : Other: Never Smoking Status : Never smoker LOIS CASAS LPN - 05/11/2012 10:02 HOSPITAL CLINIC ASSISTANT Tobacco Use Grid Last Use : never LOIS CASAS LPN - 05/11/2012 10:02 HOSPITAL CLINIC ASSISTANT Caffeine Use Grid Caffeine Use : Current Type : Chocolate, Soft drinks Frequency : Occasionally LOIS CASAS LPN - 05/11/2012 10:02 HOSPITAL CLINIC ASSISTANT Allergy Allergies (Active) amoxicillin Estimated Onset Date: <not entered> 06/03/2011 ; Reactions: rash ; Created By: PRICILA BEDOLLA CNP; Reaction Status: Active ; Category: Drug ; Substance: amoxicillin ; Type: Allergy ;Updated By: PRICILA BEDOLLA CNP; Reviewed Date: 05/11/2012 10:01 HOSPITAL CLINIC ASSISTANT Source: [facility] [employer] Document Id: [id number] documented in this encounter Plan of Treatment Not on filedocumented as of this encounter Visit Diagnoses Not on filedocumented in this encounter
--- OUTSIDE RECORDS SUMMARY | 2022-03-07 20:15 | XMS_ITS | Encounter Summary ---
:1995 Author Organization [facility] [place] [address] Care Team Providers Name Role Phone Unavailable Primary Care Provider Unavailable Encounter Details Date Type Department Care Team Description 08/10/2014 Hospital Encounter HX [facility] FB FAMILYPRA Margarita Barr i, M.D. [address] [place] [phone] (Wo rk) Social History Tobacco Use Types [...] Palafox M.D. - 08/10/2014 2:23 PM CDT [id number] CHIEF COMPLAINT/ REASON FOR VISIT Sinus infection. [...] their behalf by Hyacinth Grant, a trained clinical laboratory medical director. The creation of this record is based on the scribe's personal observations and the provider's statements to them. This document has been checked and approved by the attending provider. Margarita Grantnzinski, M.D./ Electronically Signed By: MARGARITA PALAFOX MD On: 08/29/2014 06:24 PM Source: [facility] MHSDOLBEYNONRADSYS Document Id: [id number] documented in this encounter Miscellaneous Notes Telephone Encounter - Haydee Philip - 10/25/2014 4:07 PM CDT *Phone Message Document Contains Addenda Addendum by MARGARITA PALAFOX MD on 26 October 2014 21:35:52 CDT From: MARGARITA PALAFOX MD To: STEPHANI Treutlen Medication Refill; Sent: 10/26/2014 21:35:52 CDT Subject: RE: *Phone Message done From: HAYDEE PHILIP LPN (FB Treutlen Medication Refill) To: MARGARITA PALAFOX MD; Sent: [...] mg tabs. Message: Is now going through [facility] and previous pharmacy sent over the Rx for the old one.Indicates has doses only until Thursday. Advice/Action: Please send to [id number] [phone] Source used: ( ) Verbalizes understanding of [...] back cell phone number ( ) Source: [facility] POWERCHART Document Id: [id number] Electronically signed by Conversion, [facility] Disintegrator Feeder [id number] at 09/28/2016 3:08 PM CDT Telephone Encounter - Conversion, Historical Provider Ser - 10/25/2014 12:28 PM CDT *Phone Message Document Contains Addenda Addendum by LOIS CASAS LPN on 25 October 2014 14:34:55 CDT From: LOIS CASAS LPN ([facility] Nurse) To: Rohan Medication Refill; Sent: 10/25/2014 14:34:55 CDT Subject: FW: *Phone Message From: INGE WOODY ([facility] Nurse) To: [facility] Nurse; Sent: 10/25/2014 12:28:24 CDT Subject: [...] have switched to [facility] in [place]: [phone] Advice/Action: Source used: ( ) Verbalizes understanding [...] back cell phone number ( ) Source: [facility] EmbueCHART Document Id: [id number] Miscellaneous - Margarita Palafox M.D. - 08/10/2014 5:40 PM CDT Ambulatory Patient Summary [address] [id number] Visit Information Name: CHANDRIKA ESQUEDA [facility] Number: [id number] Current Date: 08/10/2014 17:40:11 Physicians [...] directed x 5 day(s) New Routed to [facility] [address] [place] [address] desogestrel-ethinyl estradiol (Desogen 0.15 mg-0.03 mg oral [...] Active 02/15/2011 06/02/11 fructose / per [facility] Allergic reaction to drug, not elsewhere classified Active 06/03/2011 06/03/11 amoxicillin Your Upcoming Appointments Date Time Location Provider 08/24/2014 08:40 [facility] Marissa Jimenez MD, Stephen Chamberlain Attention: Contact your local Clinic if further appointment detail needed. Your Goals/Additional instructions: Source: [facility] POWERCHART Document Id: [id number] Miscellaneous - Margarita Palafox M.D. - 08/10/2014 5:40 PM CDT Ambulatory Discharge Medication List [address] [id number] Visit Information Name: CHANDRIKA ESQUEDA [facility] Number: [id number] Visit Date: 08/10/2014 17:40:10 Attending [...] directed x 5 day(s) New Routed to [facility] [address] [place] [address] desogestrel-ethinyl estradiol (Desogen 0.15 mg-0.03 mg oral [...] MD Signed On:10-AUG-2014 17:40:06 Additional Information: Source: [facility] POWERCHART Document Id: [id number] Miscellaneous - Irma Bhatt, L.P.N. - 08/10/2014 3:03 PM CDT Adult Sales Architect Intake/History Adult Sales Architect Intake/History Entered On: 08/10/2014 15:07 CDT Performed [...] 08/10/2014 15:03 CDT General Info Languages : Citizen Of [place] Is Patient Female and 13-50 no hysterectomy [...] Other: Never Smoking Status : Never smoker RIMA BHATT 08/10/2014 15:03 CDT Tobacco Use Grid [...] No IRMA BHATT 08/10/2014 15:03 CDT [facility] POWER[facility] Document Id: [id number] CDT!48 documented in this encounter Plan of Treatment Not on filedocumented as of this encounter Visit Diagnoses Not on filedocumented in this encounter
--- OUTSIDE RECORDS SUMMARY | 2022-03-07 20:15 | XMS_ITS | Encounter Summary ---
:1995 Author Organization [facility] Address [address] [place] [address] Care Team Providers Name Role Phone Unavailable Primary Care Provider Unavailable Encounter Details Date Type Department Care Team Description 12/23/2011 Hospital Encounter HX [facility] Zaynab Peterson M.D. [address] [place], [place] [phone] (Wo rk) Social History [...] 12/25/2011 8:49 PM CDT Test Performed by: [facility] [address] [place] [address] Advertising Layout Worker: Ayad sow III, M.D. Alicja Olivares M.D. LAB HISTORICAL ORDERS Performing Organization Address [facility] Phon e Number POWERCHART Parasitic Examination (12/24/2011 12:00 PM CDT) [facility] Method Time Signature Ova and See Comment POWERCHART Parasite, Microscopy, F Comment: SOURCE: STOOL PARASITIC EXAMINATION ?FINAL No parasites seen. Cryptosporidium, Cyclospora, and microsp oridia are not readily detected by this method. Test Performed by: [facility] [place] [address] Advertising Layout Worker: Ayad sow III, M.D. Specimen (Source) Anatomical Collection Method Collection Time Re ceived Time Location / / Volume Laterality Stool 12/24/2011 12:00 PM CDT Alicja Olivares M.D. LAB MICROBIOLOGY - GENERAL O RDERABLES Performing Organization Address [facility] Phon e Number POWERCHART Cryptosporidium Ag, F (12/24/2011 12:00 PM CDT) [facility] Method Time Signature Cryptosporidium Ag, Negative Negative POWERCHART F Comment: Test Performed by: [place] [address] Advertising Layout Worker: Ayad sow III, M.D. Specimen (Source) Anatomical Collection Method Collection Time Re ceived Time Location / / Volume Laterality Stool 12/24/2011 12:00 PM CDT Alicja Olivares M.D. LAB MICROBIOLOGY - GENERAL O RDERABLES Performing Organization Address [facility] Code Phon e Number POWERCHART documented in this encounter Visit Diagnoses Not on filedocumented in this encounter
--- OUTSIDE RECORDS SUMMARY | 2022-03-07 20:15 | XMS_ITS | Encounter Summary ---
:1995 Author Organization [facility] [place] [address] Care Team Providers Name Role Phone Unavailable Primary Care Provider Unavailable Encounter Details Date Type Department Care Team Description 12/01/2012 Hospital Encounter HX [facility] FAMILYPRA Zaynab Barr i, M.D. [address] [place] [phone] (Wo rk) Social History Tobacco Use Types [...] Skelton M.D. - 12/01/2012 1:05 PM CDT [id number] CHIEF COMPLAINT/ REASON FOR VISIT Review medications, review medical concerns, update preventive services. HISTORY OF PRESENT ILLNESS Chandrika is a healthy 17 year old female who presents to the clinic for an annual physical. She is going to college at [employer] in the fall. She has a history of vomiting and diarrhea and has followed up with [facility]. Chandrika is uncertain of a final diagnosis. [...] negative. SOCIAL HISTORY She will be attending [employer] in the fall. FAMILY HISTORY Sister is [...] by Maria Luisa Rosales, a trained medical center manager. The creation of this record is based on the scribe's personal observations and the provider's statements to them. This document has been chalo cked and approved by the attending provider. Zaynab Morrow M.D./burt Electronically Signed By: ZAYNAB MORROW MD On: 12/01/2012 09:47 PM Modified by and Electronically Signed by: ZAYNAB MORROW MD On: 12/01/2012 09:47 PM Source: [facility] MHSDOLBEYNONRADSYS Document Id: [id number] documented in this encounter Miscellaneous Notes Miscellaneous - Zaynab Skelton M.D. - 12/01/2012 1:48 PM CDT Ambulatory Patient Summary [address] [address] Visit Information Name: CHANDRIKA ESQUEDA [facility] Number: [id number] Current Date: 12/01/2012 13:48:40 Physicians [...] Appointments found Your Goals/Additional instructions: Source: [facility] POWERCHART Document Id: [id number] Miscellaneous - Zaynab Skelton M.D. - 12/01/2012 1:48 PM CDT Ambulatory Depart Summary [address] [address] Visit Information Name: CHANDRIKA ESQUEDA JUNIOR [facility] Number: [id number] Visit Date: 12/01/2012 13:48:39 Attending [...] provider for clarification. Additional Information: Source: [facility] CLIPPATECHART Document Id: [id number] Miscellaneous - Conversion, Historical Provider Ser - 12/01/2012 1:24 PM CDT Adult Information Systems Supervisor Intake/History Adult Information Systems Supervisor Intake/History Entered On: 12/01/2012 13:26 CDT Performed [...] Index : 21.03 kg/m2 LOIS CASAS [facility] - 12/01/2012 13:24 CDT General Info Information Given By : Patient Languages : Divehi LOIS CASAS [facility]ANE [facility] - 12/01/2012 13:24 CDT Subjective Pain Symptoms : No LOIS CASAS [facility] - 12/01/2012 13:24 CDT Dependent Habits Tobacco Use/Currently Using : No Exposure to Tobacco Smoke : Other: Never Smoking Status : Never smoker ANTONY ZEFERINO, LOIS CAROL [facility] - 12/01/2012 13:24 CDT Tobacco Use Grid Last Use : never ANTONY ZEFERINO, LOIS CAROL RESIDENT PHYSICIAN IN RADIOLOGY - 12/01/2012 13:24 CDT Caffeine Use Grid Caffeine Use : Current Type : Chocolate, Soft drinks Frequency : Occasionally ANTONY ZEFERINO, LOIS CAROL RESIDENT PHYSICIAN IN RADIOLOGY - 12/01/2012 13:24 CDT Source: [facility] CLIPPATECHART Document Id: [id number] CDT!32 documented in this encounter Plan of Treatment Not on filedocumented as of this encounter Visit Diagnoses Not on filedocumented in this encounter
--- OUTSIDE RECORDS SUMMARY | 2022-03-07 20:15 | XMS_ITS | Encounter Summary ---
:1995 Author Organization [facility] [place] [address] Care Team Providers Name Role Phone Unavailable Primary Care Provider Unavailable Encounter Details Date Type Department Care Team Description 09/19/2013 Hospital Encounter HX [facility] FB INTERNMED Jaycob Sood M.D. [address] [place] [phone] (Wo rk) Social History Tobacco [...] Sood M.D. 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 She has not had fever, chills or sweats. She does sound congested. She is worried about going to work tomorrow sick. MEDICATIONS Per [facility] EMR. ALLERGIES Per [facility] EMR. SYSTEMS REVIEW Review of systems in all areas except as mentioned above is negative. PREVENTIVE SERVICES: Per [facility] EMR. Handwashing done prior to patient contact. PAST MEDICAL/SURGICAL HISTORY Per [facility] EMR. VITAL SIGNS Per [facility] EMR. PHYSICAL EXAMINATION She has a little [...] SOOD MD On: 09/20/2013 08:05 AM Source: [facility] MHSDOLBEYNONRADSYS Document Id: [id number] documented in this encounter Miscellaneous Notes Miscellaneous - Frankie Sood M.D. - 09/20/2013 10:48 AM CDT Results Notification From: FRANKIE SOOD MD Sent: 09/20/2013 10:48:06 CDT ! Show up: 09/20/2013 10:48:06 CDT Subject: Results Notification Actions: Notify patient of results Reminder Comments: negative Results: Date Result Type Ind Result Name MBO Review Rapid Strep Confirmation Source: [facility] POWERCHART Document Id: [id number] Frankie Pichardo M.D. - 09/19/2013 3:51 PM [...] Name MBO Review Rapid Strep A Source: [facility] Relay Network Document Id: [id number] Electronically signed by Conversion, [facility] Snow Plow Operator [id number] at 09/29/2016 8:12 PM CDT Frankie Pichardo M.D. - 09/19/2013 3:35 PM CDT Ambulatory Patient Summary [address] [id number] Visit Information Name: CHANDRIKA ESQUEDA JUNIOR [facility] Number: [id number] Current Date: 09/19/2013 15:35:24 [...] day x 3 day(s) New Routed to [address] [place] [phone] norgestimate-ethinyl estradiol (Tri-Sprintec oral tablet) 1 Tablet(s), [...] Active 02/15/2011 06/02/11 fructose / per [facility] Allergic reaction to drug, not elsewhere classified Active 06/03/2011 06/03/11 amoxicillin Your Upcoming Appointments Date Time Location Reason Provider No Appointments found Attention: Contact your local Clinic if further appointment detail needed. Your Goals/Additional instructions: Source: [facility] POWERCHART Document Id: [id number] Miscellaneous - Frankie Sood M.D. - 09/19/2013 3:35 PM CDT Ambulatory Discharge Medication List [address] [place], [place] [address] [place] [phone] Visit Information Name: CHANRDIKA ESQUEDA JUNIOR [facility] Number: [id number] Visit Date: 09/19/2013 15:35:22 [...] day x 3 day(s) New Routed to [place] [address] [place], [place] [phone] norgestimate-ethinyl estradiol (Tri-Sprintec oral tablet) 1 Tablet(s), [...] MD Signed On:19-SEP-2013 15:26:17 Additional Information: Source: [facility] POWERCHART Document Id: [id number] Miscellaneous - Shahida Arreola L.P.NJoshua - 09/19/2013 3:24 PM CDT Adult Steel Heater Intake/History Adult Steel Heater Intake/History Entered On: 09/19/2013 15:26 CDT Performed [...] Information Given By : Patient Languages : Egyptian SHAHIDA ARREOLA DUMP TRUCK DRIVER - 09/19/2013 15:24 CDT Subjective Pain Symptoms : No SHAHIDA ARREOLA DUMP TRUCK DRIVER - 09/19/2013 15:24 CDT Dependent Habits Tobacco Use/Currently Using : No Exposure to Tobacco Smoke : Other: Never Smoking Status : Never smoker SHAHIDA ARREOLA [facility] - 09/19/2013 15:24 CDT Tobacco Use Grid Last Use : never SHAHIDA ARREOLA DUMP TRUCK DRIVER - 09/19/2013 15:24 CDT Caffeine Use Grid Caffeine Use : Current Type : Chocolate, Soft drinks Frequency : Occasionally SHAHIDA ARREOLA DUMP TRUCK DRIVER - 09/19/2013 15:24 CDT Recreational Drug Use Grid Drug Use : None SHAHIDA ARREOLA [facility] - 09/19/2013 15:24 CDT Source: [facility] Veriana NetworksCHART Document Id: [id number] CDT!34 documented in this encounter Plan of [...] Strep A Screen (09/19/2013 3:40 PM CDT) [facility] gist Method Time Signature HXRapid Strep POWERCHART Confirmation HXFinal Negative POWERCHART Specimen Anatomical Collection Method Collection Time Receive d Time (Source) Location / / Volume Laterality Throat 09/19/2013 3:40 PM 4 3:40 CDT PM CDT Frankie Sood M.D. LAB MICROBIOLOGY - GENERAL O RDERABLES Performing Organization Address City/State/ZIP Code Phon e Number POWERCHART Rapid Strep A Screen (09/19/2013 3:40 PM CDT) [facility] gist Method Time Signature HXStrep A [...]
--- OUTSIDE RECORDS SUMMARY | 2022-03-07 20:15 | XMS_ITS | Encounter Summary ---
:[address] [facility] [address] Care Team Providers Name Role Phone Unavailable Primary Care Provider Unavailable Encounter Details Date Type Department Care Team Description 12/23/2011 [facility] Zaynab Eli M.D. [address] [place], [place] [phone] (Wo rk) Social History [...]
--- OUTSIDE RECORDS SUMMARY | 2022-03-07 20:15 | XMS_ITS | Encounter Summary ---
:1995 Author Organization [facility] Address [address] [place] [address] Care Team Providers Name Role Phone Unavailable Primary Care Provider Unavailable Encounter Details Date Type Department Care Team Description 04/29/2013 Hospital Encounter HX [facility] Stephen Sarabia Jr., M.D. [address] [place], [place] [phone] (Wo rk) Social History Tobacco Use Types Packs/Day Years Used Date Smoking Tobacco: Never Assessed Sex Assigned at Date Recorded Female 07/27/2019 2:28 PM CDT documented as of this encounter Progress Notes Delicia Treviño, C.O.T. - 04/29/2013 11:20 AM CST [facility] Exam [facility] Exam Entered On: 04/29/2013 11:27 NEWS PRODUCER Performed On: 04/29/2013 11:20 NEWS PRODUCER by DELICIA TREVIÑO Chief Complaint and History Pain Symptoms : No Smoking Status : Never smoker Comment : Pt here for complete eye exam No [facility] co's Family History Reviewed : 04/29/2013 NEWS PRODUCER DELICIA TREVIÑO - 04/29/2013 11:20 NEWS PRODUCER Optometry Exam Familty History Grid Cancer : Sibling Diabetes : Grandparents DELICIA TREVIÑO - 04/29/2013 11:20 NEWS PRODUCER Vision Testing Right Eye Vision Testing : Without correction, 20/20, -1 Left Eye Vision Testing : Without correction, 20/20, -1 Both Eyes Vision Testing : Without correction, 20/20, -1 DELICIA TREVIÑO - 04/29/2013 11:20 NEWS PRODUCER Refraction Right Eye Manifest Grid Date : 04/22/2012 NEWS PRODUCER 04/29/2013 NEWS PRODUCER Performed by : Tech Tech Sphere : 0 -0.25 Visual Acuity Distance : 20/20 20/20 DELICIA TREVIÑO - 04/29/2013 11:20 NEWS PRODUCER DELICIA TREVIÑO - 04/29/2013 11:20 NEWS PRODUCER Left Eye Manifest Grid Date : 04/22/2012 NEWS PRODUCER 04/29/2013 NEWS PRODUCER Performed by : Tech Tech Sphere : 0 -0.25 Visual Acuity Distance : 20/20 20/20 DELICIA TREVIÑO - 04/29/2013 11:20 NEWS PRODUCER DELICIA TRVEIÑO - 04/29/2013 11:20 NEWS PRODUCER Ocular Testing EOMS : Normal Pupils : PERRLA Cover Test : Normal Comment : méndez full DELICIA TREVIÑO - 04/29/2013 11:20 NEWS PRODUCER Intraoccular Pressures Intraoccular Pressures Grid Date : 04/22/2012 NEWS PRODUCER 04/22/2012 NEWS PRODUCER 04/29/2013 NEWS PRODUCER 04/29/2013 NEWS PRODUCER Eye : RE LE RE LE Applanation : 15 15 15 15 Eye Drops : Fluress Fluress Fluress Fluress DELICIA TREVIÑO - 04/29/2013 11:20 NEWS PRODUCER DELICIA TREVIÑO - 04/29/2013 11:20 NEWS PRODUCER DELICIA TREVIÑO - 04/29/2013 11:20 NEWS PRODUCER DELICIA TREVIÑO - 04/29/2013 11:20 NEWS PRODUCER Eye Drops Exam Date of Last Eye Exam : 04/29/2013 NEWS PRODUCER Phenylephrine 2.5% Eye Drops Eye : Both eyes Phenylephrine 2.5% Eye Drops Amount : One drop Phenylephrine 2.5% Eye Drops Time : 11:26 NEWS PRODUCER Tropicamide 1% Eye Drops Eye : Both eyes Tropicamide 1% Eye Drops Amount : One drop Tropicamide 1% Eye Drops Time : 11:26 NEWS PRODUCER DELICIA TREVIÑO - 04/29/2013 11:20 NEWS PRODUCER Ocular Health Ocular Health Ext Rt Eye Grid Ext Rt Eye - Lids/Lashes : Normal Ext Rt Eye - Conjunctiva : Normal Ext Rt Eye - Cornea : Normal Ext Rt Eye - A/C : Normal Ext Rt Eye - Iris : Normal Ext Rt Eye - Lens : Normal STEPHEN FIGUEROA MD - 04/29/2013 11:43 NEWS PRODUCER Ocular Health Ext Lt Eye Grid Ext Lt Eye - Lids/Lashes : Normal Ext Lt Eye - Conjunctiva : Normal Ext Lt Eye - Cornea : Normal Ext Lt Eye - A/C : Normal Ext Lt Eye - Iris : Normal Ext Lt Eye - Lens : Normal STEPHEN FIGUEROA MD - 04/29/2013 11:43 NEWS PRODUCER Ocular Health Int Rt Eye Grid Int [...] Normal STEPHEN FIGUEROA MD - 04/29/2013 11:43 NEWS PRODUCER Ocular Health Int Lt Eye Grid Int [...] Normal STEPHEN FIGUEROA MD - 04/29/2013 11:43 NEWS PRODUCER Assessment Findings : Myopia Plan : Return for complete exam in one year or PRN STEPHEN FIGUEROA MD - 04/29/2013 11:43 NEWS PRODUCER Source: [facility] POWERCHART Document Id: [id number] NEWS PRODUCER!36 PRODUCER documented in this encounter Miscellaneous Notes Miscellaneous - Stephen Figueroa M.D. - 04/29/2013 5:24 PM CST Ambulatory Patient Summary [address] [address] Visit Information Name: CHANDRIKA ESQUEDA [facility] Number: [id number] Current Date: 04/29/2013 17:24:08 [...] 02/15/2011 06/02/11 fructose / per [facility] Allergic reaction to drug, not elsewhere classified Active 06/03/2011 06/03/11 amoxicillin Your Upcoming Appointments Date Time Location Reason Provider No Appointments found Attention: Contact your local Clinic if further appointment detail needed. Your Goals/Additional instructions: Source: [facility] POWERCHART Document Id: [id number] PRODUCER Miscellaneous - Stephen Figueroa M.D. - 04/29/2013 5:24 PM CST Ambulatory Depart Summary [address] [address] Visit Information Name: CHANDRIKA ESQUEDA [facility] Number: [id number] Visit Date: 04/29/2013 17:24:06 [...] in case of emergency. Additional Information: Source: [facility] POWERCHART Document Id: [id number] PRODUCER documented in this encounter Plan of Treatment Not on filedocumented as of this encounter Visit Diagnoses Not on filedocumented in this encounter
--- OUTSIDE RECORDS SUMMARY | 2022-03-07 20:15 | XMS_ITS | Encounter Summary ---
:1995 Author Organization [facility] [place] [address] Care Team Providers Name Role Phone Unavailable Primary Care Provider Unavailable Encounter Details Date Type Department Care Team Description 04/09/2012 Hospital Encounter HX [facility] NURSE Zaynab Nunn i, M.D. [address] [place] [phone] (Wo rk) Social History Tobacco Use Types Packs/Day Years Used Date Smoking Tobacco: Never Assessed Sex Assigned at Date Recorded Female 07/27/2019 2:28 PM CDT documented as of this encounter Plan of Treatment Not on filedocumented as of this encounter Visit Diagnoses Not on filedocumented in this encounter
--- OUTSIDE RECORDS SUMMARY | 2022-03-07 20:15 | XMS_ITS | Encounter Summary ---
:1995 Author Organization [facility] Address [address] [place] [address] Care Team Providers Name Role Phone Unavailable Primary Care Provider Unavailable Encounter Details Date Type Department Care Team Description 12/13/2012 Hospital Encounter HX [facility] Zaynab Barr i, M.D. [address] [place] [phone] (Wo rk) Social History Tobacco Use Types [...] Skelton M.D. - 12/13/2012 10:04 AM CDT [id number] CHIEF COMPLAINT/ REASON FOR VISIT Sore throat. [...] EXTREMITIES: Within normal limits. IMPRESSION/REPORT/PLAN 1. Mononucleosis: Lynn test is positive. The patient is given [...] by Maria Luisa Rosales, a trained medical equipment sales. The creation of this record is based on the scribe's personal observations and the provider's statements to them. This document has been chalo cked and approved by the attending provider. Zaynab Morrow M.D./burt Electronically Signed By: ZAYNAB MORROW MD On: 12/15/2012 10:35 PM Modified by and Electronically Signed by: ZAYNAB MORROW MD On: 12/15/2012 10:35 PM Source: [facility] MHSDOLBEYNONRADSYS Document Id: [id number] documented in this encounter Miscellaneous Notes Miscellaneous - Zaynab Skelton M.D. - 12/13/2012 9:47 PM CDT Ambulatory Patient Summary [address] [address] Visit Information Name: CHANDRIKA ESQUEDA [facility] Number: [id number] Current Date: 12/13/2012 21:47:18 Physicians [...] 02/15/2011 06/02/11 fructose / per [facility] Allergic reaction to drug, not elsewhere classified Active 06/03/2011 06/03/11 amoxicillin Your Upcoming Appointments Date Time Location Reason Provider No Appointments found Your Goals/Additional instructions: Source: [facility] POWERCHART Document Id: [id number] Miscellaneous - Zaynab Skelton M.D. - 12/13/2012 9:47 PM CDT Ambulatory Depart Summary [address] [address] Visit Information Name: CHANDRIKA ESQUEDA [facility] Number: [id number] Visit Date: 12/13/2012 21:47:17 Attending [...] [facility] POWERCHART Document Id: [id number] Miscellaneous - Conversion, Historical Provider Ser - 12/13/2012 10:08 AM CDT Adult Early Childhood Specialist Intake/History Adult Early Childhood Specialist Intake/History Entered On: 12/13/2012 10:10 CDT Performed [...] Mass Index : 20.62 kg/m2 [facility] - 12/13/2012 10:08 CDT General Info Information Given By : Patient Languages : Nepali [facility] - 12/13/2012 10:08 CDT Subjective Pain Symptoms : Yes [facility] - 12/13/2012 10:08 CDT Pain Pain Assessment Grid Pain 1 Location : Generalized [facility] - 12/13/2012 10:08 CDT Dependent Habits Tobacco Use/Currently Using : No Exposure to Tobacco Smoke : Other: Never Smoking Status : Never smoker [facility] - 12/13/2012 10:08 CDT Tobacco Use Grid Last Use : never [facility] - 12/13/2012 10:08 CDT Caffeine Use Grid Caffeine Use : Current Type : Chocolate, Soft drinks Frequency : Occasionally [facility] - 12/13/2012 10:08 CDT Source: [employer] Document Id: [id number] CDT!37 documented in this encounter Plan of [...] HXPERIPH SMEAR EXAM (12/13/2012 10:36 AM CDT) [facility] Method Time Signature HXWBC Est. agree agree POWERCHART PLT Estimate adequate POWERCHART HXPeriph Morph appears POWERCHART normal Specimen (Source) Anatomical Collection Method Collection Time Re ceived Time Location / / Volume Laterality Blood 12/13/2012 10:36 AM CDT Zaynab Roberts M.D. LAB HISTORICAL ORDERS Performing Organization Address City/[facility] Phon e Number POWERCHART (ABNORMAL) Automated Differential (12/13/2012 10:36 AM CDT) Patholo gist Method Time Signature Neutro % 59.3 34.0 - POWERCHART 71.1 Lymphocytes % 27.1 19.3 - POWERCHART 51.7 HX Lynn % 12.1 4.7 - 12.5 POWERCHART HX [...] M.D. LAB BLOOD ADD-ON Performing Organization Address City/[facility] Phon e Number POWERCHART (ABNORMAL) CBC with Differential (12/13/2012 10:36 AM CDT) Analysis Performed At Patho logist Time Signature Leukocytes 3.9 3.4 - 10.5 POWERCHART X109L Erythrocytes 4.28 3.90 - POWERCHART 5.03 N0201D Hemoglobin 12.8 12.0 - POWERCHART 15.5 GDL [...] M.D. LAB BLOOD ADD-ON Performing Organization Address City/[facility] Code Phon e Number POWERCHART (ABNORMAL) Mononucleosis Screen, POCT (12/13/2012 10:36 AM CDT) [facility] Method Time Signature Infectious (POSITIVE) POWERCHART Lynn Test, S HXFinal Positive POWERCHART HXFinal Reference: POWERCHART Negative Specimen (Source) Anatomical Collection Method Collection Time Re ceived Time Location / / Volume Laterality Blood 12/13/2012 10:36 AM CDT Zaynab Roberts M.D. LAB POCT ORDERABLES-MA NUAL Performing Organization Address City/[facility] Phon e Number POWERCHART Rapid Strep A Screen (12/13/2012 10:18 AM CDT) [facility] Method Time Signature HXRapid Strep POWERCHART Confirmation HXFinal Negative POWERCHART Specimen Anatomical Collection Method Collection Time Receive d Time (Source) Location / / Volume Laterality Throat 12/13/2012 10:18 12/13/2012 AM CDT 10:18 AM CDT Zaynab Roberts M.D. LAB MICROBIOLOGY - GEN ERAL ORDERABLES Performing Organization Address City/[facility] Phon e Number POWERCHART Rapid Strep A Screen (12/13/2012 10:18 AM CDT) [facility] Method Time Signature HXStrep A POWERCHART Screen Rapid HXFinal Negative for POWERCHART Strep Group A by rapid screen. HXFinal Culture POWERCHART confirmation to follow. Specimen (Source) Anatomical Collection Method Collection Time Re ceived Time Location / / Volume Laterality Throat 12/13/2012 10:18 AM CDT Zaynab Roberts M.D. LAB MICROBIOLOGY - GEN ERAL ORDERABLES Performing Organization Address City/[facility] Phon e Number POWERCHART documented in this encounter Visit Diagnoses Not on filedocumented in this encounter
--- OUTSIDE RECORDS SUMMARY | 2022-03-07 20:15 | XMS_ITS | Encounter Summary ---
:1995 Author Organization [facility] [place] [address] Care Team Providers Name Role Phone Unavailable Primary Care Provider Unavailable Encounter Details Date Type Department Care Team Description 07/25/2014 Hospital Encounter HX [facility] FBHB FAMILYPRA Fabi Kam M.D. [address], [place] [address] (Wo rk) Social History [...] Kam M.D. - 07/25/2014 9:56 AM CDT [id number] CHIEF COMPLAINT/REASON FOR VISIT Vaginal discharge. HISTORY [...] provider up at but her college in [place] and had complete STD evaluation and [...] KAM MD On: 07/26/2014 02:08 PM Source: [facility] MHSDOLBEYNONRADSYS Document Id: [id number] documented in this encounter Nursing Notes Leandra Davenport L.PJoshuaNJoshua - 07/27/2014 11:56 AM CDT Labs 07-25-14 Result card sent. Electronically Signed By: LEANDRA DAVENPORT LPN On: 07/27/2014 11:56 AM Source: [facility] POWERCHART Document Id: [id number] documented in this encounter Miscellaneous Notes Miscellaneous - Kylah Kam M.D. - 07/25/2014 12:20 PM CDT Ambulatory Patient Summary [address] [phone] Visit Information Name: CHANDRIKA ESQUEDA [facility] Number: [id number] Current Date: 07/25/2014 12:20:52 Physicians [...] Oral, once a day New Routed to [address] [id number] norgestimate-ethinyl estradiol (Tri-Sprintec oral tablet) 1 Tablet(s), [...] Malabsorption Active 02/15/2011 06/02/11 fructose / per [facility] Allergic reaction to drug, not elsewhere classified Active 06/03/2011 06/03/11 amoxicillin Your Upcoming Appointments Date Time Location Provider No Appointments found Attention: Contact your local Clinic if further appointment detail needed. Your Goals/Additional instructions: Source: [facility] POWERCHART Document Id: [id number] Miscellaneous - Kylah Kam M.D. - 07/25/2014 12:20 PM CDT Ambulatory Discharge Medication List [place] [id number] [facility] [place] [place] [phone] Visit Information Name: CHANDRIKA ESQUEDA [facility] Number: [id number] Visit Date: 07/25/2014 12:20:51 Attending [...] Oral, once a day New Routed to [address] [place], [place] [phone] norgestimate-ethinyl estradiol (Tri-Sprintec oral tablet) 1 Tablet(s), [...] MD Signed On:25-JUL-2014 12:20:43 Additional Information: Source: [facility] POWERCHART Document Id: [id number] Miscellaneous - Leandra Davenport L.P.NJoshua - 07/25/2014 10:00 AM CDT Adult Sack Lifter Intake/History Adult Sack Lifter Intake/History Entered On: 07/25/2014 10:03 CDT Performed On: 07/25/2014 10:00 CDT by LEANDRA ADVENPORT LPN Intake Chief Complaint : vag. discharge [...] 07/25/2014 10:00 CDT General Info Languages : Pashto Is Patient Female and 13-50 no hysterectomy [...] DAVENPORT LPN - 07/25/2014 10:00 CDT Source: [employer] Document Id: [id number] CDT!39 documented in this encounter Plan of [...] Prep Exam, Urogenital (07/25/2014 10:30 AM CDT) [facility] gist Method Time Signature [...] - GENERAL O RDERABLES Performing Organization Address City/[facility] Phon e Number POWERCHART HX-C trach Amp RNA (07/25/2014 10:28 AM CDT) [facility] gist Method Time Signature Chlamydia Negative POWERCHART trachomatis amplified RNA Specimen (Source) Anatomical Collection Method Collection Time Re ceived Time Location / / Volume Laterality 07/25/2014 10:28 AM CDT Narrative POWERCHART - 07/26/2014 7:41 PM CDT Test Performed by: [place] [address] Sewer: Rishi Gauthier II, M.D., Ph.D. Kylah Kam M.D. LAB HISTORICAL ORDERS Performing Organization Address City/[facility]/ZIP Code Phon e Number POWERCHART HX-C trach Amp Src (07/25/2014 10:28 AM CDT) [facility] Method Time Signature HXC trach Amp Endocervical POWERCHART [place] Specimen (Source) Anatomical Collection Method Collection Time Re ceived Time Location / / Volume Laterality 07/25/2014 10:28 AM CDT Kylah Kam M.D. LAB HISTORICAL ORDERS Performing Organization Address City/[facility] Code Phon e Number POWERCHART documented in this encounter Visit Diagnoses Not on filedocumented in this encounter
--- OUTSIDE RECORDS SUMMARY | 2022-03-07 20:15 | XMS_ITS | Encounter Summary ---
:1995 Author Organization [facility] [place] [address] Care Team Providers Name Role Phone Unavailable Primary Care Provider Unavailable Encounter Details Date Type Department Care Team Description 12/01/2011 Hospital Encounter HX [facility] FAMILY[facility] Margarita Barr i, M.D. [address] [place] [phone] (Wo rk) Social History Tobacco Use Types [...] Skelton M.D. - 12/01/2011 2:26 PM CDT [id number] CHIEF COMPLAINT/REASON FOR VISIT Not feeling well. [...] MORROW MD On: 12/29/2011 11:08 AM Source: [facility] MHSDOLBEYNONRADSYS Document Id: [id number] documented in this encounter Miscellaneous Notes Miscellaneous - Margarita Skelton M.D. - 12/01/2011 5:16 PM CDT Ambulatory Depart Summary [address] [address] Visit Information Name: CHANDRIKA ESQUEDA Visit Date: [...] your provider for clarification. Additional Information: Source: [facility] POWERCHART Document Id: [id number] Miscellaneous - Margarita Skelton M.D. - 12/01/2011 5:16 PM CDT Ambulatory Patient Summary [address] [address] Visit Information Name: CHANDRIKA ESQUEDA Current Date: [...] Malabsorption Active 02/15/2011 06/02/11 fructose / per [facility] Allergic reaction to drug, not elsewhere classified Active 06/03/2011 06/03/11 amoxicillin Your Upcoming Appointments Date Time Location Reason Provider No Appointments found Your Goals/Additional instructions: Source: [facility] POWERCHART Document Id: [id number] Miscellaneous - Conversion, Historical Provider Ser - 12/01/2011 2:51 PM CDT Pediatric Cytogeneticist Intake/History Pediatric Cytogeneticist Intake/History Entered On: 12/01/2011 14:52 CDT Performed [...] CNP; Reviewed Date: 12/01/2011 14:50 CDT Source: [facility] POWERCHART Document Id: [id number] documented in this encounter Plan of Treatment [...] Strep A Screen (12/01/2011 3:24 PM CDT) [facility] [employer] Method Time Signature HXRapid Strep POWERCHART Confirmation HXFinal Negative POWERCHART Specimen Anatomical Collection Method Collection Time Receive d Time (Source) Location / / Volume Laterality Throat 12/01/2011 3:24 PM 2 3:24 CDT PM CDT Margarita Roberts M.D. LAB MICROBIOLOGY - GEN ERAL ORDERABLES Performing Organization Address City/State/ZIP Code Phon e Number POWERCHART Rapid Strep A Screen (12/01/2011 3:24 PM CDT) [facility] [employer] Method Time Signature HXStrep A POWERCHART Screen [...]
--- OUTSIDE RECORDS SUMMARY | 2022-03-07 20:15 | XMS_ITS | Encounter Summary ---
:1995 Author Organization [facility] [place] [address] Care Team Providers Name Role Phone Unavailable Primary Care Provider Unavailable Encounter Details Date Type Department Care Team Description 08/25/2011 Hospital Encounter HX [facility] FAMILY[facility] Margarita Barr i, M.D. [address] [place] [phone] (Wo rk) Social History Tobacco Use Types [...] Skelton M.D. - 08/25/2011 12:00 AM CDT [id number] CHIEF COMPLAINT/ REASON FOR VISIT Dysmenorrhea. HISTORY [...] MORROW MD On: 09/26/2011 01:39 PM Source: [facility] MHSDOLBEYNONRADSYS Document Id: [id number] documented in this encounter Miscellaneous Notes Miscellaneous - Margarita Skelton M.D. - 08/25/2011 9:06 PM CDT Ambulatory Depart Summary [address] [address] Visit Information Name: CHANDRIKA ESQUEDA Visit Date: [...] your provider for clarification. Additional Information: Source: [facility] POWERCHART Document Id: [id number] Miscellaneous - Margarita Skelton M.D. - 08/25/2011 9:06 PM CDT Ambulatory Patient Summary [address] [address] Visit Information Name: CHANDRIKA ESQUEDA Current Date: [...] Comments Malabsorption Active 02/15/2011 fructose / per [facility] Allergic reaction to drug, not elsewhere classified Active 06/03/2011 amoxicillin Your Upcoming Appointments Date Time Location Reason Provider No Appointments found Your Goals/Additional instructions: Source: [employer] Document Id: [id number] Miscellaneous - Conversion, Historical Provider Ser - 08/25/2011 2:10 PM CDT Pediatric Coat Checker Intake/History Pediatric Coat Checker Intake/History Entered On: 08/25/2011 14:14 CDT Performed [...] PRICILA BEDOLLA CNP; Reviewed Date: 06/03/2011 14:15 SPRING PRODUCTION SUPERVISOR Source: [facility] POWERCHART Document Id: [id number] CDT!22 documented in this encounter Plan of Treatment Not on filedocumented as of this encounter Visit Diagnoses Not on filedocumented in this encounter
--- OUTSIDE RECORDS SUMMARY | 2022-03-07 20:15 | XMS_ITS | Encounter Summary ---
:1995 Author Organization [facility] [place] [address] Care Team Providers Name Role Phone Unavailable Primary Care Provider Unavailable Encounter Details Date Type Department Care Team Description 08/17/2012 Hospital Encounter HX [facility] PED[facility] Sa chalino Sood M.D. [phone] (Wo rk) Social History Tobacco Use Types [...] Body Mass Index 21.37 06/30/2012 10:01 AM CHARGING CRANE OPERATOR Body Mass Index Percentile 49.66 % 08/17/2012 10:55 AM CDT Growth Chart: [facility] (Girls, 2-20 Years) documented in this encounter Progress Notes Frida Sood M.D. - 08/17/2012 10:49 AM CDT [id number] CHIEF COMPLAINT/REASON FOR VISIT Nasal congestion, cough, [...] SOOD MD On: 08/18/2012 02:24 PM Source: [facility] MHSDOLBEYNONRADSYS Document Id: [id number] documented in this encounter Miscellaneous Notes Miscellaneous - Frida Sood M.D. - 08/17/2012 11:08 AM CDT Ambulatory Patient Summary [address] [address] Visit Information Name: CHANDRIKA ESQUEDA [facility] Number: [id number] Current Date: 08/17/2012 11:08:00 Physicians [...] No Appointments found Your Goals/Additional instructions: Source: [facility] POWERCHART Document Id: [id number] Miscellaneous - Frida Sood M.D. - 08/17/2012 11:08 AM CDT Ambulatory Depart Summary [address] [address] Visit Information Name: LILLYCHANDRIKA JUNIOR [facility] Number: [id number] Visit Date: 08/17/2012 11:08:00 Attending Provider: FRIDA SOOD MD Primary Care Provider: MARGARITA MORROW MD LILYLRITESHISABEL PACHECO has been given the following list [...] your provider for clarification. Additional Information: Source: [facility] eTherapeuticsCHART Document Id: [id number] Miscellaneous - Conversion, Historical Provider Ser - 08/17/2012 10:55 AM CDT Pediatric Finished Metal Repairer Intake/History Pediatric Finished Metal Repairer Intake/History Entered On: 08/17/2012 10:57 CDT Performed [...] Info Preferred Name : Chandrika Languages : Stateless LUCIE NICHOLS LPN - 08/17/2012 10:55 CDT [...] NICHOLS LPN - 08/17/2012 10:55 CDT [facility] Document Id: [id number] CDT!31 Miscellaneous - Conversion, Historical Provider Ser [...] NICHOLS LPN - 08/17/2012 10:53 CDT Source: [facility] eTherapeuticsCHART Document Id: [id number] CDT!31 documented in this encounter Plan of Treatment Not on filedocumented as of this encounter Visit Diagnoses Not on filedocumented in this encounter
--- OUTSIDE RECORDS SUMMARY | 2022-03-07 20:15 | XMS_ITS | Encounter Summary ---
:1995 Author Organization [facility] [place] [address] Care Team Providers Name Role Phone Unavailable [...] 01/26/2012 10:19 AM C DT Growth Chart: [facility] [place] 2[place] (Girls, 2-20 Years) documented in this encounter [...] Electronically signed by: ?? Anmol Whitley MD [phone] 23-Feb-2012 14:37 ?Harris Stevens MD [phone] 23-Feb-2012 14:37 Narrative 02/23/2012 2:37 PM CDT [...] millicurie Electronically signed by: Anmol Whitley MD [phone] 23-Feb-2012 14:37 Harris Stevens MD [phone] 23-Feb-2012 14:37 Alicja Olivares M.D. IMG NM [...] Electronically signed by: ?? Purnima Cerda MD [phone] 27-Jan-2012 11:49 ?Jean Carlos Fine MD. ??27-Jan-2012 [...] seen. Electronically signed by: Purnima Cerda MD [phone] 27-Jan-2012 11:49 Jean Carlos Fine MD. 15 27-Jan-2012 11:49 Alicja Olivares M.D. IMG US [...] CBC with Differential (01/26/2012 11:52 AM CDT) [facility] Method Time Signature Hemoglobin 13.0 12.0 - [facility] 15.5 G/DL LABORATORIES - [facility] Hematocrit 39.4 34.9 - [facility] 44.5 % LABORATORIES - [facility] RBC Distrib 12.4 11.9 - [facility] Width 15.5 % [facility] Platelet Count 219 150 - 450 [facility] X10(9)/L LABORATORIES [facility] Leukocytes 5.6 3.5 - [facility] 10.5 LABORATORIES - X10(9)/L [facility] Neutrophils 3.69 1.70 - [facility] 7.00 LABORATORIES - X10(9)/L [facility] Lymphocytes 1.55 0.90 - [facility] 2.90 LABORATORIES - X10(9)/L [facility] Monocytes 0.23 (L) 0.30 - [facility] 0.90 LABORATORIES - X10(9)/L [facility] Erythrocytes 4.39 3.90 - [facility] 5.03 LABORATORIES - X10(12)/L [facility] MCV 89.7 81.6 - [facility] 98.3 FL LABORATORIES - [facility] Eosinophils 0.08 0.05 - [facility] 0.50 LABORATORIES - X10(9)/L [facility] Basophils 0.01 0.00 - [facility] 0.30 LABORATORIES - X10(9)/L [facility] Specimen Anatomical Collection Method Collection Time Receive d Time (Source) Location / / Volume Laterality 01/26/2012 11:52 01/26/2012 AM CDT 11:52 AM CDT Alicja Olivares M.D. LAB BLOOD ADD-ON Performing Organization Address City/State/ZIP Code Phon e Number [facility]ORATORIES - [address] [address] [facility] Glucose, Fasting (01/26/2012 11:52 AM CDT) P athologist Signature Last Intake 3 HR [facility] Glucose, P 87 70 - 100 [facility] MG/DL LABORATORIES - [facility] Specimen Anatomical Collection Method Collection Time Receive d Time (Source) Location / / Volume Laterality 01/26/2012 11:52 01/26/2012 AM CDT 11:52 AM CDT Alicja Olivares M.D. LAB BLOOD NON ADD-ON Performing Organization Address City/State/[facility] Code Phon e Number [facility] LABORATORIES - [address] [place] [address] [facility] GGT (Gamma-Glutamyltransferase) (01/26/2012 11:51 AM CDT) Component Value Ref Test Analysis Performed At Patholo gist Range Method Time Signature Gamma 12 6 - 29 [facility] Glutamyltransferase U/L LABORATORI ES - (GGT), S [facility] Specimen Anatomical Collection Method Collection Time Receive d Time (Source) Location / / Volume Laterality 01/26/2012 11:51 01/26/2012 AM CDT 11:51 AM CDT Alicja Olivares M.D. LAB BLOOD ADD-ON Performing Organization Address City/State/ZIP Code Phon e Number [facility]IES - [address] [address] [facility] Bilirubin, Total (01/26/2012 11:51 AM CDT) athologist Signature Bilirubin, 0.3 0.1 - 1.0 [facility] Total, S MG/DL [facility] Specimen Anatomical Collection Method Collection Time Receive d Time (Source) Location / / Volume Laterality 01/26/2012 11:51 01/26/2012 AM CDT 11:51 AM CDT Alicja Olivares M.D. LAB BLOOD ADD-ON Performing Organization Address City/[facility]/ZIP Code Phon e Number [facility] - [address] [address] [facility] Amylase, Total (01/26/2012 11:51 AM CDT) athologist Signature Amylase, 63 21 - 110 [facility] Total, S U/L [facility] Specimen Anatomical Collection Method Collection Time Receive d Time (Source) Location / / Volume Laterality 01/26/2012 11:51 01/26/2012 AM CDT 11:51 AM CDT Alicja Olivares M.D. LAB BLOOD ADD-ON Performing Organization Address City/[facility]/ZIP Code Phon e Number [facility] - [address] [address] [facility] Chloride (01/26/2012 11:51 AM CDT) athologist Signature Chloride, S 105 102 - 112 [facility] MMOL/L [facility] Specimen Anatomical Collection Method Collection Time Receive d Time (Source) Location / / Volume Laterality 01/26/2012 11:51 01/26/2012 AM CDT 11:51 AM CDT Alicja Olivares M.D. LAB BLOOD ADD-ON Performing Organization Address City/[facility]/ZIP Code Phon e Number [facility] - [address] [address] [facility] Lipase (01/26/2012 11:51 AM CDT) athologist Signature Lipase, S 29 10 - 73 U/L [facility] Specimen Anatomical Collection Method Collection Time Receive d Time (Source) Location / / Volume Laterality 01/26/2012 11:51 01/26/2012 AM CDT 11:51 AM CDT Alicja Olivares M.D. LAB BLOOD ADD-ON Performing Organization Address City/[facility]/ZIP Code Phon e Number [facility]IES - [address] [address] [facility] ALT (Alanine Aminotransferase) (01/26/2012 11:51 AM CDT) [facility] gist Method Time Signature Alanine 11 7 - 45 [facility] Aminotransferase U/L LABORATORIES - (ALT), [facility] Specimen Anatomical Collection Method Collection Time Receive d Time (Source) Location / / Volume Laterality 01/26/2012 11:51 01/26/2012 AM CDT 11:51 AM CDT Alicja Olivares M.D. LAB BLOOD ADD-ON Performing Organization Address City/[facility]/ZIP Code Phon e Number [facility]IES - [address] [address] [facility] Ammonia Level, Plasma (01/26/2012 11:51 AM CDT) P athologist Signature Ammonia, B <10 <50 MCG [facility] N/DL LABORATORIES - [facility] Specimen Anatomical Collection Method Collection Time Receive d Time (Source) Location / / Volume Laterality 01/26/2012 11:51 01/26/2012 AM CDT 11:51 AM CDT Alicja Olivares M.D. LAB BLOOD NON ADD-ON Performing Organization Address City/[facility]/ZIP Code Phon e Number [facility]IES - [address] [address] [facility] T4 (Thyroxine), Free (01/26/2012 11:51 AM CDT) [facility] gist Method Time Signature T4 1.3 SeeComment [facility] (Thyroxine), NG/DL LABORATORIES - Free, [facility] Comment: Reference Range: ? 0.8-1.8 ? Elevated values are seen in ? patients on thyroxine therapy. ? Specimen Anatomical Collection Method Collection Time Receive d Time (Source) Location / / Volume Laterality 01/26/2012 11:51 01/26/2012 AM CDT 11:51 AM CDT Alicja Olivares M.D. LAB BLOOD ADD-ON Performing Organization Address City/State/ZIP Code Phon e Number [facility]IES - [address] [address] [facility] Potassium (01/26/2012 11:51 AM CDT) P athologist Signature Potassium, S 4.7 3.6 - 5.2 [facility] MMOL/L [facility] Specimen Anatomical Collection Method Collection Time Receive d Time (Source) Location / / Volume Laterality 01/26/2012 11:51 01/26/2012 AM CDT 11:51 AM CDT Alicja Olivares M.D. LAB BLOOD ADD-ON Performing Organization Address City/[facility]/ZIP Code Phon e Number [facility] - [address] [address] [facility] Sodium (01/26/2012 11:51 AM CDT) P athologist Signature Sodium, S 141 135 - 145 [facility] MMOL/L [facility] Specimen Anatomical Collection Method Collection Time Receive d Time (Source) Location / / Volume Laterality 01/26/2012 11:51 01/26/2012 AM CDT 11:51 AM CDT Alicja Olivares M.D. LAB BLOOD ADD-ON Performing Organization Address City/State/ZIP Code Phon e Number [facility]IES - [address] [address] [facility] Creatinine with Estimated GFR (MDRD) (01/26/2012 11:51 AM CDT) P athologist Signature Creatinine 0.8 0.6 - 1.1 [facility] MG/DL [facility] Specimen Anatomical Collection Method Collection Time Receive d Time (Source) Location / / Volume Laterality 01/26/2012 11:51 01/26/2012 AM CDT 11:51 AM CDT Alicja Olivares M.D. LAB BLOOD ADD-ON Performing Organization Address City/[facility]/ZIP Code Phon e Number [facility]IES - [address] [address] [facility] Sedimentation Rate (01/26/2012 11:51 AM CDT) Patholo gist Method Time Signature Sedimentation 6 0 - 29 [facility] Rate, B MM/1 H [facility] Specimen Anatomical Collection Method Collection Time Receive d Time (Source) Location / / Volume Laterality 01/26/2012 11:51 01/26/2012 AM CDT 11:51 AM CDT Alicja Olivares M.D. LAB BLOOD ADD-ON Performing Organization Address City/State/ZIP Code Phon e Number [facility] - [address] [address] [facility] AST (Aspartate Aminotransferase) (01/26/2012 11:51 AM CDT) athologist Signature AST, Total, S 16 8 - 43 U/L [facility] Specimen Anatomical Collection Method Collection Time Receive d Time (Source) Location / / Volume Laterality 01/26/2012 11:51 01/26/2012 AM CDT 11:51 AM CDT Alicja Olivares M.D. LAB BLOOD ADD-ON Performing Organization Address City/State/ZIP Code Phon e Number [facility] - [address] [address] [facility] BUN (Blood Urea Nitrogen) (01/26/2012 11:51 AM CDT) P athologist Signature BUN (Blood 12 7 - 20 [facility] Urea MG/DL LABORATORIES - Nitrogen), S [facility] Specimen Anatomical Collection Method Collection Time Receive d Time (Source) Location / / Volume Laterality 01/26/2012 11:51 01/26/2012 AM CDT 11:51 AM CDT Alicja Olivares M.D. LAB BLOOD ADD-ON Performing Organization Address City/State/ZIP Code Phon e Number [facility] - [address] [address] [facility] S-TSH (Thyroid-Stimulating Hormone - Sensitive) (01/26/2012 11:51 AM CDT) P athologist Signature TSH, Sensitive 1.0 0.3 - 5.0 [facility] MIU/L [facility] Specimen Anatomical Collection Method Collection Time Receive d Time (Source) Location / / Volume Laterality 01/26/2012 11:51 01/26/2012 AM CDT 11:51 AM CDT Alicja Olivares M.D. LAB BLOOD ADD-ON Performing Organization Address City/State/ZIP Code Phon e Number [facility] - [address] [place], [place] [address] [facility] CRP (C-Reactive Protein) (01/26/2012 11:51 AM CDT) P athologist Signature C-Reactive <3.0 <=8.0 MG/L [facility] Protein (CRP), LABORATORIES - S [facility] Specimen Anatomical Collection Method Collection Time Receive d Time (Source) Location / / Volume Laterality 01/26/2012 11:51 01/26/2012 AM CDT 11:51 AM CDT Alicja Olivares M.D. LAB BLOOD ADD-ON Performing Organization Address City/[facility]/ZIP Code Phon e Number [facility]IES - [address] [address] [facility] Bicarbonate (01/26/2012 11:51 AM CDT) P athologist Signature HX 27 22 - 29 [facility] Bicarbonate, MMOL/L LABORATORIES - P/S [facility] Specimen Anatomical Collection Method Collection Time Receive d Time (Source) Location / / Volume Laterality 01/26/2012 11:51 01/26/2012 AM CDT 11:51 AM CDT Alicja Olivares M.D. LAB BLOOD ADD-ON Performing Organization Address City/State/ZIP Code Phon e Number [facility]IES - [address] [address] [facility] Bilirubin, Direct (01/26/2012 11:51 AM CDT) P athologist Signature Bilirubin, 0.1 0.0 - 0.3 [facility] Direct, S MG/DL LABORATORIES - [facility] Specimen Anatomical Collection Method Collection Time Receive d Time (Source) Location / / Volume Laterality 01/26/2012 11:51 01/26/2012 AM CDT 11:51 AM CDT Alicja Olivares M.D. LAB BLOOD ADD-ON Performing Organization Address City/State/ZIP Code Phon e Number [facility]IES - [address] [place], [place] [address] [facility] (ABNORMAL) Alkaline Phosphatase (01/26/2012 11:51 AM CDT) Analysis Performed At Patho logist Time Signature Alkaline 50 (L) 52 - 144 [facility] Phosphatase, S U/L LABORATORIES - [facility] Specimen Anatomical Collection Method Collection Time Receive d Time (Source) Location / / Volume Laterality 01/26/2012 11:51 01/26/2012 AM CDT 11:51 AM CDT Alicja Olivares M.D. LAB BLOOD ADD-ON Performing Organization Address City/State/ZIP Code Phon e Number [facility]IES - [address] [place] [address] 05 [facility] Hx general Pathology Report (01/21/2012 11:34 AM CDT) Specimen Anatomical Collection Method Collection Time Receive d Time (Source) Location / / Volume Laterality 01/21/2012 11:34 01/21/2012 AM CDT 11:34 AM CDT Narrative [facility] - 01/21/2012 11:34 AM CDT ??01/21/2012 General Biopsy ? ([id number]) ? Requested By: Alicja Olivares M.D. ? ?[phone] ? Additional Physician: ??Rafaela Hughes [phone] ? SLIDE DISPOSITION: ? DIAGNOSIS: ?? A. [...] ? 01/22/2012 15:24 Interpreted by: Dinorah Corral.B.S. [id number] Report electronically signed by Bruna CorralB.S. Transcribed by: valerie 01/22/2012 14:16:11 ? TISSUE DESCRIPTION: [id number] A. Received in formalin labeled with th e patient's name and medical record number as [id number] and is label ed as duodenum-second part are two pink-henry irregular soft tissues , each at 0.3 cm in greatest dimension. Specimens are submitted en t jesús in cassette A1. ?? B. Received in formalin labeled with th e patient's name and medical record number as [id number] and is label ed as stomach-antrum is a 0.5 x 0.2 x 0.1 cm pale henry irregular s oft tissue. Specimen is submitted en toto in cassette B1. ?? C. Received in formalin labeled with th e patient's name and medical record number as [id number] and is label ed as esophagus-lower third [...] ? Procedure Note 07/25/2017 01/21/2012 General Biopsy ([id number]) Requested By: Alicja Olivares M.D. [phone] Additional Physician: Faustina Dee M.D. [id number] SLIDE DISPOSITION: DIAGNOSIS: A. Duodenum, 2nd part, [...] identified. 01/22/2012 15:24 Interpreted by: Dinorah Corral.B.S. [id number] Report electronically signed by Bruna CorralB.S. Transcribed by: valerie 01/22/2012 14:16:11 TISSUE DESCRIPTION: [id number] A. Received in formalin labeled with th e patient's name and medical record number as [id number] and is label ed as duodenum-second part are two pink-henry irregular soft tissues , each at 0.3 cm in greatest dimension. Specimens are submitted en t jesús in cassette A1. B. Received in formalin labeled with th e patient's name and medical record number as [id number] and is label ed as stomach-antrum is a 0.5 x 0.2 x 0.1 cm pale henry irregular s oft tissue. Specimen is submitted en toto in cassette B1. C. Received in formalin labeled with th e patient's name and medical record number as [id number] and is label ed as esophagus-lower third [...] Organization Address City/State/ZIP Code Phon e Number [facility] - [address] Hx general Pathology Report (01/21/2012 11:32 AM CDT) Specimen Anatomical Collection Method Collection Time Receive d Time (Source) Location / / Volume Laterality 01/21/2012 11:32 01/21/2012 AM CDT 11:32 AM CDT Narrative [facility] - [facility] - 01/21/2012 11:32 AM CDT ??01/21/2012 General Biopsy ? ([id number]) ? Requested By: Alicja Olivares M.D. ? ?[phone] ? Additional Physician: ??Rafaela Hughes [phone] ? SLIDE DISPOSITION: ? DIAGNOSIS: ?? A. ??Ileum, terminal ileum, endoscopic biopsy: ??Normal ileal mucosa. ?? B. ??Colon, random, endoscopic biopsy: ??Normal colonic mucosa. ??No evidence of collagenous or lymphocytic colitis. ? 01/22/2012 11:09 Interpreted by: Bruna CorralB.S. [id number] Report electronically signed by Bruna CorralB.S. Transcribed by: valerie 01/22/2012 10:21:22 ? TISSUE DESCRIPTION: [id number] A1B1 A. Received in formalin labeled with th e patient's name and medical record number as [id number] and is label ed as ileum-terminal ileum are two pale henry irregular soft tissues , ranging from 0.3-0.4 cm in greatest dimension. Specimens are submi tted en toto in cassette A1. ?? B. Received in formalin labeled with th e patient's name and medical record number as [id number] and is label ed as colon-random are five pink-henry irregular soft tissues, rangin g from 0.2-0.4 cm in greatest dimension. ??Specimens are submitted en toto in cassette B1. ?? Part A: ??Ileum, Terminal Ileum, endosc opic biopsy ?1 Term Ileum ?? Part B: ??Colon, Random, endoscopic bio psy ?1 Random ?? GI Path ? Procedure Note 07/25/2017 01/21/2012 General Biopsy ([id number]) Requested By: Alicja Olivares M.D. [phone] Additional Physician: Faustina Dee M.D. [phone] SLIDE DISPOSITION: DIAGNOSIS: A. Ileum, terminal ileum, endoscopic bi opsy: Normal ileal mucosa. B. Colon, random, endoscopic biopsy: No rmal colonic mucosa. No evidence of collagenous or lymphocytic colitis. 01/22/2012 11:09 Interpreted by: Bruna CorralB.S. [phone] Report electronically signed by Bruna CorralB.S. Transcribed by: valerie 01/22/2012 10:21:22 TISSUE DESCRIPTION: [id number] A1B1 A. Received in formalin labeled with th e patient's name and medical record number as [id number] and is label ed as ileum-terminal ileum are two pale henry irregular soft tissues , ranging from 0.3-0.4 cm in greatest dimension. Specimens are submi tted en toto in cassette A1. B. Received in formalin labeled with th e patient's name and medical record number as [id number] and is label ed as colon-random are five pink-henry irregular soft tissues, rangin g from 0.2-0.4 cm in greatest dimension. Specimens are submitted en t jesús in cassette B1. Part A: Ileum, Terminal Ileum, endoscop ic biopsy 1 Term Ileum Part B: Colon, Random, endoscopic biops y 1 Random GI Path Alicja Olivares M.D. LAB PATHOLOGY/CYTOLOGY ORDER KENYA Performing Organization Address City/[facility] Phon e Number [facility] - [address] ALT (Alanine Aminotransferase) (01/21/2012 10:28 AM CDT) Patholo gist Method Time Signature Alanine 12 7 - 45 [facility] Aminotransferase U/L LABORATORIES - (ALT), S [facility] Specimen Anatomical Collection Method Collection Time Receive d Time (Source) Location / / Volume Laterality 01/21/2012 10:28 01/21/2012 AM CDT 10:28 AM CDT Faustina Dee M.D. LAB BLOOD ADD-ON Performing Organization Address City/[facility] Phon e Number [facility] - [address] CRP (C-Reactive Protein) (01/21/2012 10:28 AM CDT) P athologist Signature C-Reactive <3.0 <=8.0 MG/L [facility] Protein (CRP), LABORATORIES - S [facility] Specimen Anatomical Collection Method Collection Time Receive d Time (Source) Location / / Volume Laterality 01/21/2012 10:28 01/21/2012 AM CDT 10:28 AM CDT Faustina Dee M.D. LAB BLOOD ADD-ON Performing Organization Address City/[facility] Phon e Number [facility] - [address] (ABNORMAL) CBC with Differential (01/21/2012 10:28 AM CDT) [facility] Method Time Signature Hemoglobin 13.1 12.0 - [facility] 15.5 G/DL LABORATORIES - [facility] Hematocrit 39.9 34.9 - [facility] 44.5 % LABORATORIES - [facility] RBC Distrib 12.6 11.9 - [facility] Width 15.5 % LABORATORIES - [facility] Platelet Count 197 150 - 450 [facility] X10(9)/L LABORATORIES - [facility] Lymphocytes 1.33 0.90 - [facility] 2.90 LABORATORIES - X10(9)/L [facility] Monocytes 0.22 (L) 0.30 - [facility] 0.90 LABORATORIES - X10(9)/L [facility] Erythrocytes 4.48 3.90 - [facility] 5.03 LABORATORIES - X10(12)/L [facility] MCV 89.1 81.6 - [facility] 98.3 FL LABORATORIES - [facility] Leukocytes 4.8 3.5 - [facility] 10.5 LABORATORIES - X10(9)/L [facility] Neutrophils 3.22 1.70 - [facility] 7.00 LABORATORIES - X10(9)/L [facility] Eosinophils 0.04 (L) 0.05 - [facility] 0.50 LABORATORIES - X10(9)/L [facility] Basophils 0.00 0.00 - [facility] 0.30 LABORATORIES - X10(9)/L [facility] Specimen Anatomical Collection Method Collection Time Receive d Time (Source) Location / / Volume Laterality 01/21/2012 10:28 01/21/2012 AM CDT 10:28 AM CDT Faustina Dee M.D. LAB BLOOD ADD-ON Performing Organization Address City/State/ZIP Code Phon e Number [facility] - [address] [place], [place] [address] [facility] Immunoglobulin A (IgA) (01/21/2012 10:28 AM CDT) [facility] Method Time Signature Immunoglobulin A 186 60 - 337 [facility] (IgA), S MG/DL LABORATORIES - [facility] Specimen Anatomical Collection Method Collection Time Receive d Time (Source) Location / / Volume Laterality 01/21/2012 10:28 01/21/2012 AM CDT 10:28 AM CDT Faustina Dee M.D. LAB BLOOD ADD-ON Performing Organization Address City/[facility] Code Phon e Number [facility] - [address] [place] [address] [facility] Sedimentation Rate (01/21/2012 10:28 AM CDT) Patholo gist Method Time Signature Sedimentation 6 0 - 29 [facility] Rate, B MM/1 H [facility] Specimen Anatomical Collection Method Collection Time Receive d Time (Source) Location / / Volume Laterality 01/21/2012 10:28 01/21/2012 AM CDT 10:28 AM CDT Faustina Dee M.D. LAB BLOOD ADD-ON Performing Organization Address City/State/ZIP Code Phon e Number [facility] - [address] [address] [facility] AST (Aspartate Aminotransferase) (01/21/2012 10:28 AM CDT) P athologist Signature AST, Total, S 21 8 - 43 U/L [facility] Specimen Anatomical Collection Method Collection Time Receive d Time (Source) Location / / Volume Laterality 01/21/2012 10:28 01/21/2012 AM CDT 10:28 AM CDT Faustina Dee M.D. LAB BLOOD ADD-ON Performing Organization Address City/State/ZIP Code Phon e Number [facility] - [address] [place] [address] [facility] Bilirubin, Total (01/21/2012 10:28 AM CDT) P athologist Signature Bilirubin, 0.5 0.1 - 1.0 [facility] Total, S MG/DL [facility] Specimen Anatomical Collection Method Collection Time Receive d Time (Source) Location / / Volume Laterality 01/21/2012 10:28 01/21/2012 AM CDT 10:28 AM CDT Faustina Dee M.D. LAB BLOOD ADD-ON Performing Organization Address City/State/ZIP Code Phon e Number [facility] - [address] documented in this encounter Visit Diagnoses Not on filedocumented in this encounter
--- OUTSIDE RECORDS SUMMARY | 2022-03-07 20:15 | XMS_ITS | Encounter Summary ---
:1995 Author Organization [facility] [place] [address] Care Team Providers Name Role Phone Jake Villegas M.D. Primary Care Provider Encounter Details Date Type Department Care Team Description 08/24/2014 Historical Ophthalmology [facility] Stephen Jimenez Jr., M.D. 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 PCP - General 06/14/[address] [place], [place] [address]ANASTASIA Proctor [phone] documented as of this encounter
--- OUTSIDE RECORDS SUMMARY | 2022-03-07 20:15 | XMS_ITS | Encounter Summary ---
:1995 Author Organization [facility] [place] [address] Care Team Providers Name Role Phone Unavailable Primary Care Provider Unavailable Encounter Details Date Type Department Care Team Description 12/22/2011 Hospital Encounter HX [facility] Zaynab Peterson M.D. [address] [place], [place] [phone] (Wo rk) Social History Tobacco Use Types Packs/Day Years Used Date Smoking Tobacco: Never Assessed Sex Assigned at Date Recorded Female 07/27/2019 2:28 PM CDT documented as of this encounter Plan of Treatment Not on filedocumented as of this encounter Visit Diagnoses Not on filedocumented in this encounter
--- OUTSIDE RECORDS SUMMARY | 2022-03-07 20:15 | XMS_ITS | Encounter Summary ---
:1995 Author Organization [facility] [place] [address] Care Team Providers Name Role Phone Unavailable Primary Care Provider Unavailable Encounter Details Date Type Department Care Team Description 08/24/2014 Hospital Encounter [facility] Stephen Figueroa Jr., M.D. [address] [place], [place] [phone] (Wo rk) Social History [...] Figueroa M.D. - 08/24/2014 8:40 AM CDT [id number] The documentation for this visit is available in Synthesis IMPRESSION/REPORT/PLAN A) Myopia, unchanged P) glasses at night only if desired. RTO 1-2 year Stephen Figueroa M.D./sissy Electronically Signed By: STEPHEN FIGUEROA MD On: 08/30/2014 09:01 AM Source: [facility] MHSDOLBEYNONRADSYS Document Id: [id number] documented in this encounter Miscellaneous Notes Miscellaneous - Stephen Figueroa M.D. - 08/24/2014 9:20 AM CDT Ambulatory Patient Summary [address] [id number] Visit Information Name: ADEBAYO ESQUEDAZACORNELL PACHECO [facility] Number: [id number] Current Date: 08/24/2014 09:20:55 Physicians [...] 02/15/2011 06/02/11 fructose / per [facility] Allergic reaction to drug, not elsewhere classified Active 06/03/2011 06/03/11 amoxicillin Your Upcoming Appointments Date Time Location Provider No Appointments found Attention: Contact your local Clinic if further appointment detail needed. Your Goals/Additional instructions: [facility]OWER[facility] Document Id: [id number] Miscellaneous - Stephen Figueroa M.D. - 08/24/2014 9:20 AM CDT Ambulatory Discharge Medication List [address] [id number] Visit Information Name: LILLYALEJANDRINACHANDRIKACORNELL PACHECO [facility] Number: [id number] Visit Date: 08/24/2014 09:20:54 Attending [...] MD Signed On:24-AUG-2014 09:20:50 Additional Information: Source: [facility] [employer]CHART Document Id: [id number] documented in this encounter Plan of Treatment Not on filedocumented as of this encounter Visit Diagnoses Not on filedocumented in this encounter
--- OUTSIDE RECORDS SUMMARY | 2022-03-07 20:15 | XMS_ITS | Encounter Summary ---
:1995 Author Organization [facility] [place] [address] Care Team Providers Name Role Phone Unavailable Primary Care Provider Unavailable Encounter Details Date Type Department Care Team Description 04/22/2012 Hospital Encounter [facility] Stephen Sarabia Jr., M.D. [address] [place], [place] [phone] (Wo rk) Social History Tobacco Use Types Packs/Day Years Used Date Smoking Tobacco: Never Assessed Sex Assigned at Date Recorded Female 07/27/2019 2:28 PM CDT documented as of this encounter Progress Notes Delicia Treviño, C.O.T. - 04/22/2012 8:12 AM CST [facility] Exam [facility] Exam Entered On: 04/22/2012 8:19 ELECTROTYPE FINISHER Performed On: 04/22/2012 8:12 ELECTROTYPE FINISHER by DELICIA TREVIÑO Chief Complaint and History Pain Symptoms : No Smoking Status : Never smoker Comment : Pt here for complete eye exam Some trouble with night vision Family History Reviewed : 04/22/2012 ELECTROTYPE FINISHER DELICIA TREVIÑO - 04/22/2012 8:12 ELECTROTYPE FINISHER Optometry Exam Familty History Grid Cancer : Sibling Diabetes : Grandparents DELICIA TREVIÑO - 04/22/2012 8:12 ELECTROTYPE FINISHER Vision Testing Right Eye Vision Testing : Without correction, 20/20, -1 Left Eye Vision Testing : Without correction, 20/20, -1 Both Eyes Vision Testing : Without correction, 20/20 DELICIA TREVIÑO - 04/22/2012 8:12 ELECTROTYPE FINISHER Refraction Right Eye Manifest Grid Date : 04/22/2012 ELECTROTYPE FINISHER Performed by : Tech Sphere : 0 Visual Acuity Distance : 20/20 DELICIA TREVIÑO Cleve - 04/22/2012 8:12 ELECTROTYPE FINISHER Left Eye Manifest Grid Date : 04/22/2012 ELECTROTYPE FINISHER Performed by : Tech Sphere : 0 Visual Acuity Distance : 20/20 DELICIA TREVIÑO Cleve - 04/22/2012 8:12 ELECTROTYPE FINISHER Ocular Testing EOMS : Normal Pupils : PERRLA Cover Test : Normal Comment : méndez full DELICIA TREVIÑO - 04/22/2012 8:12 ELECTROTYPE FINISHER Intraoccular Pressures Intraoccular Pressures Grid Date : 04/22/2012 ELECTROTYPE FINISHER 04/22/2012 ELECTROTYPE FINISHER Eye : RE LE Applanation : 15 15 Eye Drops : Fluress Fluress MIGUEDELICIA BLANCAS - 04/22/2012 8:12 ELECTROTYPE FINISHER MIGUEDELICIA BLANCAS - 04/22/2012 8:12 ELECTROTYPE FINISHER Eye Drops Exam Phenylephrine 2.5% Eye Drops Eye : Both eyes Phenylephrine 2.5% Eye Drops Amount : One drop Phenylephrine 2.5% Eye Drops Time : 8:19 ELECTROTYPE FINISHER Tropicamide 1% Eye Drops Eye : Both eyes Tropicamide 1% Eye Drops Amount : One drop Tropicamide 1% Eye Drops Time : 8:19 ELECTROTYPE FINISHER MONICADELICIA - 04/22/2012 8:12 ELECTROTYPE FINISHER Ocular Health Ocular Health Ext Rt Eye Grid Ext Rt Eye - Lids/Lashes : Normal Ext Rt Eye - Conjunctiva : Normal Ext Rt Eye - Cornea : Normal Ext Rt Eye - A/C : Normal Ext Rt Eye - Iris : Normal Ext Rt Eye - Lens : Normal STEPHEN FIGUEROA MD - 04/22/2012 8:56 ELECTROTYPE FINISHER Ocular Health Ext Lt Eye Grid Ext Lt Eye - Lids/Lashes : Normal Ext Lt Eye - Conjunctiva : Normal Ext Lt Eye - Cornea : Normal Ext Lt Eye - A/C : Normal Ext Lt Eye - Iris : Normal Ext Lt Eye - Lens : Normal STEPHEN FIGUEROA MD - 04/22/2012 8:56 ELECTROTYPE FINISHER Ocular Health Int Rt Eye Grid Int [...] Normal STEPHEN FIGUEROA MD - 04/22/2012 8:56 ELECTROTYPE FINISHER Ocular Health Int Lt Eye Grid Int [...] Normal STEPHEN FIGUEROA MD - 04/22/2012 8:56 ELECTROTYPE FINISHER Assessment Findings : Myopia, Other: Very mild (-0.12) myopia, no need for glasses but explains sx. Plan : Return for complete exam in one year or PRN STEPHEN FIGUEROA MD - 04/22/2012 8:56 ELECTROTYPE FINISHER Source: [facility] Document Id: [id number] TROTYPE FINISHER documented in this encounter Miscellaneous Notes Miscellaneous - Stephen Figueroa M.D. - 04/22/2012 9:01 AM CST Ambulatory Patient Summary [address] [id number] Visit Information Name: CHANDRIKA ESQUEDA [facility] Number: [id number] Current Date: 04/22/2012 09:01:53 Physicians [...] 02/15/2011 06/02/11 fructose / per [facility] Allergic reaction to drug, not elsewhere classified Active 06/03/2011 06/03/11 amoxicillin Your Upcoming Appointments Date Time Location Reason Provider No Appointments found Your Goals/Additional instructions: Source: [facility] Document Id: [id number] TROTYPE FINISHER Miscellaneous - Stephen Figueroa M.D. - 04/22/2012 9:01 AM CST Ambulatory Depart Summary [address] [id number] Visit Information Name: LILLYRITESH NevarezISABEL PACHECO [facility] Number: [id number] Visit Date: 04/22/2012 09:01:53 Attending [...] your provider for clarification. Additional Information: [facility] Document Id: [id number] TROTYPE FINISHER documented in this encounter Plan of Treatment Not on filedocumented as of this encounter Visit Diagnoses Not on filedocumented in this encounter
--- OUTSIDE RECORDS SUMMARY | 2022-03-07 20:15 | XMS_ITS | Encounter Summary ---
:1995 Author Organization [facility] [place] [address] Care Team Providers Name Role Phone Unavailable Primary Care Provider Unavailable Encounter Details Date Type Department Care Team Description 06/20/[address] [facility] Zaynab Barr i, M.D. [address] [place] [phone] (Wo rk) Social History Tobacco Use Types Packs/Day Years Used Date Smoking Tobacco: Never Assessed Sex Assigned at Date Recorded Female 07/27/2019 2:28 PM CDT documented as of this encounter Last Filed Vital Signs Vital Sign Reading Time Taken Comments Blood Pressure 98/58 06/20/2014 10:26 AM HABILITATION ASSISTANT Pulse 76 06/20/2014 10:26 AM HABILITATION ASSISTANT Temperature - - Respiratory Rate 16 06/20/2014 10:26 AM HABILITATION ASSISTANT Oxygen Saturation - - Inhaled Oxygen Concentration - - Weight 68 kg (149 lb 14.6 oz) 06/20/2014 10:26 AM HABILITATION ASSISTANT Height 173 cm (5' 8.11) 06/20/2014 10:26 AM HABILITATION ASSISTANT Body Mass Index 22.72 06/20/2014 10:26 AM HABILITATION ASSISTANT documented in this encounter Progress Notes Zaynab Skelton M.D. - 06/20/2014 10:14 AM CST [id number] CHIEF COMPLAINT/ REASON FOR VISIT Ear pain [...] their behalf by Dianne Penaloza, a trained medical technologist blood bank. The creation of this record is based on the scribe's personal observations and the provider's statements to them. This document has been chalo cked and approved by the attending provider. Zaynab Goodwin M.D./mery Electronically Signed By: ZAYNAB SKELTON MD On: 07/07/2014 08:39 AM [facility] Document Id: [id number] LITATION ASSISTANT documented in this encounter Miscellaneous Notes Miscellaneous - Zaynab Skelton M.D. - 06/20/2014 5:10 PM HABILITATION ASSISTANT Ambulatory Patient Summary [place] [id number] [facility] ANASTASIA [place] [id number] Visit Information Name: CHANDRIKA ESQUEDA [facility] Number: [id number] Current Date: 06/20/2014 17:10:09 Physicians Attending Provider: ZAYNAB SKELTON MD Primary Care Provider: ZAYNAB SKELTON MD LLILYADEBAYOCHANDRIKALUKE PACHECO has been given the following list [...] 1 david, Topical, two times a day [facility] norgestimate-ethinyl estradiol (Tri-Sprintec oral tablet) 1 Tablet(s), Oral, once a day ondansetron (ondansetron 4 mg oral tablet) 1 Tablet(s), Oral, three times a day sulfamethoxazole-trimethoprim (Bactrim DS 800 mg-160 mg oral tablet) 1 Tablet(s), Oral, two times a day x 10 day(s) New Routed to [facility] [address] [facility] ANASTASIA [place] [id number] Stop Taking the Following Medications: Medication list [...] appointment detail needed. Your Goals/Additional instructions: Source: [facility] POWERCHART Document Id: [id number] LITATION ASSISTANT Miscellaneous - Zaynab Skelton M.D. - 06/20/2014 5:10 PM HABILITATION ASSISTANT Ambulatory Discharge Medication List [address] [id number] Visit Information Name: CHANDRIKA ESQUEDA [facility] Number: [id number] Visit Date: 06/20/2014 17:10:07 Attending [...] day x 10 day(s) New Routed to [place] [address] [place], [place] [phone] Stop Taking the Following Medications: Medication list [...] MD Signed On:20-JUN-2014 17:10:04 Additional Information: Source: [facility] POWERCHART Document Id: [id number] LITATION ASSISTANT Miscellaneous - Conversion, Historical Provider Ser - 06/20/2014 10:26 AM HABILITATION ASSISTANT Adult Feed Handler Intake/History Adult Feed Handler Intake/History Entered On: 06/20/2014 10:29 HABILITATION ASSISTANT Performed On: 06/20/2014 10:26 HABILITATION ASSISTANT by LOIS CASAS LPN Intake Chief [...] kg/m2 LOIS CASAS LPN - 06/20/2014 10:26 HABILITATION ASSISTANT General Info Information Given By : Patient Languages : Libyan Is Patient Female and 13-50 no hysterectomy : Yes Status : Patient denies Are you ? : No LOIS CASAS [facility] - 06/20/2014 10:26 HABILITATION ASSISTANT Subjective Pain Symptoms : Yes LOIS CASAS [facility] - 06/20/2014 10:26 HABILITATION ASSISTANT Pain Scale Pain Scale Verbal 0-10 : Open LOIS CASAS [facility] - 06/20/2014 10:26 HABILITATION ASSISTANT Pain Pain Assessment Grid Pain 1 Location : Ear LOIS CASAS [facility] - 06/20/2014 10:26 HABILITATION ASSISTANT Dependent Habits Tobacco Use/Currently Using : No Exposure to Tobacco Smoke : Other: Never Smoking Status : Never smoker LOIS CASAS [facility] - 06/20/2014 10:26 HABILITATION ASSISTANT Tobacco Use Grid Last Use : never LOIS CASAS [facility] - 06/20/2014 10:26 HABILITATION ASSISTANT Caffeine Use Grid Caffeine Use : Current Type : Chocolate, Soft drinks Frequency : Occasionally LOIS CASAS [facility] - 06/20/2014 10:26 HABILITATION ASSISTANT Recreational Drug Use Grid Drug Use : None LOIS CASAS [facility] - 06/20/2014 10:26 HABILITATION ASSISTANT ID Screen Travel Within Last 21 Days : No LOIS CASAS [facility] - 06/20/2014 10:26 HABILITATION ASSISTANT [facility] POWERCHART Document Id: [id number] HABILITATION ASSISTANT!47 documented in this encounter Plan of Treatment Not on filedocumented as of this encounter Visit Diagnoses Not on filedocumented in this encounter
--- OUTSIDE RECORDS SUMMARY | 2022-03-07 20:15 | XMS_ITS | Encounter Summary ---
:[address] [facility] [place] [address] Care Team Providers Name Role Phone Unavailable [...]
--- OUTSIDE RECORDS SUMMARY | 2022-03-07 20:15 | XMS_ITS | Encounter Summary ---
:1995 Author Organization [facility] [place] [address] Care Team Providers Name Role Phone Unavailable Primary Care Provider Unavailable Encounter Details Date Type Department Care Team Description 05/09/2014 Hospital En[facility] Margarita Barr i, M.D. [address] [place] [phone] (Wo rk) Social History Tobacco Use Types Packs/Day Years Used Date Smoking Tobacco: Never Assessed Sex Assigned at Date Recorded Female 07/27/2019 2:28 PM CDT documented as of this encounter Last Filed Vital Signs Vital Sign Reading Time Taken Comments Blood Pressure 102/60 05/09/2014 9:43 AM WARD ASSISTANT Pulse 72 05/09/2014 9:43 AM WARD ASSISTANT Temperature - - Respiratory Rate 16 05/09/2014 9:43 AM WARD ASSISTANT Oxygen Saturation - - Inhaled Oxygen Concentration - - Weight 68 kg (149 lb 14.6 oz) 05/09/2014 9:43 AM WARD ASSISTANT Height 173 cm (5' 8.11) 05/09/2014 9:43 AM WARD ASSISTANT Body Mass Index 22.72 05/09/2014 9:43 AM WARD ASSISTANT documented in this encounter Progress Notes Margarita Skelton M.D. - 05/09/2014 9:23 AM CST [id number] CHIEF COMPLAINT/ REASON FOR VISIT Medication refill [...] behalf by Christie Johnson, a trained medical technologist. The creation of this record is basedon the scribe's personal observations and the provider's statements to them. This document has been c hecked and approved by the attending provider. Margarita Morrow M.D./narinder Electronically Signed By: MARGARITA SKELTON MD On: 06/18/2014 09:07 PM Source: [facility] MHSDOLBEYNONRADSYS Document Id: [id number] ASSISTANT documented in this encounter Miscellaneous Notes Miscellaneous - Margarita Skelton M.D. - 05/09/2014 8:34 PM WARD ASSISTANT Ambulatory Patient Summary [address] [id number] Visit Information Name: CHANDRIKA ESQUEDA [facility] Number: [id number] Current Date: 05/09/2014 20:34:56 Physicians [...] Malabsorption Active 02/15/2011 06/02/11 fructose / per [facility] Allergic reaction to drug, not elsewhere classified Active 06/03/2011 06/03/11 amoxicillin Your Upcoming Appointments Date Time Location Provider No Appointments found Attention: Contact your local Clinic if further appointment detail needed. Your Goals/Additional instructions: Source: [facility] POWERCHART Document Id: [id number] ASSISTANT Miscellaneous - Margarita Skelton M.D. - 05/09/2014 8:34 PM WARD ASSISTANT Ambulatory Discharge Medication List [address] [id number] Visit Information Name: CHANDRIKA ESQUEDA [facility] Number: [id number] Visit Date: 05/09/2014 20:34:55 Attending [...] MD Signed On:09-MAY-2014 20:34:40 Additional Information: Source: [facility] POWERCHART Document Id: [id number] ASSISTANT Miscellaneous - Conversion, Historical Provider Ser - 05/09/2014 9:43 AM WARD ASSISTANT Adult Financial Service Representative Intake/History Adult Financial Service Representative Intake/History Entered On: 05/09/2014 9:44 WARD ASSISTANT Performed On: 05/09/2014 9:43 WARD ASSISTANT by LOIS CASAS LPN Intake LMP Date : 04/11/14 LOIS CASAS LPN - 05/09/2014 9:45 WARD ASSISTANT Chief Complaint : control refill Temperature Core [...] kg/m2 LOIS CASAS LPN - 05/09/2014 9:43 WARD ASSISTANT General Info Information Given By : Patient Languages : Slovak Is Patient Female and 13-50 no hysterectomy : Yes Status : Patient denies Are you ? : No LOIS CASAS LPN - 05/09/2014 9:43 WARD ASSISTANT Subjective Pain Symptoms : No LOIS CASAS LPN - 05/09/2014 9:43 WARD ASSISTANT Dependent Habits Tobacco Use/Currently Using : No Exposure to Tobacco Smoke : Other: Never Smoking Status : Never smoker LOIS CASAS [facility] - 05/09/2014 9:43 WARD ASSISTANT Tobacco Use Grid Last Use : never LOIS CASAS LOSS CONTROL ENGINEER - 05/09/2014 9:43 WARD ASSISTANT Caffeine Use Grid Caffeine Use : Current Type : Chocolate, Soft drinks Frequency : Occasionally LOIS CASAS DANE LOSS CONTROL ENGINEER - 05/09/2014 9:43 WARD ASSISTANT Recreational Drug Use Grid Drug Use : None LOIS CASAS DANE LOSS CONTROL ENGINEER - 05/09/2014 9:43 WARD ASSISTANT ID Screen Travel Within Last 21 Days : No LOIS CASAS DANE LOSS CONTROL ENGINEER - 05/09/2014 9:43 WARD ASSISTANT Source: [employer] Document Id: [id number] WARD ASSISTANT!3 Miscellaneous - Conversion, Historical Provider Ser - 05/09/2014 9:43 AM WARD ASSISTANT Health Assessment Health Assessment Entered On: 05/09/2014 9:45 WARD ASSISTANT Performed On: 05/09/2014 9:43 WARD ASSISTANT by LOIS CASAS LPN Health Assessment Complete Health Assessment Complete or Modified : Annual Health Assessment Annual Health Assessment Completed : Yes ANTONY ZEFERINO, LOIS CAROL LOSS CONTROL ENGINEER - 05/09/2014 9:43 WARD ASSISTANT Nutrition Nutrition Risk Factors by History Adult : None LOIS CASAS [facility] - 05/09/2014 9:43 WARD ASSISTANT Functional Current Daily Living Assistance : None ANTONY ZEFERINOLOIS DANE LOSS CONTROL ENGINEER - 05/09/2014 9:43 WARD ASSISTANT Dependent Habits Tobacco Use/Currently Using : No Exposure to Tobacco Smoke : Other: Never Smoking Status : Never smoker LOIS CASAS [facility] - 05/09/2014 9:43 WARD ASSISTANT Tobacco Use Grid Last Use : never LOIS CASAS [facility] - 05/09/2014 9:43 WARD ASSISTANT Caffeine Use Grid Caffeine Use : Current Type : Chocolate, Soft drinks Frequency : Occasionally ANTONY GILFREDY LOISDIDIER VELA LPN - 05/09/2014 9:43 WARD ASSISTANT Recreational Drug Use Grid Drug Use : None ANTONY ZEFERINO, LOIS CAROL LOSS CONTROL ENGINEER - 05/09/2014 9:43 WARD ASSISTANT Psychosocial Domestic Abuse Concerns : None Yazidism Preference : Unknown LOIS CASAS LOSS CONTROL ENGINEER - 05/09/2014 9:43 WARD ASSISTANT Advance Directive Advanced Directives : No Advance Directive Additional Information : No LOIS CASAS LOSS CONTROL ENGINEER - 05/09/2014 9:43 WARD ASSISTANT Educ Needs Learning Style Preference Adult Grid Patient : Printed materials Family : Printed materials LOIS CASAS LOSS CONTROL ENGINEER - 05/09/2014 9:43 WARD ASSISTANT Source: [facility] POWERCHART Document Id: [id number] WARD ASSISTANT!33 documented in this encounter Plan of Treatment Not on filedocumented as of this encounter Visit Diagnoses Not on filedocumented in this encounter
--- OUTSIDE RECORDS SUMMARY | 2022-03-07 20:15 | XMS_ITS | Encounter Summary ---
:[address] [facility] [place] [address] Care Team Providers Name Role Phone Unavailable Primary Care Provider Unavailable Encounter Details Date Type Department Care Team Description 10/04/2013 Hospital Encounter HX [facility] FBHB FAMILYPRA Margarita Barr i, M.D. [address] [place] [phone] (Wo rk) Social History Tobacco Use Types [...] MORROW MD On: 10/24/2013 10:57 PM Source: [facility] MHSDOLBEYNONRADSYS Document Id: [id number] documented in this encounter Miscellaneous Notes Miscellaneous - Angela Strange R.N. - 05/08/2014 5:09 PM CST BCP... From: ANGELA STRANGE ([facility] Medication Refill) To: MARGARITA MORROW MD; Sent: 05/08/2014 17:09:52 SHORTHAND TEACHER Subject: BCP... Caller is: ( ) Patient [...] Call to Pharmacy ( ) Patient will lease picker Script ( ) Mail Rx to Patient Source: [facility] POWERCHART Document Id: [id number] Telephone Encounter - Conversion, Historical Provider Ser [...] pharmacy and they will transfer it to [place]. Addendum by MARGARITA MORROW MD on 03 [...] Subject: FW: *Phone Message From: LEONARDO VALDERRAMA ([facility] Nurse) To: STEPHANI Morrow Nurse; Sent: 03/03/2014 [...] the new meds to Chandrika up in [place] this weekend r: Oralia wants call back as soon as possible at [phone] Advice/Action: Source used: ( ) Verbalizes understanding [...] back cell phone number ( ) Source: [facility] POWERCHART Document Id: [id number] Miscellaneous - Angela Strange, RJoshuaN. - 02/22/2014 11:53 AM CDT BCP Document Contains Addenda Addendum by MARGARITA MORROW MD on 22 February 2014 12:37:45 CDT From: MARGARITA MORROW MD Sent: 02/22/2014 12:37:45 CDT Subject: RE:BCP Approved Order:norgestimate-ethinyl estradiol (Tri-Sprintec oral tablet) 1 tab(s) PO Daily Qty: 84 tab(s) Refills: 0 Substitutions Allowed Route To Pharmacy - [facility] [id number] Signed by MARGARITA MORROW MD 02/22/2014 12:13:07 From: ANGELA STRANGE To: MARGARITA MORROW MD; Sent: 02/22/2014 11:53:30 CDT Subject: BCP On hold pending signature Order:norgestimate-ethinyl estradiol (Tri-Sprintec oral tablet) 1 tab(s) PO Daily Qty: 84 tab(s) Refills: 0 Substitutions Allowed Route To Pharmacy - [facility] [id number] Caller is: ( ) Patient ( ) [...] Call to Pharmacy ( ) Patient will lease picker Script ( ) Mail Rxto Patient Source: [facility] POWERCHART Document Id: [id number] Miscellaneous - Margarita Skelton M.D. - 10/04/2013 10:56 PM CDT Ambulatory Patient Summary [address] [id number] Visit Information Name: CHANDRIKA ESQUEDA [facility] Number: [id number] Current Date: 10/04/2013 22:56:12 [...] Active 02/15/2011 06/02/11 fructose / per [facility] Allergic reaction to drug, not elsewhere classified Active 06/03/2011 06/03/11 amoxicillin Your Upcoming Appointments Date Time Location Reason Provider No Appointments found Attention: Contact your local Clinic if further appointment detail needed. Your Goals/Additional instructions: Source: [facility] POWERCHART Document Id: [id number] Miscellaneous - Margarita Skelton M.D. - 10/04/2013 10:56 PM CDT Ambulatory Discharge Medication List [address] [id number] Visit Information Name: CHANDRIKA ESQUEDA [facility] Number: [id number] Visit Date: 10/04/2013 22:56:10 [...] MD Signed On:04-OCT-2013 22:56:02 Additional Information: Source: [facility] POWERCHART Document Id: [id number] Miscellaneous - Conversion, Historical Provider Ser - 10/04/2013 2:09 PM CDT Adult Veterinary Dentist Intake/History Adult Veterinary Dentist Intake/History Entered On: 10/04/2013 14:11 CDT Performed [...] Mass Index : 21.8 kg/m2 LOIS CASAS [facility] 10/04/2013 14:09 CDT General Info Information Given By : Patient Languages : Swedish LOIS CASAS [facility] - 10/04/2013 14:09 CDT Subjective Pain Symptoms : Yes LOIS CASAS [facility] 10/04/2013 14:09 CDT Pain Pain Assessment Grid Pain 1 Location : Throat LOIS CASAS [facility] - 10/04/2013 14:09 CDT Dependent Habits Tobacco Use/Currently Using : No Exposure to Tobacco Smoke : Other: Never Smoking Status : Never smoker LOIS CASAS [facility] - 10/04/2013 14:09 CDT Tobacco Use Grid Last Use : never LOIS CASAS [facility] 10/04/2013 14:09 CDT Caffeine Use Grid Caffeine Use : Current Type : Chocolate, Soft drinks Frequency : Occasionally LOIS CASAS [facility] - 10/04/2013 14:09 CDT Recreational Drug Use Grid Drug Use : None LOIS CASAS [facility] 10/04/2013 14:09 CDT [facility] Document Id: [id number] CDT!40 documented in this encounter Plan of Treatment Not on filedocumented as of this encounter Visit Diagnoses Not on filedocumented in this encounter
--- OUTSIDE RECORDS SUMMARY | 2022-03-07 20:15 | XMS_ITS | Encounter Summary ---
:1995 Author Organization [facility] [place] [address] Care Team Providers Name Role Phone Unavailable Primary Care Provider Unavailable Encounter Details Date Type Department Care Team Description 04/13/2012 Hospital Encounter HX [facility] FBHB FAMILYPRA Kaitlynn Gonzales M.D. Social History Tobacco Use Types Packs/Day Years Used Date Smoking Tobacco: Never Assessed Sex Assigned at Date Recorded Female 07/27/2019 2:28 PM CDT documented as of this encounter Last Filed Vital Signs Vital Sign Reading Time Taken Comments Blood Pressure 110/58 04/13/2012 3:51 PM OPERATIONS OFFICER Pulse 72 04/13/2012 3:51 PM OPERATIONS OFFICER Temperature - - Respiratory Rate 16 04/13/2012 3:51 PM OPERATIONS OFFICER Oxygen Saturation - - Inhaled Oxygen Concentration - - Weight 60 kg (132 lb 4.4 oz) 04/13/2012 3:51 PM OPERATIONS OFFICER Height 173 cm (5' 8.11) 04/13/2012 3:51 PM OPERATIONS OFFICER Body Mass Index 20.05 04/13/2012 3:51 PM OPERATIONS OFFICER Body Mass Index Percentile 33.08 % 04/13/2012 3:51 PM CS T Growth Chart: CDC (Girls, 2-20 Years) documented in this encounter Progress Notes Robert Gonzales M.D. - 04/13/2012 3:46 PM CST [id number] CHIEF COMPLAINT/REASON FOR VISIT Been sick for [...] GONZALES MD On: 04/14/2012 12:20 PM Source: [facility] MHSDOLBEYNONRADSYS Document Id: [id number] ATIONS OFFICER documented in this encounter Miscellaneous Notes Miscellaneous - Robert Gonzales M.D. - 04/13/2012 4:54 PM CST Ambulatory Patient Summary [address] [address] Visit Information Name: CHANDRIKA ESQUEDA 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 Allergic reaction to drug, not elsewhere classified Active 06/03/2011 06/03/11 amoxicillin Your Upcoming Appointments Date Time Location Reason Provider 04/22/2012 08:00 [facility] Ophth check up Barbara RAMIREZ, Stephen Chamberlain Your Goals/Additional instructions: Source: [facility] POWERCHART Document Id: [id number] ATIONS OFFICER Miscellaneous - Robert Gonzales M.D. - 04/13/2012 4:54 PM CST Ambulatory Depart Summary [address] [address] Visit Information Name: CHANDRIKA ESQUEDA [facility] Number: [id number] Visit Date: 04/13/2012 16:54:43 Attending [...] provider for clarification. Additional Information: Source: [facility] POWERCHART Document Id: [id number] ATIONS OFFICER Miscellaneous - Conversion, Historical Provider Ser - 04/13/2012 3:51 PM OPERATIONS OFFICER Adult Manager Of Human Resources Intake/History Adult Manager Of Human Resources Intake/History Entered On: 04/13/2012 15:54 OPERATIONS OFFICER Performed On: 04/13/2012 15:51 OPERATIONS OFFICER by RAMILA VIVAR Intake Chief Complaint : [...] 20.05kg/m2 GHAZALA, RAMILA Cleve - 04/13/2012 15:51 OPERATIONS OFFICER Subjective Pain Symptoms : Yes RAMILA VIVAR - 04/13/2012 15:51 OPERATIONS OFFICER Pain Pain Assessment Grid Pain 1 Location : Throat RAMILA VIVAR - 04/13/2012 15:51 OPERATIONS OFFICER Dependent Habits Tobacco Use/Currently Using : No Exposure to Tobacco Smoke : Other: Never Smoking Status : Never smoker GHAZALA RAMILA Cleve - 04/13/2012 15:51 OPERATIONS OFFICER Tobacco Use Grid Last Use : never RAMILA VIVAR - 04/13/2012 15:51 OPERATIONS OFFICER Caffeine Use Grid Caffeine Use : Current Type : Chocolate, Soft drinks Frequency : Occasionally RAMILA VIVAR - 04/13/2012 15:51 OPERATIONS OFFICER Allergy Allergies (Active) amoxicillin Estimated Onset Date: <not entered> 06/03/2011 ; Reactions: rash ; Created By: PRICILA BEDOLLA CNP; Reaction Status: Active ; Category: Drug ; Substance: amoxicillin ; Type: Allergy ;Updated By: PRICILA BEDOLLA CNP; Reviewed Date: 04/13/2012 15:50 OPERATIONS OFFICER Source: [facility] POWERCHART Document Id: [id number] documented in this encounter Plan of Treatment Not on filedocumented as of this encounter Procedures Procedure Name Priority Date/Time Associated Diagnosis Comme nts INFLUENZA A/B Routine 04/13/2012 4:37 PM Results for this OPERATIONS OFFICER procedure are i n the results section . documented in this encounter Results (ABNORMAL) Influenza A/B (04/13/2012 4:37 PM OPERATIONS OFFICER) [facility] Method Time Signature HXInfluenza A (POSITIVE [...] / Volume Laterality Nasal 04/13/2012 4:37 PM OPERATIONS OFFICER Robert Gonzales M.D. LAB MICROBIOLOGY - GENERAL O RDERABLES Performing Organization Address City/State/ZIP Code Phon e Number POWERCHART documented in this encounter Visit Diagnoses Not on filedocumented in this encounter
--- OUTSIDE RECORDS SUMMARY | 2022-03-07 20:15 | XMS_ITS | Encounter Summary ---
:1995 Author Organization [facility] [place] [address] Care Team Providers Name Role Phone Unavailable Primary Care Provider Unavailable Encounter Details Date Type Department Care Team Description 12/23/2011 Hospital Encounter HX [facility] FB [facility] Zaynab Peterson M.D. [address] [place], [place] [phone] (Wo rk) Social History [...] amparo, Campylobacter, or Aeromonas. Test Performed by: [facility] [place] [address] Software Test Technician: Ayad sow III, M.D. Historical Provider LAB HISTORICAL ORDERS Performing Organization Address [facility] Phon e Number POWERCHART C. difficile Toxin, F (12/23/2011 9:02 AM CDT) athologist Signature C. difficile Negative POWERCHART Toxin, F Specimen (Source) Anatomical Collection Method Collection Time Re ceived Time Location / / Volume Laterality 12/23/2011 9:02 AM CDT Narrative POWERCHART - 12/27/2011 7:40 AM CDT Laboratory developed test. Test Performed by: [facility] [place] [address] Software Test Technician: Ayad sow III, M.D. Alicja Olivares M.D. LAB MICROBIOLOGY - GENERAL O RDERABLES Performing Organization Address [facility] Phon e Number POWERCHART HX-C diff Srce (12/23/2011 9:02 AM CDT) athologist Signature HXC diff Stool POWERCHART Srce-Irvona Specimen (Source) Anatomical Collection Method Collection Time Re ceived Time Location / / Volume Laterality 12/23/2011 9:02 AM CDT Alicja Olivares M.D. LAB HISTORICAL ORDERS Performing Organization Address [facility] Phon e Number POWERCHART documented in this encounter Visit Diagnoses Not on filedocumented in this encounter
--- OUTSIDE RECORDS SUMMARY | 2022-03-07 20:15 | XMS_ITS | Encounter Summary ---
:1995 Author Organization [facility] Address [address] [place] [address] Care Team Providers Name Role Phone Unavailable Primary Care Provider Unavailable Encounter Details Date Type Department Care Team Description 06/30/2012 Hospital Encounter HX [facility] FB FAMILYPRA Margarita Barr i, M.D. [address] [place] [phone] (Wo rk) Social History Tobacco Use Types Packs/Day Years Used Date Smoking Tobacco: Never Assessed Sex Assigned at Date Recorded Female 07/27/2019 2:28 PM CDT documented as of this encounter Last Filed Vital Signs Vital Sign Reading Time Taken Comments Blood Pressure 92/58 06/30/2012 10:01 AM ICING MIXER Pulse 56 06/30/2012 10:01 AM ICING MIXER Temperature - - Respiratory Rate 16 06/30/2012 10:01 AM ICING MIXER Oxygen Saturation - - Inhaled Oxygen Concentration - - Weight 62 kg (136 lb 11 oz) 06/30/2012 10:01 AM ICING MIXER Height 171 cm (5' 7.32) 06/30/2012 10:01 AM ICING MIXER Body Mass Index 21.2 06/30/2012 10:01 AM ICING MIXER Body Mass Index Percentile 47.97 % 06/30/2012 10:[address] Growth Chart: CDC (Girls, 2-20 Years) documented in this encounter Progress Notes Margarita Skelton M.D. - 06/30/2012 9:53 AM CST [id number] CHIEF COMPLAINT/REASON FOR VISIT Not feeling well. [...] She and her teammates just won the [employer] game last night and plan to go to the [facility] on July 03. She hopes to feel [...] worsening symptoms. Margarita Morrow M.D./[facility] DOCID: [id number] Electronically Signed By: MARGARITA MORROW MD On: 07/01/2012 01:59 PM Source: [facility] MHSDOLBEYNONRADSYS Document Id: [id number] G MIXER documented in this encounter Miscellaneous Notes Miscellaneous - Margarita Skelton M.D. 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 - 06/30/2012 10:30 PM ICING MIXER Ambulatory Depart Summary [address] [place] [address] Visit Information Name: CHANDRIKA ESQUEDA [facility] Number: [id number] Visit Date: 06/30/2012 22:30:49 Attending [...] [facility] POWERCHART Document Id: [id number] G MIXER Miscellaneous - Conversion, Historical Provider Ser - 06/30/2012 10:01 AM ICING MIXER Adult Operation Specialist Intake/History Adult Operation Specialist Intake/History Entered On: 06/30/2012 10:04 ICING MIXER Performed On: 06/30/2012 10:01 ICING MIXER by LOIS CASAS LPN Intake Chief Complaint [...] 21.20kg/m2 LOIS CASAS LPN - 06/30/2012 10:01 ICING MIXER General Info Information Given By : Patient Languages : Kazakh LOIS CASAS LPN - 06/30/2012 10:01 ICING MIXER Subjective Pain Symptoms : Yes LOIS CASAS [facility] - 06/30/2012 10:01 ICING MIXER Pain Pain Assessment Grid Pain 1 Location : Ear Laterality : Bilateral LOIS CASAS [facility] - 06/30/2012 10:01 ICING MIXER Dependent Habits Tobacco Use/Currently Using : No Exposure to Tobacco Smoke : Other: Never Smoking Status : Never smoker LOIS CASAS [facility] - 06/30/2012 10:01 ICING MIXER Tobacco Use Grid Last Use : never LOIS CASAS [facility] - 06/30/2012 10:01 ICING MIXER Caffeine Use Grid Caffeine Use : Current Type : Chocolate, Soft drinks Frequency : Occasionally LO[facility] CASAS [facility] - 06/30/2012 10:01 ICING MIXER Allergy Allergies (Active) amoxicillin Estimated Onset Date: <not entered> 06/03/2011 ; Reactions: rash ; Created By: PRICILA BEDOLLA CNP; Reaction Status: Active ; Category: Drug ; Substance: amoxicillin ; Type: Allergy ;Updated By: PRICILA BEDOLLA CNP; Reviewed Date: 06/30/2012 10:01 ICING MIXER Source: [facility] POWERCHART Document Id: [id number] documented in this encounter Plan of Treatment Not on filedocumented as of this encounter Visit Diagnoses Not on filedocumented in this encounter
--- OUTSIDE RECORDS SUMMARY | 2022-03-07 20:15 | XMS_ITS | Encounter Summary ---
:[address] [facility] [address] Care Team Providers Name Role Phone Unavailable Primary Care Provider Unavailable Encounter Details Date Type Department Care Team Description 12/23/2011 Hospital Encounter HX [facility] Zaynab Peterson M.D. [address] [place], [place] [phone] (Wo rk) Social History Tobacco Use Types Packs/Day Years Used Date Smoking Tobacco: Never Assessed Sex Assigned at Date Recorded Female 07/27/2019 2:28 PM CDT documented as of this encounter Plan of Treatment Not on filedocumented as of this encounter Visit Diagnoses Not on filedocumented in this encounter
--- OUTSIDE RECORDS SUMMARY | 2022-03-07 20:16 | XMS_ITS | Encounter Summary ---
:1995 Author Organization [facility] [place] [address] Care Team Providers Name Role Phone Unavailable Primary Care Provider Unavailable Encounter Details Date Type Department Care Team Description 12/10/2009 Hospital Encounter HX [facility] FAMILYPRA Margarita Barr i, M.D. [address] [place] [phone] (Wo rk) Social History Tobacco Use Types Packs/Day Years Used Date Smoking Tobacco: Never Assessed Sex Assigned at Date Recorded Female 07/27/2019 2:28 PM CDT documented as of this encounter Progress Notes Margarita Skelton M.D. - 12/10/2009 12:00 AM CDT [id number] IMPRESSION/REPORT/PLAN 1. Age appropriate anticipatory guidance is [...] MORROW MD On 12/25/2009 09:19 AM Source: [facility] MHSDOLBEYNYANNICK Document Id: [id number] documented in this encounter Miscellaneous Notes Miscellaneous - Conversion, Historical Provider Ser - 12/10/2009 3:04 PM CDT Pediatric Butter Printer Intake/History Pediatric Butter Printer Intake/History Entered On: 12/10/2009 15:08 CDT Performed [...] RN; Reviewed Date: 12/07/2009 9:03 CDT [facility] Document Id: [id number] CDT!19 documented in this encounter Plan of Treatment Not on filedocumented as of this encounter Visit Diagnoses Not on filedocumented in this encounter
--- OUTSIDE RECORDS SUMMARY | 2022-03-07 20:16 | XMS_ITS | Encounter Summary ---
:1995 Author Organization [facility] [place] [address] Care Team Providers Name Role Phone Unavailable [...]
--- OUTSIDE RECORDS SUMMARY | 2022-03-07 20:16 | XMS_ITS | Encounter Summary ---
:1995 Author Organization [facility] [place] [place] [address] Care Team Providers Name Role Phone Unavailable Primary Care Provider Unavailable Encounter Details Date Type Department Care Team Description 11/25/[address] [facility] Michi Camacho M.D. [address] [place] [phone] (Wo rk) Social History Tobacco Use Types Packs/Day Years Used Date Smoking Tobacco: Never Assessed Sex Assigned at Date Recorded Female 07/27/2019 2:28 PM CDT documented as of this encounter Plan of Treatment Not on filedocumented as of this encounter Visit Diagnoses Not on filedocumented in this encounter
--- OUTSIDE RECORDS SUMMARY | 2022-03-07 20:16 | XMS_ITS | Encounter Summary ---
:1995 Author Organization [facility] [place] [address] Care Team Providers Name Role Phone Unavailable Primary Care Provider Unavailable Encounter Details Date Type Department Care Team Description 06/03/2011 Hospital Encounter HX [facility] LAB Jessy Starks A PRN, C.N.P. [address] [place], [place] [phone] (Wo rk) Social History Tobacco Use Types Packs/Day Years Used Date Smoking Tobacco: Never Assessed Sex Assigned at Date Recorded Female 07/27/2019 2:28 PM CDT documented as of this encounter Plan of Treatment Not on filedocumented as of this encounter Procedures Procedure Name Priority Date/Time Associated Comments Diagnosis POCT MONONUCLEOSIS Routine 06/03/2011 1:46 PM Res ults for this SCREEN PUMP ASSEMBLER procedure are i n the results section. documented in this encounter Results Mononucleosis Screen, POCT (06/03/2011 1:46 PM PUMP ASSEMBLER) [facility] Method Time Signature Infectious POWERCHART Keith Test, S HXFinal Negative POWERCHART HXFinal Reference: POWERCHART Negative Specimen (Source) Anatomical Collection Method Collection Time Re ceived Time Location / / Volume Laterality Blood 06/03/2011 1:46 PM PUMP ASSEMBLER Jessy Starks APRN, C.N.P. LAB POCT ORDERABLES-MANUAL Performing Organization Address City/State/ZIP Code Phon e Number POWERCHART documented in this encounter Visit Diagnoses Not on filedocumented in this encounter
--- OUTSIDE RECORDS SUMMARY | 2022-03-07 20:16 | XMS_ITS | Encounter Summary ---
:1995 Author Organization [facility] Address [address] [place] [address] Care Team Providers Name Role Phone Unavailable Primary Care Provider Unavailable Encounter Details Date Type Department Care Team Description 04/29/2010 Hospital Encounter [facility]X [facility] FAMILYPRA Fabi Kam M.D. [address] [place], [place] [address] (Wo rk) Social History Tobacco Use Types Packs/Day Years Used Date Smoking Tobacco: Never Assessed Sex Assigned at Date Recorded Female 07/27/2019 2:28 PM CDT documented as of this encounter Progress Notes Kylah Kam M.D. - 04/29/2010 12:00 AM CST [id number] IMPRESSION/REPORT/PLAN Viral syndrome. PLAN Recommend increasing supportive [...] KAM MD On 05/01/2010 11:05 AM Source: [facility] MHSDOLBEYNONRADSYS Document Id: [id number] RIAL PLANNER documented in this encounter Miscellaneous Notes Miscellaneous - Kylah Kam M.D. - 04/29/2010 4:41 PM CST [place] [address] Visit Information Name: CHANDRIKA ESQUEDA Current Date: 04/29/2010 16:41:21 Primary Care Provider: MARGARITA MORROW MD [phone] Your Medications Here is a list of [...] No Appointments found Your Goals/Additional instructions: Source: [facility] POWERCHART Document Id: [id number] Electronically signed by Conversion, [facility] Automotive Electrical Helper [id number] at 10/06/2016 5:53 AM CDT Miscellaneous - Kylah Kam M.D. - 04/29/2010 4:41 PM CST Ambulatory Depart Summary [address] [address] Visit Information Name: CHANDRIKA ESQUEDA Current Date: 04/29/2010 16:41:21 Primary Care Provider: MARGARITA MORROW MD [id number] CHANDRIKA ESQUEDA has been given the following list of medications: Your Medications It is important to take your medications as directed. Use a pill box or chart to help remind you to take your medications. Please let your doctor or nurse know if you have problems taking your medications. Medication/Strength Dose Route Frequency Indications/Special Instructions/Comments No Medications found Additional Information: Source: [facility]ITAL[facility]ov[facility] MedicalCHART Document Id: [id number] Electronically signed by Conversion, [facility] Automotive Electrical Helper [id number] at 10/06/2016 5:53 AM CDT Miscellaneous - Leandra Davenport L.P.N. - 04/29/2010 3:57 PM CST Pediatric Hr Shared Services Consultant Intake/History Pediatric Hr Shared Services Consultant Intake/History Entered On: 04/29/2010 15:58 MATERIAL PLANNER Performed On: 04/29/2010 15:57 MATERIAL PLANNER by LEANDRA DAVENPORT LPN Intake Chief Complaint: sore throat ear pain Temperature Core: 36.8C(Converted to: 98.2DegF) Peripheral Pulse Rate: 64/min Respiratory Rate: 16/min Systolic Blood Pressure: 94mmHg Diastolic Blood Pressure: 52mmHg NIBP Mean: 66mmHg BP Location: Left upper extremity Actual Weight: 63.300kg(Converted to: 139lb 9oz) Dosing Weight Clinic: 63.30kg LEANDRA DAVENPORT LPN - 04/29/2010 15:57 MATERIAL PLANNER Subjective Pain Symptoms: Yes LEANDRA DAVENPORT LPN - 04/29/2010 15:57 MATERIAL PLANNER Pain Pain Assessment Grid Pain 1 Pain 2 Location: Ear Throat Laterality: Bilateral LEANDRA DAVENPORT LPN - 04/29/2010 15:57 MATERIAL PLANNER LEANDRA DAVENPORT LPN - 04/29/2010 15:57 MATERIAL PLANNER Dependent Habits Tobacco Use/Currently Using: No LEANDRA DAVENPORT LPN - 04/29/2010 15:57 MATERIAL PLANNER Allergy Allergies (Active) NKA Estimated Onset Date: Unspecified ; Created By: LORE ALEGRIA RN; Reaction Status: Active; Category: Drug ; Substance: NKA ; Type: Allergy ; Updated By: LORE ALEGRIA RN; Reviewed Date: 04/29/2010 15:57 MATERIAL PLANNER Source: [facility] [employer] Document Id: [id number] MATERIAL PLANNER!23 RIAL PLANNER documented in this encounter Plan of Treatment Not on filedocumented as of this encounter Visit Diagnoses Not on filedocumented in this encounter
--- OUTSIDE RECORDS SUMMARY | 2022-03-07 20:16 | XMS_ITS | Encounter Summary ---
:1995 Author Organization [facility] [place] [address] Care Team Providers Name Role Phone Unavailable Primary Care Provider Unavailable Encounter Details Date Type Department Care Team Description 04/11/2011 Hospital Encounter HX [facility] FBHB FAMILYPRA Brandin Christian P.A.-C. [address] [place] [phone] (Wo rk) Social History Tobacco Use Types Packs/Day Years Used Date Smoking Tobacco: Never Assessed Sex Assigned at Date Recorded Female 07/27/2019 2:28 PM CDT documented as of this encounter Progress Notes Rupert Christian P.A.-C. - 04/11/2011 12:00 AM CST [id number] CHIEF COMPLAINT/ REASON FOR VISIT His abdominal [...] her labs that were done yesterday in [place] and other than the abnormal fructose absorption [...] contact Dr. Lagos who is a pediatric criminalist technician who saw her yesterday TLR/clf Signed [facility] Electronically Signed By: RUPERT CHRISTIAN PA-C On: 04/11/2011 03:31 PM Source: [facility] MHSDOLBEYNONRADSYS Document Id: [id number] ON OPERATOR Rupert Christian P.A.-C. - 04/11/2011 12:00 AM CST [id number] CHIEF COMPLAINT / REASON FOR VISIT I [...] an abnormal fructose absorption test yesterday at [place] and I spoke with Dr. Olivares, who is the pediatric criminalist technician who had seen her for this. She will be setting up a follow up for Chandrika to be seen again down in [place] for further evaluation and treatment of this problem. At this time I think Chandrika is continuing to improve and likely her symptoms today were from expelling the large amount of fructose from the test that she had done yesterday. Her mother was reassured with this and will have him follow up as scheduled in [place]. If there are any questions or problems or worsening of symptoms in the meantime they will let us know. TLR/kln Signed [facility] Electronically Signed By: RUPERT CHRISTIAN PA-C On: 04/14/2011 05:45 PM Source: [facility] MHSDOLBEYNONRADSYS Document Id: [id number] ON OPERATOR documented in this encounter Miscellaneous Notes Miscellaneous - Rupert Christian P.A.-C. - 04/11/2011 12:42 PM CST Ambulatory Patient Summary [address] [address] Visit Information Name: CHANDRIKA ESQUEDA Current Date: [...] Source: [facility] POWERCHART Document Id: [id number] ON OPERATOR Miscellaneous - Rupert Christian P.A.-C. - 04/11/2011 12:42 PM CST Ambulatory Depart Summary [address] [address] Visit Information Name: CHANDRIKA ESQUEDA Visit Date: [...] Instructions/Comments No Medications found Additional Information: Source: [facility] POWERCHART Document Id: [id number] ON OPERATOR Miscellaneous - Conversion, Historical Provider Ser - 04/11/2011 11:45 AM FUSION OPERATOR Pediatric Bindery Machine Setter/Set Up Operator Intake/History Pediatric Bindery Machine Setter/Set Up Operator Intake/History Entered On: 04/11/2011 11:48 FUSION OPERATOR Performed On: 04/11/2011 11:45 FUSION OPERATOR by CATA MALHOTRA Chief Complaint : [...] : 64.00kg CATA MALHOTRA - 04/11/2011 11:45 FUSION OPERATOR Subjective Pain Symptoms : Yes CATA MALHOTRA - 04/11/2011 11:45 FUSION OPERATOR Pain Pain Assessment Grid Pain 1 Location : Abdomen Laterality : Bilateral Intensity : 8 CATA MALHOTRA - 04/11/2011 11:45 FUSION OPERATOR Dependent Habits Tobacco Use/Currently Using : No Smoking Status : Never smoker CATA MALHOTRA - 04/11/2011 11:45 FUSION OPERATOR Allergy Allergies (Active) NKA Estimated Onset Date: Unspecified ; Created By: LORE ALEGRIA RN; Reaction Status: Active; Category: Drug ; Substance: NKA ; Type: Allergy ; Updated By: LORE ALEGRIA RN; Reviewed Date: 11/18/2010 13:30 CDT Source: [facility] The Consult[employer] ConsortiumCHART Document Id: [id number] FUSION OPERATOR!26 documented in this encounter Plan of Treatment Not on filedocumented as of this encounter Visit Diagnoses Not on filedocumented in this encounter
--- OUTSIDE RECORDS SUMMARY | 2022-03-07 20:16 | XMS_ITS | Encounter Summary ---
:1995 Author Organization [facility] [place] [address] Care Team Providers Name Role Phone Unavailable Primary Care Provider Unavailable Encounter Details Date Type Department Care Team Description 06/02/2011 Hospital Encounter [facility]X [facility] FAMILYPRA Natalie Bedolla APRN, C.N.P. [address] [place] [phone] (Wo rk) Social History Tobacco Use Types Packs/Day Years Used Date Smoking Tobacco: Never Assessed Sex Assigned at Date Recorded Female 07/27/2019 2:28 PM CDT documented as of this encounter Last Filed Vital Signs Vital Sign Reading Time Taken Comments Blood Pressure 90/60 06/02/2011 3:26 PM NEUROLOGY SPECIALIST Pulse 60 06/02/2011 3:26 PM NEUROLOGY SPECIALIST Temperature - - Respiratory Rate 16 06/02/2011 3:26 PM NEUROLOGY SPECIALIST Oxygen Saturation - - Inhaled Oxygen Concentration - - Weight 60.7 kg (133 lb 14.9 oz) 06/02/2011 3:26 PM NEUROLOGY SPECIALIST Height - - Body Mass Index - - documented in this encounter Progress Notes Pricila Bedolla, INES, C.N.P. - 06/02/2011 12:00 AM CST [id number] CHIEF COMPLAINT/ REASON FOR VISIT Sinus congestion [...] not improve SJM/clf Signed Pricila Bedolla, MSN, HISTORIOGRAPHY TEACHER, CDE Family Nurse Practitioner Electronically Signed By: PRICILA BEDOLLA CNP On: 06/03/2011 09:32 AM Source: [facility] MHSDOLBEYNONRADSYS Document Id: [id number] OLOGY SPECIALIST documented in this encounter Miscellaneous Notes Miscellaneous - Pricila Bedolla APRN, C.N.P. - 06/02/2011 3:47 PM CST Ambulatory Patient Summary [address] [address] Visit Information Name: CHANDRIKA ESQUEDA Current Date: [...] Comments Malabsorption Active 02/15/2011 fructose / per [facility] Your Recommendations We want to make sure [...] No Appointments found Your Goals/Additional instructions: Source: [employer] Document Id: [id number] OLOGY SPECIALIST Miscellaneous - Pricila Bedolla APRN, C.N.P. - 06/02/2011 3:47 PM CST Ambulatory Depart Summary [address] [address] Visit Information Name: CHANDRIKA ESQUEDA JUNIOR Current Date: 06/02/2011 15:47:18 Attending Provider: PRICILA BEDOLLA [facility] Primary Care Provider: MARGARITA MORROW MD CHANDRIKA [...] day for 10 Days Additional Information: Source: [employer] Document Id: [id number] OLOGY SPECIALIST Miscellaneous - Conversion, Historical Provider Ser - 06/02/2011 3:26 PM NEUROLOGY SPECIALIST Pediatric Marketing Writer Intake/History Pediatric Marketing Writer Intake/History Entered On: 06/02/2011 15:28 NEUROLOGY SPECIALIST Performed On: 06/02/2011 15:26 NEUROLOGY SPECIALIST by GEO CHAVIS Intake Chief Complaint : [...] Clinic : 60.75kg GEO CHAVIS 06/02/2011 15:26 NEUROLOGY SPECIALIST Subjective Pain Symptoms : Yes GEO CHAVIS 06/02/2011 15:26 NEUROLOGY SPECIALIST Pain Pain Assessment Grid Pain 1 Location : Generalized GEO CHAVIS 06/02/2011 15:26 NEUROLOGY SPECIALIST Dependent Habits Tobacco Use/Currently Using : No Exposure to Tobacco Smoke : Other: Never Smoking Status : Never smoker GEO CHAVIS 06/02/2011 15:26 NEUROLOGY SPECIALIST Allergy Allergies (Active) NKA Estimated Onset Date: Unspecified ; Created By: LORE ALEGRIA RN; Reaction Status: Active; Category: Drug ; Substance: NKA ; Type: Allergy ; Updated By: LORE ALEGRIA RN; Reviewed Date: 06/02/2011 15:25 NEUROLOGY SPECIALIST Source: [facility] POWERCHART Document Id: [id number] NEUROLOGY SPECIALIST!26 documented in this encounter Plan of Treatment Not on filedocumented as of this encounter Visit Diagnoses Not on filedocumented in this encounter
--- OUTSIDE RECORDS SUMMARY | 2022-03-07 20:16 | XMS_ITS | Encounter Summary ---
:1995 Author Organization [facility] [place] [address] Care Team Providers Name Role Phone Unavailable Primary Care Provider Unavailable Encounter Details Date Type Department Care Team Description 11/18/2010 Hospital Encounter HX [facility] FB FAMILYPRA Margarita Barr i, M.D. [address] [place] [phone] (Wo rk) Social History Tobacco Use Types Packs/Day Years Used Date Smoking Tobacco: Never Assessed Sex Assigned at Date Recorded Female 07/27/2019 2:28 PM CDT documented as of this encounter Progress Notes Margarita Skelton M.D. - 11/18/2010 12:00 AM CDT [id number] CHIEF COMPLAINT/ REASON FOR VISIT Stomachache HISTORY [...] MORROW MD On: 02/03/2011 01:15 PM Source: [facility] MHSDOLBEYNONRADSYS Document Id: [id number] documented in this encounter Nursing Notes Conversion, Historical Provider Ser - 11/18/2010 3:35 PM CDT gi appt [facility] gi appt pending Electronically Signed By: LOIS CASAS LPN On: 11/18/2010 03:35 pm Source: [facility] POWERCHART Document Id: [id number] documented in this encounter Miscellaneous Notes Miscellaneous [...] results Due Date/Time: 11/22/2010 16:56:00 CDT Source: [facility] HistoSonicsCHART Document Id: [id number] Electronically signed by Conversion, [facility] Fur Machine Operator [id number] at 10/05/2016 3:46 PM CDT Suricellshannon - [...] results Due Date/Time: 11/19/2010 09:19:00 CDT Source: [facility] POWERCHART Document Id: [id number] Electronically signed by Conversion, [facility] Fur Machine Operator [id number] at 10/05/2016 3:46 PM CDT SuricellMargarita Recinos M.D. - 11/18/2010 5:12 PM CDT Results Notification Document Contains Addenda Addendum by GEO CHAVIS on 19 November 2010 09:58:15 CDT MAILED TO PATIENT. From: MARGARITA MORROW MD To: LOIS CASAS Sent: 11/18/2010 17:12:56 CDT ! Show up: 11/18/2010 17:12:00 CDT Subject: Results Notification Actions: Notify patient of results Due Date/Time: 11/18/2010 17:12:00 CDT Source: [facility] [employer] Document Id: [id number] Electronically signed by Conversion, [facility] Fur Machine Operator [id number] at 10/05/2016 3:46 PM CDT Miscellaneous - Conversion, Historical Provider Ser - 11/18/2010 1:31 PM CDT Pediatric Sign Out Clerk Intake/History Pediatric Sign Out Clerk Intake/History Entered On: 11/18/2010 13:32 CDT Performed [...] RN; Reviewed Date: 11/18/2010 13:30 CDT Source: [facility] [employer] Document Id: [id number] CDT!22 documented in this encounter Plan of Treatment Not on filedocumented as of this encounter Visit Diagnoses Not on filedocumented in this encounter
--- OUTSIDE RECORDS SUMMARY | 2022-03-07 20:16 | XMS_ITS | Encounter Summary ---
:1995 Author Organization [facility] [place] [address] Care Team Providers Name Role Phone Unavailable Primary Care Provider Unavailable Encounter Details Date Type Department Care Team Description 12/27/2010 Hospital Encounter HX [facility] FB FAMILYPRA Margarita Barr i, M.D. [address] [place] [phone] (Wo rk) Social History Tobacco Use Types Packs/Day Years Used Date Smoking Tobacco: Never Assessed Sex Assigned at Date Recorded Female 07/27/2019 2:28 PM CDT documented as of this encounter Progress Notes Margarita Skelton M.D. - 12/27/2010 12:00 AM CDT [id number] CHIEF COMPLAINT/REASON FOR VISIT Recheck HISTORY OF [...] MORROW MD On: 02/03/2011 01:19 PM Source: [facility] MHSDOLBEYNONRADSYS Document Id: [id number] documented in this encounter Miscellaneous Notes Miscellaneous [...] drinking it. She does have appt in [place] on Feb.03. Mom wonders if there is anything else she can do? SHARON From: MARGARITA MORROW MD To: LOIS CASAS LPN Sent: 12/30/2010 20:34:03 CDT ! Show up: 12/30/2010 20:33:00 CDT Subject: Results Notification Actions: Notify patient of results Due Date/Time: 12/30/2010 20:33:00 CDT Source: [employer] Document Id: [id number] Miscellaneous - Conversion, Historical Provider Ser - 12/27/2010 12:23 PM CDT Adult Nurse Case Management Intake/History Adult Nurse Case Management Intake/History Entered On: 12/27/2010 12:30 CDT Performed [...] RN; Reviewed Date: 11/18/2010 13:30 CDT Source: [employer] Document Id: [id number] CDT!19 documented in this encounter Plan of Treatment Not on filedocumented as of this encounter Visit Diagnoses Not on filedocumented in this encounter
--- OUTSIDE RECORDS SUMMARY | 2022-03-07 20:16 | XMS_ITS | Encounter Summary ---
:1995 Author Organization [facility] [place] [address] Care Team Providers Name Role Phone Unavailable Primary Care Provider Unavailable Encounter Details Date Type Department Care Team Description 12/30/2010 Hospital Encounter HX [facility] FBHB BRIANOUN Zaynab Barr i, M.D. [address] [place] [phone] (Wo rk) Social History Tobacco [...]
--- OUTSIDE RECORDS SUMMARY | 2022-03-07 20:16 | XMS_ITS | Clinical Summary ---
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 Pap smear for cervical cancer screening 05/02/2021 Overview: 04/2021 NIL Plan: Pap/HPV due 04/2024 Encounters Date Type Specialty Care Team Description 12/19/2021 Transcribe Orders Hyacinth Looney DO from Last 3 Months Immunizations Name Administration Dates Next Due COVID-19 vaccine ([employer] 05/02/2021 30mcg/0.3mL) PF, MDV DTaP 02/01/1999, 07/02/1995 [...] Comments Blood Pressure 104/69 05/02/2021 8:59 AM LEAD SCIENTIST Pulse 79 05/02/2021 8:59 AM LEAD SCIENTIST Temperature 36.9 ??C (98.4 ??F) 05/06/2015 12:03 AM LEAD SCIENTIST Respiratory Rate 18 05/06/2015 12:03 AM LEAD SCIENTIST Oxygen Saturation 100% 05/02/2021 8:59 AM LEAD SCIENTIST Inhaled Oxygen Concentration - - Weight 89.1 kg (196 lb 6.4 oz) 05/02/2021 8:59 AM LEAD SCIENTIST Height 171.3 cm (5' 7.44) 05/02/2021 8:59 AM LEAD SCIENTIST Body Mass Index 30.36 05/02/2021 8:59 AM LEAD SCIENTIST Plan of Treatment Health Maintenance Due Date Last Done Comments Hepatitis C screening for age 1103/10/2012 18-79 COVID-19 vaccine series (4 - 06/27/2021 05/02/2021, 021, Booster for Moderna series) 07/04/2020 Influenza for age 9-49 01/02/2022 05/02/2021, 04/07/2017, 04/04/2016, Additional history exists BMI (ht and wt on same day) for 05/02/2022 05/02/2021 age 18+ Depression screening for age 12+ 05/02/2022 05/02/2021 Pap test for age 21-65 05/02/2024 05/02/2021 Tetanus booster 04/04/2026 04/04/2016, 07/09/2006 Tdap Completed 04/04/2016, 07/09/2006 Results Not on filefrom Last 3 Months Insurance Payer Benefit Plan / Subscriber ID Effective Dates Phone Addre ss Type Group PREFERRED ONE PREFERRED ONE [id number] 2021-Present [address] [place] [address] h F y (Home) [place] [id number] Erika MOSQUERA Personal/Famil Self 1995 [address] [place] y (Home) [place] [id number] Oralia Esqueda Personal/Famil Mother 04/18/1962 [id number] [facility] (Home[facility] [place] [id number] Care Teams Cushion Cover Inspector Relationship Specialty Start Date End Date Zaynab Roberts, PCP - General Family Practice 12/02 10/12
--- OUTSIDE RECORDS SUMMARY | 2022-03-07 20:16 | XMS_ITS | Encounter Summary ---
:1995 Author Organization [facility] [place] [address] Care Team Providers Name Role Phone Unavailable [...]
--- OUTSIDE RECORDS SUMMARY | 2022-03-07 20:16 | XMS_ITS | Encounter Summary ---
:1995 Author Organization [facility] [place] [address] Care Team Providers Name Role Phone Unavailable Primary Care Provider Unavailable Encounter Details Date Type Department Care Team Description 06/03/2011 Hospital Encounter HX [facility] FB[facility] FAMILYPRA Natalie Bedolla APRN, C.N.P. [address] [place] [phone] (Wo rk) Social History Tobacco Use Types Packs/Day Years Used Date Smoking Tobacco: Never Assessed Sex Assigned at Date Recorded Female 07/27/2019 2:28 PM CDT documented as of this encounter Last Filed Vital Signs Vital Sign Reading Time Taken Comments Blood Pressure 96/60 06/03/2011 1:52 PM CHANGE MANAGEMENT MANAGER Pulse 64 06/03/2011 1:52 PM CHANGE MANAGEMENT MANAGER Temperature - - Respiratory Rate 16 06/03/2011 1:52 PM CHANGE MANAGEMENT MANAGER Oxygen Saturation - - Inhaled Oxygen Concentration - - Weight - - Height - - Body Mass Index - - documented in this encounter Progress Notes Pricila Bedolla APRN, C.N.P. - 06/03/2011 12:00 AM CST [id number] CHIEF COMPLAINT/ REASON FOR VISIT Rash after [...] not improve SJM/clf Signed Pricila Bedolla, MSN, SFDC SOLUTION ARCHITECT, CDE Family Nurse Practitioner Electronically Signed By: PRICILA BEDOLLA CNP On: 06/04/2011 09:10 AM Source: [facility] MHSDOLBEYNONRADSYS Document Id: [id number] GE MANAGEMENT MANAGER documented in this encounter Miscellaneous Notes Miscellaneous - Pricila Bedolla APRN, C.N.P. - 06/03/2011 2:16 PM CST Ambulatory Patient Summary [address] [address] Visit Information Name: CHANDRIKA ESQUEDA Current Date: [...] Malabsorption Active 02/15/2011 fructose / per [facility] Allergic reaction [...] No Appointments found Your Goals/Additional instructions: Source: [facility] [employer] Document Id: [id number] GE MANAGEMENT MANAGER Miscellaneous - Pricila Bedolla APRN, C.N.P. - 06/03/2011 2:16 PM CST Ambulatory Depart Summary [address] [address] Visit Information Name: CHANDRIKA ESQUEDA Current Date: 06/03/2011 14:16:55 Attending Provider: PRICILA BEDOLLA [facility] Primary Care Provider: MARGARITA MORROW [...] directed for 5 Days Additional Information: Source: [facility] [employer] Document Id: [id number] GE MANAGEMENT MANAGER Miscellaneous - Conversion, Historical Provider Ser - 06/03/2011 1:52 PM CHANGE MANAGEMENT MANAGER Pediatric Weblogic Administrator Intake/History Pediatric Weblogic Administrator Intake/History Entered On: 06/03/2011 13:53 CHANGE MANAGEMENT MANAGER Performed On: 06/03/2011 13:52 CHANGE MANAGEMENT MANAGER by GEO CHAVIS Intake Chief Complaint : mono test Temperature Core : 36.8C(Converted to: 98.2DegF) Peripheral Pulse Rate : 64/min Respiratory Rate : 16/min Heart Rhythm : Regular Systolic Blood Pressure : 96mmHg Diastolic Blood Pressure : 60mmHg NIBP Mean : 72mmHg BP Location : Left upper extremity Blood Pressure Cuff Size : Regular GEO CHAVIS 06/03/2011 13:52 CHANGE MANAGEMENT MANAGER Subjective Pain Symptoms : No GEO CHAVIS 06/03/2011 13:52 CHANGE MANAGEMENT MANAGER Dependent Habits Tobacco Use/Currently Using : No Exposure to Tobacco Smoke : Other: Never Smoking Status : Never smoker GEO CHAVIS 06/03/2011 13:52 CHANGE MANAGEMENT MANAGER Allergy Allergies (Active) NKA Estimated Onset Date: Unspecified ; Created By: LORE ALEGRIA RN; Reaction Status: Active; Category: Drug ; Substance: NKA ; Type: Allergy ; Updated By: LORE ALEGRIA RN; Reviewed Date: 06/02/2011 15:25 CHANGE MANAGEMENT MANAGER Source: [facility] [employer] Document Id: [id number] CHANGE MANAGEMENT MANAGER!18 documented in this encounter Plan of Treatment Not on filedocumented as of this encounter Visit Diagnoses Not on filedocumented in this encounter
[2022-03-15 09:27] LABS: Progesterone, HPLC-MS/MS 47.77 ng/mL
== END 2022-03-07 09:52 | disposition home or self-care (01) ==
LOC: NFLDREF 16:15
PROVIDERS: Visit Provider Registered Nurse
DX: Z31.9 Encounter for procreative management, unspecified (principal)
CPT/HCPCS: 84144

== ENCOUNTER 2023-01-16 13:46 | Outpatient (CLI) | payer OTHER, SELFPAY ==
--- NOTE | 2023-01-16 14:00 | CRLHL7_ITS ---
For Patients: As a result of the Century Cures Act, medical imaging exams and procedure reports are released immediately into your electronic medical record. You may view this report before your referring provider. If you have questions, please contact your health care provider. INDICATION: First trimester scan, establish dates. TECHNIQUE: Real-time jordan-scale imaging of the pelvis was performed. FINDINGS: Sonographic imaging demonstrates a single living intrauterine gestation. The embryo demonstrates a regular cardiac rate measuring 169 beats per minute. The embryo`s crown-rump length measurement of 3.1 cm corresponds to a gestational age of 10 weeks 0 days with a sonographic due date of 08/14/2023 . There is a normal-appearing yolk sac. Right paraovarian simple appearing cyst measuring 1.7 x 1.3 x 1.4 centimeters. IMPRESSION: Normal first trimester OB ultrasound exam. Gestational age calculated at 10 weeks 0 days with a sonographic due date of 08/14/2023 . Dictated by Obdulia Vega MD @ 01/17/2023 5:30:24 AM (Electronically Signed)
== END 2023-01-16 13:47 | disposition home or self-care (01) ==
LOC: US 13:48
PROVIDERS: Visit Provider Physician Assistant
DX: Z34.91 Encounter for supervision of normal pregnancy, unspecified, first trimester (principal); Z3A.10 10 weeks gestation of pregnancy
CPT/HCPCS: 76817; 86592; 86703; 86762; 86787; 86803; 86850; 86900; 86901; 87086; 87340; 87491; 87591

== ENCOUNTER 2023-04-10 08:04 | Outpatient (CLI) | payer OTHER, SELFPAY ==
--- NOTE | 2023-04-10 08:15 | CRLHL7_ITS ---
For Patients: As a result of the Century Cures Act, medical imaging exams and procedure reports are released immediately into your electronic medical record. You may view this report before your referring provider. If you have questions, please contact your health care provider. INDICATION: Evaluate anatomy. COMPARISON: 01/16/2023 TECHNIQUE: Real time jordan scale imaging of the fetus was performed as well as color Doppler analysis of the umbilical vessels. FINDINGS: Sonographic imaging demonstrates a single living intrauterine gestation. Fetus demonstrates a regular cardiac rate of 154 beats per minute. Fetus has a vertex position. The placenta lies anteriorly. The placental edge is located 1.2 cm from the internal cervical os. Amniotic fluid volume appears normal. Single deepest vertical pocket: 4.5 cm. The cervix is closed and measures 5.1 cm in length. The composite ultrasound gestational age is calculated at 22 weeks 1 day with an estimated sonographic due date of 08/13/2023. The estimated weight is 506 grams which lies at the 68th %. The following biometric measurements were obtained: Biparietal diameter: 5.1 cm/21 weeks 4 days 29th% Head circumference: 19.4 cm/21 weeks 4 days 23rd% Abdominal circumference: 17.7 cm/22 weeks 4 days 61st% Femur length: 3.9 cm/22 weeks 5 days 63rd% The HC/AC ratio measures: 1.10 range (1.05-1.23) On anatomic survey, there is a normal appearance of the cerebral ventricles, cavum septi pellucidi, cisterna magna and cerebellum. The nose, lips, and facial profile appear normal. The cervical, thoracic and lumbar spine are well visualized and appear normal. There is a normal four-chamber heart view and the left and right ventricular outflow tracts appear normal. The diaphragm and stomach appear normal. The kidneys and bladder also appear normal. There is a normal three-vessel cord. The cord insertion site was not visualized. The four extremities appear normal. IMPRESSION: Concordance of clinical and sonographic dating. No intrinsic abnormalities noted on anatomic survey. Low-lying placenta with the edge of the placenta located 1.2 cm from the internal cervical os with transvaginal measurement. The placental cord insertion was not visualized. Dictated by Castillo Figueroa MD @ 04/10/2023 10:38:35 AM (Electronically Signed)
== END 2023-04-10 08:05 | disposition home or self-care (01) ==
LOC: US 08:05
PROVIDERS: Visit Provider Obstetrics & Gynecology
DX: Z34.92 Encounter for supervision of normal pregnancy, unspecified, second trimester (principal); O44.42 Low lying placenta NOS or without hemorrhage, second trimester; Z3A.22 22 weeks gestation of pregnancy
CPT/HCPCS: 76805; 76817

== ENCOUNTER 2023-05-08 12:59 | Outpatient (CLI) | payer OTHER, SELFPAY ==
--- NOTE | 2023-05-08 13:00 | CRLHL7_ITS ---
For Patients: As a result of the Century Cures Act, medical imaging exams and procedure reports are released immediately into your electronic medical record. You may view this report before your referring provider. If you have questions, please contact your health care provider. INDICATION: Low lying placenta / cord insert into placenta COMPARISON: 04/10/2023 TECHNIQUE: Real time jordan scale imaging of the fetus was performed with transabdominal and transvaginal technique. FINDINGS: Sonographic imaging demonstrates a single living intrauterine gestation. Fetus demonstrates a regular cardiac rate of 169 beats per minute. Fetus has a variable position. The placenta lies anteriorly. The edge of the placenta is located 2.2 cm from the internal cervical os. Central cord insertion into the placenta. Amniotic fluid volume appears normal and there is a single deepest vertical pocket: 5.8 cm. Cervix measures 4.5 cm. IMPRESSION: Closed cervix measuring 4.5 cm. Central cord insertion into the placenta. No previa. Dictated by Castillo Figueroa MD @ 05/08/2023 2:44:11 PM (Electronically Signed)
== END 2023-05-08 13:00 | disposition home or self-care (01) ==
LOC: US 13:00
PROVIDERS: Visit Provider Obstetrics & Gynecology
DX: O44.42 Low lying placenta NOS or without hemorrhage, second trimester (principal)
CPT/HCPCS: 76816; 76817

== ENCOUNTER 2023-05-22 14:32 | Outpatient (CLI) | payer OTHER, SELFPAY ==
--- OUTSIDE RECORDS SUMMARY | 2023-05-25 09:10 | XMS_ITS | Encounter Summary ---
Author Name Unknown Organization [facility] [place] [address] Care Team Providers Care Cotton Farmworker Name Role Phone Elsewhere, Pcp Primary Care Provider Unavailabl e Encounter Details Date Type Department Care Team ( Contact Info) Description 12/25/2022 Clinical Communication Department of Family Medicine, [facility], in [place], [place] [address] [place] [address] Jacquie Estrada RJoshuaN. Social History Tobacco Use Types Packs/Day Years Used Date Smoking Tobacco: Never Smokeless Tobacco: Never Alcohol Use Standard Drinks/Week Comments Yes 0 (1 standard drink = 0.6 oz pur e alcohol) occasional Nutrition Answer Date Recorded Nutrition: EVOO Fat Source Unknown 07/03 Nutrition: Servings of Fruits/Vegetables per Day Not on file 07/03/2020 Dental Answer Date Recorded Dental: Regular Dentist Unknown 07/04/19 21 Sex and Gender Information Value Date Recorded Sex Assigned at Female 07/27/2019 2:28 PM CDT Gender Identity Female 07/27/2019 2:28 PM CDT Sexual Orientation Straight 07/27/2019 2: 28 PM CDT documented as of this encounter Miscellaneous Notes * Telephone Encounter - Jacquie Estrada R.N. - 12/25/2022 3:23 PM CDT Patient established care with [facility], Hyacinth Looney, Please PCP elsewhere. documented in this encounter Plan of Treatment Not on file documented as of this encounter Visit Diagnoses Not on filedocumented in this encounter Additional Health Concerns Assessment Noted Time PHQ-9 Depression Total Score: 0 06/10/19 18 11:42 AM SENIOR CLINICAL DATA COORDINATOR documented as of this encounter Care Teams Cotton Farmworker Relationship Specialty Start Date End Date Elsewhere, Pcp PCP - General Internal Medicine 12/25/22 documented as of this encounter
--- OUTSIDE RECORDS SUMMARY | 2023-05-25 09:10 | XMS_ITS ---
Author Name Unknown Organization [facility] [place] [address] Care Team Providers Care Bottom Scrubber Name Role Phone Unavailable Unavailable Unavailable Surgery Details Not on file Complications Check Surgery Details section. Procedure Estimated Blood Loss Check Surgery Details section. Procedure Findings Check Surgery Details section. Procedure Specimens Taken Check Surgery Details section.
--- OUTSIDE RECORDS SUMMARY | 2023-05-25 09:10 | XMS_ITS | Referral Summary ---
Author Name Unknown Organization [facility] [place] [address] Care Team Providers Care Tool Analyst Name Role Phone Elsewhere, Pcp Primary Care Provider Unavailabl e Source Comments Patient records contain information from all sites at [facility]. For routine questions regarding patient records, call [phone] during business hours, M-F 8:00 AM - 5:00 PM Central Time. 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 Malabsorption 11/01/2015 Overview: does not tolerate fructose Immunizations Name Administration Dates Next Due 4vHPV (discontinued) 04/04/2016,12/01/2012 DTaP (Infanrix, Tripedia) 02/01/1999,07/02/1995 HepA Pediatric/Adolescent 04/19/2007,07/09/2006 HepB, Unspecified 1994,1994,03/21/19 94 Hib, Unspecified 07/02/1995 IPV 02/01/1999 Influenza TIV (IM) 04/09/2012 Influenza, Injectable, Mdck, Preservative Free, Quadrivalent 02/01/2019 Influenza, Injectable, Quadrivalent 04/07/2017 Influenza, Unspecified 04/04/2016,02/15/2015,11/2011 MCV4 (Menactra) 12/01/2012,12/10/2009 MMR 02/01/1999,07/02/1995 PPD Test 09/07/2017 Tdap 01/04/2022, 6,07/09/2006,2005 MARILU 12/10/2009,04/28/1996 Social History Tobacco Use Types Packs/Day Years [...] Orientation Straight 07/27/2019 2: 28 PM CDT Last Filed Vital Signs Vital Sign Reading Time Taken Comments Blood Pressure 144/90 01/04/2022 6:42 PM CDT Pulse 90 01/04/2022 6:36 PM CDT Temperature 37 ??C (98.6 ??F) 03/29/2018 2:00 PM CATHETERIZATION LABORATORY TECHNICIAN Respiratory Rate 16 03/29/2018 2:00 PM CATHETERIZATION LABORATORY TECHNICIAN Oxygen Saturation 100% 01/04/2022 6:36 PM CDT Inhaled Oxygen Concentration - - Weight 91 kg (200 lb 9.9 oz) 01/04/2022 6:44 PM CDT Height 171 cm (5' 7.32) 03/29/2018 2:00 PM CATHETERIZATION LABORATORY TECHNICIAN Body Mass Index 31.12 03/29/2018 2:00 PM CATHETERIZATION LABORATORY TECHNICIAN Plan of Treatment Not on file Care Teams Tool Analyst Relationship Specialty Start Date End Date Elsewhere, Pcp PCP - General Internal Medicine 12/25/22
--- OUTSIDE RECORDS SUMMARY | 2023-05-25 09:10 | XMS_ITS | Clinical Summary ---
Author Name Unknown Organization [facility] [place] [address] Care Team Providers Care Hydraulic Press In Operator Name Role Phone Elsewhere, Pcp Primary Care Provider Unavailabl e Source Comments Patient records contain information from all sites at [facility]. For routine questions regarding patient records, call [phone] during business hours, M-F 8:00 AM - 5:00 PM Central Time. Record requests for emergency care only can be directed to [phone] at any time.[facility] Allergies Active Allergy Reactions Criticality Noted [...] Test 09/07/2017 Tdap 01/04/2022, 6,07/09/2006,2005 MARILU 12/10/2009,04/28/1996 Family History Medical History Relation Name Comments [...] 37 ??C (98.6 ??F) 03/29/2018 2:00 PM RAMP LEAD Respiratory Rate 16 03/29/2018 2:00 PM RAMP LEAD Oxygen Saturation 100% 01/04/2022 6:36 PM CDT Inhaled Oxygen Concentration - - Weight 91 kg (200 lb 9.9 oz) 01/04/2022 6:44 PM CDT Height 171 cm (5' 7.32) 03/29/2018 2:00 PM RAMP LEAD Body Mass Index 31.12 03/29/2018 2:00 PM RAMP LEAD Plan of Treatment Health Maintenance Due Date Last Done Comments HIV Screening 1994 Hepatitis C Screening 1994 HPV Vaccines (3 - 3-dose series) 06/27/2016 04/04/2016, 12/01/2012, 12/01/2012 Cervical Cancer Screening 04/04/2019 04/04/2016 COVID-19 Vaccine ( season) 2023 05/08/2022, 05/02/2021, 08/15/2020, Additional history exists Depression Screening (Annual PHQ-2) 05/04/2023 DTaP,Tdap,and Td Vaccines (7 - Td or Tdap) 01/05/2032 01/04/2022, 04/04/2016, 07/09/2006, Additional history exists Hepatitis B Vaccines Completed 1994, 1994, 1994, Additional history exists Varicella Vaccines Completed 12/10/2009, 04/28/1996 Influenza Vaccine Completed 04/10/2023, , 05/02/2021, Additional history exists Pneumococcal vaccine (0-64 years) Aged Out No longer eligible based on patient's age to complete this topic Care Teams Hydraulic Press In Operator Relationship Specialty Start Date End Date Elsewhere, Pcp PCP - General Internal Medicine 12/25/22
--- OUTSIDE RECORDS SUMMARY | 2023-05-25 09:10 | XMS_ITS | Encounter Summary ---
Author Name Unknown Organization [facility] [place] [address] Care Team Providers Care Academic Assistant Name Role Phone Elsewhere, Pcp Primary Care Provider Alice e Encounter Details Date Type Department Care Team (Late Contact Info) Description 08/24/2014 Historical Ophthalmology [facility] Stephen Jimenez Jr., M.D. [address] [place] [address] Social History Tobacco Use Types Packs/Day Years Used Date Smoking Tobacco: Never Assessed Sex and Gender Information Value Date Recorded Sex Assigned at Female 07/27/2019 2:28 PM CDT Gender Identity Female 07/27/2019 2:28 PM CDT Sexual Orientation Straight 07/27/2019 2: 28 PM CDT documented as of this encounter Progress Notes * Stephen Jimenez M.D. - 08/24/2014 8:44 AM CDT Eye General CHIEF COMPLAINT Pt here for complete eye exam HISTORY OF PRESENT ILLNESS Some trouble [facility] night driving IMPRESSION / REPORT / PLAN A) Myopia, unchanged P) glasses at night only if desired. RTO 1-2 year CDM Reports - EYEGEN Id: [id number] Status: Fnl documented in this encounter Plan of Treatment Not on file documented as of this encounter Visit Diagnoses Not on filedocumented in this encounter Additional Health Concerns Infection Onset Date Last Indicated Resolved Time COVID19 Pending 04/11/2020 04/11/2020 04/11/2020 2 :39 PM INDUSTRIAL MILLWRIGHT COVID19 Pending 04/11/2020 04/11/2020 04/12/2020 4 :05 AM INDUSTRIAL MILLWRIGHT COVID19 Pending 07/24/2020 07/24/2020 07/25/2020 4 :38 AM CDT COVID19 07/24/2020 07/24/2020 08/13/2020 4:46 AM CDT documented as of this encounter Care Teams Academic Assistant Relationship Specialty Start Date End Date Elsewhere, Pcp PCP - General Internal Medicine 12/25/22 documented as of this encounter
--- OUTSIDE RECORDS SUMMARY | 2023-05-25 09:10 | XMS_ITS | Encounter Summary ---
Author Name Unknown Organization [facility] [place] [address] Care Team Providers Care Bacteriology Teacher Name Role Phone Jake Villegas M.D. Primary Care Provider [phone] Encounter Details Date Type Department Care Team (Late st Contact Info) Description 11/11/2022 Orders Only [facility] PCP [facility] M[facility] Jake Villegas M.D. [address] [place] [phone] Social History Tobacco Use Types Packs/Day Years [...] Total Score: 0 06/10/19 18 11:42 AM MATERIAL SPECIALIST documented as of this encounter Care Teams Bacteriology Teacher Relationship Specialty Start Date End Date Jake Villegas M.D. [address] [place] [address] PCP - General 06/14/20 12/24/22 documented as of this encounter
--- OUTSIDE RECORDS SUMMARY | 2023-05-25 09:10 | XMS_ITS | Clinical Summary ---
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 Pap smear for cervical cancer screening 05/02/20 21 Overview: 04/2021 NIL Plan: Pap/HPV due 04/2024 Immunizations Name Administration Dates Next Due COVID-19 vaccine (Viki NTech 30mcg/0.3mL) 12YO+ BIVALENT PF, MDV 05/08/2022 COVID-19 vaccine (Viki NTech 30mcg/0.3mL) PF, MDV 05/02/2021 DTaP 02/01/1999,07/02/1995 HPV 9 (Gardasil 9) 04/04/2016 Hepatitis A (Peds) 04/19/2007,07/09/2006 Hepatitis B, Unspecified 1994,1994,1 05/21/1993 Hib Conjugate, Unspecified 07/02/1995 Human Papilloma Virus Vaccine 12/01/2012 Inactivated Polio Vaccine 02/01/1999 Influenza, IIV3 (Age >=3 years) 04/09/2012 Influenza, IIV4 05/08/2022,05/02/2021,04/04/2016 Influenza, IIV4 (=>6mos) MDV 04/07/2017,02/16/20 15 MMR 02/01/1999,07/02/1995 Measles-Rubella 02/01/1999 Meningococcal Vaccine (Menactra) 12/01/2012,08/0 01/2010 Tdap 01/04/2022, 6,07/09/2006,11/12 Varicella Vaccine 12/10/2009,04/28/1996, 96 Family History Medical History Relation Name Comments Depression Brother 1 Cancer-pancreatic Father Pulmonary embolism Maternal Grandmother a fter surgery and Melanoma Maternal Uncle Deep vein thrombosis Sister pt not sure of cause Leukemia Sister Relation Name Status Comments Brother 1 Alive Brother 2 Alive Father Maternal Grandmother Maternal Uncle Mother Alive Sister Alive Social History Tobacco Use Types Packs/Day Years Used Date Smoking Tobacco: Never Smokeless Tobacco: Never Tobacco Cessation:Counseling Given: Yes Alcohol Use Standard Drinks/Week Comments Yes 0 (1 standard drink = 0.6 oz pur e alcohol) PHQ-2 Answer Date Recorded PHQ-2 TOTAL SCORE 0 01/21/2023 Social Connections Answer Date Recorded Frequency of Communication with Friends and Fami ly Not on file 05/19/2023 Alcohol Use Answer Date Recorded How often do you have a drink containing alcohol ? 2 05/08/2022 How many drinks containing a lcohol do you have on a typical day when you are drinking? 0 05/08/2022 How often do you have five or more drinks on one occasion? 0 05/08/2022 Financial Resource Strain Answer Date R ecorded Difficulty of Paying Living Expenses 3 05/07/2022 Difficulty of Paying Living Expenses Not on file 05/07/2022 Food Insecurity Answer Date Recorded Worried About Running Out of Food in the Last Ye ar 1 05/07/2022 Transportation Needs Answer Date Record ed Lack of Transportation (Medical) 1 05/07/2022 Housing Stability Answer Date Recorded Unable to Pay for Housing in the Last Year 1 05/07/2022 Sex and Gender Information Value Date Recorded Sex Assigned at Not on file Gender Identity Not on file Sexual Orientation Not on file Obstetrics History Para Term AB IAB SAB Ectopic Multiple Livin g Live Births 0 0 0 0 0 0 0 0 0 0 0 Last Filed Vital Signs Vital Sign Reading Time Taken Comments Blood Pressure 127/82 05/08/2022 8:31 AM TECHNOLOGY SALES REPRESENTATIVE Pulse 92 05/08/2022 8:31 AM TECHNOLOGY SALES REPRESENTATIVE Temperature 36.9 ??C (98.4 ??F) 05/06/2015 12:[address] Respiratory Rate 18 05/06/2015 12:03 AM TECHNOLOGY SALES REPRESENTATIVE Oxygen Saturation 98% 05/08/2022 8:31 AM TECHNOLOGY SALES REPRESENTATIVE Inhaled Oxygen Concentration - - Weight 87.5 kg (193 lb) 05/08/2022 8:31 AM TECHNOLOGY SALES REPRESENTATIVE Height 171.3 cm (5' 7.44) 05/02/2021 8:59 AM CS T Body Mass Index 29.83 05/02/2021 8:59 AM TECHNOLOGY SALES REPRESENTATIVE Plan of Treatment Health Maintenance Due Date Last Done Comments HIV for age 15-65 2009 Hepatitis C screening for age 18-79 2012 BMI (ht and wt on same day) for age 18+ 05/02/2022 05/02/2021 COVID-19 vaccine series ( season) 2023 05/08/2022, 05/02/2021 Influenza for age 9-49 01/02/2023 , 05/02/2021, 04/07/2017, Additional history exists Depression screening for age 12+ 01/22/2024 01/21/2023, 01/21/2023, 11/21/2022, Additional history exists Pap test for age 21-65 05/02/2024 05/02/2021 Tetanus booster 01/05/2032 01/04/2022, 06/2015, 07/09/2006, Additional history exists Tdap Completed 01/04/2022, 06/2015, 07/09/2006, Additional history exists Pneumococcal series for age 6-64 Aged Out No longer eligible based on patient's age to complete this topic Care Teams Superintendent Operations Division Relationship Specialty Start Date End Date Hyacinth Looney [place] [address] [place] [address] PCP - General Family Practice 05/08/22
== END 2023-05-22 14:33 | disposition home or self-care (01) ==
LOC: NFLDREF 05-25 09:08
PROVIDERS: Visit Provider Obstetrics & Gynecology
DX: Z34.92 Encounter for supervision of normal pregnancy, unspecified, second trimester (principal); Z3A.27 27 weeks gestation of pregnancy
CPT/HCPCS: 86592

== ENCOUNTER 2023-05-28 07:47 | Outpatient (CLI) | payer OTHER, SELFPAY ==
--- OUTSIDE RECORDS SUMMARY | 2023-05-29 12:48 | XMS_ITS | Clinical Summary ---
Author Name Unknown Organization [facility] Address [place], [place] [address] Care Team Providers Care Tobacco Drummer Name Role Phone Hyacinth Looney Primary Care Provider [phone] Allergies Active Allergy Reactions Criticality Noted Date [...] Name Administration Dates Next Due COVID-19 vaccine (Shopular NTech 30mcg/0.3mL) 12YO+ BIVALENT PF, MDV 05/08/2022 COVID-19 vaccine (Shopular NTech 30mcg/0.3mL) PF, MDV 05/02/2021 DTaP 02/01/1999,07/02/1995 [...] Comments Blood Pressure 127/82 05/08/2022 8:31 AM OPERATIONS SCHEDULER Pulse 92 05/08/2022 8:31 AM OPERATIONS SCHEDULER Temperature 36.9 ??C (98.4 ??F) 05/06/2015 12:[address] Respiratory Rate 18 05/06/2015 12:03 AM OPERATIONS SCHEDULER Oxygen Saturation 98% 05/08/2022 8:31 AM OPERATIONS SCHEDULER Inhaled Oxygen Concentration - - Weight 87.5 kg (193 lb) 05/08/2022 8:31 AM OPERATIONS SCHEDULER Height 171.3 cm (5' 7.44) 05/02/2021 8:59 AM CS T Body Mass Index 29.83 05/02/2021 8:59 AM OPERATIONS SCHEDULER Plan of Treatment Health Maintenance Due Date [...] age to complete this topic Care Teams Tobacco Drummer Relationship Specialty Start Date End Date Hyacinth Looney [place] [address] PCP - General Family Practice 05/08/22
--- OUTSIDE RECORDS SUMMARY | 2023-05-29 12:48 | XMS_ITS | Referral Summary ---
Author Name Unknown Organization [facility] [place] [address] Care Team Providers Care Targeteer Name Role Phone Elsewhere, Pcp Primary Care Provider Unavailabl e Source Comments Patient records contain information from all sites at [facility]. For routine questions regarding patient records, call [phone] during business hours, M-F 8:00 AM - 5:00 PM Central Time. Record requests for emergency care only can be directed to [phone] at any time.[facility] Allergies Active Allergy Reactions Criticality Noted Date [...] 37 ??C (98.6 ??F) 03/29/2018 2:00 PM SUPERVISOR WET END Respiratory Rate 16 03/29/2018 2:00 PM SUPERVISOR WET END Oxygen Saturation 100% 01/04/2022 6:36 PM CDT Inhaled Oxygen Concentration - - Weight 91 kg (200 lb 9.9 oz) 01/04/2022 6:44 PM CDT Height 171 cm (5' 7.32) 03/29/2018 2:00 PM SUPERVISOR WET END Body Mass Index 31.12 03/29/2018 2:00 PM SUPERVISOR WET END Plan of Treatment Not on file Care Teams Targeteer Relationship Specialty Start Date End Date Elsewhere, Pcp PCP - General Internal Medicine 12/25/22
--- OUTSIDE RECORDS SUMMARY | 2023-05-29 12:48 | XMS_ITS | Encounter Summary ---
Author Name Unknown Organization [facility] [place] [address] Care Team Providers Care Mortar Maker Name Role Phone Jake Villegas M.D. Primary Care Provider Encounter Details Date Type Department Care Team (Late st Contact Info) Description 11/11/2022 Orders Only [facility] PCP [facility] MNT Jake Villegas M.D. [address] [place] [phone] Social History Tobacco Use Types Packs/Day Years [...] Total Score: 0 06/10/19 18 11:42 AM SQL SERVER DBA documented as of this encounter Care Teams Mortar Maker Relationship Specialty Start Date End Date Jake Villegas M.D. [address] [place] [address] PCP - General 06/14/20 12/24/22 documented as of this encounter
--- OUTSIDE RECORDS SUMMARY | 2023-05-29 12:48 | XMS_ITS | Encounter Summary ---
Author Name Unknown Organization [facility] [address] Care Team Providers Care Base Loader Name Role Phone Elsewhere, Pcp Primary Care Provider Unavailabl e Encounter Details Date Type Department Care Team ( Contact Info) Description 12/25/2022 Clinical Communication Department of Family Medicine, [facility], in [place], [place] [address] [place] [address] Jacquie Estrada RJoshuaN. Social History Tobacco Use [...] 3:23 PM CDT Patient established care with [facility], Hyacinth Looney, Please PCP elsewhere. documented in this encounter Plan of Treatment Not on file documented as of this encounter Visit Diagnoses Not on filedocumented in this encounter Additional Health Concerns Assessment Noted Time PHQ-9 Depression Total Score: 0 06/10/19 18 11:42 AM SKIP PIT WORKER documented as of this encounter Care Teams Base Loader Relationship Specialty Start Date End Date Elsewhere, Pcp PCP - General Internal Medicine 12/25/22 documented as of this encounter
--- OUTSIDE RECORDS SUMMARY | 2023-05-29 12:48 | XMS_ITS ---
Author Name Unknown Organization [facility] [place] [address] Care Team Providers Care Machine Maintenance Servicer Name Role Phone Unavailable Unavailable Unavailable Surgery Details Not on file Complications Check Surgery Details section. Procedure Estimated Blood Loss Check Surgery Details section. Procedure Findings Check Surgery Details section. Procedure Specimens Taken Check Surgery Details section.
--- OUTSIDE RECORDS SUMMARY | 2023-05-29 12:48 | XMS_ITS | Clinical Summary ---
Author Name Unknown Organization [facility] [place] [address] Care Team Providers Care Sensory Scientist Name Role Phone Elsewhere, Pcp Primary Care Provider Unavailabl e Source Comments Patient records contain information from all sites at [facility]. For routine questions regarding patient records, call [phone] during business hours, M-F 8:00 AM - 5:00 PM Central Time. Record requests for emergency care only can be directed to [phone] at any time.[facility] Allergies Active Allergy Reactions Criticality Noted Date [...] 02/01/1999,07/02/1995 PPD Test 09/07/2017 Tdap 01/04/2022, 6,07/09/2006,2005 MAIRLU 12/10/2009,04/28/1996 Family History Medical History Relation Name [...] 37 ??C (98.6 ??F) 03/29/2018 2:00 PM EMERGING TECHNOLOGIES DIRECTOR Respiratory Rate 16 03/29/2018 2:00 PM EMERGING TECHNOLOGIES DIRECTOR Oxygen Saturation 100% 01/04/2022 6:36 PM CDT Inhaled Oxygen Concentration - - Weight 91 kg (200 lb 9.9 oz) 01/04/2022 6:44 PM CDT Height 171 cm (5' 7.32) 03/29/2018 2:00 PM EMERGING TECHNOLOGIES DIRECTOR Body Mass Index 31.12 03/29/2018 2:00 PM EMERGING TECHNOLOGIES DIRECTOR Plan of Treatment Health Maintenance Due Date [...] age to complete this topic Care Teams Sensory Scientist Relationship Specialty Start Date End Date Elsewhere, Pcp PCP - General Internal Medicine 12/25/22
--- OUTSIDE RECORDS SUMMARY | 2023-05-29 12:48 | XMS_ITS | Encounter Summary ---
Author Name Unknown Organization [facility] [place] [address] Care Team Providers Care Neuro Ophthalmologist Name Role Phone Elsewhere, Pcp Primary Care Provider Alice e Encounter Details Date Type Department Care Team (Late Contact Info) Description 08/24/2014 Historical Ophthalmology [facility] Stephen Jimenez Jr., M.D. [address] [place] [address] Social History Tobacco Use Types [...] exam HISTORY OF PRESENT ILLNESS Some trouble [facility] night driving IMPRESSION / REPORT / PLAN A) Myopia, unchanged P) glasses at night only if desired. RTO 1-2 year CDM Reports - EYEGEN Id: [id number] Status: Fnl documented in this encounter Plan of Treatment Not on file documented as of this encounter Visit Diagnoses Not on filedocumented in this encounter Additional Health Concerns Infection Onset Date Last Indicated Resolved Time COVID19 Pending 04/11/2020 04/11/2020 04/11/2020 2 :39 PM STACKER TENDER COVID19 Pending 04/11/2020 04/11/2020 04/12/2020 4 :05 AM STACKER TENDER COVID19 Pending 07/24/2020 07/24/2020 07/25/2020 4 :38 AM CDT COVID19 07/24/2020 07/24/2020 08/13/2020 4:46 AM CDT documented as of this encounter Care Teams Neuro Ophthalmologist Relationship Specialty Start Date End Date Elsewhere, Pcp PCP - General Internal Medicine 12/25/22 documented as of this encounter
== END 2023-05-28 07:48 | disposition home or self-care (01) ==
LOC: NFLDREF 05-29 12:44
PROVIDERS: PCP Family Medicine; Visit Provider Obstetrics & Gynecology
DX: O99.810 Abnormal glucose complicating pregnancy (principal)
CPT/HCPCS: 82951; 82952

== ENCOUNTER 2023-06-18 07:22 | Outpatient (CLI) | payer OTHER, SELFPAY ==
--- NOTE | 2023-06-18 07:15 | US_ITS ---
Patient: INES SAL Facility:?[facility] RIS Patient ID:?[id number] Site Patient ID:?[id number]. Site :?1995 Study:?US-OB Pelvis -06/18/2023 8:04:04 AM Ordering Physician:PRECIOUS SANTIAGO Final Report: INDICATION: GESTATIONAL DIABETES, GROWTH COMPARISON: 05/08/2023 TECHNIQUE: Real time jordan scale imaging of the fetus was performed. FINDINGS: Sonographic imaging demonstrates a single living intrauterine gestation. Fetus demonstrates a regular cardiac rate of 161 beats per minute. Fetus has a vertex position. The placenta lies anteriorly. Amniotic fluid volume appears normal and there is a single deepest vertical pocket: 7.9 cm. The estimated weight is 1915gm which lies at the 53rd %. On the prior OB ultrasound exam dated 04/10/2023 the estimated weight was at the 68th%. BPD 82nd percentile. HC 80th percentile. AC 58th percentile. FL is 28th percentile. The HC/AC ratio measures 1.10 range (0.96-1.12). IMPRESSION: Sonographic gestational age 32 weeks 5 days and sonographic due date 08/08/2023. Sonographic ages 7 days ahead of the clinical age. Estimated weight 53rd percentile. Abdominal circumference 58th percentile. Dictated by Castillo Figueroa MD @ 06/18/2023 11:47:40 AM Signed by:?Castillo Figueroa MD @06/18/2023 11:47:40 AM (Electronic Signature)
--- OUTSIDE RECORDS SUMMARY | 2023-06-18 07:25 | XMS_ITS ---
Author Name Unknown Organization [facility] [place] [address] Care Team Providers Care Ambulance Driver Name Role Phone Unavailable Unavailable Unavailable Surgery Details Not on file Complications Check Surgery Details section. Procedure Estimated Blood Loss Check Surgery Details section. Procedure Findings Check Surgery Details section. Procedure Specimens Taken Check Surgery Details section.
--- OUTSIDE RECORDS SUMMARY | 2023-06-18 07:25 | XMS_ITS | Clinical Summary ---
Author Name Unknown Organization [facility] [place] [address] Care Team Providers Care Quill Machine Tender Name Role Phone Elsewhere, Pcp Primary Care Provider Unavailabl e Source Comments Patient records contain information from all sites at [facility]. For routine questions regarding patient records, call [phone] during business hours, M-F 8:00 AM - 5:00 PM Central Time. Record requests for emergency care only can be directed to [phone] at any time.[facility] Allergies Active Allergy [...] Injectable, Quadrivalent 04/07/2017 Influenza, Unspecified 04/04/2016,02/15/2015,11/2011 MCV4 (Menactra)(Discontinued) 12/01/2012, 010 MMR 02/01/1999,07/02/1995 PPD Test 09/07/2017 Tdap 01/04/2022, [...] 37 ??C (98.6 ??F) 03/29/2018 2:00 PM CLAY PROCESSING LABOURER Respiratory Rate 16 03/29/2018 2:00 PM CLAY PROCESSING LABOURER Oxygen Saturation 100% 01/04/2022 6:36 PM CDT Inhaled Oxygen Concentration - - Weight 91 kg (200 lb 9.9 oz) 01/04/2022 6:44 PM CDT Height 171 cm (5' 7.32) 03/29/2018 2:00 PM CLAY PROCESSING LABOURER Body Mass Index 31.12 03/29/2018 2:00 PM CLAY PROCESSING LABOURER Plan of Treatment Health Maintenance Due Date Last Done Comments HIV Screening 1995 Hepatitis C Screening 1995 HPV Vaccines (3 - 3-dose series) 06/27/2016 04/04/2016, 12/01/2012, 12/01/2012 Cervical Cancer Screening 04/04/2019 04/04/2016 COVID-19 Vaccine ( season) 2023 05/08/2022, 05/02/2021, 08/15/2020, Additional history exists Depression Screening (Annual PHQ-2) 05/04/2023 DTaP,Tdap,and Td Vaccines (8 - Td or Tdap) 06/05/2033 06/05/2023, 01/04/2022, 04/04/2016, Additional history exists Hepatitis B Vaccines Completed 1995, 1995, 1995, Additional history exists Varicella Vaccines Completed 12/10/2009, 04/28/1996 Influenza Vaccine Completed 04/10/2023, , 05/02/2021, Additional history exists Pneumococcal vaccine (0-64 years) Aged Out No longer eligible based on patient's age to complete this topic Care Teams Quill Machine Tender Relationship Specialty Start Date End Date Elsewhere, Pcp PCP - General Internal Medicine 12/25/22
--- OUTSIDE RECORDS SUMMARY | 2023-06-18 07:25 | XMS_ITS | Clinical Summary ---
Author Name Unknown Organization [facility] Address [place], [place] [address] Care Team Providers Care Tea Bag Packer Name Role Phone Hyacinth Looney Primary Care Provider [phone] Allergies Active Allergy Reactions Criticality Noted Date [...] Name Administration Dates Next Due COVID-19 vaccine ([employer] NTech 30mcg/0.3mL) 12YO+ BIVALENT PF, MDV 05/08/2022 COVID-19 vaccine ([employer] NTech 30mcg/0.3mL) PF, MDV 05/02/2021 DTaP 02/01/1999,07/02/1995 [...] Comments Blood Pressure 127/82 05/08/2022 8:31 AM SENIOR PAINTER Pulse 92 05/08/2022 8:31 AM SENIOR PAINTER Temperature 36.9 ??C (98.4 ??F) 05/06/2015 12:[address] Respiratory Rate 18 05/06/2015 12:03 AM SENIOR PAINTER Oxygen Saturation 98% 05/08/2022 8:31 AM SENIOR PAINTER Inhaled Oxygen Concentration - - Weight 87.5 kg (193 lb) 05/08/2022 8:31 AM SENIOR PAINTER Height 171.3 cm (5' 7.44) 05/02/2021 8:59 AM CS T Body Mass Index 29.83 05/02/2021 8:59 AM SENIOR PAINTER Plan of Treatment Health Maintenance Due Date [...] age to complete this topic Care Teams Tea Bag Packer Relationship Specialty Start Date End Date Hyacinth Looney [place] [address] [place] [address] PCP - General Family Practice 05/08/22
--- OUTSIDE RECORDS SUMMARY | 2023-06-18 07:25 | XMS_ITS | Referral Summary ---
Author Name Unknown Organization [facility] [place] [address] Care Team Providers Care Supervisor Packing Name Role Phone Elsewhere, Pcp Primary Care Provider Unavailabl e Source Comments Patient records contain information from all sites at [facility]. For routine questions regarding patient records, call [phone] during business hours, M-F 8:00 AM - 5:00 PM Central Time. Record requests for emergency care only can be directed to [phone] at any time.[facility] Allergies Active Allergy Reactions Criticality Noted Date [...] 37 ??C (98.6 ??F) 03/29/2018 2:00 PM ELECTRIC CUTTER OPERATOR Respiratory Rate 16 03/29/2018 2:00 PM ELECTRIC CUTTER OPERATOR Oxygen Saturation 100% 01/04/2022 6:36 PM CDT Inhaled Oxygen Concentration - - Weight 91 kg (200 lb 9.9 oz) 01/04/2022 6:44 PM CDT Height 171 cm (5' 7.32) 03/29/2018 2:00 PM ELECTRIC CUTTER OPERATOR Body Mass Index 31.12 03/29/2018 2:00 PM ELECTRIC CUTTER OPERATOR Plan of Treatment Not on file Care Teams Supervisor Packing Relationship Specialty Start Date End Date Elsewhere, Pcp PCP - General Internal Medicine 12/25/22
--- OUTSIDE RECORDS SUMMARY | 2023-06-18 07:26 | XMS_ITS | Encounter Summary ---
Author Name Unknown Organization [facility] [place] [address] Care Team Providers Care Principal Architect Name Role Phone Jake Villegas M.D. Primary Care Provider [phone] Encounter Details Date Type Department Care Team (Late st Contact Info) Description 11/11/2022 Orders Only [facility] Jake Villegas M.D. [address] [place] [phone] Social History Tobacco Use Types Packs/Day Years [...] Total Score: 0 06/10/19 18 11:42 AM SPECIAL WEAPONS UNIT OFFICER documented as of this encounter Care Teams Principal Architect Relationship Specialty Start Date End Date Jake Villegas M.D. [address] [place] [address] PCP - General 06/14/20 12/24/22 documented as of this encounter
--- OUTSIDE RECORDS SUMMARY | 2023-06-18 07:26 | XMS_ITS | Encounter Summary ---
Author Name Unknown Organization [facility] [place] [address] Care Team Providers Care Pipe Organ Builder Name Role Phone Elsewhere, Pcp Primary Care Provider Unavailabl e Encounter Details Date Type Department Care Team ( Contact Info) Description 12/25/2022 Clinical Communication Department of Family Medicine, [facility], in [place], [place] [address] [place] [address] Jacquie Estrada RJoshuaN. Social History Tobacco Use [...] 3:23 PM CDT Patient established care with [facility], Hyacinth Looney, Please PCP elsewhere. documented in this encounter Plan of Treatment Not on file documented as of this encounter Visit Diagnoses Not on filedocumented in this encounter Additional Health Concerns Assessment Noted Time PHQ-9 Depression Total Score: 0 06/10/19 18 11:42 AM RESCUE INSTRUCTOR documented as of this encounter Care Teams Pipe Organ Builder Relationship Specialty Start Date End Date Elsewhere, Pcp PCP - General Internal Medicine 12/25/22 documented as of this encounter
--- OUTSIDE RECORDS SUMMARY | 2023-06-18 07:26 | XMS_ITS | Encounter Summary ---
Author Name Unknown Organization [facility] [place] [place] [address] Care Team Providers Care Sap Security Architect Name Role Phone Elsewhere, Pcp Primary Care Provider Alice e Encounter Details Date Type Department Care Team (Late Contact Info) Description 08/24/2014 Historical Ophthalmology [facility] Stephen Jimenez Jr., M.D. [address] [place] [address] Social History Tobacco Use Types [...] exam HISTORY OF PRESENT ILLNESS Some trouble [facility] night driving IMPRESSION / REPORT / PLAN A) Myopia, unchanged P) glasses at night only if desired. RTO 1-2 year CDM Reports - EYEGEN Id: [id number] Status: Fnl documented in this encounter Plan of Treatment Not on file documented as of this encounter Visit Diagnoses Not on filedocumented in this encounter Additional Health Concerns Infection Onset Date Last Indicated Resolved Time COVID19 Pending 04/11/2020 04/11/2020 04/11/2020 2 :39 PM DIGITAL CARTOGRAPHER COVID19 Pending 04/11/2020 04/11/2020 04/12/2020 4 :05 AM DIGITAL CARTOGRAPHER COVID19 Pending 07/24/2020 07/24/2020 07/25/2020 4 :38 AM CDT COVID19 07/24/2020 07/24/2020 08/13/2020 4:46 AM CDT documented as of this encounter Care Teams Sap Security Architect Relationship Specialty Start Date End Date Elsewhere, Pcp PCP - General Internal Medicine 12/25/22 documented as of this encounter
== END 2023-06-18 07:23 | disposition home or self-care (01) ==
LOC: US 07:24
PROVIDERS: PCP Family Medicine; Visit Provider Obstetrics & Gynecology
DX: O24.419 Gestational diabetes mellitus in pregnancy, unspecified control (principal); Z3A.32 32 weeks gestation of pregnancy
CPT/HCPCS: 76816

== ENCOUNTER 2023-07-17 14:03 | Outpatient (CLI) | payer OTHER, SELFPAY ==
--- NOTE | 2023-07-17 14:00 | US_ITS ---
Patient: INES SAL Facility:?[facility] RIS Patient ID:?[id number] Site Patient ID:?[id number]. Site :?1995 Study:?US-OB Pelvis GROWTH-07/17/2023 2:35:39 PM Ordering Physician:KOKI TURCIOS Final Report: INDICATION: Gestational diabetes. Assess growth. TECHNIQUE: Ultrasound OB pelvis transabdominal. Real time jordan scale imaging of the fetus was performed. COMPARISON: 06/18/2023 FINDINGS: Sonographic imaging demonstrates a single living intrauterine gestation. Fetus demonstrates a regular cardiac rate of 139 beats per minute. Fetus has a vertex orientation. The placenta lies anteriorly without evidence of placenta previa. Amniotic fluid volume appears normal. Single deepest vertical pocket: 7.2 cm. Cervix was not visualized. The composite ultrasound gestational age is calculated at 36 weeks 1 day with an estimated sonographic due date of 08/13/2023. The estimated weight is 2686 grams which lies at the 39%. The following biometric measurements were obtained: Biparietal diameter: 9 CM, 36 weeks 2 days, 70th percentile Head circumference: 33 CM, 37 weeks 4 days, 61st percentile Abdominal circumference: 31 CM, 34 weeks 6 days, 29th percentile Femur length: 7 CM, 35 weeks 5 days, 40th percentile IMPRESSION: 1. Single living intrauterine gestation. Composite ultrasound gestational age of 36 weeks 1 day with estimated sonographic due date of 08/13/2023. 2. Estimated weight at 39 percent. Dictated by Elmer Cardona MD @ 07/19/2023 11:59:32 AM Signed by:?Elmer Cardona MD @07/19/2023 11:59:32 AM (Electronic Signature)
== END 2023-07-17 14:04 | disposition home or self-care (01) ==
LOC: US 14:03
PROVIDERS: PCP Family Medicine; Visit Provider Obstetrics & Gynecology
DX: O24.419 Gestational diabetes mellitus in pregnancy, unspecified control (principal); Z3A.36 36 weeks gestation of pregnancy
CPT/HCPCS: 76816; 87081; 87653

== ENCOUNTER 2023-08-15 22:39 | Inpatient (IN) | payer OTHER, SELFPAY ==
--- OUTSIDE RECORDS SUMMARY | 2023-08-15 20:46 | XMS_ITS | Clinical Summary ---
Author Name Unknown Organization [facility] [place] [address] Care Team Providers Care Data Warehousing Specialist Name Role Phone Elsewhere, Pcp Primary Care Provider Unavailabl e Source Comments Patient records contain information from all sites at [facility]. For routine questions regarding patient records, call [phone] during business hours, M-F 8:00 AM - 5:00 PM Central Time. Record requests for emergency care only can be directed to [phone] at any time.[facility] Allergies Active Allergy Reactions Criticality Noted Date [...] 37 ??C (98.6 ??F) 03/29/2018 2:00 PM CABINET FINISHER Respiratory Rate 16 03/29/2018 2:00 PM CABINET FINISHER Oxygen Saturation 100% 01/04/2022 6:36 PM CDT Inhaled Oxygen Concentration - - Weight 91 kg (200 lb 9.9 oz) 01/04/2022 6:44 PM CDT Height 171 cm (5' 7.32) 03/29/2018 2:00 PM CABINET FINISHER Body Mass Index 31.12 03/29/2018 2:00 PM CABINET FINISHER Plan of Treatment Health Maintenance Due Date [...] on patient's age to complete this topic Procedures Procedure Name Priority Date/Time Associated Diagnosis Comments PATHOLOGY GINNER HELPER CYTOLOGY Routine 04/04/2016 12:00 AM CABINET FINISHER from Last 3 Months or Most Recently Relevant to Health Maintenance Results * Pathology GINNER HELPER Cytology (04/04/2016 12:00 AM CABINET FINISHER) 04/04/2016 Narrative [facility] - 04/09/2016 12:26 PM CABINET FINISHER [facility] in [address] [place] [address] ??[phone] Patient Name: CHANDRIKA ESQUEDA Collected: 04/04/2016 Address: [facility]/Zip: [address] [place], [place] ??[id number] Received: Reported: 04/07/2016 04/09/2016 Soc. Sec. #: ?/Age/Sex 1995 (Age: 21) ??F Physician(s): CORIN TRUJILLO MD Copy To: ? [facility] ??[id number] [address] [facility], ??[place] ??[id number] CYTOPATHOLOGY GINNER HELPER REPORT FINAL CYTOLOGIC DIAGNOSIS Pap Smear VCE - ThinPrep: NEGATIVE FOR INTRAEPITHELIAL LESION OR MALIGNANCY SPARSE TO NO ENDOCERVICAL COMPONENT PRESENT. SATISFACTORY SPECIMEN FOR EVALUATION. Electronically Signed Out By amb04/09/[address](ASCP) NIMISHA Moore CT(ASCP) The Pap test is a screening procedure and, as such, is subject to both false positive and false negative results as evidenced by published data. ??It is not a diagnostic test and results should be interpreted in the context of the patient's history and other clinical findings. ??Obtaining periodic Pap tests may help to minimize the consequences of any false negatives that may occur. SPECIMEN(S) RECEIVED: Pap Smear VCE - ThinPrep CLINICAL HISTORY: CONTROL Date of Last Menstrual Period: EARLY MARCH Hormonal History: No hormonal therapy Other Clinical Conditions: HPV TYPING REQUESTED: IF ASCUS Zaynab Roberts M.D. LAB PAP COPATH ORDERABLES [facility] from Last 3 Months or Most Recently Relevant to Health Maintenance Care Teams Data Warehousing Specialist Relationship Specialty Start Date End Date Elsewhere, Pcp PCP - General Internal Medicine 12/25/22
--- OUTSIDE RECORDS SUMMARY | 2023-08-15 20:46 | XMS_ITS | Referral Summary ---
Author Name Unknown Organization [facility] [place] [address] Care Team Providers Care Tank Riveter Name Role Phone Elsewhere, Pcp Primary Care Provider Unavailabl e Source Comments Patient records contain information from all sites at [facility]. For routine questions regarding patient records, call [phone] during business hours, M-F 8:00 AM - 5:00 PM Central Time. Record requests for emergency care only can be directed to [phone] at any time.[facility] Allergies Active Allergy Reactions Criticality Noted [...] 37 ??C (98.6 ??F) 03/29/2018 2:00 PM DISTRICT CUSTOMS DIRECTOR Respiratory Rate 16 03/29/2018 2:00 PM DISTRICT CUSTOMS DIRECTOR Oxygen Saturation 100% 01/04/2022 6:36 PM CDT Inhaled Oxygen Concentration - - Weight 91 kg (200 lb 9.9 oz) 01/04/2022 6:44 PM CDT Height 171 cm (5' 7.32) 03/29/2018 2:00 PM DISTRICT CUSTOMS DIRECTOR Body Mass Index 31.12 03/29/2018 2:00 PM DISTRICT CUSTOMS DIRECTOR Plan of Treatment Not on file Procedures Procedure Name Priority Date/Time Associated Diagnosis Comments PATHOLOGY STRATEGIC SOURCING CONSULTANT CYTOLOGY Routine 04/04/2016 12:00 AM DISTRICT CUSTOMS DIRECTOR from Last 3 Months or Most Recently Relevant to Health Maintenance Results * Pathology STRATEGIC SOURCING CONSULTANT Cytology (04/04/2016 12:00 AM DISTRICT CUSTOMS DIRECTOR) 04/04/2016 Narrative [facility] - 04/09/2016 12:26 PM DISTRICT CUSTOMS DIRECTOR [facility] [place] [address] [place], [place] ??[phone] Patient Name: CHANDRIKA ESQUEDA Collected: 04/04/2016 Address: [facility]/State/Zip: [address] [place], [place] ??[id number] Received: Reported: 04/07/2016 04/09/2016 Soc. Sec. #: ?/Age/Sex 1995 (Age: 21) ??F Physician(s): CORIN TRUJILLO MD Copy To: ? [facility] ??[id number] [address] [place] [address], ??[place] ??[id number] CYTOPATHOLOGY STRATEGIC SOURCING CONSULTANT REPORT FINAL CYTOLOGIC DIAGNOSIS Pap Smear VCE - ThinPrep: NEGATIVE FOR INTRAEPITHELIAL LESION OR MALIGNANCY SPARSE TO NO ENDOCERVICAL COMPONENT PRESENT. SATISFACTORY SPECIMEN FOR EVALUATION. Electronically Signed Out By 04/09/[address](ASCP) AJ Teresa CT(ASCP) The Pap test is a screening [...] Zaynab Roberts M.D. LAB PAP COPATH ORDERABLES [facility] LAB from Last 3 Months or Most Recently Relevant to Health Maintenance Care Teams Tank Riveter Relationship Specialty Start Date End Date Elsewhere, Pcp PCP - General Internal Medicine 12/25/22
--- OUTSIDE RECORDS SUMMARY | 2023-08-15 20:46 | XMS_ITS | Clinical Summary ---
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 RENAL TIME [facility], 07/17/2023 06/18/2023 Orders Only [facility] Scanner 1 scan: (1-Ord) [facility], OB , 06/18/2023 from Last 3 Months Immunizations Name Administration Dates Next Due COVID-19 vaccine (Pfizer-Bio NTech 30mcg/0.3mL) 12YO+ BIVALENT PF, MDV 05/08/2022 COVID-19 vaccine (Pfizer-Bio NTech 30mcg/0.3mL) PF, MDV 05/02/2021 DTaP 02/01/1999,07/02/1995 [...] Comments Blood Pressure 127/82 05/08/2022 8:31 AM MILITARY PAY TECHNICIAN Pulse 92 05/08/2022 8:31 AM MILITARY PAY TECHNICIAN Temperature 36.9 ??C (98.4 ??F) 05/06/2015 12:[address] Respiratory Rate 18 05/06/2015 12:03 AM MILITARY PAY TECHNICIAN Oxygen Saturation 98% 05/08/2022 8:31 AM MILITARY PAY TECHNICIAN Inhaled Oxygen Concentration - - Weight 87.5 kg (193 lb) 05/08/2022 8:31 AM MILITARY PAY TECHNICIAN Height 171.3 cm (5' 7.44) 05/02/2021 8:59 AM CS T Body Mass Index 29.83 05/02/2021 8:59 AM MILITARY PAY TECHNICIAN Plan of Treatment Health Maintenance Due Date Last Done Comments HIV for age 15-65 2009 Hepatitis C screening for age 18-79 2012 BMI (ht and wt on same day) for age 18+ 05/02/2022 05/02/2021 COVID-19 vaccine series ( season) 2023 05/08/2022, 05/02/2021 Influenza for age 9-49 01/03/2024 , 05/02/2021, 04/07/2017, Additional history exists Depression [...] Procedure Name Priority Date/Time Associated Diagnosis Comments SCAN-ULTRASOUND REPORT 07/17/2023 12:00 AM CDT SCAN-ULTRASOUND REPORT 06/18/2023 12:00 AM MILITARY PAY TECHNICIAN BEAM WORKER THIN PREP PAP SCREEN IMAGED Routine 05/02/2021 9:46 AM MILITARY PAY TECHNICIAN Screening for cervical cancer from Last 3 Months or Most Recently Relevant to Health Maintenance Results * SCAN-ULTRASOUND REPORT (07/17/2023 12:00 AM CDT) Only the most recent of2 resultswithin the time period is included. Anatomical Region Laterality Modality Other Scanner OTHER * BEAM WORKER THIN PREP PAP SCREEN IMAGED [[id number]] (05/02/2021 9:46 AM MILITARY PAY TECHNICIAN) Case Report Gynecologic Cytology Report ? Case: [id number] ? Authorizing Provider: ??Hyacinth Looney DO ?Collected: ? 05/02/2021 0946 ? Ordering Location: ? [facility] ?? Received: ?05/02/2021 1114 ? Clinic ? First Screen: ?Amalia Donnelly ? Specimen: ?BEAM WORKER ThinPrep Vial Screening, Cervical ? 05/14/2021 6:55 PM MILITARY PAY TECHNICIAN [facility] INTERPRETATION/ RESULT NEGATIVE FOR INTRAEPITHELIAL LESION OR MALIGNANCY (NIL) (none) 05/14/2021 6:55 PM MILITARY PAY TECHNICIAN [facility] IMEN ADEQUACY Satisfactory for evaluation Endocervical component present 05/14/2021 6:55 PM MILITARY PAY TECHNICIAN [facility] HPV REQUEST HPV if ASCUS 05/14/2021 6:55 PM MILITARY PAY TECHNICIAN [facility] Date of LMP 04/04/21 05/14/2021 6:55 PM MILITARY PAY TECHNICIAN [facility] Last Pap Date unknown 05/14/2021 6:55 PM MILITARY PAY TECHNICIAN [facility] Last Pap Result NIL 6:55 PM MILITARY PAY TECHNICIAN [facility] Abnormal Pap or Ripley Bx in last 5 years No 05/14/2021 6:55 PM MILITARY PAY TECHNICIAN [facility] Menstrual Status Regular Periods 05/14/2021 6:55 PM MILITARY PAY TECHNICIAN [facility] Ripley Bx Done Today No 05/14/2021 6:55 PM MILITARY PAY TECHNICIAN [facility] Additional Information None given 05/14/2021 6:55 PM MILITARY PAY TECHNICIAN [facility] Comment: Cytology is screened at [facility] - [address], [place] [address] and [facility] - [address], [place] [address] and [facility] - [address], [place] [address] Interpreted at [facility] - [address], [place] [address] Automated Review Successful 05/14/2021 6:55 PM MILITARY PAY TECHNICIAN [facility] Comment:Specimen processed s uccessfully by automated speech and hearing clinic director device, [employer] System, [employer] Note The pap test is a screening technique, not a diagnostic procedure. It is used primarily to screen for squamous cancers and precursor lesions. Published studies have shown that it is subject to both false negative and false positive results. The pap test should not be used as the sole means to diagnose or exclude pre-malignant and malignant lesions. 05/14/2021 6:55 PM MILITARY PAY TECHNICIAN [facility] Other (Cervical) Non-Blood / Unknown 05/02/2021 9:46 AM MILITARY PAY TECHNICIAN 05/02/2021 11:14 AM MILITARY PAY TECHNICIAN Hyacinth Looney DO PATHOLOGY/CYTOLOGY [facility] [address] [place] [address], [place] from Last 3 Months or Most Recently Relevant to Health Maintenance Care Teams Nurse Orthopaedic Relationship Specialty Start Date End Date Hyacinth Looney [place] [address] PCP - General Family Practice 05/08/22
--- OUTSIDE RECORDS SUMMARY | 2023-08-15 20:46 | XMS_ITS ---
Author Name Unknown Organization [facility] [place] [address] Care Team Providers Care Railcar Brake Operator Name Role Phone Unavailable Unavailable Unavailable Surgery Details Not on file Complications Check Surgery Details section. Procedure Estimated Blood Loss Check Surgery Details section. Procedure Findings Check Surgery Details section. Procedure Specimens Taken Check Surgery Details section.
--- OUTSIDE RECORDS SUMMARY | 2023-08-15 20:46 | XMS_ITS | Encounter Summary ---
Author Name Unknown Organization [facility] [place] [address] Care Team Providers Care Chef Teacher Name Role Phone Elsewhere, Pcp Primary Care Provider Caseabl e Encounter Details Date Type Department Care Team (Late Contact Info) Description 08/24/2014 Historical Ophthalmology [facility] Stephen Jimenez Jr., M.D. [address] [place] [address] Social History Tobacco Use Types [...] exam HISTORY OF PRESENT ILLNESS Some trouble [facility] night driving IMPRESSION / REPORT / PLAN A) Myopia, unchanged P) glasses at night only if desired. RTO 1-2 year CDM Reports - EYEGEN Id: [id number] Status: Fnl documented in this encounter Plan of Treatment Not on file documented as of this encounter Visit Diagnoses Not on filedocumented in this encounter Additional Health Concerns Infection Onset Date Last Indicated Resolved Time COVID19 Pending 04/11/2020 04/11/2020 04/11/2020 2 :39 PM AUTOMATIC CORN GRINDER OPERATOR COVID19 Pending 04/11/2020 04/11/2020 04/12/2020 4 :05 AM AUTOMATIC CORN GRINDER OPERATOR COVID19 Pending 07/24/2020 07/24/2020 07/25/2020 4 :38 AM CDT COVID19 07/24/2020 07/24/2020 08/13/2020 4:46 AM CDT documented as of this encounter Care Teams Chef Teacher Relationship Specialty Start Date End Date Elsewhere, Pcp PCP - General Internal Medicine 12/25/22 documented as of this encounter
[2023-08-15 20:58] VITALS: PULSE 73; TEMP 36.4; O2SAT 99
[2023-08-15 21:03] VITALS: PULSE 77; O2SAT 99
[2023-08-15 21:23] VITALS: BP 127/76; PULSE 55
[2023-08-15 23:04] VITALS: BMI 33.8
[2023-08-15 23:59] VITALS: BP 118/70; PULSE 51
[2023-08-16] VITALS (103 sets, daily range): BP systolic 94–141; BP diastolic 51–77; PULSE 52–141; RESP 18; TEMP 36.4–36.7; O2SAT 82–100
[2023-08-16] MEDS: LACTATED RINGERS 1000 ML 1,000 ML 900 ML IV (00:33)
[2023-08-16 00:57] LABS: Basophils Percent Auto 0.1 % (0.0-3.0); Eosinophils Percent Auto 0.2 % (0.0-7.0); Hematocrit 34.3 % (33.0-51.0); Hemoglobin* 11.7 gm/dL (12.0-16.0); Immature Granulocytes Pct Auto 1.3 %; Lymphocytes Percent Auto 12.3 % (20-44); Mean Corpuscular HGB Conc 34 gm/dL (32-36); Mean Corpuscular Hemoglobin 31 pg (26-34); Mean Corpuscular Volume 90 fL (80-100); Monocytes Percent Auto 6.5 % (0.0-11.0); Neutrophils Percent Auto 79.6 % (42.0-72.0); Platelet Count* 182 K/uL (140-440); RDW Coefficient of Variation % 12.8 % (11.5-15.5); Red Blood Count 3.82 m/uL (4.00-5.20); White Blood Count* 13.43 K/uL (4.50-11.00)
[2023-08-16] MEDS: LACTATED RINGERS 1000 ML 1,000 ML 500 ML IV (01:30)
[2023-08-16] MEDS: fentaNYL 100 MCG/2 ML inj 50 MCG IVP (01:43)
[2023-08-16] MEDS: PHENYLEPHRINE 100 MCG/ML SYRINGE IVP (02:10)
[2023-08-16] MEDS: ROPIVACAINE 0.2% 100 ml 100 ML 12 MG EPIDURAL (02:30)
[2023-08-16] MEDS: fentaNYL 100 MCG/2 ML inj 50 MCG IV (03:06)
[2023-08-16] MEDS: ePHEDrine sulfate 5 MG/ML inj 10 MG IVP (04:15)
--- NOTE | 2023-08-16 04:15 | P.ANBPRC_ITS ---
[facility] Medical History Low lying placenta nos or without hemorrhage, second trimester ?O44.42 - Low lying placenta NOS or without hemorrhage, second trimester (ICD-10) Infertility management ?Z31.9 - Encounter for procreative management, unspecified (ICD-10) Surgical History History of tonsillectomy and adenoidectomy ?Z90.89 - Acquired absence of other organs (ICD-10) Family History Father Pancreatic carcinoma Sister Leukemia Social History Narrative: History of blood transfusion: No. 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 Marital status: . Yarsani/cultural needs: no. Chemical or radiation exposure: no. Pre- tobacco use: no. Pre- alcohol use: Social. Current tobacco use: no. Current alcohol use:no. Recreational drug use: no. Dietary restrictions: Fructose intolerance Blood transfusion acceptable in an emergency: yes. FAMILY AND GENETIC HISTORY: Please see problem list. Denies history of recurrent loss, defects, inheritable disease PSYCHOSOCIAL HISTORY: History of depression or currently depressed: no. Current or past physical, emotional, or sexual mistreatment: no. Problems that will make it hard to make it to appointments: no. What is your current living situation?: I presently have a place to live Problems where you live: no known problems In the past 12 months, utilities in danger of being shut off: no In past 12 months, lack of transportation kept you from medical appts, meetings, work, or getting things needed for daily living: no In the past 12 mos, have been you worried that your food would run out before you had money to buy more?: never true In the past 12 mos, the food you bought just didn't last and you didn't have money to buy more?: never true Highest level of school completed/degree received: Master's degree Smoking Status: Never smoker How often do you have a drink containing alcohol: monthly or less AUDIT-C Alcohol total score: 1 Non-prescribed substance use: denies use Are you now , , , , never or living with a partner: Social isolation score (0-1 are the most socially isolated patients): 1 How often does anyone, including family, friends and others, physically hurt you : never How often does anyone, including family, friends and others, insult or talk down to you: never How often does anyone, including family, friends and others, threaten you with harm: never How often does anyone, including family, friends and others, scream or curse at you: never Little interest or pleasure in doing things: not at all Feeling down, depressed, or hopeless: not at all Meds Home Medications and Allergies Home Medications Medication Instructions Recorded Confirmed Type prenat.vits,bharat,dur-uafl-ktssa 1 tab PO QDAY 11/27/21 08/15/23 History cholecalciferol (vitamin D3) 50 50 mcg PO QDAY 01/16/23 08/15/23 History mcg (2,000 unit) capsule pyridoxine (vitamin B6) 25 mg 25 mg PO TID 01/16/23 08/15/23 History tablet aspirin 81 mg capsule 81 mg PO QDAY 05/08/23 08/15/23 History magnesium 200 mg tablet 200 mg PO QDAY 05/08/23 08/15/23 History Allergies Allergy/AdvReac Type Severity Reaction Status Date / Time amoxicillin Allergy Unknown Verified 08/12/23 11:33 fructose AdvReac Intermediate malabsorbti Uncoded 08/12/23 11:33 on. Results Vital Signs Vital Signs: Last Vital Signs Temp 97.5 F L 08/15/23 20:58 Pulse 67 08/16/23 04:13 BP 97/51 L 08/16/23 04:13 Pulse Ox 100 08/16/23 04:14 Weight: 97.976 kg Height: 170.18 cm Anesthesia Procedures Epidural Insertion Patient Location: OB Start Time: 03:30 Stop Time: 04:30 Start Date: 08/16/23 Stop Date: 08/16/23 Reason for Block: procedure for pain Patient Position: sitting Performed By: Duc Alexander Preanesthetic Checklist: IV checked, risks and benefits discussed, surgical consent, monitors and equipment checked, pre-op evaluation, timeout performed and anesthesia consent Prep: chlorhexidine gluconate Monitoring: blood pressure monitoring, continuous pulse oximetry and heart rate Approach: midline Vertebral Space: lumbar (1-5) Epidural Technique: MARY saline Needle Type: Tuohy needle Injection Technique: continuous catheter Needle gauge: 17 Needle Length (cm): 10 cm Needle Insertion Depth (cm): 6 Catheter Gauge: 19 Catheter Type: multi-orifice Catheter at skin depth (cm): 12 Test Dose Result: negative and lidocaine 1.5% with epinephrine 1 to 200,000
[2023-08-16 04:30] LABS: Slide Review Reflex No
[2023-08-16 05:05] LABS: Glucose* 78 mg/dL (60-115)
[2023-08-16] MEDS: LACTATED RINGERS 1000 ML 1,000 ML 125 ML IV (07:27)
[2023-08-16] MEDS: ONDANSETRON 2 MG/ML inj 4 MG IV (07:32)
[2023-08-16] MEDS: fentaNYL 100 MCG/2 ML inj EPIDURAL (07:55)
[2023-08-16] MEDS: LIDOCAINE 2% (PF) 5 ML VIAL 3 ML EPIDURAL (08:37)
[2023-08-16] MEDS: OXYTOCIN 30 unit/500 ML in NS 30 UNIT/500 ML BAG 300 UNIT IVPB (09:33)
[2023-08-16] MEDS: LIDOCAINE 1 % PF 30 ML INJECTION (09:55)
--- NOTE | 2023-08-16 10:25 | P.LDBA_ITS ---
Subjective History of Present Illness Time Seen by Provider: 22:00 Date Seen: 08/15/23 Narrative: Chandrika is being admitted to Labor and Delivery for spontaneous onset of labor. She is a 28 year old at 40 weeks and 0 days gestation. Her full history and physical was dictated by Dr. Andrews on 07/23/2023. Please see this for details. Contractions started at approximately 8:00 p.m. on the day of admission. Specific Issues/Plans Spouse: Jono (Nahomi Mosquera: L&D RN is his mom). Baby: [place] gender 1. IUI + letrozole conception for unexplained infertility. Conceived after 2nd cycle. 2. Obesity, BMI 31.0 -Hemoglobin A1c: 5.2% -Aspirin 81 mg -05/22/2023: 1hr GTT: 160 -3hr GTT: 87, 191, 158, 81 3. GERD, suboptimally managed with famotidine BID. -Omeprazole 20 mg daily prescribed 02/11/23 -Omeprozole 40mg daily prescribed 04/10/2023 4. Paternal side nephew with congenital cardiac anomaly 5. Family history of blood clots -Patients sister has had multiple, MSK cancer? diagnosed at age 10 -Mother tested negative for Factor V- uncertain why she tested, no history of blood clots 6. Anterior low-lying placenta at 21w6d, placental cord insert not identified. -Repeat US at 26 weeks: Anterior, 2.2 cm from the os. 7. Mild anemia - 05/22/2023 hgb = 10.9 - Recommended OTC ferrous sulfate QOD with food. - 34 wk hgb: 10.6 8. Gestational DM A1 - Outreach Professional: 06/02/23 - Growth scan Q4 week starting at 32 weeks: BPD 82%, HC 80%, AC 58%, FL 28%. EFW 53% - Growth scan at 36 weeks: EFW 5# 15 oz or 2686 g (39%), BPD 70%, HC 61%, AC 29%, FL 40%, SDP 7.2 cm - Recommended delivery: 39-40.6 weeks Flu Vaccine: 04/10/23 Covid Booster: Considering Tdap: 06/05/23 H&P: Dr. Andrews on 07/23/23 OB - Problem Based A/P Additional Plan (1) Spontaneous onset of labor: Status: Acute Plan 1. Admit to Labor and delivery. 2. Patient is planning an epidural for labor analgesia. 3. GBS negative. 4. Rh positive blood type. OB Exam Physical Exam Vital signs: Temp Pulse BP Pulse Ox 97.7 F 69 115/71 89 08/16/23 07:45 08/16/23 10:15 08/16/23 10:15 08/16/23 04:59 Narrative: GENERAL APPEARANCE: Pleasant, [race], well-groomed woman in no acute distress. VITAL SIGNS: as noted in nursing notes HEAD: Normocephalic, atraumatic. THYROID: no masses, nodularity, tenderness or enlargement. LUNGS: Clear to auscultation bilaterally without wheezes, rales or rhonchi. HEART: Regular rate and rhythm with normal S1 and S2. No gallop, rub or murmur. ABDOMEN: Gravid. Soft, nontender, nondistended, with normal bowels sounds throughout. EFM: Baseline 130s, accelerations present. Decelerations absent. Reactive, category 1 TOCO: Every 5 minutes PRESENTATION: Vertex by Lemuel's maneuvers. SVE per nursin.5 cm/ 60%/ -2/soft/mid. Mejias score: 7 EXTREMITIES: No cyanosis, clubbing, or edema. No varicosities. NEUROLOGIC: Normal gait and balance. Normal deep tendon reflexes at bilateral patella 2+/2, equal without clonus. PSYCHIATRIC: alert and oriented x3. Normal speech pattern, eye contact and affect. SKIN: Warm, dry, and well perfused. Good turgor. No lesions, nodules or rashes.
--- NOTE | 2023-08-16 10:28 | W.PM.VAGDEL1 ---
Procedure Delivery date: 08/16/23 Procedure Done: Global Procedure Details: Chandrika is a 28 year-old G 1 P 0 now 1 admitted on 08/15/2023 at 10:30 p.m. at 40 Weeks, 0 Days gestation for spontaneous onset of labor. S from occurred at 0752 on 08/16/2023 with click fluid. Labor Analgesia: Epidural Pitocin: No Labor onset: 08/15/2023 at 10:00 p.m.. Complete: 08/16/2023 at 8:33 a.m.. Pushin08/16/2023 at 8:46 a.m.. heart tones during second stage were: Category 2 with sporadic variable decelerations to the 110s during contractions with moderate variability between contractions, reassuring. At 09:32 a.m. viable male delivered in vertex direct OA presentation over second-degree vaginal laceration and bilateral first-degree labial lacerations via spontaneous vaginal delivery. The was placed on maternal abdomen. Cord was clamped and cut after a 60 second delay. Nose and mouth were bulb suctioned. Infant weight pending. a at 1 minute and 9 at 5 minutes. Shoulder dystocia: No. Nuchal cord: No Placenta delivered spontaneously and complete at 09:42 a.m. with a 3 vessel cord. Laceration(s): Second-degree vaginal laceration was repaired any running locked manner with 3-0 Vicryl suture. The bilateral labial lacerations were repaired in a running manner with 4-0 Vicryl suture. Blood loss: 250 mL. Blood loss measurement type: Quantitative Sponge and needles counts are correct. Specimen: Placenta due to GDM Mother and were stable after delivery. 's name: Pending The patient is planning on breast feeding. Events: GDMA1 Intrapartal Events: None Delivery monitor: external FHT Route of delivery: Laceration description: Vaginal - 2nd Degree Delivery repair: Vicryl Anesthesia type: Epidural Disposition: floor
[2023-08-16] MEDS: IBUPROFEN 600 MG TABLET PO ×2 (11:41→17:44)
--- NOTE | 2023-08-16 15:06 | PM.ANPOST ---
Post Anesthesia Note Post Anesthesia Note Patient seen: Inpatient Respiratory Status: adequate Cardiovascular Status: adequate Mental Status: baseline Pain: adequate Temp: baseline Anesthetic awareness: N/A Complications: none Follow care: none
[2023-08-16] MEDS: ACETAMINOPHEN 500 MG TABLET 1000 MG PO ×2 (15:31→21:40)
[2023-08-17] MEDS: IBUPROFEN 600 MG TABLET PO ×4 (02:40→21:28)
[2023-08-17 04:30] VITALS: BP 103/64; PULSE 71; RESP 18; TEMP 36.6
[2023-08-17 06:39] LABS: Hemoglobin* 9.5 gm/dL (12.0-16.0)
[2023-08-17] MEDS: ACETAMINOPHEN 500 MG TABLET 1000 MG PO ×3 (06:42→18:32)
[2023-08-17 11:10] VITALS: BP 98/60; PULSE 71; RESP 18; TEMP 36.6; O2SAT 97
[2023-08-17 15:23] VITALS: BP 91/52; PULSE 71; RESP 16; TEMP 36.5; O2SAT 97
--- NOTE | 2023-08-17 17:10 | PM.OBPNVD1 ---
OB - PN:Subj Subjective Date Seen: 08/17/23 Narrative: Chandrika is a 28 y.o. who was admitted to L & D for spontaneous onset of labr. ?She had an uncomplicated NVD.?The patient feels well. ?The pain is well controlled with current medications. ?She has no new complaints. ?She is breast feeding and reports things are going well.? the patient has done well.? Vitals have been stable.? She has remained afebrile.? Has a good appetite, is tolerating a general diet. ?She is voiding without difficulty.? She is passing gas and has not had a bowel movement.? She is ambulating and denies any dizziness.? Has Small amount of rubra lochia. OB - PN: Obj Exam Physical Exam: Vital signs: Temp Pulse Resp BP Pulse Ox O2 Del Method 97.7 F 71 16 91/52 L 97 Room Air 08/17/23 15:23 08/17/23 15:23 08/17/23 15:23 08/17/23 15:23 08/17/23 15:23 08/17/23 15:23 Narrative: GENERAL APPEARANCE:? normal affect, alert, no distress MOOD:? appropriate CHEST:? clear to auscultation HEART:? regular rate and rhythm ABDOMEN:? soft, non-tender the uterine fundus is 1 below Umbilicus, Midline and is appropriate for the stage of recovery. PERINEUM:? mild edema of the perineum, there is a vaginal Laceration,?2nd degree, that is healing well. EXTREMITIES:? normal and no edema OB - PN: Obj Data Labs Labs: Laboratory Results - last 24 hr 08/17/23 06:18 Hgb 9.5 L OB - PN: A/P Delivery Assessment and Plan (1) care and examination immediately after delivery: Status: Acute (2) Lactating mother: Status: Acute Plan day: 1 Plan: routine care Comments: Lactating mother, may see if desired. Hgb 9.5. Iron started for tomorrow morning to take every other day. GDM, planning 2 hour glucose test while inpatient tomorrow morning. Anticipate discharge tomorrow.
[2023-08-17 20:14] VITALS: BP 105/69; PULSE 71; RESP 16; TEMP 36.6; O2SAT 98
[2023-08-18] VITALS: BP 97/61; PULSE 71; RESP 18; TEMP 36.5; O2SAT 97
[2023-08-18] MEDS: ACETAMINOPHEN 500 MG TABLET 1000 MG PO ×2 (00:08→07:49)
[2023-08-18] MEDS: IBUPROFEN 600 MG TABLET PO ×2 (03:42→10:40)
--- NOTE | 2023-08-18 07:20 | P.DS_ITS ---
DS: Providers Provider Date Seen: 08/18/23 Date of admission: 08/15/23 22:39 Primary care physician: Hyacinth Looney DO Admitting Clinician: Kelsie Fernandez MD Attending Physician on discharge: Anuja Lozoya CNM Date of Discharge: 08/18/23 DS: Diagnosis Discharge Diagnosis (1) care and examination immediately after delivery: Status: Acute (2) Lactating mother: Status: Acute (3) Gestational diabetes mellitus (GDM): Status: Acute Exam Narrative: Exam Narrative: VSS, afebrile GENERAL APPEARANCE: ?normal affect, alert, no distress MOOD: ?appropriate HEENT: normocephalic, neck supple, full ROM CHEST: ?Symmetrical chest wall movement. ?Normal respiratory effort. ?Clear to auscultation HEART: ?regular rate and rhythm ABDOMEN: ?soft, non-tender. Uterine fundus is firm, at Umbilicus, Midline and is appropriate for the stage of recovery. ?Bowel sounds present. PERINEUM: ?mild edema of the perineum, there is a 2nd degree laceration that is healing well. EXTREMITIES: ?normal and no edema Const: Vital Signs, click to edit/add: Vital Signs - 24 hr 08/17/23 11:10 08/17/23 15:23 08/17/23 20:14 Temperature 97.8 F 97.7 F 98 F Pulse Rate [Pulse Oximeter] 71 71 71 Respiratory Rate 18 16 16 Blood Pressure [Le ft Arm] 98/60 91/52 L 105/69 Pulse Oximetry 97 97 98 Oxygen Delivery Me thod Room Air Room Air Room Air 08/18/23 00:00 Temperature 97.7 F Pulse Rate [Pulse Oximeter] 71 Respiratory Rate 18 Blood Pressure [Le ft Arm] 97/61 Pulse Oximetry 97 Oxygen Delivery Me thod Room Air Documenting provider has reviewed patient's vital signs: yes OB - DS: Summary Hospital Course Hospital Course: Chandrika is a 28 y.o. who was admitted to [facility] for spontaneous labor. ?She had an uncomplicated NVD.?The patient feels well. ?The pain is well controlled with current medications. ?She has no new complaints. ?She is breast feeding and reports things are going well.? the patient has done well.? Vitals have been stable.? She has remained afebrile.? Has a good appetite, is tolerating a general diet. ?She is voiding without difficulty.? She is passing gas and has not had a bowel movement.? She is ambulating and denies any dizziness.? Has Small amount of rubra lochia. ?She is undecided on what she is planning for prevention. Peripartum Data delivery method: Vaginal Laceration description: Perineal - 2nd Degree complications: none Infant Gender: Male Infant Discharge Plan: Home Status at Discharge Functional status at discharge: independent ambulation Overall status at discharge: patient is progressing back to baseline Time Spent with Patient Time attestation: Total time spent providing and/or coordinating discharge services: Time spent: Less than 30 minutes Discharge Plan Discharge Disposition: Home, Self-Care Date of Admission: 08/15/23 22:39 Attending Provider on Discharge: Anuja Lozoya Primary Care Provider: Hyacinth Looney Condition: Stable Anticipated Discharge Date/Time: 08/18/23 12:00 Discharge Medications: New acetaminophen 500 mg Tablet 1,000 mg PO Q6H PRNQty: 0 0RF ferrous sulfate 325 mg (65 mg iron) Tablet 325 mg PO Q48H Qty: 30 2RF ibuprofen 600 mg Tablet 600 mg PO Q6H PRNQty: 60 0RF Continued prenat.vits,bharat,gkp-iytx-kemcj Tablet 1 tab PO QDAY pyridoxine (vitamin B6) 25 mg tablet 25 mg PO TID cholecalciferol (vitamin D3) 50 mcg (2,000 unit) capsule 50 mcg PO QDAY omeprazole 40 mg capsule,delayed release(DR/EC) 40 mg PO QDAY Qty: 90 1RF magnesium 200 mg tablet 200 mg PO QDAY Discontinued aspirin 81 mg capsule 81 mg PO QDAY (DME) Test Strips Misc See Rx Instructions .MEDSUPPLY Qty: 100 3RF Rx Instructions: Test blood sugar 4 times daily. (DME) lancets Misc See Rx Instructions .MEDSUPPLY Qty: 100 3RF Rx Instructions: Test blood sugar 4 times daily. (DME) Blood Glucose Meter Misc See Rx Instructions .MEDSUPPLY Qty: 1 0RF Rx Instructions: As directed Discharge Orders: Discharge Order (Routine); Ordered 08/18/23 Ordered By: Anuja Lozoya Patient Education: OB Over the Counter Medication Information, OB Vaginal/Breast Feeding Additional Instructions: Discharge instructions were reviewed with the patient including signs and symptoms of infection and home going medications Nothing vaginally for 6 weeks: no tampons or intercourse Off Work or School for 6 weeks 2-week visit: discuss infant feeding concerns, review control options and screen for anxiety/depression. 6-week visit for an annual exam. consultation services are available to all mothers and babies for the first year after delivery.? To make an appointment, please call [phone]. Activity Level: Activity as Tolerated Discharge Diet: Regular Follow Up Appointments: [facility] [Provider Group] Forms: [employer] Info Instructions
--- NOTE | 2023-08-18 07:20 | PM.OBPNVD1 ---
OB - PN: Obj Exam Physical Exam: Vital signs: Temp Pulse Resp BP Pulse Ox O2 Del Method 97.7 F 71 18 97/61 97 Room Air 08/18/23 00:00 08/18/23 00:00 08/18/23 00:00 08/18/23 00:00 08/18/23 00:00 08/18/23 00:00 OB - PN: A/P Delivery Assessment and Plan (1) care and examination immediately after delivery: Status: Acute (2) Lactating mother: Status: Acute
[2023-08-18 07:31] VITALS: BP 99/63; PULSE 71; RESP 18; TEMP 36.5; O2SAT 98
[2023-08-18 07:53] LABS: Glucose Fasting 65 mg/dl (70-95)
[2023-08-18 10:09] LABS: Glucose 2 Hour 126 mg/dl (70-155)
[2023-08-18 16:52] LABS: Rapid Plasma Reagin (RPR) Non Reactive (Non Reactive)
== END 2023-08-18 13:47 | disposition home or self-care (01) | DRG 807 ==
LOC: OB OUT 22:40 → OB 22:40
PROVIDERS: Admitting Provider Obstetrics & Gynecology; PCP Family Medicine; Visit Provider Obstetrics & Gynecology
DX: O24.420 Gestational diabetes mellitus in childbirth, diet controlled (principal); Z37.0 Single live birth; O70.1 Second degree perineal laceration during delivery; Z3A.40 40 weeks gestation of pregnancy; O99.02 Anemia complicating childbirth; D64.9 Anemia, unspecified; O99.214 Obesity complicating childbirth
CPT/HCPCS: 1967; 36415; 82947; 82950; 82962; 85018; 85025; 86592; 86850; 86900; 86901; 88307; A9270; J0665; J2001; J2371; J2405; J2795; J3010; J7120

== ENCOUNTER 2023-08-24 15:04 | Outpatient (CLI) | payer OTHER, SELFPAY ==
--- OUTSIDE RECORDS SUMMARY | 2023-08-24 15:13 | XMS_ITS | Referral Summary ---
Author Name Unknown Organization [facility] [place] [address] Care Team Providers Care Fish Technologist Name Role Phone Elsewhere, Pcp Primary Care Provider Unavailabl e Source Comments Patient records contain information from all sites at [facility]. For routine questions regarding patient records, call [phone] during business hours, M-F 8:00 AM - 5:00 PM Central Time. Record requests for emergency care only can be directed to [phone] at any time.[facility] Allergies Active Allergy Reactions Criticality Noted [...] 37 ??C (98.6 ??F) 03/29/2018 2:00 PM CUTTER GRINDER Respiratory Rate 16 03/29/2018 2:00 PM CUTTER GRINDER Oxygen Saturation 100% 01/04/2022 6:36 PM CDT Inhaled Oxygen Concentration - - Weight 91 kg (200 lb 9.9 oz) 01/04/2022 6:44 PM CDT Height 171 cm (5' 7.32) 03/29/2018 2:00 PM CUTTER GRINDER Body Mass Index 31.12 03/29/2018 2:00 PM CUTTER GRINDER Plan of Treatment Not on file Procedures Procedure Name Priority Date/Time Associated Diagnosis Comments PATHOLOGY API ARCHITECT CYTOLOGY Routine 04/04/2016 12:00 AM CUTTER GRINDER from Last 3 Months or Most Recently Relevant to Health Maintenance Results * Pathology API ARCHITECT Cytology (04/04/2016 12:00 AM CUTTER GRINDER) 04/04/2016 Narrative [facility] LAB - 04/09/2016 12:26 PM CUTTER GRINDER [facility] [place] [address] [place], [place] ??[address] Patient Name: CHANDRIKA ESQUEDA Collected: 04/04/2016 Address: [facility]/State/Zip: [address] [place], [place] ??[id number] Received: Reported: 04/07/2016 04/09/2016 Soc. Sec. #: ?/Age/Sex 1995 (Age: 21) ??F Physician(s): CORIN TRUJLILO MD Copy To: ? [facility] ??[id number] [address] [place] [address], ??[place] ??[address] CYTOPATHOLOGY API ARCHITECT REPORT FINAL CYTOLOGIC DIAGNOSIS Pap Smear VCE [...] Recently Relevant to Health Maintenance Care Teams Fish Technologist Relationship Specialty Start Date End Date Elsewhere, Pcp PCP - General Internal Medicine 12/25/22
--- OUTSIDE RECORDS SUMMARY | 2023-08-24 15:13 | XMS_ITS | Clinical Summary ---
Author Name Unknown Organization [employer] [facility] Address [place], [place] [address] Care Team Providers Care Wedding Photographer Name Role Phone Hyacinth Looney DO Primary Care Provider [phone] Allergies Active Allergy Reactions Criticality Noted Date [...] Encounters Date Type Department Care Team Description 08/17/2023 Lab Requisition [facility] [phone] Kelsie Fernandez MD 08/16/2023 Orders Only [facility] Scanner 1 scan: (1-Ord) [facility], 08/16/2023 07/17/2023 Orders Only [facility] Scanner 1 scan: (1-Ord) [facility] OB PELVIS TRANSABDOMIANL. RENAL TIME [facility], 07/17/2023 06/18/2023 Orders Only [facility] Scanner 1 scan: (1-Ord) [facility] , 06/18/2023 from Last 3 Months Immunizations Name Administration Dates Next Due COVID-19 vaccine ([employer] NTech 30mcg/0.3mL) 12YO+ BIVALENT PF, MDV 05/08/2022 COVID-19 vaccine ([employer] NT[employer] 30mcg/0.3mL) PF, MDV 05/02/2021 DTaP 02/01/1999,07/02/1995 [...] Comments Blood Pressure 127/82 05/08/2022 8:31 AM RULES EXAMINER Pulse 92 05/08/2022 8:31 AM RULES EXAMINER Temperature 36.9 ??C (98.4 ??F) 05/06/2015 12:[address] Respiratory Rate 18 05/06/2015 12:03 AM RULES EXAMINER Oxygen Saturation 98% 05/08/2022 8:31 AM RULES EXAMINER Inhaled Oxygen Concentration - - Weight 87.5 kg (193 lb) 05/08/2022 8:31 AM RULES EXAMINER Height 171.3 cm (5' 7.44) 05/02/2021 8:59 AM CS T Body Mass Index 29.83 05/02/2021 8:59 AM RULES EXAMINER Plan of Treatment Health Maintenance Due Date [...] Procedure Name Priority Date/Time Associated Diagnosis Comments LAB TRACKING EVENT Routine 08/16/2023 12 :25 PM CDT PATH TISSUE EXAM PLACENTA Routine 08/16/2023 9:32 AM CDT SCAN-OPERATIVE/PROC EDURE REPORT 08/16/2023 12:00 AM CDT SCAN-ULTRASOUND REPORT 07/17/2023 12:00 AM CDT SCAN-ULTRASOUND REPORT 06/18/2023 12:00 AM RULES EXAMINER PATIENT REGISTRATION REPRESENTATIVE THIN PREP PAP SCREEN IMAGED Routine 05/02/2021 9:46 AM RULES EXAMINER Screening for cervical cancer from Last 3 Months or Most Recently Relevant to Health Maintenance Results * LAB TRACKING EVENT (08/16/2023 12:25 PM CDT) Other (Other) Client Collect / Unknown 08/16/2023 12:25 PM CDT 08/17/2023 2:27 PM CDT Kelsie Fernandez MD LAB BILL O NLY [facility]-CENTRAL LABORATORY [address] [place] [address], * PATH TISSUE EXAM PLACENTA (08/16/2023 9:32 AM CDT) Case Report Pathology Report ?Case: [id number] ? Authorizing Provider: ??Kelsie Fernandez ?Collected: ? 08/16/2023 0932 ? MD Katie ? Ordering Location: ? [facility] ?Received: ?08/17/2023 1439 ? Pathologist: ? Zay Lawler MD ? Specimen: ?Placenta ? 08/19/2023 11:59 AM CDT [facility] LABOR[facility]-C ENTRAL LABORATORY Final Diagnosis A) PLACENTA, VAGINAL DELIVERY: 1. Third trimester lees placenta with the following characteristics: ? a. Weight: 406 grams (40 week 10-90th percentile weight range, 442 - 632 grams) ? b. Membranes/ surface: ?Negative for chorioamnionitis ? c. Umbilical cord: ?Three vessel cord ?Negative for funisitis ? d. Disc/Villi: ?Chorionic villi consistent with gestational age ?Negative for villitis ?Placental disc with infarct(s), involving < 5% of the disc volume ?Intervillous thrombi, involving < 5% of the disc ?Bilobed disc ? e. Decidua/basal plate: ?No diagnostic abnormalities identified 08/19/2023 11:59 AM [facility] [employer] LABORATORY-C ENTRAL LABORATORY Comment Placental features that have been associated with diabetes mellitus include an enlarged placenta, villous immaturity and increased villous vessel density (chorangiosis). In this case, these features are not identified - Placental infarcts are very common and can be seen in most placentas. When they involve less than 15% of the placental volume, as in this case, the infarcts are not associated with any significant clinical outcome. - Intraplacental hematomas (intervillous thrombi) are usually innocuous when small and few in number, as in this case. When numerous, they may be associated with significant -maternal hemorrhage, leading to anemia and its complications. - Bilobed placenta is a form of placental shape abnormality. Risk factors for such a finding are increased maternal age, maternal diabetes mellitus, or maternal seizure disorder. Bilobed placentas are reported to have increased risk of vasa previa and post hemorrhage due to failure of one of the lobes to separate at . Overall, bilobed placentas have not been shown to have any significantly unfavorable short term or rn long term care outcome. 08/19/2023 11:59 AM [facility] [employer] LABORATORY-C ENTRAL LABORATORY Clinical Information Indications for Placental Examination by Pathology Maternal indications: ??Diabetes Infectious specimen (e.g. maternal HIV or HCV): No Clinical information: Date of delivery: 08/16/2023 Time of delivery: 09 Type of delivery: Vaginal Live born:Yes Gestational age: 40 1/7 weeks weight of infant(s): 3060 grams Sex of infant (s): ??Male Pertinent Maternal History: Maternal parity: Diabetes: Yes Hypertension: No Eclampsia: No Smoking: No 08/19/2023 11:59 AM CDT [facility] [email or web address] [facility]-C ENTRAL LABORATORY Gross Description A) Received fresh labeled with the patient's name and placenta, is a 32 x 19 x 1.8 cm, 406 g bilobed placenta with 40 cm long trivascular umbilical cord inserting centrally 6 cm from the margin. ??No cord knots or hemorrhages are seen. ??Henry membranes insert marginally with a rupture point at the margin. ??The surface has a purplish blue appearance with normally ramifying vessels. ??The maternal surface appears intact with out adherent blood clot. ??On cut section, there are 2 indurated henry lesions measuring 1 cm and 2 cm, which are located centrally and peripherally, respectively. ??These involve less than 5% of the cut surfaces. ??Smoking Pipe Liner sections are submitted as follows: 1. ??Proximal and distal umbilical cord 2. ??Membranes 3. ??Insertion point of cord 4. ??Sections from each of 2 indurated lesions, maternal surface 5, 6. ??Full-thickness sections through central portion of placenta TRB 08/17/2023 08/19/2023 11:59 AM CDT [facility] Microscopic Description The final diagnosis is based on microscopic examination of appropriate sections of all specimens. 08/19/2023 11:59 AM CDT [facility]- ENTRAL LABORATORY Additional Information Interpreted at [facility] Laboratory - [address], [place] [address] 08/19/2023 11:59 AM CDT [facility] ENTRAL LABORATORY Tissue SPECIMEN FROM PLACENTA / Unknown 08/16/2023 9:32 AM CDT 08/17/2023 2:39 PM CDT Kelsie Fernandez MD PATHOLOGY/ CYTOLOGY [facility] [address] [place] [address], * SCAN-OPERATIVE/PROCEDURE REPORT (08/16/2023 12:00 AM CDT) Scanner OTHER * SCAN-ULTRASOUND REPORT (07/17/2023 12:00 AM CDT) Only the most recent of2 resultswithin the time period is included. Anatomical Region Laterality Modality Other Scanner OTHER * PATIENT REGISTRATION REPRESENTATIVE THIN PREP PAP SCREEN IMAGED [[id number]] (05/02/2021 9:46 AM RULES EXAMINER) Case Report Gynecologic Cytology Report ? Case: [id number] ? Authorizing Provider: ??Hyacinth Looney, DO ?Collected: ? 05/02/2021 0946 ? Ordering Location: ? [facility] ?? Received: ?05/02/2021 1114 ? Clinic ? First Screen: ?Amalia Donnelly ? Specimen: ?PATIENT REGISTRATION REPRESENTATIVE ThinPrep Vial Screening, Cervical ? 05/14/2021 6:55 PM RULES EXAMINER [facility] ENTRAL LABORATORY INTERPRETATION/ RESULT NEGATIVE FOR INTRAEPITHELIAL LESION OR MALIGNANCY (NIL) (none) 05/14/2021 6:55 PM RULES EXAMINER [facility] EN[facility] LABORATORY IMEN ADEQUACY Satisfactory for evaluation Endocervical component present 05/14/2021 6:55 PM RULES EXAMINER [facility] HPV REQUEST HPV if ASCUS 05/14/2021 6:55 PM RULES EXAMINER [facility] EN[facility]AL LABORATORY Date of LMP 04/04/21 05/14/2021 6:55 PM RULES EXAMINER [facility] EN[facility] LABORATORY Last Pap Date unknown 05/14/2021 6:55 PM RULES EXAMINER [facility] EN[facility] LABORATORY Last Pap Result NIL 6:55 PM RULES EXAMINER [facility] EN[facility] LABORATORY Abnormal Pap or [place] Bx in last 5 years No 05/14/2021 6:55 PM RULES EXAMINER [facility] EN[facility] LABORATORY Menstrual Status Regular Periods 05/14/2021 6:55 PM RULES EXAMINER [facility] [place] Bx Done Today No 05/14/2021 6:55 PM RULES EXAMINER [facility] Additional Information None given 05/14/2021 6:55 PM RULES EXAMINER [facility] ENTRAL LABORATORY Comment: Cytology is screened at [facility], Central Laboratory - [address], [place] [address] and [facility] Laboratory - [address], [place] [address] and [facility] - [address] [place] [address] Interpreted at [facility] Central Laboratory - [address], [place] [address] Automated Review Successful 05/14/2021 6:55 PM RULES EXAMINER [facility] LABORATORY Comment:Specimen processed s uccessfully by automated rn surgery device, ThinPrep Imaging System, [employer] Note The pap test is a screening technique, not a diagnostic procedure. It is used primarily to screen for squamous cancers and precursor lesions. Published studies have shown that it is subject to both false negative and false positive results. The pap test should not be used as the sole means to diagnose or exclude pre-malignant and malignant lesions. 05/14/2021 6:55 PM RULES EXAMINER [facility] Other (Cervical) Non-Blood / Unknown 05/02/2021 9:46 AM RULES EXAMINER 05/02/2021 11:14 AM RULES EXAMINER Hyacinth Looney DO PATHOLOGY/CYTOLOGY [employer] LABORATORY-CENTRAL LABORATORY [address] [place] [address], [place] from Last 3 Months or Most Recently Relevant to Health Maintenance Care Teams Wedding Photographer Relationship Specialty Start Date End Date Hyacinth Looney [place] [address] [place] [address] PCP - General Family Practice 05/08/22
--- OUTSIDE RECORDS SUMMARY | 2023-08-24 15:13 | XMS_ITS ---
Author Name Unknown Organization [facility] [place] [address] Care Team Providers Care Cigarette Catcher Name Role Phone Unavailable Unavailable Unavailable Surgery Details Not on file Complications Check Surgery Details section. Procedure Estimated Blood Loss Check Surgery Details section. Procedure Findings Check Surgery Details section. Procedure Specimens Taken Check Surgery Details section.
--- OUTSIDE RECORDS SUMMARY | 2023-08-24 15:13 | XMS_ITS | Clinical Summary ---
Author Name Unknown Organization [facility] [place] [address] Care Team Providers Care Surgical Technologist Name Role Phone Elsewhere, Pcp Primary Care Provider Unavailabl e Source Comments Patient records contain information from all sites at [facility]. For routine questions regarding patient records, call [phone] during business hours, M-F 8:00 AM - 5:00 PM Central Time. Record requests for emergency care only can be directed to [phone] at any time.[facility] Allergies Active Allergy Reactions Criticality Noted Date [...] 37 ??C (98.6 ??F) 03/29/2018 2:00 PM CLOCK REPAIRER Respiratory Rate 16 03/29/2018 2:00 PM CLOCK REPAIRER Oxygen Saturation 100% 01/04/2022 6:36 PM CDT Inhaled Oxygen Concentration - - Weight 91 kg (200 lb 9.9 oz) 01/04/2022 6:44 PM CDT Height 171 cm (5' 7.32) 03/29/2018 2:00 PM CLOCK REPAIRER Body Mass Index 31.12 03/29/2018 2:00 PM CLOCK REPAIRER Plan of Treatment Health Maintenance Due Date [...] Name Priority Date/Time Associated Diagnosis Comments PATHOLOGY SOLAR/RENEWABLE ENERGY SALES CYTOLOGY Routine 04/04/2016 12:00 AM CLOCK REPAIRER from Last 3 Months or Most Recently Relevant to Health Maintenance Results * Pathology SOLAR/RENEWABLE ENERGY SALES Cytology (04/04/2016 12:00 AM CLOCK REPAIRER) 04/04/2016 Narrative [facility] - 04/09/2016 12:26 PM CLOCK REPAIRER [facility] in [address] [place] [address] ??[phone] Patient Name: CHANDRIKA ESQUEDA Collected: 04/04/2016 Address: [facility]/Zip: [address] [place], [place] ??[id number] Received: Reported: 04/07/2016 04/09/2016 Soc. Sec. #: ?/Age/Sex 1995 (Age: 21) ??F Physician(s): CORIN TRUJILLO MD Copy To: ? [facility] ??[id number] [facility], ??[place] ??[address] CYTOPATHOLOGY SOLAR/RENEWABLE ENERGY SALES REPORT FINAL CYTOLOGIC DIAGNOSIS Pap Smear VCE [...] Recently Relevant to Health Maintenance Care Teams Surgical Technologist Relationship Specialty Start Date End Date Elsewhere, Pcp PCP - General Internal Medicine 12/25/22
--- OUTSIDE RECORDS SUMMARY | 2023-08-24 15:13 | XMS_ITS | Encounter Summary ---
Author Name Unknown Organization [facility] [place] [address] Care Team Providers Care Marine Railway Operator Name Role Phone Elsewhere, Pcp Primary Care Provider Ailce e Encounter Details Date Type Department Care Team (Late Contact Info) Description 08/24/2014 Historical Ophthalmology [facility] Stephen Jimenez Jr., M.D. [address] [place] [address] Social History Tobacco Use Types [...] exam HISTORY OF PRESENT ILLNESS Some trouble [facility] night driving IMPRESSION / REPORT / PLAN A) Myopia, unchanged P) glasses at night only if desired. RTO 1-2 year CDM Reports - EYEGEN Id: [id number] Status: Fnl documented in this encounter Plan of Treatment Not on file documented as of this encounter Visit Diagnoses Not on filedocumented in this encounter Additional Health Concerns Infection Onset Date Last Indicated Resolved Time COVID19 Pending 04/11/2020 04/11/2020 04/11/2020 2 :39 PM APPARATUS CLEANER COVID19 Pending 04/11/2020 04/11/2020 04/12/2020 4 :05 AM APPARATUS CLEANER COVID19 Pending 07/24/2020 07/24/2020 07/25/2020 4 :38 AM CDT COVID19 07/24/2020 07/24/2020 08/13/2020 4:46 AM CDT documented as of this encounter Care Teams Marine Railway Operator Relationship Specialty Start Date End Date Elsewhere, Pcp PCP - General Internal Medicine 12/25/22 documented as of this encounter
--- NOTE | 2023-08-24 17:00 | P.LACCB_ITS ---
Consult Note - Mom Date of Visit Date of visit: 08/24/23 coding consultant: Radha Benítez Visit Code: Visit Patient's Information Phone number: [phone] : 1 Para: 1 Allergies amoxicillin Allergy (Mild, Verified 08/31/23 12:59) Rash fructose Adverse Reaction (Intermediate, Uncoded 08/31/23 12:59) malabsorbtion. Mother's Medical History: Medical History (Updated 08/20/23 @ 00:03 by Background Daemon) Gestational diabetes mellitus (GDM) ?O24.419 - Gestational diabetes mellitus in , unspecified control (ICD-10) Delivery Information Delivery type: Vaginal Weeks Gestation: 40.0 Gestational Age: AGA Weight: 2.928 kg Discharge Weight: 2.866 kg Baby's Information Baby's Age at Visit: 8 days Baby's Provider or Clinic: Dr. Looney Jaundice: No Reason for Consult Reason for Consult: difficulty on the left, blisters Past Experience Past Experience: No Current Frequency of Day Feedings: every 2 - 2.5 hours Frequency of Night Feedings: every 3 hours Suck: strong Latch: fairly wide Length of Time: 15 - 40 minutes Pumping Pumping: Yes (will use the Haakaa) Quantity Pumped: 1 -2 oz total each time Supplementing EMB Supplement: Yes (about 1 oz) Formula Supplement: No Baby Elimination Number of Wet Diapers a Day: 5 - 6 Number of BM a Day: 4 - 5, yellow and seedy Breast/Nipple Condition Breast Information: WNL Engorgement: No Maternal Nipple Condition - Left: Common Nipple Maternal Nipple Condition - Right: Common Nipple Sore Nipples: Yes (left with blisters) Interventions for Sore Nipples: Other (olive oil, silverettes) Onsite Pre-Feed weight: 2.962 kg Post-Feed weight: 2.994 kg Milk Transferred (mL): 32 Assessments/Interventions Assessments/Interventions: Met with mom and this now 8 day old ex- term AGA baby for consult. Mom reports she's using the nipple shield but is sometimes able to nurse baby without it on the right side. The left side developed a few blisters the other day so she began to keep the nipple moist with a cotton ball dipped in olive oil under her silverettes. She also soaked her breast in an Epsom salt solution a few times. She reports the blisters have opened and feel a little better but d/t the discomfort with nursing, she's only been nursing on the right side for the last 24 hours. Baby nurses every 2 - 3 hours and the sessions last about 20 minutes on average. Mom will use the Haakaa on the left and gets 1 - 2 oz total each time. She supplements with some of her EBM by syringe after sleepy/poor feedings, but states it's usually no more than three times/day. Breasts WNL- symmetrical with rounded lower quadrants, intramammary distance < 1.5 inches. Nipples are everted and don't flatten or retract on compression. No damage to the right nipple, but the left has a few open areas from where the blisters opened. Baby has gained 25 grams/day since his NB visit on 12/19 and he's now 34 grams above BW at 8 DOL! Per POC there was no caput/cephalohematoma at delivery. Baby has equal ROM when turning his head and moving his extremities. His palate and upper frenulum are WNL. He has a strong suck on a finger, but the tongue d oesn't extend over the gumline consistently. There's no canoeing with lateralization. His lower frenulum is a little anterior. Mom attempted to latch him to the left side without the shield and wasn't successful. When she was coached to exaggerate pointing her nipple to baby's nose, be mindful of finger placement near the areola, and bring baby into her quickly when he opened wide, she was able to latch him after a few attempts. She reported a pulling sensation and although it was a little uncomfortable she felt it was d/t the current damage and not the latch. Baby nursed, needing some stimulation for about 20 minutes. She was shown how to unlatch him and offered him the right side. He wasn't interested so he was weighed and had transferred 32 ml. POC also report he's nursed a little shortly before the appointment. POC were shown the tug-of-war exercise and a stretch to hopefully help him learn to extend his tongue while nursing. Plan: 1. Continue to nurse ALD, ok to let him go one 4 hour stretch overnight since he's past his BW. Suggested that mom offer both sides at each feeding using the ideas above to help get the widest, deepest latch. Hopefully, he'll continue to do well without the shield, but reassured her it's common for babies to need some time to wean from it. It's ok to start with the shield and take it off mid-feeding OR use it for the entire feeding if he's struggling. 2. No medical need to supplement. 3. No need to pump on a schedule. OK to pump to comfort if needed after nursing (or use her Haakaa). 4. Encouraged POC to try the exercise and stretch at least 3 - 4 times/day. 5. B/C the blisters have opened, suggested she start rinsing the nipple with a saline rinse after every feeding. Then pat dry, apply a little expressed milk, and cover with her silverettes. 6. Mom declined a f/u phone call but will call me if she has any questions/concerns. Has 2 week WCC with PCP. Meds Home Medications and Allergies Home Medications Medication Instructions Recorded Confirmed Type prenat.vits,bharat,oui-bzsn-lbizm 1 tab PO QDAY 11/27/21 08/15/23 History cholecalciferol (vitamin D3) 50 50 mcg PO QDAY 01/16/23 08/15/23 History mcg (2,000 unit) capsule Allergies Allergy/AdvReac Type Severity Reaction Status Date / Time amoxicillin Allergy Mild Rash Verified 08/31/23 12:59 fructose AdvReac Intermediate malabsorbti Uncoded 08/31/23 12:59 on.
== END 2023-08-24 15:05 | disposition home or self-care (01) ==
PROVIDERS: PCP Family Medicine; Visit Provider Advanced Practice Midwife
DX: Z39.1 Encounter for care and examination of lactating mother (principal)
CPT/HCPCS: G0463

== ENCOUNTER 2023-09-14 14:48 | Outpatient (CLI) | payer OTHER, SELFPAY ==
--- OUTSIDE RECORDS SUMMARY | 2023-09-14 14:52 | XMS_ITS | Encounter Summary ---
Author Name Unknown Organization [facility] [place] [address] Care Team Providers Care Fluid Designer Name Role Phone Elsewhere, Pcp Primary Care Provider Unavailabl e Encounter Details Date Type Department Care Team (Late Contact Info) Description 08/24/2014 Historical Ophthalmology [facility] Stephen Jimenez Jr., M.D. [address] [place] [address] Social History Tobacco Use Types [...] exam HISTORY OF PRESENT ILLNESS Some trouble [facility] night driving IMPRESSION / REPORT / PLAN A) Myopia, unchanged P) glasses at night only if desired. RTO 1-2 year CDM Reports - EYEGEN Id: [id number] Status: Fnl documented in this encounter Plan of Treatment Not on file documented as of this encounter Visit Diagnoses Not on filedocumented in this encounter Additional Health Concerns Infection Onset Date Last Indicated Resolved Time COVID19 Pending 04/11/2020 04/11/2020 04/11/2020 2 :39 PM BLOCK PAVER COVID19 Pending 04/11/2020 04/11/2020 04/12/2020 4 :05 AM BLOCK PAVER COVID19 Pending 07/24/2020 07/24/2020 07/25/2020 4 :38 AM CDT COVID19 07/24/2020 07/24/2020 08/13/2020 4:46 AM CDT documented as of this encounter Care Teams Fluid Designer Relationship Specialty Start Date End Date Elsewhere, Pcp PCP - General Internal Medicine 12/25/22 documented as of this encounter
--- OUTSIDE RECORDS SUMMARY | 2023-09-14 14:52 | XMS_ITS | Clinical Summary ---
Author Name Unknown Organization [facility] Address [place], [place] [address] Care Team Providers Care International Travel Consultant Name Role Phone Hyacinth Looney DO Primary Care Provider [phone]- [phone] Allergies Active Allergy Reactions Criticality Noted Date [...] Encounters Date Type Department Care Team Description 09/14/2023 Travel 08/17/2023 Lab Requisition [facility] [phone] Kelsie Fernandez MD 08/16/2023 Orders Only [facility] Scanner 1 scan: (1-Ord) [facility], 08/16/2023 07/17/2023 Orders Only [facility] Scanner 1 scan: (1-Ord) [facility], OB PELVIS TRANSABDOMIANL. RENAL TIME [facility], 07/17/2023 06/18/2023 Orders Only [facility] Scanner 1 scan: (1-Ord) [facility] US OB , 06/18/2023 from Last 3 Months Immunizations Name Administration Dates Next Due COVID-19 vaccine ([employer] 30mcg/0.3mL) 12YO+ BIVALENT PF, MDV 05/08/2022 COVID-19 vaccine (Clink [employer] 30mcg/0.3mL) PF, MDV 05/02/2021 DTaP 02/01/1999,07/02/1995 [...] of Communication with Friends and Fami ly 0 09/14/2023 Alcohol Use Answer Date Recorded How often do you have a drink containing alcohol ? 2 05/08/2022 How many drinks containing a lcohol do you have on a typical day when you are drinking? 0 05/08/2022 How often do you have five or more drinks on one occasion? 0 05/08/2022 Financial Resource Strain Answer Date R ecorded Difficulty of Paying Living Expenses 3 09/14/2023 Difficulty of Paying Living Expenses Not on file 09/14/2023 Food Insecurity Answer Date Recorded Worried About Running Out of Food in the Last Ye ar 1 09/14/2023 Transportation Needs Answer Date Record ed Lack of Transportation (Medical) 1 09/14/2023 Housing Stability Answer Date Recorded Unable to Pay for Housing in the Last Year 1 09/14/2023 Sex and Gender Information Value Date Recorded Sex Assigned at Not on file Gender Identity Not on file Sexual Orientation Not on file Obstetrics History Para Term AB IAB SAB Ectopic Multiple Livin g Live Births 0 0 0 0 0 0 0 0 0 0 0 Last Filed Vital Signs Vital Sign Reading Time Taken Comments Blood Pressure 127/82 05/08/2022 8:31 AM CARPET OR RUG LAYER HELPER Pulse 92 05/08/2022 8:31 AM CARPET OR RUG LAYER HELPER Temperature 36.9 ??C (98.4 ??F) 05/06/2015 12:[address] Respiratory Rate 18 05/06/2015 12:03 AM CARPET OR RUG LAYER HELPER Oxygen Saturation 98% 05/08/2022 8:31 AM CARPET OR RUG LAYER HELPER Inhaled Oxygen Concentration - - Weight 87.5 kg (193 lb) 05/08/2022 8:31 AM CARPET OR RUG LAYER HELPER Height 171.3 cm (5' 7.44) 05/02/2021 8:59 AM CS T Body Mass Index 29.83 05/02/2021 8:59 AM CARPET OR RUG LAYER HELPER Plan of Treatment Health Maintenance Due Date [...] AM CDT SCAN-ULTRASOUND REPORT 06/18/2023 12:00 AM CARPET OR RUG LAYER HELPER CIRCUS AGENT THIN PREP PAP SCREEN IMAGED Routine 05/02/2021 9:46 AM CARPET OR RUG LAYER HELPER Screening for cervical cancer from Last 3 Months or Most Recently Relevant to Health Maintenance Results * LAB TRACKING EVENT (08/16/2023 12:25 PM CDT) Other (Other) Client Collect / Unknown 08/16/2023 12:25 PM CDT 08/17/2023 2:27 PM CDT Kelsie Fernandez MD LAB BILL O NLY [facility] [address] [place] [address], * PATH TISSUE EXAM PLACENTA (08/16/2023 9:32 AM CDT) Case Report Pathology Report ?Case: [id number] ? Authorizing Provider: ??Kelsie Fernandez ?Collected: ? 08/16/2023 0932 ? MD Katie ? Ordering Location: ? [facility] ?Received: ?08/17/2023 1439 ? Pathologist: ? Zay Lawler MD ? Specimen: ?Placenta ? 08/19/2023 11:59 AM CDT [facility] EN[facility]AL LABORATORY Final Diagnosis [...] ?No diagnostic abnormalities identified 08/19/2023 11:59 AM [facility]-C ENTRAL LABORATORY Comment Placental features that [...] have any significantly unfavorable short term or detention outcome. 08/19/2023 11:59 AM [facility]-C ENTRAL LABORATORY Clinical Information Indications for Placental Examination by Pathology Maternal indications: ??Diabetes Infectious specimen (e.g. maternal HIV or HCV): No Clinical information: Date of delivery: 08/16/2023 Time of delivery: 09 Type of delivery: Vaginal Live born:Yes Gestational age: 40 1/7 weeks weight of (s): 3060 grams Sex of (s): ??Male Pertinent Maternal History: Maternal parity: Diabetes: Yes Hypertension: No Eclampsia: No Smoking: No 08/19/2023 11:59 AM CDT [facility] ENTRAL LAB[facility] Gross Description A) Received fresh [...] less than 5% of the cut surfaces. ??Grapple Operator sections are submitted as follows: 1. ??Proximal and distal umbilical cord 2. ??Membranes 3. ??Insertion point of cord 4. ??Sections from each of 2 indurated lesions, maternal surface 5, 6. ??Full-thickness sections through central portion of placenta TRB 08/17/2023 08/19/2023 11:59 AM CDT [facility] Microscopic Description The final diagnosis is based on microscopic examination of appropriate sections of all specimens. 08/19/2023 11:59 AM CDT [facility] ENTRAL LABORATORY Additional Information Interpreted at [facility], Central Laboratory - [address] [address] 08/19/2023 11:59 AM CDT [facility] ENTRAL LABORATORY Tissue SPECIMEN FROM PLACENTA / Unknown 08/16/2023 9:32 AM CDT 08/17/2023 2:39 PM CDT Kelsie Fernandez MD PATHOLOGY/ [facility] [address] [place] [address], * SCAN-OPERATIVE/PROCEDURE REPORT (08/16/2023 12:00 AM CDT) Scanner OTHER * SCAN-ULTRASOUND REPORT (07/17/2023 12:00 AM CDT) Only the most recent of2 resultswithin the time period is included. Anatomical Region Laterality Modality Other Scanner OTHER * CIRCUS AGENT THIN PREP PAP SCREEN IMAGED [[id number]] (05/02/2021 9:46 AM CARPET OR RUG LAYER HELPER) Pathologist [facility] Case Report Gynecologic Cytology Report ? Case: [id number] ? Authorizing Provider: ??Hyacinth Looney, DO ?Collected: ? 05/02/2021 0946 ? Ordering Location: ? [facility] ?? Received: ?05/02/2021 1114 ? Clinic ? First Screen: ?Amalia Donnelly ? Specimen: ?CIRCUS AGENT ThinPrep Vial Screening, Cervical ? 05/14/2021 6:55 PM CARPET OR RUG LAYER HELPER [facility] ENTRAL LABORATORY INTERPRETATION/ RESULT NEGATIVE FOR INTRAEPITHELIAL LESION OR MALIGNANCY (NIL) (none) 05/14/2021 6:55 PM CARPET OR RUG LAYER HELPER [facility] ENTRNY LABORATORY IMEN ADEQUACY Satisfactory for evaluation Endocervical component present 05/14/2021 6:55 PM CARPET OR RUG LAYER HELPER [facility] EN[facility] LABORAT[facility] HPV REQUEST HPV if ASCUS 05/14/2021 6:55 PM CARPET OR RUG LAYER HELPER [facility] ENTRAL LABORATORY Date of LMP 04/04/21 05/14/2021 6:55 PM CARPET OR RUG LAYER HELPER [facility] EN[facility] LABORAT[facility] Last Pap Date unknown 05/14/2021 6:55 PM CARPET OR RUG LAYER HELPER [facility] EN[facility] LABORAT[facility] Last Pap Result NIL 6:55 PM CARPET OR RUG LAYER HELPER [facility] EN[facility] LABORATORY Abnormal Pap or Sheldon Bx in last 5 years No 05/14/2021 6:55 PM CARPET OR RUG LAYER HELPER [facility] EN[facility] LABORATORY Menstrual Status Regular Periods 05/14/2021 6:55 PM CARPET OR RUG LAYER HELPER [facility] ENTRAL LABORATORY Sheldon Bx Done Today No 05/14/2021 6:55 PM CARPET OR RUG LAYER HELPER [facility] Additional Information None given 05/14/2021 6:55 PM CARPET OR RUG LAYER HELPER [facility] EN[facility] LABORATORY Comment: Cytology is screened at [facility] Laboratory - [address] [address] and [facility] - [address], [place] [address] and [facility] - [address] [facility] [place] [address] Interpreted at [facility] Laboratory - [address], [place] [address] Automated Review Successful 05/14/2021 6:55 PM CARPET OR RUG LAYER HELPER [facility] ENTRAL LABORATORY Comment:Specimen processed s uccessfully by automated hydroelectric station chief device, ThinPrep Imaging System, [email or web address] Note The pap test is a screening technique, not a diagnostic procedure. It is used primarily to screen for squamous cancers and precursor lesions. Published studies have shown that it is subject to both false negative and false positive results. The pap test should not be used as the sole means to diagnose or exclude pre-malignant and malignant lesions. 05/14/2021 6:55 PM CARPET OR RUG LAYER HELPER [id number] LABORAT[facility]-C ENTRAL LABORATORY Other (Cervical) Non-Blood / Unknown 05/02/2021 9:46 AM CARPET OR RUG LAYER HELPER 05/02/2021 11:14 AM CARPET OR RUG LAYER HELPER Hyacinth Looney DO PATHOLOGY/CYTOLOGY [facility] LABORATORY [address] [place] [address], [place] from Last 3 Months or Most Recently Relevant to Health Maintenance Care Teams International Travel Consultant Relationship Specialty Start Date End Date Hyacinth Looney [place] [address] [place] [address] PCP - General Family Practice 05/08/22
--- OUTSIDE RECORDS SUMMARY | 2023-09-14 14:52 | XMS_ITS | Referral Summary ---
Author Name Unknown Organization [facility] [place] [address] Care Team Providers Care Splicer Operator Name Role Phone Elsewhere, Pcp Primary Care Provider Unavailabl e Source Comments Patient records contain information from all sites at [facility]. For routine questions regarding patient records, call [phone] during business hours, M-F 8:00 AM - 5:00 PM Central Time. Record requests for emergency care only can be directed to [phone] at any time.[facility] Allergies Active Allergy Reactions Criticality Noted Date [...] 37 ??C (98.6 ??F) 03/29/2018 2:00 PM CONTROL ROOM HELPER Respiratory Rate 16 03/29/2018 2:00 PM CONTROL ROOM HELPER Oxygen Saturation 100% 01/04/2022 6:36 PM CDT Inhaled Oxygen Concentration - - Weight 91 kg (200 lb 9.9 oz) 01/04/2022 6:44 PM CDT Height 171 cm (5' 7.32) 03/29/2018 2:00 PM CONTROL ROOM HELPER Body Mass Index 31.12 03/29/2018 2:00 PM CONTROL ROOM HELPER Plan of Treatment Not on file Procedures Procedure Name Priority Date/Time Associated Diagnosis Comments PATHOLOGY [facility] CYTOLOGY Routine 04/04/2016 12:00 AM CONTROL ROOM HELPER from Last 3 Months or Most Recently Relevant to Health Maintenance Results * Pathology [facility] Cytology (04/04/2016 12:00 AM CONTROL ROOM HELPER) 04/04/2016 Narrative [facility] - 04/09/2016 12:26 PM CONTROL ROOM HELPER [facility] [place] [address] [place], [place] ??[address] Patient Name: CHANDRIKA ESQUEDA Collected: 04/04/2016 Address: [facility]/State/Zip: [address] [place], [place] ??[id number] Received: Reported: 04/07/2016 04/09/2016 Soc. Sec. #: ?/Age/Sex 1995 (Age: 21) ??F Physician(s): CORIN TRUJILLO MD Copy To: ? [facility] ??[id number] [address] [place] [address], ??[place] ??[address] CYTOPATHOLOGY [facility] REPORT FINAL CYTOLOGIC DIAGNOSIS Pap Smear VCE [...] Recently Relevant to Health Maintenance Care Teams Splicer Operator Relationship Specialty Start Date End Date Elsewhere, Pcp PCP - General Internal Medicine 12/25/22
--- OUTSIDE RECORDS SUMMARY | 2023-09-14 14:52 | XMS_ITS | Clinical Summary ---
Author Name Unknown Organization [facility] [place] [address] Care Team Providers Care Course Instructor Name Role Phone Elsewhere, Pcp Primary Care Provider Unavailabl e Source Comments Patient records contain information from all sites at [facility]. For routine questions regarding patient records, call [phone] during business hours, M-F 8:00 AM - 5:00 PM Central Time. Record requests for emergency care only can be directed to [phone] at any time.[facility] Allergies Active Allergy Reactions Criticality Noted Date [...] 37 ??C (98.6 ??F) 03/29/2018 2:00 PM MAIL SORTING SUPERVISOR Respiratory Rate 16 03/29/2018 2:00 PM MAIL SORTING SUPERVISOR Oxygen Saturation 100% 01/04/2022 6:36 PM CDT Inhaled Oxygen Concentration - - Weight 91 kg (200 lb 9.9 oz) 01/04/2022 6:44 PM CDT Height 171 cm (5' 7.32) 03/29/2018 2:00 PM MAIL SORTING SUPERVISOR Body Mass Index 31.12 03/29/2018 2:00 PM MAIL SORTING SUPERVISOR Plan of Treatment Health Maintenance Due Date [...] Name Priority Date/Time Associated Diagnosis Comments PATHOLOGY [facility] CYTOLOGY Routine 04/04/2016 12:00 AM MAIL SORTING SUPERVISOR from Last 3 Months or Most Recently Relevant to Health Maintenance Results * Pathology [facility] Cytology (04/04/2016 12:00 AM MAIL SORTING SUPERVISOR) 04/04/2016 Narrative [facility] - 04/09/2016 12:26 PM MAIL SORTING SUPERVISOR [facility] in [address] [place] [address] ??[phone] Patient Name: CHANDRIKA ESQUEDA Collected: 04/04/2016 Address: [facility]/Zip: [address] [place], [place] ??[id number] Received: Reported: 04/07/2016 04/09/2016 Soc. Sec. #: ?/Age/Sex 1995 (Age: 21) ??F Physician(s): CORIN TRUJILLO MD Copy To: ? [facility] ??[id number] [address] [facility], ??[place] ??[address] CYTOPATHOLOGY [facility] REPORT FINAL CYTOLOGIC DIAGNOSIS Pap Smear VCE [...] Recently Relevant to Health Maintenance Care Teams Course Instructor Relationship Specialty Start Date End Date Elsewhere, Pcp PCP - General Internal Medicine 12/25/22
--- OUTSIDE RECORDS SUMMARY | 2023-09-14 14:52 | XMS_ITS ---
Author Name Unknown Organization [facility] [place] [address] Care Team Providers Care Fibrous Plasterer Name Role Phone Unavailable Unavailable Unavailable Surgery Details Not on file Complications Check Surgery Details section. Procedure Estimated Blood Loss Check Surgery Details section. Procedure Findings Check Surgery Details section. Procedure Specimens Taken Check Surgery Details section.
== END 2023-09-14 14:49 | disposition home or self-care (01) ==
LOC: NFLDREF 14:50
PROVIDERS: PCP Family Medicine; Visit Provider Advanced Practice Midwife
DX: R39.9 Unspecified symptoms and signs involving the genitourinary system (principal); N89.8 Other specified noninflammatory disorders of vagina
CPT/HCPCS: 87086

== ENCOUNTER 2023-10-29 13:00 | Outpatient (RCR) | payer OTHER, SELFPAY | END 2024-02-26 23:59 | disposition home or self-care (01) | PROVIDERS: PCP Family Medicine; Visit Provider Advanced Practice Midwife | DX: N81.89 Other female genital prolapse (principal); R27.8 Other lack of coordination; R29.3 Abnormal posture; Z51.89 Encounter for other specified aftercare | CPT/HCPCS: 97110; 97112; 97140; 97161; 97530 ==

== ENCOUNTER 2024-06-06 16:36 | Outpatient (CLI) | payer BC, SELFPAY ==
--- NOTE | 2024-06-06 16:45 | CRLHL7_ITS ---
For Patients: As a result of the Cures Act, medical imaging exams and procedure reports are released immediately into your electronic medical record. You may view this report before your referring provider. If you have questions, please contact your health care provider. OB ULTRASOUND LESS THAN 14 WEEKS, 06/06/2024 CLINICAL HISTORY: Dating and viability. LMP: 04/08/2024. GA: 8 weeks 3 days. TECHNIQUE: Transabdominal and transvaginal real time jordan scale imaging of the fetus was performed. COMPARISON: None. FINDINGS: CRL: 0.8 cm, 6 weeks 5 days. MEGHANN: 01/25/2025. FHR: 126 bpm. Gest Sac: 2.5 cm, appears within normal limits. Yolk Sac: 2.9 mm, appears within normal limits. Right Ovary: Within normal limits, 3.2 x 1.8 x 1.9 cm. Left Ovary: Not visualized. IMPRESSION: Single living intrauterine with sonographic gestational age 6 weeks 5 days and sonographic due date 01/25/2025. Castillo Figueroa M.D. Diagnostic Radiologist [email or web address] Transcribed: 9:34 am DW/Dictated by: Castillo Figueroa MD @ 06/07/2024 8:24:00 AM (Electronically Signed)
== END 2024-06-06 16:37 | disposition home or self-care (01) ==
LOC: US 16:36
PROVIDERS: PCP Family Medicine; Visit Provider Physician Assistant
DX: Z34.91 Encounter for supervision of normal pregnancy, unspecified, first trimester (principal); Z3A.01 Less than 8 weeks gestation of pregnancy
CPT/HCPCS: 76817

== ENCOUNTER 2024-06-06 17:31 | Outpatient (CLI) | payer BC, SELFPAY ==
[2024-06-06 23:01] LABS: Chlamydia DNA Amplified* NOT DETECTED (No Detected); GC DNA Amplified* NOT DETECTED (No Detected)
== END 2024-06-06 17:32 | disposition home or self-care (01) ==
PROVIDERS: PCP Family Medicine; Visit Provider Physician Assistant
DX: Z34.91 Encounter for supervision of normal pregnancy, unspecified, first trimester (principal); Z3A.01 Less than 8 weeks gestation of pregnancy
CPT/HCPCS: 83020; 83021; 85660; 86592; 86703; 86704; 86706; 86762; 86787; 86803; 86850; 86900; 86901; 87086; 87340; 87491; 87591

== ENCOUNTER 2024-09-06 12:14 | Outpatient (CLI) | payer BC, SELFPAY ==
--- NOTE | 2024-09-06 12:15 | CRLHL7_ITS ---
For Patients: As a result of the Century Cures Act, medical imaging exams and procedure reports are released immediately into your electronic medical record. You may view this report before your referring provider. If you have questions, please contact your health care provider. OB ULTRASOUND ANATOMY SURVEY MEGAHNN by US: 01/25/2025. GA: 19 w, 6 d. INDICATION: anatomy. TECHNIQUE: Real time jordan scale imaging of the fetus was performed. Evaluate anatomy. Transabdominal. position: Multiple positions. Cervix: Visualized. Technique: Transabdominal. Length of closed cervix: 4.1 cm. Placenta/cord: Posterior. Technique: Transabdominal. Placenta tip to internal OS: 3.8 cm. Umbilical Cord: 3-vessel cord. Placenta insertion: Central. Amniotic Fluid: 3.5 cm SDP (greater than/equal to: 2- less than 8 cm). SURVEY: Observed Structures. Calvarium/Spine: Cerebellum: 2.1 cm, 21 w 0 d. Cisterna Magna: 3.8 mm. Nuchal Fold: 3.1 mm. Lateral Ventricle: 5.5 mm. CSP: Yes. Midline Falx: Yes. Choroid Plexus: Yes. Spine: Yes. Abdomen: Stomach: Yes. Abd Cord Insertion: Yes. Urinary Bladder: Yes. Kidneys: Yes. Diaphragm: Yes. Face: Nose/lips: Yes. Orbital view: Yes. Profile: Yes. Limbs: Upper Extremities: Yes. Lower Extremities: Yes. Hands: Yes. Feet: Yes. Vascular: 4-Chamber Heart: Yes. LVOT: Yes. RVOT: Yes. 3VV: Yes. 3VTV: Yes. BPD: 4.4 cm. 19 w, 1 d, 22.8 percent. HC: 16.6 cm. 19 w, 2 d, 18.1 percent. AC: 14.2 cm. 19 w, 4 d, 34.7 percent. FL: 3.4 cm. 20 w, 5 d, 73.9 percent. FL/AC ratio: 24.07 percent. HC/AC ratio: 1.17. heart rate: 154 bpm. age by this US: 20 w, 0 d. MEGHANN by this US: 01/24/2025. EFW: 326.26 g. Weight: 0 lbs, 12 oz. Percentile by MEGHANN: 54.1 percent. IMPRESSION: 1. Normal anatomic survey. 2. Estimated age 20 weeks 0 days with sonographic due date 01/24/2025. Good correlation with dates. Castillo Figueroa M.D. Diagnostic Radiologist [email or web address] SP/Dictated by: Castillo Figueroa MD @ 09/06/2024 8:12:00 PM (Electronically Signed)
== END 2024-09-06 12:15 | disposition home or self-care (01) ==
LOC: US 12:15
PROVIDERS: PCP Family Medicine; Visit Provider Registered Nurse
DX: Z34.92 Encounter for supervision of normal pregnancy, unspecified, second trimester (principal); Z3A.20 20 weeks gestation of pregnancy
CPT/HCPCS: 76805

== ENCOUNTER 2024-10-31 08:31 | Outpatient (CLI) | payer BC, SELFPAY | END 2024-10-31 08:32 | disposition home or self-care (01) | LOC: NFLDREF 11-03 01:59 | PROVIDERS: PCP Family Medicine; Referring Provider Family Medicine; Visit Provider Obstetrics & Gynecology | DX: Z34.92 Encounter for supervision of normal pregnancy, unspecified, second trimester (principal); Z3A.27 27 weeks gestation of pregnancy | CPT/HCPCS: 86592 ==

== ENCOUNTER 2024-11-02 07:54 | Outpatient (CLI) | payer BC, SELFPAY | END 2024-11-02 07:55 | disposition home or self-care (01) | LOC: NFLDREF 11-06 05:59 | PROVIDERS: PCP Family Medicine; Referring Provider Family Medicine; Visit Provider Obstetrics & Gynecology | DX: R73.09 Other abnormal glucose (principal) | CPT/HCPCS: 82951; 82952 ==

== ENCOUNTER 2024-11-29 09:11 | Outpatient (CLI) | payer BC, SELFPAY ==
--- NOTE | 2024-11-29 09:15 | CRLHL7_ITS ---
For Patients: As a result of the Cures Act, medical imaging exams and procedure reports are released immediately into your electronic medical record. You may view this report before your referring provider. If you have questions, please contact your health care provider. Indication: Gestational diabetes ESTIMATED DATE OF DELIVERY (MEGHANN): 01/25/2025. Technique: Real-time sonographic images of the pelvis were obtained transabdominally using grayscale, color, and Doppler imaging. Comparison: 09/06/2024. Findings: Placenta: Posterior. No previa. : Number: Single. Position: Transverse, head maternal left. Cardiac activity: 133 BPM. Amniotic fluid: Single deepest pocket measures 5.0 cm. GROWTH PARAMETER SIZE (cm) ESTIMATED AGE Biparietal diameter: 7.7 30 weeks 5 days Head circumference: 28.8 31 weeks 5 days Abdominal circumference: 27.1 31 weeks 1 day Femur length: 6.4 32 weeks 6 days Average Ultrasound Age (AUA) based on this exam: 31 weeks 4 days. MEGHANN based on the AUA from this exam: 01/27/2025. Estimated weight (EFW): 1821 gm +/-273 gm. This corresponds to the 33.8 percentile based on the established MEGHANN. HC/AC= 1.1 FL/AC= 23.4% Impression: 1. Single live intrauterine measuring 31 weeks 4 days by ultrasound. 2. Amniotic fluid single deepest pocket measuring 5.0 centimeter. Dictated by Festus Huerta MD @ 12/03/2024 11:24:23 AM (Electronically Signed)
== END 2024-11-29 09:12 | disposition home or self-care (01) ==
LOC: US 09:12
PROVIDERS: PCP Family Medicine; Visit Provider Obstetrics & Gynecology
DX: O24.419 Gestational diabetes mellitus in pregnancy, unspecified control (principal)
CPT/HCPCS: 76816

== ENCOUNTER 2024-12-30 07:16 | Outpatient (CLI) | payer BC, SELFPAY ==
--- NOTE | 2024-12-30 07:15 | CRLHL7_ITS ---
For Patients: As a result of the Century Cures Act, medical imaging exams and procedure reports are released immediately into your electronic medical record. You may view this report before your referring provider. If you have questions, please contact your health care provider. OB ULTRASOUND FOLLOW-UP/LIMITED, 12/30/2024 CLINICAL HISTORY: Gestational diabetes mellitus. COMPARISON: 11/29/2024, 09/06/2024. TECHNIQUE: Real time jordan scale imaging of the fetus was performed. Transabdominal imaging performed. FINDINGS: MEGHANN by US: 01/25/2025. GA: 36 weeks 2 days. Gestation: Single. Cervix: Not visualized. Positioning: Vertex. Amniotic Fluid: 4.5 cm SDP. Placenta: Technique: TA. Placenta Position: Posterior. Dopplers: Heart Rate: 150 bpm. BIOMETRY BPD: 8.7 cm, 35 weeks 2 days. 31% HC: 32.9 cm, 37 weeks 3 days. 50% AC: 30.5 cm, 34 weeks 3 days. 13% FL: 7.0 cm, 36 weeks 0 days. 39% FL/AC Ratio: 23.04% HC/AC Ratio: 1.08. EFW: 2633 grams, 5 lb 13 oz. Age by this US: 35 weeks 6 days. MEGHANN by this US: 01/28/2025. Percentile by MEGHANN: 25% IMPRESSION: 1. Sonographic gestational age 35 weeks 6 days and sonographic due date 01/28/2025. Good correlation with dates. Normal interval growth. 2. Estimated weight 25th percentile. Abdominal circumference 13th percentile. Castillo Figueroa M.D. Diagnostic Radiologist [email or web address] Transcribed: 1:12 pm DW/Dictated by: Castillo Figueroa MD @ 12/30/2024 11:39:00 AM (Electronically Signed)
== END 2024-12-30 07:17 | disposition home or self-care (01) ==
LOC: US 07:16
PROVIDERS: PCP Family Medicine; Visit Provider Obstetrics & Gynecology
DX: O24.419 Gestational diabetes mellitus in pregnancy, unspecified control (principal); Z3A.36 36 weeks gestation of pregnancy
CPT/HCPCS: 76816

== ENCOUNTER 2024-12-30 08:45 | Outpatient (CLI) | payer BC, SELFPAY ==
[2024-12-31 11:25] LABS: Strep B DNA Probe Negative (Negative)
[2024-12-31 12:08] LABS: Strep B Susceptibility Needed? No
== END 2024-12-30 08:46 | disposition home or self-care (01) ==
LOC: NFLDREF 08:45
PROVIDERS: PCP Family Medicine; Visit Provider Physician Assistant
DX: O24.419 Gestational diabetes mellitus in pregnancy, unspecified control (principal); Z3A.36 36 weeks gestation of pregnancy
CPT/HCPCS: 87081; 87653

== ENCOUNTER 2025-01-25 16:35 | Inpatient (IN) | payer BC, SELFPAY ==
[2025-01-25 16:49] VITALS: BP 114/73; PULSE 149; PULSE 79; PULSE 80; O2SAT 84; O2SAT 99
[2025-01-25 16:50] VITALS: TEMP 36.4
[2025-01-25 17:36] LABS: Hematocrit* 34.0 % (33.0-51.0); Hemoglobin* 11.7 gm/dL (12.0-16.0); Mean Corpuscular HGB Conc 34 gm/dL (32-36); Mean Corpuscular Hemoglobin 31 pg (26-34); Mean Corpuscular Volume 90 fL (80-100); RDW Coefficient of Variation % 13.0 % (11.5-15.5); Red Blood Count* 3.77 m/uL (4.00-5.20); White Blood Count* 10.69 K/uL (4.50-11.00)
[2025-01-25 17:37] LABS: Immature Granulocytes Abs Auto 0.06 K/uL (0.00-0.30); Immature Granulocytes Pct Auto 0.6 %
[2025-01-25 17:38] LABS: Lymphocytes Absolute Auto 1.60 K/uL (0.90-2.90); Slide Review Reflex No
[2025-01-25 19:42] VITALS: BP 121/69; PULSE 77; RESP 16; TEMP 36.7
[2025-01-25 19:43] VITALS: PULSE 62; O2SAT 98
--- NOTE | 2025-01-25 22:54 | W.PM.LDBA ---
Subjective History of Present Illness Time Seen by Provider: 18:00 Narrative: Patient is being admitted to Labor and Delivery for scheduled induction of labor. She is a 29 year old at 40.0 weeks gestation. Her full history and physical was dictated by Dr. Charles on 01/03/25. Please see this for details. Active movement. Denies Ctx, LOF, vaginal bleeding or abnormal vaginal discharge. Specific Issues/Plans Partner: Jono H&P: 01/03/[address] Charles *JAK Comer ( [facility] RN) daughter in law* # GDM history of gestational diabetes, diet controlled Hemoglobin A1c: 5.1 Elevated 1 hr GTT = 183. 3 hr GTT with 2/4 values elevated Nutrition referral US for growth at 32 and 36 weeks: Completed Delivery recommended at 39 0/7 weeks to 40 6/7 weeks # history of infertility, previous conceived with letrozole + IUI Spontaneous # GERD Omeprazole 20 mg PRN # short interval , last delivery 08/16/2023 Imaging: [facility] on 09/06: Normal visualized anatomy. EFW at 54%ile - BPD 22.8%, HC 18%, AC 35%, FL 74%. MVP 3.5cm. Cx 4.1, posterior placenta, no previa/low lying. 11/25/24: Transverse,SDP: 5.0 cm, BPD: 12th percentile, HC: 12 percentile, a/c: 29 percentile, FL: 64th percentile. EFW 1821 g, 34th percentile. 12/30/24: cephalic, SDP 4.5, EFW 2633 grams, 5 lb 13 oz. = 25% AC 13%. All other growth parameters wnl. Vaccinations: COVID: declines Flu: Tdap: 11/22/24 32 week mental health: 11/29/24 Last pap: OB - Problem Based A/P Additional Plan (1) GDM, class A1: Status: Acute Plan: BG 116 on admission (2) Thrombocytopenia: Status: Acute Plan: - Plt 95 on admission. Last plt on 10/31/24 was 167 - No signs of symptoms of PreE. - Will notify anesthesia - Likely gestational thrombocytopenia. Expectant management for now. (3) : Problem details: High-risk Status: Acute Plan: - Cook cath placed at 1820: 60cc/60cc. Patient tolerated the procedure well - Titrating Pitocin to start 6 hours after cook cath placement - NST: 135 bpm, moderate variability, + accel, - decel - Snover: Irregular contractions OB Exam Physical Exam Vital signs: Temp Pulse BP Pulse Ox 97.6 F 77 121/69 98 01/25/25 16:50 01/25/25 19:42 01/25/25 19:42 01/25/25 19:43 Narrative: Physical exam: General: No acute distress Psych: Alert and oriented x3, full affect HEENT: Normocephalic, atraumatic Lungs: Unlabored breathing Neuro: No focal deficit. Mentating appropriately Pelvic exam: Dry perineum. 1.5/50/-3, moderately soft, posterior. RADER score 3
[2025-01-26] VITALS (49 sets, daily range): BP systolic 84–125; BP diastolic 52–74; PULSE 51–112; RESP 16; TEMP 36.3–36.7; O2SAT 97–100
[2025-01-26] MEDS: OXYTOCIN 30 unit/500 ML in NS 30 UNIT/500 ML BAG IVPB (00:07)
[2025-01-26] MEDS: LACTATED RINGERS 1000 ML 1,000 ML 124 ML IV (00:07)
[2025-01-26] MEDS: LACTATED RINGERS 1000 ML 1,000 ML 121 ML IV (03:45)
[2025-01-26 06:41] LABS: Hematocrit* 36.0 % (33.0-51.0); Hemoglobin* 12.2 gm/dL (12.0-16.0); Immature Granulocytes Pct Auto 0.4 %; Lymphocytes Absolute Auto 1.90 K/uL (0.90-2.90); Mean Corpuscular HGB Conc 34 gm/dL (32-36); Mean Corpuscular Hemoglobin 30 pg (26-34); Mean Corpuscular Volume 90 fL (80-100); RDW Coefficient of Variation % 13.0 % (11.5-15.5); Red Blood Count* 4.02 m/uL (4.00-5.20); White Blood Count* 13.89 K/uL (4.50-11.00)
[2025-01-26 06:43] LABS: Immature Granulocytes Abs Auto 0.10 K/uL (0.00-0.30)
[2025-01-26 06:44] LABS: Slide Review Reflex No
[2025-01-26] MEDS: LIDOCAINE 2% (PF) 5 ML VIAL EPIDURAL (07:11)
[2025-01-26] MEDS: ROPIVACAINE 0.2% 100 ml 100 ML 12 MG EPIDURAL (07:12)
--- NOTE | 2025-01-26 07:15 | P.OBPN_ITS ---
Subjective Date Seen: 01/26/25 Narrative: Chandrika is a 29yo at 40w1d GA ongoing IOL for GDMA1. is otherwise complicated by newly diagnosed suspected gestational thrombocytopenia on admission (95), history of infertility (spontaneous ), short interval , GERD. Patient was 1.5/50/-3 on admission, s/p cook catheter and low dose pitocin overnight. When I attempted around this morning, she was getting her epidural. Has been aldo every 2 minutes painfully, pain is now well controlled with epidural. Endorses intermittent rectal pressure. Denies bleeding or apparent leaking of fluid. Endorses movement. Objective Exam: General: Alert and oriented, in no acute distress Abdomen: Gravid. EFW by US on 12/30 was 25%ile. FHR: Category 2. Baseline 130bpm, moderate variability at present. Accelerations present. Recent early decelerations and rare variable deceleration with rapid return to normal baseline. Cervix: 8/90/0. sutures palpable, question if SROM occurred intrapartum. [place] [facility]: Contractions q2m Vital Signs: Last Vital Signs Temp 98.1 F 01/26/25 00:04 Pulse 76 01/26/25 06:18 Resp 16 01/26/25 00:04 BP 120/70 01/26/25 06:18 Pulse Ox 100 01/26/25 07:10 Plan Plan: Chandrika is a 29yo at 40w1d GA ongoing IOL for GDMA1. is otherwise complicated by newly diagnosed suspected gestational thrombocytopenia on admission (95), history of infertility (spontaneous ), short interval , GERD. - Cervix is now 8/90/0, plan to continue pitocin at 6mu/min at present. No palpable bag of water, suspect SROM intrapartum. If bag becomes palpable in time, consider amniotomy. - Patient notes intermittent rectal pressure, where I expect she will soon achieve complete cervical dilation. Plan to recheck cervix in 1 hour, sooner if constant pressure or FHR concerns. - FHR is category 2 for intermittent variable decelerations but is overall reassuring with normal baseline, moderate variability and accelerations present. - BG monitoring per GDM protocol ongoing - Admission platelets of 95, on repeat this morning they are 166. - Epidural placed with excellent analgesia - BT A+, T/S on file - GBS negative
--- NOTE | 2025-01-26 07:34 | PM.ANBPRC ---
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 Marital status: . Hindu/cultural needs: no. Chemical or radiation exposure: no. Pre- tobacco use: no. Pre- alcohol use: no. Current tobacco use: no. Current alcohol use: no. Recreational drug use: no. Dietary restrictions: no. Blood transfusion acceptable in an emergency: yes. PSYCHOSOCIAL HISTORY: History of depression or currently depressed: no. Current or past physical, emotional, or sexual mistreatment: no. Problems that will make it hard to make it to appointments: no. What is your current living situation?: I presently have a place to live Problems where you live: no known problems In the past 12 months, utilities in danger of being shut off: no In past 12 months, lack of transportation kept you from medical appts, meetings, work, or getting things needed for daily living: no In the past 12 mos, have been you worried that your food would run out before you had money to buy more?: never true In the past 12 mos, the food you bought just didn't last and you didn't have money to buy more?: never true Highest level of school completed/degree received: Master's degree Smoking Status: Never smoker How often do you have a drink containing alcohol: monthly or less AUDIT-C Alcohol total score: 1 Non-prescribed substance use: denies use Are you now , , , , never or living with a partner: Social isolation score (0-1 are the most socially isolated patients): 1 How often does anyone, including family, friends and others, physically hurt you: never How often does anyone, including family, friends and others, insult or talk down to you: never How often does anyone, including family, friends and others, threaten you with harm: never How often does anyone, including family, friends and others, scream or curse at you: never Meds Home Medications and Allergies Home Medications ?Medication ?Instructions ?Recorded ?Confirmed ?Type prenat.vits,bharat,[id number] 1 tab PO QDAY 11/27/21 01/25/25 History cholecalciferol (vitamin D3) 50 50 mcg PO QDAY 01/16/23 01/25/25 History mcg (2,000 unit) capsule magnesium 250 mg tablet 250 mg PO QDAY 09/29/23 01/25/25 History pyridoxine (vitamin B6) 50 mg 50 mg PO QDAY 09/29/23 01/25/25 History tablet doxylamine succinate 25 mg tablet 25 mg PO QHS PRN 07/05/24 01/25/25 History (Unisom (doxylamine)) Blood Glucose Meter #1 ea 11/03/24 01/25/25 Rx Test Strips #100 ea 11/03/24 01/25/25 Rx lancets #100 ea 11/03/24 01/25/25 Rx omeprazole 20 mg capsule,delayed 20 mg PO DAILY #90 caps 12/21/24 01/25/25 Rx release Allergies Allergy/AdvReac Type Severity Reaction Status Date / Time amoxicillin Allergy Mild Rash Verified 01/25/25 17:02 fructose AdvReac Intermediate malabsorbti Uncoded 01/24/25 14:37 on. Results Labs Labs: Laboratory Results - last 24 hr 01/25/25 01/25/25 01/26/25 17:06 17:30 06:27 WBC 10.69 13.89 H RBC 3.77 L 4.02 Hgb 11.7 L 12.2 Hct 34.0 36.0 MCV 90 90 MCH 31 30 MCHC 34 34 RDW Coeff of Pao 13.0 13.0 Plt Count 95 L 166 Neut % (Auto) 78.3 H 80.7 H Lymph % (Auto) 15.2 L 13.7 L Cass % (Auto) 5.4 5.0 Eos % (Auto) 0.5 0.1 Baso % (Auto) 0.0 0.1 Neut # (Auto) 8.40 H 11.20 H Lymph # (Auto) 1.60 1.90 Cass # (Auto) 0.60 0.70 Eos # (Auto) 0.05 0.00 Baso # (Auto) 0.00 0.00 Abs Immat Gran (auto) 0.06 0.10 Imm/Tot Granulo (auto) 0.6 0.4 Blood Type A Positive Antibody Screen NEGATIVE Vital Signs Vital Signs: Last Vital Signs Temp 98.1 F 01/26/25 00:04 Pulse 89 01/26/25 07:31 Resp 16 01/26/25 00:04 BP 106/59 L 01/26/25 07:31 Pulse Ox 99 01/26/25 07:25 Weight: 94.71 kg Anesthesia Procedures Epidural Insertion Patient Location: OB Start Time: 07:00 Stop Time: 07:40 Start Date: 01/26/25 Stop Date: 01/26/25 Reason for Block: primary anesthetic Patient Position: sitting Performed By: Perico Hand Preanesthetic Checklist: IV checked, risks and benefits discussed, surgical consent, monitors and equipment checked, pre-op evaluation, timeout performed and anesthesia consent Prep: chlorhexidine gluconate Monitoring: blood pressure monitoring, environmental monitoring technician, continuous pulse oximetry and heart rate Approach: midline Vertebral Space: lumbar (1-5) Needle Type: Tuohy needle Injection Technique: continuous catheter (catheter) Needle gauge: 17 Needle Length (cm): 10 cm Needle Insertion Depth (cm): 6 Catheter Gauge: 19 Catheter Type: multi-orifice Catheter at skin depth (cm): 11 Test Dose Result: negative and lidocaine 1.5% with epinephrine 1 to 200,000
[2025-01-26] MEDS: ONDANSETRON 2 MG/ML inj 4 MG IV (09:10)
--- NOTE | 2025-01-26 10:41 | W.PM.VAGDEL1 ---
Procedure Delivery date: 01/26/25 Procedure Done: Global Procedure Details: Normal spontaneous vaginal delivery Vaginal laceration repair Events: GDMA1 and Other (Transient thrombocytopenia (95 on admission 166 on recheck), short interval ) Intrapartal Events: Labor Induction Delivery augmentation: pitocin Delivery monitor: external FHT Route of delivery: Laceration description: Vaginal - 2nd Degree Delivery repair: Vicryl Estimated blood loss (mL): 400 Anesthesia type: Epidural Disposition: floor Complications: None Narrative: Chandrika is a 29 yo at 40w1d GA admitted for IOL for GDMA1. is complicated by GDMA1, transient TCP (95 on admission, normalized to 166 on recheck), GERD, short interval . heart tones on admission were category 1. Her labor was induced with Cook catheter and Pitocin, epidural was utilized for pain management. Status of bag of jin: SROM intrapartum, clear fluid. heart tones during active labor were category 1 primarily. Intermittent category 2 for rare variable decelerations. She was complete at 1002 and started pushing at 1013. She made excellent descent throughout the second stage of labor, and had a normal spontaneous vaginal delivery at 1018. heart tones during second stage of labor were category 2 for intermittent variable decelerations, with rapid return to normal baseline. Baby delivered OA, restituted KIAH and the anterior and posterior shoulders delivered without difficulty. Nuchal cord: none. The cord was clamped and cut after delayed cord clamping. Active management of the third stage occurred with IV pitocin and gentle cord traction and the placenta delivered spontaneous and intact at 1023. Placenta sent for pathologic evaluation due to GDMA1. Cord gases sent: no Cord blood sent for ABO: no details: - Liveborn female fetus at 1018 - weight pending - APGARs were 8 and 8 at 1 and 5 minutes respectively Perineum and vagina were inspected, and the following lacerations were noted: vaginal laceration. Repair was completed in the usual fashion with 3-0 vicryl under epidural analgesia. Excellent hemostasis was noted. Sponge and needle counts confirmed correct. Mother and infant in stable condition following the . [place] Gender: Female presentation: vertex Placental Delivery Description: Spontaneous Cord Description: 3 Vessels
[2025-01-26] MEDS: ACETAMINOPHEN 500 MG TABLET 1000 MG PO ×2 (12:37→19:15)
[2025-01-26] MEDS: IBUPROFEN 600 MG TABLET PO ×2 (16:23→22:15)
[2025-01-27 01:20] VITALS: BP 118/71; PULSE 60; RESP 16; TEMP 36.7; O2SAT 96
[2025-01-27] MEDS: ACETAMINOPHEN 500 MG TABLET 1000 MG PO ×4 (01:27→22:14)
[2025-01-27 05:26] VITALS: BP 97/60; PULSE 82; RESP 16; TEMP 36.4; O2SAT 98
[2025-01-27] MEDS: IBUPROFEN 600 MG TABLET PO ×3 (05:32→18:38)
[2025-01-27 06:19] LABS: Hemoglobin* 10.6 gm/dL (12.0-16.0)
[2025-01-27] MEDS: DOCUSATE SODIUM 100 MG CAPSULE PO (07:40)
[2025-01-27 07:44] VITALS: BP 108/67; PULSE 83; RESP 16; TEMP 36.4; O2SAT 97
[2025-01-27 08:16] LABS: Glucose 2 Hour 209 mg/dl (70-155)
--- NOTE | 2025-01-27 08:26 | PM.OBPNVD1 ---
OB - PN:Subj Subjective Date Seen: 01/27/25 Narrative: Chandrika is a 29 y.o. G 2 P 2 who was admitted to L & D for IOL. ?She had a NVD that was uncomplicated. The patient feels well. ?The pain is well controlled with current medications. ?She has no new complaints. ?She is breast feeding and reports things are going well. the patient has done well.? Vitals have been stable.? She has remained afebrile.? Has a good appetite, is tolerating a general diet. ?She is voiding without difficulty.? She is passing gas and has not had a bowel movement.? She is ambulating and denies any dizziness.? Has small amount of rubra lochia. Problems: GDM, doing 2 hour gct this morning OB - PN: Obj Exam Physical Exam: Vital signs: Temp Pulse Resp BP Pulse Ox O2 Del Method 97.5 F L 83 16 108/67 97 Room Air 01/27/25 07:44 01/27/25 07:44 01/27/25 07:44 01/27/25 07:44 01/27/25 07:44 01/27/25 07:44 Narrative: GENERAL APPEARANCE:? normal affect, alert, no distress MOOD:? appropriate CHEST:? clear to auscultation HEART:? regular rate and rhythm ABDOMEN:? soft, non-tender the uterine fundus is At Umbilicus, Midline and is appropriate for the stage of recovery. PERINEUM:? mild edema of the perineum, there is a Perineal Laceration,?that is healing well. EXTREMITIES:? normal and no edema OB - PN: Obj Data Labs Labs: Laboratory Results - last 24 hr 01/27/25 06:01 Hgb 10.6 L Glucose Tolerance OB - PN: A/P Delivery Assessment and Plan (1) care and examination immediately after delivery: Status: Acute (2) GDM, class A1: Status: Acute (3) Lactating mother: Status: Acute Plan Comments: GDM. 2 hour gct completed this morning. Elevated 2 hour value. Will recommend she follow-up with primary care in the period. , may see if needed? Hgb 10.6.?? For pain control of perineum, breast and pelvic pain, take 600 mg Ibuprofen every 6 hours as needed by mouth or 1000 mg acetaminophen (Tylenol) every 6 hours by mouth as needed. You can alternate these so you are taking something every 3 hours as needed. A heating pad can also be used for your abdomen or breasts. You may also take docusate sodium up to twice daily to soften your stools and help to prevent constipation. You may wean off of it when your stools return to normal.?
[2025-01-27 16:23] VITALS: BP 135/80; PULSE 78; RESP 16; O2SAT 97
[2025-01-27 22:05] VITALS: BP 102/59; PULSE 70; RESP 16; TEMP 36.6; O2SAT 98
[2025-01-28] MEDS: IBUPROFEN 600 MG TABLET PO ×2 (02:04→09:22)
[2025-01-28] MEDS: ACETAMINOPHEN 500 MG TABLET 1000 MG PO (06:33)
--- NOTE | 2025-01-28 08:49 | P.DS_ITS ---
DS: Providers Provider Date Seen: 01/28/25 Date of admission: 01/25/25 16:35 Primary care physician: Hyacinth Looney DO Admitting Clinician: More Andrews MD Attending Physician on discharge: More Andrews MD Date of Discharge: 01/28/25 DS: Diagnosis Discharge Diagnosis (1) Anemia: Status: Acute Problem details: Hemoglobin 10.6 on 01/27/2025 (2) History of gestational diabetes: Status: Acute (3) (normal spontaneous vaginal delivery): Status: Acute Exam Narrative: Exam Narrative: General: Pleasant, no acute distress Heart: Regular rate and rhythm, no murmur or gallop Lungs: Clear to auscultation bilaterally Abdomen: Soft, nontender, fundus well below umbilicus Lower extremities: No edema or erythema Const: Vital Signs, click to edit/add: Vital Signs - 24 hr 01/27/25 16:23 01/27/25 22:05 Temperature 97.9 F Pulse Rate [Blood Pressure Cuff] 78 70 Respiratory Rate 16 16 Blood Pressure [Le ft Arm] 135/80 102/59 L Pulse Oximetry 97 98 Oxygen Delivery Me thod Room Air Room Air OB - DS: Summary Hospital Course Hospital Course: Chandrika is a 29-year-old G2 now P 2 woman who is status post normal spontaneous vaginal delivery on 01/26/2025 at 40 weeks, 1 day gestation. She was diagnosed with likely gestational thrombocytopenia with platelets of 95 at time of admission; this resolved upon recheck and was 166. Ob problem list: # GDM history of gestational diabetes, diet controlled Hemoglobin A1c: 5.1 Elevated 1 hr GTT = 183. 3 hr GTT with 2/4 values elevated Nutrition referral US for growth at 32 and 36 weeks: Completed Delivery recommended at 39 0/7 weeks to 40 6/7 weeks # history of infertility, previous conceived with letrozole + IUI Spontaneous # GERD Omeprazole 20 mg PRN # short interval , last delivery 08/16/2023 She had a normal spontaneous vaginal delivery with vaginal laceration repair on 01/26/2025. She gave to a female . Her hemoglobin was 10.6 on day 1. She did not pass her 2 hr OGTT on day #1; her fasting was normal but 2 hour value was slightly elevated. Today, on day 2, she has no complaints. She is ambulating without difficulty. She denies any heavy bleeding. She is her daughter. Infant Gender: Female Time Spent with Patient Time attestation: Total time spent providing and/or coordinating discharge services: Discharge Plan Discharge Disposition: Home, Self-Care Date of Admission: 01/25/25 16:35 Attending Provider on Discharge: Georgina Fulton Consulting Providers: Katie Shen Primary Care Provider: Hyacinth Looney Condition: Stable Anticipated Discharge Date/Time: 01/28/25 08:52 Discharge Medications: New acetaminophen 500 mg Tablet 1,000 mg PO Q6H PRNQty: 0 0RF docusate sodium 100 mg Capsule 100 mg PO DAILY Qty: 0 0RF ibuprofen 600 mg Tablet 600 mg PO Q6H PRNQty: 0 0RF Lanolin (HPA) 100 % Cream 1 applic topical Q1H PRNQty: 0 0RF Continued prenat.vits,bharat,lha-lfut-tvohc Tablet 1 tab PO QDAY cholecalciferol (vitamin D3) 50 mcg (2,000 unit) capsule 50 mcg PO QDAY magnesium 250 mg tablet 250 mg PO QDAY pyridoxine (vitamin B6) 50 mg tablet 50 mg PO QDAY omeprazole 20 mg capsule,delayed release(DR/EC) 20 mg PO DAILY Qty: 90 1RF Discontinued Unisom (doxylamine) 25 mg tablet 25 mg PO QHS PRN (DME) Test Strips [facility] See Rx Instructions .MEDSUPPLY Qty: 100 3RF Rx Instructions: Test blood sugar 4 times daily. Morning fasting and 2 hours after breakfast, lunch and supper meals. (DME) lancets Misc See Rx Instructions .MEDSUPPLY Qty: 100 3RF Rx Instructions: Test blood sugar 4 times daily. Morning fasting and 2 hours after breakfast, lunch and supper meals. (DME) Blood Glucose Meter Mis See Rx Instructions .MEDSUPPLY Qty: 1 0RF Rx Instructions: Test blood sugar 4 times daily. Morning fasting and 2 hours after breakfast, lunch and supper meals. Discharge Orders: Discharge Order (Routine); Ordered 01/28/25 Ordered By: Georgina Fulton Patient Education: OB Over the Counter Medication Information, OB Vaginal/Breast Feeding Activity Level: No Restrictions Discharge Diet: Regular Follow Up Appointments: [facility] [Provider Group] Hyacinth Looney DO [Primary Care Provider, [facility]] Forms: Patient Belongings, MyHealth Info Instructions Discharge Comments: Follow up with Dr. Looney for management of impaired glucose tolerance DS:Data Additional Comments Additional comments: Fasting glucose 84, 2 hour glucose challenge elevated at 209 (upper limit normal 155)
[2025-01-28] MEDS: DOCUSATE SODIUM 100 MG CAPSULE PO (09:22)
[2025-01-28 09:40] VITALS: BP 112/71; PULSE 64; RESP 16; O2SAT 98
== END 2025-01-28 11:05 | disposition home or self-care (01) | DRG 560 ==
PROVIDERS: Obstetrics & Gynecology; Admitting Provider Obstetrics & Gynecology; PCP Family Medicine; Visit Provider Obstetrics & Gynecology
DX: O24.420 Gestational diabetes mellitus in childbirth, diet controlled (principal); O99.12 Other diseases of the blood and blood-forming organs and certain disorders involving the immune mechanism complicating childbirth; D69.6 Thrombocytopenia, unspecified; K21.9 Gastro-esophageal reflux disease without esophagitis; O70.1 Second degree perineal laceration during delivery; Z3A.40 40 weeks gestation of pregnancy; Z37.0 Single live birth
CPT/HCPCS: 01967; 36415; 59200; 82947; 82950; 82962; 85018; 85025; 86592; 86850; 86900; 86901; 88307; 94761; A9270; C1726; J2405; J2795; J7120

== ENCOUNTER 2025-02-09 13:03 | Outpatient (CLI) | payer BC, SELFPAY ==
--- NOTE | 2025-02-09 16:19 | P.LACCB_ITS ---
Consult Note - Mom Date of Visit Date of visit: 02/09/25 Reason for consultation: Assistance Needed Visit Code: Visit Patient's Information Phone number: [phone] : 2 Para: 2 Allergies amoxicillin Allergy (Mild, Verified 01/25/25 17:02) Rash fructose Adverse Reaction (Intermediate, Uncoded 01/24/25 14:37) malabsorbtion. 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) ?E74.10 - Disorder of fructose metabolism, unspecified (ICD-10) Infertility management ?Z31.9 - Encounter for procreative management, unspecified (ICD-10) Delivery Information Delivery type: Vaginal Gestational Age: 40+1 Gestational Weight For Age: AGA Weight: 3.255 kg Discharge Weight: 2.988 kg Percentage weight loss: 8.3 Baby's Information Baby's Age at Visit: 14 days Baby's Provider or Clinic: [facility] Jaundice: No Past Experience Past Experience: Yes Current Frequency of Day Feedings: 2.5-3 hours day and night Both Breasts: No (currently pumping and bottling) Suck: weak Pumping Pumping: Yes Quantity Pumped: getting 3-4 oz/pump Supplementing EBM Supplement: Yes (taking 2-2.5oz every feeding; takes 15-45 min) Baby Elimination Number of Wet Diapers a Day: ea feeding Number of BM a Day: 6+/day Breast/Nipple Condition Breast Information: Breasts are symmetrical with rounded lower quadrants, intramammary distance is less than 1.5 inches. No erythema. Nipples are supple, everted prior to feeding. Breast Shape: Round Engorgement: No Maternal Nipple Condition - Left: Common Nipple Maternal Nipple Condition - Right: Common Nipple Sore Nipples: No Baby Assessment Skin: Normal Tongue/frenulum: Normal/elastic and Restricted mid-range (possibly; due to small mouth and tightness, diff to assess fully under tongue for posterior tie) Palate: Average Lips: Relaxed and Symmetrical Jaw Alignment: Symmetrical Mucosa: [place], moist Onsite Observation Pre-Feed weight: 3.298 kg Position: Cross cradle and Football Attachment/latch-on achieved: Not achieved Pre-Nursing Left Nipple: Within Normal Limits Pre-Nursing Right Nipple: Within Normal Limits Assessments/Interventions Assessments/Interventions: [place] almost latched to mom's left breast; tolerate the nipple/breast in her mouth but would not sustain a sucking rhythm to transfer milk Attempted SNS to stimulate sucking behavior without success After 15 min of varying attempts, bottle was given; using Dr. French, baby had transferred 5 ml in about 10 minutes; has a sloppy suck; suck is more chompy than rhythmic as well Given a bottle from the center and baby able to teradata solution architect this bottle/nipple better and transferred 55ml in about 10 minutes Parents have video of baby having a hard time getting sucking on a pacifier; it looks like she can't find the pacifier to teradata solution architect on. Education provided: Early feeding cues to maximize timing of latching, Asymmetric latch technique for wide/deep latch to increase milk, Transfer for baby and increase comfort for mom, Supply/demand nature of milk supply, Alternative feeding methods (SNS, cup, finger feeding, bottling), Use of nipple shield and Pumping for milk management Handouts Provided: Tongue tie information Feeding Plan: Feed every 3 hrs during the day; can go 4 hrs at night now that she's back to birthweight Discussed other bottle options (Spectra, Evenflo, Lansinoh, [place]) Craniosacral therapy to release tension to help neck and jaw move in more alignment Consider referral for tongue tie evaluation in 1-2 weeks if PEOPLESOFT TALEO MANAGER does not help Jaw massage and tug of war exercise to help strengthen suck Guppy pose to release tension If this does not work, and no improvement within 2 weeks or so, referral to BOTTLE CAPPING MACHINE OPERATOR for feeding evaluation, sooner if weight gain is at all an issue Mom to continue pumping and bottling to protect milk supply Continue offering breast feeding 2-3 times/day to keep baby accustom to the breast while work through feeding challenges Follow-Up Suggested follow up: Appointment as needed Time Spent Time spent with patient (min): 60 Meds Home Medications and Allergies Home Medications ?Medication ?Instructions ?Recorded ?Confirmed ?Type prenat.vits,bharat,ydj-[id number] 1 tab PO QDAY 11/27/21 01/25/25 History cholecalciferol (vitamin D3) 50 50 mcg PO QDAY 3 01/25/25 History mcg (2,000 unit) capsule magnesium 250 mg tablet 250 mg PO QDAY 09/29/2301/03 History pyridoxine (vitamin B6) 50 mg 50 mg PO QDAY 09/29/23 0 01/25/25 History tablet omeprazole 20 mg capsule,delayed 20 mg PO DAILY #90 ca ps 12/21/24 01/25/25 Rx release acetaminophen 500 mg tablet 1,000 mg (2 x 500 mg) PO Q 6H PRN 01/28/25 Rx #0 tabs docusate sodium 100 mg capsule 100 mg PO DAILY #0 caps 01/28/25 Rx ibuprofen 600 mg tablet 600 mg PO Q6H PRN #0 tabs Rx modified lanolin 100 % topical 1 applic topical Q1H MS N #0 grams 01/28/25 Rx cream (Lanolin (HPA)) Allergies Allergy/AdvReac Type Severity Reaction Status Date / Time amoxicillin Allergy Mild Rash Verified 01/25/25 17:02 fructose AdvReac Intermediate malabsorbti Uncoded 01/24/25 14:37 on.
== END 2025-02-09 13:04 | disposition home or self-care (01) ==
LOC: OB LAC 13:03
PROVIDERS: PCP Family Medicine; Visit Provider Obstetrics & Gynecology
DX: Z39.1 Encounter for care and examination of lactating mother (principal)
CPT/HCPCS: G0463